=== PATIENT | female | born 1970 | race Caucasian/White ===

== ENCOUNTER 2021-01-13 11:05 | Emergency (ER) | payer SELFPAY ==
[2021-01-13 11:11] VITALS: BP 148/86; PULSE 116; RESP 20; TEMP 36.8; O2SAT 96; BMI 32.2
--- NOTE | 2021-01-13 13:02 | CT_ITS ---
WS: [id number] CT ABDOMEN PELVIS TECHNIQUE: Contrast-enhanced CT of the abdomen and pelvis with coronal and sagittal reformatted image s. CLINICAL INFORMATION: abd pain COMPARISON: CT 11 DLP: 1744.[address] scans at [facility] use at least one of these dose optimization techniques: automat ed exposure control; mA and/or kV adjustment per patient size (includes targeted exams where dose is matched to clinical indication); or iterative reconstruction. FINDINGS: Diffuse fatty infiltration the liver. Normal portal vein and splenic vein. Interval cholecystectomy. Small hemangioma in the left hepatic lobe. Normal spleen. Normal GE junction. Lung bases are well aer ated. Bronchiectasis in the left lower lobe is unchanged since 2017. Fatty atrophy of the pancreas. Normal spleen. Adrenal glands are normal. Normal renal parenchymal enh ancement. No hydronephrosis. Bilateral renal cysts. Normal caliber abdominal aorta. Tortuous appendix right lower quadrant appears normal. No evidence of acute appendicitis. Normal sigm oid colon. No evidence of small or large bowel obstruction. Enhancement involving the terminal ileum can be seen with terminal ileitis is similar in appearance to 2017. No free fluid in the pelvis. No a bdominal or pelvic lymphadenopathy. No inguinal lymphadenopathy. CT/CT abdomen pelvis w con* [id number] IMPRESSION: 1. Tortuous appendix in the right lower quadrant appears normal. 2. Mild diffuse fatty infiltration liver. 3. Prior cholecystectomy. 4. Small amount of enhancement involving the terminal ileum can be seen with t erminal ileitis. This is similar in appearance to 2017. 5. No evidence of small or large bowel obstruction.
--- NOTE | 2021-01-13 13:03 | CT_ITS ---
WS: [id number] CT HEAD TECHNIQUE: Noncontrast CT of the head obtained from the skullbase to the vertex. CLINICAL INFORMATION: headache dizziness, vision changes COMPARISON: CT 8 14,010 DLP: 843.[address] scans at [facility] use at least one of these dose optimization techniques: automat ed exposure control; mA and/or kV adjustment per patient size (includes targeted exams where dose is matched to clinical indication); or iterative reconstruction. FINDINGS: No evidence of intracranial hemorrhage or mass effect. Ventricular system and basal cisterns are mckeon nt. Mild small vessel changes with mild parenchymal volume loss. No extra-axial fluid collections. No evidence of mass or mass effect. Normal guillen-white differentiation. Fluid in the paranasal sinuses consistent with sinusitis. Mild mucosal thickening mastoid tips. CT/CT head wo con* [id number] IMPRESSION: 1. No evidence of intracranial hemorrhage or mass effect. 2. Mild small vessel changes. Mild parenchymal volume loss. 3. Paranasal sinusitis with air-fluid levels in the maxillary sinuses. 4. Mild mucosal thickening mastoid tips. 5. No acute intracranial findings.
--- NOTE | 2021-01-13 13:04 | ED_ITS ---
HPI - General Adult General: Chief complaint: General Medical Stated complaint: ABD PAIN, VISION COMING/GOING Time Seen by Provider: 01/13/21 12:53 History of Present Illness: HPI narrative: 44-year-old female presents emergency room with several vague complaints, some of which seem unconnected. Her main complaint seems to be nausea vomiting and diarrhea that she began with at around 2 AM this morning she woke up diaphoretic with for vertigo. She did not really take anything for it so far she has had similar problem in the past the vertigo has decreased some she denies any medic easy melena hematemesis coffee-ground she has had some dysuria she also is complaining of some right lower quadrant abdominal pain radiating into her right upper thigh. She is not previously had this. She relates as a new pain. Vision changes have resolved. Onset (ago): hour(s) Location: abdomen Radiation: non-radiation Severity: moderate Quality: aching Pain Consistency: intermittent Relieving factors: none Associated symptoms: Reports decreased appetite and vomiting; Deny chest pain, confusion, cough, diaphoresis, dyspnea, fevers/chills, headache(s), malaise, nausea, rash, palpitations, seizures, short of breath, syncope or weakness Treatments prior to arrival: none Review of Systems Const: Denies: malaise or diaphoresis ENMT: Denies: throat pain, ear or mastoid pain, nasal discharge or nasal congestion Card: Denies: chest pain, palpitations or syncope Resp: Denies: dyspnea GI: Reports: vomiting; Denies: nausea : Denies: flank pain, difficulty voiding, dysuria, urinary frequency or urinary urgency Skin/Breast: Denies: rash Neuro: Denies: headache(s) or confusion Physical Exam Const: COMMON NORMALS: no acute distress GENERAL APPEARANCE: cooperative and comfortable ORIENTATION/CONSCIOUSNESS: Yes awake, Yes oriented to person, Yes oriented to place and Yes oriented to time HENMT: COMMON NORMALS: normocephalic, atraumatic, hearing grossly normal bilaterally and external ears normal HEAD & SCALP: normocephalic and atraumatic EXTERNAL EAR: Yes external ears normal Neck/C-Spine: COMMON NORMALS: no JVD Resp: COMMON NORMALS: normal respiratory effort, No retractions, No use of accessory muscles and clear to auscultation bilaterally AUSCULTATION: clear to auscultation bilaterally Cardio: COMMON NORMALS: no JVD, regular rate, regular rhythm and No murmurs present (Cardio) RATE: regular rate RHYTHM: regular rhythm GI: COMMON NORMALS: No hepatosplenomegaly present AUSCULTATION: Yes normoactive bowel sounds PALPATION: Yes Tenderness to palpation present (GI), No Guarding due to palpation present (GI) and Yes No hepatosplenomegaly present Extremity: COMMON NORMALS: normal to inspection, capillary refill normal, no clubbing, cyanosis or edema, no calf tenderness and no pedal edema Neuro: SENSORIUM/ORIENTATION: Yes oriented to person, Yes oriented to place and Yes oriented to time Skin: COMMON NORMALS: no rashes or lesions noted GENERAL SKIN EXAM: no rashes or lesions noted Course Vital Signs: Vital signs: Vital Signs Temperature 98.2 F 01/13/21 11:11 Pulse Rate 79 01/13/21 15:36 Respiratory Rate 18 01/13/21 15:36 Blood Pressure 95/58 01/13/21 15:36 Pulse Oximetry 79 L 01/13/21 15:36 MDM - General Adult MDM Narrative: Medical decision making narrative: Symptoms improved work-up reviewed with the patient no significant finding were hemoglobin discharged home fluids of seem to help we will give her antiemetics on the CT there is a questionable colitis I am going to start her on some Flagyl and Cipro. Give her promethazine to help with nausea as well as dizziness and if she has persistent she needs follow-up with primary care for further evaluation if worsening or changes return Lab Data: Labs: Lab Results 01/13/21 01/13/21 01/13/21 Range/Units 13:24 13:24 14:24 WBC 16.9 H (4.0-10.0) 10^3/ uL RBC 5.35 H (4.1-5.3) 10^6/u L Hgb 15.5 H (11.5-15.3) g/dL Hct 48.1 H (37.0-47.0) % MCV 89.9 (81-99) fL MCH 29.0 (28.0-34.0) pg MCHC 32.2 (30.0-36.0) g/dL RDW 13.3 (12.1-15.1) % Plt Count 284 (130-400) 10^3/c mm MPV 10.3 (7.4-10.4) fL Neut % (Auto) 86.5 % Lymph % (Auto) 8.0 % [place] % (Auto) 4.4 % Eos % (Auto) 0.4 % Baso % (Auto) 0.3 % Neut # (Auto) 14.63 H (1.8-7.7) 10^3/u L Lymph # (Auto) 1.4 (0.8-4.8) 10^3/u L [place] # (Auto) 0.7 (0.2-0.9) 10^3/u L Eos # (Auto) 0.1 (0.0-0.8) 10^3/u L Baso # (Auto) 0.1 (0.0-0.1) 10^3/u L Nucleated RBC % (a uto) 0 % Nucleated RBCs # 0.0 /100WBC Sodium Cancelled Potassium Cancelled Chloride Cancelled Carbon Dioxide Cancelled Anion Gap Cancelled BUN Cancelled Creatinine Cancelled GFR Calculation Cancelled Glucose Cancelled Calculated Osmolal ity Cancelled Calcium Cancelled Total Bilirubin Cancelled AST Cancelled ALT Cancelled Alkaline Phosphata se Cancelled Total Protein Cancelled Albumin Cancelled Globulin Cancelled Urine Color Yellow (Yellow) Urine Appearance Clear (CLEAR) Urine pH 5 (5-7) Ur Specific Gravit y 1.010 (1.005-1.030) Urine Protein 1+ H (Negative) Urine Glucose (UA) Norm (Normal) Urine Ketones Negative (Negative) Urine Blood 2+ H (Negative) Urine Nitrate Negative (Negative) Urine Bilirubin Neg (Negative) Urine Urobilinogen Norm (Negative) mg/dL Ur Leukocyte Mamta ase Negative (Negative) Urine RBC 0-4 H (0-2) /hpf Urine WBC None (0-5) /hpf Ur Squamous Epith Cells 0-4 H (0-5) /hpf Amorphous Sediment Not Reportable Urine Bacteria Trace (NONE) /hpf 01/13/21 Range/Units 14:35 WBC (4.0-10.0) 10^3/ uL RBC (4.1-5.3) 10^6/u L Hgb (11.5-15.3) g/dL Hct (37.0-47.0) % MCV (81-99) fL MCH (28.0-34.0) pg MCHC (30.0-36.0) g/dL RDW (12.1-15.1) % Plt Count (130-400) 10^3/c mm MPV (7.4-10.4) fL Neut % (Auto) % Lymph % (Auto) % [place] % (Auto) % Eos % (Auto) % Baso % (Auto) % Neut # (Auto) (1.8-7.7) 10^3/u L Lymph # (Auto) (0.8-4.8) 10^3/u L [place] # (Auto) (0.2-0.9) 10^3/u L Eos # (Auto) (0.0-0.8) 10^3/u L Baso # (Auto) (0.0-0.1) 10^3/u L Nucleated RBC % (a uto) % Nucleated RBCs # /100WBC Sodium 136 Potassium 4.2 Chloride 101 Carbon Dioxide 21 L Anion Gap 18.2 BUN 14 Creatinine 0.5 GFR Calculation 131.7 H Glucose 99 Calculated Osmolal ity 283 L Calcium 9.2 Total Bilirubin 0.5 AST 12 ALT 18 Alkaline Phosphata se 120 H Total Protein 7.8 Albumin 4.8 Globulin 3.0 Urine Color (Yellow) Urine Appearance (CLEAR) Urine pH (5-7) Ur Specific Gravit y (1.005-1.030) Urine Protein (Negative) Urine Glucose (UA) (Normal) Urine Ketones (Negative) Urine Blood (Negative) Urine Nitrate (Negative) Urine Bilirubin (Negative) Urine Urobilinogen (Negative) mg/dL Ur Leukocyte Mamta ase (Negative) Urine RBC (0-2) /hpf Urine WBC (0-5) /hpf Ur Squamous Epith Cells (0-5) /hpf Amorphous Sediment Urine Bacteria (NONE) /hpf Discharge Plan Discharge Patient Disposition: Home Clinical Impression: Colitis, Dizziness Condition: Stable Prescriptions: New promethazine 25 mg tablet 25 mg PO Q6H PRN (Reason: nausea and vomiting) Qty: 20 RF: 0 Cipro 500 mg tablet 500 mg PO BID Qty: 20 RF: 0 Flagyl 500 mg tablet 500 mg PO BID 7 Days Qty: 14 RF: 0 Discharge Orders: Discharge ED (Routine); Ordered 01/13/21 Ordered By: Alexi Aranda Referrals: Lennox Moore MD [Primary Care Provider] - Discharge Diet: Clear Liquid Discharge Activity: Increase activity as tolerated Patient Instructions: Opioid Safety Coding Level of Care Code 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
[2021-01-13 13:29] LABS: Basophils # 0.1 10^3/uL (0.0-0.1); Basophils % 0.3 %; Eosinophils # 0.1 10^3/uL (0.0-0.8); Eosinophils % 0.4 %; Hematocrit 48.1 % (37.0-47.0); Hemoglobin 15.5 g/dL (11.5-15.3); Lymphocytes # 1.4 10^3/uL (0.8-4.8); Mean Corpuscular HGB Conc 32.2 g/dL (30.0-36.0); Mean Corpuscular Volume 89.9 fL (81-99); Mean Platelet Volume 10.3 fL (7.4-10.4); Monocytes # 0.7 10^3/uL (0.2-0.9); Monocytes % 4.4 %; Neutrophils # 14.63 10^3/uL (1.8-7.7); Neutrophils % 86.5 %; Nucleated Red Blood Cells % 0 %; Platelet Count 284 10^3/cmm (130-400); Red Blood Count 5.35 10^6/uL (4.1-5.3); Red Cell Distribution Width 13.3 % (12.1-15.1); White Blood Count 16.9 10^3/uL (4.0-10.0)
[2021-01-13] MEDS: sodium chloride 0.9% 1,000 ML 999 ML IV (13:36)
[2021-01-13] MEDS: ondansetron 2 mg/ML SDV 2 mL 4 MG IVP (13:36)
[2021-01-13] MEDS: iohexol 300 mg/mL 100 mL Btl IV (13:55)
[2021-01-13 14:44] LABS: Add Urine Microscopic? YES; Bilirubin Urine Neg (Negative); Blood Urine 2+ (Negative); Glucose Urine UA Norm (Normal); Ketones Urine Negative (Negative); Leukocyte Esterase Urine Negative (Negative); Nitrate Urine Negative (Negative); Protein Urine 1+ (Negative); Urine Appearance Clear (CLEAR); Urine Color Yellow (Yellow); Urobilinogen Urine Norm (Negative); pH Urine 5 (5-7)
[2021-01-13 14:46] LABS: Add Urine Culture? No; Bacteria Urine TRACE /hpf; RBC Urine 0-4 /hpf (0-2); Squamous Epithelial Cell Urine 0-4 /hpf (0-5)
[2021-01-13 15:03] LABS: Alanine Aminotransferase 18 U/L (0-33); Albumin Level 4.8 g/dL (3.5-5.2); Alkaline Phosphatase 120 IU/L (35-105); Anion Gap 18.2 (5-19); Aspartate Amino Transferase 12 U/L (0-32); Blood Urea Nitrogen 14 mg/dL (6-20); Calcium 9.2 mg/dL (8.5-10.5); Carbon Dioxide 21 mmol/L (22-29); Chloride 101 mmol/L (98-107); Glomerular Filtration Rate 131.7 mL/min (90-130); Glucose 99 mg/dL (65-115); Osmolality Calculated 283 mOsm/kg (285-295); Potassium 4.2 mmol/L (3.5-5.1); Sodium 136 mmol/L (136-145); Total Bilirubin 0.5 mg/dL (0.15-1.2); Total Protein 7.8 g/dL (6.6-8.7)
[2021-01-13 15:36] VITALS: BP 95/58; PULSE 79; RESP 18; O2SAT 79
== END 2021-01-13 16:44 | disposition home or self-care (01) ==
PROVIDERS: Emergency Provider Family Medicine; PCP Family Medicine
DX: K52.9 Noninfective gastroenteritis and colitis, unspecified (principal); R42 Dizziness and giddiness
CPT/HCPCS: 36415; 70450; 74177; 80053; 81001; 85025; 96361; 96374; 99283; J2405; J7030; Q9967

== ENCOUNTER 2021-05-17 11:23 | Emergency (ER) | payer SELFPAY ==
[2021-05-17 12:04] VITALS: BP 151/93; PULSE 93; RESP 18; TEMP 36.6; O2SAT 97; BMI 31.7
--- NOTE | 2021-05-17 12:13 | PC.NURSE ---
notified provider and charge nurse. Pt symptoms, flaccid right side of face since yesterday with pain to back of head and neck pain and difficulty swallowing.
--- NOTE | 2021-05-17 12:19 | W.ED.NEUROSD ---
HPI - Neuro Symptoms/Deficit General: Chief Complaint: Neuro Symptoms/Deficit Stated Complaint: Weakness right side of face, poss stroke Time Seen by Provider: 05/17/21 12:19 History of Present Illness: HPI Narrative: Ms. Lam is a 51-year-old lady with no significant past medical history presents emergency department due to facial numbness and tingling. Symptom onset was 2 days ago when she first noticed tingling in her lip. She subsequently developed weakness and facial droop on the right. This involves both the forehead and the mouth. She has difficulty swallowing subjectively and does have liquids run out of her mouth. She additionally endorses right posterior headache above the ear however this has been chronic for her and longstanding. 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 No rash. No head trauma. No other significant changes in health reported or infectious symptoms. 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 Symptom intensity is moderate. Pain is aching and shooting. Upon further discussion patient did endorse one episode of right hand weakness just prior to coming in. Review of Systems General: Reports: 10 or more systems reviewed and unremarkable except in HPI and below Physical Exam Narrative: EXAM NARRATIVE: GENERAL/CONSTITUTIONAL - well-appearing. No acute distress. Eyes - PERRL, no conjunctival injection ENMT - Atraumatic external nose and ears. Moist mucous membranes. TMs normal. No mastoid tenderness. NECK - supple. trachea midline CARDIOVASCULAR - regular rate and rhythm. Peripheral pulses 2+ and equal RESPIRATORY -clear to auscultation bilaterally. No retractions or accessory muscle use. ABDOMEN/GI - Nontender/Nondistended. No tenderness to percussion or evidence of peritonitis MSK - Extremities without obvious deformity or tenderness to palpation SKIN - Warm, Dry. No rashes. NEURO - alert and appropriately oriented. Right-sided facial droop involving both forehead and lower face. Cranial nerves otherwise intact. PSYCH - Appropriate mood and affect Course ED course: - Patient was seen and evaluated by me at bedside - Patient placed on cardiac monitors, IV access obtained - Initial evaluation notable for right-sided upper and lower facial droop, otherwise as noted above. No acute distress - Clinical presentation initially extremely consistent with Cullen's palsy however the patient subsequently endorses a history of an episode of right hand difficulty using a pen and tingling. Additionally she reports headache which is somewhat atypical for her in the posterior aspect of her right head. Therefore, after discussion of risk and benefit, we will pursue imaging at this time. - Imaging notable for no acute abnormality to explain neurologic symptoms, she does have some likely sinusitis. She describes an extended course of facial pressure associated with headache which raises concern for bacterial sinusitis - Upon serial reexamination after treatment the patient was similar. No new observed or reported neurologic deficits - Based on patient history, evaluation, labs, and imaging as interpreted the most likely cause of the patient's condition is Cullen's palsy and bacterial sinusitis - The results of ED evaluation were discussed with the patient including prescriptions and/or symptomatic cares (if applicable) including appropriate and responsible use, followup plan, and return precautions. The patient verbalized understanding and felt safe for discharge. - Patient discharged in satisfactory condition. Vital Signs: Vital signs: Vital Signs Temperature 97.9 F 05/17/21 12:04 Pulse Rate 78 05/17/21 15:45 Respiratory Rate 20 H 05/17/21 15:45 Blood Pressure 147/96 05/17/21 15:45 Pulse Oximetry 97 05/17/21 15:45 MDM - Neuro Symptoms/Deficit Medical Records: Attestation: I reviewed the patient's medical records. Lab Data: Attestation: I reviewed the patient's lab results. Discharge Plan Discharge Patient Disposition: Home Clinical Impression: Cullen's palsy, Sinusitis Condition: Stable Prescriptions: New Augmentin 875-125 mg tablet 1 tab PO BID Qty: 14 RF: 0 prednisone 20 mg tablet 60 mg PO DAILY Qty: 7 RF: 0 Discharge Orders: Discharge ED (Routine); Ordered 05/17/21 Ordered By: Efe Dominguez Referrals: Lennox Moore MD [Primary Care Provider] - Discharge Diet: Usual diet Discharge Activity: Resume usual activity Patient Instructions: Sinusitis (ED), Cullen Palsy (ED) Activity Restrictions/Additional Instructions: Thank you for visiting the emergency department. You were seen and evaluated for concern over facial droop. The cause of your symptoms is likely related to a condition called Cullen's palsy. You will be given a course of steroids. Incidentally you also have sinusitis which based on symptoms is likely bacterial. Please take the complete course even if you feel improved. Please return to the emergency department for new neurologic symptoms such as numbness, tingling, weakness, confusion, or anything else that you are concerned about and feel needs emergency department evaluation. 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
--- NOTE | 2021-05-17 12:55 | CTR_ITS ---
PROCEDURE INFORMATION: Exam: CT Angiography Head With Contrast, Arteriography Exam date and time: 05/17/2021 12:55 PM Age: 51 years old Clinical indication: Numbness; Patient HX: C/O R facial droop and weakness w difficulty swallowing x 2 days; Additional info: Stroke like symptoms TECHNIQUE: Imaging protocol: Computed tomography angiography of the head with contrast. Exam focused on the arteries. 3D rendering (Not supervised by radiologist): MIP and/or 3D reconstructed images were created by the technologist. Radiation optimization: All CT scans at this facility use at least one of these dose optimization techniques: automated exposure control; mA and/or kV adjustment per patient size (includes targeted exams where dose is matched to clinical indication); or iterative reconstruction. Contrast material: OMNI 350; Contrast volume: 95 ml; Contrast route: INTRAVENOUS (IV); COMPARISON: CT head wo con* [id number] 05/17/2021 1:50 PM RADIATION DOSE METRICS: Total DLP (mGy-cm): 2021.6 FINDINGS: ANTERIOR CIRCULATION: Right internal carotid artery: There is calcified plaque in the carotid siphons with luminal irregularity. No significant focal stenosis. No aneurysm. Right middle cerebral artery: Unremarkable. No occlusion or significant stenosis. No aneurysm. Right anterior cerebral artery: Unremarkable. No occlusion or significant stenosis. No aneurysm. Left internal carotid artery: There is calcified plaque in the carotid siphons with luminal irregularity. No significant focal stenosis. No aneurysm. Left middle cerebral artery: Unremarkable. No occlusion or significant stenosis. No aneurysm. Left anterior cerebral artery: Unremarkable. No occlusion or significant stenosis. No aneurysm. POSTERIOR CIRCULATION: Right vertebral artery: Unremarkable. No occlusion or significant stenosis. No aneurysm. Left vertebral artery: Unremarkable. No occlusion or significant stenosis. No aneurysm. Basilar artery: Unremarkable. No occlusion or significant stenosis. No aneurysm. Right posterior cerebral artery: Unremarkable. No occlusion or significant stenosis. No aneurysm. Left posterior cerebral artery: Unremarkable. No occlusion or significant stenosis. No aneurysm. Brain: No definite mass, mass effect, or midline shift. Cerebral ventricles: No ventriculomegaly. Bones/joints: Unremarkable. No acute fracture. Soft tissues: Unremarkable. There is mucosal thickening of the ethmoid air cells and maxillary sinuses. Air-fluid levels are present in the maxillary sinuses. Frothy secretions are present in the nasopharynx and oropharynx. A frothy air-fluid levels present in the right frontal sinus. IMPRESSION: No large vessel stenosis, occlusion, or large aneurysm. There is paranasal sinusitis as described above. PROCEDURE INFORMATION: Exam: CT Angiography Neck With Contrast Exam date and time: 05/17/2021 12:55 PM Age: 51 years old Clinical indication: Numbness; Patient HX: C/O R facial droop and weakness w difficulty swallowing x 2 days; Additional info: Stroke like symptoms TECHNIQUE: Imaging protocol: Computed tomography angiography of the neck with contrast. 3D rendering (Not supervised by radiologist): MIP and/or 3D reconstructed images were created by the technologist. Radiation optimization: All CT scans at this facility use at least one of these dose optimization techniques: automated exposure control; mA and/or kV adjustment per patient size (includes targeted exams where dose is matched to clinical indication); or iterative reconstruction. Contrast material: OMNI 350; Contrast volume: 95 ml; Contrast route: INTRAVENOUS (IV); COMPARISON: CT head wo con* [id number] 05/17/2021 1:50 PM RADIATION DOSE METRICS: Total DLP (mGy-cm): 2021.6 FINDINGS: Right common carotid artery: Mild atherosclerotic plaque. No stenosis. No dissection or occlusion. Right internal carotid artery: Mild atherosclerotic plaque. No stenosis of the extracranial segment. No dissection or occlusion. Right external carotid artery: No occlusion or stenosis of the origin. Left common carotid artery: Mild atherosclerotic plaque. No stenosis. No dissection or occlusion. Left internal carotid artery: Mild atherosclerotic plaque. No stenosis of the extracranial segment. No dissection or occlusion. Left external carotid artery: No occlusion or stenosis of the origin. Right vertebral artery: No stenosis. No dissection or occlusion. Left vertebral artery: No stenosis. No dissection or occlusion. Soft tissues: Normal. No significant soft tissue swelling. Bones/joints: No acute fracture. CT/CT angio headneck* [id number] IMPRESSION: No stenosis or occlusion. REFERENCES: NASCET CRITERIA. The degree of internal carotid artery stenosis is based on NASCET criteria. Normal is no stenosis. Mild is less than 50% stenosis. Moderate is 50-69% stenosis. Severe is 70% to 99% stenosis. Total occlusion is no detectable patent lumen. Radiation Dose CTDIVOL = (mGy): DLP = 2.6~2021.6 (mGy-cm)
--- NOTE | 2021-05-17 12:55 | CTR_ITS ---
PROCEDURE INFORMATION: Exam: CT Head Without Contrast Exam date and time: 05/17/2021 12:55 PM Age: 51 years old Clinical indication: Facial weakness. Complains of right facial droop and weakness with difficulty swallowing x 2 days. Right facial numbness/weakness. Arm weakness. TECHNIQUE: Imaging protocol: Computed tomography of the head without contrast. Radiation optimization: All CT scans at this facility use at least one of these dose optimization techniques: automated exposure control; mA and/or kV adjustment per patient size (includes targeted exams where dose is matched to clinical indication); or iterative reconstruction. COMPARISON: CT head wo con* [id number] 01/13/2021 1:43 PM RADIATION DOSE METRICS: Total DLP (mGy-cm): 825.31 FINDINGS: Brain: No acute intracranial hemorrhage. Unchanged lacunar infarct in the right basal ganglia. No mass, mass effect or midline shift.. There is no evidence of acute large vessel infarct.. There is very mild presumed small vessel ischemic disease of indeterminate age. The posterior fossa is grossly unremarkable; however, it is partially obscurred by beam hardening artifact. Cerebral ventricles: The ventricles are unchanged in configuration. Paranasal sinuses: There is mucosal thickening in the maxillary and ethmoid sinuses. There is partial opacification of several ethmoid air cells. There is opacification of the right frontal ethmoidal recess. There is layering fluid in the maxillary sinuses. Mastoid air cells: There is opacification of a few mastoid air cells bilaterally. Auditory system: Probable cerumen in the left external auditory canal. Orbital cavity: The visualized orbits are unremarkable. Bones/joints: No acute fracture is seen. CT/CT head wo con* [id number] IMPRESSION: 1. Very mild presumed small vessel ischemic disease of indeterminate age. 2. No evidence of acute large vessel infarct by noncontrast CT. 3. No acute intracranial hemorrhage. 4. Acute sinusitis as above. Radiation Dose CTDIVOL = (mGy): DLP = 825.31 (mGy-cm)
[2021-05-17] MEDS: iohexol 350 mg/mL 100 mL Btl IV (14:03)
[2021-05-17 14:08] VITALS: BP 176/110; PULSE 83; RESP 13; O2SAT 96
[2021-05-17 15:08] VITALS: BP 147/96; PULSE 78; RESP 20; O2SAT 97
[2021-05-17 15:45] VITALS: BP 147/96; PULSE 78; RESP 20; O2SAT 97
== END 2021-05-17 15:46 | disposition home or self-care (01) ==
PROVIDERS: Emergency Provider Emergency Medicine; PCP Family Medicine
DX: G51.0 Bell's palsy (principal); J32.9 Chronic sinusitis, unspecified
CPT/HCPCS: 70450; 70496; 70498; 99283; Q9967

== ENCOUNTER 2022-05-25 19:20 | Emergency (ER) | payer MEDICAID, SELFPAY ==
[2022-05-25 19:30] VITALS: BP 148/78; PULSE 94; RESP 18; TEMP 36.7; O2SAT 97; BMI 30.9
--- NOTE | 2022-05-25 20:22 | W.ED.ABDPA2 ---
HPI - Abdominal Pain General: Chief Complaint: Abdominal Pain Stated Complaint: ABD Pain Time Seen by Provider: 05/25/22 20:22 History of Present Illness: [id number] female comes in today for complaints of right upper quadrant abdominal pain radiating to the groin. Patient reports the pain is been on and off for 1 month. Was unable to control the pain with home medications. Patient been using acetaminophen and ibuprofen for pain. Patient takes no routine medicine. Patient has had gallbladder removal. Patient denies any other chronic medical conditions. Associated Symptoms: Reports nausea and vomiting; Denies fever(s) Review of Systems Const: Denies: fever(s) GI: Reports: abdominal pain, nausea and vomiting Musc: Denies: neck pain or back pain Skin/Breast: Denies: rash or pruritus Physical Exam Const: COMMON NORMALS: alert HENMT: COMMON NORMALS: normocephalic HEAD & SCALP: normocephalic Neck/C-Spine: COMMON NORMALS: full ROM Resp: COMMON NORMALS: normal respiratory effort and clear to auscultation bilaterally AUSCULTATION: clear to auscultation bilaterally Cardio: COMMON NORMALS: regular rate and regular rhythm RATE: regular rate RHYTHM: regular rhythm GI: COMMON NORMALS: Soft to palpation AUSCULTATION: Yes normoactive bowel sounds PALPATION: Yes Soft to palpation and Yes Tenderness to palpation present (GI) Details: RUQ : BLADDER/KIDNEY EXAM: Yes CVA tenderness on the right Back/Pelvis: GENERAL BACK: Yes CVA tenderness Extremity: COMMON NORMALS: no pedal edema Neuro: SENSORIUM/ORIENTATION: Yes alert Skin: COMMON NORMALS: turgor normal GENERAL SKIN EXAM: turgor normal Course Vital Signs: Vital signs: Vital Signs Temperature 98.1 F 05/25/22 19:30 Pulse Rate 79 05/25/22 22:46 Respiratory Rate 18 05/25/22 22:46 Blood Pressure 117/80 05/25/22 22:46 Pulse Oximetry 96 05/25/22 22:46 Oxygen Delivery Me thod 05/25/22 21:51 MDM - Abdominal Pain Medical Decision Making 52-year-old female comes in today for complaints of right upper quadrant abdominal pain radiating to her groin. Patient does have some right CVA tenderness. Abdomen soft nontender. Rebound tenderness is noted. Bowel sounds are present throughout. Lungs clear to auscultation. Differential diagnosis includes without limited to appendicitis, renal calculi, colitis. CBC noted a white count of 13,000. CMP was unremarkable. Urinalysis was noted calcium oxylate crystals. CT of the abdomen pelvis noted colitis suggestive of diverticulitis. No sign of acute surgical abdomen was noted. We will treat patient for diverticulitis. Patient was placed on antibiotics encouraged drink plenty of fluids and have a fibrous diet. Patient was written for short course of hydrocodone for her pain. Patient reported understanding of care plan need for follow-up or return to the ER. Lab Data : 05/25/22 21:16 05/25/22 21:16 Labs/Radiology: Radiology Impressions Abdomen/Pelvis CT 05/25/22 20:33 IMPRESSION: 1. Small amount of edema adjacent to the mid sigmoid colon somewhat in the area of several diverticula perhaps reflecting a diverticulitis or perhaps a colitis. 2. Emphysematous changes. 3. Left lower lobe bronchiectasis with some bronchial wall thickening, consider further evaluation with nonemergent dedicated chest CT. 4. Cholecystectomy. 5. Left kidney cyst again seen, negative for follow-up advised. 6. Constipation. Laboratory Results WBC 13.7 10^3/uL (4.0-10.0) H 05/25/22 21:16 RBC 5.00 10^6/uL (4.1-5.3) 05/25/22 21:16 Hgb 14.9 g/dL (11.5-15.3) 05/25/22 21:16 Hct 46.5 % (37.0-47.0) 05/25/22 21:16 MCV 93.0 fl (81-99) 05/25/22 21:16 MCH 29.8 pg (28.0-34.0) 05/25/22 21:16 MCHC 32.0 g/dL (30.0-36.0) 05/25/22 21:16 RDW 13.1 % (12.1-15.1) 05/25/22 21:16 Plt Count 290 10^3/cmm (130-400) 05/25/22 21:16 MPV 10.1 fL (7.4-10.4) 05/25/22 21:16 Neut % (Auto) 66.9 % 05/25/22 21:16 Lymph % (Auto) 23.5 % 05/25/22 21:16 [place] % (Auto) 5.5 % 05/25/22 21:16 Eos % (Auto) 3.0 % 05/25/22 21:16 Baso % (Auto) 0.5 % 05/25/22 21:16 Neut # (Auto) 9.13 10^3/uL (1.8-7.7) H 05/25/22 21:16 Lymph # (Auto) 3.2 10^3/uL (0.8-4.8) 05/25/22 21:16 [place] # (Auto) 0.8 10^3/uL (0.2-0.9) 05/25/22 21:16 Eos # (Auto) 0.4 10^3/uL (0.0-0.8) 05/25/22 21:16 Baso # (Auto) 0.1 10^3/uL (0.0-0.1) 05/25/22 21:16 Nucleated RBC % (auto) 0 % 05/25/22 21:16 Nucleated RBCs # 0.0 /100WBC 05/25/22 21:16 Sodium 141 mmol/L (136-145) 05/25/22 21:16 Potassium 4.1 mmol/L (3.5-5.1) 05/25/22 21:16 Chloride 103 mmol/L (98-107) 05/25/22 21:16 Carbon Dioxide 24 mmol/L (22-29) 05/25/22 21:16 Anion Gap 18.1 (5-19) 05/25/22 21:16 BUN 12 mg/dL (6-20) 05/25/22 21:16 Creatinine 0.6 mg/dL (0.5-0.9) 05/25/22 21:16 GFR Calculation 105.8 mL/min (90-130) 05/25/22 21:16 Glucose 103 mg/dL (65-115) 05/25/22 21:16 Calculated Osmolality 292 mOsm/kg (285-295) 05/25/22 21:16 Calcium 10.2 mg/dL (8.5-10.5) 05/25/22 21:16 Total Bilirubin 0.5 mg/dL (0.15-1.2) 05/25/22 21:16 AST 12 U/L (0-32) 05/25/22 21:16 ALT 15 U/L (0-33) 05/25/22 21:16 Alkaline Phosphatase 103 U/L (35-105) 05/25/22 21:16 Total Protein 7.9 g/dL (6.6-8.7) 05/25/22 21:16 Albumin 4.4 g/dL (3.5-5.2) 05/25/22 21:16 Globulin 3.5 g/dL (1.3-4.6) 05/25/22 21:16 Lipase 29 U/L (13-60) 05/25/22 21:16 HCG, Qual Negative (Negative) 05/25/22 21:16 Urine Color Eblle (Yellow) 05/25/22 21:04 Urine Appearance Hazy (CLEAR) A 05/25/22 21:04 Urine pH 5 (5-7) 05/25/22 21:04 Ur Specific [place] 1.020 (1.005-1.030) 05/25/22 21:04 Urine Protein Trace (Negative) 05/25/22 21:04 Urine Glucose (UA) Norm (Normal) 05/25/22 21:04 Urine Ketones 2+ (Negative) H 05/25/22 21:04 Urine Blood 2+ (Negative) H 05/25/22 21:04 Urine Nitrate Negative (Negative) 05/25/22 21:04 Urine Bilirubin 1+ (Negative) H 05/25/22 21:04 Urine Urobilinogen 4 mg/dL (Negative) H 05/25/22 21:04 Ur Leukocyte Esterase 1+ (Negative) H 05/25/22 21:04 Urine RBC 0-4 /hpf (0-2) H 05/25/22 21:04 Urine WBC 0-4 /hpf (0-5) H 05/25/22 21:04 Ur Squamous Epith Cells 0-4 /hpf (0-5) H 05/25/22 21:04 Calcium Oxalate Crystal 40-55 /hpf H 05/25/22 21:04 Amorphous Sediment Not Reportable 05/25/22 21:04 Urine Bacteria Trace /hpf (NONE) 05/25/22 21:04 Discharge Plan Discharge Patient Disposition: Home Clinical Impression: Diverticulitis Condition: Stable Prescriptions: New ciprofloxacin HCl 500 mg tablet 500 mg PO BID Qty: 10 0RF metronidazole 500 mg tablet 500 mg PO BID Qty: 10 0RF hydrocodone-acetaminophen 5-325 mg tablet 1 tab PO Q6H PRN (Reason: pain (scale score 7-10)) Qty: 10 0RF No Action Augmentin 875-125 mg tablet 1 tab PO BID Qty: 14 0RF prednisone 20 mg tablet 60 mg PO DAILY Qty: 7 0RF Discharge Orders: Discharge ED (Routine); Ordered 05/25/22 Ordered By: James Maurer Referrals: Fela Cooper PA [Primary Care Provider] - Discharge Diet: Usual diet Discharge Activity: Increase activity as tolerated Patient Instructions: Diverticulitis (ED), Opioid Safety Activity Restrictions/Additional Instructions: Drink plenty of fluids. Eat a fibrous diet. Use medication as directed. Follow-up with primary care in 1 week. Return to ER for worsening symptoms or new concerns. Coding Level of Care Code ED Clerk Manager for Alison [facility]wbright Exam Comprehensive
--- NOTE | 2022-05-25 20:33 | CTR_ITS ---
PROCEDURE INFORMATION: Exam: CT Abdomen And Pelvis Without Contrast Exam date and time: 05/25/2022 10:15 PM Age: 52 years old Clinical indication: Abdominal pain; Acute; Prior surgery; Surgery date: 6+ months; Surgery type: Gb, tubal; Additional info: Right abd pain radiating to groin TECHNIQUE: Imaging protocol: Computed tomography of the abdomen and pelvis without contrast. Radiation optimization: All CT scans at this facility use at least one of these dose optimization techniques: automated exposure control; mA and/or kV adjustment per patient size (includes targeted exams where dose is matched to clinical indication); or iterative reconstruction. COMPARISON: CT abdomen pelvis w con* [id number] 01/13/2021 1:47 PM RADIATION DOSE METRICS: Total DLP (mGy-cm): 798.5 FINDINGS: Lungs: Emphysematous changes. Left lower lobe bronchiectasis with some bronchial wall thickening, consider further evaluation with nonemergent dedicated chest CT. Liver: Normal. No mass. Gallbladder and bile ducts: Cholecystectomy. Pancreas: Normal. No ductal dilation. Spleen: Normal. No splenomegaly. Adrenal glands: Normal. No mass. Kidneys and ureters: Left kidney cyst again seen, negative for follow-up advised. Stomach and bowel: Small amount of edema adjacent to the mid sigmoid colon somewhat in the area of several diverticula perhaps reflecting a diverticulitis or perhaps a colitis. Constipation. Appendix: No evidence of appendicitis. Intraperitoneal space: Unremarkable. No free air. No significant fluid collection. Vasculature: Unremarkable. No abdominal aortic aneurysm. Lymph nodes: Unremarkable. No enlarged lymph nodes. Urinary bladder: Unremarkable as visualized. Reproductive: Unremarkable as visualized. Bones/joints: Unremarkable. No acute fracture. Soft tissues: Unremarkable. CT/CT kidney stone [id number] IMPRESSION: 1. Small amount of edema adjacent to the mid sigmoid colon somewhat in the area of several diverticula perhaps reflecting a diverticulitis or perhaps a colitis. 2. Emphysematous changes. 3. Left lower lobe bronchiectasis with some bronchial wall thickening, consider further evaluation with nonemergent dedicated chest CT. 4. Cholecystectomy. 5. Left kidney cyst again seen, negative for follow-up advised. 6. Constipation.
[2022-05-25 21:07] VITALS: BP 114/70; PULSE 89; RESP 16; O2SAT 95
[2022-05-25] MEDS: ondansetron 2 mg/ML SDV 2 mL 4 MG IVP (21:15)
[2022-05-25] MEDS: ketorolac 30 mg/mL INJ 15 MG IVP (21:15)
[2022-05-25] MEDS: sodium chloride 0.9% 1,000 ML 999 ML IV (21:15)
[2022-05-25 21:16] VITALS: RESP 16; O2SAT 96
[2022-05-25] MEDS: fentaNYL 50 mcg/mL INJ 2mL IVP (21:16)
[2022-05-25 21:43] LABS: Urine Appearance Hazy (CLEAR); Urine Color Amber (Yellow)
[2022-05-25 21:44] LABS: Add Urine Microscopic? YES; Bilirubin Urine 1+ (Negative); Blood Urine 2+ (Negative); Glucose Urine UA Norm (Normal); Ketones Urine 2+ (Negative); Leukocyte Esterase Urine 1+ (Negative); Nitrate Urine Negative (Negative); Protein Urine Trace (Negative); Urobilinogen Urine 4 mg/dL (Negative); pH Urine 5 (5-7)
[2022-05-25 21:46] LABS: Add Urine Culture? No; Bacteria Urine TRACE /hpf; Calcium Oxalate Crystals Urine 40-55 /hpf; RBC Urine 0-4 /hpf (0-2); Squamous Epithelial Cell Urine 0-4 /hpf (0-5); WBC Urine 0-4 /hpf (0-5)
[2022-05-25 21:47] LABS: Basophils # 0.1 10^3/uL (0.0-0.1); Basophils % 0.5 %; Eosinophils # 0.4 10^3/uL (0.0-0.8); Hematocrit 46.5 % (37.0-47.0); Hemoglobin 14.9 g/dL (11.5-15.3); Lymphocytes # 3.2 10^3/uL (0.8-4.8); Lymphocytes % 23.5 %; Mean Corpuscular Hemoglobin 29.8 pg (28.0-34.0); Mean Platelet Volume 10.1 fL (7.4-10.4); Monocytes # 0.8 10^3/uL (0.2-0.9); Monocytes % 5.5 %; Neutrophils # 9.13 10^3/uL (1.8-7.7); Neutrophils % 66.9 %; Nucleated Red Blood Cells % 0 %; Platelet Count 290 10^3/cmm (130-400); Red Cell Distribution Width 13.1 % (12.1-15.1); White Blood Count 13.7 10^3/uL (4.0-10.0)
[2022-05-25 21:51] VITALS: BP 142/62; PULSE 80; RESP 18; O2SAT 95
[2022-05-25 22:06] LABS: HCG, Serum Qual Negative (Negative)
[2022-05-25 22:10] LABS: Alanine Aminotransferase 15 U/L (0-33); Albumin Level 4.4 g/dL (3.5-5.2); Alkaline Phosphatase 103 U/L (35-105); Anion Gap 18.1 (5-19); Aspartate Amino Transferase 12 U/L (0-32); Blood Urea Nitrogen 12 mg/dL (6-20); Calcium 10.2 mg/dL (8.5-10.5); Carbon Dioxide 24 mmol/L (22-29); Chloride 103 mmol/L (98-107); Globulin 3.5 g/dL (1.3-4.6); Glomerular Filtration Rate 105.8 mL/min (90-130); Glucose 103 mg/dL (65-115); Lipase 29 U/L (13-60); Osmolality Calculated 292 mOsm/kg (285-295); Potassium 4.1 mmol/L (3.5-5.1); Sodium 141 mmol/L (136-145); Total Bilirubin 0.5 mg/dL (0.15-1.2); Total Protein 7.9 g/dL (6.6-8.7)
[2022-05-25 22:46] VITALS: BP 117/80; PULSE 79; RESP 18; O2SAT 96
[2022-05-25] MEDS: ciprofloxacin 500 mg Tablet PO (23:27)
[2022-05-25] MEDS: metroNIDAZOLE 500 MG Tablet PO (23:27)
== END 2022-05-25 23:42 | disposition home or self-care (01) ==
PROVIDERS: Emergency Provider Nurse Practitioner Family; PCP Physician Assistant
DX: K57.92 Diverticulitis of intestine, part unspecified, without perforation or abscess without bleeding (principal)
CPT/HCPCS: 74176; 80053; 81001; 83690; 84703; 85025; 96361; 96374; 96375; 99285; J1885; J2405; J3010; J7030

== ENCOUNTER 2022-08-26 12:19 | Emergency (ER) | payer MEDICAID, BC, SELFPAY ==
[2022-08-26] VITALS (40 sets, daily range): BP systolic 93–154; BP diastolic 50–80; PULSE 67–104; RESP 13–26; TEMP 37.5; O2SAT 90–99
--- NOTE | 2022-08-26 12:45 | XRR_ITS ---
PROCEDURE INFORMATION: Exam: XR Chest Exam date and time: 08/26/2022 12:58 PM Age: 52 years old Clinical indication: Shortness of breath; Prior surgery; Surgery type: Gb, tubal; Additional info: Dyspnea/cough TECHNIQUE: Imaging protocol: Radiologic exam of the chest. Views: 1 view. COMPARISON: CR XR chest 1V [id number] 06/29/2017 1:15 PM FINDINGS: Lungs: Unremarkable. No consolidation. Pleural spaces: Unremarkable. No pleural effusion. No pneumothorax. Heart/Mediastinum: Unremarkable. No cardiomegaly. Bones/joints: Unremarkable. XR/XR chest 1V portable [id number] IMPRESSION: No acute findings.
--- NOTE | 2022-08-26 12:53 | PC.NURSE ---
patient placed on knife setter assembler, spo2, and BP
--- NOTE | 2022-08-26 13:03 | ED_ITS ---
Documented by User: Alexi Aranda DO 09/08/22 06:19 HPI - Abdominal Pain General: Chief Complaint: Abdominal Pain Stated Complaint: SOB Time Seen by Provider: 08/26/22 12:43 Source: patient Mode of arrival: ambulatory History of Present Illness: 52-year-old female presents emergency room with complaints of difficulty urinating and severe left lower quadrant pain that began 3 to 4 days earlier this week and has progressively worsened throughout the last several days. She has had a subjective fever. She has had decreasing bowel movements. Increasing bloating nausea. His previous history shows episodes of diverticulitis states this feels the same she had 1 treated last May it seemed like she got better than began progressively worsening reaching its apex and this last week. MD elicited complaint: abdominal pain Onset (ago): day(s) (3-4) Pain Consistency: intermittent Location: Suprapubic Quality: cramping Associated Symptoms: Reports anorexia, bloating, change in bowel habits, change in stool character, GI cramping, diarrhea, fever(s), nausea and poor appetite; Denies belching, chills, coffee ground emesis, constipation, dyspepsia, dysuria, excessive flatus, heartburn, hematochezia, hematuria, hematemesis, fecal incontinence, loose stools, melena, syncope and vomiting Review of Systems Const: Reports: fever(s); Denies: chills, fatigue or malaise ENMT: Denies: throat pain, ear or mastoid pain, nasal discharge or nasal congestion Card: Denies: chest pain or syncope Resp: Denies: dyspnea, productive cough or non-productive cough GI: Reports: abdominal pain, nausea, diarrhea, bloating, GI cramping, change in bowel habits and change in stool character; Denies: vomiting, hematemesis, coffee ground emesis, heartburn, constipation, belching, excessive flatus, fecal incontinence, hematochezia or melena : Denies: dysuria or hematuria Musc: Denies: neck pain or back pain Skin/Breast: Denies: rash or pruritus PFS ED PFSH: Medical History (Updated 09/08/22 @ 06:19 by Alexi Aranda DO) Diverticulitis Social History (Updated 09/08/22 @ 06:14 by Alexi Aranda DO) Smoking and tobacco status: never smoked Alcohol intake: never Physical Exam Const: GENERAL APPEARANCE: cooperative ORIENTATION/CONSCIOUSNESS: Yes awake, Yes oriented to person, Yes oriented to place and Yes oriented to time HENMT: COMMON NORMALS: normocephalic, atraumatic and hearing grossly normal bilaterally HEAD & SCALP: normocephalic and atraumatic Resp: COMMON NORMALS: normal respiratory effort, No retractions, No use of accessory muscles and clear to auscultation bilaterally AUSCULTATION: clear to auscultation bilaterally Cardio: COMMON NORMALS: regular rate, regular rhythm and No murmurs present (Cardio) RATE: regular rate RHYTHM: regular rhythm GI: COMMON NORMALS: No hepatosplenomegaly present INSPECTION: Yes abdominal distension AUSCULTATION: Yes Absent bowel sounds PALPATION: Yes Tenderness to palpation present (GI) Details: LLQ, Yes Guarding due to palpation present (GI) and Yes No hepatosplenomegaly present PERCUSSION: tympanic to percussion Extremity: COMMON NORMALS: normal to inspection, capillary refill normal, no clubbing, cyanosis or edema, no calf tenderness and no pedal edema Neuro: SENSORIUM/ORIENTATION: Yes oriented to person, Yes oriented to place and Yes oriented to time Skin: COMMON NORMALS: no rashes or lesions noted GENERAL SKIN EXAM: no rashes or lesions noted Course Vital Signs: Vital signs: Vital Signs Temperature 98.6 F 08/27/22 08:14 Pulse Rate 80 08/27/22 09:58 Respiratory Rate 18 08/27/22 09:58 Blood Pressure 97/55 08/27/22 09:58 Pulse Oximetry 98 08/27/22 09:58 Oxygen Delivery Me thod 08/27/22 08:00 MDM - Abdominal Pain Medical Decision Making CT results reviewed. Patient has gynecologic mass posterior to the uterus radiology is uncertain as it is uterine in origin or ovarian mass that is contiguous with with the perforation sigmoid colon from diverticulitis. Discussed with general surgery they do not feel comfortable evaluating or managing at our facility and recommend transfer. Care signed out to Dr. Dominguez at change of shift. See final notes for diagnosis and disposition. Patient care handoff received from Dr. Aranda pending completion of evaluation and accepting outside facility. I personally saw and evaluated the patient, reperformed taylor portions of E/M, and kept her up-to-date with plan of care. M edications ordered for symptom treatment. Antibiotics continued as well as maintenance fluids initiated. For borderline blood pressure fluid bolus ordered. Patient evidence of diverticulitis with perforation and likely abscess formation, case is complicated by new mass likely a gynecologic malignancy. CT does raise evidence of adhesions and per Dr. Aranda our general surgery service recommended transfer for gynecologic oncology services if the patient required operative intervention. Challenging situation as the patient requires subspecialty services and that availability is limited requiring call to multiple facilities for accepting. I did find accepting physician within the [facility] system in [place]. Patient excepted by Dr. Whitfield, I also discussed case with [employer] Manager onc who is willing to consult. The results of ED evaluation were discussed with the patient including plan for transfer due to requirement for level of care not available if discharged to prevent significant worsening/deterioration. Patient agreeable with plan. Patient care discussed with Dr. Vasquez pending transport to higher level care. Efe Dominguez MD Emergency Medicine Medical Records I reviewed the patient's medical records. Lab Data I reviewed the patient's lab results. 08/26/22 13:47 08/26/22 13:47 Labs/Radiology: Radiology Impressions Chest X-Ray 08/26/22 12:45 IMPRESSION: No acute findings. Abdomen/Pelvis CT 08/26/22 13:06 IMPRESSION: 1. New heterogeneously enhancing masslike HOSPITAL PLAN ADMINISTRATOR lesion along the RIGHT posterior uterus suspicious for HOSPITAL PLAN ADMINISTRATOR neoplasm such as leiomyosarcoma or ovarian carcinoma. This is new since 2021. Adjacent tubal ligation clips. 2. Multiple new low-attenuation lesions in the liver suspicious for metastatic disease considering HOSPITAL PLAN ADMINISTRATOR findings. Microabscesses less likely. 3. Evidence of acute diverticulitis with small microperforation and small fluid collection measuring 1.6 x 1.7 CM. 4. A few low-attenuation enlarged lymph nodes in the LEFT greater than RIGHT iliac chains and pelvis suspicious for metastatic disease versus less likely reactive lymph nodes. 5. Evidence of adhesions with tethering of the sigmoid colon and ileum in the pelvis. 6. Slight patchy infiltrates or atelectasis LEFT lower lobe. Bronchovascular thickening LEFT lower lobe. Notified Alexi Aranda DO at 08/26/2022 2:47 PM. Laboratory Results WBC 14.7 10^3/uL (4.0-10.0) H 08/26/22 13:47 RBC 4.57 10^6/uL (4.1-5.3) 08/26/22 13:47 Hgb 13.2 g/dL (11.5-15.3) 08/26/22 13:47 Hct 40.7 % (37.0-47.0) 08/26/22 13:47 MCV 89.1 fl (81-99) 08/26/22 13:47 MCH 28.9 pg (28.0-34.0) 08/26/22 13:47 MCHC 32.4 g/dL (30.0-36.0) 08/26/22 13:47 RDW 12.4 % (12.1-15.1) 08/26/22 13:47 Plt Count 337 10^3/cmm (130-400) 08/26/22 13:47 MPV 10.2 fL (7.4-10.4) 08/26/22 13:47 Neut % (Auto) 74.5 % 08/26/22 13:47 Lymph % (Auto) 17.5 % 08/26/22 13:47 Nash % (Auto) 6.2 % 08/26/22 13:47 Eos % (Auto) 1.2 % 08/26/22 13:47 Baso % (Auto) 0.3 % 08/26/22 13:47 Neut # (Auto) 10.97 10^3/uL (1.8-7.7) H 08/26/22 13:47 Lymph # (Auto) 2.6 10^3/uL (0.8-4.8) 08/26/22 13:47 Nash # (Auto) 0.9 10^3/uL (0.2-0.9) 08/26/22 13:47 Eos # (Auto) 0.2 10^3/uL (0.0-0.8) 08/26/22 13:47 Baso # (Auto) 0.1 10^3/uL (0.0-0.1) 08/26/22 13:47 Nucleated RBC % (auto) 0 % 08/26/22 13:47 Nucleated RBCs # 0.0 /100WBC 08/26/22 13:47 Sodium 137 mmol/L (136-145) 08/26/22 13:47 Potassium 3.9 mmol/L (3.5-5.1) 08/26/22 13:47 Chloride 100 mmol/L (98-107) 08/26/22 13:47 Carbon Dioxide 20 mmol/L (22-29) L 08/26/22 13:47 Anion Gap 20.9 (5-19) H 08/26/22 13:47 BUN 7 mg/dL (6-20) 08/26/22 13:47 Creatinine 0.5 mg/dL (0.5-0.9) 08/26/22 13:47 GFR Calculation 130.6 mL/min (90-130) H 08/26/22 13:47 Glucose 85 mg/dL (65-115) 08/26/22 13:47 Calculated Osmolality 281 mOsm/kg (285-295) L 08/26/22 13:47 Lactic Acid 1.0 mmol/L (0.5-2.2) 08/26/22 13:47 Calcium 9.2 mg/dL (8.5-10.5) 08/26/22 13:47 Total Bilirubin 0.4 mg/dL (0.15-1.2) 08/26/22 13:47 AST 10 U/L (0-32) 08/26/22 13:47 ALT 8 U/L (0-33) 08/26/22 13:47 Alkaline Phosphatase 90 U/L (35-105) 08/26/22 13:47 Total Protein 7.4 g/dL (6.6-8.7) 08/26/22 13:47 Albumin 4.1 g/dL (3.5-5.2) 08/26/22 13:47 Globulin 3.3 g/dL (1.3-4.6) 08/26/22 13:47 Lipase 11 U/L (13-60) L 08/26/22 13:47 Urine Color Yellow (Yellow) 08/26/22 15:16 Urine Appearance Clear (CLEAR) 08/26/22 15:16 Urine pH 7 (5-7) 08/26/22 15:16 Ur Specific Sterling 1.010 (1.005-1.030) 08/26/22 15:16 Urine Protein Trace (Negative) 08/26/22 15:16 Urine Glucose (UA) Trace (Normal) H 08/26/22 15:16 Urine Ketones 2+ (Negative) H 08/26/22 15:16 Urine Blood 2+ (Negative) H 08/26/22 15:16 Urine Nitrate Negative (Negative) 08/26/22 15:16 Urine Bilirubin Neg (Negative) 08/26/22 15:16 Urine Urobilinogen Neg mg/dL (Negative) 08/26/22 15:16 Ur Leukocyte Esterase Negative (Negative) 08/26/22 15:16 Urine RBC None /hpf (0-2) 08/26/22 15:16 Urine WBC None /hpf (0-5) 08/26/22 15:16 Ur Squamous Epith Cells 0-4 /hpf (0-5) H 08/26/22 15:16 Amorphous Sediment Not Reportable 08/26/22 15:16 Urine Bacteria None /hpf (NONE) 08/26/22 15:16 SARS-CoV-2 Ag (Rapid) negative (Negative) 08/26/22 20:08 Discharge Plan Discharge Patient Disposition: Xfer Short-Term Hosp Clinical Impression: Diverticulitis of intestine with perforation and abscess, Pelvic mass Condition: Stable Referrals: Fela Cooper PA [Primary Care Provider] - Sign Out Sign Out Data: Patient Sign Out occurred on 08/26/22 at 19:08. Patient's care was discussed, and care was transferred from to Efe Dominguez MD. Coding Level of Care Code ED Program Services Planner for Chg Fwd Documented by User: Efe Dominguez MD 08/31/22 08:08 HPI - Abdominal Pain General: Chief Complaint: Abdominal Pain Stated Complaint: SOB Time Seen by Provider: 08/26/22 12:43 PFSH ED PFSH: Medical History (Updated 09/08/22 @ 06:19 by Alexi Aranda DO) Diverticulitis Social History (Updated 09/08/22 @ 06:14 by Alexi Aranda DO) Smoking and tobacco status: never smoked Alcohol intake: never Course Vital Signs: Vital signs: Vital Signs Temperature 98.6 F 08/27/22 08:14 Pulse Rate 80 08/27/22 09:58 Respiratory Rate 18 08/27/22 09:58 Blood Pressure 97/55 08/27/22 09:58 Pulse Oximetry 98 08/27/22 09:58 Oxygen Delivery Me thod 08/27/22 08:00 MDM - Abdominal Pain Medical Decision Making Patient care handoff received from Dr. Aranda pending completion of evaluation and accepting outside facility. I personally saw and evaluated the patient, reperformed taylor portions of E/M, and kept her up-to-date with plan of care. Medications ordered for symptom treatment. Antibiotics continued as well as maintenance fluids initiated. For borderline blood pressure fluid bolus ord ered. Patient evidence of diverticulitis with perforation and likely abscess formation, case is complicated by new mass likely a gynecologic malignancy. CT does raise evidence of adhesions and per Dr. Aranda our general surgery service recommended transfer for gynecologic oncology services if the patient required operative intervention. Challenging situation as the patient requires subspecialty services and that availability is limited requiring call to multiple facilities for accepting. I did find accepting physician within the [facility] system in [place]. Patient excepted by Dr. Whitfield, I also discussed case with [employer] Manager onc who is willing to consult. The results of ED evaluation were discussed with the patient including plan for transfer due to requirement for level of care not available if discharged to prevent significant worsening/deterioration. Patient agreeable with plan. Patient care discussed with Dr. Vasquez pending transport to higher level care. Efe Dominguez MD Emergency Medicine Lab Data 08/26/22 13:47 08/26/22 13:47 Labs/Radiology: Radiology Impressions Chest X-Ray 08/26/22 12:45 IMPRESSION: No acute findings. Abdomen/Pelvis CT 08/26/22 13:06 IMPRESSION: 1. New heterogeneously enhancing masslike HOSPITAL PLAN ADMINISTRATOR lesion along the RIGHT posterior uterus suspicious for HOSPITAL PLAN ADMINISTRATOR neoplasm such as leiomyosarcoma or ovarian carcinoma. This is new since 2021. Adjacent tubal ligation clips. 2. Multiple new low-attenuation lesions in the liver suspicious for metastatic disease considering HOSPITAL PLAN ADMINISTRATOR findings. Microabscesses less likely. 3. Evidence of acute diverticulitis with small microperforation and small fluid collection measuring 1.6 x 1.7 CM. 4. A few low-attenuation enlarged lymph nodes in the LEFT greater than RIGHT iliac chains and pelvis suspicious for metastatic disease versus less likely reactive lymph nodes. 5. Evidence of adhesions with tethering of the sigmoid colon and ileum in the pelvis. 6. Slight patchy infiltrates or atelectasis LEFT lower lobe. Bronchovascular thickening LEFT lower lobe. Notified Alexi Aranda DO at 08/26/2022 2:47 PM. Laboratory Results WBC 14.7 10^3/uL (4.0-10.0) H 08/26/22 13:47 RBC 4.57 10^6/uL (4.1-5.3) 08/26/22 13:47 Hgb 13.2 g/dL (11.5-15.3) 08/26/22 13:47 Hct 40.7 % (37.0-47.0) 08/26/22 13:47 MCV 89.1 fl (81-99) 08/26/22 13:47 MCH 28.9 pg (28.0-34.0) 08/26/22 13:47 MCHC 32.4 g/dL (30.0-36.0) 08/26/22 13:47 RDW 12.4 % (12.1-15.1) 08/26/22 13:47 Plt Count 337 10^3/cmm (130-400) 08/26/22 13:47 MPV 10.2 fL (7.4-10.4) 08/26/22 13:47 Neut % (Auto) 74.5 % 08/26/22 13:47 Lymph % (Auto) 17.5 % 08/26/22 13:47 Nash % (Auto) 6.2 % 08/26/22 13:47 Eos % (Auto) 1.2 % 08/26/22 13:47 Baso % (Auto) 0.3 % 08/26/22 13:47 Neut # (Auto) 10.97 10^3/uL (1.8-7.7) H 08/26/22 13:47 Lymph # (Auto) 2.6 10^3/uL (0.8-4.8) 08/26/22 13:47 Nash # (Auto) 0.9 10^3/uL (0.2-0.9) 08/26/22 13:47 Eos # (Auto) 0.2 10^3/uL (0.0-0.8) 08/26/22 13:47 Baso # (Auto) 0.1 10^3/uL (0.0-0.1) 08/26/22 13:47 Nucleated RBC % (auto) 0 % 08/26/22 13:47 Nucleated RBCs # 0.0 /100WBC 08/26/22 13:47 Sodium 137 mmol/L (136-145) 08/26/22 13:47 Potassium 3.9 mmol/L (3.5-5.1) 08/26/22 13:47 Chloride 100 mmol/L (98-107) 08/26/22 13:47 Carbon Dioxide 20 mmol/L (22-29) L 08/26/22 13:47 Anion Gap 20.9 (5-19) H 08/26/22 13:47 BUN 7 mg/dL (6-20) 08/26/22 13:47 Creatinine 0.5 mg/dL (0.5-0.9) 08/26/22 13:47 GFR Calculation 130.6 mL/min (90-130) H 08/26/22 13:47 Glucose 85 mg/dL (65-115) 08/26/22 13:47 Calculated Osmolality 281 mOsm/kg (285-295) L 08/26/22 13:47 Lactic Acid 1.0 mmol/L (0.5-2.2) 08/26/22 13:47 Calcium 9.2 mg/dL (8.5-10.5) 08/26/22 13:47 Total Bilirubin 0.4 mg/dL (0.15-1.2) 08/26/22 13:47 AST 10 U/L (0-32) 08/26/22 13:47 ALT 8 U/L (0-33) 08/26/22 13:47 Alkaline Phosphatase 90 U/L (35-105) 08/26/22 13:47 Total Protein 7.4 g/dL (6.6-8.7) 08/26/22 13:47 Albumin 4.1 g/dL (3.5-5.2) 08/26/22 13:47 Globulin 3.3 g/dL (1.3-4.6) 08/26/22 13:47 Lipase 11 U/L (13-60) L 08/26/22 13:47 Urine Color Yellow (Yellow) 08/26/22 15:16 Urine Appearance Clear (CLEAR) 08/26/22 15:16 Urine pH 7 (5-7) 08/26/22 15:16 Ur Specific Sterling 1.010 (1.005-1.030) 08/26/22 15:16 Urine Protein Trace (Negative) 08/26/22 15:16 Urine Glucose (UA) Trace (Normal) H 08/26/22 15:16 Urine Ketones 2+ (Negative) H 08/26/22 15:16 Urine Blood 2+ (Negative) H 08/26/22 15:16 Urine Nitrate Negative (Negative) 08/26/22 15:16 Urine Bilirubin Neg (Negative) 08/26/22 15:16 Urine Urobilinogen Neg mg/dL (Negative) 08/26/22 15:16 Ur Leukocyte Esterase Negative (Negative) 08/26/22 15:16 Urine RBC None /hpf (0-2) 08/26/22 15:16 Urine WBC None /hpf (0-5) 08/26/22 15:16 Ur Squamous Epith Cells 0-4 /hpf (0-5) H 08/26/22 15:16 Amorphous Sediment Not Reportable 08/26/22 15:16 Urine Bacteria None /hpf (NONE) 08/26/22 15:16 SARS-CoV-2 Ag (Rapid) negative (Negative) 08/26/22 20:08 Discharge Plan Discharge Patient Disposition: Xfer Short-Term Hosp Clinical Impression: Diverticulitis of intestine with perforation and abscess, Pelvic mass Condition: Stable Referrals: Fela Cooper PA [Primary Care Provider] - Sign Out Sign Out Data: Patient Sign Out occurred on 08/26/22 at 19:08. Patient's care was discussed, and care was transferred from to Efe Dominguez MD. Coding Level of Care Code ED Program Services Planner for Alison Groves
--- NOTE | 2022-08-26 13:06 | CT_ITS ---
WS: [id number] CT ABDOMEN PELVIS TECHNIQUE: Contrast-enhanced CT of the abdomen and pelvis with coronal and sagittal reformatted image s. CLINICAL INFORMATION: abd pain COMPARISON: Comparison CT May 25, 2022, January 13, 2021, and June 29, 2017 DLP: 793.[address] scans at [facility] use at least one of these dose optimization techniques: automated e xposure control; mA and/or kV adjustment per patient size (includes targeted exams where dose is matc hed to clinical indication); or iterative reconstruction. FINDINGS: Numerous new low-attenuation lesions in the liver the largest in the annette hepatis measuring 1.8 cm. Lesions appear new from the prior examinations. Slight patchy infiltrates or atelectasis LEFT lower l obe. Bronchovascular thickening LEFT lower lobe. Normal spleen. Normal pancreatic parenchymal enhance ment. Adrenal glands are normal. No hydronephrosis. Normal renal parenchymal enhancement. LEFT renal cyst measuring 2.8 cm. Normal caliber abdominal aorta. Diffuse inflammatory stranding and enhancement involving the sigmoid colon with microperforation compatible with diverticulitis. Small fluid collection along the mid sigm oid colon measuring 1.6 x 1.7 CM. Induration in the pelvis. Low-lying cecum abutting the uterus and s igmoid colon. There is a new CERTIFIED MEDICAL CODING SPECIALIST heterogeneously enhancing mass along the RIGHT posterior aspect of the uterus sultana uring 4.6 x 4.3 CM. This is adjacent to the tubal ligation clips and suspicious for polypoid leiomyos arcoma or ovarian carcinoma. Small amount of free fluid in the cul-de-sac. CERTIFIED MEDICAL CODING SPECIALIST lesion is new since 2021. Appendix is not visualized today. A few low-attenuation enlarged lymph nodes in the LEFT greater than RIGHT iliac chains and pelvis mitch picious for metastatic disease versus less likely reactive lymph nodes. CT/CT abdomen pelvis w con* [id number] IMPRESSION: 1. New heterogeneously enhancing masslike CERTIFIED MEDICAL CODING SPECIALIST lesion along the RIGHT posterior uterus suspicious for CERTIFIED MEDICAL CODING SPECIALIST neoplasm such as leiomyosarcoma or ovarian carcinoma . This is new since 2021. Adjacent tubal ligation clips. 2. Multiple new low-attenuation lesions in the liver suspicious for metastatic disease considering CERTIFIED MEDICAL CODING SPECIALIST findings. Microabscesses less likely. 3. Evidence of acute diverticulitis with small microperforation and small flui d collection measuring 1.6 x 1.7 CM. 4. A few low-attenuation enlarged lymph nodes in the LEFT greater than RIGHT i liac chains and pelvis suspicious for metastatic disease versus less likely torito ctive lymph nodes. 5. Evidence of adhesions with tethering of the sigmoid colon and ileum in the pelvis. 6. Slight patchy infiltrates or atelectasis LEFT lower lobe. Bronchovascular t hickening LEFT lower lobe. Notified Alexi Aranda DO at 08/26/2022 2:47 PM.
--- NOTE | 2022-08-26 13:25 | PC.NURSE ---
patient refused orourke ctheter at this time. patient states that she is in too much pain for a catheter at this time and would like to wait until she gets her CT results back. notified
[2022-08-26] MEDS: ondansetron 2 mg/ML SDV 2 mL 4 MG IVP ×2 (13:36→23:19)
[2022-08-26] MEDS: iohexol 350 mg/mL 500 mL Btl (per mL) IV (13:56)
[2022-08-26 14:09] LABS: Basophils # 0.1 10^3/uL (0.0-0.1); Basophils % 0.3 %; Eosinophils # 0.2 10^3/uL (0.0-0.8); Eosinophils % 1.2 %; Hematocrit 40.7 % (37.0-47.0); Hemoglobin 13.2 g/dL (11.5-15.3); Lymphocytes # 2.6 10^3/uL (0.8-4.8); Lymphocytes % 17.5 %; Mean Corpuscular HGB Conc 32.4 g/dL (30.0-36.0); Mean Corpuscular Hemoglobin 28.9 pg (28.0-34.0); Mean Corpuscular Volume 89.1 fl (81-99); Mean Platelet Volume 10.2 fL (7.4-10.4); Monocytes # 0.9 10^3/uL (0.2-0.9); Monocytes % 6.2 %; Neutrophils # 10.97 10^3/uL (1.8-7.7); Neutrophils % 74.5 %; Nucleated Red Blood Cells % 0 %; Platelet Count 337 10^3/cmm (130-400); Red Blood Count 4.57 10^6/uL (4.1-5.3); Red Cell Distribution Width 12.4 % (12.1-15.1); White Blood Count 14.7 10^3/uL (4.0-10.0)
[2022-08-26 14:16] LABS: Alanine Aminotransferase 8 U/L (0-33); Albumin Level 4.1 g/dL (3.5-5.2); Alkaline Phosphatase 90 U/L (35-105); Anion Gap 20.9 (5-19); Aspartate Amino Transferase 10 U/L (0-32); Blood Urea Nitrogen 7 mg/dL (6-20); Calcium 9.2 mg/dL (8.5-10.5); Carbon Dioxide 20 mmol/L (22-29); Chloride 100 mmol/L (98-107); Globulin 3.3 g/dL (1.3-4.6); Glomerular Filtration Rate 130.6 mL/min (90-130); Glucose 85 mg/dL (65-115); Lipase 11 U/L (13-60); Osmolality Calculated 281 mOsm/kg (285-295); Potassium 3.9 mmol/L (3.5-5.1); Sodium 137 mmol/L (136-145); Total Bilirubin 0.4 mg/dL (0.15-1.2); Total Protein 7.4 g/dL (6.6-8.7)
[2022-08-26] MEDS: morphine 4 mg/mL SDV 1 mL IVP ×4 (14:23→23:19)
[2022-08-26] MEDS: piperacillin-tazobactam 3.375 GM in sodium chloride 0.9% (plus) 50 ML IV ×2 (14:38→22:38)
[2022-08-26 16:03] LABS: Bilirubin Urine Neg (Negative); Blood Urine 2+ (Negative); Glucose Urine UA Trace (Normal); Ketones Urine 2+ (Negative); Leukocyte Esterase Urine Negative (Negative); Nitrate Urine Negative (Negative); Protein Urine Trace (Negative); Urine Appearance Clear (CLEAR); Urine Color Yellow (Yellow); Urobilinogen Urine Neg (Negative); pH Urine 7 (5-7)
[2022-08-26 16:05] LABS: Add Urine Culture? No; Add Urine Microscopic? YES; Squamous Epithelial Cell Urine 0-4 /hpf (0-5)
[2022-08-26] MEDS: diphenhydrAMINE 50 mg/mL SDV 1mL IVP (16:11)
--- NOTE | 2022-08-26 18:54 | PC.NURSE ---
updated patient and on searching for bed for transfer. family has no questions at this time. vital signs stable.
[2022-08-26] MEDS: sodium chloride 0.9% 1,000 ML 112 ML IV (19:54)
[2022-08-26 20:29] LABS: SARS Covid-2 Antigen negative (Negative)
[2022-08-26] MEDS: sodium chloride 0.9% 1,000 ML 999 ML IV (22:38)
[2022-08-27] VITALS (22 sets, daily range): BP systolic 89–110; BP diastolic 44–59; PULSE 63–80; RESP 15–98; TEMP 37; O2SAT 90–98
[2022-08-27] MEDS: morphine 4 mg/mL SDV 1 mL IVP ×3 (03:13→09:47)
[2022-08-27] MEDS: sodium chloride 0.9% 1,000 ML 112 ML IV (04:36)
[2022-08-27] MEDS: piperacillin-tazobactam 3.375 GM in sodium chloride 0.9% (plus) 50 ML IV (06:41)
[2022-08-27] MEDS: ondansetron 2 mg/ML SDV 2 mL 4 MG IVP (06:55)
== END 2022-08-27 09:58 | disposition short-term general hospital (02) ==
PROVIDERS: Family Medicine; Emergency Provider Emergency Medicine; PCP Physician Assistant
DX: R10.32 Left lower quadrant pain (principal); Z20.822 Contact with and (suspected) exposure to COVID-19
CPT/HCPCS: 71045; 74177; 80053; 81001; 83605; 83690; 85025; 87040; 87426; 96365; 96366; 96375; 96376; 99285; J1200; J2270; J2405; J2543; J7030; Q9967

== ENCOUNTER 2022-09-25 11:26 | Emergency (ER) | payer MEDICAID, SELFPAY ==
[2022-09-25] VITALS (9 sets, daily range): BP systolic 130–152; BP diastolic 86–89; PULSE 93–110; RESP 14–22; TEMP 36.6; O2SAT 92–98
--- NOTE | 2022-09-25 11:50 | CTR_ITS ---
PROCEDURE INFORMATION: Exam: CT Abdomen And Pelvis With Contrast Exam date and time: 09/25/2022 12:47 PM Age: 52 years old Clinical indication: Abdominal pain; Generalized; Prior surgery; Surgery date: 6+ months; Surgery type: Asiya; Stent; Colon; Patient HX: Pain - colon/liver cancer; Additional info: Increased pain-hx of colon CA TECHNIQUE: Imaging protocol: Computed tomography of the abdomen and pelvis with contrast. Radiation optimization: All CT scans at this facility use at least one of these dose optimization techniques: automated exposure control; mA and/or kV adjustment per patient size (includes targeted exams where dose is matched to clinical indication); or iterative reconstruction. Contrast material: OMNI 350; Contrast volume: 100 ml; Contrast route: INTRAVENOUS (IV); Other protocol: This patient has received 2 known CTs and 0 known cardiac nuclear medicine studies in the 12 months prior to the current study. COMPARISON: CT abdomen pelvis w con* [id number] 08/26/2022 1:53 PM RADIATION DOSE METRICS: Total DLP (mGy-cm): 697.19 FINDINGS: Lungs: There is marked bronchial wall thickening and extensive bronchial mucous plugging in the left lower lobe. This is stable since 08/26/2022. Diaphragm: There is a small sliding-type hiatal hernia. Liver: There are scattered hypodense liver masses in the right and left lobes measuring up to 2.2 cm in the central right lobe on series 2, image 20. The lesions are stable since 08/26/2022. Gallbladder and bile ducts: The gallbladder is absent. There is no intrahepatic or extrahepatic bile duct dilation. Pancreas: The pancreas is unremarkable. Spleen: The spleen is unremarkable. Adrenal glands: The adrenal glands are unremarkable. Kidneys and ureters: The right kidney and ureter are unremarkable. There are simple cysts in the left kidney. There is no hydronephrosis or ureteral dilation on the left. Stomach and bowel: There is circumferential wall thickening in the distal sigmoid colon consistent with a malignant neoplasm. The thickened region is traversed by a colonic stent. The stent is completely decompressed in its midportion see sagittal series 6, image 36 and coronal series 5, image 32. The more distal portion of the sigmoid and rectum are decompressed. Proximal to the stent there is diffuse fluid and stool distention of the colon to the level of the cecum which is progressive since 08/26/2022. The stomach is decompressed, preventing meaningful evaluation of wall thickness. The small bowel is nondilated. Appendix: The appendix is not visible. Intraperitoneal space: There is no free air or significant intraperitoneal free fluid. Vasculature: There is mild aortic atherosclerotic disease. The portal, splenic and superior mesenteric veins are patent. Lymph nodes: There is a prominent left common iliac lymph node measuring 10 x 10 mm. No lymphadenopathy is seen elsewhere in the retroperitoneum or pelvis. No mesenteric lymphadenopathy. Urinary bladder: The urinary bladder is unremarkable. Reproductive: Increased size of a pelvic mass abutting or arising from the posterior right aspect of the uterus measuring 9.0 x 7.8 cm currently compared with 4.9 x 4.3 cm on 08/26/2022. Bones/joints: Bones are unremarkable. Soft tissues: The abdominal wall is intact. CT/CT abdomen pelvis w con* [id number] IMPRESSION: 1. Distal colonic obstruction within the sigmoid stent. Sigmoid colonic wall thickening is similar to 08/26/2022. 2. Markedly increased size of a pelvic mass abutting or arising from the uterus since 08/26/2022. 3. Stable liver metastases. 4. Left lower lobe bronchial wall thickening and extensive mucous plugging, similar to 08/26/2022 suggesting chronic or recurrent bronchitis or aspiration. 5. Incidental findings above. COMMENTS: Consistent with the [employer]'s Incidental Findings Committee white paper (J Am Maci Radiol 2018): Any incidental renal lesion less than 1 cm or classified as too small to characterize, or any incidental cystic renal lesion characterized as simple-appearing, is likely benign. No follow-up imaging is recommended for these lesions per consensus recommendations based on imaging criteria.
--- NOTE | 2022-09-25 11:52 | ED_ITS ---
HPI - Abdominal Pain General: Chief Complaint: Abdominal Pain Stated Complaint: intestinal pain, SOB, Colon Cancer pt Time Seen by Provider: 09/25/22 11:38 Source: patient and family Mode of arrival: ambulatory Limitations: no limitations History of Present Illness: This patient presented to the emergency department from her home accompanied by her spouse ostensibly because she is out of pain medicine and is noted increased pain since she was discharged from the hospital. She was recently evaluated in this emergency department and transferred to [facility] in [place]. She was discovered to have significant colon cancer at that location and apparently had a colon stent placed. She is scheduled to see oncology at this facility this coming week. She is out of her prescribed opiate pain medicine and has had increasing pain over the last 24 hours. She denies any fevers or chills. She is able to drink fluids and eat some. She has not had any vomiting. Has had degrees volume and velocity of stool but again her intake of solid foods has been lessened. She states she is urinating normally. She denies any fevers or chills, history of abdominal surgeries other than cholecystectomy etc. MD elicited complaint: abdominal pain Context: recent surgery/procedure Associated Symptoms: Reports change in bowel habits and nausea; Denies chills, dysuria, fever(s), hematochezia, melena, syncope and vomiting Review of Systems Const: Reports: change in appetite; Denies: fever(s) or chills ENMT: Denies: odynophagia, nasal discharge or nasal congestion Card: Denies: chest pain, palpitations, syncope or pre-syncope Resp: Reports: non-productive cough; Denies: dyspnea, productive cough or wheezing GI: Reports: abdominal pain, nausea and change in bowel habits; Denies: vomiting, hematochezia or melena : Denies: flank pain, difficulty voiding or dysuria Musc: Denies: back pain, extremity pain or extremity swelling PFSH ED PFSH: Medical History Diverticulitis Social History Smoking and tobacco status: never smoked Alcohol intake: never Physical Exam Narrative: EXAM NARRATIVE: She makes good eye contact but is clearly uncomfortable. She answers questions appropriately in a goal-directed fashion. Const: COMMON NORMALS: average body habitus, patient oriented x3 and alert GENERAL APPEARANCE: cooperative HENMT: COMMON NORMALS: normocephalic, Normal nasal mucous membranes and turbinates present, moist oral mucous membranes and oropharynx normal HEAD & SCALP: normocephalic NOSE: Normal nasal mucous membranes and turbinates present Eye: COMMON NORMALS: Equal, round and reactive pupils present, conjunctivae normal and no scleral icterus CONJUNCTIVA: Yes conjunctivae normal PUPIL: Yes Equal, round and reactive pupils present Neck/C-Spine: COMMON NORMALS: full ROM, no lymphadenopathy and no JVD Chest: COMMONS NORMALS: normal inspection of the chest Resp: COMMON NORMALS: normal respiratory effort, No retractions, clear to auscultation bilaterally and percussion normal AUSCULTATION: clear to auscultation bilaterally PERCUSSION: percussion normal Cardio: COMMON NORMALS: no JVD, regular rate, regular rhythm, No murmurs p resent (Cardio) and Peripheral pulses 2+ throughout RATE: regular rate RHYTHM: regular rhythm PERIPHERAL PULSES: Peripheral pulses 2+ throughout GI: COMMON NORMALS: Soft to palpation PALPATION: Yes Soft to palpation, No Firmness to palpation present (GI), Yes Tenderness to palpation present (GI), No Guarding due to palpation present (GI), No Rigid due to palpation and No Hernia present : COMMON NORMALS: Yes no CVA tenderness BLADDER/KIDNEY EXAM: Yes no CVA tenderness EXTERNAL FEMALE EXAM: No Hernia present Back/Pelvis: COMMON NORMALS: no CVA tenderness, thoracic and lumbar spine normal to inspection and thoraco-lumbar ROM normal Extremity: COMMON NORMALS: normal to inspection, full ROM, capillary refill normal, no calf tenderness and no pedal edema Neuro: COMMON NORMALS: patient oriented x3, moves all extremities and no focal motor deficits SENSORIUM/ORIENTATION: Yes alert CRANIAL NERVES: Yes CN nor mal except as noted Skin: COMMON NORMALS: no rashes or lesions noted and turgor normal GENERAL SKIN EXAM: no rashes or lesions noted and turgor normal Course Reevaluation(s): Reevaluation #1: No change in current clinical condition. Still receiving symptomatic pain relief. We are awaiting final acceptance at [facility] in [place]. Time: 15:11 Consultations: Consultation #1: Discussed CT findings with [facility]. Their concern regarding increasing pelvic mass size as well as obstruction of the colonic stent. Consultation #2: Consulted with [facility] Dr. Moreno who is on-call at that facility. They will make arrangements and plan on excepting her back in transfer. Time: 14:03 Consultation #3: Discussed with resident [facility] who accepted her in transfer with Dr. Onofre Fisher is accepting attending. Time: 15:42 Vital Signs: Vital signs: Vital Signs Temperature 97.9 F 09/25/22 11:37 Pulse Rate 93 09/25/22 15:13 Respiratory Rate 14 09/25/22 15:13 Blood Pressure 134/86 09/25/22 15:13 Pulse Oximetry 95 09/25/22 15:13 Oxygen Delivery Me thod 09/25/22 15:13 MDM - Abdominal Pain Medical Decision Making This unfortunately returned to our emergency department ostensibly because she was having increased pain and thought it might be due to her being out of her pain medicine for 12 hours. She did admit to increased distention decreased bowel movement velocity and volume and some nausea. She denied fevers. Her clinical examination revealed a patient was clearly in some distress with an abdomen which had generalized tenderness and distention. Additional work-up was engaged to ensure that there was no acute intra-abdominal process contributing to her her presentation. Ultimately was found that she had evidence of colonic stent obstruction with proximal colon obstruction. Also had a marked increase in her colonic mass size. He was otherwise not unstable and no other concerning findings. For continuity of care in addition to necessity of colorectal surgery which is not available at this facility [facility] who had previously taking care of her was consulted and they agreed to accept her in transfer. She is being transferred in stable condition all EMTALA paperwork was completed. Medical Records I reviewed the patient's medical records. Prior emergency department evaluation and transfer to facility in [place] for complex mass in the lower abdomen. Lab Data I reviewed the patient's lab results. 09/25/22 12:23 09/25/22 12:23 Labs/Radiology: Radiology Impressions Abdomen/Pelvis CT 09/25/22 11:50 IMPRESSION: 1. Distal colonic obstruction within the sigmoid stent. Sigmoid colonic wall thickening is similar to 08/26/2022. 2. Markedly increased size of a pelvic mass abutting or arising from the uterus since 08/26/2022. 3. Stable liver metastases. 4. Left lower lobe bronchial wall thickening and extensive mucous plugging, similar to 08/26/2022 suggesting chronic or recurrent bronchitis or aspiration. 5. Incidental findings above. COMMENTS: Consistent with the [employer]'s Incidental Findings Committee white paper (J Am Maci Radiol 2018): Any incidental renal lesion less than 1 cm or classified as too small to characterize, or any incidental cystic renal lesion characterized as simple-appearing, is likely benign. No follow-up imaging is recommended for these lesions per consensus recommendations based on imaging criteria. ADDENDUM: 09/25/22 1257 THIS REPORT CONTAINS FINDINGS THAT MAY BE CRITICAL TO PATIENT CARE. The findings were verbally communicated via telephone conference with ROSENDO BAKER at 1:12 PM [employer] on 09/25/2022. The findings were acknowledged and understood. Laboratory Results WBC 11.4 10^3/uL (4.0-10.0) H 09/25/22 12: RBC 4.35 10^6/uL (4.1-5.3) 09/25/22 12: Hgb 12.0 g/dL (11.5-15.3) 09/25/22 12:23 Hct 38.1 % (37.0-47.0) 09/25/22 12: MCV 87.6 fl (81-99) 09/25/22 12: MCH 27.6 pg (28.0-34.0) L 09/25/22 12: MCHC 31.5 g/dL (30.0-36.0) 09/25/22 12: RDW 14.3 % (12.1-15.1) 09/25/22 12:23 Plt Count 441 10^3/cmm (130-400) H 09/25/22 12: MPV 9.1 fL (7.4-10.4) 09/25/22 12: Neut % (Auto) 75.8 % 09/25/22 12: Lymph % (Auto) 10.9 % 09/25/22 12: [place] % (Auto) 9.9 % 09/25/22 12: Eos % (Auto) 2.1 % 09/25/22 12:23 Baso % (Auto) 0.3 % 09/25/22 12:23 Neut # (Auto) 8.66 10^3/uL (1.8-7.7) H 09/25/22 12:23 Lymph # (Auto) 1.3 10^3/uL (0.8-4.8) 09/25/22 12:23 [place] # (Auto) 1.1 10^3/uL (0.2-0.9) H 09/25/22 12:23 Eos # (Auto) 0.2 10^3/uL (0.0-0.8) 09/25/22 12:23 Baso # (Auto) 0.0 10^3/uL (0.0-0.1) 09/25/22 12: Nucleated RBC % (auto) 0 % 09/25/22 12: Nucleated RBCs # 0.0 /100WBC 09/25/22 12:23 Sodium 138 mmol/L (136-145) 09/25/22 12: Potassium 3.9 mmol/L (3.5-5.1) 09/25/22 12: Chloride 101 mmol/L (98-107) 09/25/22 12: Carbon Dioxide 23 mmol/L (22-29) 09/25/22 12: Anion Gap 17.9 (5-19) 09/25/22 12:23 BUN 7 mg/dL (6-20) 09/25/22 12:23 Creatinine 0.4 mg/dL (0.5-0.9) L 09/25/22 12:23 GFR Calculation 169.0 mL/min (90-130) H 09/25/22 12:23 Glucose 100 mg/dL (65-115) 09/25/22 12:23 Calculated Osmolality 284 mOsm/kg (285-295) L 09/25/22 12:23 Calcium 9.0 mg/dL (8.5-10.5) 09/25/22 12:23 Total Bilirubin 0.2 mg/dL (0.15-1.2) 09/25/22 12:23 AST 21 U/L (0-32) 09/25/22 12:23 ALT 14 U/L (0-33) 09/25/22 12:23 Alkaline Phosphatase 79 U/L (35-105) 09/25/22 12:23 Total Protein 7.1 g/dL (6.6-8.7) 09/25/22 12:23 Albumin 3.6 g/dL (3.5-5.2) 09/25/22 12:23 Globulin 3.5 g/dL (1.3-4.6) 09/25/22 12:23 Discharge Plan Discharge Patient Disposition: Xfer Short-Term Hosp Clinical Impression: Colon cancer, Bowel obstruction Condition: Stable Referrals: Clarice Perez MD [Primary Care Provider] - Coding Level of Care Code ED Pmo Project Manager for Alison Groves
[2022-09-25 12:31] LABS: Basophils % 0.3 %; Eosinophils # 0.2 10^3/uL (0.0-0.8); Eosinophils % 2.1 %; Hematocrit 38.1 % (37.0-47.0); Lymphocytes # 1.3 10^3/uL (0.8-4.8); Lymphocytes % 10.9 %; Mean Corpuscular HGB Conc 31.5 g/dL (30.0-36.0); Mean Corpuscular Hemoglobin 27.6 pg (28.0-34.0); Mean Corpuscular Volume 87.6 fl (81-99); Mean Platelet Volume 9.1 fL (7.4-10.4); Monocytes # 1.1 10^3/uL (0.2-0.9); Monocytes % 9.9 %; Neutrophils # 8.66 10^3/uL (1.8-7.7); Neutrophils % 75.8 %; Nucleated Red Blood Cells % 0 %; Platelet Count 441 10^3/cmm (130-400); Red Blood Count 4.35 10^6/uL (4.1-5.3); Red Cell Distribution Width 14.3 % (12.1-15.1); White Blood Count 11.4 10^3/uL (4.0-10.0)
[2022-09-25] MEDS: HYDROmorphone 1 mg/mL INJ 1 mL IVP ×4 (12:31→19:06)
[2022-09-25] MEDS: ondansetron 2 mg/ML SDV 2 mL 4 MG IVP (12:32)
[2022-09-25 12:51] LABS: Alanine Aminotransferase 14 U/L (0-33); Albumin Level 3.6 g/dL (3.5-5.2); Alkaline Phosphatase 79 U/L (35-105); Anion Gap 17.9 (5-19); Aspartate Amino Transferase 21 U/L (0-32); Blood Urea Nitrogen 7 mg/dL (6-20); Carbon Dioxide 23 mmol/L (22-29); Chloride 101 mmol/L (98-107); Globulin 3.5 g/dL (1.3-4.6); Glucose 100 mg/dL (65-115); Osmolality Calculated 284 mOsm/kg (285-295); Potassium 3.9 mmol/L (3.5-5.1); Sodium 138 mmol/L (136-145); Total Bilirubin 0.2 mg/dL (0.15-1.2); Total Protein 7.1 g/dL (6.6-8.7)
[2022-09-25] MEDS: iohexol 350 mg/mL 500 mL Btl (per mL) IV (12:55)
[2022-09-25] MEDS: sodium chloride 0.9% 1,000 ML 999 ML IV (13:13)
[2022-09-25] MEDS: lactated ringers 1,000 ML 125 ML IV (17:19)
== END 2022-09-25 19:17 | disposition short-term general hospital (02) ==
PROVIDERS: Emergency Provider Emergency Medicine; PCP Family Medicine
DX: K56.609 Unspecified intestinal obstruction, unspecified as to partial versus complete obstruction (principal); C18.9 Malignant neoplasm of colon, unspecified
CPT/HCPCS: 74177; 80053; 85025; 96361; 96374; 96375; 96376; 99285; J1170; J2405; J7030; J7120; Q9967

== ENCOUNTER → 2022-10-20 14:44 | Outpatient (BNVA) | payer MEDICAID, SELFPAY | PROVIDERS: PCP Family Medicine; Visit Provider Thoracic Surgery (Cardiothoracic Vascular Surgery) | DX: T81.31XD Disruption of external operation (surgical) wound, not elsewhere classified, subsequent encounter (principal); Y83.8 Other surgical procedures as the cause of abnormal reaction of the patient, or of later complication, without mention of misadventure at the time of the procedure; L89.312 Pressure ulcer of right buttock, stage 2 | CPT/HCPCS: 11042; 97597; 99213; A6212 ×2 ==

== ENCOUNTER 2022-11-02 15:04 | Emergency (ER) | payer MEDICAID, SELFPAY ==
[2022-11-02 15:21] VITALS: BP 105/75; PULSE 107; RESP 16; TEMP 36.5; O2SAT 94
[2022-11-02 16:03] LABS: Basophils # 0.1 10^3/uL (0.0-0.1); Basophils % 0.7 %; Eosinophils # 0.4 10^3/uL (0.0-0.8); Eosinophils % 5.1 %; Hematocrit 39.5 % (37.0-47.0); Hemoglobin 11.7 g/dL (11.5-15.3); Lymphocytes # 2.7 10^3/uL (0.8-4.8); Lymphocytes % 39.6 %; Mean Corpuscular HGB Conc 29.6 g/dL (30.0-36.0); Mean Corpuscular Hemoglobin 25.8 pg (28.0-34.0); Mean Platelet Volume 10.7 fL (7.4-10.4); Monocytes # 0.6 10^3/uL (0.2-0.9); Monocytes % 8.2 %; Neutrophils # 3.13 10^3/uL (1.8-7.7); Neutrophils % 46.1 %; Nucleated Red Blood Cells % 0 %; Platelet Count 333 10^3/cmm (130-400); Red Blood Count 4.54 10^6/uL (4.1-5.3); Red Cell Distribution Width 16.2 % (12.1-15.1); White Blood Count 6.8 10^3/uL (4.0-10.0)
[2022-11-02 16:19] LABS: Alanine Aminotransferase 7 U/L (0-33); Albumin Level 3.4 g/dL (3.5-5.2); Alkaline Phosphatase 84 U/L (35-105); Anion Gap 25.2 (5-19); Aspartate Amino Transferase 21 U/L (0-32); Carbon Dioxide 21 mmol/L (22-29); Chloride 96 mmol/L (98-107); Globulin 4.2 g/dL (1.3-4.6); Glucose 105 mg/dL (65-115); Lipase 14 U/L (13-60); Potassium 4.2 mmol/L (3.5-5.1); Sodium 138 mmol/L (136-145); Total Bilirubin 0.2 mg/dL (0.15-1.2); Total Protein 7.6 g/dL (6.6-8.7)
[2022-11-02 16:40] LABS: Blood Urea Nitrogen 4 mg/dL (6-20); Calcium 9.3 mg/dL (8.5-10.5); Osmolality Calculated 283 mOsm/kg (285-295)
--- NOTE | 2022-11-02 17:18 | PC.PHAR ---
PTS STS PT TAKES IV ANTIBIOTICS HE IS UNSURE OF THE NAME OF THE ANTIBIOTIC- WOUND CARE NOTES FROM 10/27/22 SHOW PT WAS TAKING INVANZ IV ANTIBIOTICS- PTS OFFICE WAS CLOSED - CALLED [facility] [phone] THEY FILLED INVANZ 1000 MG OVER 30 MIN A ONE TIME DOSE
--- NOTE | 2022-11-02 17:27 | CTR_ITS ---
PROCEDURE INFORMATION: Exam: CT Abdomen And Pelvis With Contrast Exam date and time: 11/02/2022 5:40 PM Age: 52 years old Clinical indication: Abdominal pain; Generalized; Prior surgery; Surgery date: 6+ months; Surgery type: Stent placement unknown years ago TECHNIQUE: Imaging protocol: Computed tomography of the abdomen and pelvis with contrast. Radiation optimization: All CT scans at this facility use at least one of these dose optimization techniques: automated exposure control; mA and/or kV adjustment per patient size (includes targeted exams where dose is matched to clinical indication); or iterative reconstruction. Contrast material: OMNI 350; Contrast volume: 100 ml; Contrast route: INTRAVENOUS (IV); REPORTING DATA: Count of CT and Cardiac NM exams in prior 12 months: This patient has received 3 known CTs and 0 known cardiac nuclear medicine studies in the 12 months prior to the current study. COMPARISON: CT abdomen pelvis w con* [id number] 09/25/2022 12:47 PM RADIATION DOSE METRICS: Total DLP (mGy-cm): 430.82 FINDINGS: Lungs: Left lower lobe bronchial mucous plugging with wall thickening is unchanged. Liver: There are numerous hypodense lesions in the liver which appear progressive since the previous study. Index lesion right lobe measures 2 cm on series 3, image 7 previously measuring 1.2 cm. Index lesion inferior right hepatic lobe measures 2.5 cm on image 25 of series 3 previously measuring 1.5 cm. There appear to be numerous new lesions as well. Gallbladder and bile ducts: Cholecystectomy changes are stable. Pancreas: Normal. No ductal dilation. Spleen: Normal. No splenomegaly. Adrenal glands: Normal. No mass. Kidneys and ureters: Stable left renal cysts. Stomach and bowel: Thickened distal sigmoid colon consistent with history of neoplasm with stent again present. The stent again appears decompressed in the midportion. There has been an interval left lower quadrant colostomy. Apparent anastomosis between the distal colon in the colon just proximal to the ostomy. The colon has diffuse wall thickening. No evidence of bowel obstruction. Appendix: No evidence of appendicitis. Intraperitoneal space: Unremarkable. No free air. No significant fluid collection. Vasculature: Unremarkable. No abdominal aortic aneurysm. Lymph nodes: Lymph node in the pelvic mesentery measuring 8 mm series 3, image 60. Nodularity posterior to the uterus measuring 1.7 cm on image 63. Left common iliac node measuring 10 mm is similar. Urinary bladder: Unremarkable as visualized. Reproductive: Unremarkable as visualized. Bones/joints: Unremarkable. No acute fracture. Soft tissues: Minimal fluid density left pelvic sidewall for example image 64 measuring 1.8 cm maximum size may be a small seroma. Other findings: Large mass in the pelvis abutting the posterior uterus is no longer identified which may be related to treatment or surgery. CT/CT abdomen pelvis w con* [id number] IMPRESSION: 1. Numerous new and enlarging liver masses suspicious for progressive metastatic disease. Recommend attention on follow-up. 2. Wall thickening is seen throughout the colon suspicious for infectious/inflammatory colitis. There has been interval placement of a left lower quadrant ostomy with apparent anastomosis to the distal sigmoid/rectum. The sigmoid stent remains decompressed in its midportion. 3. Suspected resection of the bulky pelvic mass since previous. There are new small lymph nodes in the pelvic mesentery which are indeterminate and attention on follow-up is recommended.
--- NOTE | 2022-11-02 17:31 | W.ED.ABDPA2 ---
HPI - Abdominal Pain General: Chief Complaint: Abdominal Pain Stated Complaint: n/v/abd pain Time Seen by Provider: 11/02/22 16:51 Source: patient Limitations: no limitations History of Present Illness: This 52-year-old female with a history of metastatic colon cancer was sent to the ER for evaluation by his primary care provider. tells me that they had gone in for a routine visit this morning and after evaluating patient, primary care provider asked him to come to the ER to rule out any intra-abdominal infection. Patient has no fever but complains of diffuse abdominal pain with associated nausea and vomiting. Associated Symptoms: Reports nausea and vomiting Review of Systems General: Reports: 10 or more systems reviewed and unremarkable except in HPI and below GI: Reports: abdominal pain, nausea and vomiting PFSH ED PFSH: Medical History (Updated 11/02/22 @ 20:56 by Clement Mejia MD) Colon cancer metastasized to liver Diverticulitis Family History (Updated 10/21/22 @ 14:25 by Anabelle Guillen LPN) Other CAD (coronary artery disease) Cancer Hyperlipidemia Hypertension Lung disease Psychiatric illness Stroke Denies family history of Diabetes Clotting disorder Dementia Chronic kidney disease (CKD) Suicide Anesthesia complication Bleeding disorder Social History (Updated 10/21/22 @ 14:23 by Anabelle Guillen LPN) Smoking and tobacco status: former smoker Quit status (tobacco): has quit using tobacco Former quit date comment: smoked x 10 years Alcohol intake: never Physical Exam Const: COMMON NORMALS: patient oriented x3 and no limitations NUTRITIONAL APPEARANCE: thin and underweight OTHER: Appears weak. HENMT: COMMON NORMALS: normocephalic HEAD & SCALP: normocephalic Neck/C-Spine: COMMON NORMALS: full ROM and supple Chest: COMMONS NORMALS: normal inspection of the chest Resp: COMMON NORMALS: normal respiratory effort, No retractions, No use of accessory muscles and clear to auscultation bilaterally AUSCULTATION: clear to auscultation bilaterally Cardio: COMMON NORMALS: regular rate, regular rhythm and No murmurs present (Cardio) RATE: regular rate RHYTHM: regular rhythm GI: OTHER: Diffuse abdominal tenderness. Presence of well-healed midline surgical scar. Colostomy in the left lower quadrant, covered with a colostomy bag that is empty. Normal bowel sounds. : COMMON NORMALS: Yes no CVA tenderness BLADDER/KIDNEY EXAM: Yes no CVA tenderness Back/Pelvis: COMMON NORMALS: no CVA tenderness and no thoracic nor lumbar tenderness Extremity: GENERAL: Yes normal exam except as noted Neuro: COMMON NORMALS: patient oriented x3 and no focal motor deficits Psych: COMMON NORMALS: mental status grossly normal and cooperative Course Vital Signs: Vital signs: Vital Signs Temperature 97.7 F 11/02/22 15:21 Pulse Rate 94 11/02/22 18:58 Respiratory Rate 16 11/02/22 18:58 Blood Pressure 130/82 11/02/22 18:58 Pulse Oximetry 94 11/02/22 18:58 Oxygen Delivery Me thod 11/02/22 18:36 MDM - Abdominal Pain Medical Decision Making Medical decision making: History as above. Patient is afebrile, has normal vital signs and is clinically stable. Though she looks weak, hemoglobin is 11.7 with white count of 6.8 and no left shift. CMP is unremarkable with creatinine of 0.4 and BUN of 4. IV antibiotics administered. CT abdomen/pelvis shows numerous new and enlarging liver masses suspicious for progressive metastatic disease. There is wall thickening seen throughout the colon that is suspicious for infectious/inflammatory colitis. Patient is currently on IV ertapenem. At the time of reevaluation, patient was requesting that she wants to go home. She was advised to continue receiving the IV antibiotics and to follow-up with her primary care physician and oncologist. She is able to tolerate orally. She was encouraged to maintain adequate fluid intake and to return with any new or worsening symptoms. Patient and verbalized understanding. Lab Data 11/02/22 15:50 11/02/22 15:50 Labs/Radiology: Radiology Impressions Abdomen/Pelvis CT 11/02/22 17:27 IMPRESSION: 1. Numerous new and enlarging liver masses suspicious for progressive metastatic disease. Recommend attention on follow-up. 2. Wall thickening is seen throughout the colon suspicious for infectious/inflammatory colitis. There has been interval placement of a left lower quadrant ostomy with apparent anastomosis to the distal sigmoid/rectum. The sigmoid stent remains decompressed in its midportion. 3. Suspected resection of the bulky pelvic mass since previous. There are new small lymph nodes in the pelvic mesentery which are indeterminate and attention on follow-up is recommended. Laboratory Results WBC 6.8 10^3/uL (4.0-10.0) 11/02/22 15:50 RBC 4.54 10^6/uL (4.1-5.3) 11/02/22 15:50 Hgb 11.7 g/dL (11.5-15.3) 11/02/22 15:50 Hct 39.5 % (37.0-47.0) 11/02/22 15:50 MCV 87.0 fl (81-99) 11/02/22 15:50 MCH 25.8 pg (28.0-34.0) L 11/02/22 15:50 MCHC 29.6 g/dL (30.0-36.0) L 11/02/22 15:50 RDW 16.2 % (12.1-15.1) H 11/02/22 15:50 Plt Count 333 10^3/cmm (130-400) 11/02/22 15:50 MPV 10.7 fL (7.4-10.4) H 11/02/22 15:50 Neut % (Auto) 46.1 % 11/02/22 15:50 Lymph % (Auto) 39.6 % 11/02/22 15:50 [place] % (Auto) 8.2 % 11/02/22 15:50 Eos % (Auto) 5.1 % 11/02/22 15:50 Baso % (Auto) 0.7 % 11/02/22 15:50 Neut # (Auto) 3.13 10^3/uL (1.8-7.7) 11/02/22 15:50 Lymph # (Auto) 2.7 10^3/uL (0.8-4.8) 11/02/22 15:50 [place] # (Auto) 0.6 10^3/uL (0.2-0.9) 11/02/22 15:50 Eos # (Auto) 0.4 10^3/uL (0.0-0.8) 11/02/22 15:50 Baso # (Auto) 0.1 10^3/uL (0.0-0.1) 11/02/22 15:50 Nucleated RBC % (auto) 0 % 11/02/22 15:50 Nucleated RBCs # 0.0 /100WBC 11/02/22 15:50 Sodium 138 mmol/L (136-145) 11/02/22 15:50 Potassium 4.2 mmol/L (3.5-5.1) 11/02/22 15:50 Chloride 96 mmol/L (98-107) L 11/02/22 15:50 Carbon Dioxide 21 mmol/L (22-29) L 11/02/22 15:50 Anion Gap 25.2 (5-19) H 11/02/22 15:50 BUN 4 mg/dL (6-20) L 11/02/22 15:50 Creatinine 0.4 mg/dL (0.5-0.9) L 11/02/22 15:50 GFR Calculation 169.0 mL/min (90-130) H 11/02/22 15:50 Glucose 105 mg/dL (65-115) 11/02/22 15:50 Calculated Osmolality 283 mOsm/kg (285-295) L 11/02/22 15:50 Calcium 9.3 mg/dL (8.5-10.5) 11/02/22 15:50 Total Bilirubin 0.2 mg/dL (0.15-1.2) 11/02/22 15:50 AST 21 U/L (0-32) 11/02/22 15:50 ALT 7 U/L (0-33) 11/02/22 15:50 Alkaline Phosphatase 84 U/L (35-105) 11/02/22 15:50 Total Protein 7.6 g/dL (6.6-8.7) 11/02/22 15:50 Albumin 3.4 g/dL (3.5-5.2) L 11/02/22 15:50 Globulin 4.2 g/dL (1.3-4.6) 11/02/22 15:50 Lipase 14 U/L (13-60) 11/02/22 15:50 Urine Color Yellow (Yellow) 11/02/22 19:25 Urine Appearance Hazy (CLEAR) A 11/02/22 19:25 Urine pH 6 (5-7) 11/02/22 19:25 Ur Specific [place] 1.015 (1.005-1.030) 11/02/22 19:25 Urine Protein Trace (Negative) 11/02/22 19:25 Urine Glucose (UA) Norm (Normal) 11/02/22 19:25 Urine Ketones 3+ (Negative) H 11/02/22 19:25 Urine Blood Neg (Negative) 11/02/22 19:25 Urine Nitrate Negative (Negative) 11/02/22 19:25 Urine Bilirubin Neg (Negative) 11/02/22 19:25 Urine Urobilinogen Neg mg/dL (Negative) 11/02/22 19:25 Ur Leukocyte Esterase Trace (Negative) H 11/02/22 19:25 Urine RBC None /hpf (0-2) 11/02/22 19:25 Urine WBC 0-4 /hpf (0-5) H 11/02/22 19:25 Ur Squamous Epith Cells 0-4 /hpf (0-5) H 11/02/22 19:25 Amorphous Sediment Not Reportable 11/02/22 19:25 Urine Bacteria None /hpf (NONE) 11/02/22 19:25 Discharge Plan Discharge Patient Disposition: Home Clinical Impression: Colon cancer metastasized to liver Condition: Stable Prescriptions: No Action morphine 30 mg tablet extended release 30 mg PO Q12H 30 Days Qty: 60 0RF oxycodone-acetaminophen 10-325 mg Tablet 1 tab PO Q6H PRN (Reason: Pain) pantoprazole 40 mg Tablet,Delayed Release (Dr/Ec) 40 mg PO DAILY ondansetron 4 mg Tablet,Disintegrating 4 mg PO Q6H PRN (Reason: Nausea) naloxone 4 mg/actuation [place],Non-Aerosol 4 mg INTRANASAL Q2M PRN (Reason: Opiate Reversal) Rx Instructions: spray 1 dose into ONE nostril; alternate nostrils w each dose until help arrives Unknown Iv Antibiotic See Rx Instructions .ROUTE .COMPLEX Rx Instructions: DIRECTED Discharge Orders: Discharge ED (Routine); Ordered 11/02/22 Ordered By: Clement Mejia Referrals: Clarice Perez MD [Primary Care Provider] - Discharge Diet: Usual diet Discharge Activity: Resume usual activity Patient Instructions: Opioid Safety, Pain Management Activity Restrictions/Additional Instructions: Continue your usual home medications including the current IV antibiotics. Maintain adequate fluid intake. Follow-up with your primary care physician and your oncologist as already scheduled. Return with new or worsening symptoms. Coding Level of Care Code ED Circular Knife Cutter Machine for Alison Groves
[2022-11-02] MEDS: iohexol 350 mg/mL 500 mL Btl (per mL) IV (17:55)
[2022-11-02] MEDS: sodium chloride 0.9% 1,000 ML 999 ML IV (18:02)
[2022-11-02 18:07] VITALS: BP 119/71; PULSE 104; RESP 16; O2SAT 96
[2022-11-02 18:36] VITALS: BP 122/74; PULSE 87; O2SAT 93
[2022-11-02 18:58] VITALS: BP 130/82; PULSE 94; RESP 16; O2SAT 94
[2022-11-02 19:48] LABS: Add Urine Microscopic? YES; Bilirubin Urine Neg (Negative); Blood Urine Neg (Negative); Glucose Urine UA Norm (Normal); Ketones Urine 3+ (Negative); Leukocyte Esterase Urine Trace (Negative); Nitrate Urine Negative (Negative); Protein Urine Trace (Negative); Specific Gravity, Urine 1.015 (1.005-1.030); Urine Appearance Hazy (CLEAR); Urine Color Yellow (Yellow); Urobilinogen Urine Neg (Negative); pH Urine 6 (5-7)
[2022-11-02 19:49] LABS: Add Urine Culture? No; Squamous Epithelial Cell Urine 0-4 /hpf (0-5); WBC Urine 0-4 /hpf (0-5)
[2022-11-02] MEDS: metroNIDAZOLE 500 MG Tablet PO (20:46)
[2022-11-02] MEDS: metoclopramide 5 mg/mL SDV 2 mL 10 MG IVP (20:46)
[2022-11-02] MEDS: ciprofloxacin 500 mg Tablet PO (20:46)
[2022-11-02 21:00] VITALS: BP 122/92; PULSE 96; RESP 16; O2SAT 96
== END 2022-11-02 21:24 | disposition home or self-care (01) ==
PROVIDERS: Physician Assistant; Emergency Provider Family Medicine; PCP Family Medicine
DX: C18.9 Malignant neoplasm of colon, unspecified (principal); C78.7 Secondary malignant neoplasm of liver and intrahepatic bile duct; Z87.891 Personal history of nicotine dependence
CPT/HCPCS: 36592; 74177; 80053; 81001; 82378; 83690; 85025; 96374; 99285; J2765; J7030; Q9967

== ENCOUNTER 2022-11-05 04:38 | Emergency (ER) | payer MEDICAID, SELFPAY ==
[2022-11-05 04:49] VITALS: BP 115/85; PULSE 111; RESP 18; TEMP 36.1; O2SAT 98; BMI 25.7
--- NOTE | 2022-11-05 05:17 | ED_ITS ---
HPI - Abdominal Pain General: Chief Complaint: Abdominal Pain Stated Complaint: ABD Pain\Kidney Pain Time Seen by Provider: 11/05/22 04:51 Source: patient Mode of arrival: ambulatory Limitations: no limitations History of Present Illness: 52-year-old female with a history of colon cancer with mets, liver mets she has had a colectomy has a colostomy she states that she did not take her pain meds yesterday she has been having increasing abdominal pain today diffuse in nature rates an 8 out of 10 no vomiting no fevers she denies any worsening improving factors. Associated Symptoms: Denies chills, dysuria and fever(s) Review of Systems Const: Denies: fever(s), chills, body aches or change in appetite Eyes: Denies: blurry vision or eye discomfort ENMT: Denies: throat pain or dental pain Card: Denies: chest pain Resp: Denies: dyspnea GI: Reports: abdominal pain : Denies: dysuria Musc: Denies: neck pain or back pain Skin/Breast: Denies: rash Neuro: Denies: headache(s) Psych: Denies: depression Brian/Lymph: Denies: easy bruising All/Imm: Denies: urticaria PFSH ED PFSH: Medical History Colon cancer metastasized to liver Diverticulitis Family History Other CAD (coronary artery disease) Cancer Hyperlipidemia Hypertension Lung disease Psychiatric illness Stroke Denies family history of Diabetes Clotting disorder Dementia Chronic kidney disease (CKD) Suicide Anesthesia complication Bleeding disorder Social History (Updated 10/21/22 @ 14:23 by Anabelle Guillen LPN) Smoking and tobacco status: former smoker Quit status (tobacco): has quit using tobacco Former quit date comment: smoked x 10 years Alcohol intake: never Physical Exam Const: COMMON NORMALS: no acute distress, patient oriented x3 and healthy appearing HENMT: COMMON NORMALS: normocephalic and atraumatic HEAD & SCALP: normoc ephalic and atraumatic Eye: COMMON NORMALS: Equal, round and reactive pupils present and EOMs intact bilaterally PUPIL: Yes Equal, round and reactive pupils present Neck/C-Spine: COMMON NORMALS: full ROM and supple Chest: COMMONS NORMALS: normal inspection of the chest and normal palpation of entire chest wall Resp: COMMON NORMALS: normal respiratory effort, No retractions, No use of accessory muscles and clear to auscultation bilaterally AUSCULTATION: clear to auscultation bilaterally Cardio: COMMON NORMALS: regular rate, regular rhythm and No murmurs present (Cardio) RATE: regular rate RHYTHM: regular rhythm GI: COMMON NORMALS: Normal to inspection, nondistended, normoactive bowel sounds present, Soft to palpation, non-tender and no masses PALPATION: Yes Soft to palpation Extremity: COMMON NORMALS: normal to inspection and full ROM Neuro: COMMON NORMALS: patient oriented x3, moves all extremities and no focal motor deficits Psych: COMMON NORMALS: mental status grossly normal, Normal thought process present and cooperative THOUGHT PROCESS: Normal thought process present Skin: COMMON NORMALS: no rashes or lesions noted and no wounds GENERAL SKIN EXAM: no rashes or lesions noted Course Vital Signs: Vital signs: Vital Signs Temperature 97 F L 11/05/22 04:49 Pulse Rate 111 H 11/05/22 04:49 Respiratory Rate 16 11/05/22 05:21 Blood Pressure 115/85 11/05/22 04:49 Pulse Oximetry 98 11/05/22 04:49 MDM - Abdominal Pain Medical Decision Making Patient presents with abdominal pain likely from her cancer she had a recent CT showed no acute findings blood work here is normal she is likely in pain due to missing her pain meds she is stable for discharge she is take her meds as prescribed return if worsening. Lab Data 11/05/22 05:25 11/05/22 05:25 Labs/Radiology: Laboratory Results WBC 11.4 10^3/uL (4.0-10.0) H 11/05/22 05:25 RBC 4.66 10^6/uL (4.1-5.3) 11/05/22 05:25 Hgb 12.1 g/dL (11.5-15.3) 11/05/22 05:25 Hct 39.3 % (37.0-47.0) 11/05/22 05:25 MCV 84.3 fl (81-99) 11/05/22 05:25 MCH 26.0 pg (28.0-34.0) L 11/05/22 05:25 MCHC 30.8 g/dL (30.0-36.0) 11/05/22 05:25 RDW 16.8 % (12.1-15.1) H 11/05/22 05:25 Plt Count 394 10^3/cmm (130-400) 11/05/22 05:25 MPV 11.0 fL (7.4-10.4) H 11/05/22 05:25 Neut % (Auto) 63.9 % 11/05/22 05:25 Lymph % (Auto) 26.5 % 11/05/22 05:25 [place] % (Auto) 7.5 % 11/05/22 05:25 Eos % (Auto) 1.4 % 11/05/22 05:25 Baso % (Auto) 0.4 % 11/05/22 05:25 Neut # (Auto) 7.30 10^3/uL (1.8-7.7) 11/05/22 05:25 Lymph # (Auto) 3.0 10^3/uL (0.8-4.8) 11/05/22 05:25 [place] # (Auto) 0.9 10^3/uL (0.2-0.9) 11/05/22 05:25 Eos # (Auto) 0.2 10^3/uL (0.0-0.8) 11/05/22 05:25 Baso # (Auto) 0.1 10^3/uL (0.0-0.1) 11/05/22 05:25 Nucleated RBC % (auto) 0 % 11/05/22 05:25 Nucleated RBCs # 0.0 /100WBC 11/05/22 05:25 Sodium 145 mmol/L (136-145) 11/05/22 05:25 Potassium 3.8 mmol/L (3.5-5.1) 11/05/22 05:25 Chloride 102 mmol/L (98-107) 11/05/22 05:25 Carbon Dioxide 26 mmol/L (22-29) 11/05/22 05:25 Anion Gap 20.8 (5-19) H 11/05/22 05:25 BUN 5 mg/dL (6-20) L 11/05/22 05:25 Creatinine 0.6 mg/dL (0.5-0.9) 11/05/22 05:25 GFR Calculation 105.8 mL/min (90-130) 11/05/22 05:25 Glucose 115 mg/dL (65-115) 11/05/22 05:25 Calculated Osmolality 298 mOsm/kg (285-295) H 11/05/22 05:25 Calcium 9.9 mg/dL (8.5-10.5) 11/05/22 05:25 Total Bilirubin 0.4 mg/dL (0.15-1.2) 11/05/22 05:25 AST 15 U/L (0-32) 11/05/22 05:25 ALT < 5 U/L (0-33) 11/05/22 05:25 Alkaline Phosphatase 84 U/L (35-105) 11/05/22 05:25 Total Protein 7.7 g/dL (6.6-8.7) 11/05/22 05:25 Albumin 3.6 g/dL (3.5-5.2) 11/05/22 05:25 Globulin 4.1 g/dL (1.3-4.6) 11/05/22 05:25 Lipase 30 U/L (13-60) 11/05/22 05:25 Urine Color Yellow (Yellow) 11/05/22 05:17 Urine Appearance Clear (CLEAR) 11/05/22 05:17 Urine pH 6 (5-7) 11/05/22 05:17 Ur Specific [place] 1.025 (1.005-1.030) 11/05/22 05:17 Urine Protein Trace (Negative) 11/05/22 05:17 Urine Glucose (UA) Norm (Normal) 11/05/22 05:17 Urine Ketones 2+ (Negative) H 11/05/22 05:17 Urine Blood Neg (Negative) 11/05/22 05:17 Urine Nitrate Negative (Negative) 11/05/22 05:17 Urine Bilirubin 1+ (Negative) H 11/05/22 05:17 Urine Urobilinogen Norm mg/dL (Negative) 11/05/22 05:17 Ur Leukocyte Esterase Negative (Negative) 11/05/22 05:17 Urine RBC 0-4 /hpf (0-2) H 11/05/22 05:17 Urine WBC 0-4 /hpf (0-5) H 11/05/22 05:17 Ur Squamous Epith Cells 0-4 /hpf (0-5) H 11/05/22 05:17 Amorphous Sediment Not Reportable 11/05/22 05:17 Urine Bacteria 1+ /hpf (NONE) H 11/05/22 05:17 Urine Mucus 3+ /hpf 11/05/22 05:17 Discharge Plan Discharge Patient Disposition: Home Clinical Impression: Abdominal pain, Colon cancer metastasized to liver Condition: Stable Prescriptions: No Action morphine 30 mg tablet extended release 30 mg PO Q12H 30 Days Qty: 60 0RF oxycodone-acetaminophen 10-325 mg Tablet 1 tab PO Q6H PRN (Reason: Pain) pantoprazole 40 mg Tablet,Delayed Release (Dr/Ec) 40 mg PO DAILY ondansetron 4 mg Tablet,Disintegrating 4 mg PO Q6H PRN (Reason: Nausea) naloxone 4 mg/actuation [place],Non-Aerosol 4 mg INTRANASAL Q2M PRN (Reason: Opiate Reversal) Rx Instructions: spray 1 dose into ONE nostril; alternate nostrils w each dose until help arrives Unknown Iv Antibiotic See Rx Instructions .ROUTE .COMPLEX Rx Instructions: DIRECTED Discharge Orders: Discharge ED (Routine); Ordered 11/05/22 Ordered By: Niya Taylor Referrals: Clarice Perez MD [Primary Care Provider] - Discharge Diet: Advance as tolerated Discharge Activity: Resume usual activity Patient Instructions: Abdominal Pain (ED), Opioid Safety Coding Level of Care Code ED Sanitation Truck Driver for Alison Groves
[2022-11-05 05:21] VITALS: RESP 16
[2022-11-05] MEDS: ondansetron 2 mg/ML SDV 2 mL 4 MG IVP (05:21)
[2022-11-05] MEDS: HYDROmorphone 1 mg/mL INJ 1 mL IVP (05:21)
[2022-11-05 05:32] LABS: Basophils # 0.1 10^3/uL (0.0-0.1); Basophils % 0.4 %; Eosinophils # 0.2 10^3/uL (0.0-0.8); Eosinophils % 1.4 %; Hematocrit 39.3 % (37.0-47.0); Hemoglobin 12.1 g/dL (11.5-15.3); Lymphocytes % 26.5 %; Mean Corpuscular HGB Conc 30.8 g/dL (30.0-36.0); Mean Corpuscular Volume 84.3 fl (81-99); Monocytes # 0.9 10^3/uL (0.2-0.9); Monocytes % 7.5 %; Neutrophils % 63.9 %; Nucleated Red Blood Cells % 0 %; Platelet Count 394 10^3/cmm (130-400); Red Blood Count 4.66 10^6/uL (4.1-5.3); Red Cell Distribution Width 16.8 % (12.1-15.1); White Blood Count 11.4 10^3/uL (4.0-10.0)
[2022-11-05 05:43] LABS: Urine Appearance Clear (CLEAR); Urine Color Yellow (Yellow)
[2022-11-05 05:44] LABS: Bilirubin Urine 1+ (Negative); Blood Urine Neg (Negative); Glucose Urine UA Norm (Normal); Ketones Urine 2+ (Negative); Leukocyte Esterase Urine Negative (Negative); Nitrate Urine Negative (Negative); Protein Urine Trace (Negative); Specific Gravity, Urine 1.025 (1.005-1.030); Urobilinogen Urine Norm (Negative); pH Urine 6 (5-7)
[2022-11-05 05:45] LABS: Add Urine Microscopic? YES; Mucus Urine 3+ /hpf
[2022-11-05 05:46] LABS: RBC Urine 0-4 /hpf (0-2); Squamous Epithelial Cell Urine 0-4 /hpf (0-5); WBC Urine 0-4 /hpf (0-5)
[2022-11-05 05:47] LABS: Bacteria Urine 1+ /hpf
[2022-11-05] MEDS: sodium chloride 0.9% 1,000 ML 999 ML IV (05:54)
[2022-11-05 06:00] VITALS: BP 107/73; PULSE 75; RESP 16; O2SAT 96
[2022-11-05 06:01] LABS: Alanine Aminotransferase < 5 U/L (0-33); Albumin Level 3.6 g/dL (3.5-5.2); Alkaline Phosphatase 84 U/L (35-105); Anion Gap 20.8 (5-19); Aspartate Amino Transferase 15 U/L (0-32); Blood Urea Nitrogen 5 mg/dL (6-20); Calcium 9.9 mg/dL (8.5-10.5); Carbon Dioxide 26 mmol/L (22-29); Chloride 102 mmol/L (98-107); Globulin 4.1 g/dL (1.3-4.6); Glomerular Filtration Rate 105.8 mL/min (90-130); Glucose 115 mg/dL (65-115); Lipase 30 U/L (13-60); Osmolality Calculated 298 mOsm/kg (285-295); Potassium 3.8 mmol/L (3.5-5.1); Sodium 145 mmol/L (136-145); Total Bilirubin 0.4 mg/dL (0.15-1.2); Total Protein 7.7 g/dL (6.6-8.7)
[2022-11-05] MEDS: oxyCODONE-APAP 10-325 mg Tablet 1 TAB PO (06:12)
== END 2022-11-05 06:52 | disposition home or self-care (01) ==
PROVIDERS: Emergency Provider Emergency Medicine; PCP Family Medicine
DX: R10.9 Unspecified abdominal pain (principal); C18.9 Malignant neoplasm of colon, unspecified; C78.7 Secondary malignant neoplasm of liver and intrahepatic bile duct; Z90.49 Acquired absence of other specified parts of digestive tract; Z93.3 Colostomy status
CPT/HCPCS: 80053; 81001; 83690; 85025; 96361; 96374; 96375; 99284; J1170; J2405; J7030

== ENCOUNTER 2022-11-06 16:19 | Emergency (ER) | payer MEDICAID, SELFPAY ==
[2022-11-06] VITALS (7 sets, daily range): BP systolic 111–127; BP diastolic 70–84; PULSE 75–105; RESP 14–18; TEMP 36.4; O2SAT 93–97; BMI 25.7
--- NOTE | 2022-11-06 16:45 | ED_ITS ---
Documented by User: JACKI Nguyen 11/06/22 22:25 HPI - Abdominal Pain General: Chief Complaint: Abdominal Pain Stated Complaint: abd pain Time Seen by Provider: 11/06/22 16:41 History of Present Illness: Patient is a 52-year-old female comes to the ED with abdominal pain. Patient has history of colon cancer and has colostomy. Patient has been dealing with this abdominal pain now for several weeks. She was seen here in the ED for same complaint back on November 02 and November 05. Abdominal pain is generalized throughout her abdomen. She rates the pain currently a 9 out of 10. Patient has oxycodone and morphine at home and she took her morning doses and states that the pain meds did not help her at all. she did not take her afternoon pain med dose. She has had a decreased appetite and has not been eating much at all over the past 5 days. She is able to keep p.o. fluids down. She reports having subjective fever today. Associated Symptoms: Reports nausea; Denies chills, constipation, diarrhea, dysuria, fever(s), hematochezia, hematuria and vomiting Review of Systems Const: Reports: change in appetite (Decreased appetite); Denies: fever(s), chills or fatigue Eyes: Denies: change in vision or eye discomfort ENMT: Denies: throat pain, odynophagia, nasal discharge or nasal congestion Card: Denies: chest pain, palpitations, edema, swelling of feet/ankles, dyspnea on exertion or orthopnea Resp: Denies: dyspnea, productive cough or non-productive cough GI: Reports: abdominal pain and nausea; Denies: vomiting, diarrhea, constipation or hematochezia : Denies: flank pain, dysuria or hematuria Musc: Denies: neck pain, back pain or extremity swelling Skin/Breast: Denies: rash or new lesions Neuro: Denies: headache(s), numbness in extremities or weakness in extremities PFSH ED PFSH: Medical History Colon cancer metastasized to liver Diverticulitis Family History Other CAD (coronary artery disease) Cancer Hyperlipidemia Hypertension Lung disease Psychiatric illness Stroke Denies family history of Diabetes Clotting disorder Dementia Chronic kidney disease (CKD) Suicide Anesthesia complication Bleeding disorder Social History Smoking and tobacco status: former smoker Quit status (tobacco): has quit using tobacco Former quit date comment: smoked x 10 years Alcohol intake: never Physical Exam Const: COMMON NORMALS: patient oriented x3 HENMT: COMMON NORMALS: normocephalic HEAD & SCALP: normocephalic MOUTH: Normal oral and palatal mucosa present THROAT: posterior oropharynx normal and uvula midline Neck/C-Spine: COMMON NORMALS: supple GENERAL: Yes normal visual inspection Resp: COMMON NORMALS: normal respiratory effort, No retractions, No use of accessory muscles and clear to auscultation bilaterally AUSCULTATION: clear to auscultation bilaterally Cardio: COMMON NORMALS: regular rate, regular rhythm, S1 normal heart sound present, S2 normal heart sound present, No gallops present (Cardio), No clicks present (Cardio), No murmurs present (Cardio) and Peripheral pulses 2+ throughout RATE: regular rate RHYTHM: regular rhythm HEART SOUNDS: S1 normal heart sound present and S2 normal heart sound present PERIPHERAL PULSES: Peripheral pulses 2+ throughout GI: COMMON NORMALS: Normal to inspection, nondistended, normoactive bowel sounds present, Soft to palpation and no masses INSPECTION: Yes GI ostomy present (Colostomy present in left lower quadrant) PALPATION: Yes Soft to palpation and Yes Tenderness to palpation present (GI) (Generalized tenderness throughout abdomen) : COMMON NORMALS: Yes no CVA tenderness BLADDER/KIDNEY EXAM: Yes no CVA tenderness Back/Pelvis: COMMON NORMALS: no CVA tenderness Extremity: COMMON NORMALS: normal to inspection Neuro: COMMON NORMALS: patient oriented x3 GAIT: Yes Normal gait present Skin: GENERAL SKIN EXAM: dry skin Course Vital Signs: Vital signs: Vital Signs Temperature 97.5 F L 11/06/22 16:24 Pulse Rate 75 11/06/22 21:51 Respiratory Rate 16 11/06/22 21:51 Blood Pressure 119/73 11/06/22 21:51 Pulse Oximetry 96 11/06/22 21:51 Oxygen Delivery Me thod 11/06/22 16:24 MDM - Abdominal Pain Medical Decision Making Patient presents with abdominal pain likely from her cancer. She was seen here in the ED on November 02 and November 05 for same complaint. On the her CT of the abdomen pelvis showed no acute findings. Patient has morphine and oxycodone at home to help with pain. Vitals are stable. Patient has generalized tenderness throughout her abdomen and colostomy bag is present with a small amount of stool in bag. Rest of exam is benign. All her labs were unremarkable besides her potassium being a little low at 3.0. She was given p.o. potassium here in the ED. CT of abdomen pelvis was done due to her worsening abdominal pain. CT of abdomen showed no acute findings. Patient was given IV pain meds here in the ED and her pain did improve. She was diagnosed with abdominal pain likely from her cancer, colon cancer metastasized to liver and hypokalemia. She was told to contact her doctor on Tuesday to set up an appointment for reevaluation and to discuss pain medication management. She was sent home with a prescription for Reglan to help with nausea. Patient and patient's understood and agreed with plan. Lab Data I reviewed the patient's lab results. 11/06/22 16:00 11/06/22 16:00 Labs/Radiology: Radiology Impressions Abdomen/Pelvis CT 11/06/22 20:07 IMPRESSION: 1. Grossly stable extensive hepatic metastasis. 2. Stable partially collapsed stent in the sigmoid colon. 3. Stable diverting left colostomy. Laboratory Results WBC 10.0 10^3/uL (4.0-10.0) 11/06/22 16:00 RBC 4.26 10^6/uL (4.1-5.3) 11/06/22 16:00 Hgb 11.1 g/dL (11.5-15.3) L 11/06/22 16:00 Hct 36.3 % (37.0-47.0) L 11/06/22 16:00 MCV 85.2 fl (81-99) 11/06/22 16:00 MCH 26.1 pg (28.0-34.0) L 11/06/22 16:00 MCHC 30.6 g/dL (30.0-36.0) 11/06/22 16:00 RDW 16.5 % (12.1-15.1) H 11/06/22 16:00 Plt Count 316 10^3/cmm (130-400) 11/06/22 16:00 MPV 11.1 fL (7.4-10.4) H 11/06/22 16:00 Neut % (Auto) 67.3 % 11/06/22 16:00 Lymph % (Auto) 20.1 % 11/06/22 16:00 [place] % (Auto) 7.6 % 11/06/22 16:00 Eos % (Auto) 3.9 % 11/06/22 16:00 Baso % (Auto) 0.8 % 11/06/22 16:00 Neut # (Auto) 6.75 10^3/uL (1.8-7.7) 11/06/22 16:00 Lymph # (Auto) 2.0 10^3/uL (0.8-4.8) 11/06/22 16:00 [place] # (Auto) 0.8 10^3/uL (0.2-0.9) 11/06/22 16:00 Eos # (Auto) 0.4 10^3/uL (0.0-0.8) 11/06/22 16:00 Baso # (Auto) 0.1 10^3/uL (0.0-0.1) 11/06/22 16:00 Nucleated RBC % (auto) 0 % 11/06/22 16:00 Nucleated RBCs # 0.0 /100WBC 11/06/22 16:00 Sodium 136 mmol/L (136-145) 11/06/22 16:00 Potassium 3.0 mmol/L (3.5-5.1) L 11/06/22 16:00 Chloride 97 mmol/L (98-107) L 11/06/22 16:00 Carbon Dioxide 25 mmol/L (22-29) 11/06/22 16:00 Anion Gap 17.0 (5-19) 11/06/22 16:00 BUN 6 mg/dL (6-20) 11/06/22 16:00 Creatinine 0.5 mg/dL (0.5-0.9) 11/06/22 16:00 GFR Calculation 130.6 mL/min (90-130) H 11/06/22 16:00 Glucose 108 mg/dL (65-115) 11/06/22 16:00 Calculated Osmolality 280 mOsm/kg (285-295) L 11/06/22 16:00 Calcium 9.1 mg/dL (8.5-10.5) 11/06/22 16:00 Total Bilirubin 0.3 mg/dL (0.15-1.2) 11/06/22 16:00 AST 32 U/L (0-32) 11/06/22 16:00 ALT 10 U/L (0-33) 11/06/22 16:00 Alkaline Phosphatase 80 U/L (35-105) 11/06/22 16:00 Total Protein 6.7 g/dL (6.6-8.7) 11/06/22 16:00 Albumin 3.2 g/dL (3.5-5.2) L 11/06/22 16:00 Globulin 3.5 g/dL (1.3-4.6) 11/06/22 16:00 Lipase 18 U/L (13-60) 11/06/22 16:00 Discharge Plan Discharge Patient Disposition: Home Clinical Impression: Colon cancer metastasized to liver, Hypokalemia Abdominal pain Qualifiers: Abdominal location: generalized Qualified Code(s): R10.84 - Generalized abdominal pain Condition: Stable Prescriptions: New Reglan 10 mg tablet 10 mg PO Q6H PRN (Reason: nausea and vomiting) Qty: 30 0RF No Action morphine 30 mg tablet extended release 30 mg PO Q12H 30 Days Qty: 60 0RF oxycodone-acetaminophen 10-325 mg Tablet 1 tab PO Q6H PRN (Reason: Pain) pantoprazole 40 mg Tablet,Delayed Release (Dr/Ec) 40 mg PO DAILY ondansetron 4 mg Tablet,Disintegrating 4 mg PO Q6H PRN (Reason: Nausea) naloxone 4 mg/actuation [place],Non-Aerosol 4 mg INTRANASAL Q2M PRN (Reason: Opiate Reversal) Rx Instructions: spray 1 dose into ONE nostril; alternate nostrils w each dose until help arrives Unknown Iv Antibiotic See Rx Instructions .ROUTE .COMPLEX Rx Instructions: DIRECTED Discharge Orders: Discharge ED (Routine); Ordered 11/06/22 Ordered By: Carlos Eduardo Garza Referrals: Clarice Perez MD [Primary Care Provider] - Discharge Diet: Regular Discharge Activity: Increase activity as tolerated Activity Restrictions/Additional Instructions: Follow-up with medical provider as directed. Take medications as prescribed. Return to the ER or your medical provider if condition worsens. Please read and understand discharge instructions. Thank you for choosing [facility] for your healthcare needs today. Please realize this is an emergency room and that we are providing you with a medical screening exam and this may not be complete and all inclusive of all the testing and or work up that you may need to determine your ailment or severity of your illness. It is very important that you follow up as instructed or that you return to the Emergency Department should you have concerns or if your condition changes or worsens in any way. Coding Level of Care Code ED Lamination Assembler for Jarong Fwd Documented by User: Markel Lindsay DO 11/07/22 05:37 HPI - Abdominal Pain General: Chief Complaint: Abdominal Pain Stated Complaint: abd pain Time Seen by Provider: 11/06/22 16:41 PFSH ED PFSH: Medical History Colon cancer metastasized to liver Diverticulitis Family History Other CAD (coronary artery disease) Cancer Hyperlipidemia Hypertension Lung disease Psychiatric illness Stroke Denies family history of Diabetes Clotting disorder Dementia Chronic kidney disease (CKD) Suicide Anesthesia complication Bleeding disorder Social History Smoking and tobacco status: former smoker Quit status (tobacco): has quit using tobacco Former quit date comment: smoked x 10 years Alcohol intake: never Course Vital Signs: Vital signs: Vital Signs Temperature 97.5 F L 11/06/22 16:24 Pulse Rate 75 11/06/22 21:51 Respiratory Rate 16 11/06/22 21:51 Blood Pressure 119/73 11/06/22 21:51 Pulse Oximetry 96 11/06/22 21:51 Oxygen Delivery Me thod 11/06/22 16:24 MDM - Abdominal Pain Medical Decision Making Patient presents with abdominal pain likely from her cancer. She was seen here in the ED on November 02 and November 05 for same complaint. On the her CT of the abdomen pelvis showed no acute findings. Patient has morphine and oxycodone at home to help with pain. Vitals are stable. Patient has generalized tenderness throughout her abdomen and colostomy bag is present with a small sara unt of stool in bag. Rest of exam is benign. All her labs were unremarkable besides her potassium being a little low at 3.0. She was given p.o. potassium here in the ED. CT of abdomen pelvis was done due to her worsening abdominal pain. CT of abdomen showed no acute findings. Patient was given IV pain meds here in the ED and her pain did improve. She was diagnosed with abdominal pain likely from her cancer, colon cancer metastasized to liver and hypokalemia. She was told to contact her doctor on Tuesday to set up an appointment for reevaluation and to discuss pain medication management. She was sent home with a prescription for Reglan to help with nausea. Patient and patient's understood and agreed with plan. This patient was originally seen by Mr. Kayla PA-C.? I agree with his history, evaluation, and treatment. Lab Data 11/06/22 16:00 11/06/22 16:00 Labs/Radiology: Radiology Impressions Abdomen/Pelvis CT 11/06/22 20:07 IMPRESSION: 1. Grossly stable extensive hepatic metastasis. 2. Stable partially collapsed stent in the sigmoid colon. 3. Stable diverting left colostomy. Laboratory Results WBC 10.0 10^3/uL (4.0-10.0) 11/06/22 16:00 RBC 4.26 10^6/uL (4.1-5.3) 11/06/22 16:00 Hgb 11.1 g/dL (11.5-15.3) L 11/06/22 16:00 Hct 36.3 % (37.0-47.0) L 11/06/22 16:00 MCV 85.2 fl (81-99) 11/06/22 16:00 MCH 26.1 pg (28.0-34.0) L 11/06/22 16:00 MCHC 30.6 g/dL (30.0-36.0) 11/06/22 16:00 RDW 16.5 % (12.1-15.1) H 11/06/22 16:00 Plt Count 316 10^3/cmm (130-400) 11/06/22 16:00 MPV 11.1 fL (7.4-10.4) H 11/06/22 16:00 Neut % (Auto) 67.3 % 11/06/22 16:00 Lymph % (Auto) 20.1 % 11/06/22 16:00 [place] % (Auto) 7.6 % 11/06/22 16:00 Eos % (Auto) 3.9 % 11/06/22 16:00 Baso % (Auto) 0.8 % 11/06/22 16:00 Neut # (Auto) 6.75 10^3/uL (1.8-7.7) 11/06/22 16:00 Lymph # (Auto) 2.0 10^3/uL (0.8-4.8) 11/06/22 16:00 [place] # (Auto) 0.8 10^3/uL (0.2-0.9) 11/06/22 16:00 Eos # (Auto) 0.4 10^3/uL (0.0-0.8) 11/06/22 16:00 Baso # (Auto) 0.1 10^3/uL (0.0-0.1) 11/06/22 16:00 Nucleated RBC % (auto) 0 % 11/06/22 16:00 Nucleated RBCs # 0.0 /100WBC 11/06/22 16:00 Sodium 136 mmol/L (136-145) 11/06/22 16:00 Potassium 3.0 mmol/L (3.5-5.1) L 11/06/22 16:00 Chloride 97 mmol/L (98-107) L 11/06/22 16:00 Carbon Dioxide 25 mmol/L (22-29) 11/06/22 16:00 Anion Gap 17.0 (5-19) 11/06/22 16:00 BUN 6 mg/dL (6-20) 11/06/22 16:00 Creatinine 0.5 mg/dL (0.5-0.9) 11/06/22 16:00 GFR Calculation 130.6 mL/min (90-130) H 11/06/22 16:00 Glucose 108 mg/dL (65-115) 11/06/22 16:00 Calculated Osmolality 280 mOsm/kg (285-295) L 11/06/22 16:00 Calcium 9.1 mg/dL (8.5-10.5) 11/06/22 16:00 Total Bilirubin 0.3 mg/dL (0.15-1.2) 11/06/22 16:00 AST 32 U/L (0-32) 11/06/22 16:00 ALT 10 U/L (0-33) 11/06/22 16:00 Alkaline Phosphatase 80 U/L (35-105) 11/06/22 16:00 Total Protein 6.7 g/dL (6.6-8.7) 11/06/22 16:00 Albumin 3.2 g/dL (3.5-5.2) L 11/06/22 16:00 Globulin 3.5 g/dL (1.3-4.6) 11/06/22 16:00 Lipase 18 U/L (13-60) 11/06/22 16:00 Discharge Plan Discharge Patient Disposition: Home Clinical Impression: Colon cancer metastasized to liver, Hypokalemia Abdominal pain Qualifiers: Abdominal location: generalized Qualified Code(s): R10.84 - Generalized abdominal pain Condition: Stable Prescriptions: New Reglan 10 mg tablet 10 mg PO Q6H PRN (Reason: nausea and vomiting) Qty: 30 0RF No Action morphine 30 mg tablet extended release 30 mg PO Q12H 30 Days Qty: 60 0RF oxycodone-acetaminophen 10-325 mg Tablet 1 tab PO Q6H PRN (Reason: Pain) pantoprazole 40 mg Tablet,Delayed Release (Dr/Ec) 40 mg PO DAILY ondansetron 4 mg Tablet,Disintegrating 4 mg PO Q6H PRN (Reason: Nausea) naloxone 4 mg/actuation [place],Non-Aerosol 4 mg INTRANASAL Q2M PRN (Reason: Opiate Reversal) Rx Instructions: spray 1 dose into ONE nostril; alternate nostrils w each dose until help arrives Unknown Iv Antibiotic See Rx Instructions .ROUTE .COMPLEX Rx Instructions: DIRECTED Discharge Orders: Discharge ED (Routine); Ordered 11/06/22 Ordered By: Carlos Eduardo Garza Referrals: Clarice Perez MD [Primary Care Provider] - Discharge Diet: Regular Discharge Activity: Increase activity as tolerated Activity Restrictions/Additional Instructions: Follow-up with medical provider as directed. Take medications as prescribed. Return to the ER or your medical provider if condition worsens. Please read and understand discharge instructions. Thank you for choosing [facility] for your healthcare needs today. Please realize this is an emergency room and that we are providing you with a medical screening exam and this may not be complete and all inclusive of all the testing and or work up that you may need to determine your ailment or severity of your illness. It is very important that you follow up as instructed or that you return to the Emergency Department should you have concerns or if your condition changes or worsens in any way. Coding Level of Care Code ED Lamination Assembler for Alison Groves
[2022-11-06 17:07] LABS: Basophils # 0.1 10^3/uL (0.0-0.1); Basophils % 0.8 %; Eosinophils # 0.4 10^3/uL (0.0-0.8); Eosinophils % 3.9 %; Hematocrit 36.3 % (37.0-47.0); Hemoglobin 11.1 g/dL (11.5-15.3); Lymphocytes % 20.1 %; Mean Corpuscular HGB Conc 30.6 g/dL (30.0-36.0); Mean Corpuscular Hemoglobin 26.1 pg (28.0-34.0); Mean Corpuscular Volume 85.2 fl (81-99); Mean Platelet Volume 11.1 fL (7.4-10.4); Monocytes # 0.8 10^3/uL (0.2-0.9); Monocytes % 7.6 %; Neutrophils # 6.75 10^3/uL (1.8-7.7); Neutrophils % 67.3 %; Nucleated Red Blood Cells % 0 %; Platelet Count 316 10^3/cmm (130-400); Red Blood Count 4.26 10^6/uL (4.1-5.3); Red Cell Distribution Width 16.5 % (12.1-15.1)
[2022-11-06] MEDS: ondansetron 2 mg/ML SDV 2 mL 4 MG IVP (17:08)
[2022-11-06] MEDS: HYDROmorphone 1 mg/mL INJ 1 mL IVP ×2 (17:09→21:27)
[2022-11-06] MEDS: sodium chloride 0.9% 500 ML 999 ML IV (17:11)
[2022-11-06 17:41] LABS: Alanine Aminotransferase 10 U/L (0-33); Albumin Level 3.2 g/dL (3.5-5.2); Alkaline Phosphatase 80 U/L (35-105); Aspartate Amino Transferase 32 U/L (0-32); Blood Urea Nitrogen 6 mg/dL (6-20); Calcium 9.1 mg/dL (8.5-10.5); Carbon Dioxide 25 mmol/L (22-29); Chloride 97 mmol/L (98-107); Creatinine Clr Calc Pharmacy 127.5757; Globulin 3.5 g/dL (1.3-4.6); Glomerular Filtration Rate 130.6 mL/min (90-130); Glucose 108 mg/dL (65-115); Lipase 18 U/L (13-60); Osmolality Calculated 280 mOsm/kg (285-295); Sodium 136 mmol/L (136-145); Total Bilirubin 0.3 mg/dL (0.15-1.2); Total Protein 6.7 g/dL (6.6-8.7)
[2022-11-06] MEDS: potassium chloride ER 20 mEq Tablet PO (18:33)
[2022-11-06] MEDS: HYDROmorphone 1 mg/mL INJ 1 mL 0.5 MG IVP (19:26)
--- NOTE | 2022-11-06 20:07 | CTR_ITS ---
PROCEDURE INFORMATION: Exam: CT Abdomen And Pelvis With Contrast Exam date and time: 11/06/2022 8:16 PM Age: 52 years old Clinical indication: Abdominal pain; Prior surgery; Surgery type: Ostomy; Asiya; Appy; Colon; Additional info: Abdominal pain throughout abdomen TECHNIQUE: Imaging protocol: Computed tomography of the abdomen and pelvis with contrast. Radiation optimization: All CT scans at this facility use at least one of these dose optimization techniques: automated exposure control; mA and/or kV adjustment per patient size (includes targeted exams where dose is matched to clinical indication); or iterative reconstruction. Contrast material: OMNI 350; Contrast volume: 100 ml; Contrast route: INTRAVENOUS (IV); REPORTING DATA: Count of CT and Cardiac NM exams in prior 12 months: This patient has received 4 known CTs and 0 known cardiac nuclear medicine studies in the 12 months prior to the current study. COMPARISON: CT abdomen pelvis w con* [id number] 11/02/2022 5:40 PM RADIATION DOSE METRICS: Total DLP (mGy-cm): 456.33 FINDINGS: Liver: Multiple heterogeneous hypodense liver masses most consistent with metastatic disease. Grossly stable extensive hepatic metastasis. Gallbladder and bile ducts: Stable cholecystectomy. Pancreas: Normal. No ductal dilation. Spleen: Normal. No splenomegaly. Adrenal glands: Normal. No mass. Kidneys and ureters: Stable multiple simple left renal cysts with the largest measuring > 1.0 cm. Stomach and bowel: Stable partially collapsed stent in the sigmoid colon. Stable diverting left colostomy. Appendix: No evidence of appendicitis. Intraperitoneal space: Unremarkable. No free air. No significant fluid collection. Vasculature: Calcification of the abdominal aorta and/or iliac arteries consistent with atherosclerotic vessel disease. One or more calcified pelvic phleboliths. Lymph nodes: Unremarkable. No enlarged lymph nodes. Urinary bladder: Unremarkable as visualized. Reproductive: Unremarkable as visualized. Bones/joints: Unremarkable. No acute fracture. Soft tissues: Unremarkable. CT/CT abdomen pelvis w con* [id number] IMPRESSION: 1. Grossly stable extensive hepatic metastasis. 2. Stable partially collapsed stent in the sigmoid colon. 3. Stable diverting left colostomy.
[2022-11-06] MEDS: iohexol 350 mg/mL 500 mL Btl (per mL) IV (20:32)
== END 2022-11-06 21:53 | disposition home or self-care (01) ==
PROVIDERS: Emergency Provider Physician Assistant; PCP Family Medicine
DX: C18.9 Malignant neoplasm of colon, unspecified (principal); C78.7 Secondary malignant neoplasm of liver and intrahepatic bile duct; E87.6 Hypokalemia; Z87.891 Personal history of nicotine dependence; Z93.3 Colostomy status
CPT/HCPCS: 74177; 80053; 83690; 85025; 96374; 96375; 96376; 99285; J1170; J2405; J7040; Q9967

== ENCOUNTER 2022-11-09 09:07 | Oncology outpatient (recurring) (ONCR) | payer MEDICAID, SELFPAY ==
[2022-10-21 12:45] LABS: Basophils # 0.1 10^3/uL (0.0-0.1); Basophils % 0.4 %; Eosinophils # 1.1 10^3/uL (0.0-0.8); Eosinophils % 8.9 %; Hematocrit 33.6 % (37.0-47.0); Lymphocytes # 2.7 10^3/uL (0.8-4.8); Lymphocytes % 23.1 %; Mean Corpuscular HGB Conc 29.8 g/dL (30.0-36.0); Mean Corpuscular Hemoglobin 26.1 pg (28.0-34.0); Mean Corpuscular Volume 87.7 fl (81-99); Mean Platelet Volume 9.4 fL (7.4-10.4); Monocytes # 1.2 10^3/uL (0.2-0.9); Monocytes % 10.2 %; Neutrophils # 6.65 10^3/uL (1.8-7.7); Neutrophils % 56.4 %; Nucleated Red Blood Cells % 0 %; Platelet Count 567 10^3/cmm (130-400); Red Blood Count 3.83 10^6/uL (4.1-5.3); Red Cell Distribution Width 15.8 % (12.1-15.1); White Blood Count 11.8 10^3/uL (4.0-10.0)
[2022-10-21 13:03] LABS: Alanine Aminotransferase 9 U/L (0-33); Albumin Level 2.9 g/dL (3.5-5.2); Alkaline Phosphatase 90 U/L (35-105); Anion Gap 16.8 (5-19); Aspartate Amino Transferase 19 U/L (0-32); Blood Urea Nitrogen 4 mg/dL (6-20); Calcium 8.9 mg/dL (8.5-10.5); Carbon Dioxide 30 mmol/L (22-29); Chloride 95 mmol/L (98-107); Globulin 3.9 g/dL (1.3-4.6); Glucose 93 mg/dL (65-115); Osmolality Calculated 283 mOsm/kg (285-295); Potassium 3.8 mmol/L (3.5-5.1); Sodium 138 mmol/L (136-145); Total Bilirubin 0.2 mg/dL (0.15-1.2); Total Protein 6.8 g/dL (6.6-8.7)
[2022-10-22 09:37] LABS: C Reactive Protein 29.4 mg/L (0.0-4.9)
--- NOTE | 2022-10-29 11:16 | PC.NURSE ---
Patient came in today to have sterile PICC line dressing change. PICC line intact and no redness or drainage. Biopatch and stat hollie applied before applying bioclusive dressing over it. Line flushed with blood return and new end clave with swab cap applied. Patient tolerated procedure and had no other issues or concerns.
[2022-11-02 15:00] VITALS: BP 112/77; PULSE 110; RESP 18; TEMP 37; O2SAT 98
[2022-11-02 15:03] LABS: Basophils # 0.1 10^3/uL (0.0-0.1); Eosinophils # 0.4 10^3/uL (0.0-0.8); Eosinophils % 5.6 %; Hematocrit 37.6 % (37.0-47.0); Hemoglobin 11.3 g/dL (11.5-15.3); Mean Corpuscular HGB Conc 30.1 g/dL (30.0-36.0); Mean Corpuscular Hemoglobin 25.6 pg (28.0-34.0); Mean Corpuscular Volume 85.3 fl (81-99); Mean Platelet Volume 10.7 fL (7.4-10.4); Monocytes # 0.7 10^3/uL (0.2-0.9); Monocytes % 9.2 %; Neutrophils % 41.9 %; Nucleated Red Blood Cells % 0 %; Platelet Count 342 10^3/cmm (130-400); Red Blood Count 4.41 10^6/uL (4.1-5.3); Red Cell Distribution Width 16.3 % (12.1-15.1); White Blood Count 7.2 10^3/uL (4.0-10.0)
[2022-11-02 15:26] LABS: Alanine Aminotransferase < 5 U/L (0-33); Albumin Level 3.4 g/dL (3.5-5.2); Alkaline Phosphatase 82 U/L (35-105); Anion Gap 23.9 (5-19); Aspartate Amino Transferase 13 U/L (0-32); Blood Urea Nitrogen 4 mg/dL (6-20); Calcium 8.9 mg/dL (8.5-10.5); Carbon Dioxide 23 mmol/L (22-29); Chloride 94 mmol/L (98-107); Globulin 3.8 g/dL (1.3-4.6); Glucose 78 mg/dL (65-115); Osmolality Calculated 280 mOsm/kg (285-295); Potassium 3.9 mmol/L (3.5-5.1); Sodium 137 mmol/L (136-145); Total Bilirubin 0.2 mg/dL (0.15-1.2); Total Protein 7.2 g/dL (6.6-8.7)
[2022-11-02 15:55] LABS: Carcinoembryonic Antigen 3.4 ng/mL (0.0-4.7)
[2022-11-09 10:10] VITALS: BP 94/67; PULSE 88; RESP 18; TEMP 36.3; O2SAT 94
--- NOTE | 2022-11-09 10:12 | PC.NURSE ---
Sterile PICC line dressing changed. Biopatch applied to PICC insertion point. Stat lock secured before applying the bioclusive. Patient tolerated procedure. Patient had no questions or concerns at this time.
== END 2022-11-12 23:59 | disposition home or self-care (01) ==
PROVIDERS: PCP Family Medicine; Visit Provider Internal Medicine Hematology & Oncology
DX: C18.7 Malignant neoplasm of sigmoid colon (principal); Z45.2 Encounter for adjustment and management of vascular access device; Z95.828 Presence of other vascular implants and grafts
CPT/HCPCS: 36591; 36592; 80053; 82378; 85025; 86140; 86850; 86900; 99204

== ENCOUNTER 2022-11-13 14:10 | Emergency (ER) | payer MEDICAID, SELFPAY ==
[2022-11-13 14:13] VITALS: BP 107/77; PULSE 87; RESP 94; TEMP 37.1; O2SAT 94; BMI 25.7
--- NOTE | 2022-11-13 14:30 | ED_ITS ---
HPI - Abdominal Pain General: Chief Complaint: Abdominal Pain Stated Complaint: ABD PAIN Time Seen by Provider: 11/13/22 14:13 Source: patient Mode of arrival: EMS History of Present Illness: 52-year-old female with a known history of colon cancer with liver metastasis. She was seen by myself back in August and transferred to [facility] at that time it is a diverting colostomy because of perforation. She has been in for times now in the last 10 days with abdominal pain she has had 2 abdominal [address]s both of which did not show anything acute. Patient continues to have output in her colostomy. MD elicited complaint: abdominal pain Pertinent past history: diverticulitis and other (Colon cancer with metastasis to the liver) Onset (ago): week(s) Pain Consistency: constant Location: Diffuse Severity: moderate Quality: cramping Radiation: none Exacerbating factors: nothing Relieving factors: nothing Associated Symptoms: Reports bloating, GI cramping, nausea and poor appetite; Denies anorexia, belching, change in bowel habits, change in stool character, chills, coffee ground emesis, constipation, diarrhea, dyspepsia, dysuria, excessive flatus, fever(s), heartburn, hematochezia, hematuria, hematemesis, fecal incontinence, loose stools, melena, syncope and vomiting Review of Systems Const: Denies: fever(s), chills, fatigue or malaise ENMT: Denies: throat pain, ear or mastoid pain, nasal discharge or nasal congestion Card: Denies: chest pain, palpitations, irregular heart rhythm, edema or syncope Resp: Denies: dyspnea, productive cough or non-productive cough GI: Reports: abdominal pain, nausea, bloating and GI cramping; Denies: vomiting, hematemesis, coffee ground emesis, heartburn, diarrhea, constipation, belching, excessive flatus, fecal incontinence, change in bowel habits, change in stool character, hematochezia or melena : Denies: dysuria or hematuria Skin/Breast: Denies: rash or pruritus PFSH ED PFSH: Medical History Colon cancer metastasized to liver Diverticulitis Family History Other CAD (coronary artery disease) Cancer Hyperlipidemia Hypertension Lung disease Psychiatric illness Stroke Denies family history of Diabetes Clotting disorder Dementia Chronic kidney disease (CKD) Suicide Anesthesia complication Bleeding disorder Social History Smoking and tobacco status: former smoker Quit status (tobacco): has quit using tobacco Former quit date comment: smoked x 10 years Alcohol intake: never Physical Exam Const: GENERAL APPEARANCE: cooperative and comfortable ORIENTATION/CONSCIOUSNESS: Yes awake, Yes oriented to person, Yes oriented to place and Yes oriented to time HENMT: COMMON NORMALS: normocephalic, atraumatic and hearing grossly normal bilaterally HEAD & SCALP: normocephalic and atraumatic Resp: COMMON NORMALS: normal respiratory effort, No retractions, No use of accessory muscles and clear to auscultation bilaterally AUSCULTATION: clear to auscultation bilaterally Cardio: COMMON NORMALS: regular rate, regular rhythm and No murmurs present (Cardio) RATE: regular rate RHYTHM: regular rhythm GI: COMMON NORMALS: Soft to palpation and No hepatosplenomegaly present AUSCULTATION: Yes normoactive bowel sounds PALPATION: Yes Soft to palpation, No Tenderness to palpation present (GI), No Guarding due to palpation present (GI) and Yes No hepatosplenomegaly present Extremity: COMMON NORMALS: normal to inspection, capillary refill normal, no clubbing, cyanosis or edema, no calf tenderness and no pedal edema Neuro: SENSORIUM/ORIENTATION: Yes oriented to person, Yes oriented to place and Yes oriented to time Skin: COMMON NORMALS: no rashes or lesions noted GENERAL SKIN EXAM: no rashes or lesions noted Course Vital Signs: Vital signs: Vital Signs Temperature 98.7 F 11/13/22 14:13 Pulse Rate 86 11/13/22 17:18 Respiratory Rate 94 H 11/13/22 14:13 Blood Pressure 110/71 11/13/22 17:18 Pulse Oximetry 95 11/13/22 17:18 Oxygen Delivery Me thod 11/13/22 14:13 MDM - Abdominal Pain Medical Decision Making Stage IV: CA. Patient has had multiple visits recently with poor pain control recommend that she increase her extended release morphine to 60 mg. On the chart it says that the were taking it 30 twice a day I wrote a prescription for 60 twice a day patient's tells me she has been taking it 33 times a day plus Dilaudid for breakthrough. Recommend at this point they go to 60 mg 2-3 times a day of the extended release and new prescription was written and follow- up with Dr. Jacobs next week. They can use of breakthrough pain medications as needed. They do have naloxone if she has difficulty. Also gave her p romethazine for nausea and vomiting the Reglan she was prescribed previously has not been helpful. Medical Records I reviewed the patient's medical records. Lab Data I reviewed the patient's lab results. 11/13/22 14:50 11/13/22 14:50 Labs/Radiology: Radiology Impressions Chest/Abdomen X-ray 11/13/22 14:41 IMPRESSION: 1. No acute findings. 2. Right side PICC line in the SVC 3. Metallic stent in the pelvis 4. Cholecystectomy 5. Negative for acute GI abnormality Laboratory Results WBC 7.5 10^3/uL (4.0-10.0) 11/13/22 14:50 RBC 4.54 10^6/uL (4.1-5.3) 11/13/22 14:50 Hgb 12.0 g/dL (11.5-15.3) 11/13/22 14:50 Hct 39.0 % (37.0-47.0) 11/13/22 14:50 MCV 85.9 fl (81-99) 11/13/22 14:50 MCH 26.4 pg (28.0-34.0) L 11/13/22 14:50 MCHC 30.8 g/dL (30.0-36.0) 11/13/22 14:50 RDW 17.1 % (12.1-15.1) H 11/13/22 14:50 Plt Count 287 10^3/cmm (130-400) 11/13/22 14:50 MPV 10.8 fL (7.4-10.4) H 11/13/22 14:50 Neut % (Auto) 58.5 % 11/13/22 14:50 Lymph % (Auto) 28.6 % 11/13/22 14:50 [place] % (Auto) 8.0 % 11/13/22 14:50 Eos % (Auto) 3.8 % 11/13/22 14:50 Baso % (Auto) 0.7 % 11/13/22 14:50 Neut # (Auto) 4.41 10^3/uL (1.8-7.7) 11/13/22 14:50 Lymph # (Auto) 2.2 10^3/uL (0.8-4.8) 11/13/22 14:50 [place] # (Auto) 0.6 10^3/uL (0.2-0.9) 11/13/22 14:50 Eos # (Auto) 0.3 10^3/uL (0.0-0.8) 11/13/22 14:50 Baso # (Auto) 0.1 10^3/uL (0.0-0.1) 11/13/22 14:50 Nucleated RBC % (auto) 0 % 11/13/22 14:50 Nucleated RBCs # 0.0 /100WBC 11/13/22 14:50 Sodium 134 mmol/L (136-145) L 11/13/22 14:50 Potassium 3.5 mmol/L (3.5-5.1) 11/13/22 14:50 Chloride 93 mmol/L (98-107) L 11/13/22 14:50 Carbon Dioxide 21 mmol/L (22-29) L 11/13/22 14:50 Anion Gap 23.5 (5-19) H 11/13/22 14:50 BUN 4 mg/dL (6-20) L 11/13/22 14:50 Creatinine 0.4 mg/dL (0.5-0.9) L 11/13/22 14:50 GFR Calculation 169.0 mL/min (90-130) H 11/13/22 14:50 Glucose 85 mg/dL (65-115) 11/13/22 14:50 Calculated Osmolality 274 mOsm/kg (285-295) L 11/13/22 14:50 Calcium 9.1 mg/dL (8.5-10.5) 11/13/22 14:50 Total Bilirubin 0.4 mg/dL (0.15-1.2) 11/13/22 14:50 AST 15 U/L (0-32) 11/13/22 14:50 ALT 7 U/L (0-33) 11/13/22 14:50 Alkaline Phosphatase 84 U/L (35-105) 11/13/22 14:50 Total Protein 6.7 g/dL (6.6-8.7) 11/13/22 14:50 Albumin 3.3 g/dL (3.5-5.2) L 11/13/22 14:50 Globulin 3.4 g/dL (1.3-4.6) 11/13/22 14:50 Lipase 16 U/L (13-60) 11/13/22 14:50 Urine Color Yellow (Yellow) 11/13/22 14:48 Urine Appearance Hazy (CLEAR) A 11/13/22 14:48 Urine pH 6 (5-7) 11/13/22 14:48 Ur Specific [place] 1.020 (1.005-1.030) 11/13/22 14:48 Urine Protein Neg (Negative) 11/13/22 14:48 Urine Glucose (UA) Norm (Normal) 11/13/22 14:48 Urine Ketones 3+ (Negative) H 11/13/22 14:48 Urine Blood 2+ (Negative) H 11/13/22 14:48 Urine Nitrate Negative (Negative) 11/13/22 14:48 Urine Bilirubin 1+ (Negative) H 11/13/22 14:48 Urine Urobilinogen Norm mg/dL (Negative) 11/13/22 14:48 Ur Leukocyte Esterase Trace (Negative) H 11/13/22 14:48 Urine RBC 0-4 /hpf (0-2) H 11/13/22 14:48 Urine WBC 10-15 /hpf (0-5) H 11/13/22 14:48 Ur Squamous Epith Cells Rare /hpf (0-5) 11/13/22 14:48 Amorphous Sediment Not Reportable 11/13/22 14:48 Urine Bacteria Trace /hpf (NONE) 11/13/22 14:48 Urine Mucus 1+ /hpf 11/13/22 14:48 Discharge Plan Discharge Patient Disposition: Home Clinical Impression: Colon cancer metastasized to liver Condition: Stable Prescriptions: New morphine 60 mg tablet extended release 60 mg PO Q12H Qty: 60 0RF promethazine 25 mg tablet 25 mg PO Q6H PRN (Reason: nausea and vomiting) Qty: 20 0RF Macrobid 100 mg capsule 100 mg PO BID 7 Days Qty: 14 0RF Rx Instructions: must administer with a meal/food Discontinued morphine 30 mg tablet extended release 30 mg PO Q12H 30 Days Qty: 60 0RF No Action oxycodone-acetaminophen 10-325 mg Tablet 1 tab PO Q6H PRN (Reason: Pain) pantoprazole 40 mg Tablet,Delayed Release (Dr/Ec) 40 mg PO DAILY ondansetron 4 mg Tablet,Disintegrating 4 mg PO Q6H PRN (Reason: Nausea) naloxone 4 mg/actuation [place],Non-Aerosol 4 mg INTRANASAL Q2M PRN (Reason: Opiate Reversal) Rx Instructions: spray 1 dose into ONE nostril; alternate nostrils w each dose until help arrives Unknown Iv Antibiotic See Rx Instructions .ROUTE .COMPLEX Rx Instructions: DIRECTED Reglan 10 mg tablet 10 mg PO Q6H PRN (Reason: nausea and vomiting) Qty: 30 0RF Discharge Orders: Discharge ED (Routine); Ordered 11/13/22 Ordered By: Alexi Aranda Referrals: Clarice Perez MD [Primary Care Provider] - Discharge Diet: Clear Liquid Discharge Activity: Increase activity as tolerated Patient Instructions: Opioid Safety, Pain Management Activity Restrictions/Additional Instructions: You are seen today for abdominal pain related to your colon cancer. There is no sign of obstruction. You did have a minor bladder infection start the oral antibiotics tomorrow. We gave you a different antiemetic to use. Reviewing your chart you have been in several times with uncontrolled pain recommend that you increase your morphine tablets to 1 tablet twice daily follow-up with Dr. Jacobs early next week. 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
[2022-11-13] MEDS: sodium chloride 0.9% 1,000 ML 999 ML IV ×2 (14:33→16:45)
--- NOTE | 2022-11-13 14:41 | XRR_ITS ---
PROCEDURE INFORMATION: Exam: XR Abdomen Exam date and time: 11/13/2022 2:54 PM Age: 52 years old Clinical indication: Abdominal pain; Generalized; Additional info: Abd pain TECHNIQUE: Imaging protocol: Radiologic exam of the abdomen. Views: 3 or more views. COMPARISON: CT abdomen pelvis w con* [id number] 11/06/2022 8:16 PM FINDINGS: Tubes, catheters and devices: Right central line is stents into the SVC Gastrointestinal tract: Normal. No bowel dilation. There is a bowel stent in the central pelvis. Cholecystectomy is present. Intraperitoneal space: Normal. No free air. Bones/joints: Unremarkable for age. XR/XR acute abdomen series [id number] IMPRESSION: 1. No acute findings. 2. Right side PICC line in the SVC 3. Metallic stent in the pelvis 4. Cholecystectomy 5. Negative for acute GI abnormality
[2022-11-13 14:59] LABS: Basophils # 0.1 10^3/uL (0.0-0.1); Basophils % 0.7 %; Eosinophils # 0.3 10^3/uL (0.0-0.8); Eosinophils % 3.8 %; Lymphocytes # 2.2 10^3/uL (0.8-4.8); Lymphocytes % 28.6 %; Mean Corpuscular HGB Conc 30.8 g/dL (30.0-36.0); Mean Corpuscular Hemoglobin 26.4 pg (28.0-34.0); Mean Corpuscular Volume 85.9 fl (81-99); Mean Platelet Volume 10.8 fL (7.4-10.4); Monocytes # 0.6 10^3/uL (0.2-0.9); Neutrophils # 4.41 10^3/uL (1.8-7.7); Neutrophils % 58.5 %; Nucleated Red Blood Cells % 0 %; Platelet Count 287 10^3/cmm (130-400); Red Blood Count 4.54 10^6/uL (4.1-5.3); Red Cell Distribution Width 17.1 % (12.1-15.1); White Blood Count 7.5 10^3/uL (4.0-10.0)
[2022-11-13 15:39] VITALS: BP 108/72; PULSE 85; O2SAT 97
[2022-11-13 15:39] LABS: Alanine Aminotransferase 7 U/L (0-33); Albumin Level 3.3 g/dL (3.5-5.2); Alkaline Phosphatase 84 U/L (35-105); Anion Gap 23.5 (5-19); Aspartate Amino Transferase 15 U/L (0-32); Blood Urea Nitrogen 4 mg/dL (6-20); Calcium 9.1 mg/dL (8.5-10.5); Carbon Dioxide 21 mmol/L (22-29); Chloride 93 mmol/L (98-107); Globulin 3.4 g/dL (1.3-4.6); Glucose 85 mg/dL (65-115); Lipase 16 U/L (13-60); Osmolality Calculated 274 mOsm/kg (285-295); Potassium 3.5 mmol/L (3.5-5.1); Sodium 134 mmol/L (136-145); Total Bilirubin 0.4 mg/dL (0.15-1.2); Total Protein 6.7 g/dL (6.6-8.7)
[2022-11-13 16:37] LABS: Urine Appearance Hazy (CLEAR); Urine Color Yellow (Yellow); pH Urine 6 (5-7)
[2022-11-13 16:38] LABS: Add Urine Microscopic? YES; Bacteria Urine TRACE /hpf; Bilirubin Urine 1+ (Negative); Blood Urine 2+ (Negative); Glucose Urine UA Norm (Normal); Ketones Urine 3+ (Negative); Leukocyte Esterase Urine Trace (Negative); Nitrate Urine Negative (Negative); Protein Urine Neg (Negative); RBC Urine 0-4 /hpf (0-2); Squamous Epithelial Cell Urine RARE /hpf (0-5); Urobilinogen Urine Norm (Negative)
[2022-11-13 16:39] LABS: Add Urine Culture? No; Mucus Urine 1+ /hpf
[2022-11-13] MEDS: ondansetron 2 mg/ML SDV 2 mL 4 MG IVP (16:44)
[2022-11-13] MEDS: morphine 4 mg/mL SDV 1 mL IVP (16:44)
[2022-11-13] MEDS: cefTRIAXone 1,000 MG in sodium chloride 0.9% (plus) 50 ML 100 MG IV (16:51)
[2022-11-13 17:18] VITALS: BP 110/71; PULSE 86; O2SAT 95
[2022-11-13 18:35] VITALS: BP 117/73; PULSE 74; RESP 16
== END 2022-11-13 18:36 | disposition home or self-care (01) ==
PROVIDERS: Emergency Provider Family Medicine; PCP Family Medicine
DX: C18.9 Malignant neoplasm of colon, unspecified (principal); C78.7 Secondary malignant neoplasm of liver and intrahepatic bile duct; Z87.891 Personal history of nicotine dependence
CPT/HCPCS: 74022; 80053; 81001; 83690; 85025; 96374; 96375; 99284; J0696; J2270; J2405; J7030

== ENCOUNTER 2022-11-15 16:48 | Emergency (ER) | payer MEDICAID, SELFPAY ==
[2022-11-15] VITALS (44 sets, daily range): BP systolic 101–132; BP diastolic 58–91; PULSE 95–98; RESP 18–20; TEMP 36.5; O2SAT 92–98; BMI 25.7
[2022-11-15 18:54] LABS: Basophils # 0.1 10^3/uL (0.0-0.1); Basophils % 0.5 %; Eosinophils # 0.3 10^3/uL (0.0-0.8); Eosinophils % 2.4 %; Hematocrit 38.8 % (37.0-47.0); Hemoglobin 12.2 g/dL (11.5-15.3); Lymphocytes # 2.7 10^3/uL (0.8-4.8); Lymphocytes % 25.1 %; Mean Corpuscular HGB Conc 31.4 g/dL (30.0-36.0); Mean Corpuscular Hemoglobin 26.7 pg (28.0-34.0); Mean Corpuscular Volume 84.9 fl (81-99); Mean Platelet Volume 10.7 fL (7.4-10.4); Monocytes # 0.8 10^3/uL (0.2-0.9); Monocytes % 7.9 %; Neutrophils # 6.77 10^3/uL (1.8-7.7); Neutrophils % 63.7 %; Nucleated Red Blood Cells % 0 %; Platelet Count 297 10^3/cmm (130-400); Red Blood Count 4.57 10^6/uL (4.1-5.3); Red Cell Distribution Width 17.2 % (12.1-15.1); White Blood Count 10.6 10^3/uL (4.0-10.0)
[2022-11-15 19:17] LABS: Alanine Aminotransferase 6 U/L (0-33); Albumin Level 3.6 g/dL (3.5-5.2); Alkaline Phosphatase 83 U/L (35-105); Anion Gap 21.1 (5-19); Aspartate Amino Transferase 12 U/L (0-32); Blood Urea Nitrogen 2 mg/dL (6-20); Calcium 8.8 mg/dL (8.5-10.5); Carbon Dioxide 22 mmol/L (22-29); Chloride 90 mmol/L (98-107); Globulin 3.1 g/dL (1.3-4.6); Glomerular Filtration Rate 235.5 mL/min (90-130); Glucose 84 mg/dL (65-115); Lipase 16 U/L (13-60); Osmolality Calculated 265 mOsm/kg (285-295); Potassium 3.1 mmol/L (3.5-5.1); Sodium 130 mmol/L (136-145); Total Bilirubin 0.2 mg/dL (0.15-1.2); Total Protein 6.7 g/dL (6.6-8.7)
--- NOTE | 2022-11-15 19:36 | ED_ITS ---
HPI - Abdominal Pain General: Chief Complaint: Abdominal Pain Stated Complaint: whole body pain, n/v Time Seen by Provider: 11/15/22 19:29 History of Present Illness: Patient presents to the ER with complaints of generalized abdominal pain that began today. Patient also been having some dysuria and nausea and vomiting. Patient was in ER approximately 2 days ago for similar symptoms, she had her pain medicines changed and was diagnosed with a UTI and put on antibiotics. Patient's says he has not made it to the pharmacy to get her antibiotics yet. Patient states she has been throwing up her pain medicine. Patient has known metastatic disease of the abdomen MD elicited complaint: abdominal pain Pertinent past history: other (Metastatic disease) Onset (ago): day(s) Pain Consistency: constant Location: Diffuse Severity: moderate Exacerbating factors: nothing Relieving factors: nothing Associated Symptoms: Reports dysuria, nausea and vomiting; Denies chills and fever(s) Treatments prior to arrival: prescription analgesics Review of Systems General: Reports: 10 or more systems reviewed and unremarkable except in HPI and below Const: Denies: fever(s) or chills Eyes: Denies: change in vision ENMT: Denies: throat pain or odynophagia Card: Denies: chest pain, palpitations or irregular heart rhythm Resp: Denies: dyspnea, productive cough or non-productive cough GI: Reports: nausea and vomiting : Reports: dysuria; Denies: flank pain Musc: Denies: neck pain or back pain Skin/Breast: Denies: rash or pruritus Neuro: Denies: headache(s), numbness in extremities or weakness in extremities Psych: Denies: anxiety or depression Endo: Denies: polyuria PFSH ED PFSH: Medical History Colon cancer metastasized to liver Diverticulitis Family History Other CAD (coronary artery disease) Cancer Hyperlipidemia Hypertension Lung disease Psychiatric illness Stroke Denies family history of Diabetes Clotting disorder Dementia Chronic kidney disease (CKD) Suicide Anesthesia complication Bleeding disorder Social History Smoking and tobacco status: former smoker Quit status (tobacco): has quit using tobacco Former quit date comment: smoked x 10 years Alcohol intake: never Physical Exam Const: COMMON NORMALS: average body habitus, patient oriented x3, no vargas itations, healthy appearing, alert and well nourished HENMT: COMMON NORMALS: normocephalic, atraumatic, hearing grossly normal bilaterally, external ears normal, Normal external nose present and moist oral mucous membranes HEAD & SCALP: normocephalic and atraumatic NOSE: Normal external nose present EXTERNAL EAR: Yes external ears normal Neck/C-Spine: COMMON NORMALS: full ROM, no lymphadenopathy, supple, no meningeal signs, no JVD and Thyroid normal THYROID: Thyroid normal Chest: COMMONS NORMALS: normal inspection of the chest and normal palpation of entire chest wall Resp: COMMON NORMALS: normal respiratory effort and No retractions Cardio: COMMON NORMALS: no JVD, regular rate, regular rhythm and S1 normal heart sound present RATE: regular rate RHYTHM: regular rhythm HEART SOUNDS: S1 normal heart sound present GI: COMMON NORMALS: Soft to palpation PALPATION: Yes Soft to palpation and Yes Tenderness to palpation present (GI) (Diffuse) : COMMON NORMALS: Yes no CVA tenderness BLADDER/KIDNEY EXAM: Yes no CVA tenderness Back/Pelvis: COMMON NORMALS: no CVA tenderness Neuro: COMMON NORMALS: patient oriented x3, CN's II-XII intact bilaterally, moves all extremities, no focal motor deficits and no sensory deficits noted SENSORIUM/ORIENTATION: Yes alert MENINGEAL SIGNS: Yes no meningeal signs Course Vital Signs: Vital signs: Vital Signs Temperature 97.7 F 11/15/22 17:02 Pulse Rate 95 11/15/22 22:55 Respiratory Rate 20 H 11/15/22 22:55 Blood Pressure 130/91 11/15/22 22:55 Pulse Oximetry 95 11/15/22 22:55 Oxygen Delivery Me thod 11/15/22 17:02 MDM - Abdominal Pain Medical Decision Making Patient presents to the ER with complaints of generalized abdominal pain, patient has known colon cancer with metastatic disease. Patient has been to the ER multiple times recently and had multiple pain medicine changes. Patient is also having some dysuria and was diagnosed with a UTI at her last ER visit but has been did not get her medicine filled. Lab work was obtained which showed patient had a low potassium of 3.1. Patient was given 1 mg of Dilaudid IV as well as Phenergan and these calm her nausea and pain down. These results were reviewed with the patient and since her pain and nausea had improved patient is electing to go home. Patient will be discharged to follow-up with her primary care physician within the next week. Patient is is instructed to get her antibiotic for UTI filled tomorrow. Patient should continue the current pain medicine regimen she has at home until it is changed by her primary care physician. Differential Diagnosis Likely abdominal pain; Unlikely acute appendicitis, calculus of kidney, constipation, diverticulitis, endometriosis, gastroenteritis, pancreatitis or small bowel obstruction Lab Data 11/15/22 18:45 11/15/22 18:45 Labs/Radiology: Laboratory Results WBC 10.6 10^3/uL (4.0-10.0) H 11/15/22 18:45 RBC 4.57 10^6/uL (4.1-5.3) 11/15/22 18:45 Hgb 12.2 g/dL (11.5-15.3) 11/15/22 18:45 Hct 38.8 % (37.0-47.0) 11/15/22 18:45 MCV 84.9 fl (81-99) 11/15/22 18:45 MCH 26.7 pg (28.0-34.0) L 11/15/22 18:45 MCHC 31.4 g/dL (30.0-36.0) 11/15/22 18:45 RDW 17.2 % (12.1-15.1) H 11/15/22 18:45 Plt Count 297 10^3/cmm (130-400) 11/15/22 18:45 MPV 10.7 fL (7.4-10.4) H 11/15/22 18:45 Neut % (Auto) 63.7 % 11/15/22 18:45 Lymph % (Auto) 25.1 % 11/15/22 18:45 [place] % (Auto) 7.9 % 11/15/22 18:45 Eos % (Auto) 2.4 % 11/15/22 18:45 Baso % (Auto) 0.5 % 11/15/22 18:45 Neut # (Auto) 6.77 10^3/uL (1.8-7.7) 11/15/22 18:45 Lymph # (Auto) 2.7 10^3/uL (0.8-4.8) 11/15/22 18:45 [place] # (Auto) 0.8 10^3/uL (0.2-0.9) 11/15/22 18:45 Eos # (Auto) 0.3 10^3/uL (0.0-0.8) 11/15/22 18:45 Baso # (Auto) 0.1 10^3/uL (0.0-0.1) 11/15/22 18:45 Nucleated RBC % (auto) 0 % 11/15/22 18:45 Nucleated RBCs # 0.0 /100WBC 11/15/22 18:45 Sodium 130 mmol/L (136-145) L 11/15/22 18:45 Potassium 3.1 mmol/L (3.5-5.1) L 11/15/22 18:45 Chloride 90 mmol/L (98-107) L 11/15/22 18:45 Carbon Dioxide 22 mmol/L (22-29) 11/15/22 18:45 Anion Gap 21.1 (5-19) H 11/15/22 18:45 BUN 2 mg/dL (6-20) L 11/15/22 18:45 Creatinine 0.3 mg/dL (0.5-0.9) L 11/15/22 18:45 GFR Calculation 235.5 mL/min (90-130) H 11/15/22 18:45 Glucose 84 mg/dL (65-115) 11/15/22 18:45 Calculated Osmolality 265 mOsm/kg (285-295) L 11/15/22 18:45 Calcium 8.8 mg/dL (8.5-10.5) 11/15/22 18:45 Total Bilirubin 0.2 mg/dL (0.15-1.2) 11/15/22 18:45 AST 12 U/L (0-32) 11/15/22 18:45 ALT 6 U/L (0-33) 11/15/22 18:45 Alkaline Phosphatase 83 U/L (35-105) 11/15/22 18:45 Total Protein 6.7 g/dL (6.6-8.7) 11/15/22 18:45 Albumin 3.6 g/dL (3.5-5.2) 11/15/22 18:45 Globulin 3.1 g/dL (1.3-4.6) 11/15/22 18:45 Lipase 16 U/L (13-60) 11/15/22 18:45 Urine Color Yellow (Yellow) 11/15/22 21:10 Urine Appearance Clear (CLEAR) 11/15/22 21:10 Urine pH 6 (5-7) 11/15/22 21:10 Ur Specific [place] 1.025 (1.005-1.030) 11/15/22 21:10 Urine Protein Neg (Negative) 11/15/22 21:10 Urine Glucose (UA) Norm (Normal) 11/15/22 21:10 Urine Ketones 3+ (Negative) H 11/15/22 21:10 Urine Blood Trace (Negative) H 11/15/22 21:10 Urine Nitrate Negative (Negative) 11/15/22 21:10 Urine Bilirubin 1+ (Negative) H 11/15/22 21:10 Urine Urobilinogen Neg mg/dL (Negative) 11/15/22 21:10 Ur Leukocyte Esterase Negative (Negative) 11/15/22 21:10 Urine RBC 0-4 /hpf (0-2) H 11/15/22 21:10 Urine WBC None /hpf (0-5) 11/15/22 21:10 Ur Squamous Epith Cells 0-4 /hpf (0-5) H 11/15/22 21:10 Amorphous Sediment Not Reportable 11/15/22 21:10 Urine Bacteria None /hpf (NONE) 11/15/22 21:10 Urine Mucus 3+ /hpf 11/15/22 21:10 Discharge Plan Discharge Patient Disposition: Home Clinical Impression: Colon cancer metastasized to liver, Acute hypokalemia Abdominal pain Qualifiers: Abdominal location: generalized Qualified Code(s): R10.84 - Generalized abdominal pain Condition: Stable Prescriptions: New potassium chloride 20 mEq tablet extended release 20 meq PO DAILY Qty: 10 0RF No Action morphine 60 mg tablet extended release 60 mg PO Q12H Qty: 60 0RF promethazine 25 mg tablet 25 mg PO Q6H PRN (Reason: nausea and vomiting) Qty: 20 0RF Macrobid 100 mg capsule 100 mg PO BID 7 Days Qty: 14 0RF Rx Instructions: must administer with a meal/food oxycodone-acetaminophen 10-325 mg Tablet 1 tab PO Q6H PRN (Reason: Pain) pantoprazole 40 mg Tablet,Delayed Release (Dr/Ec) 40 mg PO DAILY ondansetron 4 mg Tablet,Disintegrating 4 mg PO Q6H PRN (Reason: Nausea) naloxone 4 mg/actuation [place],Non-Aerosol 4 mg INTRANASAL Q2M PRN (Reason: Opiate Reversal) Rx Instructions: spray 1 dose into ONE nostril; alternate nostrils w each dose until help arrives Unknown Iv Antibiotic See Rx Instructions .ROUTE .COMPLEX Rx Instructions: DIRECTED Reglan 10 mg tablet 10 mg PO Q6H PRN (Reason: nausea and vomiting) Qty: 30 0RF Discharge Orders: Discharge ED (Routine); Ordered 11/16/22 Ordered By: Pelon León Referrals: Clarice Perez MD [Primary Care Provider] - 1 week Discharge Diet: Advance as tolerated Discharge Activity: Increase activity as tolerated Patient Instructions: Hypokalemia, Abdominal Pain (ED), Opioid Safety, Pain Management Coding Level of Care Code ED Reimbursement Liaison for [facility]ves
[2022-11-15] MEDS: sodium chloride 0.9% 1,000 ML 999 ML IV (20:35)
[2022-11-15] MEDS: HYDROmorphone 1 mg/mL INJ 1 mL IVP (20:35)
[2022-11-15] MEDS: ondansetron 2 mg/ML SDV 2 mL 8 MG IVP (20:35)
[2022-11-15 21:23] LABS: Add Urine Microscopic? YES; Bilirubin Urine 1+ (Negative); Blood Urine Trace (Negative); Glucose Urine UA Norm (Normal); Ketones Urine 3+ (Negative); Leukocyte Esterase Urine Negative (Negative); Nitrate Urine Negative (Negative); Protein Urine Neg (Negative); RBC Urine 0-4 /hpf (0-2); Specific Gravity, Urine 1.025 (1.005-1.030); Squamous Epithelial Cell Urine 0-4 /hpf (0-5); Urine Appearance Clear (CLEAR); Urine Color Yellow (Yellow); Urobilinogen Urine Neg (Negative); pH Urine 6 (5-7)
[2022-11-15 21:24] LABS: Add Urine Culture? No; Mucus Urine 3+ /hpf
== END 2022-11-15 23:01 | disposition home or self-care (01) ==
PROVIDERS: Emergency Medicine; Emergency Provider Emergency Medicine; PCP Family Medicine
DX: R10.84 Generalized abdominal pain (principal); E87.6 Hypokalemia; C18.9 Malignant neoplasm of colon, unspecified; C78.7 Secondary malignant neoplasm of liver and intrahepatic bile duct; Z87.891 Personal history of nicotine dependence
CPT/HCPCS: 80053; 81001; 83690; 85025; 96361; 96374; 96375; 99284; J1170; J2405; J7030

== ENCOUNTER 2022-11-23 17:31 | Emergency (ER) | payer MEDICAID, SELFPAY ==
[2022-11-23] VITALS (7 sets, daily range): BP systolic 95–120; BP diastolic 59–85; PULSE 75–114; RESP 16; TEMP 36.3; O2SAT 95–98
[2022-11-23 19:22] LABS: Basophils # 0.1 10^3/uL (0.0-0.1); Basophils % 0.6 %; Eosinophils # 0.2 10^3/uL (0.0-0.8); Eosinophils % 2.6 %; Hematocrit 41.2 % (37.0-47.0); Lymphocytes # 3.5 10^3/uL (0.8-4.8); Lymphocytes % 39.1 %; Mean Corpuscular HGB Conc 31.6 g/dL (30.0-36.0); Mean Corpuscular Volume 82.4 fl (81-99); Mean Platelet Volume 10.5 fL (7.4-10.4); Monocytes # 0.7 10^3/uL (0.2-0.9); Monocytes % 7.4 %; Neutrophils # 4.51 10^3/uL (1.8-7.7); Neutrophils % 50.1 %; Nucleated Red Blood Cells % 0 %; Platelet Count 320 10^3/cmm (130-400); Red Cell Distribution Width 17.2 % (12.1-15.1)
[2022-11-23] MEDS: HYDROmorphone 1 mg/mL INJ 1 mL IVP ×2 (19:23→21:27)
[2022-11-23] MEDS: ondansetron 2 mg/ML SDV 2 mL 8 MG IVP (19:26)
[2022-11-23] MEDS: sodium chloride 0.9% 1,000 ML 999 ML IV (19:26)
--- NOTE | 2022-11-23 19:33 | ED_ITS ---
HPI - Abdominal Pain General: Chief Complaint: Abdominal Pain Stated Complaint: Abd pains, N/V Time Seen by Provider: 11/23/22 19:06 History of Present Illness: Patient presents to the ER with complaints of nausea vomiting abdominal pain for the last 3 days. Patient states she is astrid ble to keep any food down or drink. Patient has managed to keep enough pain medicine down up until today. Patient's last dose of pain medicine was approximate midnight last night. Patient does have a PICC line in her right arm and she sees oncology for treatment of known metastatic cancer in her abdomen. MD elicited complaint: abdominal pain Onset (ago): day(s) (3 days ago) Pain Consistency: constant Location: Diffuse Severity: moderate Exacerbating factors: nothing Context: other (Metastatic cancer) Associated Symptoms: Reports nausea and vomiting; Denies chills and fever(s) Treatments prior to arrival: prescription analgesics Review of Systems General: Reports: 10 or more systems reviewed and unremarkable except in HPI and below Const: Denies: fever(s) or chills Eyes: Denies: change in vision ENMT: Denies: throat pain or odynophagia Card: Denies: chest pain, palpitations or irregular heart rhythm Resp: Denies: dyspnea or productive cough GI: Reports: abdominal pain, nausea and vomiting : Denies: flank pain or difficulty voiding PFSH ED PFSH: Medical History Colon cancer metastasized to liver Diverticulitis Family History Other CAD (coronary artery disease) Cancer Hyperlipidemia Hypertension Lung disease Psychiatric illness Stroke Denies family history of Diabetes Clotting disorder Dementia Chronic kidney disease (CKD) Suicide Anesthesia complication Bleeding disorder Social History Smoking and tobacco status: former smoker Quit status (tobacco): has quit using tobacco Former quit date comment: smoked x 10 years Alcohol intake: never Physical Exam Const: COMMON NORMALS: patient oriented x3, no limitations and alert HENMT: COMMON NORMALS: normocephalic, atraumatic, hearing grossly normal bilaterally, external ears normal, Normal external nose present and moist oral mucous membranes HEAD & SCALP: normocephalic and atraumatic NOSE: Normal external nose present EXTERNAL EAR: Yes external ears normal Neck/C-Spine: COMMON NORMALS: full ROM, no lymphadenopathy, supple, no meningeal signs, no JVD and Thyroid normal THYROID: Thyroid normal Chest: COMMONS NORMALS: normal inspection of the chest and normal palpation of entire chest wall Resp: COMMON NORMALS: normal respiratory effort, No retractions, No use of accessory muscles and clear to auscultation bilaterally AUSCULTATION: clear to auscultation bilaterally Cardio: COMMON NORMALS: no JVD GI: COMMON NORMALS: Soft to palpation AUSCULTATION: Yes normoactive bowel sounds PALPATION: Yes Soft to palpation and Yes Tenderness to palpation present (GI) Details: LLQ, RLQ, LUQ and RUQ Extremity: COMMON NORMALS: normal to inspection Neuro: COMMON NORMALS: patient oriented x3, CN's II-XII intact bilaterally, moves all extremities, no focal motor deficits and no sensory deficits noted SENSORIUM/ORIENTATION: Yes alert MENINGEAL SIGNS: Yes no meningeal signs Psych: COMMON NORMALS: mental status grossly normal, Normal thought process present, cooperative, normal affect and speech normal SPEECH: Yes normal speech THOUGHT PROCESS: Normal thought process present Course Vital Signs: Vital signs: Vital Signs Temperature 97.4 F L 11/23/22 17:38 Pulse Rate 75 11/23/22 21:00 Respiratory Rate 16 11/23/22 21:27 Blood Pressure 102/65 11/23/22 21:28 Pulse Oximetry 96 11/23/22 21:00 Oxygen Delivery Me thod 11/23/22 17:38 MDM - Abdominal Pain Medical Decision Making Patient presents to the ER with complaints of nausea vomiting for the last 3 days unable to keep the medicine down. Patient does have a extensive history of known metastatic disease in her abdomen. Patient is on multiple daily chronic pain medicines as well as multiple nausea medicines. Patient was seen several days ago for the similar incidents and has been stated then he did not get her antibiotics filled for urinary tract infection. The outpatient has been on the antibiotic for the last 48 hours but is unknown how much of that she has kept down. Patient was given a total of 2 mg Dilaudid IV and 12 mg of Zofran IV and feels much better. Patient was also given 2 g Rocephin IV for urinary tract infection. Patient will be discharged home to follow-up with her primary care doctor as already scheduled on . Differential Diagnosis Likely abdominal pain; Unlikely acute appendicitis, constipation, dive rticulitis, pancreatitis or small bowel obstruction Lab Data 11/23/22 18:54 11/23/22 18:54 Labs/Radiology: Laboratory Results WBC 9.0 10^3/uL (4.0-10.0) 11/23/22 18:54 RBC 5.00 10^6/uL (4.1-5.3) 11/23/22 18:54 Hgb 13.0 g/dL (11.5-15.3) 11/23/22 18:54 Hct 41.2 % (37.0-47.0) 11/23/22 18:54 MCV 82.4 fl (81-99) 11/23/22 18:54 MCH 26.0 pg (28.0-34.0) L 11/23/22 18:54 MCHC 31.6 g/dL (30.0-36.0) 11/23/22 18:54 RDW 17.2 % (12.1-15.1) H 11/23/22 18:54 Plt Count 320 10^3/cmm (130-400) 11/23/22 18:54 MPV 10.5 fL (7.4-10.4) H 11/23/22 18:54 Neut % (Auto) 50.1 % 11/23/22 18:54 Lymph % (Auto) 39.1 % 11/23/22 18:54 [place] % (Auto) 7.4 % 11/23/22 18:54 Eos % (Auto) 2.6 % 11/23/22 18:54 Baso % (Auto) 0.6 % 11/23/22 18:54 Neut # (Auto) 4.51 10^3/uL (1.8-7.7) 11/23/22 18:54 Lymph # (Auto) 3.5 10^3/uL (0.8-4.8) 11/23/22 18:54 [place] # (Auto) 0.7 10^3/uL (0.2-0.9) 11/23/22 18:54 Eos # (Auto) 0.2 10^3/uL (0.0-0.8) 11/23/22 18:54 Baso # (Auto) 0.1 10^3/uL (0.0-0.1) 11/23/22 18:54 Nucleated RBC % (auto) 0 % 11/23/22 18:54 Nucleated RBCs # 0.0 /100WBC 11/23/22 18:54 Sodium 136 mmol/L (136-145) 11/23/22 18:54 Potassium 4.2 mmol/L (3.5-5.1) 11/23/22 18:54 Chloride 92 mmol/L (98-107) L 11/23/22 18:54 Carbon Dioxide 24 mmol/L (22-29) 11/23/22 18:54 Anion Gap 24.2 (5-19) H 11/23/22 18:54 BUN 6 mg/dL (6-20) 11/23/22 18:54 Creatinine 0.3 mg/dL (0.5-0.9) L 11/23/22 18:54 GFR Calculation 235.5 mL/min (90-130) H 11/23/22 18:54 Glucose 115 mg/dL (65-115) 11/23/22 18:54 Calculated Osmolality 281 mOsm/kg (285-295) L 11/23/22 18:54 Calcium 9.6 mg/dL (8.5-10.5) 11/23/22 18:54 Total Bilirubin 0.4 mg/dL (0.15-1.2) 11/23/22 18:54 AST 26 U/L (0-32) 11/23/22 18:54 ALT 11 U/L (0-33) 11/23/22 18:54 Alkaline Phosphatase 95 U/L (35-105) 11/23/22 18:54 Total Protein 7.3 g/dL (6.6-8.7) 11/23/22 18:54 Albumin 4.0 g/dL (3.5-5.2) 11/23/22 18:54 Globulin 3.3 g/dL (1.3-4.6) 11/23/22 18:54 Lipase 15 U/L (13-60) 11/23/22 18:54 Urine Color Dark yellow (Yellow) 11/23/22 20:30 Urine Appearance Sl hazy (CLEAR) A 11/23/22 20:30 Urine pH 6 (5-7) 11/23/22 20:30 Ur Specific [place] 1.025 (1.005-1.030) 11/23/22 20:30 Urine Protein 1+ (Negative) H 11/23/22 20:30 Urine Glucose (UA) Norm (Normal) 11/23/22 20:30 Urine Ketones 3+ (Negative) H 11/23/22 20:30 Urine Blood 2+ (Negative) H 11/23/22 20:30 Urine Nitrate Negative (Negative) 11/23/22 20:30 Urine Bilirubin 1+ (Negative) H 11/23/22 20:30 Urine Urobilinogen 1 mg/dL (Negative) H 11/23/22 20:30 Ur Leukocyte Esterase Trace (Negative) H 11/23/22 20:30 Urine RBC 5-10 /hpf (0-2) H 11/23/22 20:30 Urine WBC 0-4 /hpf (0-5) H 11/23/22 20:30 Ur Squamous Epith Cells 0-4 /hpf (0-5) H 11/23/22 20:30 Calcium Oxalate Crystal 10-15 /hpf H 11/23/22 20:30 Amorphous Sediment Not Reportable 11/23/22 20:30 Urine Bacteria 1+ /hpf (NONE) H 11/23/22 20:30 Urine Mucus 3+ /hpf 11/23/22 20:30 Discharge Plan Discharge Patient Disposition: Home Clinical Impression: Nausea & vomiting, Urinary tract infection Condition: Stable Prescriptions: No Action morphine 60 mg tablet extended release 60 mg PO Q12H Qty: 60 0RF promethazine 25 mg tablet 25 mg PO Q6H PRN (Reason: nausea and vomiting) Qty: 20 0RF potassium chloride 20 mEq tablet extended release 20 meq PO DAILY Qty: 10 0RF oxycodone-acetaminophen 10-325 mg Tablet 1 tab PO Q6H PRN (Reason: Pain) pantoprazole 40 mg Tablet,Delayed Release (Dr/Ec) 40 mg PO DAILY ondansetron 4 mg Tablet,Disintegrating 4 mg PO Q6H PRN (Reason: Nausea) naloxone 4 mg/actuation [place],Non-Aerosol 4 mg INTRANASAL Q2M PRN (Reason: Opiate Reversal) Rx Instructions: spray 1 dose into ONE nostril; alternate nostrils w each dose until help arrives Unknown Iv Antibiotic See Rx Instructions .ROUTE .COMPLEX Rx Instructions: DIRECTED Reglan 10 mg tablet 10 mg PO Q6H PRN (Reason: nausea and vomiting) Qty: 30 0RF Discharge Orders: Discharge ED (Routine); Ordered 11/23/22 Ordered By: Pelon León Referrals: Clarice Perez MD [Primary Care Provider] - 1 week Discharge Diet: Advance as tolerated Discharge Activity: Resume usual activity Patient Instructions: Nausea and Vomiting - Oncology, Urinary Tract Infection - Women Activity Restrictions/Additional Instructions: Please take all your nausea medicine as directed. This may require you taking all 3 kinds of medicine consistently to stay on top of the nausea. Take your antibiotics as directed. If you are unable to keep your antibiotics down even with the nausea medicine you may need to have antibiotic shots for your urinary tract infection. Coding Level of Care Code ED Construction Crew Member for Alison Groves
[2022-11-23 19:38] LABS: Alanine Aminotransferase 11 U/L (0-33); Alkaline Phosphatase 95 U/L (35-105); Anion Gap 24.2 (5-19); Aspartate Amino Transferase 26 U/L (0-32); Blood Urea Nitrogen 6 mg/dL (6-20); Calcium 9.6 mg/dL (8.5-10.5); Carbon Dioxide 24 mmol/L (22-29); Chloride 92 mmol/L (98-107); Globulin 3.3 g/dL (1.3-4.6); Glomerular Filtration Rate 235.5 mL/min (90-130); Glucose 115 mg/dL (65-115); Lipase 15 U/L (13-60); Osmolality Calculated 281 mOsm/kg (285-295); Potassium 4.2 mmol/L (3.5-5.1); Sodium 136 mmol/L (136-145); Total Bilirubin 0.4 mg/dL (0.15-1.2); Total Protein 7.3 g/dL (6.6-8.7)
[2022-11-23] MEDS: ondansetron 2 mg/ML SDV 2 mL 4 MG IVP (21:25)
[2022-11-23 21:59] LABS: Urine Appearance SL Hazy (CLEAR); Urine Color Dark Yellow (Yellow)
[2022-11-23 22:00] LABS: Add Urine Microscopic? YES; Bacteria Urine 1+ /hpf; Bilirubin Urine 1+ (Negative); Blood Urine 2+ (Negative); Glucose Urine UA Norm (Normal); Ketones Urine 3+ (Negative); Leukocyte Esterase Urine Trace (Negative); Mucus Urine 3+ /hpf; Nitrate Urine Negative (Negative); Protein Urine 1+ (Negative); Specific Gravity, Urine 1.025 (1.005-1.030); Squamous Epithelial Cell Urine 0-4 /hpf (0-5); Urobilinogen Urine 1 mg/dL (Negative); WBC Urine 0-4 /hpf (0-5); pH Urine 6 (5-7)
[2022-11-23 22:01] LABS: Add Urine Culture? No
[2022-11-23] MEDS: cefTRIAXone 2,000 MG in sodium chloride 0.9% (plus) 50 ML 100 MG IV (22:37)
== END 2022-11-23 23:06 | disposition home or self-care (01) ==
PROVIDERS: Emergency Provider Emergency Medicine; PCP Family Medicine
DX: R11.2 Nausea with vomiting, unspecified (principal); N39.0 Urinary tract infection, site not specified; Z85.038 Personal history of other malignant neoplasm of large intestine; Z85.05 Personal history of malignant neoplasm of liver; Z87.891 Personal history of nicotine dependence
CPT/HCPCS: 80053; 81001; 83690; 85025; 96365; 96375; 96376; 99284; J0696; J1170; J2405; J7030

== ENCOUNTER 2022-11-26 09:31 | Emergency (ER) | payer MEDICAID, SELFPAY ==
[2022-11-26] VITALS (10 sets, daily range): BP systolic 107–143; BP diastolic 64–92; PULSE 66–81; RESP 16–18; TEMP 36.2; O2SAT 99–100; BMI 22.3
--- NOTE | 2022-11-26 09:43 | ECG_ITS ---
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 Measurements Intervals [place] Rate: 78 P: 28 [place]: 130 QRS: 61 QRSD: 75 T: 30 QT: 370 QTc: 423 Interpretive Statements SINUS RHYTHM NONSPECIFIC T-WAVE ABNORMALITY Compared to ECG 06/29/2017 11:47:01 No significant changes Electronically Signed On 11-26-2022 13:50:29 CDT by Pawel Marcelino M.D. [id number]
--- NOTE | 2022-11-26 10:21 | CT_ITS ---
WS: [id number] CT ABDOMEN PELVIS TECHNIQUE: Contrast-enhanced CT of the abdomen and pelvis with coronal and sagittal reformatted image s. CLINICAL INFORMATION: abd pain COMPARISON: CT October 17, 2022 DLP: 400.[address] scans at [facility] use at least one of these dose optimization techniques: automated e xposure control; mA and/or kV adjustment per patient size (includes targeted exams where dose is matc hed to clinical indication); or iterative reconstruction. FINDINGS: Prior postoperative changes partial colectomy with diverting colostomy LEFT lower quadrant. Sigmoid c olon stent is unchanged in appearance. Hepatic metastasis similar in appearance. Prior cholecystectom y. Bronchiectasis LEFT lower lobe unchanged in appearance. Subsegmental atelectasis in the lingula. Small esophageal hiatal hernia. Normal pancreatic parenchymal enhancement. Normal spleen. Adrenal gla nds are normal. No hydronephrosis. LEFT renal cyst measuring 2.6 cm. Normal caliber abdominal aorta. Celiac and SMA are patent. CT/CT abdomen pelvis w con* [id number] IMPRESSION: 1. Prior postoperative changes partial colectomy with diverting colostomy LEFT lower quadrant. 2. Sigmoid colon stent is unchanged in appearance. 3. Hepatic metastasis appear unchanged 4. Prior cholecystectomy. 5. Bronchiectasis LEFT lower lobe unchanged in appearance.
--- NOTE | 2022-11-26 10:49 | PC.PHAR ---
PTS VERIFIED PTS MEDICATIONS-PTS STATES THE PT HASNT BEEN ABLE TO FINISH KCL 20MEQ DAILY 10D/S OR MACROBID 100MG BID 7D/S BOTH FILLED 11/16/22 STATES THE PT HASNT BEEN ABLE TO KEEP THE MEDICATION DOWN-PTS STATES THE MEDICATIONS ENTERED ARE THE ONLY MEDS SHE TAKES PTS STATES THE PT HASNT STATED TAKING ANY CHEMO TREATMENTS YET-
--- NOTE | 2022-11-26 10:54 | W.ED.CHESTPA ---
HPI - Chest Pain General: Chief Complaint: Chest Pain Stated Complaint: chest pain Time Seen by Provider: 11/26/22 09:38 Source: patient Mode of arrival: wheelchair History of Present Illness: 52-year-old female with a known history of advanced adeno CA the colon with mets to the liver. She was in route to the cancer center to be seen in consultation to discuss treatment options. She has had a lot of nausea and vomiting. She is also had a lot of abdominal pain radiating up into her chest. We actually had seen her for the similar complaint previously and increased her pain medications. She has no known history of coronary artery disease. MD complaint: chest pain Onset (ago): week(s) Timing of current episode: episodic Onset: during rest Pain location: substernal Pain radiation: other (Abdomen) Severity: severe Pain scale (0-10): 9 Quality: sharp Relieving factors: nothing Context: recent illness (: CA) Associated symptoms: Reports abdominal pain, nausea and vomiting; Deny diaphoresis, dyspnea, fever(s), leg edema, palpitations, sense of impending doom or syncope Treatment prior to arrival: other (Narcotic pain medications) Review of Systems Const: Denies: fever(s), chills, fatigue, malaise or diaphoresis ENMT: Denies: throat pain, ear or mastoid pain, nasal discharge or nasal congestion Card: Reports: chest pain; Denies: palpitations or syncope Resp: Denies: dyspnea GI: Reports: abdominal pain, nausea and vomiting : Denies: flank pain, difficulty voiding, dysuria, urinary frequency or urinary urgency Skin/Breast: Denies: rash or pruritus PFSH ED PFSH: Medical History Colon cancer metastasized to liver Diverticulitis Surgical History History of colon surgery 09/2022 ostomy placed. Family History Other CAD (coronary artery disease) Cancer Hyperlipidemia Hypertension Lung disease Psychiatric illness Stroke Denies family history of Diabetes Clotting disorder Dementia Chronic kidney disease (CKD) Suicide Anesthesia complication Bleeding disorder Social History Smoking and tobacco status: former smoker Quit status (tobacco): has quit using tobacco Former quit date comment: smoked x 10 years Alcohol intake: never Physical Exam Const: GENERAL APPEARANCE: cooperative and comfortable ORIENTATION/CONSCIOUSNESS: Yes awake, Yes oriented to person, Yes oriented to place and Yes oriented to time HENMT: COMMON NORMALS: normocephalic, atraumatic and hearing grossly normal bilaterally HEAD & SCALP: normocephalic and atraumatic Chest: COMMONS NORMALS: normal palpation of entire chest wall Resp: COMMON NORMALS: normal respiratory effort, No retractions, No use of accessory muscles and clear to auscultation bilaterally AUSCULTATION: clear to auscultation bilaterally Cardio: COMMON NORMALS: regular rate, regular rhythm and No murmurs present (Cardio) RATE: regular rate RHYTHM: regular rhythm GI: COMMON NORMALS: No hepatosplenomegaly present AUSCULTATION: Yes normoactive bowel sounds PALPATION: Yes Tenderness to palpation present (GI) (Mild epigastric tenderness), No Guarding due to palpation present (GI) and Yes No hepatosplenomegaly present Extremity: COMMON NORMALS: normal to inspection, capillary refill normal, no clubbing, cyanosis or edema, no calf tenderness and no pedal edema Neuro: SENSORIUM/ORIENTATION: Yes oriented to person, Yes oriented to place and Yes oriented to time Skin: COMMON NORMALS: no rashes or lesions noted GENERAL SKIN EXAM: no rashes or lesions noted Course Vital Signs: Vital signs: Vital Signs Temperature 97.1 F L 11/26/22 09:37 Pulse Rate 67 11/26/22 18:55 Respiratory Rate 18 11/26/22 18:37 Blood Pressure 113/71 11/26/22 18:55 Pulse Oximetry 99 11/26/22 18:55 Oxygen Delivery Me thod Room Air 11/26/22 11:42 MDM - Chest Pain Medical Decision Making Cardiac enzymes EKG and chest x-ray unremarkable. CT of the abdomen does not show any significant changes. Discussed with the patient different options. At this point her primary concern is pain control I think she would be helpful to switch her to a fentanyl patch discussed with pharmacy they are recommending a 50 mcg patch every 72 hours of stopping the morphine and continuing to use the oxycodone for breakthrough pain. Prescription was given for the fentanyl patch and will refer her back to oncology clinic they can further adjust her narcotic pain medications. Medical Records I reviewed the patient's medical records. Lab Data I reviewed the patient's lab results. 11/26/22 10:51 11/26/22 10:51 Radiology Impressions Abdomen/Pelvis CT 11/26/22 10:21 IMPRESSION: 1. Prior postoperative changes partial colectomy with diverting colostomy LEFT lower quadrant. 2. Sigmoid colon stent is unchanged in appearance. 3. Hepatic metastasis appear unchanged 4. Prior cholecystectomy. 5. Bronchiectasis LEFT lower lobe unchanged in appearance. Laboratory Results WBC 5.1 10^3/uL (4.0-10.0) 11/26/22 10:51 RBC 4.35 10^6/uL (4.1-5.3) 11/26/22 10:51 Hgb 11.3 g/dL (11.5-15.3) L 11/26/22 10:51 Hct 35.9 % (37.0-47.0) L 11/26/22 10:51 MCV 82.5 fl (81-99) 11/26/22 10:51 MCH 26.0 pg (28.0-34.0) L 11/26/22 10:51 MCHC 31.5 g/dL (30.0-36.0) 11/26/22 10:51 RDW 17.1 % (12.1-15.1) H 11/26/22 10:51 Plt Count 240 10^3/cmm (130-400) 11/26/22 10:51 MPV 10.3 fL (7.4-10.4) 11/26/22 10:51 Neut % (Auto) 57.6 % 11/26/22 10:51 Lymph % (Auto) 30.5 % 11/26/22 10:51 [place] % (Auto) 8.2 % 11/26/22 10:51 Eos % (Auto) 2.7 % 11/26/22 10:51 Baso % (Auto) 0.8 % 11/26/22 10:51 Neut # (Auto) 2.96 10^3/uL (1.8-7.7) 11/26/22 10:51 Lymph # (Auto) 1.6 10^3/uL (0.8-4.8) 11/26/22 10:51 [place] # (Auto) 0.4 10^3/uL (0.2-0.9) 11/26/22 10:51 Eos # (Auto) 0.1 10^3/uL (0.0-0.8) 11/26/22 10:51 Baso # (Auto) 0.0 10^3/uL (0.0-0.1) 11/26/22 10:51 Nucleated RBC % (auto) 0 % 11/26/22 10:51 Nucleated RBCs # 0.0 /100WBC 11/26/22 10:51 Sodium 134 mmol/L (136-145) L 11/26/22 10:51 Potassium 3.4 mmol/L (3.5-5.1) L 11/26/22 10:51 Chloride 95 mmol/L (98-107) L 11/26/22 10:51 Carbon Dioxide 26 mmol/L (22-29) 11/26/22 10:51 Anion Gap 16.4 (5-19) 11/26/22 10:51 BUN 4 mg/dL (6-20) L 11/26/22 10:51 Creatinine 0.3 mg/dL (0.5-0.9) L 11/26/22 10:51 GFR Calculation 235.5 mL/min (90-130) H 11/26/22 10:51 Glucose 81 mg/dL (65-115) 11/26/22 10:51 Calculated Osmolality 274 mOsm/kg (285-295) L 11/26/22 10:51 Calcium 8.7 mg/dL (8.5-10.5) 11/26/22 10:51 Total Bilirubin 0.3 mg/dL (0.15-1.2) 11/26/22 10:51 AST 25 U/L (0-32) 11/26/22 10:51 ALT 12 U/L (0-33) 11/26/22 10:51 Alkaline Phosphatase 80 U/L (35-105) 11/26/22 10:51 Troponin T Baseline 6 ng/L (0-10) 11/26/22 10:51 Troponin T 120 Minute 6.00 ng/L (0-10) 11/26/22 13:20 Delta Troponin T 0 ABS# (0-10) 11/26/22 13:20 Troponin T Hi Sens 6Hr 6.00 ng/L (0-10) 11/26/22 16:57 Troponin T Hi Sens 6Hr Delta 0 ng/L (0-12) 11/26/22 16:57 Total Protein 6.0 g/dL (6.6-8.7) L 11/26/22 10:51 Albumin 3.3 g/dL (3.5-5.2) L 11/26/22 10:51 Globulin 2.7 g/dL (1.3-4.6) 11/26/22 10:51 Lipase 13 U/L (13-60) 11/26/22 10:51 Urine Color Yellow (Yellow) 11/26/22 13:20 Urine Appearance Clear (CLEAR) 11/26/22 13:20 Urine pH 9 (5-7) H 11/26/22 13:20 Ur Specific [place] 1.010 (1.005-1.030) 11/26/22 13:20 Urine Protein Neg (Negative) 11/26/22 13:20 Urine Glucose (UA) Norm (Normal) 11/26/22 13:20 Urine Ketones 1+ (Negative) H 11/26/22 13:20 Urine Blood Neg (Negative) 11/26/22 13:20 Urine Nitrate Negative (Negative) 11/26/22 13:20 Urine Bilirubin Neg (Negative) 11/26/22 13:20 Prot Sulfosalicylic Acd Negative (Negative) 11/26/22 13:20 Urine Urobilinogen Neg mg/dL (Negative) 11/26/22 13:20 Ur Leukocyte Esterase Negative (Negative) 11/26/22 13:20 Discharge Plan Discharge Patient Disposition: Home Clinical Impression: Colon cancer metastasized to liver Condition: Stable Prescriptions: New fentanyl 50 mcg/hr patch 72 hour 1 patch transdermal Q72H Qty: 5 0RF Discontinued morphine 60 mg tablet extended release 60 mg PO Q12H Qty: 60 0RF Rx Instructions: @10:00,22:00 No Action promethazine 25 mg tablet 25 mg PO Q6H PRN (Reason: nausea and vomiting) Qty: 20 0RF ondansetron 4 mg Tablet,Disintegrating 4 mg PO Q6H PRN (Reason: Nausea) naloxone 4 mg/actuation [place],Non-Aerosol 4 mg INTRANASAL Q2M PRN (Reason: Opiate Reversal) Rx Instructions: spray 1 dose into ONE nostril; alternate nostrils w each dose until help arrives metoclopramide HCl [Reglan] 10 mg tablet 10 mg PO Q6H PRN (Reason: nausea and vomiting) Qty: 30 0RF oxycodone 5 mg Tablet 5 mg PO Q6H PRN (Reason: Pain) morphine 60 mg tablet extended release 60 mg PO Q12H Discharge Orders: Discharge ED (Routine); Ordered 11/26/22 Ordered By: Alexi Aranda Referrals: Clarice Perez MD [Primary Care Provider] - Patient Instructions: Opioid Safety, Pain Management Activity Restrictions/Additional Instructions: You are seen today for chest discomfort. Your cardiac enzymes and EKG are unremarkable suspect some of this may be GI in origin related to your known metastatic cancer as well as side effects from the narcotics you have been taking for pain. Suggest that you switch from the long-acting oral morphine to a fentanyl patch continue to use the oxycodone for breakthrough pain follow-up with your primary care doctor or your oncologist next week. Coding Level of Care Code ED Computer Architect for Alison Groves
[2022-11-26 11:03] LABS: Basophils % 0.8 %; Eosinophils # 0.1 10^3/uL (0.0-0.8); Eosinophils % 2.7 %; Hematocrit 35.9 % (37.0-47.0); Hemoglobin 11.3 g/dL (11.5-15.3); Lymphocytes # 1.6 10^3/uL (0.8-4.8); Lymphocytes % 30.5 %; Mean Corpuscular HGB Conc 31.5 g/dL (30.0-36.0); Mean Corpuscular Volume 82.5 fl (81-99); Mean Platelet Volume 10.3 fL (7.4-10.4); Monocytes # 0.4 10^3/uL (0.2-0.9); Monocytes % 8.2 %; Neutrophils # 2.96 10^3/uL (1.8-7.7); Neutrophils % 57.6 %; Nucleated Red Blood Cells % 0 %; Platelet Count 240 10^3/cmm (130-400); Red Blood Count 4.35 10^6/uL (4.1-5.3); Red Cell Distribution Width 17.1 % (12.1-15.1); White Blood Count 5.1 10^3/uL (4.0-10.0)
[2022-11-26] MEDS: iohexol 350 mg/mL 500 mL Btl (per mL) IV (11:13)
[2022-11-26 11:25] LABS: Alanine Aminotransferase 12 U/L (0-33); Albumin Level 3.3 g/dL (3.5-5.2); Alkaline Phosphatase 80 U/L (35-105); Anion Gap 16.4 (5-19); Aspartate Amino Transferase 25 U/L (0-32); Blood Urea Nitrogen 4 mg/dL (6-20); Calcium 8.7 mg/dL (8.5-10.5); Carbon Dioxide 26 mmol/L (22-29); Chloride 95 mmol/L (98-107); Globulin 2.7 g/dL (1.3-4.6); Glomerular Filtration Rate 235.5 mL/min (90-130); Glucose 81 mg/dL (65-115); Lipase 13 U/L (13-60); Osmolality Calculated 274 mOsm/kg (285-295); Potassium 3.4 mmol/L (3.5-5.1); Sodium 134 mmol/L (136-145); Total Bilirubin 0.3 mg/dL (0.15-1.2)
[2022-11-26 11:26] LABS: Troponin(5th) Baseline 6 ng/L (0-10)
[2022-11-26] MEDS: morphine 4 mg/mL SDV 1 mL IVP (11:29)
[2022-11-26] MEDS: ondansetron 2 mg/ML SDV 2 mL 4 MG IVP ×2 (11:30→18:37)
[2022-11-26] MEDS: sodium chloride 0.9% 1,000 ML 999 ML IV (11:30)
--- NOTE | 2022-11-26 12:34 | ECG_ITS ---
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 Measurements Intervals [place] Rate: 71 P: 47 [place]: 151 QRS: 50 QRSD: 76 T: 29 QT: 407 QTc: 444 Interpretive Statements SINUS RHYTHM NONSPECIFIC T-WAVE ABNORMALITY Compared to ECG 11/26/2022 09:43:49 No significant changes Electronically Signed On 11-26-2022 13:52:42 CDT by Pawel Marcelino M.D. [id number]
[2022-11-26 13:25] LABS: Add Urine Microscopic? NO; Charge for UA Resulting for Rev
[2022-11-26 13:35] LABS: Bilirubin Urine Neg (Negative); Blood Urine Neg (Negative); Glucose Urine UA Norm (Normal); Ketones Urine 1+ (Negative); Leukocyte Esterase Urine Negative (Negative); Nitrate Urine Negative (Negative); Protein Urine Neg (Negative); Sulfosalicylic Acid Urine Negative (Negative); Urine Appearance Clear (CLEAR); Urine Color Yellow (Yellow); Urobilinogen Urine Neg (Negative); pH Urine 9 (5-7)
[2022-11-26 14:03] LABS: Troponin 5 2HR Delta 0 ABS# (0-10)
[2022-11-26] MEDS: HYDROmorphone 1 mg/mL INJ 1 mL IVP ×2 (14:54→18:37)
[2022-11-26] MEDS: promethazine 25 mg/mL SDV 1 mL IM (15:14)
[2022-11-26] MEDS: HYDROmorphone 1 mg/mL INJ 1 mL 0.5 MG IVP (16:12)
--- NOTE | 2022-11-26 16:31 | ECG_ITS ---
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 Measurements Intervals [place] Rate: 65 P: 37 [place]: 139 QRS: 59 QRSD: 76 T: 32 QT: 423 QTc: 442 Interpretive Statements SINUS RHYTHM Compared to ECG 11/26/2022 12:34:35 T-wave abnormality no longer present Electronically Signed On 11-27-2022 10:34:45 CDT by Pawel Marcelino M.D. [id number]
[2022-11-26 17:48] LABS: Troponin 5 6HR Delta 0 ng/L (0-12)
== END 2022-11-26 18:56 | disposition home or self-care (01) ==
PROVIDERS: Emergency Provider Family Medicine; PCP Family Medicine
DX: C18.9 Malignant neoplasm of colon, unspecified (principal); C78.7 Secondary malignant neoplasm of liver and intrahepatic bile duct; Z87.891 Personal history of nicotine dependence
CPT/HCPCS: 36415; 74177; 80053; 81003; 83690; 84484; 85025; 93005; 96372; 96374; 96375; 96376; 99285; J1170; J2270; J2405; J2550; J7030; Q9967

== ENCOUNTER 2022-11-28 09:14 | Observation (INO) | payer MEDICAID, SELFPAY ==
[2022-11-28] VITALS (10 sets, daily range): BP systolic 117–124; BP diastolic 71–78; PULSE 71–90; RESP 14–18; TEMP 36.4–36.7; O2SAT 96–99; BMI 22.6; BMI 23.1
--- NOTE | 2022-11-28 09:50 | ED_ITS ---
HPI - Nausea/Vomiting/Diarrhea General: Chief complaint: ER Hold Stated complaint: N/V Time Seen by Provider: 11/28/22 09:15 History of Present Illness: Ms. Lam is a 52-year-old lady with significant past medical history of metastatic colon cancer presenting to the emergency department for nausea and vomiting. She reports worsening symptoms over the past few weeks however they have been going on intermittently for some time. Endorses generalized malaise and abdominal discomfort. Intensity symptoms is moderate. Course has worsened. Home medications have not provided relief. No other specific changes in health, exacerbating, or alleviating factors identified. Onset (ago): week(s) Description of vomiting: watery Associated nausea: Yes Associated abdominal pain: Yes Severity: moderate Exacerbating factors: eating Relieving factors: none Associated symtoms: Reports nausea Review of Systems General: Reports: 10 or more systems reviewed and unremarkable except in HPI and below GI: Reports: nausea PFSH ED PFSH: Medical History Colon cancer metastasized to liver Diverticulitis Surgical History History of colon surgery 09/2022 ostomy placed. Family History Other CAD (coronary artery disease) Cancer Hyperlipidemia Hypertension Lung disease Psychiatric illness Stroke Denies family history of Diabetes Clotting disorder Dementia Chronic kidney disease (CKD) Suicide Anesthesia complication Bleeding disorder Social History Smoking and tobacco status: former smoker Quit status (tobacco): has quit using tobacco Former quit date comment: smoked x 10 years Alcohol intake: never Physical Exam Const: COMMON NORMALS: alert GENERAL APPEARANCE: cooperative and ill appearing HENMT: COMMON NORMALS: normocephalic and atraumatic HEAD & SCALP: normo cephalic and atraumatic THROAT: posterior oropharynx normal OTHER: Dry mucous membranes Eye: COMMON NORMALS: conjunctivae normal CONJUNCTIVA: Yes conjunctivae normal SCLERA: sclerae normal Neck/C-Spine: COMMON NORMALS: supple GENERAL: Yes trachea midline Resp: COMMON NORMALS: clear to auscultation bilaterally EFFORT & INSPECTION: Yes able to speak in complete sentences AUSCULTATION: clear to auscultation bilaterally Cardio: COMMON NORMALS: regular rate and regular rhythm RATE: regular rate RHYTHM: regular rhythm GI: COMMON NORMALS: Soft to palpation PALPATION: Yes Soft to palpation, Yes Tenderness to palpation present (GI) (Baseline), No Guarding due to palpation present (GI) and No Rigid due to palpation Extremity: GENERAL: Yes normal exam except as noted and No edema Neuro: COMMON NORMALS: moves all extremities SENSORIUM/ORIENTATION: Yes alert and No Orientation impaired Psych: COMMON NORMALS: mental status grossly normal and Normal thought process present THOUGHT PROCESS: Normal thought process present Course Vital Signs: Vital signs: Vital Signs Temperature 97.8 F 11/29/22 08:00 Pulse Rate 82 11/29/22 08:00 Respiratory Rate 16 11/29/22 12:35 Blood Pressure 132/85 11/29/22 08:00 Pulse Oximetry 98 11/29/22 12:35 Oxygen Delivery Me thod Room Air 11/29/22 08:00 MDM - Nausea/Vomiting/Diarrhea Medical Decision Making 52-year-old lady with significant past medical history of metastatic cancer presenting for pain, nausea, vomiting despite home medications. Patient is somewhat ill-appearing on exam. Labs overall worse with greater evidence of dehydration and electrolyte derangements compared to recent prior. Recent prior imaging reviewed. Given worsening despite treatment and no significant improvement with ED treatment patient requires inpatient management for cancer related symptoms. The results of ED evaluation were discussed with the patient including plan for admission due to requirement for level of care not available if discharged to prevent significant worsening/deterioration. Patient agreeable with plan. Discussed with hospitalist service who was agreeable to admit patient. Medical Records I reviewed the patient's medical records. Lab Data I reviewed the patient's lab results. 11/29/22 05:37 11/29/22 05:37 Radiology Impressions Chest X-Ray 11/28/22 14:12 IMPRESSION: Stable appearance with prior exam without acute findings. PICC line on the right. KUB X-Ray 11/28/22 14:12 IMPRESSION: Nonspecific nonobstructive bowel gas pattern, with postsurgical changes right upper quadrant and pelvis with stent in the pelvis. Moderate stool content. Laboratory Results WBC 4.6 10^3/uL (4.0-10.0) 11/28/22 10:15 RBC 4.41 10^6/uL (4.1-5.3) 11/28/22 10:15 Hgb 11.5 g/dL (11.5-15.3) 11/28/22 10:15 Hct 36.1 % (37.0-47.0) L 11/28/22 10:15 MCV 81.9 fl (81-99) 11/28/22 10:15 MCH 26.1 pg (28.0-34.0) L 11/28/22 10:15 MCHC 31.9 g/dL (30.0-36.0) 11/28/22 10:15 RDW 17.1 % (12.1-15.1) H 11/28/22 10:15 Plt Count 254 10^3/cmm (130-400) 11/28/22 10:15 MPV 10.1 fL (7.4-10.4) 11/28/22 10:15 Neut % (Auto) 55.1 % 11/28/22 10:15 Lymph % (Auto) 31.9 % 11/28/22 10:15 [place] % (Auto) 10.1 % 11/28/22 10:15 Eos % (Auto) 2.0 % 11/28/22 10:15 Baso % (Auto) 0.7 % 11/28/22 10:15 Neut # (Auto) 2.52 10^3/uL (1.8-7.7) 11/28/22 10:15 Lymph # (Auto) 1.5 10^3/uL (0.8-4.8) 11/28/22 10:15 [place] # (Auto) 0.5 10^3/uL (0.2-0.9) 11/28/22 10:15 Eos # (Auto) 0.1 10^3/uL (0.0-0.8) 11/28/22 10:15 Baso # (Auto) 0.0 10^3/uL (0.0-0.1) 11/28/22 10:15 Nucleated RBC % (auto) 0 % 11/28/22 10:15 Nucleated RBCs # 0.0 /100WBC 11/28/22 10:15 Sodium 126 mmol/L (136-145) L 11/28/22 10:15 Potassium 3.1 mmol/L (3.5-5.1) L 11/28/22 10:15 Chloride 91 mmol/L (98-107) L 11/28/22 10:15 Carbon Dioxide 25 mmol/L (22-29) 11/28/22 10:15 Anion Gap 13.1 (5-19) 11/28/22 10:15 BUN 2 mg/dL (6-20) L 11/28/22 10:15 Creatinine 0.4 mg/dL (0.5-0.9) L 11/28/22 10:15 GFR Calculation 169.0 mL/min (90-130) H 11/28/22 10:15 Glucose 88 mg/dL (65-115) 11/28/22 10:15 Calculated Osmolality 258 mOsm/kg (285-295) L 11/28/22 10:15 Lactate 1.4 mmol/L (0.5-2.2) 11/28/22 10:15 Calcium 8.7 mg/dL (8.5-10.5) 11/28/22 10:15 Magnesium 1.5 mg/dL (1.7-2.3) L 11/28/22 10:15 Total Bilirubin 0.3 mg/dL (0.15-1.2) 11/28/22 10:15 AST 18 U/L (0-32) 11/28/22 10:15 ALT 11 U/L (0-33) 11/28/22 10:15 Alkaline Phosphatase 83 U/L (35-105) 11/28/22 10:15 Total Protein 6.2 g/dL (6.6-8.7) L 11/28/22 10:15 Albumin 3.4 g/dL (3.5-5.2) L 11/28/22 10:15 Globulin 2.8 g/dL (1.3-4.6) 11/28/22 10:15 Lipase 15 U/L (13-60) 11/28/22 10:15 Procalcitonin 0.07 ng/mL (0-0.5) 11/28/22 10:15 TSH 0.83 uIU/mL (0.27-4.20) 11/28/22 10:15 Urine Color Yellow (Yellow) 11/28/22 11:24 Urine Appearance Clear (CLEAR) 11/28/22 11:24 Urine pH 7 (5-7) 11/28/22 11:24 Ur Specific [place] 1.010 (1.005-1.030) 11/28/22 11:24 Urine Protein Neg (Negative) 11/28/22 11:24 Urine Glucose (UA) Norm (Normal) 11/28/22 11:24 Urine Ketones 1+ (Negative) H 11/28/22 11:24 Urine Blood Neg (Negative) 11/28/22 11:24 Urine Nitrate Negative (Negative) 11/28/22 11:24 Urine Bilirubin Neg (Negative) 11/28/22 11:24 Urine Urobilinogen Norm mg/dL (Negative) 11/28/22 11:24 Ur Leukocyte Esterase Negative (Negative) 11/28/22 11:24 Discharge Plan Discharge Patient Disposition: Admitted As Inpatient Admit Provider: Prince Garibay Clinical Impression: Colon cancer metastasized to liver, Nausea & vomiting, Hyponatremia, Hypokalemia, Cancer related pain Condition: Stable Discharge Diet: Advance as tolerated, As Directed and Clear Liquid Discharge Activity: Resume usual activity and Increase activity as tolerated Coding Level of Care Code ED Web Publisher for Alison [place]
[2022-11-28 10:32] LABS: Basophils % 0.7 %; Eosinophils # 0.1 10^3/uL (0.0-0.8); Hematocrit 36.1 % (37.0-47.0); Hemoglobin 11.5 g/dL (11.5-15.3); Lymphocytes # 1.5 10^3/uL (0.8-4.8); Lymphocytes % 31.9 %; Mean Corpuscular HGB Conc 31.9 g/dL (30.0-36.0); Mean Corpuscular Hemoglobin 26.1 pg (28.0-34.0); Mean Corpuscular Volume 81.9 fl (81-99); Mean Platelet Volume 10.1 fL (7.4-10.4); Monocytes # 0.5 10^3/uL (0.2-0.9); Monocytes % 10.1 %; Neutrophils # 2.52 10^3/uL (1.8-7.7); Neutrophils % 55.1 %; Nucleated Red Blood Cells % 0 %; Platelet Count 254 10^3/cmm (130-400); Red Blood Count 4.41 10^6/uL (4.1-5.3); Red Cell Distribution Width 17.1 % (12.1-15.1); White Blood Count 4.6 10^3/uL (4.0-10.0)
[2022-11-28] MEDS: sodium chloride 0.9% 1,000 ML 999 ML IV (10:33)
[2022-11-28] MEDS: ondansetron 2 mg/ML SDV 2 mL 4 MG IVP ×2 (10:37→16:05)
[2022-11-28] MEDS: HYDROmorphone 1 mg/mL INJ 1 mL 0.5 MG IVP ×2 (10:38→11:35)
[2022-11-28 10:54] LABS: Alanine Aminotransferase 11 U/L (0-33); Albumin Level 3.4 g/dL (3.5-5.2); Alkaline Phosphatase 83 U/L (35-105); Anion Gap 13.1 (5-19); Aspartate Amino Transferase 18 U/L (0-32); Blood Urea Nitrogen 2 mg/dL (6-20); Calcium 8.7 mg/dL (8.5-10.5); Carbon Dioxide 25 mmol/L (22-29); Chloride 91 mmol/L (98-107); Creatinine Clr Calc Pharmacy 150.7943; Globulin 2.8 g/dL (1.3-4.6); Glucose 88 mg/dL (65-115); Lactate (Lactic Acid level) 1.4 mmol/L (0.5-2.2); Lipase 15 U/L (13-60); Magnesium 1.5 mg/dL (1.7-2.3); Osmolality Calculated 258 mOsm/kg (285-295); Potassium 3.1 mmol/L (3.5-5.1); Sodium 126 mmol/L (136-145); Total Bilirubin 0.3 mg/dL (0.15-1.2); Total Protein 6.2 g/dL (6.6-8.7)
[2022-11-28 11:27] LABS: Add Urine Microscopic? NO; Charge for UA Resulting for Rev
[2022-11-28] MEDS: magnesium sulfate premix 2 GM/50 ML PIGGYBACK IV (11:33)
[2022-11-28] MEDS: metoclopramide 5 mg/mL SDV 2 mL 10 MG IVP (11:34)
[2022-11-28 11:59] LABS: Urine Appearance Clear (CLEAR); Urine Color Yellow (Yellow); pH Urine 7 (5-7)
[2022-11-28 12:00] LABS: Bilirubin Urine Neg (Negative); Blood Urine Neg (Negative); Glucose Urine UA Norm (Normal); Ketones Urine 1+ (Negative); Leukocyte Esterase Urine Negative (Negative); Nitrate Urine Negative (Negative); Protein Urine Neg (Negative); Urobilinogen Urine Norm (Negative)
--- NOTE | 2022-11-28 14:12 | XRR_ITS ---
PROCEDURE INFORMATION: Exam: XR Abdomen Exam date and time: 11/28/2022 2:35 PM Age: 52 years old Clinical indication: Abdominal pain; Generalized TECHNIQUE: Imaging protocol: Radiologic exam of the abdomen. Views: Frontal supine view of the abdomen. 1 View. COMPARISON: CT abdomen pelvis w con* [id number] 11/26/2022 11:08 AM FINDINGS: Gastrointestinal tract: Nonspecific bowel gas pattern without bowel distention. Mild scattered gas with moderate stool in the colon. Intraperitoneal space: Postsurgical clips in the right upper quadrant and pelvis. Metallic stent is seen within the pelvis just to the left of midline. No indication of free air. Bones/joints: Visualized osseous structures show no acute abnormality. Other findings: Psoas margins appear distinct. No acute change with prior exam. XR/XR KUB portable [id number] IMPRESSION: Nonspecific nonobstructive bowel gas pattern, with postsurgical changes right upper quadrant and pelvis with stent in the pelvis. Moderate stool content.
--- NOTE | 2022-11-28 14:12 | XRR_ITS ---
PROCEDURE INFORMATION: Exam: XR Chest Exam date and time: 11/28/2022 2:30 PM Age: 52 years old Clinical indication: Shortness of breath; Additional info: SOB TECHNIQUE: Imaging protocol: Radiologic exam of the chest. Views: 1 view. COMPARISON: CR XR chest 1V portable [id number] 08/26/2022 12:58 PM FINDINGS: Tubes, catheters and devices: A PICC line on the right appears in good position with tip of the catheter at the expected level of the superior vena cava, as noted with 11/13/2022 exam. Lungs: Mild chronic bronchiectasis lower left lung. No focal infiltrate or consolidation. Pleural spaces: Unremarkable. No pleural effusion. No pneumothorax. Heart/Mediastinum: Unremarkable. No cardiomegaly. Bones/joints: Visualized osseous structures show no acute abnormality. XR/XR chest 1V portable [id number] IMPRESSION: Stable appearance with prior exam without acute findings. PICC line on the right.
--- NOTE | 2022-11-28 14:12 | P.HP_ITS ---
Providers/Chief Complaint Primary Care Provider: Clarice Perez MD Chief Complaint: N/V History of Present Illness Judi Lam is a 52 year old female with a past medical history of colon cancer, status post partial colectomy with diverting colostomy, sigmoid colon stent hepatic metastasis, who presents to [facility] due to persistent nausea, vomiting, she tells me she is having good output from her colostomy, no bloody or black stools, she tells me she feels nauseous, she is not able to keep down solids or liquids, no fevers, no chills, history of food poisoning, does have a cough, is diffusely tender but does not have any particular area of tenderness. Review of Systems Const: Reports: fatigue and malaise; Denies: fever(s) or chills Eyes: Denies: change in vision Card: Denies: chest pain Resp: Denies: dyspnea GI: Reports: abdominal pain, nausea and vomiting : Denies: difficulty voiding Medications/Allergies Home Medications Medication Instructions Recorded Confirmed Last Taken Type naloxone 4 mg/actuation nasal spray 4 mg intranasal Q2M PRN Opiate 09/25/22 11/26/22 Unknown History Reversal ondansetron 4 mg disintegrating 4 mg PO Q6H PRN Nausea 09/25/22 11/26/22 Unknown History tablet metoclopramide HCl 10 mg tablet 10 mg PO Q6H PRN nausea and 11/06/22 11/26/22 Unknown Rx (Reglan) vomiting #30 tabs promethazine 25 mg tablet 25 mg PO Q6H PRN nausea and 11/13/22 11/26/22 Unknown Rx vomiting #20 tabs potassium chloride 20 mEq 20 meq PO DAILY #10 tabs 11/15/22 11/26/22 11/23/22 Rx tablet,extended release FILLED 11/16/22 10D/S fentanyl 50 mcg/hr transdermal 1 patch transdermal Q72H #5 ea 11/26/22 Unknown Rx patch nitrofurantoin 100 mg PO BID 11/26/22 11/26/22 11/23/22 History monohydrate/macrocrystals 100 mg DIDNT FINISH capsule oxycodone 5 mg tablet 5 mg PO Q6H PRN Pain 11/26/22 11/26/22 11/26/22 08:00 History Allergies Allergy/AdvReac Type Severity Reaction Status Date / Time tramadol [From Ultram] Allergy ALGY-Anaphy Verified 11/26/22 10:37 laxis PFSH Acute PFSH: Medical History (Updated 11/28/22 @ 14:19 by Prince Garibay MD) Colon cancer metastasized to liver Diverticulitis Surgical History (Updated 11/28/22 @ 14:15 by Prince Garibay MD) History of colon surgery 09/2022 ostomy placed. Family History Other CAD (coronary artery disease) Cancer Hyperlipidemia Hypertension Lung disease Psychiatric illness Stroke Denies family history of Diabetes Clotting disorder Dementia Chronic kidney disease (CKD) Suicide Anesthesia complication Bleeding disorder Social History Smoking and tobacco status: former smoker Quit status (tobacco): has quit using tobacco Former quit date comment: smoked x 10 years Alcohol intake: never Vitals/I&O/Wt Last Vital Signs Pulse 71 11/28/22 13:08 Resp 14 11/28/22 13:08 BP 121/75 11/28/22 13:08 Pulse Ox 97 11/28/22 13:08 O2 Del Method Room Air 11/28/22 13:08 11/27/22 11/28/22 11/28/22 22:59 06:59 14:59 Intake Total 1050 / 1050 Balance 1050 / 1050 Weight last 48 hrs Weight 59.874 kg Physical Exam Const: COMMON NORMALS: no acute distress and patient oriented x3 HENMT: COMMON NORMALS: normocephalic HEAD & SCALP: normocephalic Eye: COMMON NORMALS: Equal, round and reactive pupils present Neck/C-Spine: COMMON NORMALS: no lymphadenopathy Resp: COMMON NORMALS: normal respiratory effort, No retractions, No use of accessory muscles and clear to auscultation bilaterally AUSCULTATION: clear to auscultation bilaterally Cardio: COMMON NORMALS: regular rate, regular rhythm, S1 normal heart sound present and S2 normal heart sound present RATE: regular rate RHYTHM: regular rhythm HEART SOUNDS: S1 normal heart sound present and S2 normal heart sound present GI: INSPECTION: Yes normal to inspection AUSCULTATION: Yes normoactive bowel sounds PALPATION: Yes Soft to palpation, Yes Tenderness to palpation present (GI) (diffuse tender), No Guarding due to palpation present (GI) and No Rigid due to palpation OTHER: coloscotomy Extremity: COMMON NORMALS: no pedal edema Neuro: COMMON NORMALS: patient oriented x3 Psych: COMMON NORMALS: mental status grossly normal Data 11/28/22 10:15 11/28/22 10:15 Micro: Microbiology 11/28/22 10:15 Blood Culture - Preliminary Blood SPECIMEN COLLECTED 11/28/22 10:22 Blood Culture - Preliminary Blood SPECIMEN COLLECTED A&P Assessment and plan (1) Nausea & vomiting: (2) Urinary tract infection: Qualifiers: Hematuria presence: with hematuria Urinary tract infection type: acute cystitis Qualified Code(s): N30.01 - Acute cystitis with hematuria (3) Hyponatremia: (4) Hypokalemia: (5) Dehydration: Plan dehydration -IVF hyponatremia -dehydration -IVF hypokalemia -will replace hypomagnesemia -replace in er chronic apin -fentanyl patch -Colon cancer -Status post partial colectomy with diverting colostomy, sigmoid colon stent -Hepatic metallic doses Attestations Medical Necessity Statement*: patient requires hospitilization for dehydration, nita, hypontremia, hyp omagnesmia, outpatient with observation Diagnoses Nausea & vomiting R11.2 Urinary tract infection N30.01 Hematuria presence: with hematuria Urinary tract infection type: acute cystitis Hyponatremia E87.1 Hypokalemia E87.6 Dehydration E86.0
[2022-11-28 14:47] LABS: Procalcitonin 0.07 ng/mL (0-0.5)
[2022-11-28] MEDS: morphine 4 mg/mL SDV 1 mL 2 MG IVP ×2 (16:04→20:18)
[2022-11-28] MEDS: enoxaparin 40 mg/0.4 mL Syringe SUBCUT (16:05)
[2022-11-28] MEDS: pantoprazole 40 mg SDV IVP (16:05)
[2022-11-28] MEDS: dextrose 5%-sod chloride 0.9% 1,000 ML 100 ML IV (16:05)
[2022-11-28 16:07] LABS: Thyroid Stimulating Hormone 0.83 uIU/mL (0.27-4.20)
[2022-11-28] MEDS: potassium chloride oral liq 20 mEq/15 mL UDC 40 MEQ PO (17:34)
[2022-11-28] MEDS: metoclopramide 5 mg/mL SDV 2 mL IVP (20:21)
[2022-11-29 01:30] VITALS: RESP 16
[2022-11-29] MEDS: morphine 4 mg/mL SDV 1 mL 2 MG IVP ×3 (01:30→10:25)
[2022-11-29] MEDS: dextrose 5%-sod chloride 0.9% 1,000 ML 100 ML IV (01:33)
[2022-11-29] MEDS: ondansetron 2 mg/ML SDV 2 mL 4 MG IVP ×2 (01:48→10:24)
[2022-11-29 04:00] VITALS: BP 129/83; PULSE 81; RESP 17; TEMP 36.6; O2SAT 98
[2022-11-29 05:56] VITALS: RESP 16
[2022-11-29] MEDS: metoclopramide 5 mg/mL SDV 2 mL IVP (05:56)
[2022-11-29 06:00] LABS: Basophils % 0.4 %; Eosinophils # 0.2 10^3/uL (0.0-0.8); Eosinophils % 3.5 %; Hematocrit 35.1 % (37.0-47.0); Hemoglobin 11.3 g/dL (11.5-15.3); Lymphocytes # 2.1 10^3/uL (0.8-4.8); Lymphocytes % 43.6 %; Mean Corpuscular HGB Conc 32.2 g/dL (30.0-36.0); Mean Corpuscular Hemoglobin 26.3 pg (28.0-34.0); Mean Corpuscular Volume 81.8 fl (81-99); Mean Platelet Volume 10.2 fL (7.4-10.4); Monocytes # 0.4 10^3/uL (0.2-0.9); Monocytes % 8.3 %; Neutrophils # 2.12 10^3/uL (1.8-7.7); Nucleated Red Blood Cells % 0 %; Platelet Count 262 10^3/cmm (130-400); Red Blood Count 4.29 10^6/uL (4.1-5.3); Red Cell Distribution Width 17.2 % (12.1-15.1); White Blood Count 4.8 10^3/uL (4.0-10.0)
[2022-11-29 06:17] LABS: Anion Gap 12.5 (5-19); Calcium 8.1 mg/dL (8.5-10.5); Carbon Dioxide 25 mmol/L (22-29); Chloride 100 mmol/L (98-107); Glomerular Filtration Rate 235.5 mL/min (90-130); Glucose 93 mg/dL (65-115); Magnesium 1.8 mg/dL (1.7-2.3); Potassium 3.5 mmol/L (3.5-5.1); Sodium 134 mmol/L (136-145)
[2022-11-29 06:20] LABS: Blood Urea Nitrogen 1 mg/dL (6-20); Osmolality Calculated 274 mOsm/kg (285-295)
[2022-11-29 08:00] VITALS: BP 132/85; PULSE 82; RESP 16; TEMP 36.6; O2SAT 98
--- NOTE | 2022-11-29 10:24 | PC.CHAP ---
Pastoral Care Encounter/Spiritual Assessment Type of Contact [] Declined lever operator visit [] Patient/Family/Request visit [] Outpatient visit [] Follow-up visit [] Physician referral [] Code/Alert [x] Routine visit [] Staff referral [] Actively dying [] Patient sleeping [] Family support [] [] Out of room [] Palliative care [] [] Receiving care in room [] Pre-surgical visit [] Trauma [] Long length of stay [] ICU visit [] Other: Relational/Emotional Strength [] Patient feels connected with others/family/visitors/staff [] Distress [] Loneliness/isolation [] Abandonment Spirituality of Patient [] Person of Margaret [] Attends Holiness of their Margaret [] Believes in Prayer [] Reads Bible or Buddhism materials [] There are Spiritual issues to be addressed 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 Interventions [x] Prayer [] Active listening [] Non-anxious presence [] Spiritual/emotional support [] Crisis/trauma care [] Spiritual counseling [] Bereavement support [] Provided bereavement packet [] Provided Bible/devotional materials [] Provided toy/stuffed animal, coloring book to patient or family member [] Provided Communion [] Anointing/[place] [] Salvation [] Completed spiritual assessment [] Other: Impact on Illness or Injury [] Angry [] Fearful [] Anxious [] Often cries [] Exhaustion [] Unable to work [] Unable to attend zoroastrian [] Unable to walk/stand [] Unable to read [] Unable to drive [] Unable to eat/drink [] Unable to sleep [] Unable to be with family [] Patient intubated [] Other: Summary Time spent with patient
[2022-11-29 10:25] VITALS: RESP 16; O2SAT 98
--- NOTE | 2022-11-29 11:12 | PM.DCS ---
Discharge Providers Date of Admission: 11/28/22 13:28 Date of Discharge: November 29, 2022 Attending Provider at Admission: Prince Garibay MD Attending Provider at Discharge: Bienvenido Herring MD Primary Care Provider: Clarice Perez MD Diagnoses at Discharge Discharge Diagnosis (1) Nausea & vomiting: Status: Acute (2) Urinary tract infection: Status: Acute Qualifiers: Hematuria presence: with hematuria Urinary tract infection type: acute cystitis Qualified Code(s): N30.01 - Acute cystitis with hematuria (3) Hyponatremia: Status: Acute (4) Hypokalemia: Status: Acute (5) Dehydration: Status: Acute Reason for Visit Reason for Visit: N/V Brief History: History as per HPI: Judi Lam is a 52 year old female with a past medical history of colon cancer, status post partial colectomy with diverting colostomy, sigmoid colon stent hepatic metastasis, who presents to [facility] due to persistent nausea, vomiting, she tells me she is having good output from her colostomy, no bloody or black stools, she tells me she feels nauseous, she is not able to keep down solids or liquids, no fevers, no chills, history of food poisoning, does have a cough, is diffusely tender but does not have any particular area of tenderness. Hospital Course Hospital Course Patient was admitted to the hospital further evaluation and management of electrolyte abnormalities in setting of poor oral intake. She was started on IV hydration and electrolytes were replaced. Diet was gradually advanced and she is able to currently tolerate full liquid diet well. Her symptoms also resolved as for dehydration and electrolyte abnormalities resolved. She has been discharged in hemodynamically stable condition with advised to maintain her hydration with up to 2 to 3 L of liquid daily. She is advised to maintain full liquid diet for now and advance gradually within next 2 to 3 days with follow-up with a primary care provider within next 1 week for a repeat BMP. Physical Exam Const: COMMON NORMALS: no acute distress and patient oriented x3 HENMT: COMMON NORMALS: normocephalic HEAD & SCALP: normocephalic Eye: COMMON NORMALS: Equal, round and reactive pupils present PUPIL: Yes Equal, round and reactive pupils present Neck/C-Spine: COMMON NORMALS: no lymphadenopathy Resp: COMMON NORMALS: normal respiratory effort, No retractions, No use of accessory muscles and clear to auscultation bilaterally AUSCULTATION: clear to auscultation bilaterally Cardio: COMMON NORMALS: regular rate, regular rhythm, S1 normal heart sound present and S2 normal heart sound present RATE: regular rate RHYTHM: regular rhythm HEART SOUNDS: S1 normal heart sound present and S2 normal heart sound present GI: COMMON NORMALS: Soft to palpation INSPECTION: Yes normal to inspection AUSCULTATION: Yes normoactive bowel sounds PALPATION: Yes Soft to palpation, Yes Tenderness to palpation present (GI) (diffuse tender), No Guarding due to palpation present (GI) and No Rigid due to palpation OTHER: coloscotomy Extremity: COMMON NORMALS: no pedal edema Neuro: COMMON NORMALS: patient oriented x3 Psych: COMMON NORMALS: mental status grossly normal Discharge Data Studies Completed and Pending Completed Studies During Hospitalization Category Date Time Status XR KUB portable [id number] Stat Exams 11/28/22 14:12 Completed XR chest 1V portable [id number] Stat Exams 11/28/22 14:12 Completed Pending at discharge Category Date Time Status Basic Metabolic Panel AM LABS Lab 11/30/22 04:00 Ordered Basic Metabolic Panel AM LABS Lab 12/01/22 04:00 Ordered Blood Culture Stat Lab 11/28/22 10:15 Results Clostridioides Difficile PCR Routine Lab 11/28/22 14:51 Ordered Complete Blood Count w/Auto AM LABS Lab 11/30/22 04:00 Ordered Complete Blood Count w/Auto AM LABS Lab 12/01/22 04:00 Ordered Enteric Bacterial Panel by PCR Routine Lab 11/28/22 14:51 Ordered Enteric Parasite Panel by PCR Routine Lab 11/28/22 14:51 Ordered Immunochemical Fecal OCB Routine Lab 11/28/22 14:51 Ordered Lactoferrin Routine Lab 11/28/22 14:51 Ordered Magnesium AM LABS Lab 11/30/22 04:00 Ordered Magnesium AM LABS Lab 12/01/22 04:00 Ordered Radiology Impressions Chest X-Ray 11/28/22 14:12 IMPRESSION: Stable appearance with prior exam without acute findings. PICC line on the right. KUB X-Ray 11/28/22 14:12 IMPRESSION: Nonspecific nonobstructive bowel gas pattern, with postsurgical changes right upper quadrant and pelvis with stent in the pelvis. Moderate stool content. Laboratory Results WBC 4.8 10^3/uL (4.0-10.0) 11/29/22 05:37 RBC 4.29 10^6/uL (4.1-5.3) 11/29/22 05:37 Hgb 11.3 g/dL (11.5-15.3) L 11/29/22 05:37 Hct 35.1 % (37.0-47.0) L 11/29/22 05:37 MCV 81.8 fl (81-99) 11/29/22 05:37 MCH 26.3 pg (28.0-34.0) L 11/29/22 05:37 MCHC 32.2 g/dL (30.0-36.0) 11/29/22 05:37 RDW 17.2 % (12.1-15.1) H 11/29/22 05:37 Plt Count 262 10^3/cmm (130-400) 11/29/22 05:37 MPV 10.2 fL (7.4-10.4) 11/29/22 05:37 Neut % (Auto) 44.0 % 11/29/22 05:37 Lymph % (Auto) 43.6 % 11/29/22 05:37 [place] % (Auto) 8.3 % 11/29/22 05:37 Eos % (Auto) 3.5 % 11/29/22 05:37 Baso % (Auto) 0.4 % 11/29/22 05:37 Neut # (Auto) 2.12 10^3/uL (1.8-7.7) 11/29/22 05:37 Lymph # (Auto) 2.1 10^3/uL (0.8-4.8) 11/29/22 05:37 [place] # (Auto) 0.4 10^3/uL (0.2-0.9) 11/29/22 05:37 Eos # (Auto) 0.2 10^3/uL (0.0-0.8) 11/29/22 05:37 Baso # (Auto) 0.0 10^3/uL (0.0-0.1) 11/29/22 05:37 Nucleated RBC % (auto) 0 % 11/29/22 05:37 Nucleated RBCs # 0.0 /100WBC 11/29/22 05:37 Sodium 134 mmol/L (136-145) L 11/29/22 05:37 Potassium 3.5 mmol/L (3.5-5.1) 11/29/22 05:37 Chloride 100 mmol/L (98-107) 11/29/22 05:37 Carbon Dioxide 25 mmol/L (22-29) 11/29/22 05:37 Anion Gap 12.5 (5-19) 11/29/22 05:37 BUN 1 mg/dL (6-20) L 11/29/22 05:37 Creatinine 0.3 mg/dL (0.5-0.9) L 11/29/22 05:37 GFR Calculation 235.5 mL/min (90-130) H 11/29/22 05:37 Glucose 93 mg/dL (65-115) 11/29/22 05:37 Calculated Osmolality 274 mOsm/kg (285-295) L 11/29/22 05:37 Lactate 1.4 mmol/L (0.5-2.2) 11/28/22 10:15 Calcium 8.1 mg/dL (8.5-10.5) L 11/29/22 05:37 Magnesium 1.8 mg/dL (1.7-2.3) 11/29/22 05:37 Total Bilirubin 0.3 mg/dL (0.15-1.2) 11/28/22 10:15 AST 18 U/L (0-32) 11/28/22 10:15 ALT 11 U/L (0-33) 11/28/22 10:15 Alkaline Phosphatase 83 U/L (35-105) 11/28/22 10:15 Total Protein 6.2 g/dL (6.6-8.7) L 11/28/22 10:15 Albumin 3.4 g/dL (3.5-5.2) L 11/28/22 10:15 Globulin 2.8 g/dL (1.3-4.6) 11/28/22 10:15 Lipase 15 U/L (13-60) 11/28/22 10:15 Procalcitonin 0.07 ng/mL (0-0.5) 11/28/22 10:15 TSH 0.83 uIU/mL (0.27-4.20) 11/28/22 10:15 Urine Color Yellow (Yellow) 11/28/22 11:24 Urine Appearance Clear (CLEAR) 11/28/22 11:24 Urine pH 7 (5-7) 11/28/22 11:24 Ur Specific [place] 1.010 (1.005-1.030) 11/28/22 11:24 Urine Protein Neg (Negative) 11/28/22 11:24 Urine Glucose (UA) Norm (Normal) 11/28/22 11:24 Urine Ketones 1+ (Negative) H 11/28/22 11:24 Urine Blood Neg (Negative) 11/28/22 11:24 Urine Nitrate Negative (Negative) 11/28/22 11:24 Urine Bilirubin Neg (Negative) 11/28/22 11:24 Urine Urobilinogen Norm mg/dL (Negative) 11/28/22 11:24 Ur Leukocyte Esterase Negative (Negative) 11/28/22 11:24 Vitals Last Vital Signs Temp 97.8 F 11/29/22 08:00 Pulse 82 11/29/22 08:00 Resp 16 11/29/22 10:25 BP 132/85 11/29/22 08:00 Pulse Ox 98 11/29/22 10:25 O2 Del Method Room Air 11/29/22 08:00 Discharge Plan Discharge Patient Disposition: Home Condition: Stable Prescriptions: Continued promethazine 25 mg tablet 25 mg PO Q6H PRN (Reason: nausea and vomiting) Qty: 20 0RF ondansetron 4 mg Tablet,Disintegrating 4 mg PO Q6H PRN (Reason: Nausea) naloxone 4 mg/actuation [place],Non-Aerosol 4 mg INTRANASAL Q2M PRN (Reason: Opiate Reversal) Rx Instructions: spray 1 dose into ONE nostril; alternate nostrils w each dose until help arrives metoclopramide HCl [Reglan] 10 mg tablet 10 mg PO Q6H PRN (Reason: nausea and vomiting) Qty: 30 0RF oxycodone 5 mg Tablet 5 mg PO Q6H PRN (Reason: Pain) fentanyl 50 mcg/hr patch 72 hour 1 patch transdermal Q72H Qty: 5 0RF morphine 60 mg tablet extended release 60 mg PO Q12H Discontinued nitrofurantoin monohyd/m-cryst 100 mg capsule 100 mg PO BID Rx Instructions: FOR 7 D/S (RX FILLED 11/16/22) Discharge Orders: Discharge Order (Routine); Ordered 11/29/22 Ordered By: Bienvenido Herring Referrals: Clarice Perez MD [Primary Care Provider] - 11/30/22 1:50 pm Discharge Diet: Advance as tolerated, As Directed and Clear Liquid Discharge Activity: Resume usual activity and Increase activity as tolerated Patient Instructions: Dehydration - Adult, Nausea and Vomiting - Oncology, Urinary Tract Infection in Women (GEN), Opioid Safety Activity Restrictions/Additional Instructions: Advance diet gradually within next 3 to 4 days. Follow-up with a primary care provider within next 2 to 3 days for repeat BMP. Discharge Attestations Time Spent in Discharge Care*: greater than 30 min Specific Discharge Activities: educating patient, educating and/or supporting family/caregiver, discussing with pcp/other providers, discussing with bilingual patient support caseworker/social workers/dc planners, documenting/other paperwork and evaluating patient/reviewing data Quality Metrics Clinical Quality Measures [ No reported AMI, CVA or VTE this stay] Coding Level of Care Code 89912 Total time (in minutes) for Discharge: 40 Diagnoses Nausea & vomiting R11.2 Urinary tract infection N30.01 Hematuria presence: with hematuria Urinary tract infection type: acute cystitis Hyponatremia E87.1 Hypokalemia E87.6 Dehydration E86.0
[2022-11-29 12:35] VITALS: RESP 16; O2SAT 98
== END 2022-11-29 12:36 | disposition home or self-care (01) ==
LOC: ER 12:49 → MEDSURG 15:32
PROVIDERS: Admitting Provider Family Medicine; Emergency Provider Emergency Medicine; PCP Family Medicine; Visit Provider Student in an Organized Health Care Education/Training Program
DX: C18.9 Malignant neoplasm of colon, unspecified (principal); C78.7 Secondary malignant neoplasm of liver and intrahepatic bile duct; G89.3 Neoplasm related pain (acute) (chronic); N30.01 Acute cystitis with hematuria; E87.1 Hypo-osmolality and hyponatremia; E87.6 Hypokalemia; E86.0 Dehydration; R11.2 Nausea with vomiting, unspecified; Z87.891 Personal history of nicotine dependence; Z93.3 Colostomy status
CPT/HCPCS: 36415; 36569; 71045; 74018; 80048; 80053; 81003; 83605; 83690; 83735; 84145; 84443; 85025; 87040; 96372; 96374; 96375; 96376; 99285; C9113; G0378; J1170; J1650; J2270; J2405; J2765; J3475; J7030; J7042

== ENCOUNTER 2022-12-09 11:30 | Oncology outpatient (recurring) (ONCR) | payer MEDICAID, SELFPAY ==
[2022-11-19 09:41] VITALS: BP 112/77; PULSE 77; TEMP 36.8; O2SAT 96
--- NOTE | 2022-11-19 09:42 | PC.NURSE ---
PICC line dressing changed completed for pt via sterile technique. No redness or irritation noted. Pt tolerated well. LANCE
--- NOTE | 2022-11-26 09:40 | PC.NURSE ---
Patient complaining of nausea and chest pain when she arrived to the infusion suite for her lab work. Patient taken to the ER for evaluation.
--- NOTE | 2022-12-03 11:51 | PC.NURSE ---
PICC line dressing change completed on pt via sterile technique. Pt tolerated well. Slight redness noted around insertion site. Last dressing change was completed on 11/19/22, dressing was dated for 11/19/22 by LANCE. Pts spouse states pt was taken to ER and admitted to hospital. Pts spouse states he questioned dressing being changed. Dressing change was not completed. - LANCE
[2022-12-09 12:17] LABS: Basophils # 0.1 10^3/uL (0.0-0.1); Basophils % 0.7 %; Eosinophils # 0.3 10^3/uL (0.0-0.8); Eosinophils % 3.3 %; Hematocrit 39.6 % (37.0-47.0); Hemoglobin 11.9 g/dL (11.5-15.3); Lymphocytes # 2.5 10^3/uL (0.8-4.8); Lymphocytes % 33.4 %; Mean Corpuscular HGB Conc 30.1 g/dL (30.0-36.0); Mean Corpuscular Volume 86.7 fl (81-99); Mean Platelet Volume 9.6 fL (7.4-10.4); Monocytes # 0.5 10^3/uL (0.2-0.9); Monocytes % 6.7 %; Neutrophils # 4.23 10^3/uL (1.8-7.7); Neutrophils % 55.5 %; Nucleated Red Blood Cells % 0 %; Platelet Count 247 10^3/cmm (130-400); Red Blood Count 4.57 10^6/uL (4.1-5.3); Red Cell Distribution Width 17.9 % (12.1-15.1); White Blood Count 7.6 10^3/uL (4.0-10.0)
[2022-12-09 12:47] LABS: Alanine Aminotransferase 11 U/L (0-33); Albumin Level 3.4 g/dL (3.5-5.2); Alkaline Phosphatase 115 U/L (35-105); Aspartate Amino Transferase 16 U/L (0-32); Blood Urea Nitrogen 9 mg/dL (6-20); Calcium 8.7 mg/dL (8.5-10.5); Carbon Dioxide 28 mmol/L (22-29); Chloride 99 mmol/L (98-107); Globulin 3.2 g/dL (1.3-4.6); Glucose 107 mg/dL (65-115); Osmolality Calculated 279 mOsm/kg (285-295); Sodium 135 mmol/L (136-145); Total Bilirubin 0.2 mg/dL (0.15-1.2); Total Protein 6.6 g/dL (6.6-8.7)
[2022-12-09 13:04] LABS: Anion Gap 12.5 (5-19); Potassium 4.5 mmol/L (3.5-5.1)
[2022-12-09 16:18] LABS: Carcinoembryonic Antigen 3.5 ng/mL (0.0-4.7)
== END 2022-12-12 23:59 | disposition home or self-care (01) ==
PROVIDERS: Nurse Practitioner Family; PCP Family Medicine; Visit Provider Internal Medicine Hematology & Oncology
DX: C78.7 Secondary malignant neoplasm of liver and intrahepatic bile duct (principal); C18.9 Malignant neoplasm of colon, unspecified
CPT/HCPCS: 80053; 82378; 85025; J1642

== ENCOUNTER 2023-01-03 16:27 | Emergency (ER) | payer MEDICAID, SELFPAY ==
[2023-01-03 16:36] VITALS: BP 121/71; PULSE 119; RESP 22; TEMP 36.9; O2SAT 98; BMI 22.4
--- NOTE | 2023-01-03 16:40 | XRR_ITS ---
PROCEDURE INFORMATION: Exam: XR Chest Exam date and time: 01/03/2023 4:46 PM Age: 52 years old Clinical indication: Dyspnea TECHNIQUE: Imaging protocol: Radiologic exam of the chest. Views: 1 view. COMPARISON: CR (CHEST, ) 11/28/2022 2:30 PM FINDINGS: Tubes, catheters and devices: A PICC line on the right remains in good position, as noted with prior exam. Lungs: Mild chronic bronchiectasis lower left lung. Small amount of left basilar atelectasis/scarring. No focal infiltrate or consolidation. Pleural spaces: Unremarkable. No pleural effusion. No pneumothorax. Heart/Mediastinum: Unremarkable. No cardiomegaly. Bones/joints: Slight rotation. Mild spondylotic change thoracic spine. Other findings: No significant change with prior exam, otherwise. XR/XR chest 1V portable [id number] IMPRESSION: 1. Mild chronic left basilar lung changes. 2. PICC line on the right. 3. No acute findings, otherwise.
--- NOTE | 2023-01-03 17:34 | ED_ITS ---
HPI - SOB/Dyspnea General: Chief Complaint: Shortness of Breath/Dyspnea Stated Complaint: Anxiety,colon cx, sob Time Seen by Provider: 01/03/23 16:37 History of Present Illness: HPI Narrative: Presents ER with feelings that she just cannot catch her breath. Patient says this started this afternoon after she started taking a second type of chemotherapy and she believes she is having a reaction. Patient tried taking 2- 3 albuterol treatments at home and smoking marijuana but neither 1 helped. MD elicited complaint: shortness of breath and anxiety Pertinent past history: other (Started new chemo) Onset (ago): minute(s) (This before arrival) Timing: constant Severity: mild Exacerbating factors: nothing Relieving factors: nothing Known history of: other (Metastatic cancer) Associated symptoms: Deny abdominal pain, chest pain, extremity pain, fever(s), nausea, palpitations or vomiting Review of Systems General: Reports: 10 or more systems reviewed and unremarkable except in HPI and below Const: Denies: fever(s) or chills Eyes: Denies: change in vision or photophobia ENMT: Denies: throat pain or odynophagia Card: Denies: chest pain, palpitations, irregular heart rhythm or edema Resp: Reports: dyspnea; Denies: productive cough or non-productive cough GI: Denies: abdominal pain, nausea, vomiting or diarrhea : Denies: flank pain, difficulty voiding or dysuria Musc: Denies: neck pain, back pain or extremity pain Skin/Breast: Denies: rash, pruritus or erythema PFSH ED PFSH: Medical History Colon cancer metastasized to liver Diverticulitis Surgical History History of colon surgery 09/2022 ostomy placed. Family History Other CAD (coronary artery disease) Cancer Hyperlipidemia Hypertension Lung disease Psychiatric illness Stroke Denies family history of Diabetes Clotting disorder Dementia Chronic kidney disease (CKD) Suicide Anesthesia complication Bleeding disorder Social History Smoking and tobacco status: former smoker Quit status (tobacco): has quit using tobacco Former quit date comment: smoked x 10 years Alcohol intake: never Physical Exam Const: COMMON NORMALS: no acute distress, average body habitus, patient oriented x3, no limitations, healthy appearing, alert and well nourished HENMT: COMMON NORMALS: normocephalic, atraumatic, hearing grossly normal bilaterally, external ears normal, Normal external nose present and moist oral mucous membranes HEAD & SCALP: normocephalic and atraumatic NOSE: Normal external nose present EXTERNAL EAR: Yes external ears normal Eye: COMMON NORMALS: Equal, round and reactive pupils present, EOMs intact bilaterally, conjunctivae normal and no scleral icterus CONJUNCTIVA: Yes conjunctivae normal PUPIL: Yes Equal, round and reactive pupils present Neck/C-Spine: COMMON NORMALS: no JVD Chest: COMMONS NORMALS: normal inspection of the chest and normal palpation of entire chest wall Resp: COMMON NORMALS: normal respiratory effort, No retractions, No use of accessory muscles and clear to auscultation bilaterally AUSCULTATION: clear to auscultation bilaterally Cardio: COMMON NORMALS: no JVD, regular rate, regular rhythm, S1 normal heart sound present, S2 normal heart sound present, No gallops present (Cardio), No c licks present (Cardio) and No murmurs present (Cardio) RATE: regular rate RHYTHM: regular rhythm HEART SOUNDS: S1 normal heart sound present and S2 normal heart sound present GI: COMMON NORMALS: Normal to inspection, nondistended, normoactive bowel sounds present, Soft to palpation and No hepatosplenomegaly present PALPATION: Yes Soft to palpation and Yes No hepatosplenomegaly present Neuro: COMMON NORMALS: patient oriented x3 SENSORIUM/ORIENTATION: Yes alert Course Vital Signs: Vital signs: Vital Signs Temperature 98.4 F 01/03/23 16:36 Pulse Rate 119 H 01/03/23 16:36 Respiratory Rate 22 H 01/03/23 16:36 Blood Pressure 121/71 01/03/23 16:36 Pulse Oximetry 98 01/03/23 16:36 Oxygen Delivery Me thod Room Air 01/03/23 16:36 MDM - SOB/Dyspnea Medical Decision Making Patient presents to the ER with complaints of worsening shortness of breath. Patient is started her second type of chemotherapy today and became short of breath essentially immediately afterwards. Patient did multiple breathing medicines and smoked pot at home but neither of those helped so she came in. Lab work was obtained as well as chest x-ray all of which is essentially benign except for patient's anemia with a hemoglobin 10.8 hematocrit 35.4. Patient was given 10 mg of Decadron and 50 mg of Benadryl. Patient was rechecked on and she says she feels better. Patient be discharged home. Differential Diagnosis Unlikely acute exacerbation of chronic obstructive airways disease, congestive heart failure, community acquired pneumonia, asthma with exacerbation or pulmo nary embolism Medical Records I reviewed the patient's medical records. Lab Data I reviewed the patient's lab results. 01/03/23 18:20 01/03/23 18:20 Labs/Radiology: Radiology Impressions Chest X-Ray 01/03/23 16:40 IMPRESSION: 1. Mild chronic left basilar lung changes. 2. PICC line on the right. 3. No acute findings, otherwise. Laboratory Results WBC 8.5 10^3/uL (4.0-10.0) 01/03/23 18:20 RBC 4.08 10^6/uL (4.1-5.3) L 01/03/23 18:20 Hgb 10.8 g/dL (11.5-15.3) L 01/03/23 18:20 Hct 35.4 % (37.0-47.0) L 01/03/23 18:20 MCV 86.8 fl (81-99) 01/03/23 18:20 MCH 26.5 pg (28.0-34.0) L 01/03/23 18:20 MCHC 30.5 g/dL (30.0-36.0) 01/03/23 18:20 RDW 17.7 % (12.1-15.1) H 01/03/23 18:20 Plt Count 359 10^3/cmm (130-400) 01/03/23 18:20 MPV 9.3 fL (7.4-10.4) 01/03/23 18:20 Neut % (Auto) 93.6 % 01/03/23 18:20 Lymph % (Auto) 4.6 % 01/03/23 18:20 [place] % (Auto) 1.1 % 01/03/23 18:20 Eos % (Auto) 0.0 % 01/03/23 18:20 Baso % (Auto) 0.1 % 01/03/23 18:20 Neut # (Auto) 7.99 10^3/uL (1.8-7.7) H 01/03/23 18:20 Lymph # (Auto) 0.4 10^3/uL (0.8-4.8) L 01/03/23 18:20 [place] # (Auto) 0.1 10^3/uL (0.2-0.9) L 01/03/23 18:20 Eos # (Auto) 0.0 10^3/uL (0.0-0.8) 01/03/23 18:20 Baso # (Auto) 0.0 10^3/uL (0.0-0.1) 01/03/23 18:20 Nucleated RBC % (auto) 0 % 01/03/23 18:20 Nucleated RBCs # 0.0 /100WBC 01/03/23 18:20 Sodium 138 mmol/L (136-145) 01/03/23 18:20 Potassium 4.1 mmol/L (3.5-5.1) 01/03/23 18:20 Chloride 99 mmol/L (98-107) 01/03/23 18:20 Carbon Dioxide 20 mmol/L (22-29) L 01/03/23 18:20 Anion Gap 23.1 (5-19) H 01/03/23 18:20 BUN 7 mg/dL (6-20) 01/03/23 18:20 Creatinine 0.4 mg/dL (0.5-0.9) L 01/03/23 18:20 GFR Calculation 169.0 mL/min (90-130) H 01/03/23 18:20 Glucose 199 mg/dL (65-115) H 01/03/23 18:20 Calculated Osmolality 290 mOsm/kg (285-295) 01/03/23 18:20 Calcium 9.4 mg/dL (8.5-10.5) 01/03/23 18:20 Total Bilirubin 0.2 mg/dL (0.15-1.2) 01/03/23 18:20 AST 16 U/L (0-32) 01/03/23 18:20 ALT 12 U/L (0-33) 01/03/23 18:20 Alkaline Phosphatase 123 U/L (35-105) H 01/03/23 18:20 Total Protein 6.6 g/dL (6.6-8.7) 01/03/23 18:20 Albumin 3.8 g/dL (3.5-5.2) 01/03/23 18:20 Globulin 2.8 g/dL (1.3-4.6) 01/03/23 18:20 Discharge Plan Discharge Patient Disposition: Home Clinical Impression: Shortness of breath Medication adverse effect Qualifiers: Encounter type: initial encounter Qualified Code(s): T50.905A - Adverse effect of unspecified drugs, medicaments and biological substances, initial encounter Condition: Stable Prescriptions: No Action lidocaine 5 % adhesive patch,medicated 1 patch topical .COMPLEX PRN Rx Instructions: 1 patch topically unknown PRN montelukast [Singulair] 10 mg tablet 10 mg PO DAILY Qty: 30 2RF morphine 60 mg tablet extended release 60 mg PO Q12H 30 Days Qty: 60 0RF morphine 15 mg tablet 15 mg PO .COMPLEX PRN (Reason: pain) 7 Days Qty: 30 0RF Rx Instructions: 15 mg orally Q4-6H PRN; fentanyl 50 mcg/hr patch 72 hour 1 patch transdermal Q72H 15 Days Qty: 5 0RF promethazine 25 mg tablet 25 mg PO Q6H PRN (Reason: nausea and vomiting) Qty: 20 0RF ondansetron 4 mg Tablet,Disintegrating 4 mg PO Q6H PRN (Reason: Nausea) naloxone 4 mg/actuation [place],Non-Aerosol 4 mg INTRANASAL Q2M PRN (Reason: Opiate Reversal) Rx Instructions: spray 1 dose into ONE nostril; alternate nostrils w each dose until help arrives metoclopramide HCl [Reglan] 10 mg tablet 10 mg PO Q6H PRN (Reason: nausea and vomiting) Qty: 30 0RF prochlorperazine maleate [Compazine] 10 mg tablet 10 mg PO Q4H PRN (Reason: Mild Nausea) Qty: 30 3RF lorazepam 1 mg tablet 0.5 - 1 mg PO Q6H PRN (Reason: Severe Nausea) Qty: 30 3RF Discharge Orders: Discharge ED (Routine); Ordered 01/03/23 Ordered By: Pelon León Referrals: Clarice Perez MD [Primary Care Provider] - 1 week Patient Instructions: Shortness of Breath (ED) Activity Restrictions/Additional Instructions: Please call your oncologist first thing in the morning as your chemotherapy dose may need to be adjusted or changed based upon your reaction. Coding Level of Care Code ED Lead Performance Support Analyst for Alison Groves
[2023-01-03] MEDS: diphenhydrAMINE 50 mg/mL SDV 1mL IVP (18:25)
[2023-01-03] MEDS: dexamethasone 10 mg/mL INJ IVP (18:26)
[2023-01-03 19:01] LABS: Basophils % 0.1 %; Hematocrit 35.4 % (37.0-47.0); Hemoglobin 10.8 g/dL (11.5-15.3); Lymphocytes # 0.4 10^3/uL (0.8-4.8); Lymphocytes % 4.6 %; Mean Corpuscular HGB Conc 30.5 g/dL (30.0-36.0); Mean Corpuscular Hemoglobin 26.5 pg (28.0-34.0); Mean Corpuscular Volume 86.8 fl (81-99); Mean Platelet Volume 9.3 fL (7.4-10.4); Monocytes # 0.1 10^3/uL (0.2-0.9); Monocytes % 1.1 %; Neutrophils # 7.99 10^3/uL (1.8-7.7); Neutrophils % 93.6 %; Nucleated Red Blood Cells % 0 %; Platelet Count 359 10^3/cmm (130-400); Red Blood Count 4.08 10^6/uL (4.1-5.3); Red Cell Distribution Width 17.7 % (12.1-15.1); White Blood Count 8.5 10^3/uL (4.0-10.0)
[2023-01-03 19:18] LABS: Alanine Aminotransferase 12 U/L (0-33); Albumin Level 3.8 g/dL (3.5-5.2); Alkaline Phosphatase 123 U/L (35-105); Blood Urea Nitrogen 7 mg/dL (6-20); Calcium 9.4 mg/dL (8.5-10.5); Carbon Dioxide 20 mmol/L (22-29); Chloride 99 mmol/L (98-107); Creatinine Clr Calc Pharmacy 150.3129; Globulin 2.8 g/dL (1.3-4.6); Glucose 199 mg/dL (65-115); Osmolality Calculated 290 mOsm/kg (285-295); Sodium 138 mmol/L (136-145); Total Bilirubin 0.2 mg/dL (0.15-1.2); Total Protein 6.6 g/dL (6.6-8.7)
[2023-01-03 19:21] LABS: Anion Gap 23.1 (5-19); Aspartate Amino Transferase 16 U/L (0-32); Potassium 4.1 mmol/L (3.5-5.1)
[2023-01-03 19:45] VITALS: BP 121/71; PULSE 112; RESP 22; TEMP 36.9; O2SAT 98
== END 2023-01-03 19:46 | disposition home or self-care (01) ==
PROVIDERS: Emergency Provider Emergency Medicine; PCP Family Medicine
DX: R06.02 Shortness of breath (principal); T45.1X5A Adverse effect of antineoplastic and immunosuppressive drugs, initial encounter; Z87.891 Personal history of nicotine dependence; Z85.038 Personal history of other malignant neoplasm of large intestine; Z85.05 Personal history of malignant neoplasm of liver
CPT/HCPCS: 36415; 71045; 80053; 85025; 96374; 96375; 99284; J1100; J1200

== ENCOUNTER 2023-01-04 08:31 | Inpatient (IN) | payer MEDICAID, SELFPAY ==
[2023-01-04] VITALS (44 sets, daily range): BP systolic 110–142; BP diastolic 71–83; PULSE 105–127; RESP 16–20; TEMP 36.6–37.3; O2SAT 92–100; BMI 22.4
--- NOTE | 2023-01-04 08:38 | ECG_ITS ---
[facility] Test Date: 2023-01-04 Pat Name: Judi Lam Department: Room: Gender: Female Soot [place]lower: : 1970 Requested By: Alexi Arreola Order Number: [id number] Marissa MD: Stefani Gonzalez M.D. Measurements Intervals [place] Rate: 114 P: 50 ID: [id number] QRS: 59 QRSD: 70 T: 57 QT: 325 QTc: 448 Interpretive Statements SINUS TACHYCARDIA NONSPECIFIC T-WAVE ABNORMALITY ABNORMAL RHYTHM ECG INTERPRETATION BASED ON A DEFAULT AGE OF 40 YEARS Compared to ECG 11/26/2022 16:31:16 T-wave abnormality now present Sinus rhythm no longer present Electronically Signed On 01-05-2023 1:14:38 CDT by Stefani Gonzalez M.D. [id number]
--- NOTE | 2023-01-04 08:40 | ED_ITS ---
HPI - Chest Pain General: Chief Complaint: Chest Pain Stated Complaint: Chest Pain, SOB Time Seen by Provider: 01/04/23 08:37 Source: patient Mode of arrival: wheelchair History of Present Illness: 52-year-old female was seen yesterday for shortness of breath and chest comfort was thought to be due to albuterol. She was back at the oncology clinic today and Dr. Mayberry evaluated her in the waiting room she was having chest pain and significant shortness of breath although her sats were normal. He is quite concerned and directed her back to the emergency room. She has not used any further albuterol. She has a known history of disseminated: CA. complaint: chest pain Onset (ago): day(s) (1) Timing of current episode: constant Prior episodes: Yes Onset: during rest Pain location: substernal Pain radiation: none Quality: sharp Relieving factors: nothing Exacerbating factors: nothing Associated symptoms: Reports dyspnea; Deny abdominal pain, diaphoresis, fever(s), leg edema, nausea, palpitations, sense of impending doom, syncope or vomiting Review of Systems Const: Reports: fatigue and malaise; Denies: fever(s), chills or diaphoresis ENMT: Denies: throat pain, ear or mastoid pain, nasal discharge or nasal congestion Card: Reports: chest pain; Denies: palpitations or syncope Resp: Reports: dyspnea GI: Denies: abdominal pain, nausea or vomiting : Denies: flank pain, difficulty voiding, dysuria, urinary frequency or urinary urgency Skin/Breast: Denies: rash or pruritus PFS ED PFSH: Medical History Colon cancer metastasized to liver Diverticulitis Surgical History History of colon surgery 09/2022 ostomy placed. Family History Other CAD (coronary artery disease) Cancer Hyperlipidemia Hypertension Lung disease Psychiatric illness Stroke Denies family history of Diabetes Clotting disorder Dementia Chronic kidney disease (CKD) Suicide Anesthesia complication Bleeding disorder Social History Smoking and tobacco status: former smoker Quit status (tobacco): has quit using tobacco Former quit date comment: smoked x 10 years Alcohol intake: never Physical Exam Const: GENERAL APPEARANCE: cooperative and comfortable ORIENTATION/CONSCIOUSNESS: Yes awake, Yes oriented to person, Yes oriented to place and Yes oriented to time HENMT: COMMON NORMALS: normocephalic, atraumatic and hearing grossly normal bilaterally HEAD & SCALP: normocephalic and atraumatic Resp: COMMON NORMALS: normal respiratory effort, No retractions, No use of accessory muscles and clear to auscultation bilaterally AUSCULTATION: clear to auscultation bilaterally Cardio: COMMON NORMALS: regular rate, regular rhythm and No murmurs present (Cardio) RATE: regular rate RHYTHM: regular rhythm GI: COMMON NORMALS: Soft to palpation and No hepatosplenomegaly present AUSCULTATION: Yes normoactive bowel sounds PALPATION: Yes Soft to palpation, No Tenderness to palpation present (GI), No Guarding due to palpation present (GI) and Yes No hepatosplenomegaly present Extremity: COMMON NORMALS: normal to inspection, capillary refill normal, no clubbing, cyanosis or edema, no calf tenderness and no pedal edema Neuro: SENSORIUM/ORIENTATION: Yes oriented to person, Yes oriented to place and Yes oriented to time Skin: COMMON NORMALS: no rashes or lesions noted GENERAL SKIN EXAM: no rashes or lesions noted Course Vital Signs: Vital signs: Vital Signs Temperature 98.4 F 01/04/23 08:35 Pulse Rate 117 H 01/04/23 10:30 Respiratory Rate 16 01/04/23 09:55 Blood Pressure 121/81 01/04/23 11:30 Pulse Oximetry 99 01/04/23 12:00 Oxygen Delivery Me thod Room Air 01/04/23 09:43 MDM - Chest Pain Medical Decision Making Labs and imaging reviewed. CTA shows PE with evidence of right heart strain no saddle emboli. Will start on heparin. Also shows infiltrate with mucous plugging started on Zosyn. Additionally there are hilar lymph nodes that may need to be evaluated further that are suspicious for possible metastasis according to the radiologist. Cultures done discussed with hospitalist orders written also have ordered a echocardiogram. Dr. Mayberry called prior to the patient's arrival contacted him and informed him of findings and disposition for the patient. Medical Records I reviewed the patient's medical records. Lab Data I reviewed the patient's lab results. 01/04/23 11:36 01/04/23 09:10 Radiology Impressions Chest CTA 01/04/23 08:41 IMPRESSION: 1. Multiple filling defects in the LEFT lower lobe segmental and subsegmental pulmonary arteries compatible with pulmonary embolus. 2. Suggestion of mild RIGHT heart strain. 3. Bronchovascular thickening about the LEFT hilum/infrahilar lung with lymphadenopathy measuring 13 x 13 mm. 4. Mucus plugging LEFT lower lobe with cystic bronchiectasis and associated infiltrates. Recommend follow-up with bronchoscopy. 5. Small amount of infiltrate in the lingula. 6. No other acute findings. Notified Alexi Aranda DO at 01/04/2023 10:41 AM. Laboratory Results WBC 11.6 10^3/uL (4.0-10.0) H 01/04/23 09:10 RBC 4.33 10^6/uL (4.1-5.3) 01/04/23 09:10 Hgb 11.5 g/dL (11.5-15.3) 01/04/23 09:10 Hct 36.6 % (37.0-47.0) L 01/04/23 09:10 MCV 84.5 fl (81-99) 01/04/23 09:10 MCH 26.6 pg (28.0-34.0) L 01/04/23 09:10 MCHC 31.4 g/dL (30.0-36.0) 01/04/23 09:10 RDW 17.5 % (12.1-15.1) H 01/04/23 09:10 Plt Count 306 10^3/cmm (130-400) 01/04/23 11:36 MPV 8.7 fL (7.4-10.4) 01/04/23 09:10 Neut % (Auto) 96.7 % 01/04/23 09:10 Lymph % (Auto) 2.1 % 01/04/23 09:10 [place] % (Auto) 0.3 % 01/04/23 09:10 Eos % (Auto) 0.0 % 01/04/23 09:10 Baso % (Auto) 0.2 % 01/04/23 09:10 Neut # (Auto) 11.18 10^3/uL (1.8-7.7) H 01/04/23 09:10 Lymph # (Auto) 0.2 10^3/uL (0.8-4.8) L 01/04/23 09:10 [place] # (Auto) 0.0 10^3/uL (0.2-0.9) L 01/04/23 09:10 Eos # (Auto) 0.0 10^3/uL (0.0-0.8) 01/04/23 09:10 Baso # (Auto) 0.0 10^3/uL (0.0-0.1) 01/04/23 09:10 Nucleated RBC % (auto) 0 % 01/04/23 09:10 Nucleated RBCs # 0.0 /100WBC 01/04/23 09:10 APTT 26.8 SECONDS (23.9-36.7) 01/04/23 11:36 Sodium 136 mmol/L (136-145) 01/04/23 09:10 Potassium 4.0 mmol/L (3.5-5.1) 01/04/23 09:10 Chloride 101 mmol/L (98-107) 01/04/23 09:10 Carbon Dioxide 21 mmol/L (22-29) L 01/04/23 09:10 Anion Gap 18.0 (5-19) 01/04/23 09:10 BUN 7 mg/dL (6-20) 01/04/23 09:10 Creatinine 0.4 mg/dL (0.5-0.9) L 01/04/23 09:10 GFR Calculation 169.0 mL/min (90-130) H 01/04/23 09:10 Glucose 128 mg/dL (65-115) H 01/04/23 09:10 Calculated Osmolality 282 mOsm/kg (285-295) L 01/04/23 09:10 Calcium 9.4 mg/dL (8.5-10.5) 01/04/23 09:10 Total Bilirubin 0.7 mg/dL (0.15-1.2) 01/04/23 09:10 AST 11 U/L (0-32) 01/04/23 09:10 ALT 10 U/L (0-33) 01/04/23 09:10 Alkaline Phosphatase 138 U/L (35-105) H 01/04/23 09:10 Total Protein 7.0 g/dL (6.6-8.7) 01/04/23 09:10 Albumin 3.7 g/dL (3.5-5.2) 01/04/23 09:10 Globulin 3.3 g/dL (1.3-4.6) 01/04/23 09:10 Discharge Plan Discharge Patient Disposition: Admitted As Inpatient Clinical Impression: Pulmonary embolism, Colon cancer metastasized to liver, Pneumonia Condition: Stable Prescriptions: No Action montelukast [Singulair] 10 mg tablet 10 mg PO DAILY Qty: 30 2RF morphine 60 mg tablet extended release 60 mg PO Q12H 30 Days Qty: 60 0RF morphine 15 mg tablet 15 mg PO .COMPLEX PRN (Reason: pain) 7 Days Qty: 30 0RF Rx Instructions: 15 mg orally Q4-6H PRN; fentanyl 50 mcg/hr patch 72 hour 1 patch transdermal Q72H 15 Days Qty: 5 0RF promethazine 25 mg tablet 25 mg PO Q6H PRN (Reason: nausea and vomiting) Qty: 20 0RF oxycodone 5 mg tablet 5 mg PO Q6H ondansetron 4 mg Tablet,Disintegrating 4 mg PO Q6H PRN (Reason: Nausea) naloxone 4 mg/actuation Siren,Non-Aerosol 4 mg INTRANASAL Q2M PRN (Reason: Opiate Reversal) Rx Instructions: spray 1 dose into ONE nostril; alternate nostrils w each dose until help arrives metoclopramide HCl [Reglan] 10 mg tablet 10 mg PO Q6H PRN (Reason: nausea and vomiting) Qty: 30 0RF prochlorperazine maleate [Compazine] 10 mg tablet 10 mg PO Q4H PRN (Reason: Mild Nausea) Qty: 30 3RF lorazepam 1 mg tablet 0.5 - 1 mg PO Q6H PRN (Reason: Severe Nausea) Qty: 30 3RF Referrals: Clarice Perez MD [Primary Care Provider] - Coding Level of Care Code ED 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
--- NOTE | 2023-01-04 08:41 | CT_ITS ---
WS: [id number] CTA OF THE CHEST WITH PULMONARY EMBOLISM PROTOCOL TECHNIQUE: High-resolution contrast enhanced CTA of the chest with coronal and sagittal reformatted i mages with pulmonary embolism protocol. MIP images are also reviewed. CLINICAL INFORMATION: tachycardia/dyspnea COMPARISON: None. DLP: 184.[address] scans at [facility] use at least one of these dose optimization techniques: automated e xposure control; mA and/or kV adjustment per patient size (includes targeted exams where dose is matc hed to clinical indication); or iterative reconstruction. FINDINGS: Proximal main pulmonary arteries are normal. Filling defects in the LEFT lower lobe segmental and sub segmental pulmonary consistent with acute pulmonary embolus. Suggestion of mild RIGHT heart strain. Bronchovascular thickening along the LEFT infrahilum with LEFT infrahilar nodule/adenopathy measuring 13 x 13 mm. This can be further evaluated with bronchoscopy. Bronchovascular thickening LEFT infrahi lum. Mucus plugging with cystic bronchiectasis LEFT lower lobe with associated infiltrates. Recommend correlation for pneumonia. Small amount of infiltrate in the lingula. RIGHT lung is well aerated. Normal caliber thoracic aorta. No mediastinal lymphadenopathy.Adrenal glands are normal. Small splenu le. Cholecystectomy clips. Hepatomegaly. Normal caliber upper abdominal aorta. Small esophageal hiata l hernia. Mild thoracic kyphosis. CT/CT angio chest PE protcl [id number] IMPRESSION: 1. Multiple filling defects in the LEFT lower lobe segmental and subsegmental pulmonary arteries compatible with pulmonary embolus. 2. Suggestion of mild RIGHT heart strain. 3. Bronchovascular thickening about the LEFT hilum/infrahilar lung with lympha denopathy measuring 13 x 13 mm. 4. Mucus plugging LEFT lower lobe with cystic bronchiectasis and associated in filtrates. Recommend follow-up with bronchoscopy. 5. Small amount of infiltrate in the lingula. 6. No other acute findings. Notified Alexi Aranda DO at 01/04/2023 10:41 AM.
[2023-01-04 09:35] LABS: Alanine Aminotransferase 10 U/L (0-33); Albumin Level 3.7 g/dL (3.5-5.2); Alkaline Phosphatase 138 U/L (35-105); Aspartate Amino Transferase 11 U/L (0-32); Blood Urea Nitrogen 7 mg/dL (6-20); Calcium 9.4 mg/dL (8.5-10.5); Carbon Dioxide 21 mmol/L (22-29); Chloride 101 mmol/L (98-107); Globulin 3.3 g/dL (1.3-4.6); Glucose 128 mg/dL (65-115); Osmolality Calculated 282 mOsm/kg (285-295); Sodium 136 mmol/L (136-145); Total Bilirubin 0.7 mg/dL (0.15-1.2)
[2023-01-04 09:36] LABS: Creatinine Clr Calc Pharmacy 150.3129
[2023-01-04 09:48] LABS: Basophils % 0.2 %; Hematocrit 36.6 % (37.0-47.0); Hemoglobin 11.5 g/dL (11.5-15.3); Lymphocytes # 0.2 10^3/uL (0.8-4.8); Lymphocytes % 2.1 %; Mean Corpuscular HGB Conc 31.4 g/dL (30.0-36.0); Mean Corpuscular Hemoglobin 26.6 pg (28.0-34.0); Mean Corpuscular Volume 84.5 fl (81-99); Mean Platelet Volume 8.7 fL (7.4-10.4); Monocytes % 0.3 %; Neutrophils # 11.18 10^3/uL (1.8-7.7); Neutrophils % 96.7 %; Nucleated Red Blood Cells % 0 %; Platelet Count 334 10^3/cmm (130-400); Red Blood Count 4.33 10^6/uL (4.1-5.3); Red Cell Distribution Width 17.5 % (12.1-15.1); White Blood Count 11.6 10^3/uL (4.0-10.0)
[2023-01-04 09:52] LABS: Slide Review Slide Review Perform
[2023-01-04] MEDS: morphine 4 mg/mL SDV 1 mL IVP ×2 (09:55→12:57)
[2023-01-04] MEDS: ondansetron 2 mg/ML SDV 2 mL 4 MG IVP (09:55)
[2023-01-04] MEDS: iohexol 350 mg/mL 500 mL Btl (per mL) IV (10:14)
[2023-01-04] MEDS: heparin 5,000 unit/mL INJ 1 mL IV (11:47)
[2023-01-04] MEDS: heparin drip 25,000 UNIT/500 ML PREMIX 16.64 UNIT IV (11:50)
[2023-01-04 11:55] LABS: Platelet Count 306 10^3/cmm (130-400)
[2023-01-04 12:04] LABS: Partial Thromboplastin Time 26.8 SECONDS (23.9-36.7)
[2023-01-04] MEDS: piperacillin-tazobactam 3.375 GM in sodium chloride 0.9% (plus) 50 ML IV ×2 (12:58→20:33)
[2023-01-04] MEDS: sodium chloride 0.9% 1,000 ML 999 ML IV (12:58)
--- NOTE | 2023-01-04 13:46 | USCV_ITS ---
Judi Lam Age: 52 Gender: F : 1970 Exam Date: 01/04/2023 14:28 Ordering Phys: Michael Thorpe MD Technologist: PARKER Exam Location: [facility] [place] Indication: Leg pain. Has PE currently HISTORY: Lower extremity pain. Pulmonary embolism. PROCEDURES: Venous duplex imaging was performed in bilateral lower extremities. The following venous structures were evaluated: common femoral vein, profunda vein, proximal portion of the greater saphenous vein, superficial femoral vein, and the popliteal vein. In addition, the posterior tibial and peroneal trunk were evaluated. Serial compression, augmentation maneuvers, and spectral Doppler flow evaluation were performed. FINDINGS: No evidence of DVT seen in any vessel visualized at this time. CONCLUSIONS No evidence of right lower extremity DVT. No evidence of left lower extremity DVT. Mahesh Ortiz MD (Electronically Signed) Final Date: 04 Jan 2023 15:29 S
--- NOTE | 2023-01-04 13:51 | PM.HP ---
Providers/Chief Complaint Admitting Physician: Michael Thorpe MD Primary Care Provider: Clarice Perez MD Chief Complaint: Chest Pain, SOB History of Present Illness Judi Lam is a 52 year old female with past medical history of Ca colon with liver mets currently on chemotherapy last session done yesterday, came in today with chief complaint of worsening shortness of breath, as well as chest pain, she denied any fever chills, she has history of chronic cough, denied any sputum production, denied any worsening of cough from the baseline, CTA chest showed:Multiple filling defects in the LEFT lower lobe segmental and subsegmental pulmonary arteries compatible with pulmonary embolus.?mild RIGHT heart strain. Small amount of infiltrate in the lingula. Lower extremity Doppler vein was negative for DVT. Pertinent labs: WBC 11.6, H&H:, PLT : 306 , serum sodium 136, serum potassium 4, BUN 7, serum creatinine 0.4, Patient was started on heparin drip. She was also started on Vanco and Zosyn for possible pneumonia. Review of Systems General: Reports: 10 or more systems reviewed and unremarkable except in HPI and below Const: Denies: fever(s), chills, body aches, change in appetite or diaphoresis Card: Denies: palpitations, edema, swelling of feet/ankles, dyspnea on exertion, orthopnea or leg pain with exertion Resp: Reports: dyspnea; Denies: productive cough, wheezing or pain on inspiration GI: Denies: abdominal pain, nausea, vomiting, diarrhea or constipation : Denies: flank pain Musc: Denies: back pain, extremity pain or extremity swelling Neuro: Denies: headache(s) Medications/Allergies Home Medications Medication Instructions Recorded Confirmed Last Taken Type naloxone 4 mg/actuation nasal spray 4 mg intranasal Q2M PRN Opiate 09/25/22 01/04/23 Unknown History Reversal ondansetron 4 mg disintegrating 4 mg PO Q6H PRN Nausea 09/25/22 01/04/23 Unknown History tablet metoclopramide HCl 10 mg tablet 10 mg PO Q6H PRN nausea and 11/06/22 01/04/23 Unknown Rx (Reglan) vomiting #30 tabs promethazine 25 mg tablet 25 mg PO Q6H PRN nausea and 11/13/22 01/04/23 Unknown Rx vomiting #20 tabs morphine 60 mg tablet,extended 60 mg PO Q12H 30 days #60 tabs 12/14/22 01/04/23 01/04/23 Rx release lorazepam 1 mg tablet 0.5 - 1 mg PO Q6H PRN Severe 12/21/22 01/04/23 Unknown Rx Nausea #30 tabs prochlorperazine maleate 10 mg 10 mg PO Q4H PRN Mild Nausea #30 12/21/22 01/04/23 Unknown Rx tablet (Compazine) tabs montelukast 10 mg tablet 10 mg PO DAILY #30 tabs 12/27/22 01/04/23 01/04/23 Rx (Singulair) morphine 15 mg immediate release 15 mg PO .COMPLEX PRN pain 1 week 12/27/22 01/04/23 01/04/23 Rx tablet #30 tabs fentanyl 50 mcg/hr transdermal 1 patch transdermal Q72H 15 days 12/28/22 01/04/23 01/02/23 Rx patch #5 ea oxycodone 5 mg tablet 5 mg PO Q6H 01/04/23 01/04/23 Unknown History Allergies Allergy/AdvReac Type Severity Reaction Status Date / Time tramadol [From Ultram] Allergy ALGY-Anaphy Verified 01/04/23 09:15 laxis PFSH Acute PFSH: Medical History Colon cancer metastasized to liver Diverticulitis Surgical History History of colon surgery 09/2022 ostomy placed. Family History Other CAD (coronary artery disease) Cancer Hyperlipidemia Hypertension Lung disease Psychiatric illness Stroke Denies family history of Diabetes Clotting disorder Dementia Chronic kidney disease (CKD) Suicide Anesthesia complication Bleeding disorder Social History Smoking and tobacco status: former smoker Quit status (tobacco): has quit using tobacco Former quit date comment: smoked x 10 years Alcohol intake: never Vitals/I&O/Wt Last Vital Signs Temp 98.4 F 01/04/23 08:35 Pulse 117 H 01/04/23 10:30 Resp 16 01/04/23 09:55 BP 121/81 01/04/23 11:30 Pulse Ox 100 01/04/23 12:50 O2 Del Method Room Air 01/04/23 09:43 Weight last 48 hrs Weight 59.421 kg Physical Exam Const: COMMON NORMALS: patient oriented x3 HENMT: COMMON NORMALS: normocephalic and atraumatic HEAD & SCALP: normocephalic and atraumatic Resp: COMMON NORMALS: clear to auscultation bilaterally AUSCULTATION: clear to auscultation bilaterally Cardio: COMMON NORMALS: regular rate, regular rhythm, S1 normal heart sound present, S2 normal heart sound present, No gallops present (Cardio), No murmurs present (Cardio), No rub (Cardio) and Peripheral pulses 2+ throughout RATE: regular rate RHYTHM: regular rhythm HEART SOUNDS: S1 normal heart sound present and S2 normal heart sound present PERIPHERAL PULSES: Peripheral pulses 2+ throughout GI: COMMON NORMALS: Normal to inspection, nondistended, normoactive bowel sounds present, Soft to palpation, non-tender, No hepatosplenomegaly present and no masses AUSCULTATION: Yes normoactive bowel sounds PALPATION: Yes Soft to palpation and Yes No hepatosplenomegaly present RECTAL EXAM: deferred Extremity: COMMON NORMALS: no clubbing, cyanosis or edema and no pedal edema Neuro: COMMON NORMALS: patient oriented x3 Data 01/04/23 11:36 01/04/23 09:10 Micro: Microbiology 01/04/23 11:36 Blood Culture - Preliminary Blood SPECIMEN COLLECTED 01/04/23 11:36 Blood Culture - Preliminary Blood SPECIMEN COLLECTED A&P Assessment and plan (1) Pulmonary embolism: (2) Shortness of breath: (3) Pneumonia: (4) Colon cancer metastasized to liver: Plan 52 year old female with past medical history of Ca colon with liver mets currently on chemotherapy last session done yesterday, came in today with chief complaint of worsening shortness of breath, as well as chest pain, she denied any fever chills, she has history of chronic cough, denied any sputum production, denied any worsening of cough from the baseline. Currently she is being managed for. Assessment: Shortness of breath secondary to: Acute pulmonary embolism as well as possible underlying pneumonia. CTA chest showed:Multiple filling defects in the LEFT lower lobe segmental and subsegmental pulmonary arteries compatible with pulmonary embolus.?mild RIGHT heart strain. Small amount of infiltrate in the lingula. Lower extremity Doppler vein was negative for DVT. Follow blood culture Sputum Gram stain culture MRSA PCR Urine Legionella antigen Bacterial antigen panel Procalcitonin Currently she is on heparin drip, will plan to switch her to p.o. Eliquis on discharge. Patient will possibly be on long-term anticoagulation. Patient has been educated on benefits and side effects of anticoagulation, most important being bleeding. Currently she is on broad-spectrum antibiotic Vanco and Zosyn.Will plan to de-escalate antibiotics depending on the clinical course and lab findings CODE STATUS full code DVT prophylaxis: On therapeutic anticoagulation with heparin. Attestations Medical Necessity Statement*: Patient needs to be in hospital management of pulmonary embolism.Anticipated length of stay greater then 2 midnights Coding Level of Care Code Acute Code for [facility] Fwd Diagnoses Pulmonary embolism I26.99 Shortness of breath R06.02 Pneumonia J18.9 Colon cancer metastasized to liver C18.9; C78.7
[2023-01-04] MEDS: sodium chloride 0.9% 1,000 ML 75 ML IV (14:33)
[2023-01-04] MEDS: morphine 4 mg/mL SDV 1 mL 2 MG IVP ×2 (14:36→20:33)
--- NOTE | 2023-01-04 14:36 | PC.PHAR ---
PHARMACY TO DOSE - VANCOMYCIN With the patient's currents labs and vital results, the calculated dose for this patient is 1000mg every 8 hours for a predicted peak of 38.7 mcg/ml and a trough of 17.67 mcg/ml. Will draw a trough level prior to the 4th dose and make adjustments to the dose as indicated. Pharmacy will also continue to monitor the patient's renal function daily and make adjustments to the vancomycin and other renally dosed medications as indicated. Please let us know if there is anything else we can do for you. Thanks, Claudio Pelletier, Pharm.D
[2023-01-04] MEDS: vancomycin 1,000 MG in sodium chloride 0.9% 250 ML 250 MG IV ×2 (15:32→23:16)
[2023-01-04] MEDS: morphine ER (12 HR) 30 mg tablet 60 MG PO (17:22)
[2023-01-04 18:38] LABS: Partial Thromboplastin Time 62.5 SECONDS (23.9-36.7)
[2023-01-04 23:57] LABS: Partial Thromboplastin Time 96.9 SECONDS (23.9-36.7)
[2023-01-05] VITALS (14 sets, daily range): BP systolic 127–159; BP diastolic 75–90; PULSE 74–101; RESP 4–18; TEMP 36.4–36.9; O2SAT 97–99
[2023-01-05] MEDS: morphine 4 mg/mL SDV 1 mL 2 MG IVP ×4 (02:10→20:30)
[2023-01-05] MEDS: sodium chloride 0.9% 1,000 ML 75 ML IV (03:33)
[2023-01-05] MEDS: morphine ER (12 HR) 30 mg tablet 60 MG PO ×2 (04:49→17:21)
[2023-01-05] MEDS: piperacillin-tazobactam 3.375 GM in sodium chloride 0.9% (plus) 50 ML IV ×3 (04:50→20:23)
[2023-01-05 06:41] LABS: Basophils % 0.1 %; Eosinophils # 0.1 10^3/uL (0.0-0.8); Eosinophils % 0.8 %; Hematocrit 29.7 % (37.0-47.0); Hemoglobin 9.2 g/dL (11.5-15.3); Lymphocytes # 0.8 10^3/uL (0.8-4.8); Lymphocytes % 8.6 %; Mean Corpuscular Hemoglobin 26.5 pg (28.0-34.0); Mean Corpuscular Volume 85.6 fl (81-99); Monocytes # 0.5 10^3/uL (0.2-0.9); Monocytes % 6.2 %; Neutrophils # 7.31 10^3/uL (1.8-7.7); Neutrophils % 83.6 %; Nucleated Red Blood Cells % 0 %; Platelet Count 234 10^3/cmm (130-400); Red Blood Count 3.47 10^6/uL (4.1-5.3); Red Cell Distribution Width 17.7 % (12.1-15.1); White Blood Count 8.7 10^3/uL (4.0-10.0)
[2023-01-05 06:54] LABS: Partial Thromboplastin Time 56.7 SECONDS (23.9-36.7)
[2023-01-05 06:57] LABS: Alanine Aminotransferase 17 U/L (0-33); Albumin Level 2.8 g/dL (3.5-5.2); Alkaline Phosphatase 105 U/L (35-105); Aspartate Amino Transferase 28 U/L (0-32); Blood Urea Nitrogen 6 mg/dL (6-20); Carbon Dioxide 20 mmol/L (22-29); Chloride 102 mmol/L (98-107); Globulin 2.7 g/dL (1.3-4.6); Glomerular Filtration Rate 235.5 mL/min (90-130); Glucose 88 mg/dL (65-115); Osmolality Calculated 269 mOsm/kg (285-295); Sodium 131 mmol/L (136-145); Total Bilirubin 0.4 mg/dL (0.15-1.2); Total Protein 5.5 g/dL (6.6-8.7)
[2023-01-05 07:31] LABS: Procalcitonin 60.67 ng/mL (0-0.5)
[2023-01-05] MEDS: vancomycin 1,000 MG in sodium chloride 0.9% 250 ML 250 MG IV ×3 (08:21→22:28)
[2023-01-05] MEDS: montelukast sodium 10 mg Tablet PO (08:22)
--- NOTE | 2023-01-05 10:41 | PC.CHAP ---
Pastoral Care Encounter/Spiritual Assessment Type of Contact [] Declined regional ehs manager visit [] Patient/Family/Request visit [] Outpatient visit [] Follow-up visit [] Physician referral [] Code/Alert [x] Routine visit [] Staff referral [] Actively dying [] Patient sleeping x] Family support [] [] Out of room [] Palliative care [] [] Receiving care in room [] Pre-surgical visit [] Trauma [] Long length of stay [] ICU visit [] Other: Relational/Emotional Strength [x] Patient feels connected with others/family/visitors/staff [] Distress [] Loneliness/isolation [] Abandonment Spirituality of Patient [x] Person of Margaret [] Attends Orthodoxy of their Margaret [x] Believes in Prayer [x] Reads Bible or Congregational materials [] There are Spiritual issues to be addressed Environmental Adviser Interventions [x] Prayer []x Active listening []x Non-anxious presence [x] Spiritual/emotional support [] Crisis/trauma care [x] Spiritual counseling [] Bereavement support [] Provided bereavement packet [] Provided Bible/devotional materials [x] Provided toy/stuffed animal, coloring book to patient or family member [] Provided Communion [] Anointing/[place] [] Salvation [x] Completed spiritual assessment [] Other: Impact on Illness or Injury [] Angry [] Fearful [] Anxious [] Often cries [] Exhaustion [] Unable to work [] Unable to attend rastafari [] Unable to walk/stand [] Unable to read [] Unable to drive [] Unable to eat/drink [] Unable to sleep [] Unable to be with family [] Patient intubated [] Other: Summary wonderful lady with alots os\f pain Time spent with patient 15 min
--- NOTE | 2023-01-05 12:28 | P.PN_ITS ---
Subjective Subjective: Patient was seen and examined this morning, she was complaining of chest pain likely MSK .Currently she is saturating well on room air.Has been afebrile. Medications: Medication Review Details: Generic Name Dose Route Start Last Admin Trade Name Freq PRN Reason Stop Dose Admin Heparin Sodium (Po rcine) 0 unit 01/04/23 11:03 01/04/23 11:47 Heparin 5,000 Un it/Ml Inj 1 Ml IV 3,000 unit PRN PRN Administration Heparin weight-ba se protocol Protocol Sodium Chloride 1,000 mls @ 75 ml s/hr 01/04/23 13:45 01/05/23 03:33 Sodium Chloride 0.9% IV 75 mls/hr .[id number] FABIOLA Administration Piperacillin Sod/T azobactam 50 mls @ 12.5 mls /hr 01/04/23 21:00 01/05/23 10:20 Sod 3.375 gm/ So dium Chloride IV Infused Q8H FABIOLA Infusion Protocol Vancomycin HCl 1,0 00 mg/ 250 mls @ 250 mls /hr 01/04/23 15:00 01/05/23 10:20 Sodium Chloride IV Infused Q8H FABIOLA Infusion Montelukast Sodium 10 mg 01/05/23 09:00 01/05/23 08:22 Montelukast Sodi um 10 Mg Tablet PO 10 mg DAILY FABIOLA Administration Morphine Sulfate 60 mg 01/04/23 14:00 01/05/23 04:49 Morphine Er (12 Hr) 30 Mg Tablet PO 60 mg Q12H FABIOLA Administration Morphine Sulfate 2 mg 01/04/23 14:26 01/05/23 08:22 Morphine 4 Mg/Ml Sdv 1 Ml IVP 2 mg Q4H PRN Administration SEVERE PAIN Vitals/I&O/Wt Last Vital Signs Temp 97.5 F L 01/05/23 11:27 Pulse 79 01/05/23 11:27 Resp 18 01/05/23 11:27 BP 130/75 01/05/23 11:27 Pulse Ox 97 01/05/23 11:27 O2 Del Method Room Air 01/05/23 11:27 O2 Flow Rate 2 01/04/23 20:00 01/04/23 01/05/23 01/05/23 22:59 06:59 14:59 Intake Total 370 / 1420 1612.429 / 3032.429 565.745 / 565.745 Output Total 650 / 650 Balance -280 / 770 1612.429 / 2382.429 565.745 / 565.745 Weight last 48 hrs Weight 65.998 kg Weight 59.421 kg Physical Exam Const: COMMON NORMALS: patient oriented x3 HENMT: COMMON NORMALS: normocephalic and atraumatic HEAD & SCALP: normocephalic and atraumatic Resp: COMMON NORMALS: clear to auscultation bilaterally AUSCULTATION: clear to auscultation bilaterally Cardio: COMMON NORMALS: regular rate, regular rhythm, S1 normal heart sound present, S2 normal heart sound present, No gallops present (Cardio), No murmurs present (Cardio), No rub (Cardio) and Peripheral pulses 2+ throughout RATE: regular rate RHYTHM: regular rhythm HEART SOUNDS: S1 normal heart sound present and S2 normal heart sound present PERIPHERAL PULSES: Peripheral pulses 2+ throughout GI: COMMON NORMALS: Normal to inspection, nondistended, normoactive bowel sounds present, Soft to palpation, non-tender, No hepatosplenomegaly present and no masses AUSCULTATION: Yes normoactive bowel sounds PALPATION: Yes Soft to palpation and Yes No hepatosplenomegaly present RECTAL EXAM: deferred Extremity: COMMON NORMALS: no clubbing, cyanosis or edema and no pedal edema Neuro: COMMON NORMALS: patient oriented x3 Data 01/05/23 06:35 01/05/23 06:35 Micro: Microbiology 01/04/23 11:36 Blood Culture - Preliminary Blood NEGATIVE TO DATE 01/04/23 11:36 Blood Culture - Preliminary Blood NEGATIVE TO DATE 01/04/23 11:25 Gram Stain - Final Sputum - Expectorated Sputum Sputum Culture - Preliminary Gram Negative Rods A&P Assessment and plan (1) Pulmonary embolism: (2) Shortness of breath: (3) Pneumonia: (4) Colon cancer metastasized to liver: Plan 52 year old female with past medical history of Ca colon with liver mets currently on chemotherapy last session done yesterday, came in today with chief complaint of worsening shortness of breath, as well as chest pain, she denied any fever chills, she has history of chronic cough, denied any sputum production, denied any worsening of cough from the baseline. Currently she is being managed for. Assessment: Shortness of breath secondary to: Acute pulmonary embolism as well as possible underlying pneumonia. CTA chest showed:Multiple filling defects in the LEFT lower lobe segmental and subsegmental pulmonary arteries compatible with pulmonary embolus.?mild RIGHT heart strain. Small amount of infiltrate in the lingula. Lower extremity Doppler vein was negative for DVT. Follow blood culture Sputum Gram stain and culture: GNR : Pending identification. MRSA PCR: Urine Legionella antigen: Negative Bacterial antigen panel: Negative Procalcitonin: 60---> Should be interpreted carefully in the presence of malignancy. Repeat Procalcitonin: She was on heparin drip,switched to eliquis,.Patient will possibly be on long- term anticoagulation. Patient has been educated on benefits and side effects of anticoagulation, most important being bleeding. Currently she is on broad-spectrum antibiotic Vanco and Zosyn.Will plan to de- escalate antibiotics depending on the clinical course and lab findings CODE STATUS full code DVT prophylaxis: On therapeutic anticoagulation with heparin. Attestations Medical Necessity Statement*: needs to be in hospital for I.V Abxs Coding Level of Care Code Acute Code for g Fwd Diagnoses Pulmonary embolism I26.99 Shortness of breath R06.02 Pneumonia J18.9 Colon cancer metastasized to liver C18.9; C78.7
[2023-01-05] MEDS: apixaban 5 mg Tablet 10 MG PO ×2 (13:44→20:22)
[2023-01-05] MEDS: fentaNYL 50 mcg Patch 1 PATCH TRANSDERMA (13:45)
[2023-01-05] MEDS: ondansetron 2 mg/ML SDV 2 mL 4 MG IVP (13:46)
[2023-01-05 14:04] LABS: Partial Thromboplastin Time 30.2 SECONDS (23.9-36.7)
[2023-01-05 14:12] LABS: Vancomycin Trough 17.3 ug/mL (10-15)
[2023-01-06] VITALS (18 sets, daily range): BP systolic 133–163; BP diastolic 85–92; PULSE 74–100; RESP 16–23; TEMP 36.4–36.8; O2SAT 96–100
[2023-01-06] MEDS: morphine 4 mg/mL SDV 1 mL 2 MG IVP ×5 (00:42→23:21)
[2023-01-06] MEDS: ondansetron 2 mg/ML SDV 2 mL 4 MG IVP (00:45)
--- NOTE | 2023-01-06 02:31 | ECG_ITS ---
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 Measurements Intervals [place] Rate: 73 P: 52 RI: 147 QRS: 46 QRSD: 73 T: 34 QT: 411 QTc: 453 Interpretive Statements SINUS RHYTHM Compared to ECG 01/04/2023 08:34:44 Sinus tachycardia no longer present T-wave abnormality no longer present Electronically Signed On 01-06-2023 21:27:47 CDT by Julissa Quiros M.D. [id number]
--- NOTE | 2023-01-06 02:42 | PC.NURSE ---
Patient c/o of chest pain, stating that it hurts to breath. EKG taken. VSS. Dr. Herrera notified. Morphine x1 ordered.
[2023-01-06 03:25] LABS: Acinetobacter baumannii Not Detected (NOT DETECT); Bacteroides fragilis Not Detected (NOT DETECT); CTX-M Not Detected (NOT DETECT); Citrobacter Not Detected (NOT DETECT); Cronobacter sakazakii Not Detected (NOT DETECT); Enterobacter cloacae complex Not Detected (NOT DETECT); Enterobacter non cloacae Not Detected (NOT DETECT); Fusobacterium necrophorum Not Detected (NOT DETECT); Fusobacterium nucleatum Not Detected (NOT DETECT); Haemophilus influenzae Not Detected (NOT DETECT); IMP Resistance Gene Not Detected (NOT DETECT); KPC Resistance Gene Not Detected (NOT DETECT); Klebsiella pneumoniae group Not Detected (NOT DETECT); Morganella morganii Not Detected (NOT DETECT); NDM Resistance Gene Not Detected (NOT DETECT); Neisseria meningitidis Not Detected (NOT DETECT); OXA Resistance Gene Not Detected (NOT DETECT); Pan Candida Not Detected (NOT DETECT); Pan Gram-Positive Not Detected (NOT DETECT); Proteus mirabilis Detected (NOT DETECT); Pseudomonas aeruginosa Not Detected (NOT DETECT); Salmonella Not Detected (NOT DETECT); Serratia Not Detected (NOT DETECT); Serratia marcescens Not Detected (NOT DETECT); Stenotrophomonas maltophilia Not Detected (NOT DETECT); VIM Resistance Gene Not Detected (NOT DETECT)
[2023-01-06 03:54] LABS: Basophils % 0.4 %; Eosinophils # 0.2 10^3/uL (0.0-0.8); Eosinophils % 4.1 %; Hematocrit 31.5 % (37.0-47.0); Hemoglobin 9.8 g/dL (11.5-15.3); Lymphocytes # 0.9 10^3/uL (0.8-4.8); Lymphocytes % 17.3 %; Mean Corpuscular HGB Conc 31.1 g/dL (30.0-36.0); Mean Corpuscular Hemoglobin 26.3 pg (28.0-34.0); Mean Corpuscular Volume 84.5 fl (81-99); Mean Platelet Volume 9.4 fL (7.4-10.4); Monocytes # 0.5 10^3/uL (0.2-0.9); Monocytes % 10.3 %; Neutrophils # 3.47 10^3/uL (1.8-7.7); Neutrophils % 67.3 %; Nucleated Red Blood Cells % 0 %; Platelet Count 219 10^3/cmm (130-400); Red Blood Count 3.73 10^6/uL (4.1-5.3); Red Cell Distribution Width 17.2 % (12.1-15.1); White Blood Count 5.2 10^3/uL (4.0-10.0)
[2023-01-06 04:12] LABS: Alanine Aminotransferase 30 U/L (0-33); Alkaline Phosphatase 120 U/L (35-105); Anion Gap 13.7 (5-19); Aspartate Amino Transferase 48 U/L (0-32); Blood Urea Nitrogen 4 mg/dL (6-20); Calcium 8.4 mg/dL (8.5-10.5); Carbon Dioxide 22 mmol/L (22-29); Chloride 101 mmol/L (98-107); Globulin 2.8 g/dL (1.3-4.6); Glucose 85 mg/dL (65-115); Osmolality Calculated 272 mOsm/kg (285-295); Potassium 3.7 mmol/L (3.5-5.1); Sodium 133 mmol/L (136-145); Total Bilirubin 0.4 mg/dL (0.15-1.2); Total Protein 5.8 g/dL (6.6-8.7)
[2023-01-06 04:19] LABS: Procalcitonin 33.63 ng/mL (0-0.5)
[2023-01-06] MEDS: morphine ER (12 HR) 30 mg tablet 60 MG PO ×2 (05:25→15:42)
[2023-01-06] MEDS: piperacillin-tazobactam 3.375 GM in sodium chloride 0.9% (plus) 50 ML IV ×3 (05:26→20:17)
[2023-01-06] MEDS: vancomycin 1,000 MG in sodium chloride 0.9% 250 ML 250 MG IV ×2 (06:25→15:42)
[2023-01-06] MEDS: apixaban 5 mg Tablet 10 MG PO ×2 (09:27→20:17)
[2023-01-06] MEDS: acetaminophen 325 mg Tablet 650 MG PO (09:27)
[2023-01-06] MEDS: ALPRAZolam 0.5 mg Tablet 0.25 MG PO ×2 (09:28→18:05)
[2023-01-06] MEDS: montelukast sodium 10 mg Tablet PO (09:28)
--- NOTE | 2023-01-06 11:07 | PC.NURSE ---
Notified Dr. Thorpe of patient have some anxiety. Dr. Thorpe ordered Xanax 0.25 TID PRN.
--- NOTE | 2023-01-06 13:41 | PC.SOCIAL ---
Obtained choice for HOME, walker order sent to HOME
--- NOTE | 2023-01-06 17:43 | PM.PN ---
Subjective Subjective: Patient was seen and examined this morning, she was complaining some improvement in chest tightness, she also is complaining of anxiety, Xanax has been given. Medications: Medication Review Details: Generic Name Dose Route Start Last Admin Trade Name Freq PRN Reason Stop Dose Admin Acetaminophen 650 mg 01/04/23 13:43 01/06/23 09:27 Acetaminophen 32 5 Mg Tablet PO 650 mg Q6H PRN Administration Mild/Mod Pain Or Temp >/= 101 Alprazolam 0.25 mg 01/06/23 09:16 01/06/23 09:28 Alprazolam 0.5 M g Tablet PO 0.25 mg TID PRN Administration ANXIETY Apixaban 10 mg 01/05/23 12:30 01/06/23 09:27 Apixaban 5 Mg Ta blet PO 10 mg BID@0900,2100 FABIOLA Administration Fentanyl 1 patch 01/05/23 14:00 01/05/23 13:45 Fentanyl 50 Mcg Patch TRANSDERMA 1 patch Q72H FABIOLA Administration Piperacillin Sod/T azobactam 50 mls @ 12.5 mls /hr 01/04/23 21:00 01/06/23 13:23 Sod 3.375 gm/ So dium Chloride IV 12.5 mls/hr Q8H FABIOLA Administration Protocol Vancomycin HCl 1,0 00 mg/ 250 mls @ 250 mls /hr 01/04/23 15:00 01/06/23 15:42 Sodium Chloride IV 250 mls/hr Q8H FABIOLA Administration Montelukast Sodium 10 mg 01/05/23 09:00 01/06/23 09:28 Montelukast Sodi um 10 Mg Tablet PO 10 mg DAILY FABIOLA Administration Morphine Sulfate 60 mg 01/04/23 14:00 01/06/23 15:42 Morphine Er (12 Hr) 30 Mg Tablet PO 60 mg Q12H FABIOLA Administration Morphine Sulfate 2 mg 01/04/23 14:26 01/06/23 13:23 Morphine 4 Mg/Ml Sdv 1 Ml IVP 2 mg Q4H PRN Administration SEVERE PAIN Ondansetron HCl 4 mg 01/04/23 13:56 01/06/23 00:45 Ondansetron 2 Mg /Ml Sdv 2 Ml IVP 4 mg Q6H PRN Administration NAUSEA AND VOMITI NG Vitals/I&O/Wt Last Vital Signs Temp 97.7 F 01/06/23 16:00 Pulse 77 01/06/23 16:00 Resp 16 01/06/23 16:00 BP 154/92 01/06/23 16:00 Pulse Ox 98 01/06/23 16:00 O2 Del Method Room Air 01/06/23 16:00 O2 Flow Rate 2 01/06/23 08:09 01/06/23 01/06/23 01/06/23 06:59 14:59 22:59 Intake Total 300 / 2594.495 420 / 420 Output Total 400 / 400 Balance 300 / 2594.495 20 / 20 Weight last 48 hrs Weight 63.56 kg Weight 65.998 kg Physical Exam Const: COMMON NORMALS: patient oriented x3 HENMT: COMMON NORMALS: normocephalic and atraumatic HEAD & SCALP: normocephalic and atraumatic Resp: COMMON NORMALS: clear to auscultation bilaterally AUSCULTATION: clear to auscultation bilaterally Cardio: COMMON NORMALS: regular rate, regular rhythm, S1 normal heart sound present, S2 normal heart sound present, No gallops present (Cardio), No murmurs present (Cardio), No rub (Cardio) and Peripheral pulses 2+ throughout RATE: regular rate RHYTHM: regular rhythm HEART SOUNDS: S1 normal heart sound present and S2 normal heart sound present PERIPHERAL PULSES: Peripheral pulses 2+ throughout GI: COMMON NORMALS: Normal to inspection, nondistended, normoactive bowel sounds present, Soft to palpation, non-tender, No hepatosplenomegaly present and no masses AUSCULTATION: Yes normoactive bowel sounds PALPATION: Yes Soft to palpation and Yes No hepatosplenomegaly present RECTAL EXAM: deferred Extremity: COMMON NORMALS: no clubbing, cyanosis or edema and no pedal edema Neuro: COMMON NORMALS: patient oriented x3 Data 01/06/23 03:21 01/06/23 03:21 Micro: Microbiology 01/04/23 11:36 Blood Culture - Preliminary Blood 01/04/23 13:35 Legionella Urinary Antigen - Final Urine,Voided Bacterial Antigens - Final A&P Assessment and plan (1) Pulmonary embolism: (2) Shortness of breath: (3) Pneumonia: (4) Colon cancer metastasized to liver: Plan 52 year old female with past medical history of Ca colon with liver mets currently on chemotherapy last session done yesterday, came in today with chief complaint of worsening shortness of breath, as well as chest pain, she denied any fever chills, she has history of chronic cough, denied any sputum production, denied any worsening of cough from the baseline. Currently she is being managed for. Assessment: Shortness of breath secondary to: Acute pulmonary embolism as well as possible underlying pneumonia. CTA chest showed:Multiple filling defects in the LEFT lower lobe segmental and subsegmental pulmonary arteries compatible with pulmonary embolus.?mild RIGHT heart strain. Small amount of infiltrate in the lingula. Lower extremity Doppler vein was negative for DVT. Blood culture: NTD Sputum Gram stain and culture: GNR : Pending identification, few gram-positive cocci in pairs. MRSA PCR: Urine Legionella antigen: Negative Bacterial antigen panel: Negative Procalcitonin: 60---> Should be interpreted carefully in the presence of malignancy. Repeat Procalcitonin: Is improving She was on heparin drip,switched to eliquis,.Patient will possibly be on long-term anticoagulation. Patient has been educated on benefits and side effects of anticoagulation, most important being bleeding. Currently she is on broad-spectrum antibiotic Vanco and Zosyn.Will plan to de-escalate antibiotics depending on the clinical course and lab findings CODE STATUS full code DVT prophylaxis: On therapeutic anticoagulation with heparin. Disposition: Patient was counseled regarding her overall improvement, and our plan to discharge her in the next 24hrs, unless something changes clinically. Attestations Medical Necessity Statement*: Currently in the hospital for IV antibiotics. Coding Level of Care Code Acute Code for [facility] Diagnoses Pulmonary embolism I26.99 Shortness of breath R06.02 Pneumonia J18.9 Colon cancer metastasized to liver C18.9; C78.7
[2023-01-06 22:49] LABS: Vancomycin Trough 21.7 ug/mL (10-15)
--- NOTE | 2023-01-06 22:56 | PC.NURSE ---
Notified pharmacy personal Vinayak with trough level.
[2023-01-07] VITALS (9 sets, daily range): BP systolic 135–152; BP diastolic 83–86; PULSE 76–90; RESP 14–17; TEMP 36.4–36.6; O2SAT 97
[2023-01-07] MEDS: vancomycin 1,000 MG in sodium chloride 0.9% 250 ML 250 MG IV (03:06)
[2023-01-07] MEDS: piperacillin-tazobactam 3.375 GM in sodium chloride 0.9% (plus) 50 ML IV (04:06)
[2023-01-07] MEDS: morphine ER (12 HR) 30 mg tablet 60 MG PO (04:06)
[2023-01-07] MEDS: ondansetron 2 mg/ML SDV 2 mL 4 MG IVP ×2 (04:16→08:05)
[2023-01-07] MEDS: ALPRAZolam 0.5 mg Tablet 0.25 MG PO (06:15)
--- NOTE | 2023-01-07 06:34 | ECG_ITS ---
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 Measurements Intervals [place] Rate: 91 P: 52 TN: 143 QRS: 47 QRSD: 82 T: 40 QT: 392 QTc: 482 Interpretive Statements SINUS RHYTHM Compared to ECG 01/06/2023 02:31:35 No significant changes Electronically Signed On 01-07-2023 9:15:26 CDT by Julissa Quiros M.D. [id number]
[2023-01-07 07:03] LABS: Alanine Aminotransferase 29 U/L (0-33); Albumin Level 2.9 g/dL (3.5-5.2); Alkaline Phosphatase 100 U/L (35-105); Anion Gap 13.4 (5-19); Aspartate Amino Transferase 34 U/L (0-32); Blood Urea Nitrogen 2 mg/dL (6-20); Calcium 8.3 mg/dL (8.5-10.5); Carbon Dioxide 23 mmol/L (22-29); Chloride 103 mmol/L (98-107); Globulin 2.7 g/dL (1.3-4.6); Glucose 77 mg/dL (65-115); Osmolality Calculated 277 mOsm/kg (285-295); Potassium 3.4 mmol/L (3.5-5.1); Sodium 136 mmol/L (136-145); Total Bilirubin 0.4 mg/dL (0.15-1.2); Total Protein 5.6 g/dL (6.6-8.7)
[2023-01-07 07:05] LABS: Troponin T (5th) Once 6 ng/L (0-10)
[2023-01-07 07:21] LABS: Basophils % 0.6 %; Eosinophils # 0.2 10^3/uL (0.0-0.8); Eosinophils % 4.6 %; Hematocrit 32.5 % (37.0-47.0); Lymphocytes # 1.1 10^3/uL (0.8-4.8); Lymphocytes % 21.2 %; Mean Corpuscular HGB Conc 30.8 g/dL (30.0-36.0); Mean Corpuscular Hemoglobin 26.5 pg (28.0-34.0); Mean Platelet Volume 9.9 fL (7.4-10.4); Monocytes # 0.5 10^3/uL (0.2-0.9); Monocytes % 10.3 %; Neutrophils # 3.29 10^3/uL (1.8-7.7); Neutrophils % 62.9 %; Nucleated Red Blood Cells % 0 %; Platelet Count 239 10^3/cmm (130-400); Red Blood Count 3.78 10^6/uL (4.1-5.3); Red Cell Distribution Width 17.3 % (12.1-15.1); White Blood Count 5.2 10^3/uL (4.0-10.0)
[2023-01-07 07:26] LABS: Procalcitonin 17.89 ng/mL (0-0.5)
[2023-01-07] MEDS: montelukast sodium 10 mg Tablet PO (08:05)
[2023-01-07] MEDS: apixaban 5 mg Tablet 10 MG PO (08:05)
[2023-01-07] MEDS: morphine 4 mg/mL SDV 1 mL 2 MG IVP ×2 (08:05→11:40)
--- NOTE | 2023-01-07 10:17 | PM.DCS ---
Discharge Providers Date of Admission: 01/04/23 12:50 Date of Discharge: January 07, 2023 Attending Provider at Admission: Michael Thorpe MD Attending Provider at Discharge: Michael Thorpe MD Primary Care Provider: Clarice Perez MD Diagnoses at Discharge Discharge Diagnosis (1) Pulmonary embolism: Status: Acute (2) Shortness of breath: Status: Acute (3) Pneumonia: Status: Acute (4) Colon cancer metastasized to liver: Status: Acute Reason for Visit Reason for Visit: Chest Pain, SOB Hospital Course Hospital Course 52 year old female with past medical history of Ca colon with liver mets currently on chemotherapy last session done yesterday, came in today with chief complaint of worsening shortness of breath, as well as chest pain, she denied any fever chills, she has history of chronic cough, denied any sputum production, denied any worsening of cough from the baseline. Was admitted for the management of shortness of breath secondary to acute pulmonary embolism and possibly underlying pneumonia:CTA chest showed:Multiple filling defects in the LEFT lower lobe segmental and subsegmental pulmonary arteries compatible with pulmonary embolus.?mild RIGHT heart strain. Small amount of infiltrate in the lingula. Lower extremity Doppler vein was negative for DVT.Blood culture: NTD: Sputum Gram stain and culture: Serratia .M: Sensitive to levofloxacin. Urine Legionella antigen: Negative,Bacterial antigen panel: Negative,Procalcitonin: 60---> Should be interpreted carefully in the presence of malignancy. Repeat Procalcitonin: Is improving.She was on heparin drip, was later switched to eliquis. During the hospital stay she was on broad-spectrum antibiotics, for possible pneumonia ,she was saturating well on room air, had no significant worsening of cough she has chronic cough no sputum production, afebrile, she was discharged on, p.o. Augmentin as well as levofloxacin for another 7 days, to complete the antibiotic course for possible pneumonia, overall patient responded well to above medical management, she was discharged home in stable condition, she will continue to follow-up with oncology and PCP as outpatient. Physical Exam Const: COMMON NORMALS: patient oriented x3 HENMT: COMMON NORMALS: normocephalic and atraumatic HEAD & SCALP: normocephalic and atraumatic Resp: COMMON NORMALS: clear to auscultation bilaterally AUSCULTATION: clear to auscultation bilaterally Cardio: COMMON NORMALS: regular rate, regular rhythm, S1 normal heart sound present, S2 normal heart sound present, No gallops present (Cardio), No murmurs present (Cardio), No rub (Cardio) and Peripheral pulses 2+ throughout RATE: regular rate RHYTHM: regular rhythm HEART SOUNDS: S1 normal heart sound present and S2 normal heart sound present PERIPHERAL PULSES: Peripheral pulses 2+ throughout GI: COMMON NORMALS: Normal to inspection, nondistended, normoactive bowel sounds present, Soft to palpation, non-tender, No hepatosplenomegaly present and no masses AUSCULTATION: Yes normoactive bowel sounds PALPATION: Yes Soft to palpation and Yes No hepatosplenomegaly present RECTAL EXAM: deferred Extremity: COMMON NORMALS: no clubbing, cyanosis or edema and no pedal edema Neuro: COMMON NORMALS: patient oriented x3 Discharge Data Studies Completed and Pending Completed Studies During Hospitalization Category Date Time Status CT angio chest PE protcl 70616 Stat Cat Scan 01/04/23 08:41 Completed US venous duplex lower extremity bilat [CV venous Ultrasound 01/04/23 13:46 [place] [id number]] Routine Pending at discharge Category Date Time Status Blood Culture Stat Lab 01/04/23 11:36 Results CBC Auto Diff [Complete Blood Count w/Auto] AM LABS Lab 01/08/23 04:00 Ordered CMP [Comprehensive Metabolic Panel] AM LABS Lab 01/08/23 04:00 Ordered Sputum Culture and Gram Stain Stat Lab 01/04/23 11:25 Results Radiology Impressions Chest CTA 01/04/23 08:41 IMPRESSION: 1. Multiple filling defects in the LEFT lower lobe segmental and subsegmental pulmonary arteries compatible with pulmonary embolus. 2. Suggestion of mild RIGHT heart strain. 3. Bronchovascular thickening about the LEFT hilum/infrahilar lung with lymphadenopathy measuring 13 x 13 mm. 4. Mucus plugging LEFT lower lobe with cystic bronchiectasis and associated infiltrates. Recommend follow-up with bronchoscopy. 5. Small amount of infiltrate in the lingula. 6. No other acute findings. Notified Alexi Aranda DO at 01/04/2023 10:41 AM. Laboratory Results WBC 5.2 10^3/uL (4.0-10.0) 01/07/23 06:00 RBC 3.78 10^6/uL (4.1-5.3) L 01/07/23 06:00 Hgb 10.0 g/dL (11.5-15.3) L 01/07/23 06:00 Hct 32.5 % (37.0-47.0) L 01/07/23 06:00 MCV 86.0 fl (81-99) 01/07/23 06:00 MCH 26.5 pg (28.0-34.0) L 01/07/23 06:00 MCHC 30.8 g/dL (30.0-36.0) 01/07/23 06:00 RDW 17.3 % (12.1-15.1) H 01/07/23 06:00 Plt Count 239 10^3/cmm (130-400) 01/07/23 06:00 MPV 9.9 fL (7.4-10.4) 01/07/23 06:00 Neut % (Auto) 62.9 % 01/07/23 06:00 Lymph % (Auto) 21.2 % 01/07/23 06:00 Mcdonald % (Auto) 10.3 % 01/07/23 06:00 Eos % (Auto) 4.6 % 01/07/23 06:00 Baso % (Auto) 0.6 % 01/07/23 06:00 Neut # (Auto) 3.29 10^3/uL (1.8-7.7) 01/07/23 06:00 Lymph # (Auto) 1.1 10^3/uL (0.8-4.8) 01/07/23 06:00 Mcdonald # (Auto) 0.5 10^3/uL (0.2-0.9) 01/07/23 06:00 Eos # (Auto) 0.2 10^3/uL (0.0-0.8) 01/07/23 06:00 Baso # (Auto) 0.0 10^3/uL (0.0-0.1) 01/07/23 06:00 Nucleated RBC % (auto) 0 % 01/07/23 06:00 Nucleated RBCs # 0.0 /100WBC 01/07/23 06:00 APTT 30.2 SECONDS (23.9-36.7) 01/05/23 13:33 Sodium 136 mmol/L (136-145) 01/07/23 06:36 Potassium 3.4 mmol/L (3.5-5.1) L 01/07/23 06:36 Chloride 103 mmol/L (98-107) 01/07/23 06:36 Carbon Dioxide 23 mmol/L (22-29) 01/07/23 06:36 Anion Gap 13.4 (5-19) 01/07/23 06:36 BUN 2 mg/dL (6-20) L 01/07/23 06:36 Creatinine 0.4 mg/dL (0.5-0.9) L 01/07/23 06:36 GFR Calculation 169.0 mL/min (90-130) H 01/07/23 06:36 Glucose 77 mg/dL (65-115) 01/07/23 06:36 Calculated Osmolality 277 mOsm/kg (285-295) L 01/07/23 06:36 Calcium 8.3 mg/dL (8.5-10.5) L 01/07/23 06:36 Total Bilirubin 0.4 mg/dL (0.15-1.2) 01/07/23 06:36 AST 34 U/L (0-32) H 01/07/23 06:36 ALT 29 U/L (0-33) 01/07/23 06:36 Alkaline Phosphatase 100 U/L (35-105) 01/07/23 06:36 Troponin T Gen 5 ng/L 6 ng/L (0-10) 01/07/23 06:36 Total Protein 5.6 g/dL (6.6-8.7) L 01/07/23 06:36 Albumin 2.9 g/dL (3.5-5.2) L 01/07/23 06:36 Globulin 2.7 g/dL (1.3-4.6) 01/07/23 06:36 Procalcitonin 17.89 ng/mL (0-0.5) H 01/07/23 06:36 Vancomycin Trough 21.7 ug/mL (10-15) H 01/06/23 22:04 MRSA (PCR) Cancelled 01/06/23 05:30 Vitals Last Vital Signs Temp 97.5 F L 01/07/23 07:57 Pulse 76 01/07/23 09:17 Resp 14 01/07/23 08:05 BP 142/85 01/07/23 07:57 Pulse Ox 97 01/07/23 09:17 O2 Del Method Room Air 01/07/23 09:17 O2 Flow Rate 2 01/06/23 08:09 Discharge Plan Discharge Patient Disposition: Home Condition: Stable Prescriptions: New Eliquis 5 mg Tablet 10 mg PO BID@0900,2100 30 Days Qty: 90 3RF Rx Instructions: Please take 10 mg po BID for next 5 days and then 5 mg po BID thereafter. Augmentin 500-125 mg tablet 1 tab PO BID 7 Days Qty: 14 0RF levofloxacin 750 mg tablet 750 mg PO DAILY 7 Days Qty: 7 0RF Continued montelukast [Singulair] 10 mg tablet 10 mg PO DAILY Qty: 30 2RF morphine 60 mg tablet extended release 60 mg PO Q12H 30 Days Qty: 60 0RF morphine 15 mg tablet 15 mg PO .COMPLEX PRN (Reason: pain) 7 Days Qty: 30 0RF Rx Instructions: 15 mg orally Q4-6H PRN; fentanyl 50 mcg/hr patch 72 hour 1 patch transdermal Q72H 15 Days Qty: 5 0RF promethazine 25 mg tablet 25 mg PO Q6H PRN (Reason: nausea and vomiting) Qty: 20 0RF oxycodone 5 mg tablet 5 mg PO Q6H ondansetron 4 mg Tablet,Disintegrating 4 mg PO Q6H PRN (Reason: Nausea) naloxone 4 mg/actuation [place],Non-Aerosol 4 mg INTRANASAL Q2M PRN (Reason: Opiate Reversal) Rx Instructions: spray 1 dose into ONE nostril; alternate nostrils w each dose until help arrives metoclopramide HCl [Reglan] 10 mg tablet 10 mg PO Q6H PRN (Reason: nausea and vomiting) Qty: 30 0RF prochlorperazine maleate [Compazine] 10 mg tablet 10 mg PO Q4H PRN (Reason: Mild Nausea) Qty: 30 3RF lorazepam 1 mg tablet 0.5 - 1 mg PO Q6H PRN (Reason: Severe Nausea) Qty: 30 3RF Discharge Orders: Discharge Order (Routine); Ordered 01/07/23 Ordered By: Michael Thorpe Other Ambulatory Orders: DME: [facility] (Order) Location: None Selected Ordered By: Michael Thorpe Referrals: Clarice Perez MD [Primary Care Provider] - 01/13/23 1:30 pm Patient Instructions: Amoxicillin/Clavulanate Potassium (By mouth) (Augmentin, Augmentin..., Apixaban (By mouth) (Eliquis), Pulmonary Embolism (DC), Viral Pneumonia (DC), Opioid Safety Discharge Attestations Time Spent in Discharge Care*: less than 30 min Quality Metrics Clinical Quality Measures [ No reported AMI, CVA or VTE this stay] Coding Level of Care Code Acute Code for Chg Fwd Diagnoses Pulmonary embolism I26.99 Shortness of breath R06.02 Pneumonia J18.9 Colon cancer metastasized to liver C18.9; C78.7
== END 2023-01-07 11:59 | disposition home or self-care (01) | DRG 175 ==
LOC: ER 12:22 → MEDSURG 12:50
PROVIDERS: Internal Medicine; Admitting Provider Internal Medicine; Emergency Provider Family Medicine; PCP Family Medicine; Visit Provider Internal Medicine
DX: I26.99 Other pulmonary embolism without acute cor pulmonale (principal); J18.9 Pneumonia, unspecified organism; C18.9 Malignant neoplasm of colon, unspecified; C78.7 Secondary malignant neoplasm of liver and intrahepatic bile duct; Z87.891 Personal history of nicotine dependence; R05.3 Chronic cough
CPT/HCPCS: 36415; 36592; 71045; 71275; 80053; 80202; 84145; 84484; 85025; 85049; 85730; 86403; 87040; 87070; 87077; 87150; 87186; 87205; 87449; 87641; 93005; 93970; 96365; 96367; 96374; 96375; 97116; 97161; 99284; 99285; J1100; J1200; J1644; J2270; J2405; J2543; J3370; J7030; J7050; Q3014; Q9967

== ENCOUNTER 2023-01-11 10:36 | Oncology outpatient (recurring) (ONCR) | payer MEDICAID, SELFPAY ==
[2022-12-21 10:00] VITALS: BP 103/69; PULSE 93; RESP 18; TEMP 36.7; O2SAT 96
[2022-12-21 10:21] LABS: Basophils % 0.3 %; Eosinophils # 0.2 10^3/uL (0.0-0.8); Eosinophils % 2.1 %; Hematocrit 33.5 % (37.0-47.0); Hemoglobin 10.2 g/dL (11.5-15.3); Lymphocytes # 2.2 10^3/uL (0.8-4.8); Lymphocytes % 21.9 %; Mean Corpuscular HGB Conc 30.4 g/dL (30.0-36.0); Mean Corpuscular Hemoglobin 26.4 pg (28.0-34.0); Mean Corpuscular Volume 86.6 fl (81-99); Monocytes # 0.6 10^3/uL (0.2-0.9); Monocytes % 6.3 %; Neutrophils # 6.87 10^3/uL (1.8-7.7); Nucleated Red Blood Cells % 0 %; Platelet Count 388 10^3/cmm (130-400); Red Blood Count 3.87 10^6/uL (4.1-5.3); Red Cell Distribution Width 17.5 % (12.1-15.1)
[2022-12-21 10:46] LABS: Alanine Aminotransferase 11 U/L (0-33); Albumin Level 3.1 g/dL (3.5-5.2); Alkaline Phosphatase 181 U/L (35-105); Anion Gap 11.5 (5-19); Aspartate Amino Transferase 14 U/L (0-32); Blood Urea Nitrogen 11 mg/dL (6-20); Calcium 8.5 mg/dL (8.5-10.5); Carbon Dioxide 28 mmol/L (22-29); Chloride 103 mmol/L (98-107); Globulin 2.8 g/dL (1.3-4.6); Glomerular Filtration Rate 235.5 mL/min (90-130); Glucose 101 mg/dL (65-115); Osmolality Calculated 286 mOsm/kg (285-295); Potassium 4.5 mmol/L (3.5-5.1); Sodium 138 mmol/L (136-145); Total Bilirubin 0.2 mg/dL (0.15-1.2); Total Protein 5.9 g/dL (6.6-8.7)
[2022-12-21] MEDS: dextrose 5% 250 ML 75 ML IV (12:05)
[2022-12-21] MEDS: palonosetron 0.25 mg/5 mL SDV IVP (12:06)
[2022-12-21] MEDS: leucovorin 650 MG in dextrose 5% 250 ML 125 MG IV (12:42)
[2022-12-21] MEDS: fluorouraciL 3,900 MG, elastomeric pump 1 PUMP in sodium chloride 0.9% (100 ml) 14 ML IV (15:21)
[2022-12-21 15:31] VITALS: BP 125/90; PULSE 89; RESP 18; TEMP 36.3; O2SAT 96
[2022-12-23 13:20] VITALS: BP 120/82; PULSE 101; RESP 18; TEMP 35.8; O2SAT 99
[2022-12-27 09:07] LABS: Basophils # 0.1 10^3/uL (0.0-0.1); Basophils % 0.4 %; Eosinophils # 0.2 10^3/uL (0.0-0.8); Eosinophils % 1.5 %; Hematocrit 38.1 % (37.0-47.0); Hemoglobin 12.1 g/dL (11.5-15.3); Lymphocytes # 2.1 10^3/uL (0.8-4.8); Lymphocytes % 18.1 %; Mean Corpuscular HGB Conc 31.8 g/dL (30.0-36.0); Mean Corpuscular Hemoglobin 26.2 pg (28.0-34.0); Mean Corpuscular Volume 82.5 fl (81-99); Mean Platelet Volume 8.7 fL (7.4-10.4); Monocytes # 0.5 10^3/uL (0.2-0.9); Monocytes % 4.2 %; Neutrophils # 8.95 10^3/uL (1.8-7.7); Neutrophils % 75.5 %; Nucleated Red Blood Cells % 0 %; Platelet Count 407 10^3/cmm (130-400); Red Blood Count 4.62 10^6/uL (4.1-5.3); Red Cell Distribution Width 16.7 % (12.1-15.1); White Blood Count 11.9 10^3/uL (4.0-10.0)
[2022-12-27 09:27] LABS: Alanine Aminotransferase 33 U/L (0-33); Albumin Level 3.7 g/dL (3.5-5.2); Alkaline Phosphatase 138 U/L (35-105); Anion Gap 17.6 (5-19); Aspartate Amino Transferase 38 U/L (0-32); Blood Urea Nitrogen 7 mg/dL (6-20); Calcium 8.6 mg/dL (8.5-10.5); Carbon Dioxide 25 mmol/L (22-29); Chloride 94 mmol/L (98-107); Globulin 3.3 g/dL (1.3-4.6); Glucose 127 mg/dL (65-115); Osmolality Calculated 276 mOsm/kg (285-295); Potassium 3.6 mmol/L (3.5-5.1); Sodium 133 mmol/L (136-145); Total Bilirubin 0.4 mg/dL (0.15-1.2)
[2022-12-27 09:36] LABS: Creatinine Clr Calc Pharmacy 151.7579
--- NOTE | 2022-12-27 12:17 | PC.NURSE ---
PICC line dressing change completed via sterile technique. Pt tolerated well. No redness or irritation noted. KAMALJIT
[2023-01-03 07:52] VITALS: BP 96/65; PULSE 94; RESP 16; TEMP 36.7; O2SAT 99
[2023-01-03 08:21] LABS: Basophils % 0.3 %; Eosinophils # 0.5 10^3/uL (0.0-0.8); Eosinophils % 4.2 %; Hemoglobin 10.6 g/dL (11.5-15.3); Lymphocytes # 2.5 10^3/uL (0.8-4.8); Lymphocytes % 21.3 %; Mean Corpuscular HGB Conc 31.2 g/dL (30.0-36.0); Mean Corpuscular Hemoglobin 27.1 pg (28.0-34.0); Mean Platelet Volume 8.9 fL (7.4-10.4); Monocytes # 1.1 10^3/uL (0.2-0.9); Monocytes % 8.8 %; Neutrophils # 7.72 10^3/uL (1.8-7.7); Neutrophils % 64.9 %; Nucleated Red Blood Cells % 0 %; Platelet Count 330 10^3/cmm (130-400); Red Blood Count 3.91 10^6/uL (4.1-5.3); Red Cell Distribution Width 17.7 % (12.1-15.1); White Blood Count 11.9 10^3/uL (4.0-10.0)
[2023-01-03 08:44] LABS: Alanine Aminotransferase 12 U/L (0-33); Albumin Level 3.5 g/dL (3.5-5.2); Alkaline Phosphatase 114 U/L (35-105); Anion Gap 14.5 (5-19); Aspartate Amino Transferase 14 U/L (0-32); Blood Urea Nitrogen 6 mg/dL (6-20); Calcium 8.6 mg/dL (8.5-10.5); Carbon Dioxide 27 mmol/L (22-29); Chloride 102 mmol/L (98-107); Globulin 2.8 g/dL (1.3-4.6); Glomerular Filtration Rate 235.5 mL/min (90-130); Glucose 109 mg/dL (65-115); Osmolality Calculated 286 mOsm/kg (285-295); Potassium 4.5 mmol/L (3.5-5.1); Sodium 139 mmol/L (136-145); Total Bilirubin 0.2 mg/dL (0.15-1.2); Total Protein 6.3 g/dL (6.6-8.7)
[2023-01-03] MEDS: palonosetron 0.25 mg/5 mL SDV IVP (10:19)
[2023-01-03] MEDS: dextrose 5% 250 ML 75 ML IV (10:19)
[2023-01-03] MEDS: leucovorin 650 MG in dextrose 5% 250 ML 62.5 MG IV (11:04)
[2023-01-03] MEDS: fluorouraciL 3,900 MG, elastomeric pump 1 PUMP in sodium chloride 0.9% (100 ml) 14 ML IV (14:37)
[2023-01-03 14:41] VITALS: BP 115/75; PULSE 77; RESP 16; TEMP 36; O2SAT 97
[2023-01-11 11:41] VITALS: BP 106/73; PULSE 91; RESP 16; TEMP 36.3; O2SAT 98
[2023-01-11 12:06] LABS: Basophils # 0.1 10^3/uL (0.0-0.1); Basophils % 0.4 %; Eosinophils # 0.1 10^3/uL (0.0-0.8); Hemoglobin 10.8 g/dL (11.5-15.3); Lymphocytes # 2.3 10^3/uL (0.8-4.8); Lymphocytes % 17.4 %; Mean Corpuscular HGB Conc 31.8 g/dL (30.0-36.0); Mean Corpuscular Volume 81.9 fl (81-99); Mean Platelet Volume 8.9 fL (7.4-10.4); Monocytes # 1.2 10^3/uL (0.2-0.9); Neutrophils # 8.77 10^3/uL (1.8-7.7); Neutrophils % 67.4 %; Nucleated Red Blood Cells % 0 %; Platelet Count 320 10^3/cmm (130-400); Red Blood Count 4.15 10^6/uL (4.1-5.3)
[2023-01-11 12:21] LABS: Alanine Aminotransferase 10 U/L (0-33); Albumin Level 3.8 g/dL (3.5-5.2); Alkaline Phosphatase 115 U/L (35-105); Anion Gap 18.2 (5-19); Aspartate Amino Transferase 13 U/L (0-32); Blood Urea Nitrogen 4 mg/dL (6-20); Calcium 8.9 mg/dL (8.5-10.5); Carbon Dioxide 25 mmol/L (22-29); Chloride 96 mmol/L (98-107); Glomerular Filtration Rate 105.8 mL/min (90-130); Glucose 83 mg/dL (65-115); Osmolality Calculated 278 mOsm/kg (285-295); Potassium 3.2 mmol/L (3.5-5.1); Sodium 136 mmol/L (136-145); Total Bilirubin 0.3 mg/dL (0.15-1.2); Total Protein 6.8 g/dL (6.6-8.7)
--- NOTE | 2023-01-24 09:59 | PC.NURSE ---
Late entry - 01/05/23 - 1400 - 5 fu pump completed, disconnected, line flushed per protocol.
== END 2023-01-12 23:59 | disposition home or self-care (01) ==
PROVIDERS: Nurse Practitioner; Nurse Practitioner Family; PCP Family Medicine; Visit Provider Internal Medicine Hematology & Oncology
DX: C78.7 Secondary malignant neoplasm of liver and intrahepatic bile duct (principal); C18.7 Malignant neoplasm of sigmoid colon; C18.9 Malignant neoplasm of colon, unspecified
CPT/HCPCS: 36592; 80053; 85025; 96367; 96368; 96375; 96413; 96415; 96416; J0640; J1100; J1642; J2469; J7060; J9190; J9263

== ENCOUNTER 2023-01-17 18:32 | Inpatient (IN) | payer MEDICAID, SELFPAY ==
[2023-01-17] VITALS (8 sets, daily range): BP systolic 112–128; BP diastolic 70–80; PULSE 80–99; RESP 12–37; TEMP 36.3; O2SAT 97–100; BMI 22.3
--- NOTE | 2023-01-17 18:36 | ECG_ITS ---
[facility] Test Date: 2023-01-17 Pat Name: Judi Lam Department: Room: Gender: Female Proced Tech: : 1970 Requested By: iNya Taylor Order Number: [id number] Marissa MD: Julissa Quiros M.D. Measurements Intervals [place] Rate: 103 P: 45 [place]: 112 QRS: 71 QRSD: 73 T: 49 QT: 375 QTc: 491 Interpretive Statements SINUS TACHYCARDIA WITH SHORT CA INTERVAL NONSPECIFIC T-WAVE ABNORMALITY ABNORMAL RHYTHM ECG Compared to ECG 01/07/2023 06:34:41 Short CA interval now present T-wave abnormality now present Sinus rhythm no longer present Electronically Signed On 01-18-2023 5:49:19 CDT by Julissa Quiros M.D. [id number]
--- NOTE | 2023-01-17 18:36 | XRR_ITS ---
PROCEDURE INFORMATION: Exam: XR Chest Exam date and time: 01/17/2023 7:11 PM Age: 53 years old Clinical indication: Shortness of breath; Additional info: SOB TECHNIQUE: Imaging protocol: Radiologic exam of the chest. Views: 1 view. COMPARISON: CR (CHEST, ) 01/03/2023 4:46 PM FINDINGS: Tubes, catheters and devices: Right-sided PICC line with tip approaching the atrial caval junction. Lungs: Unremarkable. No consolidation. Pleural spaces: Unremarkable. No pleural effusion. No pneumothorax. Heart/Mediastinum: Unremarkable. No cardiomegaly. Bones/joints: Unremarkable. XR/XR chest 1V portable [id number] IMPRESSION: 1. Negative for infiltrate. 2. Right-sided PICC line with tip approaching the atrial caval junction.
--- NOTE | 2023-01-17 19:58 | CTR_ITS ---
PROCEDURE INFORMATION: Exam: CTA Chest With Contrast Exam date and time: 01/17/2023 9:07 PM Age: 53 years old Clinical indication: Abdominal tenderness; Shortness of breath; Additional info: HX pe, chest pain, abdominal pain TECHNIQUE: Imaging protocol: Computed tomographic angiography of the chest with contrast. Exam focused on the arteries. 3D rendering (Not supervised by radiologist): MIP and/or 3D reconstructed images were created by the technologist. Radiation optimization: All CT scans at this facility use at least one of these dose optimization techniques: automated exposure control; mA and/or kV adjustment per patient size (includes targeted exams where dose is matched to clinical indication); or iterative reconstruction. Contrast material: OMNIPAQUE; Contrast volume: 100 ml; Contrast route: INTRAVENOUS (IV); REPORTING DATA: Count of CT and Cardiac NM exams in prior 12 months: This patient has received 7 known CTs and 0 known cardiac nuclear medicine studies in the 12 months prior to the current study. COMPARISON: CT angio chest PE protcl [id number] 01/04/2023 10:10 AM RADIATION DOSE METRICS: Total DLP (mGy-cm): 506.71 FINDINGS: Pulmonary arteries: Stable occlusive pulmonary emboli/chronically occluded pulmonary arteries in the left lower lobe. Continued non perfusion to the right middle lobe suggesting possibly chronically occluded right middle lobe pulmonary arteries. Aorta: Unremarkable. No aortic aneurysm. No aortic dissection. Lungs: Dilated bronchi with prominent peribronchial thickening in the left lower lobe consistent with bronchiectasis and bronchitis. Continued complete collapse of the right middle lobe with peribronchial thickening of the right middle lobe bronchus and segmental bronchi. Pleural spaces: Bilateral apical pleural and/or parenchymal scarring. Heart: Unremarkable. No cardiomegaly. No pericardial effusion. Lymph nodes: Mild mediastinal and left hilar adenopathy consistent with reactive adenopathy. Bones/joints: Unremarkable. No acute fracture. Soft tissues: Unremarkable. PROCEDURE INFORMATION: Exam: CT Abdomen And Pelvis With Contrast Exam date and time: 01/17/2023 9:07 PM Age: 53 years old Clinical indication: Abdominal tenderness; Shortness of breath; Additional info: HX pe, chest pain, abdominal pain TECHNIQUE: Imaging protocol: Computed tomography of the abdomen and pelvis with contrast. Radiation optimization: All CT scans at this facility use at least one of these dose optimization techniques: automated exposure control; mA and/or kV adjustment per patient size (includes targeted exams where dose is matched to clinical indication); or iterative reconstruction. Contrast material: OMNIPAQUE; Contrast volume: 100 ml; Contrast route: INTRAVENOUS (IV); REPORTING DATA: Count of CT and Cardiac NM exams in prior 12 months: This patient has received 7 known CTs and 0 known cardiac nuclear medicine studies in the 12 months prior to the current study. COMPARISON: CT abdomen pelvis w con* [id number] 11/26/2022 11:08 AM RADIATION DOSE METRICS: Total DLP (mGy-cm): 0.01 FINDINGS: Liver: Normal. No mass. Gallbladder and bile ducts: Stable cholecystectomy. Pancreas: Normal. No ductal dilation. Spleen: Normal. No splenomegaly. Adrenal glands: Normal. No mass. Kidneys and ureters: Multiple left renal simple cysts with the largest measuring > 1.0 cm. Stomach and bowel: Left lower quadrant colostomy. Rectosigmoid stump with partially expanded metallic stent in the sigmoid colon portion of the rectosigmoid stump. Appendix: No evidence of appendicitis. Intraperitoneal space: Unremarkable. No free air. No significant fluid collection. Vasculature: Unremarkable. No abdominal aortic aneurysm. Lymph nodes: Unremarkable. No enlarged lymph nodes. Urinary bladder: Unremarkable as visualized. Reproductive: Unremarkable as visualized. Bones/joints: Mild dextroscoliosis. Soft tissues: Unremarkable. CT/CT angio chest w abd pel w con IMPRESSION: 1. Stable occlusive pulmonary emboli/chronically occluded pulmonary arteries in the left lower lobe. 2. Dilated bronchi with prominent peribronchial thickening in the left lower lobe consistent with bronchiectasis and bronchitis. 3. Mild mediastinal and left hilar adenopathy consistent with reactive adenopathy. 4. Continued complete collapse of the right middle lobe with peribronchial thickening of the right middle lobe bronchus and segmental bronchi. 5. Continued non perfusion to the right middle lobe suggesting possibly chronically occluded right middle lobe pulmonary arteries. 6. No obvious acute pulmonary embolus. 7. Right heart strain with RV/LV ratio 1.2. Previously the RV/LV ratio was 1.3. IMPRESSION: 1. Left lower quadrant colostomy. 2. Rectosigmoid stump with partially expanded metallic stent in the sigmoid colon portion of the rectosigmoid stump. COMMENTS: Consistent with the [employer]'s Incidental Findings Committee white paper (J Am Maci Radiol 2018): Any incidental renal lesion less than 1 cm or classified as too small to characterize, or any incidental cystic renal lesion characterized as simple-appearing, is likely benign. No follow-up imaging is recommended for these lesions per consensus recommendations based on imaging criteria.
--- NOTE | 2023-01-17 20:14 | W.ED.CHESTPA ---
HPI - Chest Pain General: Chief Complaint: Chest Pain Stated Complaint: sob, chest pain Time Seen by Provider: 01/17/23 19:37 Source: patient Limitations: no limitations History of Present Illness: This 53-year-old female with a history of colon cancer presents to the ER with shortness of breath, chest pain and abdominal pain that started earlier today. She was seen here few days ago with shortness of breath and work-up at that time revealed pulmonary embolism. She was placed on Eliquis. Patient notes that she was doing well until today when she started experiencing shortness of breath again. This is associated with chest pain that starts from the midsternal area to the periumbilical region. She has no fever, nausea or vomiting. She also complains of back pain. Vital signs are stable with oxygen saturation of 99% on room air. Patient is not struggling to breathe at this time. Associated symptoms: Reports abdominal pain Review of Systems Const: Denies: chills, body aches or change in appetite Eyes: Denies: change in vision or eye discharge ENMT: Denies: throat pain, dental pain or nasal discharge Card: Reports: chest pain and dyspnea on exertion GI: Reports: abdominal pain : Denies: dysuria Musc: Denies: neck pain or back pain Neuro: Denies: headache(s) or weakness in extremities Psych: Denies: depression Brian/Lymph: Denies: easy bruising All/Imm: Denies: urticaria, tongue swelling or facial swelling PFSH ED PFSH: Medical History Colon cancer Colon cancer metastasized to liver Diverticulitis Pneumonia Pulmonary embolism Shortness of breath Surgical History History of colon surgery 09/2022 ostomy placed. Family History Other CAD (coronary artery disease) Cancer Hyperlipidemia Hypertension Lung disease Psychiatric illness Stroke Denies family history of Diabetes Clotting disorder Dementia Chronic kidney disease (CKD) Suicide Anesthesia complication Bleeding disorder Social History Smoking and tobacco status: former smoker Quit status (tobacco): has quit using tobacco Former quit date comment: smoked x 10 years Alcohol intake: never Physical Exam Const: COMMON NORMALS: patient oriented x3, no limitations and alert OTHER: Mild distress due to abdominal pain. HENMT: COMMON NORMALS: normocephalic HEAD & SCALP: normocephalic Eye: COMMON NORMALS: EOMs intact bilaterally Neck/C-Spine: COMMON NORMALS: full ROM and supple Chest: COMMONS NORMALS: normal inspection of the chest Resp: COMMON NORMALS: normal respiratory effort, No retractions, No use of accessory muscles and clear to auscultation bilaterally AUSCULTATION: clear to auscultation bilaterally Cardio: COMMON NORMALS: regular rate, regular rhythm and No murmurs present (Cardio) RATE: regular rate RHYTHM: regular rhythm GI: COMMON NORMALS: Normal to inspection, nondistended, normoactive bowel sounds present OTHER: Presence of colostomy left lower quadrant. It is covered with a colostomy bag. Mild diffuse abdominal pain. No distention or rigidity. : COMMON NORMALS: Yes no CVA tenderness BLADDER/KIDNEY EXAM: Yes no CVA tenderness Back/Pelvis: COMMON NORMALS: no CVA tenderness and no thoracic nor lumbar tenderness Extremity: GENERAL: Yes normal exam except as noted Neuro: COMMON NORMALS: patient oriented x3 and no focal motor deficits SENSORIUM/ORIENTATION: Yes alert Psych: COMMON NORMALS: mental status grossly normal and cooperative Course Vital Signs: Vital signs: Vital Signs Temperature 97.4 F L 01/17/23 18:41 Pulse Rate 99 01/17/23 18:41 Respiratory Rate 18 01/17/23 18:41 Blood Pressure 112/70 01/17/23 18:41 Pulse Oximetry 99 01/17/23 18:41 Oxygen Delivery Me thod Room Air 01/17/23 18:41 MDM - Chest Pain Medical Decision Making Medical decision making: History as above. Patient has hypokalemia with potassium of 2.8. IV potassium started. Oral potassium administered. She will be placed in observation for further potassium administration and recheck. Case discussed with Dr. Herrera who accepted patient for observation placement. Lab Data 01/17/23 20:30 01/17/23 20:30 Radiology Impressions Chest X-Ray 01/17/23 18:36 IMPRESSION: 1. Negative for infiltrate. 2. Right-sided PICC line with tip approaching the atrial caval junction. Chest/Abdomen/Pelvis CT 01/17/23 19:58 IMPRESSION: 1. Stable occlusive pulmonary emboli/chronically occluded pulmonary arteries in the left lower lobe. 2. Dilated bronchi with prominent peribronchial thickening in the left lower lobe consistent with bronchiectasis and bronchitis. 3. Mild mediastinal and left hilar adenopathy consistent with reactive adenopathy. 4. Continued complete collapse of the right middle lobe with peribronchial thickening of the right middle lobe bronchus and segmental bronchi. 5. Continued non perfusion to the right middle lobe suggesting possibly chronically occluded right middle lobe pulmonary arteries. 6. No obvious acute pulmonary embolus. 7. Right heart strain with RV/LV ratio 1.2. Previously the RV/LV ratio was 1.3. IMPRESSION: 1. Left lower quadrant colostomy. 2. Rectosigmoid stump with partially expanded metallic stent in the sigmoid colon portion of the rectosigmoid stump. COMMENTS: Consistent with the [employer]'s Incidental Findings Committee white paper (J Am Maci Radiol 2018): Any incidental renal lesion less than 1 cm or classified as too small to characterize, or any incidental cystic renal lesion characterized as simple-appearing, is likely benign. No follow-up imaging is recommended for these lesions per consensus recommendations based on imaging criteria. Laboratory Results WBC 9.3 10^3/uL (4.0-10.0) 01/17/23 20:30 RBC 4.13 10^6/uL (4.1-5.3) 01/17/23 20:30 Hgb 11.0 g/dL (11.5-15.3) L 01/17/23 20:30 Hct 34.1 % (37.0-47.0) L 01/17/23 20:30 MCV 82.6 fl (81-99) 01/17/23 20:30 MCH 26.6 pg (28.0-34.0) L 01/17/23 20:30 MCHC 32.3 g/dL (30.0-36.0) 01/17/23 20:30 RDW 16.9 % (12.1-15.1) H 01/17/23 20:30 Plt Count 295 10^3/cmm (130-400) 01/17/23 20:30 MPV 9.3 fL (7.4-10.4) 01/17/23 20:30 Neut % (Auto) 55.5 % 01/17/23 20: Lymph % (Auto) 30.9 % 01/17/23 20:30 [place] % (Auto) 10.3 % 01/17/23 20:30 Eos % (Auto) 2.4 % 01/17/23 20:30 Baso % (Auto) 0.6 % 01/17/23 20:30 Neut # (Auto) 5.13 10^3/uL (1.8-7.7) 01/17/23 20:30 Lymph # (Auto) 2.9 10^3/uL (0.8-4.8) 01/17/23 20: [place] # (Auto) 1.0 10^3/uL (0.2-0.9) H 01/17/23 20:30 Eos # (Auto) 0.2 10^3/uL (0.0-0.8) 01/17/23 20: Baso # (Auto) 0.1 10^3/uL (0.0-0.1) 01/17/23 20:30 Nucleated RBC % (auto) 0 % 01/17/23 20: Nucleated RBCs # 0.0 /100WBC 01/17/23 20:30 PT 21.10 SECONDS (12.1-14.9) H 01/17/23 20:30 INR 1.75 (0.8-1.2) H 01/17/23 20:30 Sodium 136 mmol/L (136-145) 01/17/23 20:30 Potassium 2.8 mmol/L (3.5-5.1) L* 01/17/23 20:30 Chloride 96 mmol/L (98-107) L 01/17/23 20:30 Carbon Dioxide 23 mmol/L (22-29) 01/17/23 20:30 Anion Gap 19.8 (5-19) H 01/17/23 20:30 BUN 4 mg/dL (6-20) L 01/17/23 20:30 Creatinine 0.5 mg/dL (0.5-0.9) 01/17/23 20:30 GFR Calculation 130.1 mL/min (90-130) H 01/17/23 20:30 Glucose 79 mg/dL (65-115) 01/17/23 20:30 Calculated Osmolality 278 mOsm/kg (285-295) L 01/17/23 20:30 Calcium 9.3 mg/dL (8.5-10.5) 01/17/23 20:30 Total Bilirubin 0.5 mg/dL (0.15-1.2) 01/17/23 20:30 AST 13 U/L (0-32) 01/17/23 20:30 ALT < 5 U/L (0-33) 01/17/23 20:30 Alkaline Phosphatase 95 U/L (35-105) 01/17/23 20:30 Troponin T Baseline 6 ng/L (0-10) 01/17/23 20:30 NT-Pro-B Natriuret Pep 138 pg/mL (0-125) H 01/17/23 20:30 Total Protein 6.2 g/dL (6.6-8.7) L 01/17/23 20:30 Albumin 3.4 g/dL (3.5-5.2) L 01/17/23 20:30 Globulin 2.8 g/dL (1.3-4.6) 01/17/23 20:30 EKG Data EKG 1: Interpretation: Sinus tachycardia, rate of 103, normal axis, normal QRS, nonspecific T wave changes, no STEMI. Discharge Plan Discharge Patient Disposition: Placed in Observation Clinical Impression: Hypokalemia, Cancer related pain, Pulmonary embolism Coding Level of Care Code ED Professional Nurse for Alison Groves
[2023-01-17 20:39] LABS: Basophils # 0.1 10^3/uL (0.0-0.1); Basophils % 0.6 %; Eosinophils # 0.2 10^3/uL (0.0-0.8); Eosinophils % 2.4 %; Hematocrit 34.1 % (37.0-47.0); Lymphocytes # 2.9 10^3/uL (0.8-4.8); Lymphocytes % 30.9 %; Mean Corpuscular HGB Conc 32.3 g/dL (30.0-36.0); Mean Corpuscular Hemoglobin 26.6 pg (28.0-34.0); Mean Corpuscular Volume 82.6 fl (81-99); Mean Platelet Volume 9.3 fL (7.4-10.4); Monocytes % 10.3 %; Neutrophils # 5.13 10^3/uL (1.8-7.7); Neutrophils % 55.5 %; Nucleated Red Blood Cells % 0 %; Platelet Count 295 10^3/cmm (130-400); Red Blood Count 4.13 10^6/uL (4.1-5.3); Red Cell Distribution Width 16.9 % (12.1-15.1); White Blood Count 9.3 10^3/uL (4.0-10.0)
[2023-01-17 20:49] LABS: INR 1.75 (0.8-1.2)
[2023-01-17 20:56] LABS: Troponin(5th) Baseline 6 ng/L (0-10)
[2023-01-17 21:06] LABS: Alanine Aminotransferase < 5 U/L (0-33); Albumin Level 3.4 g/dL (3.5-5.2); Alkaline Phosphatase 95 U/L (35-105); Anion Gap 19.8 (5-19); Aspartate Amino Transferase 13 U/L (0-32); Blood Urea Nitrogen 4 mg/dL (6-20); Calcium 9.3 mg/dL (8.5-10.5); Carbon Dioxide 23 mmol/L (22-29); Chloride 96 mmol/L (98-107); Globulin 2.8 g/dL (1.3-4.6); Glomerular Filtration Rate 130.1 mL/min (90-130); Glucose 79 mg/dL (65-115); NT Pro B Type Natriuretic Pept 138 pg/mL (0-125); Osmolality Calculated 278 mOsm/kg (285-295); Sodium 136 mmol/L (136-145); Total Bilirubin 0.5 mg/dL (0.15-1.2); Total Protein 6.2 g/dL (6.6-8.7)
[2023-01-17 21:14] LABS: Potassium 2.8 mmol/L (3.5-5.1)
[2023-01-17] MEDS: iohexol 350 mg/mL 500 mL Btl (per mL) IV (21:16)
--- NOTE | 2023-01-17 21:27 | ECG_ITS ---
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 Measurements Intervals [place] Rate: 79 P: 47 ID: 153 QRS: 62 QRSD: 79 T: 54 QT: 420 QTc: 484 Interpretive Statements SINUS RHYTHM Compared to ECG 01/17/2023 18:38:56 Sinus tachycardia no longer present Short ID interval no longer present T-wave abnormality no longer present Electronically Signed On 01-18-2023 5:49:54 CDT by Julissa Quiros M.D. [id number]
[2023-01-17] MEDS: potassium chloride ER 20 mEq Tablet 40 MEQ PO (22:10)
[2023-01-17] MEDS: potassium chloride premix 100 ML 50 MEQ IV (22:12)
[2023-01-17] MEDS: lidocaine 1% INJ 10 mL (per mL) 5 ML IV (22:45)
[2023-01-17] MEDS: morphine 4 mg/mL SDV 1 mL IVP (23:11)
[2023-01-17] MEDS: ondansetron 2 mg/ML SDV 2 mL 4 MG IVP (23:16)
[2023-01-17 23:31] LABS: Troponin 5 2HR 8.18 ng/L (0-10)
[2023-01-17 23:33] LABS: Troponin 5 2HR Delta 2.18 ABS# (0-10)
[2023-01-18] VITALS (20 sets, daily range): BP systolic 102–129; BP diastolic 65–84; PULSE 70–99; RESP 13–20; TEMP 36.6–36.9; O2SAT 95–100
--- NOTE | 2023-01-18 00:36 | ECG_ITS ---
[facility] Test Date: 2023-01-18 Pat Name: Judi Lam Department: Room: 273 Gender: Female Lyric Writer: : 1970 Requested By: Niya Taylor Order Number: [id number] Marissa MD: Julissa Quiros M.D. Measurements Intervals [place] Rate: 79 P: 52 OR: 128 QRS: 65 QRSD: 74 T: 61 QT: 394 QTc: 452 Interpretive Statements SINUS RHYTHM Compared to ECG 01/17/2023 21:27:32 No significant changes Electronically Signed On 01-18-2023 5:49:36 CDT by Julissa Quiros M.D. [id number]
[2023-01-18] MEDS: pantoprazole 40 mg SDV IVP (01:56)
[2023-01-18] MEDS: sodium chloride 0.9% 1,000 ML 125 ML IV ×3 (01:57→17:51)
[2023-01-18] MEDS: morphine 4 mg/mL SDV 1 mL 2 MG IVP ×2 (02:11→06:14)
--- NOTE | 2023-01-18 03:18 | P.HP_ITS ---
Providers/Chief Complaint Admitting Physician: Cindy Herrera MD Primary Care Provider: Clarice Perez MD Chief Complaint: sob, chest pain History of Present Illness Judi Lam is a 53 year old female With past medical history of colon cancer with mets to liver, diverticulitis, pneumonia, recent PE now on Eliquis presenting to the hospital today for complaint of shortness of breath that started earlier today.She also complains of chest pain that is more like a tightness. She denies hx of heart disease. She says she cant seem to get enough air in. She was recently diagnosed with a PE and is currently on Eliquis at this time. She is now on room air and not requiring any oxygen. Patient denied fever, nausea, vomiting. She does have a colostomy in place. She is saturating 99% on room air. No acute respiratory distress. Denies abdominal pain, headache, chills, change in appetite at this time. Denies any hemoptysis at this time. Denies dyspnea on exertion. sHe is a former smoker. Chest x-ray done did not show any evidence of pneumonia. She does have a PICC line in place through which she is receiving chemotherapy. CT chest abdomen pelvis was done which showed stable occlusive pulmonary emboli. Dilated bronchi with prominent peribronchial thickening in left lower lobe consistent with bronchiectasis and bronchitis. Mild mediastinal and left hilar adenopathy consistent with reactive adenopathy. Continued complete collapse of right middle lobe with peribronchial thickening of right middle lobe bronchus and segmental bronchi. Continued nonperfusion to right middle lobe suggesting possibly chronically occluded right middle lobe pulmonary arteries. Left lower quadrant colostomy, labs showed WBC 9.3, hemoglobin 11.0, platelet 295, sodium 136, potassium 2.8, creatinine 0.5. BNP 138. Patient was started on IV potassium in the ER and hospitalist was requested to admit for potassium repletion via IV route. Troponins negative. Chest pain has resolved at this time. EKG did not show any acute ischemic changes. Patient's last chemotherapy session was on 09/2022. Medications/Allergies Home Medications Medication Instructions Recorded Confirmed Last Taken Type naloxone 4 mg/actuation nasal spray 4 mg intranasal Q2M PRN Opiate 09/25/22 01/11/23 Unknown History Reversal ondansetron 4 mg disintegrating 4 mg PO Q6H PRN Nausea 09/25/22 01/11/23 Unknown History tablet metoclopramide HCl 10 mg tablet 10 mg PO Q6H PRN nausea and 11/06/22 01/11/23 Unknown Rx (Reglan) vomiting #30 tabs promethazine 25 mg tablet 25 mg PO Q6H PRN nausea and 11/13/22 01/11/23 Unknown Rx vomiting #20 tabs morphine 60 mg tablet,extended 60 mg PO Q12H 30 days #60 tabs 12/14/22 01/11/23 01/04/23 Rx release lorazepam 1 mg tablet 0.5 - 1 mg PO Q6H PRN Severe 12/21/22 01/11/23 Unknown Rx Nausea #30 tabs prochlorperazine maleate 10 mg 10 mg PO Q4H PRN Mild Nausea #30 12/21/22 01/11/23 Unknown Rx tablet (Compazine) tabs montelukast 10 mg tablet 10 mg PO DAILY #30 tabs 12/27/22 01/11/23 01/04/23 Rx (Singulair) oxycodone 5 mg tablet 5 mg PO Q6H 01/04/23 01/11/23 Unknown History apixaban 5 mg tablet (Eliquis) 10 mg PO BID@0900,2100 30 days #90 01/07/23 01/11/23 Unknown Rx tabs fentanyl 50 mcg/hr transdermal 1 patch transdermal Q72H 15 days 01/11/23 Unknown Rx patch #5 ea morphine 15 mg immediate release 15 mg PO .COMPLEX PRN pain 1 week 01/11/23 Unknown Rx tablet #30 tabs Allergies Allergy/AdvReac Type Severity Reaction Status Date / Time tramadol [From Ultra] Allergy ALGY-Anaphy Verified 01/17/23 18:41 laxis PFSH Acute PFSH: Medical History Colon cancer Colon cancer metastasized to liver Diverticulitis Pneumonia Pulmonary embolism Shortness of breath Surgical History History of colon surgery 09/2022 ostomy placed. Family History Other CAD (coronary artery disease) Cancer Hyperlipidemia Hypertension Lung disease Psychiatric illness Stroke Denies family history of Diabetes Clotting disorder Dementia Chronic kidney disease (CKD) Suicide Anesthesia complication Bleeding disorder Social History Smoking and tobacco status: former smoker Quit status (tobacco): has quit using tobacco Former quit date comment: smoked x 10 years Alcohol intake: never Vitals/I&O/Wt Last Vital Signs Temp 97.9 F 01/18/23 00:59 Pulse 82 01/18/23 01:41 Resp 16 01/18/23 02:11 BP 121/74 01/18/23 01:41 Pulse Ox 97 01/18/23 01:41 O2 Del Method Room Air 01/18/23 01:51 Weight last 48 hrs Weight 58.967 kg Physical Exam Narrative: General: Alert oriented x3, patient seen laying in bed on room air. No acute respiratory distress. HEENT: Normocephalic, atraumatic, EOMI, breathing comfortably. Cardio: Regular rate rhythm, normal S1-S2 Respiratory: Mild rhonchi bilaterally present GI: Abdomen soft, nontender,bowel sounds + Extremities: No edema bilateral lower extremities Data 01/17/23 20:30 01/18/23 02:51 A&P Assessment and plan (1) Pulmonary embolism: (2) Colon cancer metastasized to liver: (3) Dehydration: (4) Nausea & vomiting: (5) Hypokalemia: (6) Cancer related pain: Plan #Chest pain, shortness of breath most likely secondary to recent diagnosis of pulmonary embolism #Possible bronchiectasis/bronchitis right middle lobe with partial collapse #Hypokalemia potassium 2.8 #Status post colostomy placement #Active chemotherapy, immunocompromise status #Chronic anticoagulation #Colon cancer with metastasis to liver #History of diverticulitis -Troponins negative, EKG without any acute ischemic changes. Chest pain most likely pleuritic in nature. - Chest pain is like a tightness that comes and goes that she states she has had ever since she got diagnosed with cancer.. Does not sound typical cardiac pain. First two troponins are negative. 6 hour trop is pending. ? To be continued on Eliquis at this time. Patient is on room air. ? 40 IV potassium administered in the ER. We will recheck BMP in a.m. and replete potassium as warranted. Most likely low due to GI loss from colostomy output ? Patient does appear mildly dehydrated. Will place on IV fluids normal saline 75 cc/h at this time ? Consider pulmonology consult for bronchoscopy given CT findings however patient is asymptomatic at this time: Dilated bronchi with prominent peribronchial thickening in the left lower lobe consistent with bronchiectasis and bronchitis. 3. ? Mild mediastinal and left hilar adenopathy consistent with reactive adenopathy. 4. ? Continued complete collapse of the right middle lobe with peribronchial thickening of the right middle lobe bronchus and segmental bronchi. -No signs and symptoms of infection at this time. We will hold off on antibiotics ? Check procalcitonin ? Observation admission for electrolyte repletion. Full code SCDs Guadalupequis should suffice for DVT prophylaxis Attestations Medical Necessity Statement*: Observation admission for electrolyte repletion Coding Level of Care Code G0425 (30 min) TH Encounter Time (min): 45 Patient seen via Telehealth in the acute care setting (hospital or ED location) by agreement and consent of patient or patient videotape sales representative. Telehealth technology used during the visit includes video and audio. This patient encount er is appropriate and reasonable under the circumstances given the patient?s particular presentation at this time. The patient has been advised of the potential risks and limitations of this mode of treatment (including but not limited to the absence of in-person examination at this time) and has agreed to be treated by an off-site physician for this visit. If deemed clinically necessary from this telehealth visit, or if condition or consent for telehealth visit changes, an in-person visit will be arranged. For this encounter, total time for the origination of telehealth care on this date is as shown. Diagnoses Pulmonary embolism I26.99 Colon cancer metastasized to liver C18.9; C78.7 Dehydration E86.0 Nausea & vomiting R11.2 Hypokalemia E87.6 Cancer related pain G89.3
[2023-01-18 04:01] LABS: Troponin 5 6HR 24.63 ng/L (0-10)
[2023-01-18 04:03] LABS: Anion Gap 17.5 (5-19); Blood Urea Nitrogen 3 mg/dL (6-20); Calcium 9.1 mg/dL (8.5-10.5); Carbon Dioxide 24 mmol/L (22-29); Chloride 98 mmol/L (98-107); Glomerular Filtration Rate 130.1 mL/min (90-130); Glucose 77 mg/dL (65-115); Osmolality Calculated 277 mOsm/kg (285-295); Potassium 3.5 mmol/L (3.5-5.1); Sodium 136 mmol/L (136-145)
[2023-01-18 04:09] LABS: Troponin 5 6HR Delta 18.63 ng/L (0-12)
--- NOTE | 2023-01-18 06:19 | PC.NURSE ---
patient has picc line to rue, non patent/unable to flush, scheduled to have picc pulled and port placed on tuesday per patient.
[2023-01-18] MEDS: ipratropium-albuterol 3 mL Neb INHALATION (07:43)
[2023-01-18] MEDS: apixaban 5 mg Tablet 10 MG PO ×2 (08:36→20:59)
[2023-01-18] MEDS: morphine ER (12 HR) 30 mg tablet 60 MG PO ×2 (09:38→20:59)
[2023-01-18] MEDS: cefTRIAXone 1,000 MG in sodium chloride 0.9% (plus) 50 ML 100 MG IV (09:40)
--- NOTE | 2023-01-18 10:45 | USCV_ITS ---
Judi Lam Age: 53 Gender: F : 1970 Exam Date: 01/18/2023 11:41 Ordering Phys: Prince Garibay MD Technologist: Vinayak Watson [place] [facility] [place]: [place] PROCEDURES: Venous duplex imaging was performed in only the right lower extremity. The following venous structures were evaluated: common femoral vein, profunda vein, proximal portion of the greater saphenous vein, superficial femoral vein, and the popliteal vein. In addition, the posterior tibial and peroneal trunk were evaluated. FINDINGS: Normal 2-D Doppler and augmentation and compressibility throughout the lower extremity venous structures. Additional imaging through the proximal calf veins also reveals no thrombus. Limited evaluation of the greater saphenous vein is patent with no thrombus. CONCLUSIONS No evidence of right lower extremity DVT. Mahesh Ortiz MD (Electronically Signed) Final Date: 18 January 2023 13:53 S
[2023-01-18] MEDS: azithromycin 500 MG in sodium chloride 0.9% 250 ML 250 MG IV (10:47)
[2023-01-18] MEDS: ALPRAZolam 0.5 mg Tablet PO ×2 (12:02→23:56)
[2023-01-18] MEDS: morphine IR 15 mg Tablet PO ×2 (17:51→23:56)
--- NOTE | 2023-01-18 18:12 | PM.PN ---
Subjective Subjective: Patient was seen this morning, she continues to complain of weakness, fatigue, tiredness, she tells me that she has her fentanyl patch on right now, it should be exchanged in 2 days, denies any fevers, no chills, no chest pain, Vitals/I&O/Wt Last Vital Signs Temp 98.3 F 01/18/23 16:00 Pulse 76 01/18/23 16:00 Resp 16 01/18/23 17:51 BP 103/65 01/18/23 16:00 Pulse Ox 98 01/18/23 16:00 O2 Del Method Room Air 01/18/23 07:44 01/18/23 01/18/23 01/18/23 06:59 14:59 22:59 Intake Total 240 / 240 1591.25 / 1591.25 1000 / 2591.25 Balance 240 / 240 1591.25 / 1591.25 1000 / 2591.25 Weight last 48 hrs Weight 58.967 kg Physical Exam Const: COMMON NORMALS: no acute distress and patient oriented x3 Resp: COMMON NORMALS: normal respiratory effort, No retractions and No use of accessory muscles AUSCULTATION: crackles and wheezes Cardio: COMMON NORMALS: regular rate, regular rhythm, S1 normal heart sound present and S2 normal heart sound present RATE: regular rate RHYTHM: regular rhythm HEART SOUNDS: S1 normal heart sound present and S2 normal heart sound present GI: COMMON NORMALS: Normal to inspection, nondistended, normoactive bowel sounds present and non-tender OTHER: Colostomy site looks clean and dry Extremity: COMMON NORMALS: no pedal edema Neuro: COMMON NORMALS: patient oriented x3 Psych: COMMON NORMALS: mental status grossly normal Data 01/17/23 20:30 01/18/23 02:51 A&P Assessment and plan (1) Pulmonary embolism: (2) Colon cancer metastasized to liver: (3) Dehydration: (4) Nausea & vomiting: (5) Hypokalemia: (6) Cancer related pain: (7) NSTEMI (non-ST elevated myocardial infarction): (8) Postobstructive pneumonia: Plan #Chest pain, shortness of breath most likely secondary to recent diagnosis of pulmonary embolism #Possible bronchiectasis/postobstructive pneumonia right middle lobe with partial collapse #Hypokalemia potassium, resolving #NSTEMI, 6-hour troponin 24 with a delta of 18.63 #Status post colostomy placement #Active chemotherapy, immunocompromise status #Chronic anticoagulation #Colon cancer with metastasis to liver #History of diverticulitis -Has chest pain complaints, will do telemetry monitoring. - Chest pain is like a tightness that comes and goes that she states she has had ever since she got diagnosed with cancer.. Will order cardiac echocardiogram, repeat troponin in the morning, will consider stress testing based on clinical progress ? To be continued on Eliquis at this time. Patient is on room air. ? 40 IV potassium administered in the ER. Potassium improving most likely low due to GI loss from colostomy output ? Patient does appear mildly dehydrated. Decrease fluids to 50 cc ? No pulmonary available, will need to have an outpatient bronchoscopy given CT findings however patient is asymptomatic at this time Dilated bronchi with prominent peribronchial thickening in the left lower lobe consistent with bronchiectasis and bronchitis. 3. ? Mild mediastinal and left hilar adenopathy consistent with reactive adenopathy. 4. ? Continued complete collapse of the right middle lobe with peribronchial thickening of the right middle lobe bronchus and segmental bronchi. -Given concerns for postobstructive pneumonia, cough, chest discomfort we will start her on broad-spectrum antibiotic therapy follow sputum cultures, and as she is immunocompromised on chemotherapy, ? Repeat blood cultures -Chronic pain, renew morphine 60 every 12 hours scheduled, morphine 15 mg every 6 hours as needed ? Will require inpatient admission Full code SCDs Eliquis should suffice for DVT prophylaxis Plan for today, order cardiac echo telemetry monitoring, monitor for chest pain, add aspirin, statin, repeat blood cultures, order Rocephin azithromycin, monitor respiratory status closely, follow echocardiogram consider stress testing, start home morphine Attestations Medical Necessity Statement*: Patient requires hospitalization for chest pain, recent history of pulmonary embolism, NSTEMI, postobstructive pneumonia Diagnoses Pulmonary embolism I26.99 Colon cancer metastasized to liver C18.9; C78.7 Dehydration E86.0 Nausea & vomiting R11.2 Hypokalemia E87.6 Cancer related pain G89.3 NSTEMI (non-ST elevated myocardial infarction) I21.4 Postobstructive pneumonia J18.9
--- NOTE | 2023-01-18 18:13 | USCV_ITS ---
Judi Lam Age: 53 Gender: F : 1970 Exam Date: 01/18/2023 20:24 Ordering Phys: Prince Garibay MD Technologist: BLESSING [place] [facility] [place]: NSTEMI. SOB, History of colon CA, Patient was diagnosed a few days ago with pulmonary emboli. No history of cardiac intervention. BP: 103 / 65 HR: 80 Rhythm: Sinus Technical Quality: Adequate MEASUREMENTS (Male / Female) Normal Values 2D ECHO LV Diastolic Diameter PLAX 3.5 cm 4.2 - 5.9 / 3.9 - 5.3 cm LV Systolic Diameter PLAX 2.3 cm IVS Diastolic Thickness 1.0 cm 0.6 - 1.0 / 0.6 - 0.9 cm IVS Systolic Thickness 1.4 cm LVPW Diastolic Thickness 1.2 cm 0.6 - 1.0 / 0.6 - 0.9 cm LVPW Systolic Thickness 1.6 cm LVOT Diameter 1.8 cm LV Ejection Fraction 2D Teich 65.1 % LV Ejection Fraction MOD 2C 66.3 % LV Ejection Fraction 2C AL 67.4 % LA Diameter 2.7 cm LA Width 2.2 cm LA Height 5.4 cm RA Width 3.1 cm RA Height 3.8 cm Aorta at Sinotubular Diameter 2.7 cm IVC Diameter 1.2 cm M-MODE Aortic Annulus Diameter 2.8 cm LA Ao Ratio MM 0.9 MV E Point Septal Separation 0.3 cm DOPPLER AV Peak Velocity 106.0 cm/s LVOT Peak Velocity 100.0 cm/s AV Area Cont Eq vti 2.6 cm squared AV Area Cont Eq pk 2.4 cm squared MV Area PHT 2.8 cm squared Mitral E to A Ratio 0.8 MV E' Velocity 36.5 cm/s Mitral E to MV E' Ratio 9.1 Mitral E to LV E' Lateral Ratio 7.9 Mitral E to LV E' Septal Ratio 10.7 TR Peak Velocity 277.8 cm/s TR Peak Gradient 30.9 mmHg TV Peak E Velocity 35.0 cm/s Right Atrial Pressure 5.0 mmHg Pulmonary Artery Systolic Pressu 35.9 mmHg PV Peak Velocity 92.0 cm/s RV Acceleration Time 0.1 s RV Ejection Time 0.3 s RV AcT/ET 0.3 FINDINGS Left Ventricle Left ventricle is normal in size. LV systolic function is normal with EF of 60 to 65%. No regional wall motion abnormalities are seen. Grade 1 diastolic dysfunction Right Ventricle Normal in size and function Right Atrium Normal in size Left Atrium Normal in size Mitral Valve Structurally normal mitral valve.Mild mitral regurgitation. Aortic Valve Structurally normal aortic valve. No significant stenosis or regurgitation. Tricuspid Valve Mild tricuspid regurgitation. RVSP is 35 to 40 mmHg. This is consistent with mild pulmonary hypertension. Pulmonic Valve Not well visualized Pericardium Normal Aorta Normal in size IVC Appears to be normal CONCLUSIONS LV systolic function is normal with EF of 60 to 65% Grade 1 diastolic dysfunction Mild mitral regurgitation Mild tricuspid regurgitation Mild pulmonary hypertension No comparison studies are available Pawel Marcelino MD (Electronically Signed) Final Date: 19 January 2023 11:01 S
[2023-01-18] MEDS: atorvastatin 40 mg Tablet PO (20:59)
[2023-01-19] VITALS (14 sets, daily range): BP systolic 93–157; BP diastolic 60–99; PULSE 62–104; RESP 14–18; TEMP 36.5–36.8; O2SAT 91–99
[2023-01-19] MEDS: pantoprazole 40 mg SDV IVP (00:47)
[2023-01-19 05:05] LABS: Basophils # 0.1 10^3/uL (0.0-0.1); Eosinophils # 0.3 10^3/uL (0.0-0.8); Eosinophils % 4.4 %; Hematocrit 30.3 % (37.0-47.0); Hemoglobin 9.1 g/dL (11.5-15.3); Lymphocytes # 3.1 10^3/uL (0.8-4.8); Lymphocytes % 44.2 %; Mean Corpuscular Hemoglobin 26.8 pg (28.0-34.0); Mean Corpuscular Volume 89.1 fl (81-99); Mean Platelet Volume 9.8 fL (7.4-10.4); Monocytes # 0.7 10^3/uL (0.2-0.9); Monocytes % 10.2 %; Neutrophils # 2.79 10^3/uL (1.8-7.7); Neutrophils % 39.9 %; Nucleated Red Blood Cells % 0 %; Platelet Count 247 10^3/cmm (130-400); Red Cell Distribution Width 17.5 % (12.1-15.1)
[2023-01-19 05:18] LABS: Troponin T (5th) Once 6 ng/L (0-10)
[2023-01-19 05:23] LABS: Anion Gap 13.2 (5-19); Blood Urea Nitrogen 2 mg/dL (6-20); Calcium 8.1 mg/dL (8.5-10.5); Carbon Dioxide 22 mmol/L (22-29); Chloride 111 mmol/L (98-107); Glomerular Filtration Rate 130.1 mL/min (90-130); Glucose 99 mg/dL (65-115); Magnesium 1.7 mg/dL (1.7-2.3); Osmolality Calculated 292 mOsm/kg (285-295); Potassium 3.2 mmol/L (3.5-5.1); Sodium 143 mmol/L (136-145)
[2023-01-19] MEDS: aspirin 81 mg EC Tablet PO (08:59)
[2023-01-19] MEDS: potassium chloride ER 20 mEq Tablet 40 MEQ PO (08:59)
[2023-01-19] MEDS: morphine IR 15 mg Tablet PO ×2 (08:59→19:49)
[2023-01-19] MEDS: apixaban 5 mg Tablet 10 MG PO ×2 (10:07→20:32)
[2023-01-19] MEDS: morphine ER (12 HR) 30 mg tablet 60 MG PO ×2 (10:08→21:58)
[2023-01-19] MEDS: cefTRIAXone 1,000 MG in sodium chloride 0.9% (plus) 50 ML 100 MG IV (10:08)
[2023-01-19] MEDS: sodium chloride 0.9% 1,000 ML 50 ML IV (10:19)
[2023-01-19] MEDS: alteplase 1 mg/mL SDV 2 mL 2 MG INTRACATH (10:48)
[2023-01-19] MEDS: water for injection-sterile 10 ML (10:55)
[2023-01-19] MEDS: azithromycin 500 MG in sodium chloride 0.9% 250 ML 250 MG IV (10:58)
[2023-01-19] MEDS: ALPRAZolam 0.5 mg Tablet PO (14:01)
--- NOTE | 2023-01-19 14:38 | PM.PN ---
Subjective Subjective: Patient was seen this morning, she is ambulating around the room she actually took a shower she feels better this morning, no chest pain, no palpitations Vitals/I&O/Wt Last Vital Signs Temp 97.8 F 01/19/23 11:20 Pulse 104 H 01/19/23 11:21 Resp 16 01/19/23 11:21 BP 98/60 01/19/23 12:55 Pulse Ox 99 01/19/23 11:21 O2 Del Method Room Air 01/19/23 11:21 01/18/23 01/19/23 01/19/23 22:59 06:59 14:59 Intake Total 1708.75 / 3300.00 200 / 3500.00 1255.833 / 1255.833 Balance 1708.75 / 3300.00 200 / 3500.00 1255.833 / 1255.833 Weight last 48 hrs Weight 58.967 kg Physical Exam Const: COMMON NORMALS: no acute distress and patient oriented x3 HENMT: COMMON NORMALS: normocephalic HEAD & SCALP: normocephalic Resp: COMMON NORMALS: normal respiratory effort, No retractions, No use of accessory muscles and clear to auscultation bilaterally AUSCULTATION: clear to auscultation bilaterally Cardio: COMMON NORMALS: regular rate, regular rhythm, S1 normal heart sound present and S2 normal heart sound present RATE: regular rate RHYTHM: regular rhythm HEART SOUNDS: S1 normal heart sound present and S2 normal heart sound present GI: COMMON NORMALS: Normal to inspection, nondistended, normoactive bowel sounds present and Soft to palpation PALPATION: Yes Soft to palpation Extremity: COMMON NORMALS: no pedal edema Neuro: COMMON NORMALS: patient oriented x3 Psych: COMMON NORMALS: mental status grossly normal Data 01/19/23 04:32 01/19/23 04:32 Micro: Microbiology 01/18/23 20:00 Blood Culture - Preliminary Blood SPECIMEN COLLECTED 01/18/23 18:59 Blood Culture - Preliminary Blood SPECIMEN COLLECTED A&P Assessment and plan (1) Pulmonary embolism: (2) Colon cancer metastasized to liver: (3) Dehydration: (4) Nausea & vomiting: (5) Hypokalemia: (6) Cancer related pain: (7) NSTEMI (non-ST elevated myocardial infarction): (8) Postobstructive pneumonia: Plan #Chest pain, shortness of breath most likely secondary to recent diagnosis of pulmonary embolism #Possible bronchiectasis/postobstructive pneumonia right middle lobe with partial collapse #Hypokalemia potassium, resolving #NSTEMI, 6-hour troponin 24 with a delta of 18.63 #Status post colostomy placement #Active chemotherapy, immunocompromise status #Chronic anticoagulation #Colon cancer with metastasis to liver #History of diverticulitis -Has chest pain complaints, will do telemetry monitoring. - Chest pain is like a tightness that comes and goes that she states she has had ever since she got diagnosed with cancer. -Cardiac echo LV systolic function is normal with EF of 60 to 65% ?Grade 1 diastolic dysfunction ?Mild mitral regurgitation ?Mild tricuspid regurgitation ?Mild pulmonary hypertension ?No comparison studies are available ? To be continued on Eliquis at this time. Patient is on room air. ? Monitor serum potassium ? Patient does appear mildly dehydrated. Decrease fluids to 50 cc ? No pulmonary available, will need to have an outpatient bronchoscopy given CT findings however patient is asymptomatic at this time Dilated bronchi with prominent peribronchial thickening in the left lower lobe consistent with bronchiectasis and bronchitis. 3. ? Mild mediastinal and left hilar adenopathy consistent with reactive adenopathy. 4. ? Continued complete collapse of the right middle lobe with peribronchial thickening of the right middle lobe bronchus and segmental bronchi. -Given concerns for postobstructive pneumonia, cough, chest discomfort we will start her on broad-spectrum antibiotic therapy follow sputum cultures, and as she is immunocompromised on chemotherapy, ? Repeat blood cultures -Chronic pain, renew morphine 60 every 12 hours scheduled, morphine 15 mg every 6 hours as needed ? Will require inpatient admission Full code SCDs Eliquis should suffice for DVT prophylaxis Plan for today, continue antibiotic therapy, monitor respiratory status, plan on discharging in the next 24 hours Attestations Medical Necessity Statement*: Requires hospital patient for postobstructive pneumonia, shortness of breath, chest pain Diagnoses Pulmonary embolism I26.99 Colon cancer metastasized to liver C18.9; C78.7 Dehydration E86.0 Nausea & vomiting R11.2 Hypokalemia E87.6 Cancer related pain G89.3 NSTEMI (non-ST elevated myocardial infarction) I21.4 Postobstructive pneumonia J18.9
[2023-01-19] MEDS: atorvastatin 40 mg Tablet PO (20:33)
--- NOTE | 2023-01-19 20:40 | PC.NURSE ---
APPETITE Pt was hungry when she woke up this evening. Says she slept thru dinner. Ate 2 small cans of vegetable soup & ice cream. Says really tasted good to her for a change. Has not had a very good appetite
[2023-01-20] VITALS (15 sets, daily range): BP systolic 99–119; BP diastolic 68–82; PULSE 71–92; RESP 16–20; TEMP 36.6–36.9; O2SAT 92–98
[2023-01-20] MEDS: ALPRAZolam 0.5 mg Tablet PO ×2 (00:15→13:51)
[2023-01-20] MEDS: pantoprazole 40 mg SDV IVP (00:26)
[2023-01-20] MEDS: morphine IR 15 mg Tablet PO ×3 (02:21→17:59)
[2023-01-20 05:15] LABS: Basophils # 0.1 10^3/uL (0.0-0.1); Basophils % 0.6 %; Eosinophils # 0.4 10^3/uL (0.0-0.8); Eosinophils % 4.7 %; Hematocrit 29.6 % (37.0-47.0); Hemoglobin 9.1 g/dL (11.5-15.3); Lymphocytes # 3.1 10^3/uL (0.8-4.8); Lymphocytes % 36.2 %; Mean Corpuscular HGB Conc 30.7 g/dL (30.0-36.0); Mean Corpuscular Hemoglobin 27.2 pg (28.0-34.0); Mean Corpuscular Volume 88.4 fl (81-99); Mean Platelet Volume 10.2 fL (7.4-10.4); Monocytes # 0.8 10^3/uL (0.2-0.9); Monocytes % 9.2 %; Neutrophils # 4.15 10^3/uL (1.8-7.7); Neutrophils % 48.8 %; Nucleated Red Blood Cells % 0 %; Platelet Count 233 10^3/cmm (130-400); Red Blood Count 3.35 10^6/uL (4.1-5.3); Red Cell Distribution Width 17.5 % (12.1-15.1); White Blood Count 8.5 10^3/uL (4.0-10.0)
[2023-01-20 05:36] LABS: Alanine Aminotransferase < 5 U/L (0-33); Albumin Level 2.7 g/dL (3.5-5.2); Alkaline Phosphatase 98 U/L (35-105); Anion Gap 10.8 (5-19); Aspartate Amino Transferase 19 U/L (0-32); Blood Urea Nitrogen 2 mg/dL (6-20); Calcium 8.3 mg/dL (8.5-10.5); Carbon Dioxide 27 mmol/L (22-29); Chloride 111 mmol/L (98-107); Globulin 2.3 g/dL (1.3-4.6); Glomerular Filtration Rate 168.3 mL/min (90-130); Glucose 81 mg/dL (65-115); Magnesium 1.6 mg/dL (1.7-2.3); Osmolality Calculated 295 mOsm/kg (285-295); Phosphorus 3.7 mg/dL (2.5-4.5); Potassium 3.8 mmol/L (3.5-5.1); Sodium 145 mmol/L (136-145); Total Bilirubin 0.3 mg/dL (0.15-1.2)
[2023-01-20] MEDS: aspirin 81 mg EC Tablet PO (08:28)
[2023-01-20] MEDS: apixaban 5 mg Tablet 10 MG PO ×2 (08:28→20:35)
[2023-01-20] MEDS: cefTRIAXone 1,000 MG in sodium chloride 0.9% (plus) 50 ML 100 MG IV (09:51)
[2023-01-20] MEDS: morphine ER (12 HR) 30 mg tablet 60 MG PO ×2 (09:51→21:09)
--- NOTE | 2023-01-20 12:35 | P.PN_ITS ---
Subjective Subjective: Patient was seen this morning, continues to feel weak fatigued and tired and short of breath Vitals/I&O/Wt Last Vital Signs Temp 97.9 F 01/20/23 11:45 Pulse 92 01/20/23 11:45 Resp 16 01/20/23 11:45 BP 99/68 01/20/23 11:45 Pulse Ox 94 01/20/23 11:45 O2 Del Method Room Air 01/20/23 07:58 01/19/23 01/20/23 01/20/23 22:59 06:59 14:59 Intake Total 360 / 2619.733 240 / 2859.733 410 / 410 Balance 360 / 2619.733 240 / 2859.733 410 / 410 Physical Exam Const: COMMON NORMALS: no acute distress and patient oriented x3 Resp: COMMON NORMALS: normal respiratory effort, No retractions, No use of accessory muscles and clear to auscultation bilaterally AUSCULTATION: clear to auscultation bilaterally Cardio: COMMON NORMALS: regular rate, regular rhythm, S1 normal heart sound present and S2 normal heart sound present RATE: regular rate RHYTHM: regular rhythm HEART SOUNDS: S1 normal heart sound present and S2 normal heart sound present GI: COMMON NORMALS: Normal to inspection, nondistended, normoactive bowel sounds present, non-tender and no masses Extremity: COMMON NORMALS: no pedal edema Neuro: COMMON NORMALS: patient oriented x3 Psych: COMMON NORMALS: mental status grossly normal Data 01/20/23 04:35 01/20/23 04:35 Micro: Microbiology 01/18/23 20:00 Blood Culture - Preliminary Blood NEGATIVE TO DATE 01/18/23 18:59 Blood Culture - Preliminary Blood NEGATIVE TO DATE A&P Assessment and plan (1) Pulmonary embolism: (2) Colon cancer metastasized to liver: (3) Dehydration: (4) Nausea & vomiting: (5) Hypokalemia: (6) Cancer related pain: (7) NSTEMI (non-ST elevated myocardial infarction): (8) Postobstructive pneumonia: (9) 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 Repeat blood cultures clear #History of Serratia marcescens sputum cultures -Has chest pain complaints, resolved, will do telemetry monitoring. - Chest pain is like a tightness that comes and goes that she states she has had ever since she got diagnosed with cancer. -Cardiac echo LV systolic function is normal with EF of 60 to 65% ?Grade 1 diastolic dysfunction ?Mild mitral regurgitation ?Mild tricuspid regurgitation ?Mild pulmonary hypertension ?No comparison studies are available ? To be continued on Eliquis at this time. Patient is on room air. ? Monitor serum potassium ? Patient does appear mildly dehydrated. Decrease fluids to 50 cc ? No pulmonary available, will need to have an outpatient bronchoscopy given CT findings however patient is asymptomatic at this time Dilated bronchi with prominent peribronchial thickening in the left lower lobe consistent with bronchiectasis and bronchitis. 3. ? Mild mediastinal and left hilar adenopathy consistent with reactive adenopathy. 4. ? Continued complete collapse of the right middle lobe with peribronchial thickening of the right middle lobe bronchus and segmental bronchi. -Given concerns for postobstructive pneumonia, cough, chest discomfort we will start her on broad-spectrum antibiotic therapy follow sputum cultures, and as she is immunocompromised on chemotherapy, ? Repeat blood cultures so far negative -Chronic pain, renew morphine 60 every 12 hours scheduled, morphine 15 mg every 6 hours as needed ? Of note during her prior admission on 01/04/2023 one of her blood cultures showed positive for Proteus species, I do not believe she was discharged with IV antibiotic treatments, so far her blood cultures have been negative, as she is immunocompromise she is on chemotherapy we will broaden antibiotic coverage to cefepime follow blood cultures until they are -72 hours before discharge I have repeated the UA, and review of the CT scan does not show any significant obstructive uropathy or nephrolithiasis -Her sputum cultures also showed Serratia marcescens continue cefepime Full code SCDs Eliquis should suffice for DVT prophylaxis Plan for today, broaden antibiotic coverage to cefepime, follow blood cultures, I would discharge patient after blood cultures are negative at least so 72 to 96 hours before discharge, given her immunocompromise state Attestations 2 Medical Necessity Statement*: Patient requires hospitalization for Serratia marcescens sputum cultures, history of Proteus Mirabella's bacteremia, without IV antibiotic treatments, postobstructive pneumonia Diagnoses Pulmonary embolism I26.99 Colon cancer metastasized to liver C18.9; C78.7 Dehydration E86.0 Nausea & vomiting R11.2 Hypokalemia E87.6 Cancer related pain G89.3 NSTEMI (non-ST elevated myocardial infarction) I21.4 Postobstructive pneumonia J18.9 Bacteremia due to Proteus species R78.81; B96.4
[2023-01-20] MEDS: azithromycin 500 MG in sodium chloride 0.9% 250 ML 250 MG IV (12:38)
[2023-01-20] MEDS: cefepime 1,000 MG in sodium chloride 0.9% (plus) 50 ML 100 MG IV (17:52)
[2023-01-20] MEDS: atorvastatin 40 mg Tablet PO (20:35)
[2023-01-21] VITALS (15 sets, daily range): BP systolic 98–130; BP diastolic 65–87; PULSE 82–108; RESP 15–18; TEMP 36.4–36.9; O2SAT 95–99
[2023-01-21] MEDS: pantoprazole 40 mg SDV IVP (01:32)
[2023-01-21] MEDS: morphine IR 15 mg Tablet PO ×3 (03:10→19:04)
[2023-01-21] MEDS: ALPRAZolam 0.5 mg Tablet PO ×2 (03:11→14:10)
[2023-01-21 04:08] LABS: Basophils # 0.1 10^3/uL (0.0-0.1); Basophils % 0.7 %; Eosinophils # 0.4 10^3/uL (0.0-0.8); Eosinophils % 4.3 %; Lymphocytes # 3.3 10^3/uL (0.8-4.8); Lymphocytes % 36.8 %; Mean Corpuscular Hemoglobin 26.9 pg (28.0-34.0); Mean Corpuscular Volume 86.8 fl (81-99); Mean Platelet Volume 10.6 fL (7.4-10.4); Monocytes # 0.9 10^3/uL (0.2-0.9); Monocytes % 9.4 %; Neutrophils # 4.36 10^3/uL (1.8-7.7); Neutrophils % 48.5 %; Nucleated Red Blood Cells % 0 %; Platelet Count 234 10^3/cmm (130-400); Red Blood Count 3.34 10^6/uL (4.1-5.3); Red Cell Distribution Width 17.4 % (12.1-15.1)
[2023-01-21 04:33] LABS: Alanine Aminotransferase < 5 U/L (0-33); Albumin Level 2.7 g/dL (3.5-5.2); Alkaline Phosphatase 85 U/L (35-105); Anion Gap 11.3 (5-19); Aspartate Amino Transferase 9 U/L (0-32); Blood Urea Nitrogen 4 mg/dL (6-20); Calcium 8.3 mg/dL (8.5-10.5); Carbon Dioxide 27 mmol/L (22-29); Chloride 107 mmol/L (98-107); Creatinine Clr Calc Pharmacy 98.7772; Globulin 2.4 g/dL (1.3-4.6); Glomerular Filtration Rate 105.4 mL/min (90-130); Glucose 82 mg/dL (65-115); Magnesium 1.4 mg/dL (1.7-2.3); Osmolality Calculated 290 mOsm/kg (285-295); Phosphorus 4.2 mg/dL (2.5-4.5); Potassium 3.3 mmol/L (3.5-5.1); Sodium 142 mmol/L (136-145); Total Bilirubin 0.3 mg/dL (0.15-1.2); Total Protein 5.1 g/dL (6.6-8.7)
[2023-01-21] MEDS: cefepime 1,000 MG in sodium chloride 0.9% (plus) 50 ML 100 MG IV ×2 (07:06→17:37)
--- NOTE | 2023-01-21 08:49 | P.PN_ITS ---
Subjective Subjective: Seen this AM States she continues to feel weak, fatigue and tired. SOB has improved from yday. States she does not feel comfortable going home today. desires one more night and to await cultures tolerating PO well, Vitals/I&O/Wt Last Vital Signs Temp 98.1 F 01/21/23 08:00 Pulse 89 01/21/23 08:00 Resp 16 01/21/23 08:00 BP 112/72 01/21/23 08:00 Pulse Ox 98 01/21/23 08:00 O2 Del Method Nasal Cannula 01/21/23 08:00 01/20/23 01/21/23 01/21/23 22:59 06:59 14:59 Intake Total 770 / 1670 480 / 2150 50 / 50 Balance 770 / 1670 480 / 2150 50 / 50 Physical Exam Const: COMMON NORMALS: no acute distress and patient oriented x3 Resp: COMMON NORMALS: normal respiratory effort, No retractions, No use of accessory muscles and clear to auscultation bilaterally AUSCULTATION: clear to auscultation bilaterally Cardio: COMMON NORMALS: regular rate, regular rhythm, S1 normal heart sound present and S2 normal heart sound present RATE: regular rate RHYTHM: regular rhythm HEART SOUNDS: S1 normal heart sound present and S2 normal heart sound present GI: COMMON NORMALS: Normal to inspection, nondistended, normoactive bowel sounds present, non-tender and no masses Extremity: COMMON NORMALS: no pedal edema Neuro: COMMON NORMALS: patient oriented x3 Psych: COMMON NORMALS: mental status grossly normal Data 01/21/23 03:06 01/21/23 03:06 A&P Assessment and plan (1) Pulmonary embolism: (2) Colon cancer metastasized to liver: (3) Dehydration: (4) Nausea & vomiting: (5) Hypokalemia: (6) Cancer related pain: (7) NSTEMI (non-ST elevated myocardial infarction): (8) Postobstructive pneumonia: (9) Bacteremia due to Proteus species: (10) Hypomagnesemia: Plan #Chest pain, shortness of breath most likely secondary to recent diagnosis of pulmonary embolism #Possible bronchiectasis/postobstructive pneumonia right middle lobe with partial collapse #Hypokalemia potassium #Hypomagnesemia #NSTEMI, resolved #Status post colostomy placement #Active chemotherapy, immunocompromise status #Chronic anticoagulation -eliquis #Colon cancer with metastasis to liver #History of diverticulitis #History of Proteus bacteremia, discharged without IV antibiotic treatment? Repeat blood cultures clear #History of Serratia marcescens sputum cultures. -Cardiac echo: LV Ef 60-65%, G1DD, mild MR/TR, mild Pulmonary HTN -Continue eliquis, pt on RA. no SOB -K and Mg low this AM, repleated -NS 50cc/hr, encouraged PO intake -on Discharge: will need Dr. BAKER referral for OP bronchoscopy given CT findings. pt Asx at this time -CT: dilated bronchi with peribronchal thickening on L consisted with bronchiectasis. mild mediastinal and L hilar adenomapthy. Collapse of R middle lobe with peribronchial thickening in R lobe. -on Discharge will need referral to [facility] for OP stress test given ECHO findings, CP Sx, and NSTEMI r/o on admit -Given concerns for postobstructive pneumonia, cough, chest discomfort we will start her on broad-spectrum antibiotic therapy follow sputum cultures, and as she is immunocompromised on chemotherapy, ? Repeat blood cultures so far negative. will await 96hrs -Chronic pain, renew morphine 60 every 12 hours scheduled, morphine 15 mg every 6 hours as needed ? Of note during her prior admission on 01/04/2023 one of her blood cultures showed positive for Proteus species, I do not believe she was discharged with IV antibiotic treatments, so far her blood cultures have been negative, as she is immunocompromise she is on chemotherapy we will broaden antibiotic coverage to cefepime follow blood cultures until they are -72 hours before discharge I have repeated the UA, and review of the CT scan does -Her sputum cultures also showed Serratia marcescens continue cefepime Full code SCDs Eliquis should suffice for DVT prophylaxis IV Cefepime, pending Cx Plan for today, broaden antibiotic coverage to cefepime, follow blood cultures, I would discharge patient after blood cultures are negative at least so 72 to 96 hours before discharge, given her immunocompromise state Attestations Medical Necessity Statement*: Patient requires hospitalization for Serratia marcescens sputum cultures, histo ry of Proteus Mirabella's bacteremia, without IV antibiotic treatments, postobstructive pneumonia. awaiting 96hr negative Seven as pt on chemo Coding Level of Care Code 04584 Diagnoses Pulmonary embolism I26.99 Colon cancer metastasized to liver C18.9; C78.7 Dehydration E86.0 Nausea & vomiting R11.2 Hypokalemia E87.6 Cancer related pain G89.3 NSTEMI (non-ST elevated myocardial infarction) I21.4 Postobstructive pneumonia J18.9 Bacteremia due to Proteus species R78.81; B96.4 Hypomagnesemia E83.42
[2023-01-21] MEDS: potassium chloride ER 20 mEq Tablet 40 MEQ PO ×2 (09:14→11:22)
[2023-01-21] MEDS: morphine ER (12 HR) 30 mg tablet 60 MG PO ×2 (09:14→21:50)
[2023-01-21] MEDS: aspirin 81 mg EC Tablet PO (09:14)
[2023-01-21] MEDS: apixaban 5 mg Tablet 10 MG PO ×2 (09:14→20:17)
--- NOTE | 2023-01-21 10:33 | PC.CHAP ---
Pastoral Care Encounter/Spiritual Assessment Type of Contact [] Declined assistant manager visit [] Patient/Family/Request visit [] Outpatient visit [] Follow-up visit [] Physician referral [] Code/Alert [x] Routine visit [] Staff referral [] Actively dying [] Patient sleeping [x] Family support [] [] Out of room [] Palliative care [] [] Receiving care in room [] Pre-surgical visit [] Trauma [] Long length of stay [] ICU visit [] Other: Relational/Emotional Strength [x] Patient feels connected with others/family/visitors/staff [] Distress [] Loneliness/isolation [] Abandonment Spirituality of Patient []x Person of Margaret [] Attends Buddhism of their Margaret [] Believes in Prayer [] Reads Bible or Latter Day materials [] There are Spiritual issues to be addressed 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 [x] Prayer [x] Active listening [x] Non-anxious presence [] Spiritual/emotional support [] Crisis/trauma care [] Spiritual counseling [] Bereavement support [] Provided bereavement packet [] Provided Bible/devotional materials [] Provided toy/stuffed animal, coloring book to patient or family member [] Provided Communion [] Anointing/[place] [] Salvation [x] Completed spiritual assessment [] Other: Impact on Illness or Injury [] Angry [] Fearful [] Anxious [] Often cries [] Exhaustion [] Unable to work [] Unable to attend nondenominational [] Unable to walk/stand [] Unable to read [] Unable to drive [] Unable to eat/drink [] Unable to sleep [] Unable to be with family [] Patient intubated [] Other: Summary Time spent with patient 15 min
[2023-01-21 11:00] LABS: Glucose Point of Care 101 mg/dL (70-110)
[2023-01-21] MEDS: azithromycin 500 MG in sodium chloride 0.9% 250 ML 250 MG IV (11:21)
[2023-01-21] MEDS: fentaNYL 50 mcg Patch 1 PATCH TRANSDERMA (14:10)
[2023-01-21 17:46] LABS: Add Urine Microscopic? NO; Charge for UA Resulting for Rev
[2023-01-21 17:52] LABS: Bilirubin Urine Neg (Negative); Blood Urine Neg (Negative); Glucose Urine UA Norm (Normal); Ketones Urine Negative (Negative); Leukocyte Esterase Urine Negative (Negative); Nitrate Urine Negative (Negative); Protein Urine Neg (Negative); Specific Gravity, Urine 1.005 (1.005-1.030); Urine Appearance Clear (CLEAR); Urine Color Yellow (Yellow); Urobilinogen Urine Neg (Negative); pH Urine 7 (5-7)
[2023-01-21] MEDS: atorvastatin 40 mg Tablet PO (20:17)
[2023-01-22] VITALS (11 sets, daily range): BP systolic 91–115; BP diastolic 62–76; PULSE 81–99; RESP 15–18; TEMP 36.5–36.7; O2SAT 92–98
[2023-01-22] MEDS: morphine IR 15 mg Tablet PO ×3 (00:44→14:26)
[2023-01-22] MEDS: pantoprazole 40 mg SDV IVP (00:44)
[2023-01-22] MEDS: ALPRAZolam 0.5 mg Tablet PO (04:03)
[2023-01-22 05:33] LABS: Basophils # 0.1 10^3/uL (0.0-0.1); Basophils % 0.9 %; Eosinophils # 0.4 10^3/uL (0.0-0.8); Hemoglobin 8.7 g/dL (11.5-15.3); Lymphocytes # 2.9 10^3/uL (0.8-4.8); Lymphocytes % 35.3 %; Mean Corpuscular HGB Conc 31.1 g/dL (30.0-36.0); Mean Corpuscular Hemoglobin 27.7 pg (28.0-34.0); Mean Corpuscular Volume 89.2 fl (81-99); Mean Platelet Volume 10.8 fL (7.4-10.4); Monocytes # 0.8 10^3/uL (0.2-0.9); Monocytes % 10.2 %; Neutrophils # 3.93 10^3/uL (1.8-7.7); Neutrophils % 48.1 %; Nucleated Red Blood Cells % 0 %; Platelet Count 203 10^3/cmm (130-400); Red Blood Count 3.14 10^6/uL (4.1-5.3); Red Cell Distribution Width 17.6 % (12.1-15.1); White Blood Count 8.2 10^3/uL (4.0-10.0)
[2023-01-22] MEDS: cefepime 1,000 MG in sodium chloride 0.9% (plus) 50 ML 100 MG IV (05:45)
[2023-01-22 05:54] LABS: Alanine Aminotransferase < 5 U/L (0-33); Albumin Level 2.6 g/dL (3.5-5.2); Alkaline Phosphatase 76 U/L (35-105); Anion Gap 10.9 (5-19); Aspartate Amino Transferase 9 U/L (0-32); Blood Urea Nitrogen 5 mg/dL (6-20); Calcium 8.6 mg/dL (8.5-10.5); Carbon Dioxide 27 mmol/L (22-29); Chloride 105 mmol/L (98-107); Globulin 2.2 g/dL (1.3-4.6); Glomerular Filtration Rate 168.3 mL/min (90-130); Glucose 95 mg/dL (65-115); Magnesium 1.6 mg/dL (1.7-2.3); Osmolality Calculated 285 mOsm/kg (285-295); Phosphorus 3.5 mg/dL (2.5-4.5); Potassium 3.9 mmol/L (3.5-5.1); Sodium 139 mmol/L (136-145); Total Bilirubin 0.3 mg/dL (0.15-1.2); Total Protein 4.8 g/dL (6.6-8.7)
--- NOTE | 2023-01-22 07:10 | PC.NURSE ---
Report received from Bertha KHALIL.
[2023-01-22] MEDS: aspirin 81 mg EC Tablet PO (08:07)
[2023-01-22] MEDS: apixaban 5 mg Tablet 10 MG PO (08:07)
[2023-01-22] MEDS: morphine ER (12 HR) 30 mg tablet 60 MG PO (10:20)
[2023-01-22] MEDS: azithromycin 500 MG in sodium chloride 0.9% 250 ML 250 MG IV (10:21)
--- NOTE | 2023-01-22 12:33 | P.DS_ITS ---
Discharge Providers Date of Admission: 01/18/23 18:00 Date of Discharge: January 22, 2023 Attending Provider at Admission: Cindy Herrera MD Attending Provider at Discharge: Hemant Madrigal MD Primary Care Provider: Clarice Perez MD Diagnoses at Discharge Discharge Diagnosis (1) Pulmonary embolism: Status: Acute (2) Colon cancer metastasized to liver: Status: Acute (3) Dehydration: Status: Acute (4) Nausea & vomiting: Status: Acute (5) Hypokalemia: Status: Acute (6) Cancer related pain: Status: Acute (7) NSTEMI (non-ST elevated myocardial infarction): Status: Acute (8) Postobstructive pneumonia: Status: Acute (9) Bacteremia due to Proteus species: Status: Acute (10) Hypomagnesemia: Status: Acute Reason for Visit Reason for Visit: sob, chest pain Hospital Course Hospital Course 53yo F with PMHx of Colon CA with mets to the liver (colostomy), diverticulitis, PNA and recent PE was admitted for SOB and CP, recently started on eliquis for PE. Pt has Hx of colon CA being treated via Chemotherapy by [facility] oncology. Pt admitted and diagnosed with NSTEMI. ? CT chest abdomen pelvis was done which showed stable occlusive pulmonary emboli.? Dilated bronchi with prominent peribronchial thickening in left lower lobe consistent with bronchiectasis and bronchitis.? Mild mediastinal and left hilar adenopathy consistent with reactive adenopathy.? Continued complete collapse of right middle lobe with peribronchial thickening of right middle lobe bronchus and segmental bronchi. ECHO showed EF 60-65% with G1DD. During hospitalization pt has multiple electrolyte derangements with low Mg and K. Given concern for postobstructive PNA/CP/and cough we placed her on broad spec Abx. Of note during her prior admission on 01/04/2023 one of her blood cultures showed positive for Proteus species. Due to her immunocompromised state we watched for 96hrs and cultures continued to be negative. Sputum cultures showed Serratia Marcescens. Pt placed on cefepime and tolerated it well. Chronic pain well controlled. At time of discharge pt stated she was feeling improved. we will continue Abx for another 3 days, discharge her on medication to help with anxiety and send referrals. will send referral to cardiology for outpatient stress test. will send to Dr. Cota for bronchoscopy 2/2 collapsed R middle lobe which is likely obstructive. Physical Exam Const: COMMON NORMALS: no acute distress and patient oriented x3 Resp: COMMON NORMALS: normal respiratory effort, No retractions, No use of a ccessory muscles and clear to auscultation bilaterally AUSCULTATION: clear to auscultation bilaterally Cardio: COMMON NORMALS: regular rate, regular rhythm, S1 normal heart sound present and S2 normal heart sound present RATE: regular rate RHYTHM: regular rhythm HEART SOUNDS: S1 normal heart sound present and S2 normal heart sound present GI: COMMON NORMALS: Normal to inspection, nondistended, normoactive bowel sounds present, non-tender and no masses Extremity: COMMON NORMALS: no pedal edema Neuro: COMMON NORMALS: patient oriented x3 Psych: COMMON NORMALS: mental status grossly normal Discharge Data Studies Completed and Pending Completed Studies During Hospitalization Category Date Time Status CT angio chest w abd pel w con Stat Cat Scan 01/17/23 19:58 Completed XR chest 1V portable [id number] Stat Exams 01/17/23 18:36 [place] [id number] Routine Ultrasound 01/18/23 10:45 Completed CV. echo complete* [id number] Routine Ultrasound 01/18/23 18:13 Completed Pending at discharge Category Date Time Status Blood Culture Stat Lab 01/18/23 20:00 Results Sputum Culture and Gram Stain Stat Lab 01/18/23 01:03 Uncollected Radiology Impressions Chest X-Ray 01/17/23 18:36 IMPRESSION: 1. Negative for infiltrate. 2. Right-sided PICC line with tip approaching the atrial caval junction. Chest/Abdomen/Pelvis CT 01/17/23 19:58 IMPRESSION: 1. Stable occlusive pulmonary emboli/chronically occluded pulmonary arteries in the left lower lobe. 2. Dilated bronchi with prominent peribronchial thickening in the left lower lobe consistent with bronchiectasis and bronchitis. 3. Mild mediastinal and left hilar adenopathy consistent with reactive adenopathy. 4. Continued complete collapse of the right middle lobe with peribronchial thickening of the right middle lobe bronchus and segmental bronchi. 5. Continued non perfusion to the right middle lobe suggesting possibly chronically occluded right middle lobe pulmonary arteries. 6. No obvious acute pulmonary embolus. 7. Right heart strain with RV/LV ratio 1.2. Previously the RV/LV ratio was 1.3. IMPRESSION: 1. Left lower quadrant colostomy. 2. Rectosigmoid stump with partially expanded metallic stent in the sigmoid colon portion of the rectosigmoid stump. COMMENTS: Consistent with the [employer]'s Incidental Findings Committee white paper (J Am Maci Radiol 2018): Any incidental renal lesion less than 1 cm or classified as too small to characterize, or any incidental cystic renal lesion characterized as simple-appearing, is likely benign. No follow-up imaging is recommended for these lesions per consensus recommendations based on imaging criteria. Laboratory Results WBC 8.2 10^3/uL (4.0-10.0) 01/22/23 04:33 RBC 3.14 10^6/uL (4.1-5.3) L 01/22/23 04:33 Hgb 8.7 g/dL (11.5-15.3) L 01/22/23 04:33 Hct 28.0 % (37.0-47.0) L 01/22/23 04:33 MCV 89.2 fl (81-99) 01/22/23 04:33 MCH 27.7 pg (28.0-34.0) L 01/22/23 04:33 MCHC 31.1 g/dL (30.0-36.0) 01/22/23 04:33 RDW 17.6 % (12.1-15.1) H 01/22/23 04:33 Plt Count 203 10^3/cmm (130-400) 01/22/23 04:33 MPV 10.8 fL (7.4-10.4) H 01/22/23 04:33 Neut % (Auto) 48.1 % 01/22/23 04:33 Lymph % (Auto) 35.3 % 01/22/23 04:33 [place] % (Auto) 10.2 % 01/22/23 04:33 Eos % (Auto) 5.0 % 01/22/23 04:33 Baso % (Auto) 0.9 % 01/22/23 04:33 Neut # (Auto) 3.93 10^3/uL (1.8-7.7) 01/22/23 04:33 Lymph # (Auto) 2.9 10^3/uL (0.8-4.8) 01/22/23 04:33 [place] # (Auto) 0.8 10^3/uL (0.2-0.9) 01/22/23 04:33 Eos # (Auto) 0.4 10^3/uL (0.0-0.8) 01/22/23 04:33 Baso # (Auto) 0.1 10^3/uL (0.0-0.1) 01/22/23 04:33 Nucleated RBC % (auto) 0 % 01/22/23 04:33 Nucleated RBCs # 0.0 /100WBC 01/22/23 04:33 PT 21.10 SECONDS (12.1-14.9) H 01/17/23 20:30 INR 1.75 (0.8-1.2) H 01/17/23 20:30 Sodium 139 mmol/L (136-145) 01/22/23 04:33 Potassium 3.9 mmol/L (3.5-5.1) 01/22/23 04:33 Chloride 105 mmol/L (98-107) 01/22/23 04:33 Carbon Dioxide 27 mmol/L (22-29) 01/22/23 04:33 Anion Gap 10.9 (5-19) 01/22/23 04:33 BUN 5 mg/dL (6-20) L 01/22/23 04:33 Creatinine 0.4 mg/dL (0.5-0.9) L 01/22/23 04:33 GFR Calculation 168.3 mL/min (90-130) H 01/22/23 04:33 Glucose 95 mg/dL (65-115) 01/22/23 04:33 POC Glucose 101 mg/dL (70-110) 01/21/23 10:47 Calculated Osmolality 285 mOsm/kg (285-295) 01/22/23 04:33 Calcium 8.6 mg/dL (8.5-10.5) 01/22/23 04:33 Phosphorus 3.5 mg/dL (2.5-4.5) 01/22/23 04:33 Magnesium 1.6 mg/dL (1.7-2.3) L 01/22/23 04:33 Total Bilirubin 0.3 mg/dL (0.15-1.2) 01/22/23 04:33 AST 9 U/L (0-32) 01/22/23 04:33 ALT < 5 U/L (0-33) 01/22/23 04:33 Alkaline Phosphatase 76 U/L (35-105) 01/22/23 04:33 Troponin T Gen 5 ng/L 6 ng/L (0-10) 01/19/23 04:32 Troponin T Baseline 6 ng/L (0-10) 01/17/23 20:30 Troponin T 120 Minute 8.18 ng/L (0-10) 01/17/23 23:10 Delta Troponin T 2.18 ABS# (0-10) 01/17/23 23:10 Troponin T Hi Sens 6Hr 24.63 ng/L (0-10) H 01/18/23 02:51 Troponin T Hi Sens 6Hr Delta 18.63 ng/L (0-12) H* 01/18/23 02:51 NT-Pro-B Natriuret Pep 138 pg/mL (0-125) H 01/17/23 20:30 Total Protein 4.8 g/dL (6.6-8.7) L 01/22/23 04:33 Albumin 2.6 g/dL (3.5-5.2) L 01/22/23 04:33 Globulin 2.2 g/dL (1.3-4.6) 01/22/23 04:33 Procalcitonin 0.10 ng/mL (0-0.5) 01/17/23 23:10 Urine Color Yellow (Yellow) 01/21/23 14:25 Urine Appearance Clear (CLEAR) 01/21/23 14:25 Urine pH 7 (5-7) 01/21/23 14:25 Ur Specific [place] 1.005 (1.005-1.030) 01/21/23 14:25 Urine Protein Neg (Negative) 01/21/23 14:25 Urine Glucose (UA) Norm (Normal) 01/21/23 14:25 Urine Ketones Negative (Negative) 01/21/23 14:25 Urine Blood Neg (Negative) 01/21/23 14:25 Urine Nitrate Negative (Negative) 01/21/23 14:25 Urine Bilirubin Neg (Negative) 01/21/23 14:25 Urine Urobilinogen Neg mg/dL (Negative) 01/21/23 14:25 Ur Leukocyte Esterase Negative (Negative) 01/21/23 14:25 Vitals Last Vital Signs Temp 97.9 F 01/22/23 12:00 Pulse 99 01/22/23 12:00 Resp 16 01/22/23 12:00 BP 109/69 01/22/23 12:00 Pulse Ox 97 01/22/23 12:00 O2 Del Method Room Air 01/22/23 08:00 Discharge Plan Discharge Condition: Stable Prescriptions: New atorvastatin 40 mg Tablet 40 mg PO BEDTIME Qty: 30 0RF azithromycin 500 mg tablet 500 mg PO DAILY 5 Days Qty: 5 0RF levofloxacin 750 mg tablet 750 mg PO DAILY 5 Days Qty: 5 0RF Continued montelukast [Singulair] 10 mg tablet 10 mg PO DAILY Qty: 30 2RF morphine 60 mg tablet extended release 60 mg PO Q12H 30 Days Qty: 60 0RF morphine 15 mg tablet 15 mg PO .COMPLEX PRN (Reason: pain) 7 Days Qty: 30 0RF Rx Instructions: 15 mg orally Q4-6H PRN; fentanyl 50 mcg/hr patch 72 hour 1 patch transdermal Q72H 15 Days Qty: 5 0RF promethazine 25 mg tablet 25 mg PO Q6H PRN (Reason: nausea and vomiting) Qty: 20 0RF oxycodone 5 mg tablet 5 mg PO Q6H Eliquis 5 mg tablet 5 mg PO BID@0900,2100 lorazepam 1 mg tablet 0.5 - 1 mg PO Q6H PRN (Reason: Severe Nausea) Qty: 30 3RF naloxone 4 mg/actuation [place],Non-Aerosol 4 mg INTRANASAL Q2M PRN (Reason: Opiate Reversal) Rx Instructions: spray 1 dose into ONE nostril; alternate nostrils w each dose until help arrives prochlorperazine maleate [Compazine] 10 mg tablet 10 mg PO Q4H PRN (Reason: Mild Nausea) Qty: 30 3RF Referrals: Clarice Perez MD [Primary Care Provider] - Datar,Roni Branham MD [Physician] - 7-10 days (Bronchoscopy. postobstructive PNA) Stefani Gonzalez MD [Physician] - 1 month (stress test per inpatient cardiology to be done in out patient setting) Discharge Diet: Cardiac Discharge Activity: Increase activity as tolerated Patient Instructions: Opioid Safety Discharge Attestations Time Spent in Discharge Care*: less than 30 min Quality Metrics Clinical Quality Measures [ No reported AMI, CVA or VTE this stay] Coding Level of Care Code 22300 Diagnoses Pulmonary embolism I26.99 Colon cancer metastasized to liver C18.9; C78.7 Dehydration E86.0 Nausea & vomiting R11.2 Hypokalemia E87.6 Cancer related pain G89.3 NSTEMI (non-ST elevated myocardial infarction) I21.4 Postobstructive pneumonia J18.9 Bacteremia due to Proteus species R78.81; B96.4 Hypomagnesemia E83.42
== END 2023-01-22 14:40 | disposition home or self-care (01) | DRG 175 ==
LOC: ER 22:41 → MEDSURG 01-18 01:46
PROVIDERS: Emergency Medicine; Family Medicine; Admitting Provider Internal Medicine; Emergency Provider Family Medicine; PCP Family Medicine; Visit Provider Family Medicine
DX: I26.99 Other pulmonary embolism without acute cor pulmonale (principal); I21.4 Non-ST elevation (NSTEMI) myocardial infarction; J18.9 Pneumonia, unspecified organism; C18.9 Malignant neoplasm of colon, unspecified; C78.7 Secondary malignant neoplasm of liver and intrahepatic bile duct; D84.821 Immunodeficiency due to drugs; Z93.3 Colostomy status; Z87.01 Personal history of pneumonia (recurrent); Z86.711 Personal history of pulmonary embolism; Z79.899 Other long term (current) drug therapy; J47.9 Bronchiectasis, uncomplicated; J40 Bronchitis, not specified as acute or chronic; Z79.891 Long term (current) use of opiate analgesic; Z79.01 Long term (current) use of anticoagulants; Z87.891 Personal history of nicotine dependence; Z95.828 Presence of other vascular implants and grafts; E86.0 Dehydration; E87.6 Hypokalemia; G89.3 Neoplasm related pain (acute) (chronic); Z79.60 Long term (current) use of unspecified immunomodulators and immunosuppressants
CPT/HCPCS: 36415; 36416; 36592; 71045; 71275; 74177; 80048; 80053; 81003; 82962; 83735; 83880; 84100; 84145; 84484; 85025; 85610; 87040; 93005; 93306; 93971; 94640; 96365; 96375; 99285; C9113; G0378; J0456; J0692; J0696; J2270; J2405; J2997; J3475; J3480; J7030; J7050; Q9967

== ENCOUNTER 2023-01-27 10:08 | Day surgery (SDC) | payer MEDICAID, SELFPAY ==
[2023-01-24 10:59] VITALS: BMI 22.4
[2023-01-27] VITALS (11 sets, daily range): BP systolic 109–143; BP diastolic 73–109; PULSE 97–114; RESP 16–18; TEMP 36.3–36.9; O2SAT 95–99
[2023-01-27] MEDS: sodium chloride 0.9% 1,000 ML 30 ML IV (10:43)
--- NOTE | 2023-01-27 10:47 | SC_ITS ---
WS: [id number] C-arm FL for CVA [id number] REASON FOR EXAM: Mediport FINDINGS: Left chest chemotherapy port placement with transvenous left subclavian vein infusion catheter with t he tip in the superior vena cava just above the right atrium. No pneumothorax is identified. SC/C-arm FL for CVA [id number] IMPRESSION: Chemotherapy port and infusion catheter placement as above.
--- NOTE | 2023-01-27 10:47 | XR_ITS ---
WS: [id number] XR chest 1V portable [id number] REASON FOR EXAM: postop mediport FINDINGS: Chemotherapy infusion port in place over the left anterolateral chest with transvenous left subclavia n vein infusion catheter with the tip in the superior vena cava just above the right atrium. No pneumothorax is identified. No other acute abnormality in the chest. Pre-existing right arm PICC line with the tip in the superior vena cava just above the right atrium. XR/XR chest 1V portable [id number] IMPRESSION: Chemotherapy infusion port and catheter and right arm PICC line position as abo ve. No acute abnormality in the chest.
--- NOTE | 2023-01-27 10:50 | W.PM.OPSUD ---
Surgery/Procedure H&P Update DATE OF PROCEDURE: January 27, 2023 DATE H&P PERFORMED: 01/11/23 H&P UPDATE INFORMATION: I have reviewed H&P completed within last 30 days, I have examined patient prior to procedure and No changes to prior documentation PLANNED PROCEDURE: Operation Date: 01/27/23 12:00 Proposed Procedures p [id number] port placment , C18.9 C78.7(Not Applicable) - Mo Coffman, DO
--- NOTE | 2023-01-27 12:23 | P.ANESASSM_ITS ---
Pre-Anesthetic Assessment Height/Weight: Height 1.63 m Weight 59.421 kg Temp Pulse Resp BP Pulse Ox O2 Del Method 98.4 F 104 H 16 113/76 95 Room Air 01/27/23 10:28 01/27/23 10:28 01/27/23 10:28 01/27/23 10:28 01/27/23 10:28 01/27/23 10:28 Operation Date: 01/27/23 12:00 Proposed Procedures p [id number] port placment , C18.9 C78.7(Not Applicable) - Mo Coffman DO Familial anesthetic complications: none Was Beta Carlo taken within 24 hours: N/A Was Clonidine taken within 24 hours: N/A Last intake: Intake Last Liquid Date 01/26/23 Last Liquid Time 18:00 Last Solid Date 01/26/23 Last Solid Time 18:00 Social No alcohol and No tobacco (h/o smoking) Exam alert, oriented x 3 and regular rate & rhythm Airway Submandibular: within normal limits Cervical ROM: within normal limits Mallampati: Class II Dentition: chipped Pulmonary Chronic Obstructive Pulmonary Disease PE GI Metastatic colon CA Musc/skel Chronic pain/opioid Anesthetic Plan ASA status: 3 Anesthesia: MAC Medications/Allergies Home Medications Medication Instructions Recorded Confirmed Last Taken Type naloxone 4 mg/actuation nasal spray 4 mg intranasal Q2M PRN Opiate 09/25/22 01/24/23 Unknown History Reversal promethazine 25 mg tablet 25 mg PO Q6H PRN nausea and 11/13/22 01/24/23 Unknown Rx vomiting #20 tabs montelukast 10 mg tablet 10 mg PO DAILY #30 tabs 12/27/22 01/24/23 01/27/23 07:0 0 Rx (Singulair) fentanyl 50 mcg/hr transdermal 1 patch transdermal Q72H 15 days 01/11/23 01/24/23 01/27/23 Rx patch #5 ea apixaban 5 mg tablet (Eliquis) 5 mg PO BID@0900,2100 01/18/23 01/24/23 01/24/23 History atorvastatin 40 mg tablet 40 mg PO BEDTIME #30 tabs 01/22/23 01/24/23 01/24/23 Rx lorazepam 1 mg tablet 0.5 - 1 mg PO Q6H PRN Severe 01/22/23 01/24/23 01/24/23 Rx Nausea #30 tabs morphine 15 mg immediate release 15 mg PO .COMPLEX PRN pain 1 week 01/25/23 01/27/23 01/27/23 06:00 Rx tablet #30 tabs morphine 60 mg tablet,extended 60 mg PO Q12H 30 days #60 tabs 01/25/23 01/27/23 01/27/23 07:00 Rx release Allergies Allergy/AdvReac Type Severity Reaction Status Date / Time tramadol [From Ultra] Allergy ALGY-Anaphy Verified 01/17/23 18:41 laxis Current Medications Generic Name Dose Route Start Last Admin Trade Name Freq PRN Reason Stop Dose Admin Sodium Chloride 1,000 mls @ 30 mls/hr 01/27/23 10:15 01/27/23 10:43 Sodium Chloride 0.9% IV 01/28/23 10:14 30 mls/hr .Q24H FABIOLA Administration PFSH Anesthesia Medical History Colon cancer Colon cancer metastasized to liver Diverticulitis Pneumonia Pulmonary embolism Shortness of breath Surgical History History of colon surgery 09/2022 ostomy placed. Family History Other CAD (coronary artery disease) Cancer Hyperlipidemia Hypertension Lung disease Psychiatric illness Stroke Denies family history of Diabetes Clotting disorder Dementia Chronic kidney disease (CKD) Suicide Anesthesia complication Bleeding disorder Social History Smoking and tobacco status: former smoker Quit status (tobacco): has quit using tobacco Former quit date comment: smoked x 10 years Alcohol intake: never Data Anesthesia Cardiac Studies: Echocardiogram 01/18/23
[2023-01-27] MEDS: ceFAZolin 2,000 MG in sodium chloride 0.9% (plus) 50 ML 100 MG IV (12:24)
[2023-01-27] MEDS: lidocaine-epi 2% 20 mL INJ 10 ML INJECTION (12:49)
[2023-01-27] MEDS: heparin, porcine 1,000 unit/mL INJ 10 mL 10000 UNIT INTRACATH (12:50)
[2023-01-27] MEDS: fentaNYL 50 mcg/mL INJ 2mL IVP (13:15)
[2023-01-27] MEDS: HYDROmorphone 1 mg/mL INJ 1 mL 0.5 MG IVP (13:25)
--- NOTE | 2023-01-27 15:27 | P.OP_ITS ---
Operative Report Date of procedure: January 27, 2023 Pre-op diagnosis: Colon cancer Post-op diagnosis: same Procedure done: Mediport placement Implants: PowerPort Specimens removed/disposition: None Surgeon: Dr. Mo Coffman, DO Anesthesia: MAC Estimated blood loss (mL): 5 Complications: None apparent Brief History: This very pleasant 53-year-old female with colon cancer. Mediport placement was requested by oncology for chemotherapy infusion. The risk and benefits were explained and documented. Procedure: They put another order I will do right now things the patient was taken to the operating room and placed supine on the operating room table. All bony pro minences were padded. She was given IV sedation and monitored throughout the case by the anesthesia personnel. SCDs were placed and turned on. The arms were tucked to the side. Patient received Ancef 2 g preoperatively IV. The bilateral chest wall was prepped and draped in usual sterile fashion using chlorhexidine base prep. Sterile drapes were applied. We did procedure pause prior to beginning. An 18 gauge needle was placed in the left subclavian vein. Dark, nonpulsatile blood was aspirated. A guidewire was placed through the needle centrally toward the atrial/vena caval junction. Fluoroscopy visualized good placement. The needle was removed and the guidewire was clipped to the drape with a hemostat. Further local anesthetic was infiltrated in the soft tissues of the left chest wall and a #15 blade was used to make a horizontal skin incision. A subcutaneous Mediport pocket was created using Bovie cautery, dissecting down through the skin and subcutaneous tissues. Meticulous hemostasis was achieved. The Mediport was sutured in position using 3-0 vicryl suture x2 stitches. A #15 blade was used to make a small skin vito around the guidewire insertion area. The Mediport tubing was tunneled through the subcutaneous tissues up to the needle insertion location. A dilator with a peel-away sheath was placed over the guidewire and placed centrally. After measuring the Mediport tubing was cut to length so that the tip would end at the atrial/vena caval junction. The inner cannula and the guidewire were removed, leaving the dilator sheath in place. The Mediport was flushed. The tip of the catheter was inserted through the peel-away sheath and the peel-away sheath removed in the standard fashion. The Mediport was accessed with a straight Downing needle and dark, nonpulsatile blood was aspirated and flushed using heparinized saline to hep-lock the Mediport. Final fluoroscopy visualization showed no kink in the catheter and the tip of the Mediport tubing near the atrial/vena caval junction. Both skin incisions were thoroughly irrigated and suctioned dry. Meticulous hemostasis noted. The dermis was approximated with 3-0 Vicryl in an interrupted fashion. Skin was closed with Dermabond. Patient was awakened from anesthesia and transferred via her cart to the recovery room in stable condition. All needle, sponge, and instrument counts were correct per the operating personnel x2 counts.
--- NOTE | 2023-01-27 15:40 | ANE.PACU2 ---
Inpatient post-anesthesia follow up: Airway intact: Yes Vital signs: Temperature 97.3 F Pulse Rate 97 Respiratory Rate 16 Blood Pressure 124/84 Pulse Oximetry 97 Oxygen Delivery Me thod Room Air Oxygen Flow Rate Fraction of Inspir ed Oxygen Hydration adequate: Yes Nausea and vomiting: No Pain level: 5 Mental status: Baseline
== END 2023-01-27 14:26 | disposition home or self-care (01) ==
PROVIDERS: PCP Family Medicine; Visit Provider Surgery
PROC: (CPT 36561; principal; 2023-01-27 12:00)
DX: C18.9 Malignant neoplasm of colon, unspecified (principal); C78.7 Secondary malignant neoplasm of liver and intrahepatic bile duct; J44.9 Chronic obstructive pulmonary disease, unspecified; Z79.01 Long term (current) use of anticoagulants; Z79.891 Long term (current) use of opiate analgesic; Z86.718 Personal history of other venous thrombosis and embolism; Z87.891 Personal history of nicotine dependence; Z93.3 Colostomy status
CPT/HCPCS: 36561; 71045; 76000; 77001; C1788; J0690; J1170; J1644; J2704; J3010; J7030

== ENCOUNTER 2023-02-08 12:00 | Oncology outpatient (recurring) (ONCR) | payer MEDICAID, SELFPAY ==
[2023-01-31 08:28] VITALS: BP 114/81; PULSE 116; RESP 18; TEMP 37.1; O2SAT 95
[2023-01-31 08:45] LABS: Basophils # 0.1 10^3/uL (0.0-0.1); Basophils % 0.5 %; Eosinophils # 0.6 10^3/uL (0.0-0.8); Eosinophils % 6.2 %; Hematocrit 34.9 % (37.0-47.0); Hemoglobin 10.8 g/dL (11.5-15.3); Lymphocytes # 2.9 10^3/uL (0.8-4.8); Lymphocytes % 29.9 %; Mean Corpuscular HGB Conc 30.9 g/dL (30.0-36.0); Mean Corpuscular Hemoglobin 27.3 pg (28.0-34.0); Mean Corpuscular Volume 88.1 fl (81-99); Mean Platelet Volume 9.2 fL (7.4-10.4); Monocytes # 0.7 10^3/uL (0.2-0.9); Monocytes % 7.3 %; Neutrophils # 5.43 10^3/uL (1.8-7.7); Neutrophils % 55.7 %; Nucleated Red Blood Cells % 0 %; Platelet Count 342 10^3/cmm (130-400); Red Blood Count 3.96 10^6/uL (4.1-5.3); Red Cell Distribution Width 16.2 % (12.1-15.1); White Blood Count 9.8 10^3/uL (4.0-10.0)
[2023-01-31 09:00] LABS: Alanine Aminotransferase 7 U/L (0-33); Albumin Level 3.6 g/dL (3.5-5.2); Alkaline Phosphatase 100 U/L (35-105); Anion Gap 14.7 (5-19); Aspartate Amino Transferase 17 U/L (0-32); Blood Urea Nitrogen 4 mg/dL (6-20); Calcium 9.6 mg/dL (8.5-10.5); Carbon Dioxide 27 mmol/L (22-29); Chloride 100 mmol/L (98-107); Globulin 3.2 g/dL (1.3-4.6); Glomerular Filtration Rate 168.3 mL/min (90-130); Glucose 102 mg/dL (65-115); Osmolality Calculated 283 mOsm/kg (285-295); Potassium 3.7 mmol/L (3.5-5.1); Sodium 138 mmol/L (136-145); Total Bilirubin 0.4 mg/dL (0.15-1.2); Total Protein 6.8 g/dL (6.6-8.7)
[2023-02-02 10:00] VITALS: BMI 20.6
[2023-02-02] MEDS: dextrose 5% 250 ML 75 ML IV (10:19)
[2023-02-02] MEDS: palonosetron 0.25 mg/5 mL SDV IVP (10:22)
[2023-02-02] MEDS: oxaliplatin 100 MG, oxaliplatin 34 MG in dextrose 5% 250 ML 69.2 MG IV (11:30)
[2023-02-02] MEDS: fluorouraciL 3,750 MG, elastomeric pump 1 PUMP in sodium chloride 0.9% (100 ml) 17 ML IV (15:01)
[2023-02-02 15:03] VITALS: BP 124/81; PULSE 109; RESP 20; TEMP 36.1; O2SAT 97
--- NOTE | 2023-02-02 16:07 | XR_ITS ---
WS: [id number] EXAMINATION: XR chest 2V* [id number] REASON FOR EXAM: Decreased lung sounds COMPARISON: 01/27/2023 ORDER DATE: 02/02/2023 4:09 PM PROCEDURE INFORMATION: Lungs: Mild chronic bronchiectasis lower left lung. Small amount of left basilar atelectasis/scarring. No focal infiltrate or consolidation. Pleural spaces: Unremarkable. No pleural effusion. No pneumothorax. Heart/Mediastinum: Unremarkable. No cardiomegaly. Bones/joints: Slight rotation. The rotoscoliosis and kyphosis with osteoporosis. Mild spondylotic quita nge thoracic spine. Other findings: Left-sided Port-A-Cath unchanged. Right-sided PICC line has been removed.. XR/XR chest 2V* [id number] IMPRESSION: 1. Mild chronic left basilar lung changes. 2. Port-A-Cath unchanged. 3. No acute findings, otherwise.
[2023-02-04 11:45] VITALS: BP 122/87; PULSE 111; RESP 16; TEMP 36.9; O2SAT 98
[2023-02-08 11:58] VITALS: BP 118/82; PULSE 112; RESP 18; TEMP 36.7; O2SAT 98
[2023-02-08 12:10] LABS: Basophils % 0.3 %; Eosinophils # 1.1 10^3/uL (0.0-0.8); Eosinophils % 12.6 %; Hematocrit 33.8 % (37.0-47.0); Hemoglobin 11.1 g/dL (11.5-15.3); Lymphocytes # 2.5 10^3/uL (0.8-4.8); Mean Corpuscular HGB Conc 32.8 g/dL (30.0-36.0); Mean Corpuscular Hemoglobin 28.5 pg (28.0-34.0); Mean Corpuscular Volume 86.9 fl (81-99); Mean Platelet Volume 9.3 fL (7.4-10.4); Monocytes # 0.4 10^3/uL (0.2-0.9); Monocytes % 4.3 %; Neutrophils # 4.69 10^3/uL (1.8-7.7); Neutrophils % 53.6 %; Nucleated Red Blood Cells % 0 %; Platelet Count 293 10^3/cmm (130-400); Red Blood Count 3.89 10^6/uL (4.1-5.3); Red Cell Distribution Width 14.9 % (12.1-15.1); White Blood Count 8.8 10^3/uL (4.0-10.0)
[2023-02-08 12:26] LABS: Alanine Aminotransferase 6 U/L (0-33); Albumin Level 3.7 g/dL (3.5-5.2); Alkaline Phosphatase 126 U/L (35-105); Anion Gap 15.5 (5-19); Aspartate Amino Transferase 13 U/L (0-32); Blood Urea Nitrogen 5 mg/dL (6-20); Calcium 9.5 mg/dL (8.5-10.5); Carbon Dioxide 28 mmol/L (22-29); Chloride 96 mmol/L (98-107); Globulin 2.9 g/dL (1.3-4.6); Glomerular Filtration Rate 234.5 mL/min (90-130); Glucose 117 mg/dL (65-115); Osmolality Calculated 280 mOsm/kg (285-295); Potassium 3.5 mmol/L (3.5-5.1); Sodium 136 mmol/L (136-145); Total Bilirubin 0.4 mg/dL (0.15-1.2); Total Protein 6.6 g/dL (6.6-8.7)
== END 2023-02-11 23:59 | disposition home or self-care (01) ==
PROVIDERS: PCP Family Medicine; Visit Provider Internal Medicine Hematology & Oncology
DX: C18.9 Malignant neoplasm of colon, unspecified (principal); C78.7 Secondary malignant neoplasm of liver and intrahepatic bile duct
CPT/HCPCS: 36591; 71046; 80053; 85025; 96367; 96368; 96375; 96413; 96415; 96416; 96523; J0640; J1100; J1642; J2469; J7060; J9190; J9263

== ENCOUNTER 2023-02-12 20:28 | Emergency (ER) | payer MEDICAID, SELFPAY ==
[2023-02-12 20:32] VITALS: BP 115/83; PULSE 103; RESP 18; TEMP 36.5; O2SAT 97; BMI 20.2
--- NOTE | 2023-02-12 20:37 | ECG_ITS ---
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 Measurements Intervals [place] Rate: 98 P: 59 NV: 139 QRS: 61 QRSD: 73 T: 18 QT: 350 QTc: 447 Interpretive Statements SINUS RHYTHM NONSPECIFIC T-WAVE ABNORMALITY Compared to ECG 01/18/2023 01:27:24 T-wave abnormality now present Electronically Signed On 02-13-2023 14:46:53 CDT by Stefani Gonzalez M.D. [email or web address]
--- NOTE | 2023-02-12 20:57 | XRR_ITS ---
PROCEDURE INFORMATION: Exam: XR Chest Exam date and time: 02/12/2023 9:21 PM Age: 53 years old Clinical indication: Pain; Chest pressure; Additional info: Chest pain TECHNIQUE: Imaging protocol: Radiologic exam of the chest. Views: 1 view. COMPARISON: CR XR chest 2V* [id number] 02/02/2023 4:09 PM FINDINGS: Tubes, catheters and devices: Left subclavian Port-A-Cath with the tip in the cavoatrial junction. Lungs: No focal consolidation. No pulmonary edema. Stable bronchial mucous plugging in the left lower lobe. Pleural spaces: No pleural effusion. No pneumothorax. Heart/Mediastinum: Stable mild enlargement of the cardiac silhouette. Mediastinal contours are unremarkable. Bones/joints: Unremarkable for age. XR/XR chest 1V portable [id number] IMPRESSION: 1. Stable bronchial mucous plugging in the left lower lobe. 2. Incidental/nonacute findings are listed in the report.
[2023-02-12 21:39] LABS: Basophils % 0.4 %; Eosinophils # 0.5 10^3/uL (0.0-0.8); Eosinophils % 5.9 %; Hematocrit 34.1 % (37.0-47.0); Hemoglobin 10.7 g/dL (11.5-15.3); Lymphocytes # 2.9 10^3/uL (0.8-4.8); Lymphocytes % 36.4 %; Mean Corpuscular HGB Conc 31.4 g/dL (30.0-36.0); Mean Corpuscular Hemoglobin 27.4 pg (28.0-34.0); Mean Corpuscular Volume 87.2 fl (81-99); Mean Platelet Volume 9.6 fL (7.4-10.4); Monocytes # 0.6 10^3/uL (0.2-0.9); Monocytes % 8.1 %; Neutrophils # 3.88 10^3/uL (1.8-7.7); Neutrophils % 48.9 %; Nucleated Red Blood Cells % 0 %; Platelet Count 251 10^3/cmm (130-400); Red Blood Count 3.91 10^6/uL (4.1-5.3); Red Cell Distribution Width 15.2 % (12.1-15.1); White Blood Count 7.9 10^3/uL (4.0-10.0)
[2023-02-12 21:50] LABS: INR 1.43 (0.8-1.2)
[2023-02-12 22:00] LABS: Troponin(5th) Baseline 6 ng/L (0-10)
[2023-02-12 22:46] LABS: Alanine Aminotransferase < 5 U/L (0-33); Albumin Level 3.9 g/dL (3.5-5.2); Alkaline Phosphatase 109 U/L (35-105); Anion Gap 13.9 (5-19); Aspartate Amino Transferase 14 U/L (0-32); Blood Urea Nitrogen 4 mg/dL (6-20); Calcium 9.1 mg/dL (8.5-10.5); Carbon Dioxide 27 mmol/L (22-29); Chloride 94 mmol/L (98-107); Globulin 2.7 g/dL (1.3-4.6); Glomerular Filtration Rate 168.3 mL/min (90-130); Glucose 90 mg/dL (65-115); NT Pro B Type Natriuretic Pept 59 pg/mL (0-125); Osmolality Calculated 270 mOsm/kg (285-295); Sodium 132 mmol/L (136-145); Total Bilirubin 0.3 mg/dL (0.15-1.2); Total Protein 6.6 g/dL (6.6-8.7)
[2023-02-12 22:47] LABS: Potassium 2.9 mmol/L (3.5-5.1)
[2023-02-12 23:12] VITALS: BP 114/77; PULSE 89; RESP 18; O2SAT 97
[2023-02-13] MEDS: dexamethasone 4 mg Tablet 10 MG PO (00:23)
[2023-02-13] MEDS: ondansetron 4 MG Tablet PO (00:23)
[2023-02-13] MEDS: ketorolac 10 mg Tablet PO (00:23)
--- NOTE | 2023-02-13 00:25 | W.ED.CHESTPA ---
HPI - Chest Pain General: Chief Complaint: Chest Pain Stated Complaint: Chest Pains Time Seen by Provider: 02/12/23 21:09 History of Present Illness: 53-year-old female states that she has been having left sided and central chest pain on and off for a week. She says it feels like a burning sensation, and hurts when she breathes or coughs. No fever. She has some white sputum production with her cough. No vomiting. She has been nauseated at times. She received a first chemo induction last week. MD complaint: chest pain Pertinent past history: other Onset (ago): day(s) Prior episodes: Yes Onset: during rest and during exertion Pain location: substernal and left chest Pain radiation: none Severity: moderate Quality: sharp and burning Relieving factors: nothing Exacerbating factors: inspiration and other (Cough) Associated symptoms: Reports dyspnea and nausea; Deny abdominal pain, fever(s), leg edema, syncope or vomiting Review of Systems Const: Denies: fever(s) ENMT: Denies: throat pain Card: Reports: chest pain; Denies: syncope Resp: Reports: dyspnea GI: Reports: nausea; Denies: abdominal pain or vomiting [facility] ED PFSH: Medical History Colon cancer Colon cancer metastasized to liver Diverticulitis Pneumonia Pulmonary embolism Shortness of breath Surgical History History of colon surgery 09/2022 ostomy placed. Family History Other CAD (coronary artery disease) Cancer Hyperlipidemia Hypertension Lung disease Psychiatric illness Stroke Denies family history of Diabetes Clotting disorder Dementia Chronic kidney disease (CKD) Suicide Anesthesia complication Bleeding disorder Social History Smoking and tobacco status: former smoker Quit status (tobacco): has quit using tobacco Former quit date comment: smoked x 10 years Alcohol intake: never Physical Exam Const: COMMON NORMALS: no acute distress GENERAL APPEARANCE: cooperative and frail appearing; not ill appearing HENMT: COMMON NORMALS: normocephalic, atraumatic and Normal external nose present HEAD & SCALP: normocephalic and atraumatic FACE & SINUS: normal facial exam and face symmetric NOSE: Normal external nose present Eye: COMMON NORMALS: Equal, round and reactive pupils present and EOMs intact bilaterally PUPIL: Yes Equal, round and reactive pupils present Neck/C-Spine: GENERAL: Yes trachea midline Chest: CHEST: Yes Symmetrical chest wall rise Resp: COMMON NORMALS: normal respiratory effort, No retractions, No use of accessory muscles and clear to auscultation bilaterally AUSCULTATION: clear to auscultation bilaterally Cardio: COMMON NORMALS: regular rate and regular rhythm RATE: regular rate RHYTHM: regular rhythm GI: COMMON NORMALS: Normal to inspection, nondistended, normoactive bowel sounds present Extremity: COMMON NORMALS: no pedal edema Neuro: EARL COMA SCALE: document GCS findings Buhler coma scale eye opening: Spontaneous Earl coma scale verbal response: Orientated B[place]ler coma scale motor response: Obey commands Earl coma scale total score: 15 SENSORY EXAM: Yes extremities (intact) Psych: COMMON NORMALS: speech normal SPEECH: Yes normal speech Skin: COMMON NORMALS: no rashes or lesions noted GENERAL SKIN EXAM: no rashes or lesions noted Course Vital Signs: Vital signs: Vital Signs Temperature 97.7 F 02/12/23 20:32 Pulse Rate 103 H 02/12/23 20:32 Respiratory Rate 18 02/12/23 20:32 Blood Pressure 115/83 02/12/23 20:32 Pulse Oximetry 97 02/12/23 20:32 Oxygen Delivery Me thod Room Air 02/12/23 20:32 MDM - Chest Pain Medical Decision Making Patient is a pleuritic type pain, worsened with inspiration and cough. She is nontachycardic. Room air saturations are 95 to 100%. She is on Eliquis. Hemoglobin is 11. White blood cell count is 7.9. Sodium 132, potassium is low at 2.9. Chest x-ray shows some bronchial mucus plugging in the left lower lobe. This is stable from prior. EKG shows a sinus rhythm with a normal axis, normal intervals, rate of 100, and no ST elevation or depression. Troponin remain normal at 2 hours. There was some trouble getting the patient's IV, and she did not want us to use her port. Potassium was replaced orally with oral liquid. She received oral dexamethasone, oral pain medication including Dilaudid and Toradol, and a breathing treatment was prescribed which she refused. She will be allowed discharge. Return for worsening symptoms. Lab Data 02/12/23 21:30 02/12/23 21:30 Radiology Impressions Chest X-Ray 02/12/23 20:57 IMPRESSION: 1. Stable bronchial mucous plugging in the left lower lobe. 2. Incidental/nonacute findings are listed in the report. Laboratory Results WBC 7.9 10^3/uL (4.0-10.0) 02/12/23 21: RBC 3.91 10^6/uL (4.1-5.3) L 02/12/23 21: Hgb 10.7 g/dL (11.5-15.3) L 02/12/23 21: Hct 34.1 % (37.0-47.0) L 02/12/23: MCV 87.2 fl (81-99) 02/12/23 21: MCH 27.4 pg (28.0-34.0) L 02/12/23: MCHC 31.4 g/dL (30.0-36.0) 02/12/23 21: RDW 15.2 % (12.1-15.1) H 02/12/23 21: Plt Count 251 10^3/cmm (130-400) 02/12/23 21: MPV 9.6 fL (7.4-10.4) 02/12/23 21: Neut % (Auto) 48.9 % 02/12/23 21: Lymph % (Auto) 36.4 % 02/12/23 21: [place] % (Auto) 8.1 % 02/12/23: Eos % (Auto) 5.9 % 02/12/23 21: Baso % (Auto) 0.4 % 02/12/23 21: Neut # (Auto) 3.88 10^3/uL (1.8-7.7) 02/12/23: Lymph # (Auto) 2.9 10^3/uL (0.8-4.8) 02/12/23 21: [place] # (Auto) 0.6 10^3/uL (0.2-0.9) 02/12/23 21: Eos # (Auto) 0.5 10^3/uL (0.0-0.8) 02/12/23 21:30 Baso # (Auto) 0.0 10^3/uL (0.0-0.1) 02/12/23 21:30 Nucleated RBC % (auto) 0 % 02/12/23 21: Nucleated RBCs # 0.0 /100WBC 02/12/23 21:30 PT 17.90 SECONDS (12.1-14.9) H 02/12/23 21:30 INR 1.43 (0.8-1.2) H 02/12/23 21:30 Sodium 132 mmol/L (136-145) L 02/12/23 21:30 Potassium 2.9 mmol/L (3.5-5.1) L 02/12/23 21: Chloride 94 mmol/L (98-107) L 02/12/23 21: Carbon Dioxide 27 mmol/L (22-29) 02/12/23 21: Anion Gap 13.9 (5-19) 02/12/23 21:30 BUN 4 mg/dL (6-20) L 02/12/23 21:30 Creatinine 0.4 mg/dL (0.5-0.9) L 02/12/23 21:30 GFR Calculation 168.3 mL/min (90-130) H 02/12/23 21: Glucose 90 mg/dL (65-115) 02/12/23 21: Calculated Osmolality 270 mOsm/kg (285-295) L 02/12/23 21: Calcium 9.1 mg/dL (8.5-10.5) 02/12/23 21:30 Total Bilirubin 0.3 mg/dL (0.15-1.2) 02/12/23 21:30 AST 14 U/L (0-32) 02/12/23 21:30 ALT < 5 U/L (0-33) 02/12/23 21:30 Alkaline Phosphatase 109 U/L (35-105) H 02/12/23 21:30 Troponin T Baseline 6 ng/L (0-10) 02/12/23 21:30 Troponin T 120 Minute 6.00 ng/L (0-10) 02/12/23 23:38 NT-Pro-B Natriuret Pep 59 pg/mL (0-125) 02/12/23 21:30 Total Protein 6.6 g/dL (6.6-8.7) 02/12/23 21:30 Albumin 3.9 g/dL (3.5-5.2) 02/12/23 21:30 Globulin 2.7 g/dL (1.3-4.6) 02/12/23 21:30 Discharge Plan Discharge Patient Disposition: Home Clinical Impression: Atypical chest pain, Acute hypokalemia Condition: Stable Prescriptions: No Action montelukast [Singulair] 10 mg tablet 10 mg PO DAILY Qty: 30 2RF potassium chloride 20 mEq tablet extended release 20 meq PO DAILY lidocaine-prilocaine 2.5-2.5 % cream 1 applic topical ONCE Qty: 30 0RF Rx Instructions: Apply to port 30-45 minutes prior to port access morphine 60 mg tablet extended release 60 mg PO Q12H 30 Days Qty: 60 0RF morphine 15 mg tablet 15 mg PO .COMPLEX PRN (Reason: pain) 7 Days Qty: 30 0RF Rx Instructions: 15 mg orally Q4-6H PRN; lorazepam 1 mg tablet 0.5 - 1 mg PO Q6H PRN (Reason: Severe Nausea) Qty: 30 3RF fentanyl 50 mcg/hr patch 72 hour 1 patch transdermal Q72H 15 Days Qty: 5 0RF promethazine 25 mg tablet 25 mg PO Q6H PRN (Reason: nausea and vomiting) Qty: 20 0RF Eliquis 5 mg tablet 5 mg PO BID@0900,2100 Hold Instructions: Resume on 01/29/23. atorvastatin 40 mg Tablet 40 mg PO BEDTIME Qty: 30 0RF naloxone 4 mg/actuation [place],Non-Aerosol 4 mg INTRANASAL Q2M PRN (Reason: Opiate Reversal) Rx Instructions: spray 1 dose into ONE nostril; alternate nostrils w each dose until help arrives Discharge Orders: Discharge ED (Routine); Ordered 02/13/23 Ordered By: Markel Lindsay Referrals: Clarice Perez MD [Primary Care Provider] - 4-7 days Patient Instructions: Chest Wall Pain (ED), Opioid Safety, Pain Management Activity Restrictions/Additional Instructions: Return for worsening pain, worsening shortness of breath, fever greater than 100, any other concerning symptoms. Follow-up with your doctor this week as scheduled. Coding Level of Care Code ED Gis Professor for Chg Fwd
[2023-02-13] MEDS: potassium chloride oral liq 20 mEq/15 mL UDC 40 MEQ PO (00:39)
[2023-02-13 00:40] LABS: Troponin 5 2HR Delta 0 ABS# (0-10)
--- NOTE | 2023-02-13 01:00 | PC.NURSE ---
Report from KEENAN Ashley. Pt states meds given have caused abdominal pain. notified. Orders received.
[2023-02-13] MEDS: lidocaine 2% viscous 15 ML, aluminum-mag hydrox-simethicon 30 ML, sucralfate oral liq 1 GM PO (01:23)
[2023-02-13 02:00] VITALS: BP 96/68; PULSE 92; RESP 22; O2SAT 99
[2023-02-13] MEDS: LORazepam 2 mg/mL INJ 1 mL 1.5 MG IVP (02:31)
[2023-02-13 02:32] VITALS: RESP 18
[2023-02-13] MEDS: morphine 4 mg/mL SDV 1 mL IVP (02:32)
[2023-02-13 03:00] VITALS: BP 99/68; PULSE 90; O2SAT 99
[2023-02-13 03:43] VITALS: BP 110/81; PULSE 95; RESP 18; O2SAT 99
== END 2023-02-13 03:44 | disposition home or self-care (01) ==
PROVIDERS: Emergency Medicine; Emergency Provider Emergency Medicine; PCP Family Medicine
DX: R07.89 Other chest pain (principal); E87.6 Hypokalemia; Z79.01 Long term (current) use of anticoagulants; Z87.891 Personal history of nicotine dependence; Z85.038 Personal history of other malignant neoplasm of large intestine; Z85.05 Personal history of malignant neoplasm of liver; Z86.711 Personal history of pulmonary embolism
CPT/HCPCS: 36415; 71045; 80053; 83880; 84484; 85025; 85610; 93005; 96374; 96375; 99285; J1642; J2060; J2270; J8540; Q0162

== ENCOUNTER 2023-02-14 10:56 | Emergency (ER) | payer MEDICAID, SELFPAY ==
--- NOTE | 2023-02-14 11:27 | XRR_ITS ---
PROCEDURE INFORMATION: Exam: XR Chest Exam date and time: 02/14/2023 11:45 AM Age: 53 years old Clinical indication: Pain; Cough and dyspnea; Angina pectoris; Additional info: Dyspnea/cough TECHNIQUE: Imaging protocol: Radiologic exam of the chest. Views: 1 view. COMPARISON: CR (CHEST, ) 02/12/2023 9:21 PM FINDINGS: Tubes, catheters and devices: Left central line is in the right atrium Lungs: Unremarkable. No consolidation. Pleural spaces: Unremarkable. No pleural effusion. No pneumothorax. Heart/Mediastinum: Unremarkable. No cardiomegaly. Bones/joints: Unremarkable. XR/XR chest 1V portable [id number] IMPRESSION: 1. No acute findings. 2. Left central line is in the right atrium
[2023-02-14 11:31] VITALS: BP 102/70; PULSE 82; RESP 18; TEMP 36.6; O2SAT 99
[2023-02-14 11:49] LABS: Basophils % 0.1 %; Eosinophils % 0.5 %; Hemoglobin 9.9 g/dL (11.5-15.3); Lymphocytes # 3.2 10^3/uL (0.8-4.8); Mean Corpuscular HGB Conc 31.9 g/dL (30.0-36.0); Mean Corpuscular Hemoglobin 28.1 pg (28.0-34.0); Mean Corpuscular Volume 88.1 fl (81-99); Mean Platelet Volume 9.2 fL (7.4-10.4); Monocytes % 11.4 %; Neutrophils # 4.55 10^3/uL (1.8-7.7); Neutrophils % 51.8 %; Nucleated Red Blood Cells % 0 %; Platelet Count 243 10^3/cmm (130-400); Red Blood Count 3.52 10^6/uL (4.1-5.3); Red Cell Distribution Width 15.7 % (12.1-15.1); White Blood Count 8.8 10^3/uL (4.0-10.0)
--- NOTE | 2023-02-14 12:11 | PC.PHAR ---
pt and pts verified pts medications-pt and pts states the pt is not taking lexapro 10mg daily rx filled 01/13/23 30d/s pt states this medication made her sick-pt and pts states the pt has been out of her morphine ir 15mg q4-6h prn for 2 days rx filled 02/04/23 7d/s[facility] last got her leucovorin,oxaliplatin and the 5-fu pump on 02/02/23 states the pt is to get every 2 weeks-notes are made in the pharmacy comments
[2023-02-14 12:13] LABS: Alanine Aminotransferase < 5 U/L (0-33); Albumin Level 3.5 g/dL (3.5-5.2); Alkaline Phosphatase 98 U/L (35-105); Anion Gap 15.1 (5-19); Aspartate Amino Transferase 9 U/L (0-32); Blood Urea Nitrogen 9 mg/dL (6-20); Calcium 9.1 mg/dL (8.5-10.5); Carbon Dioxide 26 mmol/L (22-29); Chloride 99 mmol/L (98-107); Globulin 2.8 g/dL (1.3-4.6); Glomerular Filtration Rate 168.3 mL/min (90-130); Glucose 98 mg/dL (65-115); Osmolality Calculated 281 mOsm/kg (285-295); Potassium 4.1 mmol/L (3.5-5.1); Sodium 136 mmol/L (136-145); Total Bilirubin 0.2 mg/dL (0.15-1.2); Total Protein 6.3 g/dL (6.6-8.7)
--- NOTE | 2023-02-14 12:15 | ED_ITS ---
HPI - SOB/Dyspnea General: Chief Complaint: Shortness of Breath/Dyspnea Stated Complaint: chest pain/ostemy bag bleeding Time Seen by Provider: 02/14/23 11:23 Source: patient Mode of arrival: ambulatory History of Present Illness: HPI Narrative: 53-year-old female presents emergency room she has noticed mucousy bloody output from her ostomy. Patient has a history of colon cancer and overnight has had some mucousy bloody output from her ostomy. Patient has a history of colon cancer which was resected and she was left with a colostomy. She recently was diagnosed with a PE. She has a fairly significant tumor burden at this point. She is still undergoing treatment. She is complaining of some shortness of breath but it is not particularly worse and she is mostly concerned at this time about the blood from her colostomy. MD elicited complaint: shortness of breath and chest pain Pertinent past history: PE Onset (ago): day(s) Severity: mild Exacerbating factors: nothing Relieving factors: nothing Known history of: PE Associated symptoms: Reports abdominal pain (Chronic related to cancer, unchanged) and nausea; Deny chest congestion, chest pain, cough, diaphoresis, dizziness, extremity pain, fever(s), hemoptysis, lightheadedness, myalgias, orthopnea, palpitations, paresthesias, polydipsia, polyuria, rash, sense of impending doom, syncope or vomiting Treatment prior to arrival: none Review of Systems Const: Denies: fever(s), chills or diaphoresis Card: Denies: chest pain, palpitations, lightheadedness, syncope or orthopnea Resp: Denies: hemoptysis or chest congestion GI: Reports: abdominal pain (Chronic related to cancer, unchanged), nausea and hematochezia (from colostomy ); Denies: vomiting : Denies: flank pain, difficulty voiding, dysuria, urinary frequency or urinary urgency Musc: Denies: extremity pain Skin/Breast: Denies: rash or pruritus Neuro: Denies: dizziness Endo: Denies: polyuria or polydipsia PFSH ED PFSH: Medical History Colon cancer Colon cancer metastasized to liver Diverticulitis Pneumonia Pulmonary embolism Shortness of breath Surgical History History of colon surgery 09/2022 ostomy placed. Family History Other CAD (coronary artery disease) Cancer Hyperlipidemia Hypertension Lung disease Psychiatric illness Stroke Denies family history of Diabetes Clotting disorder Dementia Chronic kidney disease (CKD) Suicide Anesthesia complication Bleeding disorder Social History Smoking and tobacco status: former smoker Quit status (tobacco): has quit using tobacco Former quit date comment: smoked x 10 years Alcohol intake: never Physical Exam Const: GENERAL APPEARANCE: cooperative ORIENTATION/CONSCIOUSNESS: Yes awake, Yes oriented to person, Yes oriented to place and Yes oriented to time HENMT: COMMON NORMALS: normocephalic, atraumatic and hearing grossly normal bilaterally HEAD & SCALP: normocephalic and atraumatic Resp: COMMON NORMALS: normal respiratory effort, No retractions, No use of accessory muscles and clear to auscultation bilaterally AUSCULTATION: clear to auscultation bilaterally Cardio: COMMON NORMALS: regular rate, regular rhythm and No murmurs present (Cardio) RATE: regular rate RHYTHM: regular rhythm GI: COMMON NORMALS: Soft to palpation AUSCULTATION: Yes normoactive bowel sounds PALPATION: Yes Soft to palpation, No Tenderness to palpation present (GI) and No Guarding due to palpation present (GI) OTHER: Small amount of mucousy blood in the colostomy bag Extremity: COMMON NORMALS: normal to inspection, capillary refill normal, no clubbing, cyanosis or edema, no calf tenderness and no pedal edema Neuro: SENSORIUM/ORIENTATION: Yes oriented to person, Yes oriented to place an d Yes oriented to time Skin: COMMON NORMALS: no rashes or lesions noted GENERAL SKIN EXAM: no rashes or lesions noted Course Vital Signs: Vital signs: Vital Signs Temperature 97.8 F 02/14/23 11:31 Pulse Rate 82 02/14/23 11:31 Respiratory Rate 18 02/14/23 11:31 Blood Pressure 102/62 02/14/23 13:41 Pulse Oximetry 98 02/14/23 12:30 Oxygen Delivery Me thod Room Air 02/14/23 12:30 MDM - SOB/Dyspnea Medical Decision Making Hemoglobin is stable. She is not actively bleeding. Exam is unremarkable she is basically at her baseline. Because of her recent PE at this point it would not be advisable to stop her anticoagulant. We will continue her Eliquis recheck hemoglobin tomorrow which I will review in the emergency room since that would be a weekend day. If she has worsening or change return to the emergency room. Her chest pain and shortness of breath have been unchanged since the onset of her PE. I do not believe based on her symptoms or presentation that she has acute coronary syndrome. She has a significant tumor burden with metast asize adenopathy of the colon. Labs and imaging reviewed, discussed with patient. Medical Records I reviewed the patient's medical records. Lab Data I reviewed the patient's lab results. 02/14/23 11:40 02/14/23 11:40 Labs/Radiology: Radiology Impressions Chest X-Ray 02/14/23 11:27 IMPRESSION: 1. No acute findings. 2. Left central line is in the right atrium Abdomen/Pelvis CT 02/14/23 12:17 IMPRESSION: 1. Prior postoperative changes partial colectomy with diverting colostomy LEFT lower quadrant is unchanged in appearance. 2. Rectosigmoid stump with sigmoid colon stent appears stable. No evidence of bowel obstruction 3. Moderate cecal constipation RIGHT lower quadrant. 4. Multiple hepatic metastasis are similar in appearance 5. Prior cholecystectomy. 6. Bronchiectasis LEFT lower lobe unchanged in appearance. Laboratory Results WBC 8.8 10^3/uL (4.0-10.0) 02/14/23 11:40 RBC 3.52 10^6/uL (4.1-5.3) L 02/14/23 11:40 Hgb 9.9 g/dL (11.5-15.3) L 02/14/23 11:40 Hct 31.0 % (37.0-47.0) L 02/14/23 11:40 MCV 88.1 fl (81-99) 02/14/23 11:40 MCH 28.1 pg (28.0-34.0) 02/14/23 11:40 MCHC 31.9 g/dL (30.0-36.0) 02/14/23 11:40 RDW 15.7 % (12.1-15.1) H 02/14/23 11:40 Plt Count 243 10^3/cmm (130-400) 02/14/23 11:40 MPV 9.2 fL (7.4-10.4) 02/14/23 11:40 Neut % (Auto) 51.8 % 02/14/23 11:40 Lymph % (Auto) 36.0 % 02/14/23 11:40 [place] % (Auto) 11.4 % 02/14/23 11:40 Eos % (Auto) 0.5 % 02/14/23 11:40 Baso % (Auto) 0.1 % 02/14/23 11:40 Neut # (Auto) 4.55 10^3/uL (1.8-7.7) 02/14/23 11:40 Lymph # (Auto) 3.2 10^3/uL (0.8-4.8) 02/14/23 11:40 [place] # (Auto) 1.0 10^3/uL (0.2-0.9) H 02/14/23 11:40 Eos # (Auto) 0.0 10^3/uL (0.0-0.8) 02/14/23 11:40 Baso # (Auto) 0.0 10^3/uL (0.0-0.1) 02/14/23 11:40 Nucleated RBC % (auto) 0 % 02/14/23 11:40 Nucleated RBCs # 0.0 /100WBC 02/14/23 11:40 Sodium 136 mmol/L (136-145) 02/14/23 11:40 Potassium 4.1 mmol/L (3.5-5.1) 02/14/23 11:40 Chloride 99 mmol/L (98-107) 02/14/23 11:40 Carbon Dioxide 26 mmol/L (22-29) 02/14/23 11:40 Anion Gap 15.1 (5-19) 02/14/23 11:40 BUN 9 mg/dL (6-20) 02/14/23 11:40 Creatinine 0.4 mg/dL (0.5-0.9) L 02/14/23 11:40 GFR Calculation 168.3 mL/min (90-130) H 02/14/23 11:40 Glucose 98 mg/dL (65-115) 02/14/23 11:40 Calculated Osmolality 281 mOsm/kg (285-295) L 02/14/23 11:40 Calcium 9.1 mg/dL (8.5-10.5) 02/14/23 11:40 Total Bilirubin 0.2 mg/dL (0.15-1.2) 02/14/23 11:40 AST 9 U/L (0-32) 02/14/23 11:40 ALT < 5 U/L (0-33) 02/14/23 11:40 Alkaline Phosphatase 98 U/L (35-105) 02/14/23 11:40 Total Protein 6.3 g/dL (6.6-8.7) L 02/14/23 11:40 Albumin 3.5 g/dL (3.5-5.2) 02/14/23 11:40 Globulin 2.8 g/dL (1.3-4.6) 02/14/23 11:40 Discharge Plan Discharge Patient Disposition: Home Clinical Impression: Hematochezia, Colon cancer metastasized to liver, Chronic anticoagulation Condition: Stable Prescriptions: No Action azithromycin [Zithromax Z-Arash] 250 mg tablet See Rx Instructions PO .COMPLEX Qty: 6 0RF Rx Instructions: For 250 mg dose pack: take 500 mg today (day 1), then 250 mg for 4 days (days 2-5) PO morphine 60 mg tablet extended release 60 mg PO Q12H 30 Days Qty: 60 0RF lorazepam 1 mg tablet 0.5 - 1 mg PO Q6H PRN (Reason: Severe Nausea) Qty: 30 3RF promethazine 25 mg tablet 25 mg PO Q6H PRN (Reason: nausea and vomiting) Qty: 20 0RF Eliquis 5 mg tablet 5 mg PO BID@0900,2100 Hold Instructions: Resume on 01/29/23. atorvastatin 40 mg Tablet 40 mg PO BEDTIME Qty: 30 0RF ketorolac 10 mg tablet 10 mg PO Q8H PRN (Reason: pain) 3 Days Qty: 10 0RF naloxone 4 mg/actuation [place],Non-Aerosol 4 mg INTRANASAL Q2M PRN (Reason: Opiate Reversal) Rx Instructions: spray 1 dose into ONE nostril; alternate nostrils w each dose until help arrives lidocaine-prilocaine 2.5-2.5 % cream See Rx Instructions .ROUTE .COMPLEX Rx Instructions: Apply to port 30-45 minutes prior to port access Singulair 10 mg tablet 10 mg PO QAM morphine 15 mg tablet 15 mg PO .EVERY 4-6 HOURS PRN (Reason: pain) 5-Fu Pump See Rx Instructions .ROUTE .COMPLEX Rx Instructions: as directed Tylenol Ex Str Rapid Release 500 mg Tablet 1,000 mg PO Q6H PRN (Reason: Pain) Discharge Orders: Discharge ED (Routine); Ordered 02/14/23 Ordered By: Alexi Aranda Referrals: Clarice Perez MD [Primary Care Provider] - Discharge Diet: Clear Liquid Discharge Activity: Increase activity as tolerated Patient Instructions: Opioid Safety, Pain Management Activity Restrictions/Additional Instructions: Clear liquid diet for 24 to 48 hours return to the emergency room tomorrow to have a repeat hemoglobin drawn. If you have significant increase in bleeding at the ostomy site return to the emergency room. Coding Level of Care Code ED Estimator And Drafter Supervisor for Alison Groves
[2023-02-14] MEDS: morphine 4 mg/mL SDV 1 mL IVP (12:17)
[2023-02-14] MEDS: sodium chloride 0.9% 1,000 ML 999 ML IV (12:17)
[2023-02-14] MEDS: ondansetron 2 mg/ML SDV 2 mL 4 MG IVP (12:17)
--- NOTE | 2023-02-14 12:17 | CT_ITS ---
WS: [id number] CT ABDOMEN PELVIS TECHNIQUE: Contrast-enhanced CT of the abdomen and pelvis with coronal and sagittal reformatted image s. CLINICAL INFORMATION: abd pain COMPARISON: 11/26/2022 and 01/17/2023 DLP: 350.[address] scans at [facility] use at least one of these dose optimization techniques: automated e xposure control; mA and/or kV adjustment per patient size (includes targeted exams where dose is matc hed to clinical indication); or iterative reconstruction. FINDINGS: Prior postoperative changes partial colectomy with diverting colostomy LEFT lower quadrant. LEFT lowe r quadrant colostomy is unchanged in appearance. No evidence of obstruction. Rectosigmoid stump with sigmoid colon stent is unchanged in appearance. Multiple hepatic metastasis similar in appearance to the prior studies. Prior cholecystectomy. Bronch iectasis LEFT lower lobe unchanged in appearance. Subsegmental atelectasis in the lingula. Normal pancreatic parenchymal enhancement. Normal spleen. Adrenal glands are normal. No hydronephrosi s. LEFT renal cyst measuring 2.6 cm. Normal caliber abdominal aorta. Celiac and SMA are patent. Normal lumbar spine. No significant free fluid in the abdomen or pelvis. Enhancing fibroid uterus. CT/CT abdomen pelvis w con* [id number] IMPRESSION: 1. Prior postoperative changes partial colectomy with diverting colostomy LEFT lower quadrant is unchanged in appearance. 2. Rectosigmoid stump with sigmoid colon stent appears stable. No evidence of bowel obstruction 3. Moderate cecal constipation RIGHT lower quadrant. 4. Multiple hepatic metastasis are similar in appearance 5. Prior cholecystectomy. 6. Bronchiectasis LEFT lower lobe unchanged in appearance.
[2023-02-14 12:20] VITALS: BP 104/65
[2023-02-14 12:30] VITALS: O2SAT 98
[2023-02-14] MEDS: iohexol 350 mg/mL 500 mL Btl (per mL) IV (13:01)
[2023-02-14 13:41] VITALS: BP 102/62
== END 2023-02-14 14:12 | disposition home or self-care (01) ==
PROVIDERS: Emergency Provider Family Medicine; PCP Family Medicine
DX: R06.02 Shortness of breath (principal); Z79.01 Long term (current) use of anticoagulants; Z79.899 Other long term (current) drug therapy
CPT/HCPCS: 71045; 74177; 80053; 85025; 96374; 96375; 99285; J2270; J2405; J7030; Q9967

== ENCOUNTER 2023-02-15 13:01 | Outpatient (CLI) | payer MEDICAID, SELFPAY ==
[2023-02-15 13:24] LABS: Hemoglobin 11.1 g/dL (11.5-15.3)
== END 2023-02-15 13:02 | disposition home or self-care (01) ==
PROVIDERS: PCP Family Medicine; Visit Provider Family Medicine
DX: Z01.89 Encounter for other specified special examinations (principal)
CPT/HCPCS: 36415; 85018

== ENCOUNTER 2023-02-20 20:43 | Emergency (ER) | payer MEDICAID, SELFPAY ==
--- NOTE | 2023-02-20 20:46 | ECG_ITS ---
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 Measurements Intervals [place] Rate: 104 P: 62 [place]: 131 QRS: 66 QRSD: 72 T: 59 QT: 350 QTc: 462 Interpretive Statements SINUS TACHYCARDIA NONSPECIFIC T-WAVE ABNORMALITY ABNORMAL RHYTHM ECG Compared to ECG 02/12/2023 20:37:54 Sinus rhythm no longer present T-wave abnormality still present Electronically Signed On 02-21-2023 8:11:49 CDT by Ajith Barger M.D. [id number]
--- NOTE | 2023-02-20 20:46 | XRR_ITS ---
PROCEDURE INFORMATION: Exam: XR Chest Exam date and time: 02/20/2023 9:07 PM Age: 53 years old Clinical indication: Pain; Chest pressure; Additional info: Chest pain TECHNIQUE: Imaging protocol: Radiologic exam of the chest. Views: 1 view. COMPARISON: CR XR chest 1V portable [id number] 02/14/2023 11:45 AM FINDINGS: Tubes, catheters and devices: Left chest port catheter with the tip at the cavoatrial junction, in stable position. Lungs: There is mild pulmonary hyperinflation. No consolidation. Pleural spaces: No pleural effusion or pneumothorax. Heart/Mediastinum: The heart and mediastinum are normal in size. Bones/joints: Unremarkable. XR/XR chest 1V portable [id number] IMPRESSION: 1. Mild pulmonary hyperinflation. 2. No acute findings.
[2023-02-20 20:50] VITALS: BP 100/69; PULSE 100; RESP 22; TEMP 36.3; O2SAT 99; BMI 20.5
[2023-02-20 21:08] VITALS: BP 112/78; PULSE 91; RESP 18; O2SAT 98
[2023-02-20 21:38] VITALS: BP 120/72; PULSE 86; RESP 16; O2SAT 95
--- NOTE | 2023-02-20 21:43 | ED_ITS ---
HPI - Abdominal Pain General: Chief Complaint: Abdominal Pain Stated Complaint: cp Time Seen by Provider: 02/20/23 21:34 History of Present Illness: This patient is a 53 year old presenting with chest pain and abdominal pain. She says that both of these pains have been going on for several days. She has a history of colon cancer with mets and has had a colostomy with tumor resection. She also has recently been diagnosed with PEs. She denies any other history - no cardiac issues, diabetes, hypertension. She does have mets in the liver. She has not had vomiting. She has had BRBPR off and on and had an episode this morning. She denies fever. She does feel short of breath. She also complains of cough with dark green sputum. She is on chemotherapy. She is on Eliquis for the diagnosis of PE. She saw her oncologist on 02/17. [facility] ED PFS: Medical History Colon cancer Colon cancer metastasized to liver Diverticulitis Pneumonia Pulmonary embolism Shortness of breath Surgical History History of colon surgery 09/2022 ostomy placed. Family History Other CAD (coronary artery disease) Cancer Hyperlipidemia Hypertension Lung disease Psychiatric illness Stroke Denies family history of Diabetes Clotting disorder Dementia Chronic kidney disease (CKD) Suicide Anesthesia complication Bleeding disorder Social History Smoking and tobacco status: former smoker Quit status (tobacco): has quit using tobacco Former quit date comment: smoked x 10 years Alcohol intake: never Physical Exam Const: COMMON NORMALS: no acute distress, patient oriented x3, no limitations and alert GENERAL APPEARANCE: cooperative and comfortable HENMT: HEAD & SCALP: normal to inspection FACE & SINUS: normal facial exam Eye: GENERAL EYE: appearance normal, both eyes and all related structures Neck/C-Spine: COMMON NORMALS: supple, no meningeal signs and no JVD Chest: COMMONS NORMALS: normal inspection of the chest Resp: COMMON NORMALS: normal respiratory effort, No use of accessory muscles and clear to auscultation bilaterally AUSCULTATION: clear to auscultation bilaterally Cardio: COMMON NORMALS: no JVD, regular rate, regular rhythm and No murmurs present (Cardio) RATE: regular rate RHYTHM: regular rhythm GI: COMMON NORMALS: Normal to inspection, nondistended, normoactive bowel sounds present and Soft to palpation INSPECTION: Yes normal to inspection AUSCULTATION: Yes normoactive bowel sounds PALPATION: Yes Soft to palpation and Yes Tenderness to palpation present (GI) (right upper and lower quadrant) OTHER: ostomy, soft stool present Back/Pelvis: COMMON NORMALS: thoracic and lumbar spine normal to inspection Extremity: COMMON NORMALS: normal to inspection Neuro: COMMON NORMALS: patient oriented x3, moves all extremities, no focal motor deficits and no sensory deficits noted SENSORIUM/ORIENTATION: Yes alert MENINGEAL SIGNS: Yes no meningeal signs Psych: COMMON NORMALS: mental status grossly normal, cooperative and normal affect Skin: COMMON NORMALS: no rashes or lesions noted and turgor normal GENERAL SKIN EXAM: no rashes or lesions noted and turgor normal Course Vital Signs: Vital signs: Vital Signs Temperature 97.4 F L 02/20/23 20:50 Pulse Rate 100 02/20/23 20:50 Respiratory Rate 22 H 02/20/23 20:50 Blood Pressure 100/69 02/20/23 20:50 Pulse Oximetry 99 02/20/23 20:50 Oxygen Delivery Me thod Room Air 02/20/23 20:50 MDM - Abdominal Pain Medical Decision Making Patient with chest pain that feels like her PE presentation - she says it has been going on since she had the PE and is not changed. She also is having abdominal pain that feels similar to her prior abdominal pain. She has pain me dicine at home but says it is not enough to control her pain. She has been having BRBPR intermittent - last episode this morning and she notes that it was brighter than it had been. Blood counts are normal - cardiac work up is neg. Fentanyl dulled the pain, but she is still uncomfortable. I did give her a dose of Toradol here - and although she is on Eliquis and has had some rectal bleeding- I think the benefit of some anti-inflammatory pain control outweighs the risk of bleeding - with the goal of palliation and quality of life. She is already on 60 mg morphine BID with 15 mg morphine for breakthrough and that is not controlling her pain. I gave her a three day supply for home and she can discuss longer term pain control with her oncologist. Lab Data 02/20/23 21:54 02/20/23 21:54 Labs/Radiology: Radiology Impressions Chest X-Ray 02/20/23 20:46 IMPRESSION: 1. Mild pulmonary hyperinflation. 2. No acute findings. Laboratory Results WBC 7.7 10^3/uL (4.0-10.0) 02/20/23 21:54 RBC 3.66 10^6/uL (4.1-5.3) L 02/20/23 21:54 Hgb 10.3 g/dL (11.5-15.3) L 02/20/23 21:54 Hct 33.1 % (37.0-47.0) L 02/20/23 21:54 MCV 90.4 fl (81-99) 02/20/23 21:54 MCH 28.1 pg (28.0-34.0) 02/20/23 21:54 MCHC 31.1 g/dL (30.0-36.0) 02/20/23 21:54 RDW 16.2 % (12.1-15.1) H 02/20/23 21:54 Plt Count 315 10^3/cmm (130-400) 02/20/23 21:54 MPV 9.3 fL (7.4-10.4) 02/20/23 21:54 Neut % (Auto) 37.6 % 02/20/23 21:54 Lymph % (Auto) 42.4 % 02/20/23 21:54 [place] % (Auto) 11.4 % 02/20/23 21:54 Eos % (Auto) 7.8 % 02/20/23 21:54 Baso % (Auto) 0.5 % 02/20/23 21:54 Neut # (Auto) 2.91 10^3/uL (1.8-7.7) 02/20/23 21:54 Lymph # (Auto) 3.3 10^3/uL (0.8-4.8) 02/20/23 21:54 [place] # (Auto) 0.9 10^3/uL (0.2-0.9) 02/20/23 21:54 Eos # (Auto) 0.6 10^3/uL (0.0-0.8) 02/20/23 21:54 Baso # (Auto) 0.0 10^3/uL (0.0-0.1) 02/20/23 21:54 Nucleated RBC % (auto) 0 % 02/20/23 21:54 Nucleated RBCs # 0.0 /100WBC 02/20/23 21:54 PT 18.00 SECONDS (12.1-14.9) H 02/20/23 21:54 INR 1.43 (0.8-1.2) H 02/20/23 21:54 Sodium 134 mmol/L (136-145) L 02/20/23 21:54 Potassium 3.6 mmol/L (3.5-5.1) 02/20/23 21:54 Chloride 98 mmol/L (98-107) 02/20/23 21:54 Carbon Dioxide 24 mmol/L (22-29) 02/20/23 21:54 Anion Gap 15.6 (5-19) 02/20/23 21:54 BUN 7 mg/dL (6-20) 02/20/23 21:54 Creatinine 0.5 mg/dL (0.5-0.9) 02/20/23 21:54 GFR Calculation 130.1 mL/min (90-130) H 02/20/23 21:54 Glucose 117 mg/dL (65-115) H 02/20/23 21:54 Calculated Osmolality 277 mOsm/kg (285-295) L 02/20/23 21:54 Calcium 8.7 mg/dL (8.5-10.5) 02/20/23 21:54 Total Bilirubin 0.3 mg/dL (0.15-1.2) 02/20/23 21:54 AST 11 U/L (0-32) 02/20/23 21:54 ALT 6 U/L (0-33) 02/20/23 21:54 Alkaline Phosphatase 102 U/L (35-105) 02/20/23 21:54 Troponin T Baseline 6 ng/L (0-10) 02/20/23 21:54 Total Protein 5.9 g/dL (6.6-8.7) L 02/20/23 21:54 Albumin 3.3 g/dL (3.5-5.2) L 02/20/23 21:54 Globulin 2.6 g/dL (1.3-4.6) 02/20/23 21:54 Lipase 11 U/L (13-60) L 02/20/23 21:54 Discharge Plan Discharge Patient Disposition: Home Clinical Impression: Cancer related pain, Pulmonary embolism, Hematochezia Condition: Stable Prescriptions: New ketorolac 10 mg tablet 10 mg PO Q8H PRN (Reason: pain) 3 Days Qty: 10 0RF No Action azithromycin [Zithromax Z-Arash] 250 mg tablet See Rx Instructions PO .COMPLEX Qty: 6 0RF Rx Instructions: For 250 mg dose pack: take 500 mg today (day 1), then 250 mg for 4 days (days 2-5) PO morphine 60 mg tablet extended release 60 mg PO Q12H 30 Days Qty: 60 0RF lorazepam 1 mg tablet 0.5 - 1 mg PO Q6H PRN (Reason: Severe Nausea) Qty: 30 3RF promethazine 25 mg tablet 25 mg PO Q6H PRN (Reason: nausea and vomiting) Qty: 20 0RF Eliquis 5 mg tablet 5 mg PO BID@0900,2100 Hold Instructions: Resume on 01/29/23. atorvastatin 40 mg Tablet 40 mg PO BEDTIME Qty: 30 0RF naloxone 4 mg/actuation Waucoma,Non-Aerosol 4 mg INTRANASAL Q2M PRN (Reason: Opiate Reversal) Rx Instructions: spray 1 dose into ONE nostril; alternate nostrils w each dose until help arrives lidocaine-prilocaine 2.5-2.5 % cream See Rx Instructions .ROUTE .COMPLEX Rx Instructions: Apply to port 30-45 minutes prior to port access Singulair 10 mg tablet 10 mg PO QAM morphine 15 mg tablet 15 mg PO .EVERY 4-6 HOURS PRN (Reason: pain) 5-Fu Pump See Rx Instructions .ROUTE .COMPLEX Rx Instructions: as directed Tylenol Ex Str Rapid Release 500 mg Tablet 1,000 mg PO Q6H PRN (Reason: Pain) Discharge Orders: Discharge ED (Routine); Ordered 02/20/23 Ordered By: Huong Mckay Referrals: Clarice Perez MD [Primary Care Provider] - Patient Instructions: Opioid Safety, Pain Management Coding Level of Care Code ED Wax Ball Molder for [facility]
[2023-02-20 22:00] LABS: Basophils % 0.5 %; Eosinophils # 0.6 10^3/uL (0.0-0.8); Eosinophils % 7.8 %; Hematocrit 33.1 % (37.0-47.0); Hemoglobin 10.3 g/dL (11.5-15.3); Lymphocytes # 3.3 10^3/uL (0.8-4.8); Lymphocytes % 42.4 %; Mean Corpuscular HGB Conc 31.1 g/dL (30.0-36.0); Mean Corpuscular Hemoglobin 28.1 pg (28.0-34.0); Mean Corpuscular Volume 90.4 fl (81-99); Mean Platelet Volume 9.3 fL (7.4-10.4); Monocytes # 0.9 10^3/uL (0.2-0.9); Monocytes % 11.4 %; Neutrophils # 2.91 10^3/uL (1.8-7.7); Neutrophils % 37.6 %; Nucleated Red Blood Cells % 0 %; Platelet Count 315 10^3/cmm (130-400); Red Blood Count 3.66 10^6/uL (4.1-5.3); Red Cell Distribution Width 16.2 % (12.1-15.1); White Blood Count 7.7 10^3/uL (4.0-10.0)
[2023-02-20] MEDS: fentaNYL 50 mcg/mL INJ 2mL IVP (22:07)
[2023-02-20] MEDS: ondansetron 2 mg/ML SDV 2 mL 4 MG IVP (22:07)
[2023-02-20 22:14] LABS: INR 1.43 (0.8-1.2)
[2023-02-20 22:20] LABS: Alanine Aminotransferase 6 U/L (0-33); Albumin Level 3.3 g/dL (3.5-5.2); Alkaline Phosphatase 102 U/L (35-105); Anion Gap 15.6 (5-19); Aspartate Amino Transferase 11 U/L (0-32); Blood Urea Nitrogen 7 mg/dL (6-20); Calcium 8.7 mg/dL (8.5-10.5); Carbon Dioxide 24 mmol/L (22-29); Chloride 98 mmol/L (98-107); Globulin 2.6 g/dL (1.3-4.6); Glomerular Filtration Rate 130.1 mL/min (90-130); Glucose 117 mg/dL (65-115); Lipase 11 U/L (13-60); Osmolality Calculated 277 mOsm/kg (285-295); Potassium 3.6 mmol/L (3.5-5.1); Sodium 134 mmol/L (136-145); Total Bilirubin 0.3 mg/dL (0.15-1.2); Total Protein 5.9 g/dL (6.6-8.7)
[2023-02-20 22:22] LABS: Troponin(5th) Baseline 6 ng/L (0-10)
--- NOTE | 2023-02-20 23:07 | ECG_ITS ---
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 Measurements Intervals [place] Rate: 88 P: 50 [place]: 143 QRS: 63 QRSD: 72 T: 60 QT: 390 QTc: 473 Interpretive Statements SINUS RHYTHM MINIMAL ST DEPRESSION [0.025+ mV ST DEPRESSION] Compared to ECG 02/12/2023 20:37:54 ST (T wave) deviation now present T-wave abnormality no longer present Electronically Signed On 02-21-2023 8:16:17 CDT by Ajith Barger M.D. [id number]
[2023-02-20 23:17] VITALS: BP 122/81; PULSE 100; RESP 18; O2SAT 99
[2023-02-20] MEDS: ketorolac 30 mg/mL INJ 15 MG IVP (23:35)
[2023-02-21 00:24] LABS: Troponin 5 2HR Delta 0 ABS# (0-10)
[2023-02-21 00:30] VITALS: PULSE 86; O2SAT 98
== END 2023-02-21 00:30 | disposition home or self-care (01) ==
PROVIDERS: Emergency Medicine; Emergency Provider Emergency Medicine; PCP Family Medicine
DX: G89.3 Neoplasm related pain (acute) (chronic) (principal); C18.9 Malignant neoplasm of colon, unspecified; I26.99 Other pulmonary embolism without acute cor pulmonale; K92.1 Melena; Z87.891 Personal history of nicotine dependence
CPT/HCPCS: 71045; 80053; 83690; 84484; 85025; 85610; 93005; 96374; 96375; 99285; J1885; J2405; J3010

== ENCOUNTER 2023-02-21 15:15 | Inpatient (IN) | payer MEDICAID, SELFPAY ==
[2023-02-21 15:19] VITALS: BP 105/72; PULSE 104; RESP 16; TEMP 36.7; O2SAT 99; BMI 19.9
--- NOTE | 2023-02-21 15:26 | ECG_ITS ---
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 Measurements Intervals [place] Rate: 98 P: 59 [place]: 145 QRS: 49 QRSD: 72 T: 35 QT: 363 QTc: 464 Interpretive Statements SINUS RHYTHM Compared to ECG 02/20/2023 23:07:50 ST (T wave) deviation no longer present Electronically Signed On 02-21-2023 16:18:41 CDT by Ajith Barger M.D. [id number]
--- NOTE | 2023-02-21 15:47 | XRR_ITS ---
PROCEDURE INFORMATION: Exam: XR Chest Exam date and time: 02/21/2023 4:03 PM Age: 53 years old Clinical indication: Pain; Angina pectoris; Additional info: Chest pain TECHNIQUE: Imaging protocol: Radiologic exam of the chest. Views: 1 view. COMPARISON: CR (CHEST, ) 02/20/2023 9:07 PM FINDINGS: Tubes, catheters and devices: Left-sided chest port whose tip projects over the cavoatrial junction unchanged. Lungs: Small patchy indistinct infiltrate left lower lobe more evident on the current study suspicious for pneumonia. Remaining lung teixeira are aerated and clear. Pleural spaces: Unremarkable. No pleural effusion. No pneumothorax. Heart/Mediastinum: Unremarkable. No cardiomegaly. Bones/joints: Unremarkable for age. XR/XR chest 1V portable [id number] IMPRESSION: Patchy left basilar infiltrate suspicious for pneumonia.
[2023-02-21 16:50] LABS: Troponin(5th) Baseline 6 ng/L (0-10)
[2023-02-21 17:19] LABS: Alanine Aminotransferase 8 U/L (0-33); Albumin Level 3.6 g/dL (3.5-5.2); Alkaline Phosphatase 126 U/L (35-105); Blood Urea Nitrogen 8 mg/dL (6-20); Calcium 9.8 mg/dL (8.5-10.5); Carbon Dioxide 18 mmol/L (22-29); Chloride 99 mmol/L (98-107); Globulin 3.4 g/dL (1.3-4.6); Glomerular Filtration Rate 88.2 mL/min (90-130); Glucose 134 mg/dL (65-115); Osmolality Calculated 280 mOsm/kg (285-295); Sodium 135 mmol/L (136-145); Total Bilirubin 0.3 mg/dL (0.15-1.2)
[2023-02-21 17:21] LABS: Aspartate Amino Transferase 18 U/L (0-32)
[2023-02-21 17:30] VITALS: BP 105/80; PULSE 109; RESP 20; O2SAT 100
--- NOTE | 2023-02-21 17:35 | CTR_ITS ---
PROCEDURE INFORMATION: Exam: CTA Chest With Contrast Exam date and time: 02/21/2023 6:26 PM Age: 53 years old Clinical indication: Pain; On breathing; Additional info: Chest pain, HX pe, current colon cancer TECHNIQUE: Imaging protocol: Computed tomographic angiography of the chest with contrast. Exam focused on the arteries. 3D rendering (Not supervised by radiologist): MIP and/or 3D reconstructed images were created by the technologist. Radiation optimization: All CT scans at this facility use at least one of these dose optimization techniques: automated exposure control; mA and/or kV adjustment per patient size (includes targeted exams where dose is matched to clinical indication); or iterative reconstruction. Contrast material: OMNI 350; Contrast volume: 100 ml; Contrast route: INTRAVENOUS (IV); REPORTING DATA: Count of CT and Cardiac NM exams in prior 12 months: This patient has received 9 known CTs and 0 known cardiac nuclear medicine studies in the 12 months prior to the current study. COMPARISON: CT angio chest w abd pel w con 01/17/2023 9:07 PM RADIATION DOSE METRICS: Total DLP (mGy-cm): 198.71 FINDINGS: Pulmonary arteries: New partial filling defect within the main left pulmonary artery branch. Stable occluded small pulmonary artery branches in the left lower lobe. Aorta: Unremarkable. No aortic aneurysm. No aortic dissection. Lungs: Stable collapse with bronchiectasis in the right middle lobe. Stable pneumatocele in the right lower lobe. Scarring in the lung apices. Filling defects within multiple bronchi in the inferior lingular segment of the left upper lobe have increased. Increased linear opacities in the lingula. Obstruction and expansion of multiple left lower lobe bronchi has worsened. Interlobular septal thickening in the left lower lobe has increased slightly. Small centrilobular opacities in the inferior right lower lobe. Pleural spaces: Unremarkable. No pneumothorax. No pleural effusion. Heart: The RV/LV ratio is 1.1. No cardiomegaly. No pericardial effusion. Lymph nodes: Unremarkable. No enlarged lymph nodes. Liver: Inhomogenous liver with multiple small hepatic nodules. Gallbladder and bile ducts: Cholecystectomy. Bones/joints: Kyphosis and degenerative changes of the spine. No acute fracture. Soft tissues: Unremarkable. CT/CT angio chest PE protcl [id number] IMPRESSION: 1. Propagation (worsening) of the thrombus in the proximal left lower lobe pulmonary artery. Persistent chronic emboli or thrombus in left lower lobe artery branches with 2. Worsened occlusion and expansion bronchi in the left lower lobe. And endobronchial malignant process cannot be excluded. Follow-up with bronchoscopy should be considered. 3. Increased interlobular septal thickening in the left lower lobe. Lymphangitic spread of malignant tumor is not excluded. 4. Mild centrilobular opacities in the right lower lobe could represent infectious bronchiolitis or mild aspiration. 5. Multiple hepatic nodules are suspicious for worsening metastatic disease.
[2023-02-21 17:45] VITALS: RESP 18; O2SAT 97
--- NOTE | 2023-02-21 17:50 | W.ED.CHESTPA ---
HPI - Chest Pain General: Chief Complaint: Chest Pain Stated Complaint: chest pain, arms/hands stiff Time Seen by Provider: 02/21/23 17:27 History of Present Illness: Patient arrives to the ER complaining of chest pain shortness of breath after chemotherapy today. Patient states that Dr. Jacobs told her to come down here and he worked up for PE. Patient does have a history of colon cancer and is currently deceiving chemotherapy for this. Patient does have a history of a PE and is on Eliquis currently. Patient has not missed any doses. Review of Systems General: Reports: 10 or more systems reviewed and unremarkable except in HPI and below PFSH ED PFSH: Medical History Colon cancer Colon cancer metastasized to liver Diverticulitis Pneumonia Pulmonary embolism Shortness of breath Surgical History History of colon surgery 09/2022 ostomy placed. Family History Other CAD (coronary artery disease) Cancer Hyperlipidemia Hypertension Lung disease Psychiatric illness Stroke Denies family history of Diabetes Clotting disorder Dementia Chronic kidney disease (CKD) Suicide Anesthesia complication Bleeding disorder Social History Smoking and tobacco status: former smoker Quit status (tobacco): has quit using tobacco Former quit date comment: smoked x 10 years Alcohol intake: never Physical Exam Const: COMMON NORMALS: no acute distress, average body habitus, patient oriented x3, no limitations, healthy appearing, alert and well nourished HENMT: COMMON NORMALS: normocephalic, atraumatic, hearing grossly normal bilaterally, external ears normal, Normal external nose present and moist oral mucous membranes HEAD & SCALP: normocephalic and atraumatic NOSE: Normal external nose present EXTERNAL EAR: Yes external ears normal Eye: COMMON NORMALS: Equal, round and reactive pupils present, EOMs intact bilaterally, conjunctivae normal and no scleral icterus CONJUNCTIVA: Yes conjunctivae normal PUPIL: Yes Equal, round and reactive pupils present Neck/C-Spine: COMMON NORMALS: full ROM, no lymphadenopathy, supple, no meningeal signs, no JVD and Thyroid normal THYROID: Thyroid normal Chest: COMMONS NORMALS: normal inspection of the chest and normal palpation of entire chest wall Resp: COMMON NORMALS: normal respiratory effort, No retractions, No use of accessory muscles and clear to auscultation bilaterally AUSCULTATION: clear to auscultation bilaterally Cardio: COMMON NORMALS: no JVD, regular rate, regular rhythm, S1 normal heart sound present, S2 normal heart sound present, No gallops present (Cardio), No clicks present (Cardio), No murmurs present (Cardio) and No rub (Cardio) RATE: regular rate RHYTHM: regular rhythm HEART SOUNDS: S1 normal heart sound present and S2 normal heart sound present GI: COMMON NORMALS: Normal to inspection, nondistended, normoactive bowel sounds present, Soft to palpation, non-tender, No hepatosplenomegaly present and no masses PALPATION: Yes Soft to palpation and Yes No hepatosplenomegaly present Neuro: COMMON NORMALS: patient oriented x3 SENSORIUM/ORIENTATION: Yes alert MENINGEAL SIGNS: Yes no meningeal signs Course Vital Signs: Vital signs: Vital Signs Temperature 98.1 F 02/21/23 15:19 Pulse Rate 109 H 02/21/23 17:30 Respiratory Rate 18 02/21/23 19:25 Blood Pressure 105/80 02/21/23 17:30 Pulse Oximetry 99 02/21/23 19:25 Oxygen Delivery Me thod Room Air 02/21/23 17:45 MDM - Chest Pain Medical Decision Making Patient presents to the ER today complaining of chest pain shortness of breath after chemotherapy. Patient says her oncologist Dr. Jacobs wanted her to be checked over for PE. Patient is currently taking Eliquis at 5 mg twice a day. Lab work was obtained as well as a CTA. CTA showed worsening of a thrombus in the proximal left lower lobe pulmonary artery worsened occlusion and expansion of the bronchi in the left lower lobe. Dr. Yen was consulted and she wanted Dr. Lisa consulted from a pulmonary standpoint to see if we can manage this patient here or she needs to be transferred out. Dr. Lisa was called and informed about the patient he wishes us to get a bilateral venous ultrasound, echo, D-dimer, proBNP, lactic acid. He wants to us to call him back after we get these results so he can decide if patient can stay here on Lovenox treatment or needs to be shipped out for further intervention. Dr. Lisa called back and said he got a hold with Dr. Jacobs and we will go ahead and admit the patient here and put on Lovenox 1 mg/kg subcu twice daily. He said he will go ahead and call Dr. Yen and update her. Differential Diagnosis Unlikely acute massive pulmonary embolism, acute respiratory failure, acute myocardial infarction, cardiac arrest or sudden cardiac Medical Records I reviewed the patient's medical records. Lab Data I reviewed the patient's lab results. 02/21/23 18:19 02/21/23 16:17 Radiology Impressions Chest X-Ray 02/21/23 15:47 IMPRESSION: Patchy left basilar infiltrate suspicious for pneumonia. Chest CTA 02/21/23 17:35 IMPRESSION: 1. Propagation (worsening) of the thrombus in the proximal left lower lobe pulmonary artery. Persistent chronic emboli or thrombus in left lower lobe artery branches with 2. Worsened occlusion and expansion bronchi in the left lower lobe. And endobronchial malignant process cannot be excluded. Follow-up with bronchoscopy should be considered. 3. Increased interlobular septal thickening in the left lower lobe. Lymphangitic spread of malignant tumor is not excluded. 4. Mild centrilobular opacities in the right lower lobe could represent infectious bronchiolitis or mild aspiration. 5. Multiple hepatic nodules are suspicious for worsening metastatic disease. ADDENDUM: 02/21/231913 THIS REPORT CONTAINS FINDINGS THAT MAY BE CRITICAL TO PATIENT CARE. The findings were verbally communicated via telephone conference with Pelon León at 7:13 PM CDT on 02/21/2023. The findings were acknowledged and understood. Laboratory Results WBC 2.9 10^3/uL (4.0-10.0) L 02/21/23 18: RBC 4.55 10^6/uL (4.1-5.3) 02/21/23 18: Hgb 12.7 g/dL (11.5-15.3) 02/21/23 18: Hct 41.0 % (37.0-47.0) 02/21/23 18: MCV 90.1 fl (81-99) 02/21/23 18: MCH 27.9 pg (28.0-34.0) L 02/21/23 18: MCHC 31.0 g/dL (30.0-36.0) 02/21/23 18:19 RDW 15.8 % (12.1-15.1) H 02/21/23 18:19 Plt Count 386 10^3/cmm (130-400) 02/21/23 18:19 MPV 9.5 fL (7.4-10.4) 02/21/23 18:19 Neut % (Auto) 75.0 % 02/21/23 18:19 Lymph % (Auto) 22.8 % 02/21/23 18:19 [place] % (Auto) 1.4 % 02/21/23 18:19 Eos % (Auto) 0.0 % 02/21/23 18:19 Baso % (Auto) 0.4 % 02/21/23 18:19 Neut # (Auto) 2.14 10^3/uL (1.8-7.7) 02/21/23 18:19 Lymph # (Auto) 0.7 10^3/uL (0.8-4.8) L 02/21/23 18:19 [place] # (Auto) 0.0 10^3/uL (0.2-0.9) L 02/21/23 18:19 Eos # (Auto) 0.0 10^3/uL (0.0-0.8) 02/21/23 18:19 Baso # (Auto) 0.0 10^3/uL (0.0-0.1) 02/21/23 18:19 Nucleated RBC % (auto) 0 % 02/21/23 18:19 Nucleated RBCs # 0.0 /100WBC 02/21/23 18:19 Sodium 135 mmol/L (136-145) L 02/21/23 16:17 Potassium 4.0 mmol/L (3.5-5.1) 02/21/23 16:17 Chloride 99 mmol/L (98-107) 02/21/23 16:17 Carbon Dioxide 18 mmol/L (22-29) L 02/21/23 16:17 Anion Gap 22.0 (5-19) H 02/21/23 16:17 BUN 8 mg/dL (6-20) 02/21/23 16:17 Creatinine 0.7 mg/dL (0.5-0.9) 02/21/23 16:17 GFR Calculation 88.2 mL/min (90-130) L 02/21/23 16:17 Glucose 134 mg/dL (65-115) H 02/21/23 16:17 Calculated Osmolality 280 mOsm/kg (285-295) L 02/21/23 16:17 Calcium 9.8 mg/dL (8.5-10.5) 02/21/23 16:17 Total Bilirubin 0.3 mg/dL (0.15-1.2) 02/21/23 16:17 AST 18 U/L (0-32) 02/21/23 16:17 ALT 8 U/L (0-33) 02/21/23 16:17 Alkaline Phosphatase 126 U/L (35-105) H 02/21/23 16:17 Troponin T Baseline 6 ng/L (0-10) 02/21/23 16:17 Troponin T 120 Minute 10.26 ng/L (0-10) H 02/21/23 18:19 Delta Troponin T 4.26 ABS# (0-10) 02/21/23 18:19 Total Protein 7.0 g/dL (6.6-8.7) 02/21/23 16:17 Albumin 3.6 g/dL (3.5-5.2) 02/21/23 16:17 Globulin 3.4 g/dL (1.3-4.6) 02/21/23 16:17 EKG Data EKG 1: I personally reviewed and interpreted this EKG as follows: EKG interpretation date: 02/21/23 EKG interpretation time: 17:55 Prior EKG tracings: not available for review Interpretation: EKG showed sinus tachycardia with ventricular rate of 100 bpm, MO interval 164, QRS duration 77, QTc of 412, no ST-T wave changes Discharge Plan Discharge Patient Disposition: Admitted As Inpatient Clinical Impression: Pulmonary embolism, Chronic anticoagulation, Colon cancer metastasized to liver Condition: Stable Coding Level of Care Code ED Economics Instructor for [facility]
--- NOTE | 2023-02-21 17:55 | ECG_ITS ---
[facility] Test Date: 2023-02-21 Pat Name: Judi Lam Department: Room: Gender: Female Finishing Supervisor: : 1970 Requested By: Chantal Parker Order Number: [id number] Marissa MD: Julissa Quiros M.D. Measurements Intervals [place] Rate: 100 P: 49 NM: 164 QRS: 40 QRSD: 77 T: 41 QT: 355 QTc: 458 Interpretive Statements SINUS TACHYCARDIA ABNORMAL RHYTHM ECG Compared to ECG 02/21/2023 15:26:36 Sinus rhythm no longer present Electronically Signed On 02-22-2023 9:55:31 CDT by Julissa Quiros M.D. [id number]
[2023-02-21] MEDS: iohexol 350 mg/mL 500 mL Btl (per mL) IV (18:38)
[2023-02-21 18:49] LABS: Basophils % 0.4 %; Hemoglobin 12.7 g/dL (11.5-15.3); Lymphocytes # 0.7 10^3/uL (0.8-4.8); Lymphocytes % 22.8 %; Mean Corpuscular Hemoglobin 27.9 pg (28.0-34.0); Mean Corpuscular Volume 90.1 fl (81-99); Mean Platelet Volume 9.5 fL (7.4-10.4); Monocytes % 1.4 %; Neutrophils # 2.14 10^3/uL (1.8-7.7); Nucleated Red Blood Cells % 0 %; Platelet Count 386 10^3/cmm (130-400); Red Blood Count 4.55 10^6/uL (4.1-5.3); Red Cell Distribution Width 15.8 % (12.1-15.1); White Blood Count 2.9 10^3/uL (4.0-10.0)
[2023-02-21 19:00] LABS: Troponin 5 2HR 10.26 ng/L (0-10); Troponin 5 2HR Delta 4.26 ABS# (0-10)
[2023-02-21] MEDS: ondansetron 2 mg/ML SDV 2 mL 4 MG IVP (19:23)
[2023-02-21 19:25] VITALS: RESP 18; O2SAT 99
[2023-02-21] MEDS: morphine 4 mg/mL SDV 1 mL IVP (19:25)
--- NOTE | 2023-02-21 20:06 | USR_ITS ---
PROCEDURE INFORMATION: Exam: US Duplex Lower Extremity Veins, Bilateral Exam date and time: 02/21/2023 8:53 PM Age: 53 years old Clinical indication: Other: History of pulmonary emboli January 2023. History of dvt. Presenting with shortness of breath. No le edema or erythema or pain. ; Additional info: Pe, HX dvt, TECHNIQUE: Imaging protocol: Real-time duplex ultrasound of the bilateral extremities with 2-D guillen scale, color Doppler flow and spectral waveform analysis including responses to compression and other maneuvers (when performed) with image documentation. Complete exam focused on the lower extremity veins. COMPARISON: CT abdomen pelvis w con* [id number] 02/14/2023 12:57 PM FINDINGS: Right deep veins: Unremarkable. The common femoral, femoral, proximal profunda femoral and popliteal veins are patent without thrombus. Normal Doppler waveforms. Normal compressibility and/or augmentation response. Right superficial veins: Saphenofemoral junction is patent without thrombus. Left deep veins: Unremarkable. The common femoral, femoral, proximal profunda femoral and popliteal veins are patent without thrombus. Normal Doppler waveforms. Normal compressibility and/or augmentation response. Left superficial veins: Saphenofemoral junction is patent without thrombus. Soft tissues: Unremarkable. US/[place] [id number] IMPRESSION: No evidence of deep vein thrombosis.
[2023-02-21 20:31] LABS: D Dimer 0.34 ug/mIFEU (0-0.59)
[2023-02-21 20:38] LABS: Lactic Sepsis W/Reflex 3.2 mmol/L (0.5-2.2)
[2023-02-21 20:43] LABS: NT Pro B Type Natriuretic Pept 116 pg/mL (0-125)
--- NOTE | 2023-02-21 21:31 | ECG_ITS ---
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 Measurements Intervals [place] Rate: 92 P: 55 NC: 151 QRS: 46 QRSD: 68 T: 34 QT: 369 QTc: 458 Interpretive Statements SINUS RHYTHM Compared to ECG 02/21/2023 17:55:13 Sinus tachycardia no longer present Electronically Signed On 02-22-2023 9:55:02 CDT by Julissa Quiros M.D. [id number]
[2023-02-21] MEDS: enoxaparin 60 mg/0.6 mL Syringe 50 MG SUBCUT (21:53)
[2023-02-21 22:07] LABS: Reflex Lactate Order REFLEX LACTIC ORDERD
[2023-02-21 22:11] VITALS: BP 119/82; PULSE 99; RESP 17; TEMP 36.4; O2SAT 100
[2023-02-21 22:34] VITALS: RESP 16
[2023-02-21] MEDS: morphine ER (12 HR) 30 mg tablet 60 MG PO (22:34)
[2023-02-21] MEDS: pantoprazole 40 mg SDV IVP (22:35)
--- NOTE | 2023-02-21 22:57 | PM.HP ---
Providers/Chief Complaint Admitting Physician: Mylene Yen MD Primary Care Provider: Clarice Perez MD Chief Complaint: chest pain, arms/hands stiff History of Present Illness Judi Lam is a 53 year old female with poorly differentiated adenoca of sigmoid colon s/p initial sigmoid stenting followed by partial colectomy with a diverting colostomy left lower quadrant on sep 2022. She receievd prolonged course of abx between aug-october 2022 for multiple intraabdominal abscess from cecal perfortaion. She is currently on palliative chemotherapy with FOLFOX started on December 21, 2022. Disease course complicated by development of PE on January 04, 2023 for which she is currently on Eliquis. She experienced an episode of bright red rectal bleeding 2 days ago for which she was scheduled to see Dr. floyd in the morning on 02/22/23. The bleeding has since resolved. Hemoglobin is currently stable. She followed up with Dr. Jacobs from oncology this morning where she complained of worsening chest and abdominal pain and also feeling short of breath after receiving chemotherapy today. CTA chest performed earlier today showed worsening of a thrombus in the proximal left lower lobe pulmonary artery and persistent chronic emboli in LLL. There was also noted worsening occlusion in the LLL bronchi , possible endobronchial tumor invasion and worsening hepatic metastasis. Review of Systems General: Reports: 10 or more systems reviewed and unremarkable except in HPI and below Const: Denies: fever(s), chills or body aches Eyes: Denies: change in vision, blurry vision or photophobia ENMT: Reports: hoarseness; Denies: throat pain, enlarged tonsils, odynophagia or nasal congestion Card: Denies: chest pain, palpitations, irregular heart rhythm, edema, swelling of feet/ankles, lightheadedness, pre-syncope, dyspnea on exertion or orthopnea Resp: Denies: dyspnea, productive cough, non-productive cough, wheezing, stridor, pain on inspiration, change in phlegm color, hemoptysis or chest congestion GI: Denies: abdominal pain, nausea, vomiting, hematemesis, coffee ground emesis, dysphagia, heartburn, diarrhea, constipation, GI cramping, change in stool character, hematochezia or melena : Denies: flank pain, difficulty voiding, dysuria, urinary frequency, urinary urgency, urinary hesitancy or hematuria Musc: Denies: neck pain, back pain, extremity pain, joint swelling, joint warmth or deformity Neuro: Denies: headache(s), numbness in extremities, weakness in extremities, sensory changes, difficulty walking, frequent falls, dizziness, vertigo, behavioral changes, Slurred speech present or seizure-like activity Psych: Denies: anxiety, depression, suicidal ideation or homicidal ideation Endo: Denies: polyuria, polydipsia, tired all the time, cold intolerance or hot flashes Brian/Lymph: Denies: easy bruising or easy bleeding Medications/Allergies Home Medications Medication Instructions Recorded Confirmed Last Taken Type naloxone 4 mg/actuation nasal spray 4 mg intranasal Q2M PRN Opiate 09/25/22 02/21/23 Unknown History Reversal promethazine 25 mg tablet 25 mg PO Q6H PRN nausea and 11/13/22 02/21/23 Unknown Rx vomiting #20 tabs apixaban 5 mg tablet (Eliquis) 5 mg PO BID@0900,2100 01/18/23 02/21/23 02/14/23 History atorvastatin 40 mg tablet 40 mg PO BEDTIME #30 tabs 01/22/23 02/21/23 02/13/23 Rx lorazepam 1 mg tablet 0.5 - 1 mg PO Q6H PRN Severe 02/04/23 02/21/23 Unknown Rx Nausea #30 tabs morphine 60 mg tablet,extended 60 mg PO Q12H 30 days #60 tabs 02/04/23 02/21/23 02/14/23 05:40 Rx release 5-Fu Pump See Rx Instructions .Route .COMPLEX 02/14/23 02/21/23 Unknown History acetaminophen 500 mg tablet 1,000 mg PO Q6H PRN Pain 02/14/23 02/21/23 Unknown History lidocaine-prilocaine 2.5 %-2.5 % See Rx Instructions .Route .COMPLEX 02/14/23 02/21/23 Unknown History topical cream montelukast 10 mg tablet 10 mg PO QAM 02/14/23 02/21/23 02/14/23 History (Singulair) ketorolac 10 mg tablet 10 mg PO Q8H PRN pain 3 days #10 02/20/23 02/21/23 Unknown Rx tabs morphine 15 mg immediate release 15 mg PO .EVERY 4-6 HOURS PRN pain 02/21/23 02/21/23 Unknown Rx tablet 30 days #60 tabs Allergies Allergy/AdvReac Type Severity Reaction Status Date / Time tramadol [From [facility]] Allergy ALGY-Anaphy Verified 02/21/23 08:52 laxis PFSH Acute PFSH: Medical History Colon cancer Colon cancer metastasized to liver Diverticulitis Pneumonia Pulmonary embolism Shortness of breath Surgical History History of colon surgery 09/2022 ostomy placed. Family History Other CAD (coronary artery disease) Cancer Hyperlipidemia Hypertension Lung disease Psychiatric illness Stroke Denies family history of Diabetes Clotting disorder Dementia Chronic kidney disease (CKD) Suicide Anesthesia complication Bleeding disorder Social History Smoking and tobacco status: former smoker Quit status (tobacco): has quit using tobacco Former quit date comment: smoked x 10 years Alcohol intake: never Vitals/I&O/Wt Last Vital Signs Temp 97.5 F L 02/21/23 22:11 Pulse 99 02/21/23 22:11 Resp 16 02/21/23 22:34 BP 119/82 02/21/23 22:11 Pulse Ox 100 02/21/23 22:11 O2 Del Method Room Air 02/21/23 17:45 Weight last 48 hrs Weight 52.617 kg Physical Exam Narrative: General: No acute distress, AO x3 HEENT: PERRLA, pupils bilaterally equal and reactive, pallors not present Chest: Normal vesicular breath sounds, no added sounds, equal good air entry bilaterally CVS: S1-S2 regular, no murmurs, no tachycardia, no gallops, no rubs Abdomen: Soft, nontender, no organomegaly, bowel sounds present Neuro: No focal deficits, no facial deformity, AO x3, power 5/5 in all limbs Data 02/22/23 05:57 02/21/23 16:17 Other data: Radiology Impressions Chest X-Ray 02/21/23 15:47 IMPRESSION: Patchy left basilar infiltrate suspicious for pneumonia. Chest CTA 02/21/23 17:35 IMPRESSION: 1. Propagation (worsening) of the thrombus in the proximal left lower lobe pulmonary artery. Persistent chronic emboli or thrombus in left lower lobe artery branches with 2. Worsened occlusion and expansion bronchi in the left lower lobe. And endobronchial malignant process cannot be excluded. Follow-up with bronchoscopy should be considered. 3. Increased interlobular septal thickening in the left lower lobe. Lymphangitic spread of malignant tumor is not excluded. 4. Mild centrilobular opacities in the right lower lobe could represent infectious bronchiolitis or mild aspiration. 5. Multiple hepatic nodules are suspicious for worsening metastatic disease. ADDENDUM: 02/21/231913 THIS REPORT CONTAINS FINDINGS THAT MAY BE CRITICAL TO PATIENT CARE. The findings were verbally communicated via telephone conference with Pelon León at 7:13 PM CDT on 02/21/2023. The findings were acknowledged and understood. Venous Duplex 02/21/23 20:06 IMPRESSION: No evidence of deep vein thrombosis. Laboratory Results WBC 2.9 10^3/uL (4.0-10.0) L 02/21/23 18:19 RBC 4.55 10^6/uL (4.1-5.3) 02/21/23 18:19 Hgb 12.7 g/dL (11.5-15.3) 02/21/23 18:19 Hct 41.0 % (37.0-47.0) 02/21/23 18:19 MCV 90.1 fl (81-99) 02/21/23 18:19 MCH 27.9 pg (28.0-34.0) L 02/21/23 18:19 MCHC 31.0 g/dL (30.0-36.0) 02/21/23 18:19 RDW 15.8 % (12.1-15.1) H 02/21/23 18:19 Plt Count 386 10^3/cmm (130-400) 02/21/23 18:19 MPV 9.5 fL (7.4-10.4) 02/21/23 18:19 Neut % (Auto) 75.0 % 02/21/23 18:19 Lymph % (Auto) 22.8 % 02/21/23 18:19 [place] % (Auto) 1.4 % 02/21/23 18:19 Eos % (Auto) 0.0 % 02/21/23 18:19 Baso % (Auto) 0.4 % 02/21/23 18:19 Neut # (Auto) 2.14 10^3/uL (1.8-7.7) 02/21/23 18:19 Lymph # (Auto) 0.7 10^3/uL (0.8-4.8) L 02/21/23 18:19 [place] # (Auto) 0.0 10^3/uL (0.2-0.9) L 02/21/23 18:19 Eos # (Auto) 0.0 10^3/uL (0.0-0.8) 02/21/23 18:19 Baso # (Auto) 0.0 10^3/uL (0.0-0.1) 02/21/23 18:19 Nucleated RBC % (auto) 0 % 02/21/23 18:19 Nucleated RBCs # 0.0 /100WBC 02/21/23 18:19 D-Dimer 0.34 ug/mIFEU (0-0.59) 02/21/23 18:19 Sodium 135 mmol/L (136-145) L 02/21/23 16:17 Potassium 4.0 mmol/L (3.5-5.1) 02/21/23 16:17 Chloride 99 mmol/L (98-107) 02/21/23 16:17 Carbon Dioxide 18 mmol/L (22-29) L 02/21/23 16:17 Anion Gap 22.0 (5-19) H 02/21/23 16:17 BUN 8 mg/dL (6-20) 02/21/23 16:17 Creatinine 0.7 mg/dL (0.5-0.9) 02/21/23 16:17 GFR Calculation 88.2 mL/min (90-130) L 02/21/23 16:17 Glucose 134 mg/dL (65-115) H 02/21/23 16:17 Calculated Osmolality 280 mOsm/kg (285-295) L 02/21/23 16:17 Lactic Acid 3.2 mmol/L (0.5-2.2) H 02/21/23 18:19 Calcium 9.8 mg/dL (8.5-10.5) 02/21/23 16:17 Total Bilirubin 0.3 mg/dL (0.15-1.2) 02/21/23 16:17 AST 18 U/L (0-32) 02/21/23 16:17 ALT 8 U/L (0-33) 02/21/23 16:17 Alkaline Phosphatase 126 U/L (35-105) H 02/21/23 16:17 Troponin T Baseline 6 ng/L (0-10) 02/21/23 16:17 Troponin T 120 Minute 10.26 ng/L (0-10) H 02/21/23 18:19 Delta Troponin T 4.26 ABS# (0-10) 02/21/23 18:19 Troponin T Hi Sens 6Hr Cancelled 02/21/23 22:45 Troponin T Hi Sens 6Hr Delta Cancelled 02/21/23 22:45 NT-Pro-B Natriuret Pep 116 pg/mL (0-125) 02/21/23 18:19 Total Protein 7.0 g/dL (6.6-8.7) 02/21/23 16:17 Albumin 3.6 g/dL (3.5-5.2) 02/21/23 16:17 Globulin 3.4 g/dL (1.3-4.6) 02/21/23 16:17 A&P Assessment and plan (1) Pulmonary embolism: Worsening pulmonary embolism while on Eliquis as outpatient. Patient will likely need to switch anticoagulation to heparin based regimen. We will place her on a heparin drip currently while awaiting surgical assessment for rectal bleeding 2 days ago and likely plan discharge on Lovenox 1 mg/kg every 12 hours. Check echocardiogram Currently saturating 99% on room air Pulmonology service has been consulted (2) Colon cancer metastasized to liver: Known colon cancer with mets to the liver Additionally now also concern for endobronchial tumor invasion on CT chest No current signs or symptoms of pneumonia, holding off on antibiotics Pulmonary consult to assess for possible bronchoscopy (3) Bleeding per rectum: Suspect may be related to bleeding from the rectosigmoid stump with the stent. She was scheduled to see general surgery on the morning of 711. Currently bleeding appears to have resolved. Hemoglobin is stable We will consult General surgery for assessment while admitted for worsening PE. (4) Cancer related pain: Currently controlled on her home regimen of morphine, will continue the same Attestations Medical Necessity Statement*: Anticipate greater than 2 midnight admission for above defined care Coding Level of Care Code Acute Code for Chg Fwd Diagnoses Pulmonary embolism I26.99 Colon cancer metastasized to liver C18.9; C78.7 Bleeding per rectum K62.5 Cancer related pain G89.3
[2023-02-21] MEDS: heparin drip 25,000 UNIT/500 ML PREMIX 15 UNIT IV (23:18)
[2023-02-21] MEDS: heparin 5,000 unit/mL INJ 1 mL IV (23:20)
[2023-02-21 23:53] LABS: Lactic Acid level (Lactate) 2.5 mmol/L (0.5-2.2)
[2023-02-22] VITALS (14 sets, daily range): BP systolic 95–129; BP diastolic 62–82; PULSE 56–92; RESP 14–22; TEMP 36.4–37; O2SAT 95–99
[2023-02-22 00:10] LABS: Troponin 5 6HR Delta 0 ng/L (0-12)
[2023-02-22] MEDS: morphine 4 mg/mL SDV 1 mL 2 MG IVP ×3 (01:08→19:20)
[2023-02-22] MEDS: morphine IR 15 mg Tablet PO (05:39)
--- NOTE | 2023-02-22 06:33 | PM.CONSULT ---
Providers/Reason For Consult Consulting Physician/Specialty*: Dr. Mo Coffman, DO/General surgery Reason for Consult*: Hematochezia Attending Physician: Mylene Yen MD Primary Care Provider: Clarice Perez MD History of Present Illness History of Present Illness Judi Lam is a 53 year old female with known metastatic colon cancer is currently in the hospital with pulmonary emboli. She is on oral anticoagulation at home and has not stopped it. She had a stent placed in her rectosigmoid and subsequently had a colostomy performed with the rectosigmoid still in place with a stent. On Tuesday she had 1 episode of hematochezia and has not had any further bleeding since. She denies any new abdominal pain or other symptoms other than difficulty breathing. General surgery was consulted due to the hematochezia and need for anticoagulation. Review of Systems General: Reports: 10 or more systems reviewed and unremarkable except in HPI and below Medications/Allergies Home Medications Medication Instructions Recorded Confirmed Last Taken Type naloxone 4 mg/actuation nasal spray 4 mg intranasal Q2M PRN Opiate 09/25/22 02/22/23 Unknown History Reversal promethazine 25 mg tablet 25 mg PO Q6H PRN nausea and 11/13/22 02/22/23 Unknown Rx vomiting #20 tabs apixaban 5 mg tablet (Eliquis) 5 mg PO BID@0900,2100 01/18/23 02/22/23 02/14/23 History atorvastatin 40 mg tablet 40 mg PO BEDTIME #30 tabs 01/22/23 02/22/23 02/13/23 Rx lorazepam 1 mg tablet 0.5 - 1 mg PO Q6H PRN Severe 02/04/23 02/22/23 Unknown Rx Nausea #30 tabs morphine 60 mg tablet,extended 60 mg PO Q12H 30 days #60 tabs 02/04/23 02/22/23 02/14/23 05:40 Rx release 5-Fu Pump See Rx Instructions .Route .COMPLEX 02/14/23 02/22/23 02/21/23 History states put on 02/21/ acetaminophen 500 mg tablet 1,000 mg PO Q6H PRN Pain 02/14/23 02/22/23 Unknown History lidocaine-prilocaine 2.5 %-2.5 % See Rx Instructions .Route .COMPLEX 02/14/23 02/22/23 Unknown History topical cream montelukast 10 mg tablet 10 mg PO QAM 02/14/23 02/22/23 02/14/23 History (Singulair) morphine 15 mg immediate release 15 mg PO .EVERY 4-6 HOURS PRN pain 02/21/23 02/22/23 Unknown Rx tablet 30 days #60 tabs azithromycin 250 mg tablet See Rx Instructions .Route .COMPLEX 02/22/23 02/22/23 02/21/23 History finsihed 02/21/23 potassium chloride 20 mEq 20 meq PO QAM 02/22/23 02/22/23 Unknown History tablet,extended release Allergies Allergy/AdvReac Type Severity Reaction Status Date / Time tramadol [From [facility]] Allergy ALGY-Anaphy Verified 02/22/23 07:35 laxis Current Medications Generic Name Dose Route Start Last Admin Trade Name Freq PRN Reason Stop Dose Admin Alprazolam 0.5 mg 02/22/23 14:29 02/23/23 00:29 Alprazolam 0.5 Mg Tablet PO 0.5 mg BID PRN Administration ANXIETY Heparin Sodium (Porcine) 0 unit 02/21/23 22:11 02/21/23 23:20 Heparin 5,000 Unit/Ml Inj 1 Ml IV 2,700 unit PRN PRN Administration Heparin weight-base protocol Protocol Piperacillin Sod/Tazobactam 50 mls @ 12.5 mls/hr 02/22/23 11:30 02/23/23 02:55 Sod 3.375 gm/ Sodium Chloride IV Not Given Q8H FABIOLA Protocol As Directed Morphine Sulfate 2 mg 02/21/23 22:11 02/22/23 19:20 Morphine 4 Mg/Ml Sdv 1 Ml IVP 2 mg Q4H PRN Administration SEVERE PAIN Morphine Sulfate 15 mg 02/21/23 22:13 02/23/23 04:39 Morphine Ir 15 Mg Tablet PO 15 mg .EVERY 4-6 HOURS PRN Administration pain Morphine Sulfate 60 mg 02/21/23 22:30 02/22/23 22:06 Morphine Er (12 Hr) 30 Mg Tablet PO 60 mg Q12H FABIOLA Administration Pantoprazole Sodium 40 mg 02/21/23 22:15 02/22/23 22:07 Pantoprazole 40 Mg Sdv IVP 40 mg Q24H FABIOLA Administration PFSH Acute PFSH: Medical History Colon cancer Colon cancer metastasized to liver Diverticulitis Pneumonia Pulmonary embolism Shortness of breath Surgical History History of colon surgery 09/2022 ostomy placed. Family History Other CAD (coronary artery disease) Cancer Hyperlipidemia Hypertension Lung disease Psychiatric illness Stroke Denies family history of Diabetes Clotting disorder Dementia Chronic kidney disease (CKD) Suicide Anesthesia complication Bleeding disorder Social History Smoking and tobacco status: former smoker Quit status (tobacco): has quit using tobacco Former quit date comment: smoked x 10 years Alcohol intake: never Vitals/I&O/Wt Last Vital Signs Temp 98 F 02/23/23 04:00 Pulse 66 02/23/23 05:06 Resp 16 02/23/23 04:39 BP 102/70 02/23/23 04:00 Pulse Ox 99 02/23/23 04:00 O2 Del Method Room Air 02/22/23 20:34 02/22/23 02/22/23 02/23/23 14:59 22:59 06:59 Intake Total 650 / 650 Balance 650 / 650 Weight last 48 hrs Weight 116 lb Physical Exam Narrative: General : Patient is well developed , no acute distress, oriented x3 Head : Normal cephalic, a-traumatic. Ears : Pinnae and external canal are normal. Hearing is normal. Eyes : PERRLA, Sclera and injection are normal. No conjunctival discharge. Nose : Mucous membranes are without erythema. Throat : buccal mucosa is normal, gums are without significant recession or hypertrophy. Lungs : Equal chest rise bilaterally, no use of accessory muscles, trachea is midline. Cor : Rate and rhythm are normal. Abdomen : Soft, ND, NT, no g/r/m, colostomy pink patent and producing Extremities : No edema, no cyanosis or clubbing, dorsalis pedis pulses are present bilaterally, non-tender to palpation of calves. Upper extremities are normal bilaterally. Back : non-tender to palpation, no CVA tenderness. Neuro : CN II - XII intact, Upper and lower extremities have equal and full strength Data 02/23/23 04:14 02/23/23 04:14 A&P Assessment and plan (1) Pulmonary embolism: (2) Colon cancer metastasized to liver: (3) Bleeding per rectum: (4) Chronic anticoagulation: Plan Her bleeding was only 1 episode and has stopped despite continuing to be fully anticoagulated. No surgical intervention necessary at this time. Sigmoidoscopy would reveal known tumor and surgical intervention would require her to not be anticoagulated for some time. I do not see the need for this right now due to the fact that she has no further bleeding. We will follow. Okay for regular diet. Medical management per hospitalist Coding Level of Care Code 78021 Diagnoses Pulmonary embolism I26.99 Colon cancer metastasized to liver C18.9; C78.7 Bleeding per rectum K62.5 Chronic anticoagulation Z79.01
[2023-02-22 07:01] LABS: Basophils % 0.1 %; Hematocrit 36.4 % (37.0-47.0); Lymphocytes # 2.1 10^3/uL (0.8-4.8); Lymphocytes % 27.6 %; Mean Corpuscular HGB Conc 30.2 g/dL (30.0-36.0); Mean Corpuscular Hemoglobin 27.8 pg (28.0-34.0); Mean Corpuscular Volume 91.9 fl (81-99); Monocytes # 0.9 10^3/uL (0.2-0.9); Monocytes % 11.7 %; Neutrophils % 60.1 %; Nucleated Red Blood Cells % 0 %; Platelet Count 301 10^3/cmm (130-400); Red Blood Count 3.96 10^6/uL (4.1-5.3); Red Cell Distribution Width 15.7 % (12.1-15.1); White Blood Count 7.5 10^3/uL (4.0-10.0)
[2023-02-22 07:15] LABS: Alanine Aminotransferase 7 U/L (0-33); Albumin Level 3.4 g/dL (3.5-5.2); Alkaline Phosphatase 113 U/L (35-105); Aspartate Amino Transferase 13 U/L (0-32); Blood Urea Nitrogen 9 mg/dL (6-20); Calcium 9.1 mg/dL (8.5-10.5); Carbon Dioxide 23 mmol/L (22-29); Chloride 105 mmol/L (98-107); Globulin 3.1 g/dL (1.3-4.6); Glomerular Filtration Rate 105.4 mL/min (90-130); Glucose 116 mg/dL (65-115); Osmolality Calculated 286 mOsm/kg (285-295); Sodium 138 mmol/L (136-145); Total Bilirubin 0.4 mg/dL (0.15-1.2); Total Protein 6.5 g/dL (6.6-8.7)
[2023-02-22 07:17] LABS: Anion Gap 14.9 (5-19); Potassium 4.9 mmol/L (3.5-5.1)
[2023-02-22 07:24] LABS: Partial Thromboplastin Time 188.8 SECONDS (23.9-36.7)
--- NOTE | 2023-02-22 07:41 | PC.PHAR ---
pt states she and her take care of her medication-pt states she knows what medications she takes-pt states she finished her zpac yesterday 02/21/23 rx filled 02/17/23 5d/s-pt has rx written on 02/20/23 for ketorolac 10mg q8h prn pt states she never filled that rx-pt states she got the 5-fu pump put on yesterday 02/21/23 pt states she has to wear it for 48 hours-previously entered med list had pt also got leucovorin and oxaliplatin but was deleted from med rec on 02/17/23-pt states she is still not taking lexapro 10mg daily ext shows last filled 01/13/23 30d/s-
--- NOTE | 2023-02-22 07:42 | PM.CONSULT ---
Providers/Reason For Consult Consulting Physician/Specialty*: Roni Cota MD/pulmonary critical care Reason for Consult*: Worsening PE and patient already on Eliquis Requesting Physician: Alfred Fields Attending Physician: Mylene Yen MD Primary Care Provider: Clarice Perez MD History of Present Illness History of Present Illness Judi Lam is a 53 year old female with history of diverticulosis, diagnosed with metastatic colon cancer with liver mets in August 2022, currently on chemotherapy. In September 2022-patient underwent laparoscopic which was converted to open colostomy creation with excision of pelvic mass, intra-abdominal during lysis and operative findings showed massive dilated colon with cecal perforation, dense adhesions of sigmoid colon to itself as well as the cecum.? Large right adnexal metastatic lesion. Subsequent CT chest 10/06/2022-showed probable developing abscesses and she was scheduled to continue prolonged course of IV antibiotics. She was started on palliative chemotherapy with FOLFOX on 12/21/2022. On 01/04/2023-patient had progressive shortness of breath and underwent CTA chest which showed multiple filling defects in the left lower lobe segmental/subsegmental pulmonary arteries consistent with pulmonary embolism with mild right heart strain. She was started on anticoagulation with Eliquis. 01/20/2023-patient was admitted to hospital again for chest pain to rule out NSTEMI-CT chest abdomen pelvis showed stable occlusive pulmonary emboli, dilated bronchi and prominent peribronchial thickening in left lower lobe consistent with bronchiectasis and bronchitis. There is continued complete collapse of right middle lobe with peribronchial thickening of right middle lobe bronchus and segmental bronchi. Echo during that admission showed EF 60 to 65% with grade 1 diastolic dysfunction. She was treated with broad-spectrum antibiotics for possible postobstructive pneumonia. Sputum cultures grew Serratia marcescens and she was treated with cefepime and tolerated well. Yesterday 02/17/2023-she had a follow-up visit with her oncologist and she was complaining of cough with worsening shortness of breath, off-and-on bleeding per rectum. She was sent to emergency room. She had a CTA which showed worsening thrombus in proximal left lower lobe pulmonary artery, worsened occlusion and expansion of bronchi and left lower lobe. Patient has been compliant with her Eliquis since 01/04/2023. Pulmonary consult requested for worsening pulmonary embolism despite being on anticoagulation and to check whether patient can be admitted or transferred out for any further intervention Patient is hemodynamically stable, saturating 95% on room air, I have recommended to admit her and will manage with subcutaneous Lovenox or IV heparin. Accordingly she was admitted to medical floors with IV heparin. Today morning I have seen patient at bedside She is lying down on her bed not in acute respiratory distress Saturating 99% on room air Tells me that she her chest hurts Other labs and imaging reviewed Review of Systems General: Reports: 10 or more systems reviewed and unremarkable except in HPI and below Medications/Allergies Home Medications Medication Instructions Recorded Confirmed Last Taken Type naloxone 4 mg/actuation nasal spray 4 mg intranasal Q2M PRN Opiate 09/25/22 02/22/23 Unknown History Reversal promethazine 25 mg tablet 25 mg PO Q6H PRN nausea and 11/13/22 02/22/23 Unknown Rx vomiting #20 tabs apixaban 5 mg tablet (Eliquis) 5 mg PO BID@0900,2100 01/18/23 02/22/23 02/14/23 History atorvastatin 40 mg tablet 40 mg PO BEDTIME #30 tabs 01/22/23 02/22/23 02/13/23 Rx lorazepam 1 mg tablet 0.5 - 1 mg PO Q6H PRN Severe 02/04/23 02/22/23 Unknown Rx Nausea #30 tabs morphine 60 mg tablet,extended 60 mg PO Q12H 30 days #60 tabs 02/04/23 02/22/23 02/14/23 05:40 Rx release 5-Fu Pump See Rx Instructions .Route .COMPLEX 02/14/23 02/22/23 02/21/23 History states put on 02/21/ acetaminophen 500 mg tablet 1,000 mg PO Q6H PRN Pain 02/14/23 02/22/23 Unknown History lidocaine-prilocaine 2.5 %-2.5 % See Rx Instructions .Route .COMPLEX 02/14/23 02/22/23 Unknown History topical cream montelukast 10 mg tablet 10 mg PO QAM 02/14/23 02/22/23 02/14/23 History (Singulair) morphine 15 mg immediate release 15 mg PO .EVERY 4-6 HOURS PRN pain 02/21/23 02/22/23 Unknown Rx tablet 30 days #60 tabs azithromycin 250 mg tablet See Rx Instructions .Route .COMPLEX 02/22/23 02/22/23 02/21/23 History finsihed 02/21/23 potassium chloride 20 mEq 20 meq PO QAM 02/22/23 02/22/23 Unknown History tablet,extended release Allergies Allergy/AdvReac Type Severity Reaction Status Date / Time tramadol [From Ultram] Allergy ALGY-Anaphy Verified 02/22/23 07:35 laxis Current Medications Generic Name Dose Route Start Last Admin Trade Name Freq PRN Reason Stop Dose Admin Heparin Sodium (Porcine) 0 unit 02/21/23 22:11 02/21/23 23:20 Heparin 5,000 Unit/Ml Inj 1 Ml IV 2,700 unit PRN PRN Administration Heparin weight-base protocol Protocol Heparin Sodium/Sodium Chloride 25,000 unit in 500 mls @ 0 mls/hr 02/21/23 22:15 02/21/23 23:18 Heparin Drip IV 14.25 unit/kg/hr .Q0M FABIOLA 15 mls/hr Administration Protocol Per Protocol Morphine Sulfate 2 mg 02/21/23 22:11 02/22/23 01:08 Morphine 4 Mg/Ml Sdv 1 Ml IVP 2 mg Q4H PRN Administration SEVERE PAIN Morphine Sulfate 15 mg 02/21/23 22:13 02/22/23 05:39 Morphine Ir 15 Mg Tablet PO 15 mg .EVERY 4-6 HOURS PRN Administration pain Morphine Sulfate 60 mg 02/21/23 22:30 02/21/23 22:34 Morphine Er (12 Hr) 30 Mg Tablet PO 60 mg Q12H FABIOLA Administration Pantoprazole Sodium 40 mg 02/21/23 22:15 02/21/23 22:35 Pantoprazole 40 Mg Sdv IVP 40 mg Q24H FABIOLA Administration PFSH Acute PFSH: Medical History Colon cancer Colon cancer metastasized to liver Diverticulitis Pneumonia Pulmonary embolism Shortness of breath Surgical History History of colon surgery 09/2022 ostomy placed. Family History Other CAD (coronary artery disease) Cancer Hyperlipidemia Hypertension Lung disease Psychiatric illness Stroke Denies family history of Diabetes Clotting disorder Dementia Chronic kidney disease (CKD) Suicide Anesthesia complication Bleeding disorder Social History Smoking and tobacco status: former smoker Quit status (tobacco): has quit using tobacco Former quit date comment: smoked x 10 years Alcohol intake: never Vitals/I&O/Wt Last Vital Signs Temp 97.5 F L 02/22/23 00:00 Pulse 92 02/22/23 00:00 Resp 16 02/22/23 05:39 BP 129/81 02/22/23 00:00 Pulse Ox 99 02/22/23 00:00 O2 Del Method Room Air 02/21/23 21:49 Weight last 48 hrs Weight 116 lb Physical Exam Narrative: General: alert, NAD HEENT: conj clear, EOMI, PERRL, mmm, Neck: supple, no meningismus Heme: no cervical LAP Respiratory: Inspection: No visible deformity of the chest wall Palpation: Trachea is mildly deviated to the right, bilateral symmetric expansion Percussion: Bilateral tympanic percussion note both anterior and posteriorly Auscultation: Bilateral clear to auscultation both anterior and posteriorly, no crackles wheezing or rhonchi Cardiovascular: rrr, nl s1s2, no mrg Abdomen: soft, nt, nd, no r/g, bs+ Extremities: pulses +, no edema, no c/c : no CVA tenderness Skin: intact, no rash MSK: no back or neck pain Neurologic: grossly intact Data 02/22/23 05:57 02/22/23 05:57 Other Labs: Radiology Impressions Chest X-Ray 02/21/23 15:47 IMPRESSION: Patchy left basilar infiltrate suspicious for pneumonia. Chest CTA 02/21/23 17:35 IMPRESSION: 1. Propagation (worsening) of the thrombus in the proximal left lower lobe pulmonary artery. Persistent chronic emboli or thrombus in left lower lobe artery branches with 2. Worsened occlusion and expansion bronchi in the left lower lobe. And endobronchial malignant process cannot be excluded. Follow-up with bronchoscopy should be considered. 3. Increased interlobular septal thickening in the left lower lobe. Lymphangitic spread of malignant tumor is not excluded. 4. Mild centrilobular opacities in the right lower lobe could represent infectious bronchiolitis or mild aspiration. 5. Multiple hepatic nodules are suspicious for worsening metastatic disease. ADDENDUM: 02/21/231913 THIS REPORT CONTAINS FINDINGS THAT MAY BE CRITICAL TO PATIENT CARE. The findings were verbally communicated via telephone conference with Pelon León at 7:13 PM CDT on 02/21/2023. The findings were acknowledged and understood. Venous Duplex 02/21/23 20:06 IMPRESSION: No evidence of deep vein thrombosis. Laboratory Results WBC 7.5 10^3/uL (4.0-10.0) 02/22/23 05:57 RBC 3.96 10^6/uL (4.1-5.3) L 02/22/23 05:57 Hgb 11.0 g/dL (11.5-15.3) L 02/22/23 05:57 Hct 36.4 % (37.0-47.0) L 02/22/23 05:57 MCV 91.9 fl (81-99) 02/22/23 05:57 MCH 27.8 pg (28.0-34.0) L 02/22/23 05:57 MCHC 30.2 g/dL (30.0-36.0) 02/22/23 05:57 RDW 15.7 % (12.1-15.1) H 02/22/23 05:57 Plt Count 301 10^3/cmm (130-400) 02/22/23 05:57 MPV 10.0 fL (7.4-10.4) 02/22/23 05:57 Neut % (Auto) 60.1 % 02/22/23 05:57 Lymph % (Auto) 27.6 % 02/22/23 05:57 [place] % (Auto) 11.7 % 02/22/23 05:57 Eos % (Auto) 0.0 % 02/22/23 05:57 Baso % (Auto) 0.1 % 02/22/23 05:57 Neut # (Auto) 4.50 10^3/uL (1.8-7.7) 02/22/23 05:57 Lymph # (Auto) 2.1 10^3/uL (0.8-4.8) 02/22/23 05:57 [place] # (Auto) 0.9 10^3/uL (0.2-0.9) 02/22/23 05:57 Eos # (Auto) 0.0 10^3/uL (0.0-0.8) 02/22/23 05:57 Baso # (Auto) 0.0 10^3/uL (0.0-0.1) 02/22/23 05:57 Nucleated RBC % (auto) 0 % 02/22/23 05:57 Nucleated RBCs # 0.0 /100WBC 02/22/23 05:57 PT 14.50 SECONDS (12.1-14.9) 02/22/23 13:00 INR 1.10 (0.8-1.2) 02/22/23 13:00 APTT 34.6 SECONDS (23.9-36.7) D 02/22/23 13:00 Fibrinogen 369 mg/dL (174-498) 02/22/23 13:00 Fibrin Degrad Products Not Reportable 02/22/23 13:00 D-Dimer 0.37 ug/mIFEU (0-0.59) 02/22/23 13:00 Sodium 138 mmol/L (136-145) 02/22/23 05:57 Potassium 4.9 mmol/L (3.5-5.1) 02/22/23 05:57 Chloride 105 mmol/L (98-107) 02/22/23 05:57 Carbon Dioxide 23 mmol/L (22-29) 02/22/23 05:57 Anion Gap 14.9 (5-19) 02/22/23 05:57 BUN 9 mg/dL (6-20) 02/22/23 05:57 Creatinine 0.6 mg/dL (0.5-0.9) 02/22/23 05:57 GFR Calculation 105.4 mL/min (90-130) 02/22/23 05:57 Glucose 116 mg/dL (65-115) H 02/22/23 05:57 Calculated Osmolality 286 mOsm/kg (285-295) 02/22/23 05:57 Lactic Acid 3.2 mmol/L (0.5-2.2) H 02/21/23 18:19 Lactic Acid (Sepsis) 2.5 mmol/L (0.5-2.2) H 02/21/23 23:20 Calcium 9.1 mg/dL (8.5-10.5) 02/22/23 05:57 Total Bilirubin 0.4 mg/dL (0.15-1.2) 02/22/23 05:57 AST 13 U/L (0-32) 02/22/23 05:57 ALT 7 U/L (0-33) 02/22/23 05:57 Alkaline Phosphatase 113 U/L (35-105) H 02/22/23 05:57 Troponin T Baseline 6 ng/L (0-10) 02/21/23 16:17 Troponin T 120 Minute 10.26 ng/L (0-10) H 02/21/23 18:19 Delta Troponin T 4.26 ABS# (0-10) 02/21/23 18:19 Troponin T Hi Sens 6Hr 6.00 ng/L (0-10) 02/21/23 23:20 Troponin T Hi Sens 6Hr Delta 0 ng/L (0-12) 02/21/23 23:20 NT-Pro-B Natriuret Pep 116 pg/mL (0-125) 02/21/23 18:19 Total Protein 6.5 g/dL (6.6-8.7) L 02/22/23 05:57 Albumin 3.4 g/dL (3.5-5.2) L 02/22/23 05:57 Globulin 3.1 g/dL (1.3-4.6) 02/22/23 05:57 A&P Assessment and plan (1) Embolism due to malignant neoplasm: Initially diagnosed with PE on CT chest January 04, 2023-since that she has been on Eliquis-patient reports compliance Quite possible that this is Eliquis resistant pulmonary embolism but given her normal D-dimer, negative bilateral venous Doppler, normal coagulation profile, and patient currently being on chemotherapy, CT chest showing interstitial infiltration suggestive of possible lymphatic invasion-suspect tumor emboli However we will put her on IV heparin for couple of days and will eventually switch to Lovenox; eventually she should be discharged on prolonged Lovenox as outpatient (2) Pulmonary embolism: Initially detected January 04, 2023-since that she has been on Eliquis Reports that she has been compliant Quite possible that this is her Eliquis persistent pulmonary embolism or it could be tumor emboli However we will put her on IV heparin for couple of days and will eventually switch to Lovenox; eventually she should be discharged on prolonged Lovenox as outpatient (3) Colon cancer metastasized to liver: Currently receiving chemotherapy (4) Cancer related pain: Patient is on scheduled morphine (5) Postobstructive pneumonia: Currently on Zosyn (6) Endobronchial mass: We will plan for bronchoscopic evaluation tomorrow Recommended to stay n.p.o. 6 hours prior to procedure Hold the heparin 4 hours prior to procedure Consult Attestations Medical Necessity Statement: Currently on IV heparin- scheduled for bronchoscopy Time Spent in Patient Care: Greater than 35 minutes (>than 50% of time spent in counselling and/or direct pt care on unit). Coding Level of Care Code 75503 Diagnoses Embolism due to malignant neoplasm I74.9; C80.1 Pulmonary embolism I26.99 Colon cancer metastasized to liver C18.9; C78.7 Cancer related pain G89.3 Postobstructive pneumonia J18.9 Endobronchial mass R91.8 Time Spent (min) 62
--- NOTE | 2023-02-22 08:11 | PC.NURSE ---
Heparin was shut off by this nurse when critical was called. Tried to call Dr. Yen and texted Critical PTT of [phone]. No message back. She is the physician on my patients chart. Dr. Coffman notified, orders to keep heparin shut off.
--- NOTE | 2023-02-22 09:17 | PC.CHAP ---
Pastoral Care Encounter/Spiritual Assessment Type of Contact [] Declined janitorial maintenance worker visit [] Patient/Family/Request visit [] Outpatient visit [] Follow-up visit [] Physician referral [] Code/Alert [] Routine visit [] Staff referral [] Actively dying [] Patient sleeping [] Family support [] [] Out of room [] Palliative care [] [] Receiving care in room [] Pre-surgical visit [] Trauma [] Long length of stay [] ICU visit [x] Other: precautions Relational/Emotional Strength [] Patient feels connected with others/family/visitors/staff [] Distress [] Loneliness/isolation [] Abandonment Spirituality of Patient [] Person of Margaret [] Attends Scientologist of their Margaret [] Believes in Prayer [] Reads Bible or Latter Day materials [] There are Spiritual issues to be addressed Senior Controls Technician Interventions [] Prayer [] Active listening [] Non-anxious presence [] Spiritual/emotional support [] Crisis/trauma care [] Spiritual counseling [] Bereavement support [] Provided bereavement packet [] Provided Bible/devotional materials [] Provided toy/stuffed animal, coloring book to patient or family member [] Provided Communion [] Anointing/[place] [] Salvation [] Completed spiritual assessment [] Other: Impact on Illness or Injury [] Angry [] Fearful [] Anxious [] Often cries [] Exhaustion [] Unable to work [] Unable to attend episcopalian [] Unable to walk/stand [] Unable to read [] Unable to drive [] Unable to eat/drink [] Unable to sleep [] Unable to be with family [] Patient intubated [] Other: Summary Time spent with patient
--- NOTE | 2023-02-22 10:36 | P.PN_ITS ---
Subjective Subjective: Had detailed discussion with the patient regarding endobronchial lesion, hepatic nodules, concern for metastatic lesions, patient started crying and stated that she would like to go to senior living if that is needed at this point however she does not want her family member to take care of her in order to avoid interruption in the daily life routine She lives with her , most of the time she is alone at nighttime works full-time She has finished 4 cycles of chemo We will touch base with Dr. Cota and Dr. Jacobs Vitals/I&O/Wt Last Vital Signs Temp 97.6 F 02/22/23 08:00 Pulse 70 02/22/23 08:00 Resp 14 02/22/23 08:00 BP 116/82 02/22/23 08:00 Pulse Ox 99 02/22/23 08:00 O2 Del Method Room Air 02/22/23 08:00 Weight last 48 hrs Weight 52.617 kg Physical Exam Narrative: Patient laying supine On room air No audible stridor or wheezing Abdomen soft Colostomy bag in place No signs of edema Looks dehydrated Malnourished No signs of cachexia No active emesis Motion labile S1, S2 Data 02/22/23 05:57 02/22/23 05:57 A&P Assessment and plan (1) Bleeding per rectum: (2) Chronic anticoagulation: (3) Postobstructive pneumonia: (4) Pulmonary embolism: (5) Colon cancer metastasized to liver: (6) Cancer related pain: (7) Hyponatremia: Plan Worsening clot burden Right heart strain Requested echo No active chest pain, she is hemodynamically stable Currently on heparin drip Agree with Lovenox at the time of discharge We will inform Dr. Cota and Dr. Jacobs Colon cancer with hepatic nodule, concern for endobronchial tumor invasion Postobstructive pneumonia Requested Dr. Coat to evaluate the patient as well Patient not requiring oxygen at this point She may benefit from bronchoscopy Bleed per rectum No active bleeding Continue heparin for now Hemoglobin stable we will transfuse if hemoglobin below 8 Hyponatremia improved with IV fluid hydration Low appetite, emotionally labile, signs of depression present, will add citalopram 20 mg General surgery recommendations appreciated Cancer related pain under control at this point Emotional labile Full code No plan for colonoscopy I will let her have diet today: Patient stating that she is on soft diet at home Attestations Medical Necessity Statement*: Continue medical management Diagnoses Bleeding per rectum K62.5 Chronic anticoagulation Z79.01 Postobstructive pneumonia J18.9 Pulmonary embolism I26.99 Colon cancer metastasized to liver C18.9; C78.7 Cancer related pain G89.3 Hyponatremia E87.1
--- NOTE | 2023-02-22 10:45 | USCV_ITS ---
Judi Lam Age: 53 Gender: F : 1970 Exam Date: 02/22/2023 14:14 Ordering Phys: Jocelyn Isidro MD Technologist: Vinayak Watson Exam Location: [facility] [place] Indication: pe BP: 134 / 62 HR: 80 Rhythm: Sinus Technical Quality: Adequate MEASUREMENTS (Male / Female) Normal Values 2D ECHO LV Diastolic Diameter PLAX 3.9 cm 4.2 - 5.9 / 3.9 - 5.3 cm LV Systolic Diameter PLAX 2.1 cm IVS Diastolic Thickness 1.1 cm 0.6 - 1.0 / 0.6 - 0.9 cm IVS Systolic Thickness 1.1 cm LVPW Diastolic Thickness 1.4 cm 0.6 - 1.0 / 0.6 - 0.9 cm LVPW Systolic Thickness 1.3 cm LVOT Diameter 2.0 cm LV Ejection Fraction 2D Teich 79.4 % LV Ejection Fraction MOD 2C 65.0 % LV Ejection Fraction 2C AL 63.4 % LA Diameter 3.0 cm IVC Diameter 1.7 cm M-MODE Aortic Annulus Diameter 3.2 cm LA Ao Ratio MM 0.9 MV E Point Septal Separation 0.8 cm DOPPLER TR Peak Velocity 280.0 cm/s TR Peak Gradient 31.4 mmHg TV Peak E Velocity 73.0 cm/s Right Atrial Pressure 3.0 mmHg Pulmonary Artery Systolic Pressu 34.4 mmHg RV Acceleration Time 0.2 s FINDINGS Left Ventricle Normal left ventricular size and systolic function, EF 61 %. No regional wall motion abnormalities. Mild left ventricular hypertrophy. Right Ventricle Normal right ventricular size and systolic function. Right Atrium The right atrium is normal in size. Left Atrium The left atrium is normal in size. Mitral Valve No gross abnormalities noted Aortic Valve No gross abnormalities noted Tricuspid Valve Not visualized well. No gross abnormalities noted.mild tricuspid valve regurgitation. Pulmonic Valve Pulmonic valve not well visualized. Pericardium Normal pericardium without effusion. Aorta Normal ascending aorta dimension. IVC Inferior vena cava not visualized. CONCLUSIONS Normal left ventricular size and systolic function, EF 61 %. No regional wall motion abnormalities. Mild left ventricular hypertrophy. Normal right ventricular size and systolic function. Mild tricuspid valve regurgitation. No gross valvular abnormalities Possibly normal chamber sizes Technically difficult study because of the poor ultrasonic window. Compared to the study from 01/18/2023, there may not be a significant change, in the 2D findings Dr Stefani Gonzalez MD FACC (Electronically Signed) Final Date: 24 February 2023 16:41 S
[2023-02-22] MEDS: morphine ER (12 HR) 30 mg tablet 60 MG PO ×2 (10:52→22:06)
[2023-02-22] MEDS: piperacillin-tazobactam 3.375 GM in sodium chloride 0.9% (plus) 50 ML IV ×2 (12:41→19:18)
[2023-02-22 13:42] LABS: Fibrinogen 369 mg/dL (174-498); Partial Thromboplastin Time 34.6 SECONDS (23.9-36.7)
[2023-02-22 13:45] LABS: D Dimer 0.37 ug/mIFEU (0-0.59)
[2023-02-22] MEDS: ALPRAZolam 0.5 mg Tablet PO (16:29)
[2023-02-22] MEDS: pantoprazole 40 mg SDV IVP (22:07)
[2023-02-22 22:26] LABS: Partial Thromboplastin Time 60.7 SECONDS (23.9-36.7)
--- NOTE | 2023-02-22 23:58 | PC.NURSE ---
guided peripheral iv to left ac discontinued d/t occlusion, cath intact. chemo infusing via subclavian port, heparin infusing to right ac. Patient states i do not want the iv replaced tonight, i will just refuse the abx until my chemo is disconnected in the morning Charge nurse notified.
[2023-02-23] VITALS (24 sets, daily range): BP systolic 95–147; BP diastolic 57–83; PULSE 64–94; RESP 16–20; TEMP 36.1–36.6; O2SAT 92–100
[2023-02-23] MEDS: ALPRAZolam 0.5 mg Tablet PO ×2 (00:29→19:21)
[2023-02-23 04:22] LABS: Basophils % 0.7 %; Eosinophils # 0.1 10^3/uL (0.0-0.8); Eosinophils % 2.3 %; Hematocrit 30.7 % (37.0-47.0); Hemoglobin 9.5 g/dL (11.5-15.3); Lymphocytes # 2.6 10^3/uL (0.8-4.8); Lymphocytes % 45.9 %; Mean Corpuscular HGB Conc 30.9 g/dL (30.0-36.0); Mean Corpuscular Hemoglobin 28.4 pg (28.0-34.0); Mean Corpuscular Volume 91.9 fl (81-99); Mean Platelet Volume 9.4 fL (7.4-10.4); Monocytes # 0.5 10^3/uL (0.2-0.9); Monocytes % 9.2 %; Neutrophils % 41.7 %; Nucleated Red Blood Cells % 0 %; Platelet Count 240 10^3/cmm (130-400); Red Blood Count 3.34 10^6/uL (4.1-5.3); Red Cell Distribution Width 15.9 % (12.1-15.1); White Blood Count 5.8 10^3/uL (4.0-10.0)
[2023-02-23] MEDS: morphine IR 15 mg Tablet PO ×2 (04:39→19:15)
[2023-02-23 04:42] LABS: Alanine Aminotransferase 8 U/L (0-33); Albumin Level 2.8 g/dL (3.5-5.2); Alkaline Phosphatase 88 U/L (35-105); Anion Gap 13.1 (5-19); Aspartate Amino Transferase 15 U/L (0-32); Blood Urea Nitrogen 9 mg/dL (6-20); Calcium 8.6 mg/dL (8.5-10.5); Carbon Dioxide 23 mmol/L (22-29); Chloride 104 mmol/L (98-107); Globulin 2.5 g/dL (1.3-4.6); Glomerular Filtration Rate 130.1 mL/min (90-130); Glucose 91 mg/dL (65-115); Osmolality Calculated 280 mOsm/kg (285-295); Partial Thromboplastin Time 68.5 SECONDS (23.9-36.7); Potassium 4.1 mmol/L (3.5-5.1); Sodium 136 mmol/L (136-145); Total Bilirubin 0.2 mg/dL (0.15-1.2); Total Protein 5.3 g/dL (6.6-8.7)
[2023-02-23] MEDS: escitalopram 10 mg Tablet 20 MG PO (08:50)
[2023-02-23] MEDS: morphine ER (12 HR) 30 mg tablet 60 MG PO ×2 (10:40→22:11)
[2023-02-23] MEDS: piperacillin-tazobactam 3.375 GM in sodium chloride 0.9% (plus) 50 ML IV ×2 (10:41→20:14)
--- NOTE | 2023-02-23 10:56 | PM.PN ---
Subjective Subjective: Heparin was stopped at 6 AM Patient is n.p.o. She is endorsing feeling better Rested well last night She has not emptied her colostomy bag since afternoon yesterday Currently on room air No fever No signs of DVT on venous Doppler DIC panel negative Vitals/I&O/Wt Last Vital Signs Temp 97.2 F L 02/23/23 08:00 Pulse 74 02/23/23 08:00 Resp 16 02/23/23 10:40 BP 106/68 02/23/23 08:00 Pulse Ox 98 02/23/23 10:40 O2 Del Method Room Air 02/23/23 08:00 02/22/23 02/23/23 02/23/23 22:59 06:59 14:59 Intake Total 650 / 650 50 / 700 Balance 650 / 650 50 / 700 Weight last 48 hrs Weight 52.617 kg Physical Exam Narrative: Currently on room air Awake and alert Euvolemic Colostomy bag in place with some stool contents Abdomen soft Awake and alert GCS 15 Nonfocal neuro exam Pleasant and cooperative Mood seems to be stable today S1, S2 Data 02/23/23 04:14 02/23/23 04:14 A&P Assessment and plan (1) Embolism due to malignant neoplasm: (2) Endobronchial mass: (3) Bleeding per rectum: (4) Chronic anticoagulation: (5) Postobstructive pneumonia: (6) Colon cancer metastasized to liver: (7) Hyponatremia: (8) Cancer related pain: Plan Hematochezia: No recurrence Hemoglobin stable DIC panel negative Protein C&S requested Worsening clot burden versus tumor related migration Hepatic metastasis D-dimer unremarkable DIC negative Dr. Cota to do bronchoscopy today for further evaluation Currently on room air Heparin drip on hold since 6 AM Plan to discharge her on Lovenox at discharge Hyponatremia improved with IV fluid hydration Emotionally labile: Doing slightly better today with use of antidepressants and anxiolytics No plan for colonoscopy at this point Pain is well managed N.p.o., she can have mechanical soft diet afterwards, she is on mechanical soft diet at home Full code Plan to discharge her tomorrow if remains stable, follow outpatient with pulmonology and oncology Attestations Medical Necessity Statement*: Continue medical management Diagnoses Embolism due to malignant neoplasm I74.9; C80.1 Endobronchial mass R91.8 Bleeding per rectum K62.5 Chronic anticoagulation Z79.01 Postobstructive pneumonia J18.9 Colon cancer metastasized to liver C18.9; C78.7 Hyponatremia E87.1 Cancer related pain G89.3
--- NOTE | 2023-02-23 12:09 | ANES.PREANE2 ---
Pre-Anesthetic Assessment Height/Weight: Height 1.63 m Weight 52.617 kg Temp Pulse Resp BP Pulse Ox O2 Del Method 97.6 F 68 18 112/64 99 Room Air 02/23/23 11:40 02/23/23 11:40 02/23/23 11:40 02/23/23 11:40 02/23/23 11:40 02/23/23 11:40 Operation Date: 02/23/23 11:25 Proposed Procedures p Bronchoscopy(Not Applicable) - Roni Cota MD s Ebus(Not Applicable) - Roni Cota MD Familial anesthetic complications: None Was Beta Carlo taken within 24 hours: N/A Was Clonidine taken within 24 hours: N/A Last intake: > 8hrs Social No alcohol and No tobacco Exam alert, oriented x 3, clear to auscultation bilaterally and regular rate & rhythm Airway Mallampati: Class I Dentition: chipped Pulmonary Shortness of Breath endobronchial mass Metabolic Hyperlipidemia Anesthetic Plan ASA status: 4 Anesthesia: General Risk of > 500 ml blood loss (7ml/kg in children): No Medications/Allergies Home Medications Medication Instructions Recorded Confirmed Last Taken Type naloxone 4 mg/actuation nasal spray 4 mg intranasal Q2M PRN Opiate 09/25/22 02/22/23 Unknown History Reversal promethazine 25 mg tablet 25 mg PO Q6H PRN nausea and 11/13/22 02/22/23 Unknown Rx vomiting #20 tabs apixaban 5 mg tablet (Eliquis) 5 mg PO BID@0900,2100 01/18/23 02/22/23 02/14/23 History atorvastatin 40 mg tablet 40 mg PO BEDTIME #30 tabs 01/22/23 02/22/23 02/13/23 Rx lorazepam 1 mg tablet 0.5 - 1 mg PO Q6H PRN Severe 02/04/23 02/22/23 Unknown Rx Nausea #30 tabs morphine 60 mg tablet,extended 60 mg PO Q12H 30 days #60 tabs 02/04/23 02/22/23 02/14/23 05:40 Rx release 5-Fu Pump See Rx Instructions .Route .COMPLEX 02/14/23 02/22/23 02/21/23 History states put on 02/21/ acetaminophen 500 mg tablet 1,000 mg PO Q6H PRN Pain 02/14/23 02/22/23 Unknown History lidocaine-prilocaine 2.5 %-2.5 % See Rx Instructions .Route .COMPLEX 02/14/23 02/22/23 Unknown History topical cream montelukast 10 mg tablet 10 mg PO QAM 02/14/23 02/22/23 02/14/23 History (Singulair) morphine 15 mg immediate release 15 mg PO .EVERY 4-6 HOURS PRN pain 02/21/23 02/22/23 Unknown Rx tablet 30 days #60 tabs azithromycin 250 mg tablet See Rx Instructions .Route .COMPLEX 02/22/23 02/22/23 02/21/23 History finsihed 02/21/23 potassium chloride 20 mEq 20 meq PO QAM 02/22/23 02/22/23 Unknown History tablet,extended release Allergies Allergy/AdvReac Type Severity Reaction Status Date / Time tramadol [From Ultram] Allergy ALGY-Anaphy Verified 02/22/23 07:35 laxis Current Medications Generic Name Dose Route Start Last Admin Trade Name Alirioq PRN Reason Stop Dose Admin Alprazolam 0.5 mg 02/22/23 14:29 02/23/23 00:29 Alprazolam 0.5 Mg Tablet PO 0.5 mg BID PRN Administration ANXIETY Escitalopram Oxalate 20 mg 02/23/23 09:00 02/23/23 08:50 Escitalopram 10 Mg Tablet PO 20 mg DAILY FABIOLA Administration Heparin Sodium (Porcine) 0 unit 02/21/23 22:11 02/21/23 23:20 Heparin 5,000 Unit/Ml Inj 1 Ml IV 2,700 unit PRN PRN Administration Heparin weight-base protocol Protocol Piperacillin Sod/Tazobactam 50 mls @ 12.5 mls/hr 02/22/23 11:30 02/23/23 10:41 Sod 3.375 gm/ Sodium Chloride IV 12.5 mls/hr Q8H FABIOLA Administration Protocol As Directed Morphine Sulfate 2 mg 02/21/23 22:11 02/22/23 19:20 Morphine 4 Mg/Ml Sdv 1 Ml IVP 2 mg Q4H PRN Administration SEVERE PAIN Morphine Sulfate 15 mg 02/21/23 22:13 02/23/23 04:39 Morphine Ir 15 Mg Tablet PO 15 mg .EVERY 4-6 HOURS PRN Administration pain Morphine Sulfate 60 mg 02/21/23 22:30 02/23/23 10:40 Morphine Er (12 Hr) 30 Mg Tablet PO 60 mg Q12H FABIOLA Administration Pantoprazole Sodium 40 mg 02/21/23 22:15 02/22/23 22:07 Pantoprazole 40 Mg Sdv IVP 40 mg Q24H FABIOLA Administration PFSH Anesthesia Medical History (Updated 02/23/23 @ 10:58 by Jocelyn Isidro MD) Colon cancer Colon cancer metastasized to liver Diverticulitis Pneumonia Port-A-Cath in place Left chest wall Pulmonary embolism Shortness of breath Surgical History History of colon surgery 09/2022 ostomy placed. Family History Other CAD (coronary artery disease) Cancer Hyperlipidemia Hypertension Lung disease Psychiatric illness Stroke Denies family history of Diabetes Clotting disorder Dementia Chronic kidney disease (CKD) Suicide Anesthesia complication Bleeding disorder Social History Smoking and tobacco status: former smoker Quit status (tobacco): has quit using tobacco Former quit date comment: smoked x 10 years Alcohol intake: never Data Anesthesia 02/23/23 04:14 02/23/23 04:14 Short CBC 02/21/23 02/22/23 02/23/23 Range/Units 18:19 05:57 04:14 WBC 2.9 L 7.5 5.8 (4.0-10.0) 10^3/uL Hgb 12.7 11.0 L 9.5 L (11.5-15.3) g/dL Hct 41.0 36.4 L 30.7 L (37.0-47.0) % MCV 90.1 91.9 91.9 (81-99) fl Plt Count 386 301 240 (130-400) 10^3/cmm Neut % (Auto) 75.0 60.1 41.7 % Neut # (Auto) 2.14 4.50 2.40 (1.8-7.7) 10^3/uL BMP 02/21/23 02/22/23 02/23/23 16:17 05:57 04:14 Sodium 135 L 138 136 Potassium 4.0 4.9 4.1 Chloride 99 105 104 Carbon Dioxide 18 L 23 BUN 8 9 9 Creatinine 0.7 0.6 0.5 Glucose 134 H 116 H 91 Calcium 9.8 9.1 8.6 Cardiac Enzymes 02/21/23 02/21/23 02/21/23 Range/Units 16:17 18:19 18:19 Troponin T Baseline 6 (0-10) ng/L Troponin T 120 Minute 10.26 H (0-10) ng/L Delta Troponin T 4.26 (0-10) ABS# Troponin T Hi Sens 6Hr Troponin T Hi Sens 6Hr Delta NT-Pro-B Natriuret Pep 116 (0-125) pg/mL 02/21/23 02/21/23 Range/Units 22:45 23:20 Troponin T Baseline (0-10) ng/L Troponin T 120 Minute (0-10) ng/L Delta Troponin T (0-10) ABS# Troponin T Hi Sens 6Hr Cancelled 6.00 Troponin T Hi Sens 6Hr Delta Cancelled 0 NT-Pro-B Natriuret Pep (0-125) pg/mL Liver Function 02/21/23 02/22/23 02/23/23 Range/Units 16:17 05:57 04:14 Total Bilirubin 0.3 0.4 0.2 (0.15-1.2) mg/dL AST 18 13 15 (0-32) U/L ALT 8 7 8 (0-33) U/L Alkaline Phosphatase 126 H 113 H 88 (35-105) U/L Albumin 3.6 3.4 L 2.8 L (3.5-5.2) g/dL Coags 02/21/23 02/22/23 02/22/23 18:19 05:57 13:00 PT 14.50 INR 1.10 APTT 188.8 H* 34.6 D Fibrinogen 369 Fibrin Degrad Products Not Reportable D-Dimer 0.34 0.37 02/22/23 02/23/23 22:03 04:14 PT INR APTT 60.7 H D 68.5 H Fibrinogen Fibrin Degrad Products D-Dimer Cardiac Studies: Echocardiogram 01/18/23
--- NOTE | 2023-02-23 12:58 | ECG_ITS ---
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 Measurements Intervals [place] Rate: 66 P: 52 IA: 149 QRS: 38 QRSD: 77 T: 30 QT: 430 QTc: 452 Interpretive Statements SINUS RHYTHM Compared to ECG 02/21/2023 21:31:39 No significant changes Electronically Signed On 02-23-2023 16:59:58 CDT by Stefani Gonzalez M.D. [id number]
--- NOTE | 2023-02-23 13:00 | PC.NURSE ---
Pt reporting 8/10 chest pain with coughing fit in preop. Anesthesia at bedside. Ordered STAT EKG.
--- NOTE | 2023-02-23 13:01 | W.PM.OPSUD ---
Surgery/Procedure H&P Update DATE OF PROCEDURE: February 23, 2023 DATE H&P PERFORMED: 01/11/23 H&P UPDATE INFORMATION: I have reviewed H&P completed within last 30 days, I have examined patient prior to procedure, No changes to prior documentation and Changes to prior documentation as noted here CHANGES TO PREVIOUS DOCUMENTATION: none PREOP DIAGNOSIS: Endobronchial lesion -Suspected malignancy PRIMARY INDICATION FOR PROCEDURE: Patient with metastatic colon cancer on chemotherapy-presented with worsening shortness of breath-CTA showed worsening PE as well as worsened occlusion and expansion bronchi and left lower lobe - suspicious for endobronchial malignant process PLANNED PROCEDURE: Operation Date: 02/23/23 11:25 Proposed Procedures p Bronchoscopy(Not Applicable) - Roni Cota MD s Ebus(Not Applicable) - Roni Cota MD
--- NOTE | 2023-02-23 13:05 | P.PN_ITS ---
Subjective Subjective: Patient seen at bedside-she reported her breathing is somewhat better Heparin was held today morning in anticipation for bronchoscopy Otherwise no new complaints Medications: Reviewed: Yes Vitals/I&O/Wt Last Vital Signs Temp 97.3 F L 02/23/23 12:43 Pulse 80 02/23/23 12:43 Resp 16 02/23/23 12:43 BP 128/80 02/23/23 12:43 Pulse Ox 100 02/23/23 12:43 O2 Del Method Room Air 02/23/23 12:43 02/22/23 02/23/23 02/23/23 22:59 06:59 14:59 Intake Total 650 / 650 50 / 700 50 / 50 Balance 650 / 650 50 / 700 50 / 50 Weight last 48 hrs Weight 116 lb Physical Exam Narrative: General: alert, NAD HEENT: conj clear, EOMI, PERRL, mmm, Neck: supple, no meningismus Heme: no cervical LAP Respiratory: Inspection: No visible deformity of the chest wall Palpation: Trachea is mildly deviated to the right, bilateral symmetric expansi on Percussion: Bilateral tympanic percussion note both anterior and posteriorly Auscultation: Bilateral clear to auscultation both anterior and posteriorly, no crackles wheezing or rhonchi Cardiovascular: rrr, nl s1s2, no mrg Abdomen: soft, nt, nd, no r/g, bs+ Extremities: pulses +, no edema, no c/c : no CVA tenderness Skin: intact, no rash MSK: no back or neck pain Neurologic: grossly intact Data 02/23/23 04:14 02/23/23 04:14 Other Labs: Radiology Impressions Chest X-Ray 02/21/23 15:47 IMPRESSION: Patchy left basilar infiltrate suspicious for pneumonia. Chest CTA 02/21/23 17:35 IMPRESSION: 1. Propagation (worsening) of the thrombus in the proximal left lower lobe pulmonary artery. Persistent chronic emboli or thrombus in left lower lobe artery branches with 2. Worsened occlusion and expansion bronchi in the left lower lobe. And endobronchial malignant process cannot be excluded. Follow-up with bronchoscopy should be considered. 3. Increased interlobular septal thickening in the left lower lobe. Lymphangitic spread of malignant tumor is not excluded. 4. Mild centrilobular opacities in the right lower lobe could represent infectious bronchiolitis or mild aspiration. 5. Multiple hepatic nodules are suspicious for worsening metastatic disease. ADDENDUM: 02/21/231913 THIS REPORT CONTAINS FINDINGS THAT MAY BE CRITICAL TO PATIENT CARE. The findings were verbally communicated via telephone conference with Pelon León at 7:13 PM CDT on 02/21/2023. The findings were acknowledged and understood. Venous Duplex 02/21/23 20:06 IMPRESSION: No evidence of deep vein thrombosis. Laboratory Results WBC 5.8 10^3/uL (4.0-10.0) 02/23/23 04:14 RBC 3.34 10^6/uL (4.1-5.3) L 02/23/23 04:14 Hgb 9.5 g/dL (11.5-15.3) L 02/23/23 04:14 Hct 30.7 % (37.0-47.0) L 02/23/23 04:14 MCV 91.9 fl (81-99) 02/23/23 04:14 MCH 28.4 pg (28.0-34.0) 02/23/23 04:14 MCHC 30.9 g/dL (30.0-36.0) 02/23/23 04:14 RDW 15.9 % (12.1-15.1) H 02/23/23 04:14 Plt Count 240 10^3/cmm (130-400) 02/23/23 04:14 MPV 9.4 fL (7.4-10.4) 02/23/23 04:14 Neut % (Auto) 41.7 % 02/23/23 04:14 Lymph % (Auto) 45.9 % 02/23/23 04:14 [place] % (Auto) 9.2 % 02/23/23 04:14 Eos % (Auto) 2.3 % 02/23/23 04:14 Baso % (Auto) 0.7 % 02/23/23 04:14 Neut # (Auto) 2.40 10^3/uL (1.8-7.7) 02/23/23 04:14 Lymph # (Auto) 2.6 10^3/uL (0.8-4.8) 02/23/23 04:14 [place] # (Auto) 0.5 10^3/uL (0.2-0.9) 02/23/23 04:14 Eos # (Auto) 0.1 10^3/uL (0.0-0.8) 02/23/23 04:14 Baso # (Auto) 0.0 10^3/uL (0.0-0.1) 02/23/23 04:14 Nucleated RBC % (auto) 0 % 02/23/23 04:14 Nucleated RBCs # 0.0 /100WBC 02/23/23 04:14 PT 14.50 SECONDS (12.1-14.9) 02/22/23 13:00 INR 1.10 (0.8-1.2) 02/22/23 13:00 APTT 68.5 SECONDS (23.9-36.7) H 02/23/23 04:14 Fibrinogen 369 mg/dL (174-498) 02/22/23 13:00 Fibrin Degrad Products Not Reportable 02/22/23 13:00 D-Dimer 0.37 ug/mIFEU (0-0.59) 02/22/23 13:00 Sodium 136 mmol/L (136-145) 02/23/23 04:14 Potassium 4.1 mmol/L (3.5-5.1) 02/23/23 04:14 Chloride 104 mmol/L (98-107) 02/23/23 04:14 Carbon Dioxide 23 mmol/L (22-29) 02/23/23 04:14 Anion Gap 13.1 (5-19) 02/23/23 04:14 BUN 9 mg/dL (6-20) 02/23/23 04:14 Creatinine 0.5 mg/dL (0.5-0.9) 02/23/23 04:14 GFR Calculation 130.1 mL/min (90-130) H 02/23/23 04:14 Glucose 91 mg/dL (65-115) 02/23/23 04:14 Calculated Osmolality 280 mOsm/kg (285-295) L 02/23/23 04:14 Lactic Acid 3.2 mmol/L (0.5-2.2) H 02/21/23 18:19 Lactic Acid (Sepsis) 2.5 mmol/L (0.5-2.2) H 02/21/23 23:20 Calcium 8.6 mg/dL (8.5-10.5) 02/23/23 04:14 Total Bilirubin 0.2 mg/dL (0.15-1.2) 02/23/23 04:14 AST 15 U/L (0-32) 02/23/23 04:14 ALT 8 U/L (0-33) 02/23/23 04:14 Alkaline Phosphatase 88 U/L (35-105) 02/23/23 04:14 Troponin T Baseline 6 ng/L (0-10) 02/21/23 16:17 Troponin T 120 Minute 10.26 ng/L (0-10) H 02/21/23 18:19 Delta Troponin T 4.26 ABS# (0-10) 02/21/23 18:19 Troponin T Hi Sens 6Hr 6.00 ng/L (0-10) 02/21/23 23:20 Troponin T Hi Sens 6Hr Delta 0 ng/L (0-12) 02/21/23 23:20 NT-Pro-B Natriuret Pep 116 pg/mL (0-125) 02/21/23 18:19 Total Protein 5.3 g/dL (6.6-8.7) L 02/23/23 04:14 Albumin 2.8 g/dL (3.5-5.2) L 02/23/23 04:14 Globulin 2.5 g/dL (1.3-4.6) 02/23/23 04:14 A&P Assessment and plan (1) Pulmonary embolism: Initially detected January 04, 2023-since that she has been on Eliquis Reports that she has been compliant Quite possible that this is her Eliquis persistent pulmonary embolism or it could be tumor emboli However we will put her on IV heparin for couple of days and will eventually switch to Lovenox; eventually she should be discharged on prolonged Lovenox as outpatient (2) 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 However we will put her on IV heparin for couple of days and will eventually switch to Lovenox; eventually she should be discharged on prolonged Lovenox as outpatient (3) Colon cancer metastasized to liver: Currently receiving chemotherapy (4) Cancer related pain: Patient is on scheduled morphine (5) Postobstructive pneumonia: Currently on Zosyn (6) Endobronchial mass: She will undergo bronchoscopic evaluation for left lower lobe obstruction Recommended to stay n.p.o. 6 hours prior to procedure Hold the heparin 4 hours prior to procedure Attestations Medical Necessity Statement*: Scheduled for bronchoscopy today Time Spent in Patient Care: Greater than 35 minutes (>than 50% of time spent in counselling and/or direct pt care on unit) . Coding Level of Care Code 97078 Diagnoses Pulmonary embolism I26.99 Embolism due to malignant neoplasm I74.9; C80.1 Colon cancer metastasized to liver C18.9; C78.7 Cancer related pain G89.3 Postobstructive pneumonia J18.9 Endobronchial mass R91.8 Time Spent (min) 46
[2023-02-23] MEDS: sodium chloride 0.9% 1,000 ML 30 ML IV (13:08)
[2023-02-23] MEDS: lidocaine 1% INJ 10 mL (per mL) XX (13:19)
--- NOTE | 2023-02-23 14:49 | P.OP_ITS ---
Operative Report Date of procedure: February 23, 2023 Pre-op diagnosis: Preop Diagnosis bronchial obstruction - suspect malignancy vs thick secretions Post-op diagnosis: thick mucus secretions Surgeon: Roni Cota MD [facility] Brief History: 53-year-old female Ms. Judi Lam recently diagnosed with metastatic colon cancer with hepatic mets, on chemotherapy-diagnosed with PE December 2022 on Eliquis- admitted to hospital this time for worsening PE burden despite being on anticoagulation. Admission CTA also showed obstruction of lower lobe bronchi suspicious for endobronchial tumor. Patient is scheduled for bronchoscopic evaluation of her airways today. She is receiving IV heparin which was held now for more than 4 hours Procedure: Procedure : 37699 Dx Bronchoscope w/Washings or airway inspection 26647 Dx Bronchoscope w/BAL 54808 Dx Bronchoscopy w/Bronchial or Endobronchial biopsy(s), single or multiple sites 16515 Bronchoscopy w/ therapeutic aspiration of the tracheobronchial tree (clearance of airway secretions, removal of mucus plugs) Pre-Operative Diagnosis: Endobronchial obstruction in left lower lobe airways- suspicious for malignancy given underlying history of metastatic colon cancer Post-Operative Diagnosis: Thick mucous plugging Indication: CT chest evidence of endobronchial obstruction of left lower lobe airways Consent: Consents were obtained from patient and placed in the chart Pre-procedure Evaluation: Patient was evaluated clinically and ancillary testing reviewed. The risk of having active MTB infection is very low in my clinical judgement. ASA: 4 Malampati score: unable to evaluate due to presence of endotracheal tube Time out: Performed by the procedure team and nursing staff. Vent support maintained on Fio2 100. Anesthesia: As per anesthesia team Local anesthesia: The alice in the right and left mainstem bronchi were anesthetized with 1% lidocaine, 6 mL. Summary of Significant Findings: -Bronchoscope passed through ET tube used for initial inspection (16805) and airway clearance. The scope was advanced through the ET tube. The lower trachea mucosa appeared normal, no endotracheal lesion was seen. The alice was sharp. The alice, the right and left mainstem bronchi are anesthetized with 1% lidocaine. In a systematic manner bilateral bronchial tree was then examined. There were significant thick mucus secretions in bilateral mainstem bronchi. All the secretions were suctioned right away (29725). The bronchoscope was advanced into the left mainstem bronchus. The mucosa appeared normal with no endobronchial lesions. The left upper lobe, lingula and left lower lobe bronchi were examined up to the third subsegmental level and no abnormalities were identified. Mucosa appeared normal for most part except there is a raised lesion in left lower lobe subsegment. There were significant thick mucus secretions plugging most of the lower lobe airways-which were suctioned right away. (86899) The bronchoscope was then introduced into the right mainstem bronchus. The right upper lobe, right middle lobe and right lower lobe bronchi were examined up to the third subsegmental level and no abnormalities were identified. The mucosa appeared normal with no endobronchial lesions, active bleeding. There were thick mucus secretions again noted in several subsegments of right side lung which were suctioned right away. After initial inspection and clearing the airways - forceps was used to biopsy endobronchial lesion from left lower lobe (77957); atleast 4-5 pieces were placed in formalin and sent for Histopathology review. BAL obtained from left lower lobe. The bronchoscope was wedged against the opening of medial segment of left lower lobe, 30 cc normal saline instilled, aspirated with return of 15 cc mucus containing fluid slightly mixed with blood. (30865). The bronchoscope was then removed and the procedure terminated. Estimated Blood Loss: 2 - 5 ml Specimens: 1. Endobronchial biopsies of Left lower lobe lesion (29582) 2. Bronchoalveolar lavage (26626) from left lower lobe sent for cultures, cell count, cytology Complications:None; patient tolerated the procedure well. Disposition: Patient extubated uneventfully and will be transferred back to [facility] Surgeon: Roni Cota MD, [facility] Pulmonary critical Care Medicine [facility]
[2023-02-23 16:24] LABS: Apprearance, Bronch Wash Cloudy (CLEAR); Color, Bronc Wash Slight Pink; Cyto Order Verification No Order
[2023-02-23 17:34] LABS: Other Cells, Bronch Wash 0 %; PATH Referral Yes
[2023-02-23 17:36] LABS: Total Cells Counted Bronch 200
[2023-02-23] MEDS: morphine 4 mg/mL SDV 1 mL 2 MG IVP (20:30)
[2023-02-23] MEDS: enoxaparin 60 mg/0.6 mL Syringe 50 MG SUBCUT (20:59)
[2023-02-23] MEDS: pantoprazole 40 mg SDV IVP (22:19)
[2023-02-24] VITALS (11 sets, daily range): BP systolic 114–126; BP diastolic 73–77; PULSE 64–71; RESP 16–18; TEMP 36.1–37; O2SAT 97–99
[2023-02-24] MEDS: piperacillin-tazobactam 3.375 GM in sodium chloride 0.9% (plus) 50 ML IV ×2 (04:05→12:06)
[2023-02-24] MEDS: morphine 4 mg/mL SDV 1 mL 2 MG IVP ×3 (04:22→16:11)
[2023-02-24] MEDS: promethazine 25 mg Tablet PO (04:26)
[2023-02-24 06:25] LABS: Basophils % 0.2 %; Hemoglobin 9.5 g/dL (11.5-15.3); Lymphocytes # 1.3 10^3/uL (0.8-4.8); Lymphocytes % 27.3 %; Mean Corpuscular HGB Conc 30.6 g/dL (30.0-36.0); Mean Corpuscular Hemoglobin 28.1 pg (28.0-34.0); Mean Corpuscular Volume 91.7 fl (81-99); Mean Platelet Volume 9.3 fL (7.4-10.4); Monocytes # 0.2 10^3/uL (0.2-0.9); Monocytes % 3.4 %; Neutrophils % 68.9 %; Nucleated Red Blood Cells % 0 %; Platelet Count 239 10^3/cmm (130-400); Red Blood Count 3.38 10^6/uL (4.1-5.3); Red Cell Distribution Width 15.5 % (12.1-15.1); White Blood Count 4.7 10^3/uL (4.0-10.0)
[2023-02-24 06:49] LABS: Magnesium 1.8 mg/dL (1.7-2.3)
[2023-02-24 06:50] LABS: Alanine Aminotransferase 12 U/L (0-33); Alkaline Phosphatase 90 U/L (35-105); Anion Gap 11.4 (5-19); Aspartate Amino Transferase 20 U/L (0-32); Blood Urea Nitrogen 8 mg/dL (6-20); Calcium 8.6 mg/dL (8.5-10.5); Carbon Dioxide 23 mmol/L (22-29); Chloride 105 mmol/L (98-107); Globulin 2.5 g/dL (1.3-4.6); Glomerular Filtration Rate 130.1 mL/min (90-130); Glucose 108 mg/dL (65-115); Osmolality Calculated 279 mOsm/kg (285-295); Potassium 4.4 mmol/L (3.5-5.1); Sodium 135 mmol/L (136-145); Total Bilirubin 0.3 mg/dL (0.15-1.2); Total Protein 5.5 g/dL (6.6-8.7)
--- NOTE | 2023-02-24 08:10 | ECG_ITS ---
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 Measurements Intervals [place] Rate: 65 P: 51 IA: 150 QRS: 41 QRSD: 82 T: 32 QT: 421 QTc: 438 Interpretive Statements SINUS RHYTHM Compared to ECG 02/23/2023 12:58:06 No significant changes Electronically Signed On 02-24-2023 14:51:14 CDT by Ajith Barger M.D. [id number]
--- NOTE | 2023-02-24 08:12 | XR_ITS ---
WS: [id number] XR chest 1V portable [id number] REASON FOR EXAM: chest pain FINDINGS: Equivocal reticular opacities in the right lower lung. Definite reticular lung opacities in the left lower lung. These opacities are more prominent than on the previous examinations 02/12/2023 through 02/21/2023. No other interval change or new finding. XR/XR chest 1V portable [id number] IMPRESSION: No definite abnormality in the right lower lung. Definite opacities in the left lower lung consistent with pneumonitis. This abnormality appears to have progr essed since 02/12/2023.
[2023-02-24] MEDS: ALPRAZolam 0.5 mg Tablet PO ×2 (08:17→17:33)
[2023-02-24] MEDS: enoxaparin 60 mg/0.6 mL Syringe 50 MG SUBCUT (08:17)
[2023-02-24] MEDS: morphine IR 15 mg Tablet PO (08:17)
[2023-02-24] MEDS: escitalopram 10 mg Tablet 20 MG PO (08:19)
[2023-02-24 08:38] LABS: Troponin T (5th) Once 6 ng/L (0-10)
--- NOTE | 2023-02-24 09:28 | P.DS_ITS ---
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 She receievd prolonged course of abx between aug-october 2022 for multiple intraabdominal abscess from cecal perfortaion.? She is currently on palliative chemotherapy with FOLFOX? started on December 21, 2022. Disease course complicated by development of PE on January 04, 2023 for which she was on Eliquis She was admitted for management of blood in stool, hematochezia,, she was diagnosed with increased clot burden with bilateral PE, right heart strain, however her D-dimer was not remarkable, she was started on IV heparin, Dr. Coffman did not recommend any scopes because of pulmonary pathologies, she remained hemodynamically stable with stable hemoglobin, no recurrence of hematochezia during hospitalization. Dr. Cota was consulted for bronchoscopy, lot of mucus clogging was identified left lower lobe which was suctioned and sent for the cultures small lesions were biopsied and sent to the pathologist, next day patient was complaining of chest pain, EKG showing sinus rhythm no is chemic changes, troponin 6, her pain improved with use of anxiolytics and morphine, patient has failed Eliquis, at the time of discharge she will get Lovenox therapeutic regimen She will follow-up with Dr. Jacobs for the report Dr. Cota has notified Dr. Jacobs Patient is very emotionally labile we discussed possibility of metastatic lesions with hepatic nodules and endobronchial lesion She would like to discuss her options with Dr. Jacobs She did not qualify for home health Remained afebrile, no leukocytosis She was kept on antibiotics throughout hospitalization, nares MRSA negative, I will give her Levaquin 5-day regimen at the time of discharge Previous sputum culture positive for Serratia Venous Doppler did not show DVT Her Chest x-ray before discharge showed no new changes Physical Exam Narrative: Awake and alert GCS 15 S1, S2 Currently on room air Nonfocal neuro exam Discharge Data Studies Completed and Pending Completed Studies During Hospitalization Category Date Time Status CTA chest [CT angio chest PE protcl [id number]] Stat Cat Scan 02/21/23 17:35 Completed XR chest 1V portable [id number] Urgent Exams 02/21/23 15:47 Completed Pathology: Surgical [PTH] Routine Pth 02/23/23 13:43 Completed US venous duplex lower extremity bilat [CV venous Ultrasound 02/21/23 20:06 [place] [id number]] Stat Pending at discharge Category Date Time Status CA echo doppler complete Stat Exams 02/21/23 20:06 Stop Req XR chest 1V portable [id number] Routine Exams 02/24/23 08:12 Taken Bronch Washing Culture & GS Routine Lab 02/23/23 13:42 Received PROTEIN C, ACTIVITY Routine Lab 02/22/23 13:00 Received PROTEIN S, ACTIVITY Routine Lab 02/22/23 13:00 Received Cytology [PTH] Routine Pth 02/23/23 13:40 Ordered CV. echo lmt w color [id number] Routine Ultrasound 02/22/23 10:45 Taken Radiology Impressions Chest CTA 02/21/23 17:35 IMPRESSION: 1. Propagation (worsening) of the thrombus in the proximal left lower lobe pulmonary artery. Persistent chronic emboli or thrombus in left lower lobe artery branches with 2. Worsened occlusion and expansion bronchi in the left lower lobe. And endobronchial malignant process cannot be excluded. Follow-up with bronchoscopy should be considered. 3. Increased interlobular septal thickening in the left lower lobe. Lymphangitic spread of malignant tumor is not excluded. 4. Mild centrilobular opacities in the right lower lobe could represent infectious bronchiolitis or mild aspiration. 5. Multiple hepatic nodules are suspicious for worsening metastatic disease. ADDENDUM: 02/21/231913 THIS REPORT CONTAINS FINDINGS THAT MAY BE CRITICAL TO PATIENT CARE. The findings were verbally communicated via telephone conference with Pelon León at 7:13 PM CDT on 02/21/2023. The findings were acknowledged and understood. Venous Duplex 02/21/23 20:06 IMPRESSION: No evidence of deep vein thrombosis. Laboratory Results WBC 4.7 10^3/uL (4.0-10.0) 02/24/23 06:15 RBC 3.38 10^6/uL (4.1-5.3) L 02/24/23 06:15 Hgb 9.5 g/dL (11.5-15.3) L 02/24/23 06:15 Hct 31.0 % (37.0-47.0) L 02/24/23 06:15 MCV 91.7 fl (81-99) 02/24/23 06:15 MCH 28.1 pg (28.0-34.0) 02/24/23 06:15 MCHC 30.6 g/dL (30.0-36.0) 02/24/23 06:15 RDW 15.5 % (12.1-15.1) H 02/24/23 06:15 Plt Count 239 10^3/cmm (130-400) 02/24/23 06:15 MPV 9.3 fL (7.4-10.4) 02/24/23 06:15 Neut % (Auto) 68.9 % 02/24/23 06:15 Lymph % (Auto) 27.3 % 02/24/23 06:15 [place] % (Auto) 3.4 % 02/24/23 06:15 Eos % (Auto) 0.0 % 02/24/23 06:15 Baso % (Auto) 0.2 % 02/24/23 06:15 Neut # (Auto) 3.20 10^3/uL (1.8-7.7) 02/24/23 06:15 Lymph # (Auto) 1.3 10^3/uL (0.8-4.8) 02/24/23 06:15 [place] # (Auto) 0.2 10^3/uL (0.2-0.9) 02/24/23 06:15 Eos # (Auto) 0.0 10^3/uL (0.0-0.8) 02/24/23 06:15 Baso # (Auto) 0.0 10^3/uL (0.0-0.1) 02/24/23 06:15 Nucleated RBC % (auto) 0 % 02/24/23 06:15 Nucleated RBCs # 0.0 /100WBC 02/24/23 06:15 PT 14.50 SECONDS (12.1-14.9) 02/22/23 13:00 INR 1.10 (0.8-1.2) 02/22/23 13:00 APTT 68.5 SECONDS (23.9-36.7) H 02/23/23 04:14 Fibrinogen 369 mg/dL (174-498) 02/22/23 13:00 Fibrin Degrad Products Not Reportable 02/22/23 13:00 D-Dimer 0.37 ug/mIFEU (0-0.59) 02/22/23 13:00 Sodium 135 mmol/L (136-145) L 02/24/23 06:15 Potassium 4.4 mmol/L (3.5-5.1) 02/24/23 06:15 Chloride 105 mmol/L (98-107) 02/24/23 06:15 Carbon Dioxide 23 mmol/L (22-29) 02/24/23 06:15 Anion Gap 11.4 (5-19) 02/24/23 06:15 BUN 8 mg/dL (6-20) 02/24/23 06:15 Creatinine 0.5 mg/dL (0.5-0.9) 02/24/23 06:15 GFR Calculation 130.1 mL/min (90-130) H 02/24/23 06:15 Glucose 108 mg/dL (65-115) 02/24/23 06:15 Calculated Osmolality 279 mOsm/kg (285-295) L 02/24/23 06:15 Lactic Acid 3.2 mmol/L (0.5-2.2) H 02/21/23 18:19 Lactic Acid (Sepsis) 2.5 mmol/L (0.5-2.2) H 02/21/23 23:20 Calcium 8.6 mg/dL (8.5-10.5) 02/24/23 06:15 Magnesium 1.8 mg/dL (1.7-2.3) 02/24/23 06:15 Total Bilirubin 0.3 mg/dL (0.15-1.2) 02/24/23 06:15 AST 20 U/L (0-32) 02/24/23 06:15 ALT 12 U/L (0-33) 02/24/23 06:15 Alkaline Phosphatase 90 U/L (35-105) 02/24/23 06:15 Troponin T Gen 5 ng/L 6 ng/L (0-10) 02/24/23 06:15 Troponin T Baseline 6 ng/L (0-10) 02/21/23 16:17 Troponin T 120 Minute 10.26 ng/L (0-10) H 02/21/23 18:19 Delta Troponin T 4.26 ABS# (0-10) 02/21/23 18:19 Troponin T Hi Sens 6Hr 6.00 ng/L (0-10) 02/21/23 23:20 Troponin T Hi Sens 6Hr Delta 0 ng/L (0-12) 02/21/23 23:20 NT-Pro-B Natriuret Pep 116 pg/mL (0-125) 02/21/23 18:19 Total Protein 5.5 g/dL (6.6-8.7) L 02/24/23 06:15 Albumin 3.0 g/dL (3.5-5.2) L 02/24/23 06:15 Globulin 2.5 g/dL (1.3-4.6) 02/24/23 06:15 Bronch Specimen Source Left lower lobe 02/23/23 13:42 Bronchial Fluid Color Slight pink 02/23/23 13:42 Bronchial Fluid Appearance Cloudy (CLEAR) 02/23/23 13:42 Bronchial Fluid WBC 810 /uL 02/23/23 13:42 Bronchial Fluid RBC 6650 10^3/uL 02/23/23 13:42 Bronch Cells Counted 200 02/23/23 13:42 Bronchial Neutrophils 95.00 % (0.9-2.3) H 02/23/23 13:42 Bronchial Lymphocytes 1.00 % (10.71-12.91) L 02/23/23 13:42 Bronchial Eosinophils 0.00 % (0.13-0.25) L 02/23/23 13:42 Bronchial Macrophages 4.00 % (83.6-86.8) L 02/23/23 13:42 Bronchial Other Cells 0 % 02/23/23 13:42 Bronchial Diff Comment Yes 02/23/23 13:42 Vitals Last Vital Signs Temp 98.2 F 02/24/23 08:00 Pulse 64 02/24/23 08:00 Resp 18 02/24/23 08:18 BP 126/77 02/24/23 08:00 Pulse Ox 99 02/24/23 08:00 O2 Del Method Room Air 02/24/23 08:00 Discharge Plan Discharge Patient Disposition: Home Condition: Stable Prescriptions: New oxycodone-acetaminophen 5-325 mg tablet 1 tab PO Q8H PRN (Reason: pain) Qty: 10 0RF albuterol sulfate 90 mcg/actuation HFA aerosol inhaler 2 inh inhalation Q8H PRN (Reason: shortness of breath or wheezing) Qty: 8.5 0RF ondansetron HCl 4 mg tablet 4 mg PO Q8H 7 Days Qty: 21 0RF enoxaparin [Lovenox] 40 mg/0.4 mL syringe 55 mg SUBCUT Q12H Qty: 4 10RF levofloxacin 750 mg tablet 750 mg PO DAILY 7 Days Qty: 7 0RF Continued morphine 15 mg tablet 15 mg PO .EVERY 4-6 HOURS PRN (Reason: pain) 30 Days Qty: 60 0RF morphine 60 mg tablet extended release 60 mg PO Q12H 30 Days Qty: 60 0RF lorazepam 1 mg tablet 0.5 - 1 mg PO Q6H PRN (Reason: Severe Nausea) Qty: 30 3RF promethazine 25 mg tablet 25 mg PO Q6H PRN (Reason: nausea and vomiting) Qty: 20 0RF Eliquis 5 mg tablet 5 mg PO BID@0900,2100 Hold Instructions: Resume on 01/29/23. atorvastatin 40 mg Tablet 40 mg PO BEDTIME Qty: 30 0RF azithromycin 250 mg tablet See Rx Instructions .ROUTE .COMPLEX Rx Instructions: TAKE 2 TABLETS BY MOUTH TODAY, THEN TAKE 1 TABLET DAILY ON DAYS 2-5 potassium chloride 20 mEq tablet extended release 20 meq PO QAM naloxone 4 mg/actuation [place],Non-Aerosol 4 mg INTRANASAL Q2M PRN (Reason: Opiate Reversal) Rx Instructions: spray 1 dose into ONE nostril; alternate nostrils w each dose until help arrives lidocaine-prilocaine 2.5-2.5 % cream See Rx Instructions .ROUTE .COMPLEX Rx Instructions: Apply to port 30-45 minutes prior to port access montelukast [Singulair] 10 mg tablet 10 mg PO QAM 5-Fu Pump See Rx Instructions .ROUTE .COMPLEX Rx Instructions: as directed for 48 hours acetaminophen [Tylenol Ex Str Rapid Release] 500 mg Tablet 1,000 mg PO Q6H PRN (Reason: Pain) Discharge Orders: Discharge Order (Routine); Ordered 02/24/23 Ordered By: Jocelyn Isidro Referrals: Clarice Perez MD [Primary Care Provider] - Henrique Jacobs MD [Staff Physician] - 4-7 days Patient Instructions: Opioid Safety, Pain Management Discharge Attestations Time Spent in Discharge Care*: greater than 30 min Quality Metrics Clinical Quality Measures [ No reported AMI, CVA or VTE this stay] Coding Level of Care Code Acute Code for Chg Fwd Diagnoses Pulmonary embolism I26.99 Embolism due to malignant neoplasm I74.9; C80.1 Colon cancer metastasized to liver C18.9; C78.7 Cancer related pain G89.3 Postobstructive pneumonia J18.9 Endobronchial mass R91.8
[2023-02-24] MEDS: morphine ER (12 HR) 30 mg tablet 60 MG PO (11:38)
--- NOTE | 2023-02-24 18:23 | PC.NURSE ---
Discharge Note Patient discharged to home via private vehicle accompanied by . Discharge instructions reviewed with patient and/or appeals representative. Mobile pharmacy medications and/or prescriptions provided. Belongings/home medications returned.
[2023-02-25 04:15] LABS: PROTEIN C, ACTIVITY 129 % normal (70-180)
[2023-02-26 22:15] LABS: PROTEIN S, ACTIVITY 49 % normal (60-140)
== END 2023-02-24 17:45 | disposition home or self-care (01) | DRG 167 ==
LOC: ER 19:48 → MEDSURG 20:59
PROVIDERS: Internal Medicine Pulmonary Disease; Physician Assistant; Admitting Provider Student in an Organized Health Care Education/Training Program; Emergency Provider Emergency Medicine; PCP Family Medicine; Visit Provider Internal Medicine
PROC: 0BJ08ZZ Inspection of Tracheobronchial Tree, Via Natural or Artificial Opening Endoscopic (ICD-10-PCS; CPT 31622; principal; 2023-02-23 11:15)
PROC: BB4BZZZ Ultrasonography of Pleura (ICD-10-PCS; 2023-02-23 11:15)
DX: I27.82 Chronic pulmonary embolism (principal); C18.9 Malignant neoplasm of colon, unspecified; C78.7 Secondary malignant neoplasm of liver and intrahepatic bile duct; T17.890A Other foreign object in other parts of respiratory tract causing asphyxiation, initial encounter; K62.5 Hemorrhage of anus and rectum; E87.1 Hypo-osmolality and hyponatremia; Z90.49 Acquired absence of other specified parts of digestive tract; Z93.3 Colostomy status; Z79.899 Other long term (current) drug therapy; Z79.891 Long term (current) use of opiate analgesic; Z79.01 Long term (current) use of anticoagulants; G89.3 Neoplasm related pain (acute) (chronic); Z87.01 Personal history of pneumonia (recurrent); Z87.891 Personal history of nicotine dependence; E86.0 Dehydration; F32.A Depression, unspecified; X58.XXXA Exposure to other specified factors, initial encounter
CPT/HCPCS: 31624; 31625; 31645; 36415; 36592; 71045; 71275; 80053; 80503; 83605; 83735; 83880; 84484; 85025; 85303; 85306; 85362; 85378; 85384; 85610; 85730; 87070; 87077; 87186; 87205; 87641; 88112; 88309; 89050; 93005; 93308; 93325; 93970; 96372; 96374; 96375; 97110; 99285; C9113; J0330; J1100; J1644; J1650; J2250; J2270; J2405; J2543; J2704; J3010; J3490; J7030; Q0169; Q9967

== ENCOUNTER 2023-02-26 10:08 | Emergency (ER) | payer MEDICAID, SELFPAY ==
[2023-02-26] VITALS (7 sets, daily range): BP systolic 119–133; BP diastolic 63–85; PULSE 85–102; RESP 18–22; TEMP 36.3–36.6; O2SAT 89–99; BMI 19.9
--- NOTE | 2023-02-26 10:10 | XRR_ITS ---
PROCEDURE INFORMATION: Exam: XR Chest Exam date and time: 02/26/2023 10:27 AM Age: 53 years old Clinical indication: Pain; Chest pressure; Prior surgery; Surgery date: <1 month; Surgery type: Port; Additional info: Cp TECHNIQUE: Imaging protocol: Radiologic exam of the chest. Views: 1 view. COMPARISON: 1. CR XR chest 1V portable [id number] 02/24/2023 8:21 AM 2. CR XR chest 1V portable [id number] 02/21/2023 4:03 PM 3. CR (CHEST, ) 02/20/2023 9:07 PM FINDINGS: Tubes, catheters and devices: Left chest port terminates at the superior cavoatrial junction. Lungs: Similar patchy left basilar opacification. Pleural spaces: Unremarkable. No pleural effusion. No pneumothorax. Heart/Mediastinum: Unremarkable. No cardiomegaly. Bones/joints: Unremarkable. XR/XR chest 1V portable [id number] IMPRESSION: Patchy left basilar opacification without significant interval change.
--- NOTE | 2023-02-26 10:23 | W.ED.CHESTPA ---
HPI - Chest Pain General: Chief Complaint: Chest Pain Stated Complaint: chest pain, sob Time Seen by Provider: 02/26/23 10:10 History of Present Illness: Patient is a 53-year-old female comes to the ED with chest pain and shortness of breath. Patient has a history of metastatic colon cancer with hepatic mets and she is currently on chemotherapy.diagnosed with PE back in December 2022 and was put on Eliquis. Patient was seen here in the ED back on February 21 for same complaint and CTA chest showed worsening PE and she was switched to Lovenox She has had a bronchoscope performed on February 23 and they removed some thick mucus secretions plugging lower lobes. Today patient was lying in bed and she started having a coughing fit. Her chest pain and shortness of breath started immediately after that. She says her chest pain is located in the middle of her chest and she rates it a 10 out of 10. Endorses nausea. Denies any episode of emesis, fevers. Associated symptoms: Reports dyspnea; Deny abdominal pain, fever(s), nausea, palpitations or vomiting Review of Systems Const: Denies: fever(s), chills or fatigue Eyes: Denies: change in vision or eye discomfort ENMT: Denies: throat pain, odynophagia, nasal discharge or nasal congestion Card: Reports: chest pain; Denies: palpitations, edema, swelling of feet/ankles, dyspnea on exertion or orthopnea Resp: Reports: dyspnea; Denies: productive cough or non-productive cough GI: Denies: abdominal pain, nausea, vomiting, diarrhea, constipation or hematochezia : Denies: flank pain, dysuria or hematuria Musc: Denies: neck pain, back pain or extremity swelling Skin/Breast: Denies: rash or new lesions Neuro: Denies: headache(s), numbness in extremities or weakness in extremities PFS ED PFSH: Medical History (Updated 02/26/23 @ 13:31 by JACKI Nguyen) Bleeding per rectum Cancer related pain Chronic anticoagulation Colon cancer Colon cancer metastasized to liver Diverticulitis Embolism due to malignant neoplasm Endobronchial mass Hyponatremia Pneumonia Port-A-Cath in place Left chest wall Postobstructive pneumonia Pulmonary embolism Pulmonary embolism Shortness of breath Surgical History History of colon surgery 09/2022 ostomy placed. Family History Other CAD (coronary artery disease) Cancer Hyperlipidemia Hypertension Lung disease Psychiatric illness Stroke Denies family history of Diabetes Clotting disorder Dementia Chronic kidney disease (CKD) Suicide Anesthesia complication Bleeding disorder Social History Smoking and tobacco status: former smoker Quit status (tobacco): has quit using tobacco Former quit date comment: smoked x 10 years Alcohol intake: never Physical Exam Const: COMMON NORMALS: patient oriented x3 and alert GENERAL APPEARANCE: cooperative and ill appearing HENMT: COMMON NORMALS: normocephalic HEAD & SCALP: normocephalic MOUTH: Normal oral and palatal mucosa present THROAT: posterior oropharynx normal and uvula midline Neck/C-Spine: COMMON NORMALS: supple GENERAL: Yes normal visual inspection Resp: COMMON NORMALS: No retractions, No use of accessory muscles and clear to auscultation bilaterally EFFORT & INSPECTION: No able to speak in complete sentences and Yes tachypneic AUSCULTATION: clear to auscultation bilaterally OTHER: Patient is taking short shallow breaths. Cardio: COMMON NORMALS: regular rate, regular rhythm, S1 normal heart sound present, S2 normal heart sound present, No gallops present (Cardio), No clicks present (Cardio), No murmurs present (Cardio) and Peripheral pulses 2+ throughout RATE: regular rate RHYTHM: regular rhythm HEART SOUNDS: S1 normal heart sound present and S2 normal heart sound present PERIPHERAL PULSES: Peripheral pulses 2+ throughout GI: COMMON NORMALS: Normal to inspection, nondistended, normoactive bowel sounds present, Soft to palpation, non-tender and no masses PALPATION: Yes Soft to palpation : COMMON NORMALS: Yes no CVA tenderness BLADDER/KIDNEY EXAM: Yes no CVA tenderness Back/Pelvis: COMMON NORMALS: no CVA tenderness Extremity: COMMON NORMALS: normal to inspection Neuro: COMMON NORMALS: patient oriented x3 SENSORIUM/ORIENTATION: Yes alert GAIT: Yes Normal gait present Skin: GENERAL SKIN EXAM: dry skin Course Vital Signs: Vital signs: Vital Signs Temperature 97.8 F 02/26/23 12:00 Pulse Rate 102 H 02/26/23 10:24 Respiratory Rate 18 02/26/23 12:19 Blood Pressure 133/81 02/26/23 12:00 Pulse Oximetry 93 07/15/23 11:09 Oxygen Delivery Me thod Room Air 02/26/23 11:09 MDM - Chest Pain Medical Decision Making Patient is a 53-year-old female comes to the ED with chest pain and shortness of breath. Patient has a history of metastatic colon cancer with hepatic mets and she is currently on chemotherapy.diagnosed with PE back in December 2022 and was put on Eliquis. Patient was seen here in the ED back on February 21 for same complaint and CTA chest showed worsening PE and she was switched to Lovenox She has had a bronchoscope performed on February 23 and they removed some thick mucus secretions plugging lower lobes. Today patient was lying in bed and she started having a coughing fit. Her chest pain and shortness of breath started immediately after that. She says her chest pain is located in the middle of her chest and she rates it a 10 out of 10. Endorses nausea. Denies any episode of emesis, fevers. Vitals are stable and patient's O2 saturation is 97% on room air and her respirations are 18. Upon initial exam patient had some tachypnea but rest of exam was benign and lungs were clear to auscultation bilaterally. After patient received some pain meds her breathing improved respirations around 18 and she seemed comfortable on exam bed and in no acute distress. Hemoglobin was 9.4 and her hemoglobin from 2 days ago was 9.5. Potassium was 3.3 and rest of her CBC and CMP were unremarkable. Lactic acid was normal. Baseline troponin was 6 and 2-hour troponin was 6. EKG showed normal sinus rhythm with no ST segment elevation or depression seen. Chest x-ray showed patchy left basilar opacification which remains unchanged from past imaging. CTA of chest just shows the left pulmonary embolism with no evidence of acute change. Patient's symptoms were controlled with nausea and pain meds. She was given a dose of p.o. potassium before discharge. She was diagnosed with PE and chest pain and has follow-up appointments with a couple of her doctors this coming week. Strict return to ED precautions given. She was told to continue taking her previously prescribed medications and she has p.o. morphine at home for pain. Patient understood and agreed with plan. I spoke with Dr. León about patient case and he reviewed case and agreed with plan. Lab Data I reviewed the patient's lab results. 02/26/23 10:47 02/26/23 10:47 Radiology Impressions Chest X-Ray 02/26/23 10:10 IMPRESSION: Patchy left basilar opacification without significant interval change. Chest CTA 02/26/23 11:01 IMPRESSION: 1. Known left pulmonary arterial emboli. No evidence of interval propagation. Hypoenhancement of the left lower lobe pulmonary arterial branches (previously nonenhancing) may be on the basis of differences in contrast bolus timing, bronchial collateralization, or evolution with some degree of patency. 2. No significant interval change in expanded occluded left lower lobe bronchi. 3. Decreased mild right lower lobe centrilobular nodules. 4. Additional chronic and incidental findings as above. COMMENTS: Consistent with the [place] [employer]'s Incidental Findings Committee white paper (J Am Maci Radiol 2018): Any incidental renal lesion less than 1 cm or classified as too small to characterize, or any incidental cystic renal lesion characterized as simple-appearing, is likely benign. No follow-up imaging is recommended for these lesions per consensus recommendations based on imaging criteria. Laboratory Results WBC 5.1 10^3/uL (4.0-10.0) 02/26/23 10:47 RBC 3.34 10^6/uL (4.1-5.3) L 02/26/23 10:47 Hgb 9.4 g/dL (11.5-15.3) L 02/26/23 10:47 Hct 29.5 % (37.0-47.0) L 02/26/23 10:47 MCV 88.3 fl (81-99) 02/26/23 10:47 MCH 28.1 pg (28.0-34.0) 02/26/23 10:47 MCHC 31.9 g/dL (30.0-36.0) 02/26/23 10:47 RDW 15.4 % (12.1-15.1) H 02/26/23 10:47 Plt Count 246 10^3/cmm (130-400) 02/26/23 10:47 MPV 9.3 fL (7.4-10.4) 02/26/23 10:47 Neut % (Auto) 61.1 % 02/26/23 10:47 Lymph % (Auto) 31.3 % 02/26/23 10:47 [place] % (Auto) 2.8 % 02/26/23 10:47 Eos % (Auto) 4.2 % 02/26/23 10:47 Baso % (Auto) 0.4 % 02/26/23 10:47 Neut # (Auto) 3.09 10^3/uL (1.8-7.7) 02/26/23 10:47 Lymph # (Auto) 1.6 10^3/uL (0.8-4.8) 02/26/23 10:47 [place] # (Auto) 0.1 10^3/uL (0.2-0.9) L 02/26/23 10:47 Eos # (Auto) 0.2 10^3/uL (0.0-0.8) 02/26/23 10:47 Baso # (Auto) 0.0 10^3/uL (0.0-0.1) 02/26/23 10:47 Nucleated RBC % (auto) 0 % 02/26/23 10:47 Nucleated RBCs # 0.0 /100WBC 02/26/23 10:47 Sodium 135 mmol/L (136-145) L 02/26/23 10:47 Potassium 3.3 mmol/L (3.5-5.1) L 02/26/23 10:47 Chloride 102 mmol/L (98-107) 02/26/23 10:47 Carbon Dioxide 20 mmol/L (22-29) L 02/26/23 10:47 Anion Gap 16.3 (5-19) 02/26/23 10:47 BUN 7 mg/dL (6-20) 02/26/23 10:47 Creatinine 0.5 mg/dL (0.5-0.9) 02/26/23 10:47 GFR Calculation 130.1 mL/min (90-130) H 02/26/23 10:47 Glucose 89 mg/dL (65-115) 02/26/23 10:47 Calculated Osmolality 277 mOsm/kg (285-295) L 02/26/23 10:47 Lactic Acid 1.2 mmol/L (0.5-2.2) 02/26/23 10:47 Calcium 8.8 mg/dL (8.5-10.5) 02/26/23 10:47 Total Bilirubin 0.5 mg/dL (0.15-1.2) 02/26/23 10:47 AST 19 U/L (0-32) 02/26/23 10:47 ALT 14 U/L (0-33) 02/26/23 10:47 Alkaline Phosphatase 83 U/L (35-105) 02/26/23 10:47 Troponin T Baseline 6 ng/L (0-10) 02/26/23 10:47 Troponin T 120 Minute 6.00 ng/L (0-10) 02/26/23 12:25 NT-Pro-B Natriuret Pep 143 pg/mL (0-125) H 02/26/23 10:47 Total Protein 5.8 g/dL (6.6-8.7) L 02/26/23 10:47 Albumin 3.3 g/dL (3.5-5.2) L 02/26/23 10:47 Globulin 2.5 g/dL (1.3-4.6) 02/26/23 10:47 Lipase 10 U/L (13-60) L 02/26/23 10:47 EKG Data EKG 1: EKG interpretation date: 02/26/23 Interpretation: Sinus rhythm, no ST segment elevation or depression seen. 72 bpm. Discharge Plan Discharge Patient Disposition: Home Clinical Impression: Pulmonary embolism Qualifiers: Acute cor pulmonale presence: without acute cor pulmonale Chest pain Qualifiers: Chest pain type: unspecified Qualified Code(s): R07.9 - Chest pain, unspecified Condition: Stable Prescriptions: No Action morphine 15 mg tablet 15 mg PO .EVERY 4-6 HOURS PRN (Reason: pain) 30 Days Qty: 60 0RF morphine 60 mg tablet extended release 60 mg PO Q12H 30 Days Qty: 60 0RF lorazepam 1 mg tablet 0.5 - 1 mg PO Q6H PRN (Reason: Severe Nausea) Qty: 30 3RF promethazine 25 mg tablet 25 mg PO Q6H PRN (Reason: nausea and vomiting) Qty: 20 0RF Eliquis 5 mg tablet 5 mg PO BID@0900,2100 Hold Instructions: Resume on 01/29/23. Rx Instructions: MEDICATION ON HOLD 02/26/23 atorvastatin 40 mg Tablet 40 mg PO BEDTIME Qty: 30 0RF potassium chloride 20 mEq tablet extended release 20 meq PO QAM levofloxacin 750 mg tablet 750 mg PO DAILY 7 Days Qty: 7 0RF Rx Instructions: FOR 7 DAYS (RX FILLED 02/24/23) oxycodone-acetaminophen 5-325 mg tablet 1 tab PO Q8H PRN (Reason: pain) Qty: 10 0RF albuterol sulfate 90 mcg/actuation HFA aerosol inhaler 2 inh inhalation Q8H PRN (Reason: shortness of breath or wheezing) Qty: 8.5 0RF naloxone 4 mg/actuation Mutual,Non-Aerosol 4 mg INTRANASAL Q2M PRN (Reason: Opiate Reversal) Rx Instructions: spray 1 dose into ONE nostril; alternate nostrils w each dose until help arrives lidocaine-prilocaine 2.5-2.5 % cream See Rx Instructions .ROUTE .COMPLEX Rx Instructions: Apply to port 30-45 minutes prior to port access montelukast [Singulair] 10 mg tablet 10 mg PO QAM 5-Fu Pump See Rx Instructions .ROUTE .COMPLEX Rx Instructions: as directed for 48 hours acetaminophen 500 mg Tablet 1,000 mg PO Q6H PRN (Reason: Pain) enoxaparin 60 mg/0.6 mL syringe See Rx Instructions .ROUTE .COMPLEX Rx Instructions: inject 55mg (0.55ml) SUBCUTANEOUSLY EVERY TWELVE HOURS. waste 0.05ml ondansetron HCl 4 mg tablet 4 mg PO Q8H PRN (Reason: Nausea And Vomiting) Discharge Orders: Discharge ED (Routine); Ordered 02/26/23 Ordered By: Carlos Eduardo Garza Referrals: Clarice Perez MD [Primary Care Provider] - Discharge Diet: Regular Discharge Activity: Increase activity as tolerated Patient Instructions: Chest Pain (ED), Pulmonary Embolism (ED) Activity Restrictions/Additional Instructions: Follow-up with medical provider as directed in the next 3 to 5 days for reevaluation. Continue taking home medications as previously prescribed. Return to the ER or your medical provider if condition worsens. Please read and understand discharge instructions. Thank you for choosing [facility] for your healthcare needs today. Please realize this is an emergency room and that we are providing you with a medical screening exam and this may not be complete and all inclusive of all the testing and or work up that you may need to determine your ailment or severity of your illness. It is very important that you follow up as instructed or that you return to the Emergency Department should you have concerns or if your condition changes or worsens in any way. Coding Level of Care Code ED Enterprise Software Engineer for Alison [place]
--- NOTE | 2023-02-26 10:25 | ECG_ITS ---
[facility] Test Date: 2023-02-26 Pat Name: Judi Lam Department: Room: Gender: Female Recorder Gravity Prospecting: : 1970 Requested By: Carlos Eduardo Garza Order Number: [id number] Marissa MD: Stefani Gonzalez M.D. Measurements Intervals [place] Rate: 81 P: 16 [place]: 122 QRS: 62 QRSD: 78 T: 29 QT: 412 QTc: 479 Interpretive Statements SINUS RHYTHM Compared to ECG 02/24/2023 08:49:25 No significant changes Electronically Signed On 02-26-2023 12:56:54 CDT by Stefani Gonzalez M.D. [id number]
--- NOTE | 2023-02-26 10:30 | ECG_ITS ---
[facility] Test Date: 2023-02-26 Pat Name: Judi Lam Department: Room: Gender: Female Executive Relations Specialist: : 1970 Requested By: Carlos Eduardo Garza Order Number: [id number] Marissa MD: Stefani Gonzalez M.D. Measurements Intervals [place] Rate: 75 P: 59 [place]: 145 QRS: 64 QRSD: 78 T: 55 QT: 432 QTc: 483 Interpretive Statements SINUS RHYTHM Compared to ECG 02/26/2023 10:25:31 No significant changes Electronically Signed On 02-26-2023 13:00:13 CDT by Stefani Gonzalez M.D. [id number]
[2023-02-26] MEDS: morphine 4 mg/mL SDV 1 mL IVP (10:46)
[2023-02-26] MEDS: ondansetron 2 mg/ML SDV 2 mL 4 MG IVP (10:47)
[2023-02-26] MEDS: aspirin 81 mg Chew Tablet 324 MG PO (10:47)
[2023-02-26 10:59] LABS: Basophils % 0.4 %; Eosinophils # 0.2 10^3/uL (0.0-0.8); Eosinophils % 4.2 %; Hematocrit 29.5 % (37.0-47.0); Hemoglobin 9.4 g/dL (11.5-15.3); Lymphocytes # 1.6 10^3/uL (0.8-4.8); Lymphocytes % 31.3 %; Mean Corpuscular HGB Conc 31.9 g/dL (30.0-36.0); Mean Corpuscular Hemoglobin 28.1 pg (28.0-34.0); Mean Corpuscular Volume 88.3 fl (81-99); Mean Platelet Volume 9.3 fL (7.4-10.4); Monocytes # 0.1 10^3/uL (0.2-0.9); Monocytes % 2.8 %; Neutrophils # 3.09 10^3/uL (1.8-7.7); Neutrophils % 61.1 %; Nucleated Red Blood Cells % 0 %; Platelet Count 246 10^3/cmm (130-400); Red Blood Count 3.34 10^6/uL (4.1-5.3); Red Cell Distribution Width 15.4 % (12.1-15.1); White Blood Count 5.1 10^3/uL (4.0-10.0)
--- NOTE | 2023-02-26 11:01 | CTR_ITS ---
PROCEDURE INFORMATION: Exam: CTA Chest With Contrast Exam date and time: 02/26/2023 11:16 AM Age: 53 years old Clinical indication: Shortness of breath; Prior surgery; Surgery date: <1 month; Surgery type: Port colon; Additional info: haresh JOHNSON TECHNIQUE: Imaging protocol: Computed tomographic angiography of the chest with contrast. Exam focused on the arteries. 3D rendering (Not supervised by radiologist): MIP and/or 3D reconstructed images were created by the technologist. Radiation optimization: All CT scans at this facility use at least one of these dose optimization techniques: automated exposure control; mA and/or kV adjustment per patient size (includes targeted exams where dose is matched to clinical indication); or iterative reconstruction. Contrast material: OMNI 350; Contrast volume: 54 ml; Contrast route: INTRAVENOUS (IV); REPORTING DATA: Count of CT and Cardiac NM exams in prior 12 months: This patient has received 10 known CTs and 0 known cardiac nuclear medicine studies in the 12 months prior to the current study. COMPARISON: 1. CT angio chest PE protcl [id number] 02/21/2023 6:[address] angio chest w abd pel w con 01/17/2023 9:[address] angio chest PE protcl [id number] 01/04/2023 10:10 AM RADIATION DOSE METRICS: Total DLP (mGy-cm): 192.51 FINDINGS: Tubes, catheters and devices: Left chest port terminates in the right atrium. Pulmonary arteries: Normal caliber. Intervally stable appearance of partial filling defect in the left main pulmonary artery. Previously occluded left lower lobe pulmonary arterial branches show hypoenhancement on today's exam. Regional serpentine opacities may represent bronchial artery collaterals. Aorta: No aortic aneurysm or dissection. Mild atherosclerotic calcification. Variant celiac and SMA anatomy with replaced hepatic artery arising from the SMA and left gastric artery having its own origin from the aorta. Lungs: Stable right middle lobe atelectasis. Stable right lower lobe pneumatocele. Stable biapical pleural-parenchymal scarring. Patchy inferior lingula bronchial filling defects overall similar to prior. Obstruction and expansion of multiple left lower lobe bronchi is also without significant interval change. Right lower lobe centrilobular nodules have decreased. Pleural spaces: Unremarkable. No pneumothorax. No pleural effusion. Heart: RV/LV ratio measures 1.1. No cardiomegaly. No pericardial effusion. Lymph nodes: Unremarkable. No enlarged lymph nodes. Liver: Few small hepatic hypodensities are stable. Gallbladder and bile ducts: Prior cholecystectomy. Kidneys and ureters: Simple exophytic left renal cyst. Bones/joints: No acute fracture. Mild degenerative changes along the spine, which shows slight levoconvex curvature. Soft tissues: Unremarkable. CT/CT angio chest PE protcl [id number] IMPRESSION: 1. Known left pulmonary arterial emboli. No evidence of interval propagation. Hypoenhancement of the left lower lobe pulmonary arterial branches (previously nonenhancing) may be on the basis of differences in contrast bolus timing, bronchial collateralization, or evolution with some degree of patency. 2. No significant interval change in expanded occluded left lower lobe bronchi. 3. Decreased mild right lower lobe centrilobular nodules. 4. Additional chronic and incidental findings as above. COMMENTS: Consistent with the [place] [employer]'s Incidental Findings Committee white paper (J Am Maci Radiol 2018): Any incidental renal lesion less than 1 cm or classified as too small to characterize, or any incidental cystic renal lesion characterized as simple-appearing, is likely benign. No follow-up imaging is recommended for these lesions per consensus recommendations based on imaging criteria.
[2023-02-26 11:16] LABS: Troponin(5th) Baseline 6 ng/L (0-10)
[2023-02-26 11:20] LABS: Lactic Sepsis W/Reflex 1.2 mmol/L (0.5-2.2)
[2023-02-26] MEDS: iohexol 350 mg/mL 500 mL Btl (per mL) IV (11:21)
[2023-02-26 11:23] LABS: Alanine Aminotransferase 14 U/L (0-33); Albumin Level 3.3 g/dL (3.5-5.2); Alkaline Phosphatase 83 U/L (35-105); Anion Gap 16.3 (5-19); Aspartate Amino Transferase 19 U/L (0-32); Blood Urea Nitrogen 7 mg/dL (6-20); Calcium 8.8 mg/dL (8.5-10.5); Carbon Dioxide 20 mmol/L (22-29); Chloride 102 mmol/L (98-107); Globulin 2.5 g/dL (1.3-4.6); Glomerular Filtration Rate 130.1 mL/min (90-130); Glucose 89 mg/dL (65-115); Lipase 10 U/L (13-60); NT Pro B Type Natriuretic Pept 143 pg/mL (0-125); Osmolality Calculated 277 mOsm/kg (285-295); Potassium 3.3 mmol/L (3.5-5.1); Sodium 135 mmol/L (136-145); Total Bilirubin 0.5 mg/dL (0.15-1.2); Total Protein 5.8 g/dL (6.6-8.7)
--- NOTE | 2023-02-26 11:23 | PC.PHAR ---
pts verified pts medications-states the pts eliquis is on hold -pts states the pt is out of the morphine er 60mg tabs last filled 01/25/23 30d/s states the pt has been using er 30mg tabs per pts -pts states the pt 5-fu pump was taken off when she was in [facility] a few days ago per pts -
[2023-02-26] MEDS: HYDROmorphone 1 mg/mL INJ 1 mL IVP (12:19)
[2023-02-26] MEDS: metoclopramide 5 mg/mL SDV 2 mL 10 MG IVP (12:19)
--- NOTE | 2023-02-26 12:25 | ECG_ITS ---
[facility] Test Date: 2023-02-26 Pat Name: Judi Lam Department: Room: Gender: Female Hospice Physician: : 1970 Requested By: Carlos Eduardo Garza Order Number: [id number] Marissa MD: Stefani Gonzalez M.D. Measurements Intervals [place] Rate: 72 P: 62 [place]: 148 QRS: 68 QRSD: 80 T: 66 QT: 453 QTc: 497 Interpretive Statements SINUS RHYTHM PROLONGED QT INTERVAL Compared to ECG 02/26/2023 10:30:37 Prolonged QT interval now present Electronically Signed On 02-26-2023 13:00:19 CDT by Stefani Gonzalez M.D. [id number]
[2023-02-26 13:32] LABS: Troponin 5 2HR Delta 0 ABS# (0-10)
[2023-02-26] MEDS: potassium chloride ER 20 mEq Tablet PO (13:46)
== END 2023-02-26 13:47 | disposition home or self-care (01) ==
PROVIDERS: Emergency Provider Physician Assistant; PCP Family Medicine
DX: I26.99 Other pulmonary embolism without acute cor pulmonale (principal); R07.9 Chest pain, unspecified; Z79.01 Long term (current) use of anticoagulants; Z87.891 Personal history of nicotine dependence; Z85.038 Personal history of other malignant neoplasm of large intestine; Z85.05 Personal history of malignant neoplasm of liver; Z86.711 Personal history of pulmonary embolism
CPT/HCPCS: 71045; 71275; 80053; 83605; 83690; 83880; 84484; 85025; 93005; 96374; 96375; 99285; J1170; J2270; J2405; J2765; Q9967

== ENCOUNTER 2023-03-14 08:00 | Oncology outpatient (recurring) (ONCR) | payer MEDICAID, SELFPAY ==
[2023-02-17 11:20] VITALS: BP 114/77; PULSE 94; RESP 20; TEMP 36.5; O2SAT 100
[2023-02-17 11:43] LABS: Basophils % 0.4 %; Eosinophils # 0.4 10^3/uL (0.0-0.8); Eosinophils % 5.4 %; Hematocrit 32.7 % (37.0-47.0); Hemoglobin 10.9 g/dL (11.5-15.3); Lymphocytes % 37.5 %; Mean Corpuscular HGB Conc 33.3 g/dL (30.0-36.0); Mean Platelet Volume 9.5 fL (7.4-10.4); Monocytes # 0.6 10^3/uL (0.2-0.9); Monocytes % 7.8 %; Neutrophils # 3.87 10^3/uL (1.8-7.7); Neutrophils % 48.8 %; Nucleated Red Blood Cells % 0 %; Platelet Count 296 10^3/cmm (130-400); Red Blood Count 3.76 10^6/uL (4.1-5.3); Red Cell Distribution Width 15.6 % (12.1-15.1); White Blood Count 7.9 10^3/uL (4.0-10.0)
[2023-02-17 11:55] LABS: Alanine Aminotransferase 6 U/L (0-33); Albumin Level 3.6 g/dL (3.5-5.2); Alkaline Phosphatase 112 U/L (35-105); Anion Gap 16.6 (5-19); Aspartate Amino Transferase 17 U/L (0-32); Blood Urea Nitrogen 4 mg/dL (6-20); Calcium 9.2 mg/dL (8.5-10.5); Carbon Dioxide 23 mmol/L (22-29); Chloride 103 mmol/L (98-107); Globulin 2.6 g/dL (1.3-4.6); Glomerular Filtration Rate 168.3 mL/min (90-130); Glucose 100 mg/dL (65-115); Osmolality Calculated 285 mOsm/kg (285-295); Potassium 3.6 mmol/L (3.5-5.1); Sodium 139 mmol/L (136-145); Total Bilirubin 0.4 mg/dL (0.15-1.2); Total Protein 6.2 g/dL (6.6-8.7)
[2023-02-21] MEDS: palonosetron 0.25 mg/5 mL SDV IVP (09:59)
[2023-02-21] MEDS: dextrose 5% 250 ML 75 ML IV (10:00)
[2023-02-21 10:01] VITALS: BP 122/76; PULSE 87; RESP 18; TEMP 36.6; O2SAT 99
[2023-02-21] MEDS: leucovorin 650 MG in dextrose 5% 250 ML 62.5 MG IV (10:23)
[2023-02-21 10:42] VITALS: RESP 18
[2023-02-21] MEDS: morphine IR 15 mg Tablet PO (10:42)
[2023-02-21] MEDS: fluorouraciL 3,900 MG, elastomeric pump 1 PUMP in sodium chloride 0.9% (100 ml) 14 ML IV (13:52)
[2023-02-21 13:57] VITALS: BP 108/74; PULSE 93; RESP 18; TEMP 36.4; O2SAT 99
[2023-02-21 14:18] VITALS: BP 135/83; PULSE 103; RESP 18; O2SAT 99
[2023-02-21] MEDS: LORazepam 2 mg/mL INJ 1 mL 0.5 MG IVP (14:34)
[2023-02-21 15:00] VITALS: PULSE 110; O2SAT 99
[2023-02-21 15:05] VITALS: PULSE 110; O2SAT 99
--- NOTE | 2023-02-21 15:59 | PC.NURSE ---
patient educated with spouse that Dr Jacobs recommends she goes to ER to be sure nothing else is going on. VS are normal but if she is still expressing tightness the ER could better assess her. Spouse and patient verbalizes understanding. Patient arrived at ER 1516 for evaluation. Continuing with chemo pump at this time.
[2023-03-07 08:19] VITALS: BP 87/63; PULSE 125; RESP 18; TEMP 37; O2SAT 99; BMI 19.9
[2023-03-07 08:47] LABS: Basophils % 0.4 %; Eosinophils # 0.5 10^3/uL (0.0-0.8); Eosinophils % 7.4 %; Hemoglobin 10.2 g/dL (11.5-15.3); Lymphocytes # 3.1 10^3/uL (0.8-4.8); Lymphocytes % 46.3 %; Mean Corpuscular HGB Conc 30.9 g/dL (30.0-36.0); Mean Corpuscular Hemoglobin 28.2 pg (28.0-34.0); Mean Corpuscular Volume 91.2 fl (81-99); Mean Platelet Volume 9.5 fL (7.4-10.4); Monocytes # 0.6 10^3/uL (0.2-0.9); Monocytes % 8.8 %; Neutrophils # 2.49 10^3/uL (1.8-7.7); Nucleated Red Blood Cells % 0 %; Platelet Count 158 10^3/cmm (130-400); Red Blood Count 3.62 10^6/uL (4.1-5.3); Red Cell Distribution Width 15.8 % (12.1-15.1); White Blood Count 6.7 10^3/uL (4.0-10.0)
[2023-03-07 09:00] LABS: Alanine Aminotransferase 9 U/L (0-33); Albumin Level 3.6 g/dL (3.5-5.2); Alkaline Phosphatase 104 U/L (35-105); Aspartate Amino Transferase 11 U/L (0-32); Blood Urea Nitrogen 5 mg/dL (6-20); Calcium 9.1 mg/dL (8.5-10.5); Carbon Dioxide 25 mmol/L (22-29); Chloride 101 mmol/L (98-107); Globulin 2.2 g/dL (1.3-4.6); Glomerular Filtration Rate 130.1 mL/min (90-130); Glucose 103 mg/dL (65-115); Osmolality Calculated 276 mOsm/kg (285-295); Sodium 134 mmol/L (136-145); Total Bilirubin 0.2 mg/dL (0.15-1.2); Total Protein 5.8 g/dL (6.6-8.7)
[2023-03-07] MEDS: sodium chloride 0.9% 500 ML 250 ML IV (10:38)
[2023-03-07 10:41] VITALS: BP 92/67; PULSE 108; RESP 17; TEMP 36.7; O2SAT 98
[2023-03-07] MEDS: acetaminophen 325 mg Tablet 650 MG PO (12:02)
[2023-03-14 08:14] VITALS: BP 107/74; PULSE 113; RESP 17; TEMP 36.9; O2SAT 97
[2023-03-14 08:32] LABS: Basophils % 0.7 %; Eosinophils # 0.5 10^3/uL (0.0-0.8); Eosinophils % 9.1 %; Hematocrit 33.9 % (37.0-47.0); Hemoglobin 10.6 g/dL (11.5-15.3); Lymphocytes # 2.7 10^3/uL (0.8-4.8); Lymphocytes % 48.4 %; Mean Corpuscular HGB Conc 31.3 g/dL (30.0-36.0); Mean Corpuscular Hemoglobin 29.1 pg (28.0-34.0); Mean Corpuscular Volume 93.1 fl (81-99); Mean Platelet Volume 9.5 fL (7.4-10.4); Monocytes # 0.9 10^3/uL (0.2-0.9); Monocytes % 16.1 %; Neutrophils # 1.38 10^3/uL (1.8-7.7); Nucleated Red Blood Cells % 0 %; Platelet Count 270 10^3/cmm (130-400); Red Blood Count 3.64 10^6/uL (4.1-5.3); Red Cell Distribution Width 15.2 % (12.1-15.1); White Blood Count 5.5 10^3/uL (4.0-10.0)
[2023-03-14 08:54] LABS: Alanine Aminotransferase 10 U/L (0-33); Albumin Level 3.3 g/dL (3.5-5.2); Alkaline Phosphatase 120 U/L (35-105); Anion Gap 13.4 (5-19); Aspartate Amino Transferase 17 U/L (0-32); Blood Urea Nitrogen 6 mg/dL (6-20); Calcium 9.5 mg/dL (8.5-10.5); Carbon Dioxide 28 mmol/L (22-29); Chloride 103 mmol/L (98-107); Globulin 2.4 g/dL (1.3-4.6); Glomerular Filtration Rate 234.5 mL/min (90-130); Glucose 108 mg/dL (65-115); Osmolality Calculated 288 mOsm/kg (285-295); Potassium 4.4 mmol/L (3.5-5.1); Sodium 140 mmol/L (136-145); Total Bilirubin 0.2 mg/dL (0.15-1.2); Total Protein 5.7 g/dL (6.6-8.7)
[2023-03-14 10:14] VITALS: BP 102/78; PULSE 104; RESP 16; TEMP 37; O2SAT 99
[2023-03-14] MEDS: dextrose 5% 250 ML 75 ML IV (10:39)
[2023-03-14] MEDS: sodium chloride 0.9% 500 ML 999 ML IV (10:41)
[2023-03-14] MEDS: palonosetron 0.25 mg/5 mL SDV IVP (10:43)
[2023-03-14] MEDS: leucovorin 650 MG in dextrose 5% 250 ML 78.75 MG IV (11:26)
[2023-03-14] MEDS: fluorouraciL 3,900 MG, elastomeric pump 1 PUMP in sodium chloride 0.9% (100 ml) 14 ML IV (14:23)
[2023-03-14 14:40] VITALS: BP 106/58; PULSE 96; TEMP 36.1; O2SAT 95
== END 2023-03-14 23:59 | disposition home or self-care (01) ==
PROVIDERS: Nurse Practitioner Family; PCP Family Medicine; Visit Provider Internal Medicine Hematology & Oncology
DX: Z51.11 Encounter for antineoplastic chemotherapy (principal); C18.7 Malignant neoplasm of sigmoid colon; C18.9 Malignant neoplasm of colon, unspecified
CPT/HCPCS: 36591; 80053; 85025; 96360; 96361; 96367; 96368; 96375; 96413; 96415; 96416; 96523; J0640; J1100; J1642; J2060; J2469; J7040; J7060; J9190; J9263

== ENCOUNTER 2023-03-19 19:05 | Emergency (ER) | payer MEDICAID, SELFPAY ==
[2023-03-19] VITALS (8 sets, daily range): BP systolic 102–111; BP diastolic 69–75; PULSE 84–96; RESP 16–18; TEMP 36.3; O2SAT 94–97
--- NOTE | 2023-03-19 19:32 | XRR_ITS ---
PROCEDURE INFORMATION: Exam: XR Chest Exam date and time: 03/19/2023 7:58 PM Age: 53 years old Clinical indication: Pain; Chest pressure; Additional info: Cp TECHNIQUE: Imaging protocol: Radiologic exam of the chest. Views: 1 view. COMPARISON: CR (CHEST, ) 02/26/2023 10:27 AM FINDINGS: Tubes, catheters and devices: Left subclavian approach MediPort is in satisfactory position, with distal tip in the RA. Lungs: Unremarkable. No consolidation. Pleural spaces: Unremarkable. No pleural effusion. No pneumothorax. Heart/Mediastinum: Stable cardiomediastinal silhouette. Diaphragm: There is streaky opacity in the retrocardiac region, with slight indistinctness of the hemidiaphragm. Bones/joints: Degenerative changes of the spine seen. Organs: Cholecystectomy clips project over the right upper quadrant. XR/XR chest 1V portable [id number] IMPRESSION: Streaky left basilar atelectasis, which may represent atelectasis or pneumonia. Clinical correlation is recommended.
--- NOTE | 2023-03-19 19:32 | ECG_ITS ---
[facility] Test Date: 2023-03-19 Pat Name: Judi Lam Department: Room: Gender: Female Insect Control Inspector: : 1970 Requested By: Niya Taylor Order Number: [id number] Marissa MD: Stefani Gonzalez M.D. Measurements Intervals [place] Rate: 87 P: 67 [place]: 154 QRS: 69 QRSD: 72 T: 68 QT: 363 QTc: 437 Interpretive Statements SINUS RHYTHM NONSPECIFIC ST ELEVATION [0.05+ mV ST ELEVATION] Compared to ECG 02/26/2023 12:25:57 ST (T wave) deviation now present Prolonged QT interval no longer present Electronically Signed On 03-20-2023 19:43:01 CDT by Stefani Gonzalez M.D. [id number]
--- NOTE | 2023-03-19 19:49 | W.ED.CHESTPA ---
HPI - Chest Pain General: Chief Complaint: Chest Pain Stated Complaint: chest/abd pain Time Seen by Provider: 03/19/23 19:49 History of Present Illness: 53-year-old lady with history of cancer and history of PE on anticoagulation without any recent missed doses presented the emergency department for chest pain which is substernal, epigastric, right upper quadrant pain. She describes it as a fullness however severe. No other specific changes in health, exacerbating, or alleviating factors identified. 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 Family History Other CAD (coronary artery disease) Cancer Hyperlipidemia Hypertension Lung disease Psychiatric illness Stroke Denies family history of Diabetes Clotting disorder Dementia Chronic kidney disease (CKD) Suicide Anesthesia complication Bleeding disorder Social History Smoking and tobacco status: former smoker Quit status (tobacco): has quit using tobacco Year quit tobacco: August 2022 Former quit date comment: smoked x 10 years Alcohol intake: never Physical Exam Const: COMMON NORMALS: alert GENERAL APPEARANCE: cooperative and well developed HENMT: COMMON NORMALS: normocephalic and atraumatic HEAD & SCALP: normocephalic and atraumatic Eye: COMMON NORMALS: conjunctivae normal CONJUNCTIVA: Yes conjunctivae normal SCLERA: sclerae normal Neck/C-Spine: COMMON NORMALS: supple GENERAL: Yes trachea midline Resp: COMMON NORMALS: normal respiratory effort EFFORT & INSPECTION: Yes able to speak in complete sentences Cardio: COMMON NORMALS: regular rate and regular rhythm RATE: regular rate RHYTHM: regular rhythm GI: COMMON NORMALS: Soft to palpation PALPATION: Yes Soft to palpation, Yes Tenderness to palpation present (GI), No Guarding due to palpation present (GI) and No Rigid due to palpation Extremity: GENERAL: Yes normal exam except as noted and No edema Neuro: COMMON NORMALS: moves all extremities SENSORIUM/ORIENTATION: Yes alert and No Orientation impaired Psych: COMMON NORMALS: mental status grossly normal and Normal thought process present THOUGHT PROCESS: Normal thought process present Course Vital Signs: Vital signs: Vital Signs Temperature 97.4 F L 03/19/23 19:31 Pulse Rate 95 03/19/23 23:57 Respiratory Rate 18 03/19/23 23:57 Blood Pressure 105/71 03/19/23 23:57 Pulse Oximetry 95 03/19/23 23:57 Oxygen Delivery Me thod Room Air 03/19/23 23:56 MDM - Chest Pain Medical Decision Making 53-year-old lady presenting with epigastric and chest pain. Exam as above. Nontoxic. No acute surgical abdomen. EKG shows sinus rhythm with normal axis and intervals. No STEMI. Labs with no leukocytosis, baseline anemia. No significant metabolic derangement. Negative range 2 or delta troponin. No UTI. Chest x-ray with no lobar consolidation or pneumothorax. CT abdomen pelvis with distended stomach. Hepatic mass has improved. Incidental findings discussed with patient. Patient significantly proved with analgesia and antiemetic. She is able to tolerate p.o. intake. Discussed cardiac risk stratification patient comfortable with outpatient follow-up. The results of ED evaluation were discussed with the patient including prescriptions and/or symptomatic cares (if applicable) including appropriate and responsible use, followup plan, and return precautions. The patient verbalized understanding and felt safe for discharge. Medical Records I reviewed the patient's medical records. Lab Data I reviewed the patient's lab results. 03/19/23 20:19 03/19/23 20:19 Radiology Impressions Chest X-Ray 03/19/23 19:32 IMPRESSION: Streaky left basilar atelectasis, which may represent atelectasis or pneumonia. Clinical correlation is recommended. Abdomen/Pelvis CT 03/19/23 21:27 IMPRESSION: 1. Stomach is distended with ingested material. With a history of nausea and vomiting, findings could reflect gastro paresis. No evidence of small bowel obstruction. 2. Interval decrease in size of hepatic mass lesions compatible with favorable therapeutic response. COMMENTS: Consistent with the [employer]'s Incidental Findings Committee white paper (J Am Maci Radiol 2018): Any incidental renal lesion less than 1 cm or classified as too small to characterize, or any incidental cystic renal lesion characterized as simple-appearing, is likely benign. No follow-up imaging is recommended for these lesions per consensus recommendations based on imaging criteria. Laboratory Results WBC 7.7 10^3/uL (4.0-10.0) 03/19/23 20:19 RBC 3.58 10^6/uL (4.1-5.3) L 03/19/23 20:19 Hgb 10.1 g/dL (11.5-15.3) L 03/19/23 20:19 Hct 32.2 % (37.0-47.0) L 03/19/23 20:19 MCV 89.9 fl (81-99) 03/19/23 20:19 MCH 28.2 pg (28.0-34.0) 03/19/23 20:19 MCHC 31.4 g/dL (30.0-36.0) 03/19/23 20:19 RDW 14.5 % (12.1-15.1) 03/19/23 20:19 Plt Count 204 10^3/cmm (130-400) 03/19/23 20:19 MPV 9.4 fL (7.4-10.4) 03/19/23 20:19 Neut % (Auto) 62.8 % 03/19/23 20:19 Lymph % (Auto) 26.1 % 03/19/23 20:19 [place] % (Auto) 5.7 % 03/19/23 20:19 Eos % (Auto) 4.5 % 03/19/23 20:19 Baso % (Auto) 0.5 % 03/19/23 20:19 Neut # (Auto) 4.83 10^3/uL (1.8-7.7) 03/19/23 20:19 Lymph # (Auto) 2.0 10^3/uL (0.8-4.8) 03/19/23 20:19 [place] # (Auto) 0.4 10^3/uL (0.2-0.9) 03/19/23 20:19 Eos # (Auto) 0.4 10^3/uL (0.0-0.8) 03/19/23 20:19 Baso # (Auto) 0.0 10^3/uL (0.0-0.1) 03/19/23 20:19 Nucleated RBC % (auto) 0 % 03/19/23 20:19 Nucleated RBCs # 0.0 /100WBC 03/19/23 20:19 Sodium 136 mmol/L (136-145) 03/19/23 20:19 Potassium 4.4 mmol/L (3.5-5.1) 03/19/23 20:19 Chloride 99 mmol/L (98-107) 03/19/23 20:19 Carbon Dioxide 29 mmol/L (22-29) 03/19/23 20:19 Anion Gap 12.4 (5-19) 03/19/23 20:19 BUN 8 mg/dL (6-20) 03/19/23 20:19 Creatinine 0.6 mg/dL (0.5-0.9) 03/19/23 20:19 GFR Calculation 105.4 mL/min (90-130) 03/19/23 20:19 Glucose 105 mg/dL (65-115) 03/19/23 20:19 Calculated Osmolality 281 mOsm/kg (285-295) L 03/19/23 20:19 Calcium 9.0 mg/dL (8.5-10.5) 03/19/23 20:19 Total Bilirubin 0.2 mg/dL (0.15-1.2) 03/19/23 20:19 AST 42 U/L (0-32) H 03/19/23 20:19 ALT 28 U/L (0-33) 03/19/23 20:19 Alkaline Phosphatase 110 U/L (35-105) H 03/19/23 20:19 Troponin T Baseline 9 ng/L (0-10) 03/19/23 20:19 Troponin T 120 Minute 6.00 ng/L (0-10) 03/19/23 22:10 Delta Troponin T -3 ABS# (0-10) L 03/19/23 22:10 Total Protein 6.2 g/dL (6.6-8.7) L 03/19/23 20:19 Albumin 3.4 g/dL (3.5-5.2) L 03/19/23 20:19 Globulin 2.8 g/dL (1.3-4.6) 03/19/23 20:19 Lipase 15 U/L (13-60) 03/19/23 20:19 Urine Color Yellow (Yellow) 03/19/23 21:30 Urine Appearance Clear (CLEAR) 03/19/23 21:30 Urine pH 9 (5-7) H 03/19/23 21:30 Ur Specific [place] 1.010 (1.005-1.030) 03/19/23 21:30 Urine Protein Neg (Negative) 03/19/23 21:30 Urine Glucose (UA) Norm (Normal) 03/19/23 21:30 Urine Ketones Negative (Negative) 03/19/23 21:30 Urine Blood Neg (Negative) 03/19/23 21:30 Urine Nitrate Negative (Negative) 03/19/23 21:30 Urine Bilirubin Neg (Negative) 03/19/23 21:30 Prot Sulfosalicylic Acd Negative (Negative) 03/19/23 21:30 Urine Urobilinogen Norm mg/dL (Negative) 03/19/23 21:30 Ur Leukocyte Esterase Negative (Negative) 03/19/23 21:30 Discharge Plan Discharge Patient Disposition: Home Clinical Impression: Abdominal pain, Chest pain, Nausea & vomiting, Anemia, History of cancer Condition: Stable Prescriptions: New Reglan 10 mg tablet 10 mg PO Q6H PRN (Reason: nausea and vomiting) Qty: 20 0RF oxycodone 5 mg tablet 5 mg PO Q4H PRN (Reason: pain) Qty: 10 0RF Protonix 40 mg tablet,delayed release (DR/EC) 40 mg PO BID 14 Days Qty: 28 0RF No Action lorazepam 1 mg tablet 0.5 - 1 mg PO Q6H PRN (Reason: Severe Nausea) Qty: 30 3RF enoxaparin 60 mg/0.6 mL syringe 60 mg .ROUTE Q12H 90 Days Qty: 108 2RF Rx Instructions: 60 mg every 12 hours; morphine 60 mg tablet extended release 60 mg PO Q12H 30 Days Qty: 60 0RF morphine 15 mg tablet 15 mg PO .EVERY 4-6 HOURS PRN (Reason: pain) 30 Days Qty: 60 0RF promethazine 25 mg tablet 25 mg PO Q6H PRN (Reason: nausea and vomiting) Qty: 20 0RF atorvastatin 40 mg Tablet 40 mg PO BEDTIME Qty: 30 0RF potassium chloride 20 mEq tablet extended release 20 meq PO QAM oxycodone-acetaminophen 5-325 mg tablet 1 tab PO Q8H PRN (Reason: pain) Qty: 10 0RF albuterol sulfate 90 mcg/actuation HFA aerosol inhaler 2 inh inhalation Q8H PRN (Reason: shortness of breath or wheezing) Qty: 8.5 0RF naloxone 4 mg/actuation [place],Non-Aerosol 4 mg INTRANASAL Q2M PRN (Reason: Opiate Reversal) Rx Instructions: spray 1 dose into ONE nostril; alternate nostrils w each dose until help arrives lidocaine-prilocaine 2.5-2.5 % cream See Rx Instructions .ROUTE .COMPLEX Rx Instructions: Apply to port 30-45 minutes prior to port access montelukast [Singulair] 10 mg tablet 10 mg PO QAM 5-Fu Pump See Rx Instructions .ROUTE .COMPLEX Rx Instructions: as directed for 48 hours acetaminophen 500 mg Tablet 1,000 mg PO Q6H PRN (Reason: Pain) ondansetron HCl 4 mg tablet 4 mg PO Q8H PRN (Reason: Nausea And Vomiting) Discharge Orders: Discharge ED (Routine); Ordered 03/19/23 Ordered By: Efe Dominguez Referrals: Clarice Perez MD [Primary Care Provider] - Discharge Diet: Clear Liquid Discharge Activity: Increase activity as tolerated Patient Instructions: Chest Pain (ED), Acute Nausea and Vomiting (ED), Abdominal Pain (ED), Gastroparesis (ED), Opioid Safety Activity Restrictions/Additional Instructions: Thank you for visiting the emergency department. You were seen and evaluated for abdominal pain with nausea vomiting as well as chest pain. The exact cause of your symptoms is unclear. As discussed your stomach is full however no clear obstruction seen. Labs show mild dehydration. I will prescribe different antinausea medication, you may use this instead of Zofran. Additionally I will prescribe extra doses of pain medication. Use these cautiously as that can worsen GI symptoms and in combination with other sedating medications you risk oversedation including respiratory and PROJECT GEOPHYSICIST depression. Follow-up with your primary care provider. Follow-up with oncology. I recommend clear liquid diet and slow advance as tolerated. Return for recurrent uncontrolled symptoms or anything else that you are concerned about and feel needs emergency department evaluation. Coding Level of Care Code ED Food And Beverage Assistant for Alison Groves
[2023-03-19] MEDS: fentaNYL 50 mcg/mL INJ 2mL IVP ×2 (20:26→21:16)
[2023-03-19 20:37] LABS: Basophils % 0.5 %; Eosinophils # 0.4 10^3/uL (0.0-0.8); Eosinophils % 4.5 %; Hematocrit 32.2 % (37.0-47.0); Hemoglobin 10.1 g/dL (11.5-15.3); Lymphocytes % 26.1 %; Mean Corpuscular HGB Conc 31.4 g/dL (30.0-36.0); Mean Corpuscular Hemoglobin 28.2 pg (28.0-34.0); Mean Corpuscular Volume 89.9 fl (81-99); Mean Platelet Volume 9.4 fL (7.4-10.4); Monocytes # 0.4 10^3/uL (0.2-0.9); Monocytes % 5.7 %; Neutrophils # 4.83 10^3/uL (1.8-7.7); Neutrophils % 62.8 %; Nucleated Red Blood Cells % 0 %; Platelet Count 204 10^3/cmm (130-400); Red Blood Count 3.58 10^6/uL (4.1-5.3); Red Cell Distribution Width 14.5 % (12.1-15.1); White Blood Count 7.7 10^3/uL (4.0-10.0)
[2023-03-19 21:03] LABS: Troponin(5th) Baseline 9 ng/L (0-10)
[2023-03-19 21:04] LABS: Alanine Aminotransferase 28 U/L (0-33); Albumin Level 3.4 g/dL (3.5-5.2); Alkaline Phosphatase 110 U/L (35-105); Anion Gap 12.4 (5-19); Aspartate Amino Transferase 42 U/L (0-32); Blood Urea Nitrogen 8 mg/dL (6-20); Carbon Dioxide 29 mmol/L (22-29); Chloride 99 mmol/L (98-107); Globulin 2.8 g/dL (1.3-4.6); Glomerular Filtration Rate 105.4 mL/min (90-130); Glucose 105 mg/dL (65-115); Lipase 15 U/L (13-60); Osmolality Calculated 281 mOsm/kg (285-295); Potassium 4.4 mmol/L (3.5-5.1); Sodium 136 mmol/L (136-145); Total Bilirubin 0.2 mg/dL (0.15-1.2); Total Protein 6.2 g/dL (6.6-8.7)
[2023-03-19] MEDS: ondansetron 2 mg/ML SDV 2 mL 4 MG IVP (21:16)
--- NOTE | 2023-03-19 21:27 | CTR_ITS ---
PROCEDURE INFORMATION: Exam: CT Abdomen And Pelvis With Contrast Exam date and time: 03/19/2023 10:32 PM Age: 53 years old Clinical indication: Nausea and vomiting; Abdominal pain; Localized; Right upper quadrant (ruq); Prior surgery; Surgery date: 6+ months; Surgery type: Chest port. Gb. Ileostomy. Enteric stent. Patient HX: Ruq pain with n/v. History of colon cancer. ; Additional info: Ruq/rl chest pain TECHNIQUE: Imaging protocol: Computed tomography of the abdomen and pelvis with contrast. Radiation optimization: All CT scans at this facility use at least one of these dose optimization techniques: automated exposure control; mA and/or kV adjustment per patient size (includes targeted exams where dose is matched to clinical indication); or iterative reconstruction. Contrast material: OMNI 350; Contrast volume: 100 ml; Contrast route: INTRAVENOUS (IV); REPORTING DATA: Count of CT and Cardiac NM exams in prior 12 months: This patient has received 11 known CTs and 0 known cardiac nuclear medicine studies in the 12 months prior to the current study. 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 There is mild bronchial wall thickening with branching centrilobular opacities at the right lung base suggesting chronic large and small airways disease. Pleural spaces: No pleural fluid. Heart: Heart size is normal. Liver: There are scattered low-attenuation lesions throughout the liver which appear smaller compared to the prior. Optics Technical Officer lesion in the medial segment left lobe measures 1.7 x 1.1 cm, previously 1.6 x 1.9 cm. Homogeneous low attenuation throughout the liver is compatible with fatty infiltration. Liver measures 18.0 cm in length. Gallbladder and bile ducts: Prior cholecystectomy. No biliary tree dilation or high-density retained stones appreciated. Pancreas: Normal. No ductal dilation. Spleen: Spleen measures 9.0 cm in length. Adrenal glands: Normal configuration. Kidneys and ureters: Simple cyst projects laterally from the right kidney. Additional smaller low-attenuation lesions in the right kidney are too small to fully characterize. No renal obstruction or inflammation. Stomach and bowel: Stomach is distended with ingested material. Normal caliber small bowel. Left lower quadrant end colostomy. There is a large endoluminal stent in the Valerie pouch at the level of the descending and sigmoid colon. Cecum is in the low pelvis. Appendix: Appendix is not seen with confidence but there is no inflammation at the cecal base. Intraperitoneal space: No free air. No significant fluid collection. Vasculature: Mild aortoiliac calcific atherosclerosis. Retroaortic left renal vein. Lymph nodes: No enlarged lymph nodes. Urinary bladder: Unremarkable as visualized. Reproductive: Atrophic uterus as expected. No adnexal masses. Bones/joints: No destructive bony lesions are seen. Widely patent spinal canal. Soft tissues: A loop of nondilated small bowel protrudes into the parastomal hernia. Lower abdominal wall injection sites are noted. CT/CT abdomen pelvis w con* [id number] IMPRESSION: 1. Stomach is distended with ingested material. With a history of nausea and vomiting, findings could reflect gastro paresis. No evidence of small bowel obstruction. 2. Interval decrease in size of hepatic mass lesions compatible with favorable therapeutic response. COMMENTS: Consistent with the [employer]'s Incidental Findings Committee white paper (J Am Maci Radiol 2018): Any incidental renal lesion less than 1 cm or classified as too small to characterize, or any incidental cystic renal lesion characterized as simple-appearing, is likely benign. No follow-up imaging is recommended for these lesions per consensus recommendations based on imaging criteria.
[2023-03-19 22:03] LABS: Add Urine Microscopic? NO; Charge for UA Resulting for Rev
[2023-03-19 22:16] LABS: Urine Appearance Clear (CLEAR); Urine Color Yellow (Yellow)
[2023-03-19 22:17] LABS: Bilirubin Urine Neg (Negative); Blood Urine Neg (Negative); Glucose Urine UA Norm (Normal); Ketones Urine Negative (Negative); Leukocyte Esterase Urine Negative (Negative); Nitrate Urine Negative (Negative); Protein Urine Neg (Negative); Sulfosalicylic Acid Urine Negative (Negative); Urobilinogen Urine Norm (Negative); pH Urine 9 (5-7)
[2023-03-19] MEDS: iohexol 350 mg/mL 500 mL Btl (per mL) IV (22:36)
[2023-03-19] MEDS: metoclopramide 5 mg/mL SDV 2 mL 10 MG IVP (22:56)
[2023-03-19] MEDS: HYDROmorphone 1 mg/mL INJ 1 mL 0.5 MG IVP (23:05)
[2023-03-19 23:11] LABS: Troponin 5 2HR Delta -3 ABS# (0-10)
== END 2023-03-20 00:06 | disposition home or self-care (01) ==
PROVIDERS: Emergency Medicine; Emergency Provider Emergency Medicine; PCP Family Medicine
DX: R10.9 Unspecified abdominal pain (principal); R07.9 Chest pain, unspecified; R11.2 Nausea with vomiting, unspecified; D64.9 Anemia, unspecified; Z87.891 Personal history of nicotine dependence; Z85.038 Personal history of other malignant neoplasm of large intestine; Z85.05 Personal history of malignant neoplasm of liver
CPT/HCPCS: 71045; 74177; 80053; 81003; 83690; 84484; 85025; 93005; 96374; 96375; 96376; 99285; J1170; J2405; J2765; J3010; Q9967

== ENCOUNTER 2023-03-28 15:38 | Inpatient (IN) | payer MEDICAID, SELFPAY ==
[2023-03-28] VITALS (7 sets, daily range): BP systolic 113–133; BP diastolic 74–88; PULSE 103–108; RESP 10–26; TEMP 36.4–37; O2SAT 95–99
--- NOTE | 2023-03-28 16:11 | XRR_ITS ---
PROCEDURE INFORMATION: Exam: XR Chest Exam date and time: 03/28/2023 4:49 PM Age: 53 years old Clinical indication: Shortness of breath; Prior surgery; Surgery date: 6+ months; Surgery type: Port; Patient HX: HX of colon cancer; Additional info: S0b TECHNIQUE: Imaging protocol: Radiologic exam of the chest. Views: 1 view. COMPARISON: CR (CHEST, ) 03/19/2023 7:58 PM FINDINGS: Tubes, catheters and devices: Left subclavian central venous catheter or port remains in good position with prior exam, with tip at the level of the right atrium. Overlying monitor leads. Lungs: Mild chronic bronchiectasis medial lower left lung. No focal infiltrate or consolidation. No suspicious nodule or mass. Pleural spaces: Unremarkable. No pleural effusion. No pneumothorax. Heart/Mediastinum: Unremarkable. No cardiomegaly. Bones/joints: Visualized osseous structures show no acute abnormality. Organs: Suggestion of cholecystectomy clips in the upper right abdomen. XR/XR chest 1V portable [id number] IMPRESSION: No acute cardiopulmonary abnormality.
[2023-03-28 16:47] LABS: Add Urine Microscopic? NO; Charge for UA Resulting for Rev
[2023-03-28 17:00] LABS: Bilirubin Urine Neg (Negative); Blood Urine Neg (Negative); Glucose Urine UA Norm (Normal); Ketones Urine Negative (Negative); Leukocyte Esterase Urine Negative (Negative); Nitrate Urine Negative (Negative); Protein Urine Neg (Negative); Urine Appearance Clear (CLEAR); Urine Color Yellow (Yellow); Urobilinogen Urine Norm (Negative); pH Urine 6.5 (5-7)
[2023-03-28 17:05] LABS: Basophils % 0.4 %; Eosinophils % 0.2 %; Hematocrit 41.2 % (37.0-47.0); Hemoglobin 12.4 g/dL (11.5-15.3); Lymphocytes # 0.7 10^3/uL (0.8-4.8); Lymphocytes % 13.5 %; Mean Corpuscular HGB Conc 30.1 g/dL (30.0-36.0); Mean Corpuscular Hemoglobin 28.3 pg (28.0-34.0); Mean Corpuscular Volume 94.1 fl (81-99); Mean Platelet Volume 9.9 fL (7.4-10.4); Monocytes % 0.8 %; Neutrophils # 4.29 10^3/uL (1.8-7.7); Neutrophils % 84.9 %; Nucleated Red Blood Cells % 0 %; Platelet Count 215 10^3/cmm (130-400); Red Blood Count 4.38 10^6/uL (4.1-5.3); Red Cell Distribution Width 14.9 % (12.1-15.1); White Blood Count 5.1 10^3/uL (4.0-10.0)
[2023-03-28 17:20] LABS: Alanine Aminotransferase 46 U/L (0-33); Albumin Level 3.9 g/dL (3.5-5.2); Alkaline Phosphatase 165 U/L (35-105); Anion Gap 18.8 (5-19); Aspartate Amino Transferase 89 U/L (0-32); Blood Urea Nitrogen 6 mg/dL (6-20); Calcium 10.1 mg/dL (8.5-10.5); Carbon Dioxide 21 mmol/L (22-29); Chloride 102 mmol/L (98-107); Glomerular Filtration Rate 168.3 mL/min (90-130); Glucose 159 mg/dL (65-115); NT Pro B Type Natriuretic Pept 36 pg/mL (0-125); Osmolality Calculated 287 mOsm/kg (285-295); Potassium 3.8 mmol/L (3.5-5.1); Sodium 138 mmol/L (136-145); Total Bilirubin 0.2 mg/dL (0.15-1.2); Total Protein 7.9 g/dL (6.6-8.7)
--- NOTE | 2023-03-28 17:47 | W.ED.SOB ---
HPI - SOB/Dyspnea General: Chief Complaint: Shortness of Breath/Dyspnea Stated Complaint: sent by Dr Mayberry/SOB Time Seen by Provider: 03/28/23 16:06 History of Present Illness: HPI Narrative: 53-year-old male with history of cancer presents emergency room today with shortness of breath. Patient further reviews that she was at the cancer center getting scheduled chemotherapy infusion and after the infusion she had a having shortness of breath. Patient was sent to the emergency room by Dr. Mayberry for further evaluation and treatment given the fact the patient had history of PEs in the past. Upon present emergency room patient denies any cough, coughing up blood or vomiting blood. Swelling no calf tenderness. Contact or recent foreign travel. Associated symptoms: Deny chest congestion or hemoptysis Review of Systems General: Reports: 10 or more systems reviewed and unremarkable except in HPI and below Resp: Reports: dyspnea; Denies: non-productive cough, wheezing, stridor, pain on inspiration, change in phlegm color, hemoptysis, chest congestion or other PFSH ED PFSH: Medical History Bleeding per rectum Cancer related pain Chronic anticoagulation Colon cancer Colon cancer metastasized to liver Diverticulitis 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 Family History Other CAD (coronary artery disease) Cancer Hyperlipidemia Hypertension Lung disease Psychiatric illness Stroke Denies family history of Diabetes Clotting disorder Dementia Chronic kidney disease (CKD) Suicide Anesthesia complication Bleeding disorder Social History Smoking and tobacco status: former smoker Quit status (tobacco): has quit using tobacco Year quit tobacco: August 2022 Former quit date comment: smoked x 10 years Alcohol intake: never Physical Exam Const: COMMON NORMALS: no acute distress, average body habitus, patient oriented x3, no limitations, healthy appearing, alert and well nourished HENMT: COMMON NORMALS: normocephalic, atraumatic, hearing grossly normal bilaterally, external ears normal, EAC's normal, TM's normal bilaterally, Normal external nose present, Normal nasal mucous membranes and turbinates present, moist oral mucous membranes, oropharynx normal, dentition normal and gingiva normal HEAD & SCALP: normocephalic and atraumatic NOSE: Normal external nose present and Normal nasal mucous membranes and turbinates present EXTERNAL EAR: Yes external ears normal EXTERNAL AUDITORY CANAL: EAC's normal TYMPANIC MEMBRANE: TM's normal bilaterally Eye: COMMON NORMALS: Equal, round and reactive pupils present, EOMs intact bilaterally, conjunctivae normal, no scleral icterus, no papilledema, normal visual teixeira by confrontation and fundi normal bilaterally CONJUNCTIVA: Yes conjunctivae normal PUPIL: Yes Equal, round and reactive pupils present DIRECT OPHTHALMOSCOPY: Yes no papilledema and Yes fundi normal bilaterally Neck/C-Spine: COMMON NORMALS: no JVD Resp: COMMON NORMALS: normal respiratory effort, No retractions and No use of accessory muscles EFFORT & INSPECTION: Yes able to speak in complete sentences, No tachypneic, No respiratory distress, No decreased respiratory effort, No pursed lip breathing, No labored, No grunting, No stridor, No Actively coughing and No retractions Cardio: COMMON NORMALS: no JVD, regular rate, regular rhythm, S1 normal heart sound present, S2 normal heart sound present, No gallops present (Cardio), No clicks present (Cardio), No murmurs present (Cardio), No rub (Cardio) and Peripheral pulses 2+ throughout RATE: regular rate and tachycardic RHYTHM: regular rhythm HEART SOUNDS: S1 normal heart sound present and S2 normal heart sound present PERIPHERAL PULSES: Peripheral pulses 2+ throughout GI: COMMON NORMALS: Normal to inspection, nondistended, normoactive bowel sounds present, Soft to palpation, non-tender, No hepatosplenomegaly present, no masses and no bruits PALPATION: Yes Soft to palpation and Yes No hepatosplenomegaly present Extremity: GENERAL: Yes normal exam except as noted Neuro: COMMON NORMALS: patient oriented x3 SENSORIUM/ORIENTATION: Yes alert Skin: COMMON NORMALS: no rashes or lesions noted GENERAL SKIN EXAM: no rashes or lesions noted Course Reevaluation(s): Reevaluation #1: Discussed patient with Dr. Mayberry and he was requesting CT scanning of chest to rule out PE. Vital Signs: Vital signs: Vital Signs Temperature 97.7 F 03/30/23 00:00 Pulse Rate 68 03/30/23 00:00 Respiratory Rate 18 03/30/23 00:00 Blood Pressure 112/74 03/30/23 00:00 Pulse Oximetry 97 03/30/23 00:00 Oxygen Delivery Me thod Room Air 03/30/23 00:00 MDM - SOB/Dyspnea Medical Decision Making Patient made comfortable emergency room. Patient had extensive work-up done including CBC, CMP, BNP, and CT scan of his chest. Discussed labs and CT finding with both patient and family at bedside. Danielle patient with hospitalist. She will be admitted for further evaluation and treatment. Patient was given multiple doses of IV pain medication. Differential Diagnosis Likely acute exacerbation of chronic obstructive airways disease, congestive heart failure, community acquired pneumonia, asthma with exacerbation and pulmonary embolism Lab Data 03/29/23 05:14 03/29/23 05:14 Labs/Radiology: Radiology Impressions Chest X-Ray 03/28/23 16:11 IMPRESSION: No acute cardiopulmonary abnormality. Chest CTA 03/28/23 17:49 IMPRESSION: 1. Interval decrease in partial filling defect distal left main pulmonary artery previous exam suggesting interval improvement in left pulmonary artery embolus, though incompletely resolved. 2. Stable appearance of the chest otherwise with previous exam and particularly regarding lower left lung. No interval new or propagation of pulmonary emboli. No interval new infiltrate or effusion. COMMENTS: In the absence of a history or active diagnosis of lung cancer, it is recommended that this patient with emphysema be evaluated for enrollment in a low dose CT lung cancer screening program. Laboratory Results WBC 5.1 10^3/uL (4.0-10.0) 03/28/23 16:36 RBC 4.38 10^6/uL (4.1-5.3) 03/28/23 16:36 Hgb 12.4 g/dL (11.5-15.3) 03/28/23 16:36 Hct 41.2 % (37.0-47.0) 03/28/23 16:36 MCV 94.1 fl (81-99) D 03/28/23 16:36 MCH 28.3 pg (28.0-34.0) 03/28/23 16:36 MCHC 30.1 g/dL (30.0-36.0) D 03/28/23 16:36 RDW 14.9 % (12.1-15.1) 03/28/23 16:36 Plt Count 215 10^3/cmm (130-400) 03/28/23 16:36 MPV 9.9 fL (7.4-10.4) 03/28/23 16:36 Neut % (Auto) 84.9 % 03/28/23 16:36 Lymph % (Auto) 13.5 % 03/28/23 16:36 Stanton % (Auto) 0.8 % 03/28/23 16:36 Eos % (Auto) 0.2 % 03/28/23 16:36 Baso % (Auto) 0.4 % 03/28/23 16:36 Neut # (Auto) 4.29 10^3/uL (1.8-7.7) 03/28/23 16:36 Lymph # (Auto) 0.7 10^3/uL (0.8-4.8) L 03/28/23 16:36 Stanton # (Auto) 0.0 10^3/uL (0.2-0.9) L 03/28/23 16:36 Eos # (Auto) 0.0 10^3/uL (0.0-0.8) 03/28/23 16:36 Baso # (Auto) 0.0 10^3/uL (0.0-0.1) 03/28/23 16:36 Nucleated RBC % (auto) 0 % 03/28/23 16:36 Nucleated RBCs # 0.0 /100WBC 03/28/23 16:36 Sodium 138 mmol/L (136-145) 03/28/23 16:36 Potassium 3.8 mmol/L (3.5-5.1) 03/28/23 16:36 Chloride 102 mmol/L (98-107) 03/28/23 16:36 Carbon Dioxide 21 mmol/L (22-29) L 03/28/23 16:36 Anion Gap 18.8 (5-19) 03/28/23 16:36 BUN 6 mg/dL (6-20) 03/28/23 16:36 Creatinine 0.4 mg/dL (0.5-0.9) L 03/28/23 16:36 GFR Calculation 168.3 mL/min (90-130) H 03/28/23 16:36 Glucose 159 mg/dL (65-115) H 03/28/23 16:36 Calculated Osmolality 287 mOsm/kg (285-295) 03/28/23 16:36 Calcium 10.1 mg/dL (8.5-10.5) 03/28/23 16:36 Total Bilirubin 0.2 mg/dL (0.15-1.2) 03/28/23 16:36 AST 89 U/L (0-32) H 03/28/23 16:36 ALT 46 U/L (0-33) H 03/28/23 16:36 Alkaline Phosphatase 165 U/L (35-105) H 03/28/23 16:36 Troponin T Baseline 7 ng/L (0-10) 03/28/23 20:49 NT-Pro-B Natriuret Pep 36 pg/mL (0-125) 03/28/23 16:36 Total Protein 7.9 g/dL (6.6-8.7) 03/28/23 16:36 Albumin 3.9 g/dL (3.5-5.2) 03/28/23 16:36 Globulin 4.0 g/dL (1.3-4.6) 03/28/23 16:36 Procalcitonin 0.05 ng/mL (0-0.5) 03/28/23 20:49 Urine Color Yellow (Yellow) 03/28/23 16:13 Urine Appearance Clear (CLEAR) 03/28/23 16:13 Urine pH 6.5 (5-7) 03/28/23 16:13 Ur Specific Grayling 1.010 (1.005-1.030) 03/28/23 16:13 Urine Protein Neg (Negative) 03/28/23 16:13 Urine Glucose (UA) Norm (Normal) 03/28/23 16:13 Urine Ketones Negative (Negative) 03/28/23 16:13 Urine Blood Neg (Negative) 03/28/23 16:13 Urine Nitrate Negative (Negative) 03/28/23 16:13 Urine Bilirubin Neg (Negative) 03/28/23 16:13 Urine Urobilinogen Norm mg/dL (Negative) 03/28/23 16:13 Ur Leukocyte Esterase Negative (Negative) 03/28/23 16:13 Discharge Plan Discharge Patient Disposition: Placed in Observation Admit Provider: Jocelyn Isidro Clinical Impression: Pulmonary embolism, Colon cancer, Acute dyspnea, Atrial tachycardia Coding Level of Care Code ED 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
--- NOTE | 2023-03-28 17:49 | CTR_ITS ---
PROCEDURE INFORMATION: Exam: CTA Chest With Contrast Exam date and time: 03/28/2023 7:11 PM Age: 53 years old Clinical indication: Shortness of breath; Prior surgery; Surgery date: 6+ months; Surgery type: Port; Additional info: SOB TECHNIQUE: Imaging protocol: Computed tomographic angiography of the chest with contrast. Exam focused on the arteries. 3D rendering (Not supervised by radiologist): MIP and/or 3D reconstructed images were created by the technologist. Radiation optimization: All CT scans at this facility use at least one of these dose optimization techniques: automated exposure control; mA and/or kV adjustment per patient size (includes targeted exams where dose is matched to clinical indication); or iterative reconstruction. Contrast material: OMNI 350; Contrast volume: 100 ml; Contrast route: INTRAVENOUS (IV); REPORTING DATA: Count of CT and Cardiac NM exams in prior 12 months: This patient has received 12 known CTs and 0 known cardiac nuclear medicine studies in the 12 months prior to the current study. COMPARISON: CT angio chest PE protcl [id number] 02/26/2023 11:16 AM RADIATION DOSE METRICS: Total DLP (mGy-cm): 175.8 FINDINGS: Tubes, catheters and devices: Left chest port terminates in the right atrium stable with prior exam. Pulmonary arteries: Interval decrease in partial filling defect distal left main pulmonary artery from previous exam suggest interval improvement in left pulmonary artery embolus. Continued hypoenhancement within left lower lobe pulmonary artery branches stable with prior exam. No interval new pulmonary emboli. Aorta: Unremarkable. No aortic aneurysm. No aortic dissection. Lungs: Obstruction and expansion of multiple lower lobe bronchi again noted as seen with exam. This extends from the inferior left hilar level into the lower lung particularly medially. Continued findings of mild apical scarring and mild emphysematous change. Small amount of lower lung atelectasis/scarring. No interval new infiltrate. No interval new pulmonary nodule. No significant pleural effusion. No pneumothorax. Pleural spaces: See Lungs finding. Heart: Right to left ventricular ratio is approximally 1. No significant cardiomegaly. No significant coronary artery calcification. No pericardial effusion. Lymph nodes: Nonspecific lymph nodes within the mediastinum stable with prior exam. Bones/joints: Mild spondylotic change thoracic spine. Soft tissues: Unremarkable. CT/CT angio chest PE protcl [id number] IMPRESSION: 1. Interval decrease in partial filling defect distal left main pulmonary artery previous exam suggesting interval improvement in left pulmonary artery embolus, though incompletely resolved. 2. Stable appearance of the chest otherwise with previous exam and particularly regarding lower left lung. No interval new or propagation of pulmonary emboli. No interval new infiltrate or effusion. COMMENTS: In the absence of a history or active diagnosis of lung cancer, it is recommended that this patient with emphysema be evaluated for enrollment in a low dose CT lung cancer screening program.
[2023-03-28] MEDS: morphine 4 mg/mL SDV 1 mL 2 MG IVP (18:48)
[2023-03-28] MEDS: iohexol 350 mg/mL 500 mL Btl (per mL) IV (19:16)
[2023-03-28] MEDS: HYDROmorphone 1 mg/mL INJ 1 mL 0.5 MG IVP (20:20)
--- NOTE | 2023-03-28 20:51 | ECG_ITS ---
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 Measurements Intervals [place] Rate: 106 P: 41 HI: 168 QRS: 44 QRSD: 72 T: 60 QT: 352 QTc: 467 Interpretive Statements SINUS TACHYCARDIA ABNORMAL RHYTHM ECG Compared to ECG 03/19/2023 19:40:58 Sinus rhythm no longer present ST (T wave) deviation no longer present Electronically Signed On 03-29-2023 3:49:31 CDT by Julissa Quiros M.D. [id number]
--- NOTE | 2023-03-28 20:59 | P.HP_ITS ---
Providers/Chief Complaint Primary Care Provider: Clarice Perez MD Chief Complaint: sent by Dr Mayberry/ALEX History of Present Illness Judi Lam is a 53 year old female with poorly differentiated adenoca of sigmoid colon s/p initial sigmoid stenting followed by partial colectomy with a diverting colostomy left lower quadrant on sep 2022. She receievd prolonged course of abx between aug-october 2022 for multiple intraabdominal abscess from cecal perfortaion.? She is currently on palliative chemotherapy with FOLFOX? started on December 21, 2022. Disease course complicated by development of PE on January 04, 2023 for which she was? on Eliquis, this was transitioned to therapeutic Lovenox in February when increased clot burden was noted on CTA chest, patient had bronchoscopy done for mucus clogging, presented from hematology clinic today for worsening of shortness of breath in the ER CT chest revealed improvement in clot burden however patient is tachypneic and tachycardic. Hospital service has been requested to admit the patient, please note she had hematochezia as well in the past endoscopy colonoscopy was not recommended because of increased clot burden at that point by Marcos, bronchial studies did not show any sign of malignancy At the time of evaluation patient is comfortable breathing 16 breaths/min heart rate 107 She is not complaining of active chest pain endorsing shortness of breath however apparently looks comfortable is at the bedside Afebrile Patient is stating that every time she goes for chemo she gets short of breath and tachypneic afterwards and then it gets better she does not experience diarrhea but gets nauseous Review of Systems 2 Const: Reports: chills; Denies: fever(s) Eyes: Denies: change in vision ENMT: Denies: throat pain Card: Denies: chest pain Resp: Reports: dyspnea GI: Reports: nausea : Denies: flank pain Musc: Reports: back pain Skin/Breast: Denies: rash Medications/Allergies Home Medications Medication Instructions Recorded Confirmed Last Taken Type naloxone 4 mg/actuation nasal spray 4 mg intranasal Q2M PRN Opiate 09/25/22 03/28/23 Unknown History Reversal lorazepam 1 mg tablet 0.5 - 1 mg PO Q6H PRN Severe 02/04/23 03/28/23 Unknown Rx Nausea #30 tabs lidocaine-prilocaine 2.5 %-2.5 % See Rx Instructions .Route .COMPLEX 02/14/23 03/28/23 03/28/23 History topical cream montelukast 10 mg tablet 10 mg PO QAM 02/14/23 03/28/23 03/28/23 History (Singulair) potassium chloride 20 mEq 20 meq PO QAM 02/22/23 03/28/23 02/25/23 History tablet,extended release albuterol sulfate 90 mcg/actuation 2 inh inhalation Q8H PRN shortness 02/24/23 03/28/23 Unknown Rx aerosol inhaler of breath or wheezing #8.5 grams ondansetron HCl 4 mg tablet 4 mg PO Q8H PRN Nausea And Vomiting 02/26/23 03/28/23 03/28/23 History morphine 60 mg tablet,extended 60 mg PO Q12H 30 days #60 tabs 03/02/23 03/28/23 03/28/23 Rx release enoxaparin 60 mg/0.6 mL 60 mg (0.6 mL) .Route Q12H 3 03/11/23 03/28/23 03/28/23 Rx subcutaneous syringe months #108 mL Allergies Allergy/AdvReac Type Severity Reaction Status Date / Time tramadol [From Ultram] Allergy ALGY-Anaphy Verified 03/28/23 15:43 laxis PFSH Acute PFSH: Medical History Bleeding per rectum Cancer related pain Chronic anticoagulation Colon cancer Colon cancer metastasized to liver Diverticulitis 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 Family History Other CAD (coronary artery disease) Cancer Hyperlipidemia Hypertension Lung disease Psychiatric illness Stroke Denies family history of Diabetes Clotting disorder Dementia Chronic kidney disease (CKD) Suicide Anesthesia complication Bleeding disorder Social History Smoking and tobacco status: former smoker Quit status (tobacco): has quit using tobacco Year quit tobacco: August 2022 Former quit date comment: smoked x 10 years Alcohol intake: never Vitals/I&O/Wt Last Vital Signs Temp 97.5 F L 03/28/23 15:43 Pulse 108 H 03/28/23 19:52 Resp 24 H 03/28/23 20:20 BP 133/83 03/28/23 19:52 Pulse Ox 98 03/28/23 20:20 O2 Del Method Room Air 03/28/23 17:41 Weight last 48 hrs Weight 53.07 kg Physical Exam Narrative: Cachectic malnourished female Breathing 16 breaths/min Heart rate 107 sinus tachycardia Clinically looks dehydrated GCS 15 Awake and alert at the bedside Patient not requiring oxygen at all She is on room air Mild rhonchi bilaterally noted No active cough or chest pain S1, S2 sinus tachycardia Data 03/28/23 16:36 03/28/23 16:36 Micro: Microbiology 03/28/23 16:44 Blood Culture - Preliminary Blood SPECIMEN COLLECTED 03/28/23 16:36 Blood Culture - Preliminary Blood SPECIMEN COLLECTED A&P Assessment and plan (1) Acute dyspnea: (2) Atrial tachycardia: (3) Exertional dyspnea: (4) Pulmonary embolism: (5) Colon cancer: Plan Sinus tachycardia along tachypnea Patient is stating that she normally gets short of breath and tachypneic after her chemotherapy session which gets better PE seems to be getting better no increased clot burden noticed on CT chest I will continue her therapeutic Lovenox I will continue her morphine and anxiolytics Patient is emotional labile I did tell the patient that there is no pneumonia there is no need for antibiotics at this point we will add Mucinex and budesonide No active chest pain Trend troponin with serial EKG Full code Cardiac diet Anticipating discharge tomorrow if she is feeling better She did not qualify for oxygen on previous visit as well She supposed to see Dr. Cota in upcoming week Attestations Medical Necessity Statement*: Anticipating discharge tomorrow, her stay is anticipated to be less than 40 hours Diagnoses Acute dyspnea R06.00 Atrial tachycardia I47.1 Exertional dyspnea R06.09 Pulmonary embolism I26.99 Colon cancer C18.9
[2023-03-28] MEDS: methylPREDNISolone sod succ 60 MG in water for injection-sterile 0.96 ML 11.52 MG IVP (21:11)
[2023-03-28 21:16] LABS: Troponin(5th) Baseline 7 ng/L (0-10)
[2023-03-28 21:34] LABS: Procalcitonin 0.05 ng/mL (0-0.5)
[2023-03-28] MEDS: morphine ER (12 HR) 30 mg tablet 60 MG PO (22:52)
[2023-03-28] MEDS: enoxaparin 60 mg/0.6 mL Syringe SUBCUT (22:55)
[2023-03-28 23:16] LABS: Troponin 5 2HR 6.19 ng/L (0-10); Troponin 5 2HR Delta -0.81 ABS# (0-10)
[2023-03-29] VITALS (16 sets, daily range): BP systolic 110–136; BP diastolic 72–91; PULSE 66–109; RESP 14–20; TEMP 36.2–36.9; O2SAT 95–99
[2023-03-29 00:01] LABS: Vitamin B12 615 pg/mL (232-1245)
[2023-03-29 00:52] LABS: Adenovirus Not Detected (NOT DETECT); Chlamydia Pneumoniae Not Detected (NOT DETECT); Coronavirus 229E,HKU1,NL63,OC4 Not Detected (NOT DETECT); Human Metapneumovirus Not Detected (NOT DETECT); Human Rhinovirus/Enterovirus Not Detected (NOT DETECT); Influenza A Not Detected (NOT DETECT); Influenza A H1 Not Detected (NOT DETECT); Influenza A H1-2009 Not Detected (NOT DETECT); Influenza A H3 Not Detected (NOT DETECT); Influenza B Not Detected (NOT DETECT); Mycoplasma Pneumoniae Not Detected (NOT DETECT); Parainfluenza Virus Type 1 Not Detected (NOT DETECT); Parainfluenza Virus Type 2 Not Detected (NOT DETECT); Parainfluenza Virus Type 3 Not Detected (NOT DETECT); Parainfluenza Virus Type 4 Not Detected (NOT DETECT); Respiratory Syncytial Virus A Not Detected (NOT DETECT); Respiratory Syncytial Virus B Not Detected (NOT DETECT); SARS-COV-2 Not Detected (NOT DETECT)
[2023-03-29] MEDS: HYDROmorphone 1 mg/mL INJ 1 mL 0.5 MG IVP (02:06)
[2023-03-29] MEDS: LORazepam 1 mg Tablet 0.5 MG PO ×3 (02:09→21:16)
[2023-03-29] MEDS: oxyCODONE 5 mg IR Tab/Cap 10 MG PO ×2 (04:16→08:47)
[2023-03-29] MEDS: potassium chloride ER 20 mEq Tablet PO (05:16)
[2023-03-29] MEDS: montelukast sodium 10 mg Tablet PO (05:17)
[2023-03-29 05:44] LABS: Hematocrit 33.7 % (37.0-47.0); Hemoglobin 10.6 g/dL (11.5-15.3); Lymphocytes # 0.7 10^3/uL (0.8-4.8); Lymphocytes % 16.3 %; Mean Corpuscular HGB Conc 31.5 g/dL (30.0-36.0); Mean Corpuscular Volume 92.3 fl (81-99); Mean Platelet Volume 9.8 fL (7.4-10.4); Monocytes # 0.1 10^3/uL (0.2-0.9); Monocytes % 2.9 %; Neutrophils # 3.66 10^3/uL (1.8-7.7); Neutrophils % 80.4 %; Nucleated Red Blood Cells % 0 %; Platelet Count 212 10^3/cmm (130-400); Red Blood Count 3.65 10^6/uL (4.1-5.3); White Blood Count 4.6 10^3/uL (4.0-10.0)
[2023-03-29 06:05] LABS: Anion Gap 14.6 (5-19); Blood Urea Nitrogen 8 mg/dL (6-20); Calcium 9.3 mg/dL (8.5-10.5); Carbon Dioxide 23 mmol/L (22-29); Chloride 103 mmol/L (98-107); Glomerular Filtration Rate 130.1 mL/min (90-130); Glucose 133 mg/dL (65-115); Magnesium 1.9 mg/dL (1.7-2.3); Osmolality Calculated 282 mOsm/kg (285-295); Phosphorus 2.6 mg/dL (2.5-4.5); Potassium 4.6 mmol/L (3.5-5.1); Sodium 136 mmol/L (136-145)
[2023-03-29 08:45] LABS: ABG PCO2 36.6 mmHg (35-45); ABG PH Result 7.44 (7.35-7.45); Arterial Blood Gas Hematocrit 34.2 % (37-47); Base Excess ABG 0.6 mmol/L (-2.0-2.0); Blood Gas Allen Test Pos; Blood Gas Operator Identificat WALCI; Blood Gas Sample Site Radial, right; Blood Gas Sample Type Arterial; HCO3 ABG 24.6 mmol/L (22-26); Oxygen Device ROOM AIR; PO2 ABG 84.3 mmHg (80.0-100.0)
--- NOTE | 2023-03-29 09:36 | PC.CHAP ---
Pastoral Care Encounter/Spiritual Assessment Type of Contact [x] Declined rebeamer visit [] Patient/Family/Request visit [] Outpatient visit [] Follow-up visit [] Physician referral [] Code/Alert [] Routine visit [] Staff referral [] Actively dying [] Patient sleeping [] Family support [] [] Out of room [] Palliative care [] [] Receiving care in room [] Pre-surgical visit [] Trauma [] Long length of stay [] ICU visit [] Other: Relational/Emotional Strength [] Patient feels connected with others/family/visitors/staff [x] Distress [] Loneliness/isolation [] Abandonment Spirituality of Patient [] Person of Margaret [] Attends Mandaen of their Margaret [] Believes in Prayer [] Reads Bible or Temple materials [] There are Spiritual issues to be addressed Gymnastics Instructor Interventions [] Prayer [] Active listening [x] Non-anxious presence [] Spiritual/emotional support [] Crisis/trauma care [] Spiritual counseling [] Bereavement support [] Provided bereavement packet [] Provided Bible/devotional materials [] Provided toy/stuffed animal, coloring book to patient or family member [] Provided Communion [] Anointing/[place] [] Salvation [] Completed spiritual assessment [] Other: Impact on Illness or Injury [] Angry [] Fearful [x] Anxious [] Often cries [] Exhaustion [] Unable to work [] Unable to attend oriental orthodox [] Unable to walk/stand [] Unable to read [] Unable to drive [] Unable to eat/drink [] Unable to sleep [] Unable to be with family [] Patient intubated [x] Other: extreme crying Summary Time spent with patient Very brief, will make sure there is follow-up
[2023-03-29] MEDS: cefTRIAXone 1,000 MG in sodium chloride 0.9% (plus) 50 ML 100 MG IV (10:33)
[2023-03-29] MEDS: methylPREDNISolone sod succ 40 MG in water for injection-sterile 1 ML 12 MG IVP ×2 (10:33→21:30)
[2023-03-29] MEDS: morphine ER (12 HR) 30 mg tablet 60 MG PO ×2 (10:34→21:28)
[2023-03-29] MEDS: enoxaparin 60 mg/0.6 mL Syringe SUBCUT ×2 (10:53→21:28)
[2023-03-29] MEDS: azithromycin 500 MG in sodium chloride 0.9% 250 ML 250 MG IV (11:15)
[2023-03-29] MEDS: ondansetron 2 mg/ML SDV 2 mL 4 MG IVP (12:31)
[2023-03-29] MEDS: morphine IR 15 mg Tablet PO ×2 (14:54→19:58)
--- NOTE | 2023-03-29 17:24 | P.PN_ITS ---
Subjective Subjective: Patient was seen this morning, at bedside, she is in severe pain, she tells me that she has been given her home morphine, and we went over her doses, and I called [facility], patient takes morphine 60 mg extended release every 12 hours, then she takes immediate release morphine 15 mg p.o. every 4 hours as needed, through Dr. Mayberry's and Dr. Jacobs's office, she does report shortness of breath and wheezing, no fevers, no chills, does report a cough Vitals/I&O/Wt Last Vital Signs Temp 97.1 F L 03/29/23 16:00 Pulse 66 03/29/23 16:00 Resp 20 H 03/29/23 16:00 BP 118/74 03/29/23 16:00 Pulse Ox 99 03/29/23 16:00 O2 Del Method Room Air 03/29/23 16:00 03/29/23 03/29/23 03/29/23 06:59 14:59 22:59 Intake Total 300 / 300.96 421 / 421 480 / 901 Balance 300 / 300.96 421 / 421 480 / 901 Weight last 48 hrs Weight 53.07 kg Physical Exam Const: COMMON NORMALS: no acute distress and patient oriented x3 Resp: COMMON NORMALS: normal respiratory effort, No retractions and No use of accessory muscles AUSCULTATION: wheezes Cardio: COMMON NORMALS: regular rate, regular rhythm, S1 normal heart sound present and S2 normal heart sound present RATE: regular rate RHYTHM: regular rhythm HEART SOUNDS: S1 normal heart sound present and S2 normal heart sound present GI: COMMON NORMALS: Normal to inspection, nondistended, normoactive bowel sounds present and non-tender Extremity: COMMON NORMALS: no pedal edema Neuro: COMMON NORMALS: patient oriented x3 Psych: COMMON NORMALS: mental status grossly normal Data 03/29/23 05:14 03/29/23 05:14 Micro: Microbiology 03/28/23 16:44 Blood Culture - Preliminary Blood NEGATIVE TO DATE 03/28/23 16:36 Blood Culture - Preliminary Blood NEGATIVE TO DATE A&P Assessment and plan (1) Acute dyspnea: (2) Atrial tachycardia: (3) Exertional dyspnea: (4) Pulmonary embolism: (5) Colon cancer: (6) Asthma exacerbation: (7) Respiratory tract infection: Plan Acute dyspnea likely asthma exacerbation does have a history of smoking, but no active smoking, Solu-Medrol 40 IV every 8 hours She does have a history of pneumonia, postobstructive pneumonia, this CT angiogram does not show any radiographic evidence of pneumonia, reports a produ ctive cough, with shortness of breath, he is immunocompromise, will start on Rocephin azithromycin Patient is stating that she normally gets short of breath and tachypneic after her chemotherapy session which gets better PE seems to be getting better no increased clot burden noticed on CT chest I will continue her therapeutic Lovenox I will continue her morphine and anxiolytics Mucinex and budesonide No active chest pain Trend troponin with serial EKG Full code Cardiac diet Anticipating discharge tomorrow if she is feeling better She did not qualify for oxygen on previous visit as well She supposed to see Dr. Cota in upcoming week Attestations Medical Necessity Statement*: Patient requires hospitalization for asthma exacerbation, respiratory tract infection, shortness of breath, Coding Level of Care Code Acute Code for [facility] Diagnoses Acute dyspnea R06.00 Atrial tachycardia I47.1 Exertional dyspnea R06.09 Pulmonary embolism I26.99 Colon cancer C18.9 Asthma exacerbation J45.901 Respiratory tract infection J98.8
--- NOTE | 2023-03-29 17:32 | PC.PT ---
Patient seen here 01/06/2023, instructed in home exercise program, and continues with this as able Patient seen here again 02/22/2023, and remains independent with transfers and ambulation with rollator style walker, patient helpful spouse assists as needed. Patient seen today, with spouse present, patient sitting up in bed, but nauseous at this time, and her nurse alerted as well by this therapist, patient and spouse state patient continues independently with transfers and ambulation with rollator style walker, and both feel she is safe with this, and have no needs at this time, patient stating independent toileting this a.m., requested that they alert me, or physical therapy staff should further needs arise, and they are agreeable to same, no further visits planned at this time.
[2023-03-29 19:55] LABS: Adenovirus Not Detected (NOT DETECT); Chlamydia Pneumoniae Not Detected (NOT DETECT); Coronavirus 229E,HKU1,NL63,OC4 Not Detected (NOT DETECT); Human Metapneumovirus Not Detected (NOT DETECT); Human Rhinovirus/Enterovirus Not Detected (NOT DETECT); Influenza A Not Detected (NOT DETECT); Influenza A H1 Not Detected (NOT DETECT); Influenza A H1-2009 Not Detected (NOT DETECT); Influenza A H3 Not Detected (NOT DETECT); Influenza B Not Detected (NOT DETECT); Mycoplasma Pneumoniae Not Detected (NOT DETECT); Parainfluenza Virus Type 1 Not Detected (NOT DETECT); Parainfluenza Virus Type 2 Not Detected (NOT DETECT); Parainfluenza Virus Type 3 Not Detected (NOT DETECT); Parainfluenza Virus Type 4 Not Detected (NOT DETECT); Respiratory Syncytial Virus A Not Detected (NOT DETECT); Respiratory Syncytial Virus B Not Detected (NOT DETECT); SARS-COV-2 Not Detected (NOT DETECT)
[2023-03-29] MEDS: magnesium hydroxide 30 mL UDC PO (19:59)
[2023-03-30] VITALS (17 sets, daily range): BP systolic 99–123; BP diastolic 61–83; PULSE 63–107; RESP 16–20; TEMP 36.3–36.7; O2SAT 97–100
[2023-03-30 05:00] LABS: Hemoglobin 9.9 g/dL (11.5-15.3); Lymphocytes # 0.9 10^3/uL (0.8-4.8); Lymphocytes % 14.5 %; Mean Corpuscular HGB Conc 30.9 g/dL (30.0-36.0); Mean Corpuscular Hemoglobin 28.8 pg (28.0-34.0); Mean Platelet Volume 9.8 fL (7.4-10.4); Monocytes # 0.4 10^3/uL (0.2-0.9); Monocytes % 6.6 %; Neutrophils # 4.74 10^3/uL (1.8-7.7); Neutrophils % 78.4 %; Nucleated Red Blood Cells % 0 %; Platelet Count 194 10^3/cmm (130-400); Red Blood Count 3.44 10^6/uL (4.1-5.3); Red Cell Distribution Width 15.2 % (12.1-15.1); White Blood Count 6.1 10^3/uL (4.0-10.0)
[2023-03-30] MEDS: morphine IR 15 mg Tablet PO ×4 (05:11→21:42)
[2023-03-30] MEDS: montelukast sodium 10 mg Tablet PO (05:12)
[2023-03-30] MEDS: potassium chloride ER 20 mEq Tablet PO (05:13)
[2023-03-30] MEDS: LORazepam 1 mg Tablet 0.5 MG PO ×3 (05:16→18:32)
[2023-03-30 05:43] LABS: Anion Gap 13.4 (5-19); Blood Urea Nitrogen 13 mg/dL (6-20); Carbon Dioxide 25 mmol/L (22-29); Chloride 106 mmol/L (98-107); Glomerular Filtration Rate 168.3 mL/min (90-130); Glucose 127 mg/dL (65-115); Osmolality Calculated 290 mOsm/kg (285-295); Potassium 5.4 mmol/L (3.5-5.1); Sodium 139 mmol/L (136-145)
[2023-03-30] MEDS: sennosides-docusate Tablet 1 TAB PO (08:33)
[2023-03-30] MEDS: ipratropium-albuterol 3 mL Neb INHALATION (09:31)
[2023-03-30] MEDS: morphine ER (12 HR) 30 mg tablet 60 MG PO ×2 (09:40→21:43)
[2023-03-30] MEDS: methylPREDNISolone sod succ 40 MG in water for injection-sterile 1 ML 12 MG IVP ×2 (09:41→22:11)
[2023-03-30] MEDS: cefTRIAXone 1,000 MG in sodium chloride 0.9% (plus) 50 ML 100 MG IV (09:43)
[2023-03-30] MEDS: enoxaparin 60 mg/0.6 mL Syringe SUBCUT ×2 (10:03→21:41)
[2023-03-30] MEDS: azithromycin 500 MG in sodium chloride 0.9% 250 ML 250 MG IV (11:34)
[2023-03-30] MEDS: ondansetron 2 mg/ML SDV 2 mL 4 MG IVP (12:16)
--- NOTE | 2023-03-30 14:40 | P.PN_ITS ---
Subjective Subjective: Was seen this morning, she denies any fevers, no chills, does report shortness of breath, does report cough, her pain is well controlled Vitals/I&O/Wt Last Vital Signs Temp 97.6 F 03/30/23 12:00 Pulse 107 H 03/30/23 12:00 Resp 19 H 03/30/23 12:00 BP 120/83 03/30/23 12:00 Pulse Ox 100 03/30/23 12:00 O2 Del Method Room Air 03/30/23 09:31 03/29/23 03/30/23 03/30/23 22:59 06:59 14:59 Intake Total 721 / 1142 541 / 541 Balance 721 / 1142 541 / 541 Weight last 48 hrs Weight 53.07 kg Physical Exam Const: COMMON NORMALS: no acute distress and patient oriented x3 Resp: COMMON NORMALS: normal respiratory effort, No retractions, No use of accessory muscles and clear to auscultation bilaterally AUSCULTATION: clear to auscultation bilaterally Cardio: COMMON NORMALS: regular rate, regular rhythm, S1 normal heart sound present and S2 normal heart sound present RATE: regular rate RHYTHM: regular rhythm HEART SOUNDS: S1 normal heart sound present and S2 normal heart sound present GI: COMMON NORMALS: Normal to inspection, nondistended, normoactive bowel sounds present and non-tender Extremity: COMMON NORMALS: no pedal edema Neuro: COMMON NORMALS: patient oriented x3 Psych: COMMON NORMALS: mental status grossly normal Data 03/30/23 04:47 03/30/23 04:47 Micro: Microbiology 03/28/23 16:44 Blood Culture - Preliminary Blood NEGATIVE TO DATE 03/28/23 16:36 Blood Culture - Preliminary Blood NEGATIVE TO DATE A&P Assessment and plan (1) Acute dyspnea: (2) Atrial tachycardia: (3) Exertional dyspnea: (4) Pulmonary embolism: (5) Colon cancer: (6) Asthma exacerbation: (7) Respiratory tract infection: Plan Acute dyspnea likely asthma exacerbation does have a history of smoking, but no active smoking, Solu-Medrol 40 IV every 8 hours She does have a history of pneumonia, postobstructive pneumonia, this CT angiogram does not show any radiographic evidence of pneumonia, reports a productive cough, with shortness of breath, he is immunocompromise, continue with Rocephin azithromycin Patient is stating that she normally gets short of breath and tachypneic after her chemotherapy session which gets better PE seems to be getting better no increased clot burden noticed on CT chest I will continue her therapeutic Lovenox I will continue her morphine and anxiolytics Mucinex and budesonide No active chest pain Trend troponin with serial EKG Full code Cardiac diet Anticipating discharge tomorrow if she is feeling better She did not qualify for oxygen on previous visit as well She supposed to see Dr. Cota in upcoming week Continue Rocephin, continue azithromycin, continue IV antibiotics, Continue steroids Attestations Medical Necessity Statement*: Patient requires hospitalization for asthma exacerbation, respiratory tract infection Coding Level of Care Code Acute Code for [facility] Diagnoses Acute dyspnea R06.00 Atrial tachycardia I47.1 Exertional dyspnea R06.09 Pulmonary embolism I26.99 Colon cancer C18.9 Asthma exacerbation J45.901 Respiratory tract infection J98.8
[2023-03-30] MEDS: magnesium hydroxide 30 mL UDC PO (20:21)
[2023-03-31] VITALS (11 sets, daily range): BP systolic 113–125; BP diastolic 71–79; PULSE 65–80; RESP 16–18; TEMP 36.5–37; O2SAT 98–99
[2023-03-31] MEDS: morphine IR 15 mg Tablet PO ×2 (02:12→06:13)
[2023-03-31] MEDS: montelukast sodium 10 mg Tablet PO (05:05)
[2023-03-31] MEDS: potassium chloride ER 20 mEq Tablet PO (05:05)
[2023-03-31 05:53] LABS: Hematocrit 31.9 % (37.0-47.0); Hemoglobin 9.8 g/dL (11.5-15.3); Lymphocytes % 20.6 %; Mean Corpuscular HGB Conc 30.7 g/dL (30.0-36.0); Mean Corpuscular Hemoglobin 28.7 pg (28.0-34.0); Mean Corpuscular Volume 93.3 fl (81-99); Mean Platelet Volume 10.6 fL (7.4-10.4); Monocytes # 0.3 10^3/uL (0.2-0.9); Monocytes % 7.4 %; Neutrophils # 3.31 10^3/uL (1.8-7.7); Neutrophils % 71.8 %; Nucleated Red Blood Cells % 0 %; Platelet Count 189 10^3/cmm (130-400); Red Blood Count 3.42 10^6/uL (4.1-5.3); Red Cell Distribution Width 15.3 % (12.1-15.1); White Blood Count 4.6 10^3/uL (4.0-10.0)
[2023-03-31 06:12] LABS: Blood Urea Nitrogen 16 mg/dL (6-20); Calcium 8.7 mg/dL (8.5-10.5); Carbon Dioxide 27 mmol/L (22-29); Chloride 104 mmol/L (98-107); Glomerular Filtration Rate 234.5 mL/min (90-130); Glucose 120 mg/dL (65-115); Osmolality Calculated 284 mOsm/kg (285-295); Sodium 136 mmol/L (136-145)
[2023-03-31] MEDS: LORazepam 1 mg Tablet 0.5 MG PO (06:14)
[2023-03-31 06:20] LABS: Anion Gap 10.3 (5-19); Potassium 5.3 mmol/L (3.5-5.1)
[2023-03-31] MEDS: sennosides-docusate Tablet 1 TAB PO (08:56)
[2023-03-31] MEDS: methylPREDNISolone sod succ 40 MG in water for injection-sterile 1 ML IVP (10:56)
[2023-03-31] MEDS: enoxaparin 60 mg/0.6 mL Syringe SUBCUT (10:58)
[2023-03-31] MEDS: morphine ER (12 HR) 30 mg tablet 60 MG PO (10:58)
[2023-03-31] MEDS: cefTRIAXone 1,000 MG in sodium chloride 0.9% (plus) 50 ML 100 MG IV (10:58)
--- NOTE | 2023-03-31 11:40 | P.DS_ITS ---
Discharge Providers Date of Admission: 03/29/23 21:17 Date of Discharge: March 31, 2023 Attending Provider at Admission: Jocelyn Isidro MD Attending Provider at Discharge: Prince Garibay MD Primary Care Provider: Clarice Perez MD Diagnoses at Discharge Discharge Diagnosis (1) Acute dyspnea: Status: Acute (2) Atrial tachycardia: Status: Acute (3) Exertional dyspnea: Status: Acute (4) Pulmonary embolism: Status: Acute (5) Colon cancer: Status: Acute (6) Asthma exacerbation: Status: Acute (7) Respiratory tract infection: Status: Acute Reason for Visit Reason for Visit: sent by Dr Mayberry/SOB Hospital Course Hospital Course Judi Lam is a 53 year old female with poorly differentiated adenoca of sigmoid colon s/p initial sigmoid stenting followed by partial colectomy with a diverting colostomy left lower quadrant on sep 2022. She receievd prolonged course of abx between aug-october 2022 for multiple intraabdominal abscess from cecal perfortaion.? She is currently on palliative chemotherapy with FOLFOX? started on December 21, 2022. Disease course complicated by development of PE on January 04, 2023 for which she was? on Eliquis, this was transitioned to therapeutic Lovenox in February when increased clot burden was noted on CTA chest, patient had bronchoscopy done for mucus clogging, presented from hematology clinic today for worsening of shortness of breath in the ER CT chest revealed improvement in clot burden however patient is tachypneic and tachycardic.? Hospital service has been requested to admit the patient, please note she had hematochezia as well in the past endoscopy colonoscopy was not recommended because of increased clot burden at that point by Marcos, bronchial studies did not show any sign of malignancy Patient was admitted to [facility] for acute dyspnea secondary to asthma exacerbation, respiratory tract infection, received broad-spectrum antibiotic therapy, steroid therapy, overall clinically improved, discharged on p.o. or burst, doxycycline with close follow-up with primary care provider as outpatient Physical Exam Const: COMMON NORMALS: no acute distress and patient oriented x3 Resp: COMMON NORMALS: normal respiratory effort, No retractions, No use of accessory muscles and clear to auscultation bilaterally AUSCULTATION: clear to auscultation bilaterally Cardio: COMMON NORMALS: regular rate, regular rhythm, S1 normal heart sound present and S2 normal heart sound present RATE: regular rate RHYTHM: regular rhythm HEART SOUNDS: S1 normal heart sound present and S2 normal heart sound present GI: COMMON NORMALS: Normal to inspection, nondistended, normoactive bowel sounds present and non-tender Extremity: COMMON NORMALS: no pedal edema Neuro: COMMON NORMALS: patient oriented x3 Psych: COMMON NORMALS: mental status grossly normal Discharge Data Studies Completed and Pending Completed Studies During Hospitalization Category Date Time Status CT angio chest PE protcl [id number] Stat Cat Scan 03/28/23 17:49 Completed XR chest 1V portable [id number] Stat Exams 03/28/23 16:11 Completed Pending at discharge Category Date Time Status Basic Metabolic Panel AM LABS Lab 04/01/23 04:00 Ordered Blood Culture Stat Lab 03/28/23 16:44 Results Complete Blood Count w/Auto AM LABS Lab 04/01/23 04:00 Ordered Radiology Impressions Chest X-Ray 03/28/23 16:11 IMPRESSION: No acute cardiopulmonary abnormality. Chest CTA 03/28/23 17:49 IMPRESSION: 1. Interval decrease in partial filling defect distal left main pulmonary artery previous exam suggesting interval improvement in left pulmonary artery embolus, though incompletely resolved. 2. Stable appearance of the chest otherwise with previous exam and particularly regarding lower left lung. No interval new or propagation of pulmonary emboli. No interval new infiltrate or effusion. COMMENTS: In the absence of a history or active diagnosis of lung cancer, it is recommended that this patient with emphysema be evaluated for enrollment in a low dose CT lung cancer screening program. Laboratory Results WBC 4.6 10^3/uL (4.0-10.0) 03/31/23 05:03 RBC 3.42 10^6/uL (4.1-5.3) L 03/31/23 05:03 Hgb 9.8 g/dL (11.5-15.3) L 03/31/23 05:03 Hct 31.9 % (37.0-47.0) L 03/31/23 05:03 MCV 93.3 fl (81-99) 03/31/23 05:03 MCH 28.7 pg (28.0-34.0) 03/31/23 05:03 MCHC 30.7 g/dL (30.0-36.0) 03/31/23 05:03 RDW 15.3 % (12.1-15.1) H 03/31/23 05:03 Plt Count 189 10^3/cmm (130-400) 03/31/23 05:03 MPV 10.6 fL (7.4-10.4) H 03/31/23 05:03 Neut % (Auto) 71.8 % 03/31/23 05:03 Lymph % (Auto) 20.6 % 03/31/23 05:03 [place] % (Auto) 7.4 % 03/31/23 05:03 Eos % (Auto) 0.0 % 03/31/23 05:03 Baso % (Auto) 0.0 % 03/31/23 05:03 Neut # (Auto) 3.31 10^3/uL (1.8-7.7) 03/31/23 05:03 Lymph # (Auto) 1.0 10^3/uL (0.8-4.8) 03/31/23 05:03 [place] # (Auto) 0.3 10^3/uL (0.2-0.9) 03/31/23 05:03 Eos # (Auto) 0.0 10^3/uL (0.0-0.8) 03/31/23 05:03 Baso # (Auto) 0.0 10^3/uL (0.0-0.1) 03/31/23 05:03 Nucleated RBC % (auto) 0 % 03/31/23 05:03 Nucleated RBCs # 0.0 /100WBC 03/31/23 05:03 Specimen Type Arterial 03/29/23 08:34 Sample Site Radial, right 03/29/23 08:34 ABG pH 7.44 (7.35-7.45) 03/29/23 08:34 ABG pCO2 36.6 mmHg (35-45) 03/29/23 08:34 ABG pO2 84.3 mmHg (80.0-100.0) 03/29/23 08:34 ABG HCO3 24.6 mmol/L (22-26) 03/29/23 08:34 ABG Base Excess 0.6 mmol/L (-2.0-2.0) 03/29/23 08:34 [place]ino Test Pos 03/29/23 08:34 Hematocrit 34.2 % (37-47) L 03/29/23 08:34 O2 Delivery Device Room air 03/29/23 08:34 FiO2 21.0 % 03/29/23 08:34 Abalone Fisherman ID Talon 03/29/23 08:34 Sodium 136 mmol/L (136-145) 03/31/23 05:03 Potassium 5.3 mmol/L (3.5-5.1) H 03/31/23 05:03 Chloride 104 mmol/L (98-107) 03/31/23 05:03 Carbon Dioxide 27 mmol/L (22-29) 03/31/23 05:03 Anion Gap 10.3 (5-19) 03/31/23 05:03 BUN 16 mg/dL (6-20) 03/31/23 05:03 Creatinine 0.3 mg/dL (0.5-0.9) L 03/31/23 05:03 GFR Calculation 234.5 mL/min (90-130) H 03/31/23 05:03 Glucose 120 mg/dL (65-115) H 03/31/23 05:03 Calculated Osmolality 284 mOsm/kg (285-295) L 03/31/23 05:03 Calcium 8.7 mg/dL (8.5-10.5) 03/31/23 05:03 Phosphorus 2.6 mg/dL (2.5-4.5) 03/29/23 05:14 Magnesium 1.9 mg/dL (1.7-2.3) 03/29/23 05:14 Total Bilirubin 0.2 mg/dL (0.15-1.2) 03/28/23 16:36 AST 89 U/L (0-32) H 03/28/23 16:36 ALT 46 U/L (0-33) H 03/28/23 16:36 Alkaline Phosphatase 165 U/L (35-105) H 03/28/23 16:36 Troponin T Baseline 7 ng/L (0-10) 03/28/23 20:49 Troponin T 120 Minute 6.19 ng/L (0-10) 03/28/23 22:40 Delta Troponin T -0.81 ABS# (0-10) L 03/28/23 22:40 C-Reactive Protein 3.0 mg/L (0.0-4.9) 03/29/23 05:14 NT-Pro-B Natriuret Pep 36 pg/mL (0-125) 03/28/23 16:36 Total Protein 7.9 g/dL (6.6-8.7) 03/28/23 16:36 Albumin 3.9 g/dL (3.5-5.2) 03/28/23 16:36 Globulin 4.0 g/dL (1.3-4.6) 03/28/23 16:36 Vitamin B12 615 pg/mL (232-1245) 03/28/23 22:40 Procalcitonin 0.05 ng/mL (0-0.5) 03/28/23 20:49 Urine Color Yellow (Yellow) 03/28/23 16:13 Urine Appearance Clear (CLEAR) 03/28/23 16:13 Urine pH 6.5 (5-7) 03/28/23 16:13 Ur Specific [place] 1.010 (1.005-1.030) 03/28/23 16:13 Urine Protein Neg (Negative) 03/28/23 16:13 Urine Glucose (UA) Norm (Normal) 03/28/23 16:13 Urine Ketones Negative (Negative) 03/28/23 16:13 Urine Blood Neg (Negative) 03/28/23 16:13 Urine Nitrate Negative (Negative) 03/28/23 16:13 Urine Bilirubin Neg (Negative) 03/28/23 16:13 Urine Urobilinogen Norm mg/dL (Negative) 03/28/23 16:13 Ur Leukocyte Esterase Negative (Negative) 03/28/23 16:13 Nasal Influ A H1 2008 PCR Not detected (NOT DETECT) 03/29/23 17:57 Adenovirus (PCR) Not detected (NOT DETECT) 03/29/23 17:57 C. pneumoniae DNA (PCR) Not detected (NOT DETECT) 03/29/23 17:57 Coronavirus 229E (PCR) Not detected (NOT DETECT) 03/29/23 17:57 Human Metapneumovir PCR Not detected (NOT DETECT) 03/29/23 17:57 Influenza A (H1) PCR Not detected (NOT DETECT) 03/29/23 17:57 Influenza A (H3) PCR Not detected (NOT DETECT) 03/29/23 17:57 Influenza Type A (PCR) Not detected (NOT DETECT) 03/29/23 17:57 Influenza Type B (PCR) Not detected (NOT DETECT) 03/29/23 17:57 M. pneumoniae (PCR) Not detected (NOT DETECT) 03/29/23 17:57 Parainfluenza 1 (PCR) Not detected (NOT DETECT) 03/29/23 17:57 Parainfluenza 2 (PCR) Not detected (NOT DETECT) 03/29/23 17:57 Parainfluenza 3 (PCR) Not detected (NOT DETECT) 03/29/23 17:57 Parainfluenza 4 (PCR) Not detected (NOT DETECT) 03/29/23 17:57 RSV Type A (PCR) Not detected (NOT DETECT) 03/29/23 17:57 RSV Type B (PCR) Not detected (NOT DETECT) 03/29/23 17:57 Entero/Rhino (PCR) Not detected (NOT DETECT) 03/29/23 17:57 SARS-CoV-2 (PCR) Not detected (NOT DETECT) 03/29/23 17:57 Vitals Last Vital Signs Temp 98.1 F 03/31/23 07:41 Pulse 72 03/31/23 11:21 Resp 16 03/31/23 11:21 BP 125/79 03/31/23 07:41 Pulse Ox 98 03/31/23 11:21 O2 Del Method Room Air 03/31/23 11:21 Discharge Plan Discharge Patient Disposition: Home Condition: Stable Prescriptions: New prednisone 20 mg tablet 20 mg PO BID 5 Days Qty: 10 0RF doxycycline hyclate 100 mg tablet 100 mg PO BID 5 Days Qty: 10 0RF Continued lorazepam 1 mg tablet 0.5 - 1 mg PO Q6H PRN (Reason: Severe Nausea) Qty: 30 3RF enoxaparin 60 mg/0.6 mL syringe 60 mg .ROUTE Q12H 90 Days Qty: 108 2RF Rx Instructions: 60 mg every 12 hours; morphine 60 mg tablet extended release 60 mg PO Q12H 30 Days Qty: 60 0RF potassium chloride 20 mEq tablet extended release 20 meq PO QAM albuterol sulfate 90 mcg/actuation HFA aerosol inhaler 2 inh inhalation Q8H PRN (Reason: shortness of breath or wheezing) Qty: 8.5 0RF naloxone 4 mg/actuation [place],Non-Aerosol 4 mg INTRANASAL Q2M PRN (Reason: Opiate Reversal) Rx Instructions: spray 1 dose into ONE nostril; alternate nostrils w each dose until help arrives lidocaine-prilocaine 2.5-2.5 % cream See Rx Instructions .ROUTE .COMPLEX Rx Instructions: Apply to port 30-45 minutes prior to port access montelukast [Singulair] 10 mg tablet 10 mg PO QAM ondansetron HCl 4 mg tablet 4 mg PO Q8H PRN (Reason: Nausea And Vomiting) Discharge Orders: Discharge Order (Routine); Ordered 03/31/23 Ordered By: Prince Garibay Referrals: Clarice Perez MD [Primary Care Provider] - 04/06/23 1:10 pm Discharge Diet: Cardiac Discharge Activity: Resume usual activity Patient Instructions: Opioid Safety Activity Restrictions/Additional Instructions: - If you have any shortness of breath please go to the emergency room Discharge Attestations Time Spent in Discharge Care*: greater than 30 min Quality Metrics Clinical Quality Measures [ No reported AMI, CVA or VTE this stay] Coding Level of Care Code 25858 Total time (in minutes) for Discharge: 45 Diagnoses Acute dyspnea R06.00 Atrial tachycardia I47.1 Exertional dyspnea R06.09 Pulmonary embolism I26.99 Colon cancer C18.9 Asthma exacerbation J45.901 Respiratory tract infection J98.8
[2023-03-31] MEDS: azithromycin 500 MG in sodium chloride 0.9% 250 ML 250 MG IV (11:51)
[2023-03-31] MEDS: ondansetron 2 mg/ML SDV 2 mL 4 MG IVP (12:36)
== END 2023-03-31 17:03 | disposition home or self-care (01) | DRG 202 ==
LOC: ER 20:44 → MEDSURG 21:18
PROVIDERS: Admitting Provider Internal Medicine; Emergency Provider Family Medicine; PCP Family Medicine; Visit Provider Family Medicine
DX: J45.901 Unspecified asthma with (acute) exacerbation (principal); I26.99 Other pulmonary embolism without acute cor pulmonale; C18.7 Malignant neoplasm of sigmoid colon; D84.9 Immunodeficiency, unspecified; C7B.02 Secondary carcinoid tumors of liver; Z90.49 Acquired absence of other specified parts of digestive tract; R06.82 Tachypnea, not elsewhere classified; Z87.891 Personal history of nicotine dependence; Z79.01 Long term (current) use of anticoagulants; R00.0 Tachycardia, unspecified; J98.8 Other specified respiratory disorders; Z87.01 Personal history of pneumonia (recurrent); Z79.891 Long term (current) use of opiate analgesic; Z79.51 Long term (current) use of inhaled steroids; Z93.3 Colostomy status; Z95.9 Presence of cardiac and vascular implant and graft, unspecified; Z79.60 Long term (current) use of unspecified immunomodulators and immunosuppressants
CPT/HCPCS: 36415; 36591; 36592; 36600; 71045; 71275; 80048; 80053; 81003; 82607; 82803; 83735; 83880; 84100; 84145; 84484; 85025; 86140; 87040; 87486; 87581; 87633; 87635; 93005; 94640; 96372; 96374; 96375; 99285; G0378; J0456; J0696; J1170; J1650; J2270; J2405; J2920; J2930; J7050; Q9967

== ENCOUNTER 2023-04-13 14:00 | Oncology outpatient (recurring) (ONCR) | payer MEDICAID, SELFPAY ==
[2023-03-16 11:20] VITALS: BP 95/68; PULSE 103; RESP 16; TEMP 36.6; O2SAT 98
[2023-03-28 08:42] VITALS: BP 92/67; PULSE 102; RESP 18; TEMP 37.2; O2SAT 94
[2023-03-28 09:01] LABS: Basophils % 0.4 %; Eosinophils # 0.4 10^3/uL (0.0-0.8); Hematocrit 34.3 % (37.0-47.0); Lymphocytes # 2.1 10^3/uL (0.8-4.8); Lymphocytes % 30.8 %; Mean Corpuscular HGB Conc 32.1 g/dL (30.0-36.0); Mean Corpuscular Hemoglobin 28.5 pg (28.0-34.0); Mean Corpuscular Volume 88.9 fl (81-99); Mean Platelet Volume 10.1 fL (7.4-10.4); Monocytes # 0.7 10^3/uL (0.2-0.9); Monocytes % 10.7 %; Neutrophils # 3.52 10^3/uL (1.8-7.7); Neutrophils % 51.8 %; Nucleated Red Blood Cells % 0 %; Platelet Count 203 10^3/cmm (130-400); Red Blood Count 3.86 10^6/uL (4.1-5.3); White Blood Count 6.8 10^3/uL (4.0-10.0)
[2023-03-28 09:35] LABS: Carcinoembryonic Antigen 1.8 ng/mL (0.0-4.7)
[2023-03-28 09:47] LABS: Alanine Aminotransferase 27 U/L (0-33); Albumin Level 3.7 g/dL (3.5-5.2); Alkaline Phosphatase 133 U/L (35-105); Anion Gap 14.6 (5-19); Aspartate Amino Transferase 55 U/L (0-32); Blood Urea Nitrogen 8 mg/dL (6-20); Calcium 9.5 mg/dL (8.5-10.5); Carbon Dioxide 27 mmol/L (22-29); Chloride 103 mmol/L (98-107); Globulin 3.1 g/dL (1.3-4.6); Glomerular Filtration Rate 168.3 mL/min (90-130); Glucose 112 mg/dL (65-115); Osmolality Calculated 289 mOsm/kg (285-295); Potassium 4.6 mmol/L (3.5-5.1); Sodium 140 mmol/L (136-145); Total Bilirubin 0.2 mg/dL (0.15-1.2); Total Protein 6.8 g/dL (6.6-8.7)
[2023-03-28] MEDS: sodium chloride 0.9% 500 ML 999 ML IV (10:50)
[2023-03-28] MEDS: palonosetron 0.25 mg/5 mL SDV IVP (11:33)
[2023-03-28] MEDS: dextrose 5% 250 ML 100 ML IV (12:08)
[2023-03-28] MEDS: leucovorin 650 MG in dextrose 5% 250 ML 62.5 MG IV (12:08)
[2023-03-28 15:25] VITALS: BP 139/88; PULSE 105; O2SAT 99
--- NOTE | 2023-03-28 16:01 | PC.NURSE ---
Notified Dr. Mayberry that pt had a coughing spell and pt states she is struggling to breathe. Pulse is 105, O2 99, BP 139/88. Dr. Mayberry states to give pt breathing tx and send to ER for CT scan checking for blood clots. Ai Branham RN and I took pt to ER via wheel chair. Handed pt off to service dismantler, (did not get name). He stated 'we got it'. I asked if he would like vitals or any info, he just stated again that 'we got it'.
[2023-04-11 08:20] VITALS: BMI 21.2
[2023-04-11 08:21] VITALS: BP 95/67; PULSE 87; RESP 18; TEMP 36.4; O2SAT 97
[2023-04-11 08:39] LABS: Basophils % 0.2 %; Eosinophils # 0.4 10^3/uL (0.0-0.8); Eosinophils % 4.3 %; Hematocrit 33.5 % (36-47); Lymphocytes # 2.3 10^3/uL (0.8-4.8); Lymphocytes % 26.4 %; Mean Corpuscular HGB Conc 31.3 g/dL (30-55); Mean Corpuscular Hemoglobin 28.8 pg (27-33); Mean Platelet Volume 9.3 fL (7.4-10.4); Monocytes # 0.9 10^3/uL (0.2-0.9); Neutrophils # 5.16 10^3/uL (1.8-7.7); Neutrophils % 58.6 %; Nucleated Red Blood Cells % 0 %; Platelet Count 160 10^3/cmm (157-399); Red Blood Count 3.64 10^6/uL (3.85-5.65); Red Cell Distribution Width 15.9 % (12.1-15.1)
[2023-04-11 08:53] LABS: Alanine Aminotransferase 35 U/L (0-33); Albumin Level 3.3 g/dL (3.5-5.2); Alkaline Phosphatase 100 U/L (35-105); Anion Gap 14.1 (5-19); Aspartate Amino Transferase 32 U/L (0-32); Blood Urea Nitrogen 7 mg/dL (6-20); Calcium 8.8 mg/dL (8.5-10.5); Carbon Dioxide 27 mmol/L (22-29); Chloride 100 mmol/L (98-107); Globulin 2.7 g/dL (1.3-4.6); Glomerular Filtration Rate 168.3 mL/min (90-130); Glucose 102 mg/dL (65-115); Osmolality Calculated 280 mOsm/kg (285-295); Potassium 5.1 mmol/L (3.5-5.1); Sodium 136 mmol/L (136-145); Total Bilirubin 0.2 mg/dL (0.15-1.2)
[2023-04-11] MEDS: sodium chloride 0.9% 500 ML 999 ML IV (11:49)
[2023-04-11] MEDS: dextrose 5% 250 ML 100 ML IV (12:25)
[2023-04-11] MEDS: palonosetron 0.25 mg/5 mL SDV IVP (12:26)
[2023-04-11] MEDS: oxaliplatin 100 MG, oxaliplatin 36 MG in dextrose 5% 250 ML 69.3 MG IV (12:59)
[2023-04-11] MEDS: leucovorin 640 MG in dextrose 5% 250 ML 62.5 MG IV (12:59)
[2023-04-11] MEDS: fluorouraciL 3,850 MG, elastomeric pump 1 PUMP in sodium chloride 0.9% (100 ml) 15 ML IV (16:33)
[2023-04-11 16:40] VITALS: BP 110/56; PULSE 74; RESP 16; TEMP 36.2; O2SAT 95
[2023-04-13 10:18] VITALS: BP 104/56; PULSE 68; TEMP 36.6; O2SAT 96
--- NOTE | 2023-04-13 10:20 | PC.NURSE ---
Pt in infusion suite 6 hours early for her pump off appointment. Educated pt that she may not be getting the full dose of 5fu. Pt states she still wants to take pump off. KAMALJIT
== END 2023-04-14 23:59 | disposition home or self-care (01) ==
PROVIDERS: Nurse Practitioner Family; PCP Family Medicine; Visit Provider Internal Medicine Medical Oncology
DX: Z45.2 Encounter for adjustment and management of vascular access device (principal)
CPT/HCPCS: 80053; 82378; 85025; 96367; 96368; 96375; 96413; 96415; 96416; 96523; J0640; J1100; J1642; J2469; J7040; J7060; J9190; J9263

== ENCOUNTER 2023-05-05 15:00 | Oncology outpatient (recurring) (ONCR) | payer MEDICAID, SELFPAY ==
[2023-04-19 09:21] LABS: Basophils % 0.3 %; Eosinophils # 0.6 10^3/uL (0.0-0.8); Eosinophils % 7.9 %; Hematocrit 33.8 % (36-47); Lymphocytes % 28.3 %; Mean Corpuscular Hemoglobin 29.3 pg (27-33); Mean Corpuscular Volume 91.6 fl (85-98); Mean Platelet Volume 10.8 fL (7.4-10.4); Monocytes # 0.5 10^3/uL (0.2-0.9); Monocytes % 7.2 %; Neutrophils # 4.01 10^3/uL (1.8-7.7); Neutrophils % 55.6 %; Nucleated Red Blood Cells % 0 %; Platelet Count 75 10^3/cmm (157-399); Red Blood Count 3.69 10^6/uL (3.85-5.65); Red Cell Distribution Width 14.8 % (12.1-15.1); White Blood Count 7.21 10^3/uL (3.29-11.43)
[2023-04-19 09:34] LABS: Alanine Aminotransferase 24 U/L (0-33); Albumin Level 3.6 g/dL (3.5-5.2); Alkaline Phosphatase 137 U/L (35-105); Anion Gap 11.4 (5-19); Aspartate Amino Transferase 27 U/L (0-32); Blood Urea Nitrogen 4 mg/dL (6-20); Calcium 9.3 mg/dL (8.5-10.5); Carbon Dioxide 29 mmol/L (22-29); Chloride 105 mmol/L (98-107); Globulin 3.1 g/dL (1.3-4.6); Glomerular Filtration Rate 168.3 mL/min (90-130); Glucose 103 mg/dL (65-115); Osmolality Calculated 289 mOsm/kg (285-295); Potassium 4.4 mmol/L (3.5-5.1); Sodium 141 mmol/L (136-145); Total Bilirubin 0.2 mg/dL (0.15-1.2); Total Protein 6.7 g/dL (6.6-8.7)
[2023-05-03 09:25] VITALS: BP 96/67; PULSE 91; RESP 16; TEMP 36.7; O2SAT 92
[2023-05-03 09:47] LABS: Basophils # 0.1 10^3/uL (0.0-0.1); Basophils % 0.9 %; Eosinophils # 0.2 10^3/uL (0.0-0.8); Eosinophils % 3.3 %; Hematocrit 37.4 % (36-47); Lymphocytes # 2.4 10^3/uL (0.8-4.8); Lymphocytes % 38.2 %; Mean Corpuscular Hemoglobin 28.6 pg (27-33); Mean Corpuscular Volume 92.1 fl (85-98); Mean Platelet Volume 10.3 fL (7.4-10.4); Monocytes % 15.8 %; Neutrophils % 41.2 %; Nucleated Red Blood Cells % 0 %; Platelet Count 187 10^3/cmm (157-399); Red Blood Count 4.06 10^6/uL (3.85-5.65); Red Cell Distribution Width 15.5 % (12.1-15.1); White Blood Count 6.33 10^3/uL (3.29-11.43)
[2023-05-03 10:15] LABS: Carcinoembryonic Antigen 2.6 ng/mL (0.0-4.7)
[2023-05-03 10:27] LABS: Alanine Aminotransferase 7 U/L (0-33); Albumin Level 3.7 g/dL (3.5-5.2); Alkaline Phosphatase 101 U/L (35-105); Anion Gap 13.6 (5-19); Aspartate Amino Transferase 17 U/L (0-32); Blood Urea Nitrogen 6 mg/dL (6-20); Calcium 9.6 mg/dL (8.5-10.5); Carbon Dioxide 29 mmol/L (22-29); Chloride 103 mmol/L (98-107); Globulin 3.3 g/dL (1.3-4.6); Glomerular Filtration Rate 168.3 mL/min (90-130); Glucose 95 mg/dL (65-115); Osmolality Calculated 289 mOsm/kg (285-295); Potassium 4.6 mmol/L (3.5-5.1); Sodium 141 mmol/L (136-145); Total Bilirubin 0.2 mg/dL (0.15-1.2)
[2023-05-03] MEDS: dextrose 5% 250 ML 75 ML IV (12:35)
[2023-05-03] MEDS: palonosetron 0.25 mg/5 mL SDV IVP (12:38)
[2023-05-03] MEDS: oxaliplatin 100 MG, oxaliplatin 34 MG in dextrose 5% 250 ML 69.2 MG IV (13:45)
[2023-05-03] MEDS: fluorouraciL 3,800 MG, elastomeric pump 1 PUMP in sodium chloride 0.9% (100 ml) 16 ML IV (16:41)
[2023-05-03 16:49] VITALS: BP 110/58; PULSE 76; TEMP 36.3; O2SAT 94
== END 2023-05-14 23:59 | disposition home or self-care (01) ==
PROVIDERS: Nurse Practitioner Family; PCP Family Medicine; Visit Provider Internal Medicine Medical Oncology
DX: Z45.1 Encounter for adjustment and management of infusion pump (principal)
CPT/HCPCS: 36591; 80053; 82378; 85025; 96367; 96368; 96375; 96413; 96415; 96416; 96523; J0640; J1100; J1642; J2469; J7060; J9190; J9263

== ENCOUNTER 2023-05-26 11:19 | Emergency (ER) | payer MEDICAID, SELFPAY ==
[2023-05-26 11:36] VITALS: BP 109/69; PULSE 85; RESP 18; TEMP 36.3; O2SAT 95
[2023-05-26 11:43] VITALS: BP 91/61; PULSE 82; RESP 18; O2SAT 95
--- NOTE | 2023-05-26 11:45 | W.ED.GIBLEED ---
HPI - GI Bleed General: Chief complaint: GI Bleed Stated complaint: bleeding from ostemy bag Time Seen by Provider: 05/26/23 11:27 History of Present Illness: 53-year-old female with complex medical history including colon cancer with mets to liver, PE and mood disorder presents emergency room today after noticing blood in colostomy bag. Patient further reveals that she is currently on Lovenox for the past few months for PE. She denies any vomiting blood, fever, chills, abdominal pain shortness of breath or chest pain. Patient has any dizziness, lightheadedness, headache or blurry vision. Patient and for the reveals that patient was seen and evaluated at [facility] in [facility] around September 28 and underwent bowel resection with colostomy. Associated symptoms: Denies abdominal pain, chills, fever(s), nausea or vomiting Review of Systems General: Reports: 10 or more systems reviewed and unremarkable except in HPI and below Const: Denies: fever(s), chills, body aches or change in appetite Card: Denies: chest pain, palpitations or irregular heart rhythm Resp: Denies: dyspnea, productive cough, non-productive cough or wheezing GI: Reports: hematochezia; Denies: abdominal pain, nausea, vomiting, constipation, bloating, GI cramping, excessive flatus, change in bowel habits, rectal swelling, mucus in stool or white/light colored stool PFSH ED PFSH: Medical History Bleeding per rectum Cancer related pain Chronic anticoagulation Colon cancer Colon cancer metastasized to liver Diverticulitis 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 Family History Other CAD (coronary artery disease) Cancer Hyperlipidemia Hypertension Lung disease Psychiatric illness Stroke Denies family history of Diabetes Clotting disorder Dementia Chronic kidney disease (CKD) Suicide Anesthesia complication Bleeding disorder Social History Smoking and tobacco/nicotine status: former use of tobacco/nicotine Quit status (tobacco/nicotine): has quit using Year quit tobacco: August 2022 Former quit date comment: smoked x 10 years Alcohol intake: never Physical Exam Const: COMMON NORMALS: no acute distress, average body habitus, patient oriented x3, no limitations, healthy appearing, alert and well nourished Neck/C-Spine: COMMON NORMALS: full ROM, no lymphadenopathy, supple, no meningeal signs, no JVD, Thyroid normal and No carotid bruits THYROID: Thyroid normal Lymph: LYMPHATIC: no lymphadenopathy noted Resp: COMMON NORMALS: normal respiratory effort, No retractions, No use of accessory muscles, clear to auscultation bilaterally and percussion normal AUSCULTATION: clear to auscultation bilaterally PERCUSSION: percussion normal Cardio: COMMON NORMALS: no JVD GI: COMMON NORMALS: Soft to palpation INSPECTION: No Abdominal wall edema, No Anasarca, No abdominal distension, No incision, Yes GI ostomy present (Visible blood in the bag) and Yes other (Diffuse ecchymosis) AUSCULTATION: Yes normoactive bowel sounds PALPATION: Yes Soft to palpation, No Tenderness to palpation present (GI), No Guarding due to palpation present (GI), No Rigid due to palpation, No Splenomegaly present, No Hernia present, No Abdominal wall crepitus present and No Carnett's sign positive PERCUSSION: normal to percussion : EXTERNAL FEMALE EXAM: No Hernia present Neuro: COMMON NORMALS: patient oriented x3 SENSORIUM/ORIENTATION: Yes alert MENINGEAL SIGNS: Yes no meningeal signs Skin: OTHER: Pale. Course Consultations: Consultation #1: Initially discussed patient with Dr. Coffman and the hospitalist. Dr. Mays later reviews patient's chart and felt that patient should be transferred to [place] where she had the procedure done initially. Consultation #2: Discussed patient with [facility] transfer center awaiting callback. Consultation #3: Discussed patient with the hospitalist at [facility] Dr. Laurent. Patient was accepted for transfer. Vital Signs: Vital signs: Vital Signs Temperature 97.8 F 05/26/23 15:09 Pulse Rate 80 05/26/23 16:00 Respiratory Rate 12 05/26/23 16:00 Blood Pressure 105/69 05/26/23 16:00 Pulse Oximetry 95 05/26/23 16:00 Oxygen Delivery Me thod Room Air 05/26/23 11:43 MDM - GI Bleed Medical Decision Making Patient was made comfortable emergency room. Patient was given IV fluid. Patient extensive work-up including CBC, CMP and coags. Discussed patient with the hospitalist, general surgery and . Plan is to transfer patient to [place] for further evaluation and treatment. Differential Diagnosis Likely infectious diarrhea, esophageal varices, Rhonda-Levi syndrome, Upper gastrointestinal hemorrhage, Lower gastrointestinal hemorrhage and hematochezia Lab Data 05/26/23 14:43 05/26/23 11:56 Laboratory Results WBC 5.95 10^3/uL (3.29-11.43) 05/26/23 11:56 RBC 3.58 10^6/uL (3.85-5.65) L 05/26/23 11:56 Hgb 9.60 g/dL (11.27-16.99) L 05/26/23 14:43 Hct 29.9 % (36-47) L 05/26/23 14:43 MCV 90.8 fl (85-98) 05/26/23 11:56 MCH 28.8 pg (27-33) 05/26/23 11:56 MCHC 31.7 g/dL (30-55) 05/26/23 11:56 RDW 15.2 % (12.1-15.1) H 05/26/23 11:56 Plt Count 104 10^3/cmm (157-399) L 05/26/23 11:56 MPV 10.5 fL (7.4-10.4) H 05/26/23 11:56 Neut % (Auto) 54.3 % 05/26/23 11:56 Lymph % (Auto) 27.9 % 05/26/23 11:56 [place] % (Auto) 10.4 % 05/26/23 11:56 Eos % (Auto) 6.6 % 05/26/23 11:56 Baso % (Auto) 0.3 % 05/26/23 11:56 Neut # (Auto) 3.23 10^3/uL (1.8-7.7) 05/26/23 11:56 Lymph # (Auto) 1.7 10^3/uL (0.8-4.8) 05/26/23 11:56 [place] # (Auto) 0.6 10^3/uL (0.2-0.9) 05/26/23 11:56 Eos # (Auto) 0.4 10^3/uL (0.0-0.8) 05/26/23 11:56 Baso # (Auto) 0.0 10^3/uL (0.0-0.1) 05/26/23 11:56 Nucleated RBC % (auto) 0 % 05/26/23 11:56 Nucleated RBCs # 0.0 /100WBC 05/26/23 11:56 PT 12.90 SECONDS (12.1-14.9) 05/26/23 11:56 INR 0.94 (0.8-1.2) 05/26/23 11:56 APTT 41.0 SECONDS (23.9-36.7) H 05/26/23 11:56 Sodium 140 mmol/L (136-145) 05/26/23 11:56 Potassium 4.3 mmol/L (3.5-5.1) 05/26/23 11:56 Chloride 102 mmol/L (98-107) 05/26/23 11:56 Carbon Dioxide 29 mmol/L (22-29) 05/26/23 11:56 Anion Gap 13.3 (5-19) 05/26/23 11:56 BUN 8 mg/dL (6-20) 05/26/23 11:56 Creatinine 0.4 mg/dL (0.5-0.9) L 05/26/23 11:56 GFR Calculation 168.3 mL/min (90-130) H 05/26/23 11:56 Glucose 110 mg/dL (65-115) 05/26/23 11:56 Calculated Osmolality 289 mOsm/kg (285-295) 05/26/23 11:56 Calcium 9.4 mg/dL (8.5-10.5) 05/26/23 11:56 Total Bilirubin 0.2 mg/dL (0.15-1.2) 05/26/23 11:56 AST 20 U/L (0-32) 05/26/23 11:56 ALT 11 U/L (0-33) 05/26/23 11:56 Alkaline Phosphatase 106 U/L (35-105) H 05/26/23 11:56 Total Protein 6.6 g/dL (6.6-8.7) 05/26/23 11:56 Albumin 3.5 g/dL (3.5-5.2) 05/26/23 11:56 Globulin 3.1 g/dL (1.3-4.6) 05/26/23 11:56 Blood Type O Positive 05/26/23 11:56 Rho(D) Type Positive 05/26/23 11:56 Antibody Screen Negative 05/26/23 11:56 No radiology studies performed this visit Critical Care Time Critical Care Time: Critical Care Time: Yes Total Critical Care Time: 45 Attestation: Time spent to reevaluate patient on multiple occasions. Time spent discussing patient with the and family. Time spent reviewing past medical records. Time spent discussing patient with various specialists including the hospitalist and general surgery. Discharge Plan Discharge Patient Disposition: Xfer Intermediate Care Fac Clinical Impression: Acute GI bleeding Condition: Stable Prescriptions: No Action bupropion HCl [Wellbutrin XL] 150 mg tablet extended release 24 hr 150 mg PO QAM Qty: 30 1RF enoxaparin 60 mg/0.6 mL syringe 60 mg .ROUTE Q12H 90 Days Qty: 108 2RF Rx Instructions: 60 mg every 12 hours; clonazepam 1 mg tablet 1 mg PO BID morphine 15 mg tablet 15 mg PO .EVERY 4-6 HOURS PRN (Reason: pain) 30 Days Qty: 60 0RF morphine 60 mg tablet extended release 60 mg PO Q12H 30 Days Qty: 60 0RF potassium chloride 20 mEq tablet extended release 10 meq PO QAM albuterol sulfate 90 mcg/actuation HFA aerosol inhaler 2 inh inhalation Q8H PRN (Reason: shortness of breath or wheezing) Qty: 8.5 0RF venlafaxine 37.5 mg capsule,extended release 24hr 37.5 mg PO QAM naloxone 4 mg/actuation [place],Non-Aerosol 4 mg INTRANASAL Q2M PRN (Reason: Opiate Reversal) Rx Instructions: spray 1 dose into ONE nostril; alternate nostrils w each dose until help arrives lidocaine-prilocaine 2.5-2.5 % cream See Rx Instructions .ROUTE .COMPLEX Rx Instructions: Apply to port 30-45 minutes prior to port access montelukast [Singulair] 10 mg tablet 10 mg PO QAM ondansetron HCl 4 mg tablet 4 mg PO Q8H PRN (Reason: Nausea And Vomiting) Referrals: Clarice Perez MD [Primary Care Provider] - Coding Level of Care Code ED Mixer Operator Raw Salt for Jarong Yaneli
[2023-05-26 12:06] LABS: Basophils % 0.3 %; Eosinophils # 0.4 10^3/uL (0.0-0.8); Eosinophils % 6.6 %; Hematocrit 32.5 % (36-47); Lymphocytes # 1.7 10^3/uL (0.8-4.8); Lymphocytes % 27.9 %; Mean Corpuscular HGB Conc 31.7 g/dL (30-55); Mean Corpuscular Hemoglobin 28.8 pg (27-33); Mean Corpuscular Volume 90.8 fl (85-98); Mean Platelet Volume 10.5 fL (7.4-10.4); Monocytes # 0.6 10^3/uL (0.2-0.9); Monocytes % 10.4 %; Neutrophils # 3.23 10^3/uL (1.8-7.7); Neutrophils % 54.3 %; Nucleated Red Blood Cells % 0 %; Platelet Count 104 10^3/cmm (157-399); Red Blood Count 3.58 10^6/uL (3.85-5.65); Red Cell Distribution Width 15.2 % (12.1-15.1); White Blood Count 5.95 10^3/uL (3.29-11.43)
[2023-05-26 12:23] LABS: INR 0.94 (0.8-1.2)
[2023-05-26 12:35] LABS: Alanine Aminotransferase 11 U/L (0-33); Albumin Level 3.5 g/dL (3.5-5.2); Alkaline Phosphatase 106 U/L (35-105); Anion Gap 13.3 (5-19); Aspartate Amino Transferase 20 U/L (0-32); Blood Urea Nitrogen 8 mg/dL (6-20); Calcium 9.4 mg/dL (8.5-10.5); Carbon Dioxide 29 mmol/L (22-29); Chloride 102 mmol/L (98-107); Globulin 3.1 g/dL (1.3-4.6); Glomerular Filtration Rate 168.3 mL/min (90-130); Glucose 110 mg/dL (65-115); Osmolality Calculated 289 mOsm/kg (285-295); Potassium 4.3 mmol/L (3.5-5.1); Sodium 140 mmol/L (136-145); Total Bilirubin 0.2 mg/dL (0.15-1.2); Total Protein 6.6 g/dL (6.6-8.7)
[2023-05-26] MEDS: sodium chloride 0.9% 1,000 ML 999 ML IV (14:17)
[2023-05-26 14:53] LABS: Hematocrit 29.9 % (36-47)
[2023-05-26 15:09] VITALS: BP 119/76; PULSE 88; RESP 16; TEMP 36.6; O2SAT 98
[2023-05-26 16:00] VITALS: BP 105/69; PULSE 80; RESP 12; O2SAT 95
== END 2023-05-26 18:32 | disposition intermediate care facility (04) ==
PROVIDERS: Emergency Provider Family Medicine; PCP Family Medicine
DX: K92.2 Gastrointestinal hemorrhage, unspecified (principal); Z93.3 Colostomy status; Z87.891 Personal history of nicotine dependence; Z85.038 Personal history of other malignant neoplasm of large intestine
CPT/HCPCS: 80053; 85014; 85018; 85025; 85610; 85730; 86850; 86900; 99284; 99291; J7030

== ENCOUNTER 2023-06-14 08:30 | Oncology outpatient (recurring) (ONCR) | payer MEDICAID, SELFPAY ==
[2023-05-17 08:58] VITALS: BP 95/67; PULSE 96; RESP 16; TEMP 37; O2SAT 90
[2023-05-17 09:14] LABS: Basophils % 0.2 %; Eosinophils # 0.3 10^3/uL (0.0-0.8); Eosinophils % 3.4 %; Hematocrit 34.4 % (36-47); Lymphocytes # 1.9 10^3/uL (0.8-4.8); Lymphocytes % 22.9 %; Mean Corpuscular HGB Conc 32.3 g/dL (30-55); Mean Corpuscular Hemoglobin 28.8 pg (27-33); Mean Corpuscular Volume 89.4 fl (85-98); Mean Platelet Volume 10.2 fL (7.4-10.4); Monocytes # 0.9 10^3/uL (0.2-0.9); Monocytes % 11.2 %; Neutrophils # 5.15 10^3/uL (1.8-7.7); Neutrophils % 62.1 %; Nucleated Red Blood Cells % 0 %; Platelet Count 143 10^3/cmm (157-399); Red Blood Count 3.85 10^6/uL (3.85-5.65); Red Cell Distribution Width 15.2 % (12.1-15.1)
[2023-05-17 09:55] LABS: Alanine Aminotransferase 7 U/L (0-33); Albumin Level 3.7 g/dL (3.5-5.2); Alkaline Phosphatase 105 U/L (35-105); Anion Gap 13.2 (5-19); Aspartate Amino Transferase 15 U/L (0-32); Blood Urea Nitrogen 6 mg/dL (6-20); Calcium 9.6 mg/dL (8.5-10.5); Carbon Dioxide 28 mmol/L (22-29); Chloride 100 mmol/L (98-107); Globulin 3.1 g/dL (1.3-4.6); Glomerular Filtration Rate 234.5 mL/min (90-130); Glucose 95 mg/dL (65-115); Osmolality Calculated 281 mOsm/kg (285-295); Potassium 4.2 mmol/L (3.5-5.1); Sodium 137 mmol/L (136-145); Total Bilirubin 0.4 mg/dL (0.15-1.2); Total Protein 6.8 g/dL (6.6-8.7)
[2023-05-17] MEDS: dextrose 5% 250 ML 75 ML IV (12:10)
[2023-05-17] MEDS: palonosetron 0.25 mg/5 mL SDV IVP (12:13)
[2023-05-17] MEDS: leucovorin 620 MG in dextrose 5% 250 ML 62.5 MG IV (12:45)
[2023-05-17] MEDS: DEXTROSE 5% IV (12:46)
[2023-05-17] MEDS: OXALIPLATIN IV (12:46)
[2023-05-17] MEDS: fluorouraciL 3,750 MG, elastomeric pump 1 PUMP in sodium chloride 0.9% (100 ml) 17 ML IV (15:18)
[2023-05-17 15:33] VITALS: BP 100/70; PULSE 77; TEMP 36.2; O2SAT 98
[2023-05-19 15:15] VITALS: BP 99/56; PULSE 78; RESP 18; TEMP 36.6; O2SAT 98
[2023-06-07 07:37] VITALS: BP 117/76; PULSE 110; RESP 16; TEMP 37.1; O2SAT 90
[2023-06-07 08:00] LABS: Basophils # 0.1 10^3/uL (0.0-0.1); Basophils % 0.8 %; Eosinophils # 0.3 10^3/uL (0.0-0.8); Eosinophils % 4.8 %; Hematocrit 35.5 % (36-47); Lymphocytes # 1.8 10^3/uL (0.8-4.8); Lymphocytes % 30.2 %; Mean Corpuscular HGB Conc 31.8 g/dL (30-55); Mean Corpuscular Hemoglobin 28.6 pg (27-33); Mean Corpuscular Volume 89.9 fl (85-98); Mean Platelet Volume 10.2 fL (7.4-10.4); Monocytes # 0.9 10^3/uL (0.2-0.9); Monocytes % 15.1 %; Neutrophils # 2.97 10^3/uL (1.8-7.7); Neutrophils % 48.6 %; Nucleated Red Blood Cells % 0 %; Platelet Count 225 10^3/cmm (157-399); Red Blood Count 3.95 10^6/uL (3.85-5.65); Red Cell Distribution Width 15.9 % (12.1-15.1)
[2023-06-07 08:13] LABS: Alanine Aminotransferase < 5 U/L (0-33); Albumin Level 3.7 g/dL (3.5-5.2); Alkaline Phosphatase 121 U/L (35-105); Anion Gap 11.2 (5-19); Aspartate Amino Transferase 20 U/L (0-32); Blood Urea Nitrogen 5 mg/dL (6-20); Calcium 9.9 mg/dL (8.5-10.5); Carbon Dioxide 31 mmol/L (22-29); Chloride 99 mmol/L (98-107); Globulin 3.3 g/dL (1.3-4.6); Glomerular Filtration Rate 234.5 mL/min (90-130); Glucose 113 mg/dL (65-115); Osmolality Calculated 282 mOsm/kg (285-295); Potassium 4.2 mmol/L (3.5-5.1); Sodium 137 mmol/L (136-145); Total Bilirubin 0.3 mg/dL (0.15-1.2)
[2023-06-07] MEDS: ondansetron 2 mg/ML SDV 2 mL 8 MG IVP (09:25)
[2023-06-07] MEDS: sodium chloride 0.9% 1,000 ML 999 ML IV (09:25)
[2023-06-07] MEDS: morphine IR 15 mg Tablet PO (09:26)
[2023-06-07 10:50] LABS: Add Urine Microscopic? NO; Charge for UA Resulting for Rev
[2023-06-07 10:59] LABS: Bilirubin Urine Neg (Negative); Blood Urine Neg (Negative); Glucose Urine UA Norm (Normal); Ketones Urine Negative (Negative); Leukocyte Esterase Urine Negative (Negative); Nitrate Urine Negative (Negative); Protein Urine Neg (Negative); Specific Gravity, Urine 1.015 (1.005-1.030); Urine Appearance Clear (CLEAR); Urine Color Yellow (Yellow); Urobilinogen Urine Norm (Negative); pH Urine 7 (5-7)
--- NOTE | 2023-06-08 10:59 | XR_ITS ---
WS: [id number] Exam: XR chest 2V* [id number] Date/Time of Exam: 06/08/2023 11:00 AM Reason For Exam: dyspnea Comparison 03/19/2023. The lungs are fully expanded and clear. Chronic plaque atelectasis in the LEFT retrocardiac region. N o pleural effusions. The mediastinum is normal in contour. Heart size is normal. A LEFT subclavian po rt ends at the cavoatrial junction. Bony structures are intact. An IVC filter is noted. Surgical clip s in the upper RIGHT abdomen. Moderate amount of stool visualized in the transverse colon. IMPRESSION: 1. Chronic atelectatic changes in the LEFT retrocardiac region. No acute infiltrate noted. 2. Left-sided port in satisfactory position.
[2023-06-14 09:15] VITALS: BP 97/66; PULSE 100; RESP 17; TEMP 36.4; O2SAT 92
[2023-06-14 09:17] VITALS: BMI 20.1
[2023-06-14 09:22] LABS: Basophils # 0.1 10^3/uL (0.0-0.1); Basophils % 0.9 %; Eosinophils # 0.4 10^3/uL (0.0-0.8); Eosinophils % 4.8 %; Hematocrit 37.5 % (36-47); Lymphocytes # 2.4 10^3/uL (0.8-4.8); Lymphocytes % 30.7 %; Mean Corpuscular HGB Conc 30.9 g/dL (30-55); Mean Corpuscular Hemoglobin 28.4 pg (27-33); Mean Corpuscular Volume 91.7 fl (85-98); Mean Platelet Volume 9.5 fL (7.4-10.4); Monocytes # 0.8 10^3/uL (0.2-0.9); Monocytes % 10.3 %; Neutrophils # 4.22 10^3/uL (1.8-7.7); Neutrophils % 52.9 %; Nucleated Red Blood Cells % 0 %; Platelet Count 228 10^3/cmm (157-399); Red Blood Count 4.09 10^6/uL (3.85-5.65); Red Cell Distribution Width 15.7 % (12.1-15.1); White Blood Count 7.96 10^3/uL (3.29-11.43)
[2023-06-14 09:53] LABS: Alanine Aminotransferase 6 U/L (0-33); Albumin Level 3.7 g/dL (3.5-5.2); Alkaline Phosphatase 114 U/L (35-105); Aspartate Amino Transferase 15 U/L (0-32); Blood Urea Nitrogen 5 mg/dL (6-20); Calcium 9.6 mg/dL (8.5-10.5); Carbon Dioxide 30 mmol/L (22-29); Chloride 100 mmol/L (98-107); Globulin 3.5 g/dL (1.3-4.6); Glomerular Filtration Rate 168.3 mL/min (90-130); Glucose 108 mg/dL (65-115); Osmolality Calculated 284 mOsm/kg (285-295); Sodium 138 mmol/L (136-145); Total Bilirubin 0.4 mg/dL (0.15-1.2); Total Protein 7.2 g/dL (6.6-8.7)
[2023-06-14] MEDS: dextrose 5% 250 ML 75 ML IV (11:46)
[2023-06-14] MEDS: palonosetron 0.25 mg/5 mL SDV IVP (11:48)
[2023-06-14] MEDS: leucovorin 620 MG in dextrose 5% 250 ML 62.5 MG IV (12:22)
[2023-06-14] MEDS: DEXTROSE 5% IV (12:22)
[2023-06-14] MEDS: OXALIPLATIN IV (12:22)
[2023-06-14] MEDS: fluorouraciL 3,750 MG, elastomeric pump 1 PUMP in sodium chloride 0.9% (100 ml) 17 ML IV (14:52)
[2023-06-14 15:52] VITALS: BP 99/63; PULSE 82; O2SAT 93
== END 2023-06-14 23:59 | disposition home or self-care (01) ==
PROVIDERS: Nurse Practitioner Family; PCP Family Medicine; Visit Provider Internal Medicine Medical Oncology
DX: Z45.2 Encounter for adjustment and management of vascular access device (principal); R06.00 Dyspnea, unspecified; C18.9 Malignant neoplasm of colon, unspecified; C78.7 Secondary malignant neoplasm of liver and intrahepatic bile duct; I26.99 Other pulmonary embolism without acute cor pulmonale; Z79.899 Other long term (current) drug therapy; Z51.11 Encounter for antineoplastic chemotherapy
CPT/HCPCS: 71046; 80053; 81003; 82378; 85025; 96367; 96368; 96375; 96413; 96415; 96416; 96523; J0640; J1100; J1642; J2405; J2469; J7030; J7060; J9190; J9263

== ENCOUNTER 2023-06-20 08:51 | Emergency (ER) | payer MEDICAID, SELFPAY ==
[2023-06-20 08:54] VITALS: BP 133/82; PULSE 98; RESP 18; TEMP 36.8; O2SAT 95
--- NOTE | 2023-06-20 09:07 | ECG_ITS ---
[facility] Test Date: 2023-06-20 Pat Name: Judi Lam Department: Room: Gender: Female Stain Applicator: : 1970 Requested By: Alexi Arreola Order Number: [id number] Marissa MD: Pawel Marcelino M.D. Measurements Intervals [place] Rate: 95 P: 54 MA: 152 QRS: 49 QRSD: 69 T: 40 QT: 344 QTc: 433 Interpretive Statements SINUS RHYTHM NONSPECIFIC T-WAVE ABNORMALITY Compared to ECG 03/28/2023 20:51:40 T-wave abnormality now present Sinus tachycardia no longer present Electronically Signed On 06-20-2023 12:05:02 HOME HEALTH AIDE CAREGIVER by Pawel Marcelino M.D. [id number]
--- NOTE | 2023-06-20 09:07 | XRR_ITS ---
PROCEDURE INFORMATION: Exam: XR Chest Exam date and time: 06/20/2023 10:16 AM Age: 53 years old Clinical indication: Dyspnea; Prior surgery; Surgery date: 6+ months; Surgery type: Port; Patient HX: HX of colon cancer TECHNIQUE: Imaging protocol: Radiologic exam of the chest. Views: 1 view. COMPARISON: 1. CT abdomen pelvis w con* [id number] 03/19/2023 10:32 PM 2. CR XR chest 2V* [id number] 06/08/2023 11:05 AM FINDINGS: Tubes, catheters and devices: Stable left chest port terminates at the upper right atrium. Lungs: Stable retrocardiac left lower lobe bronchiectasis with mucous impaction. Subtle linear atelectasis versus scarring at the lung bases. Mild biapical pleural-parenchymal thickening. No consolidation. Pleural spaces: No pleural effusion or pneumothorax. Heart/Mediastinum: Unremarkable. No cardiomegaly. Vasculature: Partially visualized IVC filter. Bones/joints: Unremarkable. Intraperitoneal space: Right upper abdomen surgical clips. XR/XR chest 1V portable [id number] IMPRESSION: No acute findings.
[2023-06-20 10:00] VITALS: BP 118/79; PULSE 86; O2SAT 96
--- NOTE | 2023-06-20 10:05 | W.ED.ABDPA2 ---
HPI - Abdominal Pain General: Chief Complaint: Abdominal Pain Stated Complaint: chest pain, sob Time Seen by Provider: 06/20/23 09:06 Source: patient Mode of arrival: ambulatory History of Present Illness: 53-year-old female with a known history of colon CA with metastasis to the liver. Presents emergency room complaining epigastric right-sided chest pain. She not had any shortness of breath she is not tachypneic tachycardic or hypoxic. She has had nausea and vomiting no diarrhea she is run out of her pain medications yesterday. No fever sweats or chills. MD elicited complaint: abdominal pain Pertinent past history: other (Colon cancer with mets to the liver) Onset (ago): day(s) Location: Epigastric Severity: mild Quality: cramping Exacerbating factors: nothing Relieving factors: nothing Associated Symptoms: Reports bloating, nausea, poor appetite and vomiting; Denies anorexia, belching, change in bowel habits, change in stool character, chills, coffee ground emesis, constipation, GI cramping, diarrhea, dyspepsia, dysuria, excessive flatus, fever(s), heartburn, hematochezia, hematuria, hematemesis, fecal incontinence, loose stools, melena and syncope Review of Systems Const: Denies: fever(s) or chills Card: Denies: chest pain or syncope Resp: Denies: dyspnea GI: Reports: nausea, vomiting and bloating; Denies: abdominal pain, hematemesis, coffee ground emesis, heartburn, diarrhea, constipation, GI cramping, belching, excessive flatus, fecal incontinence, change in bowel habits, change in stool character, hematochezia or melena : Denies: dysuria, urinary frequency, urinary urgency or hematuria Musc: Denies: neck pain or back pain Skin/Breast: Denies: rash PFSH ED PFSH: Medical History Bleeding per rectum Cancer related pain Chronic anticoagulation Colon cancer Colon cancer metastasized to liver Diverticulitis 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 Family History Other CAD (coronary artery disease) Cancer Hyperlipidemia Hypertension Lung disease Psychiatric illness Stroke Denies family history of Diabetes Clotting disorder Dementia Chronic kidney disease (CKD) Suicide Anesthesia complication Bleeding disorder Social History Smoking and tobacco/nicotine status: former use of tobacco/nicotine Quit status (tobacco/nicotine): has quit using Year quit tobacco: August 2022 Former quit date comment: smoked x 10 years Alcohol intake: never Physical Exam Const: GENERAL APPEARANCE: cooperative ORIENTATION/CONSCIOUSNESS: Yes awake, Yes oriented to person, Yes oriented to place and Yes oriented to time HENMT: COMMON NORMALS: normocephalic, atraumatic and hearing grossly normal bilaterally HEAD & SCALP: normocephalic and atraumatic Resp: COMMON NORMALS: normal respiratory effort, No retractions, No use of accessory muscles and clear to auscultation bilaterally AUSCULTATION: clear to auscultation bilaterally Cardio: COMMON NORMALS: regular rate, regular rhythm and No murmurs present (Cardio) RATE: regular rate RHYTHM: regular rhythm GI: COMMON NORMALS: No hepatosplenomegaly present AUSCULTATION: Yes normoactive bowel sounds PALPATION: Yes Tenderness to palpation present (GI) (Epigastric), No Guarding due to palpation present (GI) and Yes No hepatosplenomegaly present OTHER: Colostomy in the left lower quadrant no redness or erythema surrounding no tenderness. Extremity: COMMON NORMALS: normal to inspection, capillary refill normal, no clubbing, cyanosis or edema, no calf tenderness and no pedal edema Neuro: SENSORIUM/ORIENTATION: Yes oriented to person, Yes oriented to place and Yes oriented to time Skin: COMMON NORMALS: no rashes or lesions noted GENERAL SKIN EXAM: no rashes or lesions noted Course Vital Signs: Vital signs: Vital Signs Temperature 98.3 F 06/20/23 08:54 Pulse Rate 80 06/20/23 13:07 Respiratory Rate 18 06/20/23 08:54 Blood Pressure 110/77 06/20/23 13:07 Pulse Oximetry 94 06/20/23 13:07 Oxygen Delivery Me thod Room Air 06/20/23 12:00 MDM - Abdominal Pain Medical Decision Making Patient's pain is improved. Patient has stage IV colon cancer with mets to the liver was causing severe pain. She ran out of her immediate release morphine. Medical Records I reviewed the patient's medical records. Lab Data I reviewed the patient's lab results. 06/20/23 10:27 06/20/23 10:27 Labs/Radiology: Radiology Impressions Chest X-Ray 06/20/23 09:07 IMPRESSION: No acute findings. Laboratory Results WBC 6.85 10^3/uL (3.29-11.43) 06/20/23 10:27 RBC 4.14 10^6/uL (3.85-5.65) 06/20/23 10:27 Hgb 11.60 g/dL (11.27-16.99) 06/20/23 10:27 Hct 36.4 % (36-47) 06/20/23 10:27 MCV 87.9 fl (85-98) 06/20/23 10:27 MCH 28.0 pg (27-33) 06/20/23 10:27 MCHC 31.9 g/dL (30-55) 06/20/23 10:27 RDW 14.9 % (12.1-15.1) 06/20/23 10:27 Plt Count 159 10^3/cmm (157-399) 06/20/23 10:27 MPV 9.2 fL (7.4-10.4) 06/20/23 10:27 Neut % (Auto) 60.6 % 06/20/23 10:27 Lymph % (Auto) 30.5 % 06/20/23 10:27 [place] % (Auto) 5.5 % 06/20/23 10:27 Eos % (Auto) 2.5 % 06/20/23 10:27 Baso % (Auto) 0.6 % 06/20/23 10:27 Neut # (Auto) 4.15 10^3/uL (1.8-7.7) 06/20/23 10:27 Lymph # (Auto) 2.1 10^3/uL (0.8-4.8) 06/20/23 10:27 [place] # (Auto) 0.4 10^3/uL (0.2-0.9) 06/20/23 10:27 Eos # (Auto) 0.2 10^3/uL (0.0-0.8) 06/20/23 10:27 Baso # (Auto) 0.0 10^3/uL (0.0-0.1) 06/20/23 10:27 Nucleated RBC % (auto) 0 % 06/20/23 10:27 Nucleated RBCs # 0.0 /100WBC 06/20/23 10:27 Sodium 137 mmol/L (136-145) 06/20/23 10:27 Potassium 4.5 mmol/L (3.5-5.1) 06/20/23 10:27 Chloride 98 mmol/L (98-107) 06/20/23 10:27 Carbon Dioxide 29 mmol/L (22-29) 06/20/23 10:27 Anion Gap 14.5 (5-19) 06/20/23 10:27 BUN 6 mg/dL (6-20) 06/20/23 10:27 Creatinine 0.3 mg/dL (0.5-0.9) L 06/20/23 10:27 GFR Calculation 234.5 mL/min (90-130) H 06/20/23 10:27 Glucose 97 mg/dL (65-115) 06/20/23 10:27 Calculated Osmolality 282 mOsm/kg (285-295) L 06/20/23 10:27 Calcium 9.7 mg/dL (8.5-10.5) 06/20/23 10:27 Total Bilirubin 0.3 mg/dL (0.15-1.2) 06/20/23 10:27 AST 16 U/L (0-32) 06/20/23 10:27 ALT 7 U/L (0-33) 06/20/23 10:27 Alkaline Phosphatase 117 U/L (35-105) H 06/20/23 10:27 Troponin T Baseline < 6 ng/L (0-10) 06/20/23 10:27 Troponin T 120 Minute 6.0 ng/L (0-10) 06/20/23 12:39 Delta Troponin T 0.14386 ABS# (0-10) 06/20/23 12:39 Total Protein 6.7 g/dL (6.6-8.7) 06/20/23 10:27 Albumin 3.9 g/dL (3.5-5.2) 06/20/23 10:27 Globulin 2.8 g/dL (1.3-4.6) 06/20/23 10:27 All radiology interpretation(s) finalized by discharge Discharge Plan Discharge Patient Disposition: Home Clinical Impression: Colon cancer metastasized to liver Condition: Stable Prescriptions: New morphine 15 mg tablet 15 mg PO Q4H PRN (Reason: pain) 15 Days Qty: 60 0RF No Action morphine 60 mg tablet extended release 60 mg PO Q12H 30 Days Qty: 60 0RF montelukast [Singulair] 10 mg tablet 10 mg PO QAM Qty: 30 2RF clonazepam 1 mg tablet 1 mg PO BID sennosides-docusate sodium [Senna with Docusate Sodium] 8.6-50 mg tablet 2 tab PO BID polyethylene glycol 3350 17 gram/dose powder 17 g PO DAILY morphine 15 mg tablet 15 mg PO .EVERY 4-6 HOURS PRN (Reason: pain) 15 Days Qty: 60 0RF potassium chloride 20 mEq tablet extended release 10 meq PO QAM albuterol sulfate 90 mcg/actuation HFA aerosol inhaler 2 inh inhalation Q8H PRN (Reason: shortness of breath or wheezing) Qty: 8.5 0RF venlafaxine 37.5 mg capsule,extended release 24hr 37.5 mg PO QAM lidocaine-prilocaine 2.5-2.5 % cream See Rx Instructions .ROUTE .COMPLEX Rx Instructions: Apply to port 30-45 minutes prior to port access clonazepam 0.5 mg tablet 1 mg PO BID PRN (Reason: SEVERE ANXIETY) Discharge Orders: Discharge ED (Routine); Ordered 06/20/23 Ordered By: Alexi Aranda Referrals: Clarice Perez MD [Primary Care Provider] - Discharge Diet: Usual diet Discharge Activity: Increase activity as tolerated Patient Instructions: Opioid Safety, Pain Management Activity Restrictions/Additional Instructions: Thank you for choosing [facility] for your healthcare needs today. Please realize this is an emergency room and that we are providing you with a medical screening exam and this may not be complete and all inclusive of all the testing and or work up that you may need to determine your ailment or severity of your illness. It is very important that you follow up as instructed or that you return to the Emergency Department should you have concerns or if your condition changes or worsens in any way. Follow-up with your oncologist as needed we did give you a prescription for the immediate release morphine. Coding Level of Care Code ED Coreroom Foundry Laborer for Alison Groves
[2023-06-20 10:38] LABS: Basophils % 0.6 %; Eosinophils # 0.2 10^3/uL (0.0-0.8); Eosinophils % 2.5 %; Hematocrit 36.4 % (36-47); Lymphocytes # 2.1 10^3/uL (0.8-4.8); Lymphocytes % 30.5 %; Mean Corpuscular HGB Conc 31.9 g/dL (30-55); Mean Corpuscular Volume 87.9 fl (85-98); Mean Platelet Volume 9.2 fL (7.4-10.4); Monocytes # 0.4 10^3/uL (0.2-0.9); Monocytes % 5.5 %; Neutrophils # 4.15 10^3/uL (1.8-7.7); Neutrophils % 60.6 %; Nucleated Red Blood Cells % 0 %; Platelet Count 159 10^3/cmm (157-399); Red Blood Count 4.14 10^6/uL (3.85-5.65); Red Cell Distribution Width 14.9 % (12.1-15.1); White Blood Count 6.85 10^3/uL (3.29-11.43)
[2023-06-20 10:58] LABS: Troponin(5th) Baseline < 6 ng/L (0-10)
[2023-06-20 11:00] VITALS: BP 124/86; PULSE 84; O2SAT 96
[2023-06-20 11:03] LABS: Alanine Aminotransferase 7 U/L (0-33); Albumin Level 3.9 g/dL (3.5-5.2); Alkaline Phosphatase 117 U/L (35-105); Anion Gap 14.5 (5-19); Aspartate Amino Transferase 16 U/L (0-32); Blood Urea Nitrogen 6 mg/dL (6-20); Calcium 9.7 mg/dL (8.5-10.5); Carbon Dioxide 29 mmol/L (22-29); Chloride 98 mmol/L (98-107); Globulin 2.8 g/dL (1.3-4.6); Glomerular Filtration Rate 234.5 mL/min (90-130); Glucose 97 mg/dL (65-115); Osmolality Calculated 282 mOsm/kg (285-295); Potassium 4.5 mmol/L (3.5-5.1); Sodium 137 mmol/L (136-145); Total Bilirubin 0.3 mg/dL (0.15-1.2); Total Protein 6.7 g/dL (6.6-8.7)
--- NOTE | 2023-06-20 11:07 | ECG_ITS ---
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 Measurements Intervals [place] Rate: 85 P: 46 ID: [id number] QRS: 34 QRSD: 80 T: 38 QT: 371 QTc: 443 Interpretive Statements SINUS RHYTHM Compared to ECG 03/28/2023 20:51:40 Sinus tachycardia no longer present Electronically Signed On 06-20-2023 12:03:18 THIRD HELPER by Pawel Marcelino M.D. [id number]
[2023-06-20] MEDS: ondansetron 2 mg/ML SDV 2 mL 4 MG IVP (11:22)
[2023-06-20] MEDS: sodium chloride 0.9% 1,000 ML 999 ML IV (11:22)
[2023-06-20] MEDS: promethazine 25 mg/mL SDV 1 mL IM (11:22)
[2023-06-20] MEDS: HYDROmorphone 1 mg/mL INJ 1 mL IVP (11:48)
[2023-06-20 12:00] VITALS: BP 129/84; PULSE 82; O2SAT 94
[2023-06-20 13:07] VITALS: BP 110/77; PULSE 80; O2SAT 94
[2023-06-20 13:47] LABS: Troponin 5 2HR Delta 0.00001 ABS# (0-10)
== END 2023-06-20 13:00 | disposition home or self-care (01) ==
PROVIDERS: Emergency Provider Family Medicine; PCP Family Medicine
DX: C18.9 Malignant neoplasm of colon, unspecified (principal); C78.7 Secondary malignant neoplasm of liver and intrahepatic bile duct; Z87.891 Personal history of nicotine dependence
CPT/HCPCS: 36415; 71045; 80053; 84484; 85025; 93005; 96361; 96372; 96374; 96375; 99285; J1170; J2405; J2550; J7030

== ENCOUNTER 2023-06-22 18:17 | Emergency (ER) | payer MEDICAID, SELFPAY ==
--- NOTE | 2023-06-22 18:18 | XRR_ITS ---
PROCEDURE INFORMATION: Exam: XR Chest Exam date and time: 06/22/2023 6:35 PM Age: 53 years old Clinical indication: Shortness of breath; Additional info: SOB TECHNIQUE: Imaging protocol: Radiologic exam of the chest. Views: 1 view. COMPARISON: CR XR chest 1V portable [id number] 06/20/2023 10:16 AM FINDINGS: Tubes, catheters and devices: Left subclavian central venous access catheter or port appears unchanged in position prior exam. Lungs: Comparison with 06/20/2023 exam demonstrates chronic retrocardiac left lower lobe bronchiectasis with mucous impaction changes. No consolidation. Pleural spaces: No pleural effusion or pneumothorax. Small amount of chronic apical pleural thickening. Heart/Mediastinum: Cardiac size is within normal limits. Bones/joints: Visualized osseous structures show no acute abnormality. XR/XR chest 1V portable [id number] IMPRESSION: Chronic changes in the retrocardiac left lower lobe and without acute findings.
--- NOTE | 2023-06-22 18:22 | ECG_ITS ---
[facility] Test Date: 2023-06-22 Pat Name: Judi Lam Department: Room: Gender: Female Station Baggage Porter: : 1970 Requested By: Niya Taylor Order Number: [id number] Reading MD: Stefani Gonzalez M.D. Measurements Intervals [place] Rate: 87 P: 56 HI: 145 QRS: 44 QRSD: 72 T: 34 QT: 381 QTc: 461 Interpretive Statements SINUS RHYTHM Nonspecific T wave change Compared to ECG 06/20/2023 11:16:08 No significant changes Electronically Signed On 06-23-2023 0:45:03 OPERATIONS SCHEDULER by Stefani Gonzalez M.D. [id number] f
[2023-06-22 18:24] VITALS: BP 111/73; PULSE 89; RESP 17; TEMP 36.5; O2SAT 97; BMI 20.5
[2023-06-22 19:03] LABS: Basophils # 0.1 10^3/uL (0.0-0.1); Basophils % 0.6 %; Eosinophils # 0.5 10^3/uL (0.0-0.8); Hematocrit 34.2 % (36-47); Lymphocytes % 25.6 %; Mean Corpuscular HGB Conc 31.3 g/dL (30-55); Mean Corpuscular Hemoglobin 27.9 pg (27-33); Mean Corpuscular Volume 89.1 fl (85-98); Mean Platelet Volume 10.1 fL (7.4-10.4); Monocytes # 0.5 10^3/uL (0.2-0.9); Neutrophils # 4.65 10^3/uL (1.8-7.7); Neutrophils % 60.3 %; Nucleated Red Blood Cells % 0 %; Platelet Count 156 10^3/cmm (157-399); Red Blood Count 3.84 10^6/uL (3.85-5.65); Red Cell Distribution Width 15.2 % (12.1-15.1); White Blood Count 7.72 10^3/uL (3.29-11.43)
[2023-06-22 19:10] VITALS: BP 129/77; PULSE 81; RESP 14; O2SAT 95
[2023-06-22 19:27] LABS: Troponin(5th) Baseline < 6 ng/L (0-10)
[2023-06-22 19:35] LABS: Alanine Aminotransferase 7 U/L (0-33); Albumin Level 3.6 g/dL (3.5-5.2); Alkaline Phosphatase 119 U/L (35-105); Aspartate Amino Transferase 20 U/L (0-32); Blood Urea Nitrogen 6 mg/dL (6-20); Calcium 9.1 mg/dL (8.5-10.5); Carbon Dioxide 25 mmol/L (22-29); Globulin 2.8 g/dL (1.3-4.6); Glomerular Filtration Rate 234.5 mL/min (90-130); Glucose 100 mg/dL (65-115); NT Pro B Type Natriuretic Pept 68 pg/mL (0-125); Total Bilirubin 0.2 mg/dL (0.15-1.2); Total Protein 6.4 g/dL (6.6-8.7)
--- NOTE | 2023-06-22 20:11 | ED_ITS ---
HPI - Chest Pain General: Chief Complaint: Chest Pain Stated Complaint: SOB\Chest Pains Time Seen by Provider: 06/22/23 18:52 History of Present Illness: Patient presents to the ER with complaints of chest pain and shortness of breath. Patient states this started this morning. Patient has had multiple similar events in the past. Patient has a history of a PE. Patient is had a r ecent IVC filter placed in she is not on any blood thinners at this time. Patient does follow-up with pulmonology and cardiology. Patient's also has stage IV colon cancer. Patient's last dose of chemo was last week and patient had a filter placed approximately 3 weeks ago. Patient's oxygen is 97% on room air. Review of Systems General: Reports: 10 or more systems reviewed and unremarkable except in HPI and below PFSH ED PFSH: Medical History Bleeding per rectum Cancer related pain Chronic anticoagulation Colon cancer Colon cancer metastasized to liver Diverticulitis 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 Family History Other CAD (coronary artery disease) Cancer Hyperlipidemia Hypertension Lung disease Psychiatric illness Stroke Denies family history of Diabetes Clotting disorder Dementia Chronic kidney disease (CKD) Suicide Anesthesia complication Bleeding disorder Social History Smoking and tobacco/nicotine status: former use of tobacco/nicotine Quit status (tobacco/nicotine): has quit using Year quit tobacco: August 2022 Former quit date comment: smoked x 10 years Alcohol intake: never Physical Exam Const: COMMON NORMALS: no acute distress, average body habitus, patient oriented x3, no limitations, healthy appearing, alert and well nourished HENMT: COMMON NORMALS: normocephalic, atraumatic, hearing grossly normal bilaterally, external ears normal, Normal external nose present, moist oral mucous membranes and oropharynx normal HEAD & SCALP: normocephalic and atraumatic NOSE: Normal external nose present EXTERNAL EAR: Yes external ears normal Neck/C-Spine: COMMON NORMALS: full ROM, no lymphadenopathy, supple, no meningeal signs, no JVD and Thyroid normal THYROID: Thyroid normal Chest: COMMONS NORMALS: normal inspection of the chest and normal palpation of entire chest wall Resp: COMMON NORMALS: normal respiratory effort, No retractions, No use of accessory muscles and clear to auscultation bilaterally AUSCULTATION: clear to auscultation bilaterally Cardio: COMMON NORMALS: no JVD, regular rate, regular rhythm, S1 normal heart sound present, S2 normal heart sound present, No gallops present (Cardio), No clicks present (Cardio), No murmurs present (Cardio) and No rub (Cardio) RATE: regular rate RHYTHM: regular rhythm HEART SOUNDS: S1 normal heart sound present and S2 normal heart sound present GI: COMMON NORMALS: Normal to inspection, nondistended, normoactive bowel sounds present, Soft to palpation, non-tender, No hepatosplenomegaly present and no masses PALPATION: Yes Soft to palpation and Yes No hepatosplenomegaly present Neuro: COMMON NORMALS: patient oriented x3 SENSORIUM/ORIENTATION: Yes alert MENINGEAL SIGNS: Yes no meningeal signs Course Vital Signs: Vital signs: Vital Signs Temperature 97.7 F 06/22/23 18:24 Pulse Rate 79 06/22/23 21:00 Respiratory Rate 12 06/22/23 21:00 Blood Pressure 122/74 06/22/23 21:00 Pulse Oximetry 95 06/22/23 21:00 Oxygen Delivery Me thod Room Air 06/22/23 21:00 MDM - Chest Pain Medical Decision Making Patient presents to the ER with complaints of chest pain and shortness of breath. Patient was worked up in a standard cardiac fashion with serial EKGs a nd serial troponins. All of this was negative. Patient was given 2 doses of morphine for pain control which helped resolved the pain. Patient be discharged home. Differential Diagnosis Unlikely acute massive pulmonary embolism, acute respiratory failure, acute myocardial infarction, cardiac arrest or sudden cardiac Medical Records I reviewed the patient's medical records. Lab Data I reviewed the patient's lab results. 06/22/23 18:55 06/22/23 18:55 Radiology Impressions Chest X-Ray 06/22/23 18:18 IMPRESSION: Chronic changes in the retrocardiac left lower lobe and without acute findings. Laboratory Results WBC 7.72 10^3/uL (3.29-11.43) 06/22/23 18:55 RBC 3.84 10^6/uL (3.85-5.65) L 06/22/23 18:55 Hgb 10.70 g/dL (11.27-16.99) L 06/22/23 18:55 Hct 34.2 % (36-47) L 06/22/23 18:55 MCV 89.1 fl (85-98) 06/22/23 18:55 MCH 27.9 pg (27-33) 06/22/23 18:55 MCHC 31.3 g/dL (30-55) 06/22/23 18:55 RDW 15.2 % (12.1-15.1) H 06/22/23 18:55 Plt Count 156 10^3/cmm (157-399) L 06/22/23 18:55 MPV 10.1 fL (7.4-10.4) 06/22/23 18:55 Neut % (Auto) 60.3 % 06/22/23 18:55 Lymph % (Auto) 25.6 % 06/22/23 18:55 [place] % (Auto) 7.0 % 06/22/23 18:55 Eos % (Auto) 6.0 % 06/22/23 18:55 Baso % (Auto) 0.6 % 06/22/23 18:55 Neut # (Auto) 4.65 10^3/uL (1.8-7.7) 06/22/23 18:55 Lymph # (Auto) 2.0 10^3/uL (0.8-4.8) 06/22/23 18:55 [place] # (Auto) 0.5 10^3/uL (0.2-0.9) 06/22/23 18:55 Eos # (Auto) 0.5 10^3/uL (0.0-0.8) 06/22/23 18:55 Baso # (Auto) 0.1 10^3/uL (0.0-0.1) 06/22/23 18:55 Nucleated RBC % (auto) 0 % 06/22/23 18: Nucleated RBCs # 0.0 /100WBC 06/22/23 18:55 Sodium 137 mmol/L (136-145) 06/22/23 18:55 Potassium 3.8 mmol/L (3.5-5.1) 06/22/23 18:55 Chloride 99 mmol/L (98-107) 06/22/23 18:55 Carbon Dioxide 25 mmol/L (22-29) 06/22/23 18:55 Anion Gap 16.8 (5-19) 06/22/23 18:55 BUN 6 mg/dL (6-20) 06/22/23 18:55 Creatinine 0.3 mg/dL (0.5-0.9) L 06/22/23 18:55 GFR Calculation 234.5 mL/min (90-130) H 06/22/23 18:55 Glucose 100 mg/dL (65-115) 06/22/23 18:55 Calculated Osmolality 282 mOsm/kg (285-295) L 06/22/23 18:55 Calcium 9.1 mg/dL (8.5-10.5) 06/22/23 18:55 Total Bilirubin 0.2 mg/dL (0.15-1.2) 06/22/23 18:55 AST 20 U/L (0-32) 06/22/23 18:55 ALT 7 U/L (0-33) 06/22/23 18:55 Alkaline Phosphatase 119 U/L (35-105) H 06/22/23 18:55 Troponin T Baseline < 6 ng/L (0-10) 06/22/23 18:55 Troponin T 120 Minute 6.0 ng/L (0-10) 06/22/23 21:15 Delta Troponin T 0.57949 ABS# (0-10) 06/22/23 21:15 NT-Pro-B Natriuret Pep 68 pg/mL (0-125) 06/22/23 18:55 Total Protein 6.4 g/dL (6.6-8.7) L 06/22/23 18:55 Albumin 3.6 g/dL (3.5-5.2) 06/22/23 18:55 Globulin 2.8 g/dL (1.3-4.6) 06/22/23 18:55 All radiology interpretation(s) finalized by discharge EKG Data EKG 1: I personally reviewed and interpreted this EKG as follows: EKG interpretation date: 06/22/23 EKG interpretation time: 20:12 Prior EKG tracings: available for review Interpretation: EKG showed ventricular rate 76 bpm, WI interval 136, QRS duration 73, QTc of 424, sinus rhythm, no ST-T wave changes Discharge Plan Discharge Patient Disposition: Home Clinical Impression: Atypical chest pain Condition: Stable Prescriptions: No Action morphine 60 mg tablet extended release 60 mg PO Q12H 30 Days Qty: 60 0RF montelukast [Singulair] 10 mg tablet 10 mg PO QAM Qty: 30 2RF clonazepam 1 mg tablet 1 mg PO BID sennosides-docusate sodium [Senna with Docusate Sodium] 8.6-50 mg tablet 2 tab PO BID polyethylene glycol 3350 17 gram/dose powder 17 g PO DAILY morphine 15 mg tablet 15 mg PO .EVERY 4-6 HOURS PRN (Reason: pain) 15 Days Qty: 60 0RF potassium chloride 20 mEq tablet extended release 10 meq PO QAM albuterol sulfate 90 mcg/actuation HFA aerosol inhaler 2 inh inhalation Q8H PRN (Reason: shortness of breath or wheezing) Qty: 8.5 0RF venlafaxine 37.5 mg capsule,extended release 24hr 37.5 mg PO QAM lidocaine-prilocaine 2.5-2.5 % cream See Rx Instructions .ROUTE .COMPLEX Rx Instructions: Apply to port 30-45 minutes prior to port access clonazepam 0.5 mg tablet 1 mg PO BID PRN (Reason: SEVERE ANXIETY) morphine 15 mg tablet 15 mg PO Q4H PRN (Reason: pain) 15 Days Qty: 60 0RF Discharge Orders: Discharge ED (Routine); Ordered 06/22/23 Ordered By: Pelon León Referrals: Clarice Perez MD [Primary Care Provider] - 1 week Patient Instructions: Chest Pain (ED) Activity Restrictions/Additional Instructions: your work-up in ER was benign. It is felt that your chest pain is not cardiac in nature. Please follow-up with your family practice physician for further evaluation and treatment. If your chest pain worsens please Coding Level of Care Code ED Table Top Tile Setter for Alison Groves
--- NOTE | 2023-06-22 20:18 | ECG_ITS ---
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 Measurements Intervals [place] Rate: 76 P: 41 CA: 136 QRS: 37 QRSD: 73 T: 31 QT: 393 QTc: 444 Interpretive Statements SINUS RHYTHM Compared to ECG 06/22/2023 18:22:11 No significant changes Electronically Signed On 06-23-2023 0:48:35 RUFFLER by Stefani Gonzalez M.D. [id number]
[2023-06-22] MEDS: ondansetron 2 mg/ML SDV 2 mL 4 MG IVP (20:42)
[2023-06-22 20:53] VITALS: RESP 12; O2SAT 94
[2023-06-22] MEDS: morphine 4 mg/mL SDV 1 mL IVP (20:53)
[2023-06-22 20:57] VITALS: BP 117/73; PULSE 82; RESP 14; O2SAT 96
[2023-06-22 21:00] VITALS: BP 122/74; PULSE 79; RESP 12; O2SAT 95
[2023-06-22 21:29] LABS: Anion Gap 16.8 (5-19); Chloride 99 mmol/L (98-107); Osmolality Calculated 282 mOsm/kg (285-295); Potassium 3.8 mmol/L (3.5-5.1); Sodium 137 mmol/L (136-145)
[2023-06-22 21:51] LABS: Troponin 5 2HR Delta 0.00001 ABS# (0-10)
[2023-06-22 22:41] VITALS: BP 122/74; PULSE 79; RESP 12; TEMP 36.5; O2SAT 95
== END 2023-06-22 22:43 | disposition home or self-care (01) ==
PROVIDERS: Emergency Medicine; Emergency Provider Emergency Medicine; PCP Family Medicine
DX: R07.89 Other chest pain (principal); Z87.891 Personal history of nicotine dependence; Z85.038 Personal history of other malignant neoplasm of large intestine; Z85.05 Personal history of malignant neoplasm of liver
CPT/HCPCS: 71045; 80053; 83880; 84484; 85025; 93005; 96374; 96375; 99285; J1642; J2270; J2405

== ENCOUNTER 2023-06-23 18:33 | Emergency (ER) | payer MEDICAID, SELFPAY ==
[2023-06-23 18:40] VITALS: BP 117/83; PULSE 86; RESP 17; TEMP 37.2; O2SAT 96; BMI 20.5
[2023-06-23 19:09] VITALS: BP 133/73; PULSE 77; RESP 12; O2SAT 95; O2SAT 96
--- NOTE | 2023-06-23 19:26 | W.ED.ABDPA2 ---
HPI - Abdominal Pain General: Chief Complaint: Abdominal Pain Stated Complaint: abdomen pain Time Seen by Provider: 06/23/23 19:24 History of Present Illness: Patient presents to the ER with complaints of increased abdominal pain today. Patient was seen last night for increased upper abdominal/chest pain and worked up. It was noted then patient was unable to get her short acting morphine prescription filled because she had already used it up and insurance would not pay for it. Although she had a prescription in hand from the ER from earlier. Patient states this pain is more or less the same pain and she is already used her long-acting morphine and Klonopin and she is still in pain. Lab work was reviewed from last night. Review of Systems General: Reports: 10 or more systems reviewed and unremarkable except in HPI and below PFSH ED PFSH: Medical History Bleeding per rectum Cancer related pain Chronic anticoagulation Colon cancer Colon cancer metastasized to liver Diverticulitis 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 Family History Other CAD (coronary artery disease) Cancer Hyperlipidemia Hypertension Lung disease Psychiatric illness Stroke Denies family history of Diabetes Clotting disorder Dementia Chronic kidney disease (CKD) Suicide Anesthesia complication Bleeding disorder Social History Smoking and tobacco/nicotine status: former use of tobacco/nicotine Quit status (tobacco/nicotine): has quit using Year quit tobacco: August 2022 Former quit date comment: smoked x 10 years Alcohol intake: never Physical Exam Const: COMMON NORMALS: no acute distress, average body habitus, patient oriented x3, no limitations, healthy appearing, alert and well nourished HENMT: COMMON NORMALS: normocephalic, atraumatic, hearing grossly normal bilaterally, external ears normal, Normal external nose present, moist oral mucous membranes and oropharynx normal HEAD & SCALP: normocephalic and atraumatic NOSE: Normal external nose present EXTERNAL EAR: Yes external ears normal Neck/C-Spine: COMMON NORMALS: no JVD Chest: COMMONS NORMALS: normal inspection of the chest and normal palpation of entire chest wall Resp: COMMON NORMALS: normal respiratory effort, No retractions, No use of accessory muscles and clear to auscultation bilaterally AUSCULTATION: clear to auscultation bilaterally Cardio: COMMON NORMALS: no JVD, regular rate, regular rhythm, S1 normal heart sound present, S2 normal heart sound present, No gallops present (Cardio), No clicks present (Cardio), No murmurs present (Cardio) and No rub (Cardio) RATE: regular rate RHYTHM: regular rhythm HEART SOUNDS: S1 normal heart sound present and S2 normal heart sound present GI: COMMON NORMALS: Normal to inspection, nondistended, normoactive bowel sounds present, Soft to palpation, No hepatosplenomegaly present and no masses; negative for non-tender (Minimally diffusely tender) PALPATION: Yes Soft to palpation and Yes No hepatosplenomegaly present : COMMON NORMALS: Yes no CVA tenderness BLADDER/KIDNEY EXAM: Yes no CVA tenderness Back/Pelvis: COMMON NORMALS: no CVA tenderness Neuro: COMMON NORMALS: patient oriented x3 SENSORIUM/ORIENTATION: Yes alert Course Vital Signs: Vital signs: Vital Signs Temperature 98.9 F 06/23/23 18:40 Pulse Rate 77 06/23/23 19:09 Respiratory Rate 12 06/23/23 19:58 Blood Pressure 133/73 06/23/23 19:09 Pulse Oximetry 95 06/23/23 19:58 Oxygen Delivery Me thod Room Air 06/23/23 19:09 MDM - Abdominal Pain Medical Decision Making Patient has stage IV colon cancer and per previous record was noted to have ran out of her short acting morphine for her pain control but insurance will not fill it. Lab work was reviewed from her visit last night for chest pain. Patient was given half a milligram of Dilaudid and 4 mg of Zofran IM and pain has decreased from a 9 to a 6. Patient be discharged home to follow back up with her PCP on an as-needed basis. Differential Diagnosis Likely abdominal pain; Unlikely acute appendicitis, calculus of kidney, constipation, diverticulitis, endometriosis, gastroenteritis, pancreatitis or small bowel obstruction Medical Records I reviewed the patient's medical records. Lab Data I reviewed the patient's lab results. No radiology studies performed this visit Discharge Plan Discharge Patient Disposition: Home Clinical Impression: Abdominal pain Qualifiers: Abdominal location: unspecified location Qualified Code(s): R10.9 - Unspecified abdominal pain Condition: Stable Prescriptions: No Action morphine 60 mg tablet extended release 60 mg PO Q12H 30 Days Qty: 60 0RF montelukast [Singulair] 10 mg tablet 10 mg PO QAM Qty: 30 2RF clonazepam 1 mg tablet 1 mg PO BID sennosides-docusate sodium [Senna with Docusate Sodium] 8.6-50 mg tablet 2 tab PO BID polyethylene glycol 3350 17 gram/dose powder 17 g PO DAILY morphine 15 mg tablet 15 mg PO .EVERY 4-6 HOURS PRN (Reason: pain) 15 Days Qty: 60 0RF potassium chloride 20 mEq tablet extended release 10 meq PO QAM albuterol sulfate 90 mcg/actuation HFA aerosol inhaler 2 inh inhalation Q8H PRN (Reason: shortness of breath or wheezing) Qty: 8.5 0RF venlafaxine 37.5 mg capsule,extended release 24hr 37.5 mg PO QAM lidocaine-prilocaine 2.5-2.5 % cream See Rx Instructions .ROUTE .COMPLEX Rx Instructions: Apply to port 30-45 minutes prior to port access clonazepam 0.5 mg tablet 1 mg PO BID PRN (Reason: SEVERE ANXIETY) morphine 15 mg tablet 15 mg PO Q4H PRN (Reason: pain) 15 Days Qty: 60 0RF Discharge Orders: Discharge ED (Routine); Ordered 06/23/23 Ordered By: Pelon León Referrals: Clarice Perez MD [Primary Care Provider] - 1 week Patient Instructions: Abdominal Pain (ED) Activity Restrictions/Additional Instructions: Please continue take your pain medicine as previously prescribed. Please follow-up with your primary care physician for your chronic pain as you may need the dosing adjusted of your short and long-acting pain medicine to cover your pain better or get insurance to pay for it. Coding Level of Care Code ED Extract [facility] for [facility]
[2023-06-23 19:58] VITALS: RESP 12; O2SAT 95
[2023-06-23] MEDS: ondansetron 2 mg/ML SDV 2 mL 4 MG IM (19:58)
[2023-06-23] MEDS: HYDROmorphone 1 mg/mL INJ 1 mL 0.5 MG IM (19:58)
== END 2023-06-23 20:38 | disposition home or self-care (01) ==
PROVIDERS: Emergency Provider Emergency Medicine; PCP Family Medicine
DX: R10.10 Upper abdominal pain, unspecified (principal); Z87.891 Personal history of nicotine dependence; Z85.038 Personal history of other malignant neoplasm of large intestine; Z85.05 Personal history of malignant neoplasm of liver
CPT/HCPCS: 96372; 99284; J1170; J2405

== ENCOUNTER 2023-07-04 19:47 | Emergency (ER) | payer MEDICAID, SELFPAY ==
[2023-07-04 20:28] VITALS: BP 144/88; PULSE 113; RESP 20; TEMP 36.7; O2SAT 96; BMI 20.5
--- NOTE | 2023-07-04 20:45 | ED_ITS ---
HPI - Abdominal Pain General: Chief Complaint: Abdominal Pain Stated Complaint: ABD Pain\N\V Time Seen by Provider: 07/04/23 20:44 History of Present Illness: 53-year-old female comes in today with generalized abdominal pain. Patient has a history of metastatic colon cancer. Patient does have a colostomy and reports stool production. Patient appears chronically ill but nontoxic. Patient appears in moderate to severe pain. Patient reports pain medicine at home is not controlling her pain. Patient reports no fever but chills. Patient reports some difficulty with urination. Associated Symptoms: Reports chills; Denies constipation, diarrhea, fever(s), nausea and vomiting Review of Systems 2 General: Reports: 10 or more systems reviewed and unremarkable except in HPI and below Const: Reports: chills; Denies: fever(s) Card: Denies: chest pain Resp: Denies: dyspnea GI: Reports: abdominal pain; Denies: nausea, vomiting, diarrhea or constipation : Reports: difficulty voiding Musc: Denies: neck pain or back pain Skin/Breast: Denies: rash PFSH ED PFSH: Medical History Bleeding per rectum Cancer related pain Chronic anticoagulation Colon cancer Colon cancer metastasized to liver Diverticulitis 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 Family History Other CAD (coronary artery disease) Cancer Hyperlipidemia Hypertension Lung disease Psychiatric illness Stroke Denies family history of Diabetes Clotting disorder Dementia Chronic kidney disease (CKD) Suicide Anesthesia complication Bleeding disorder Social History Smoking and tobacco/nicotine status: former use of tobacco/nicotine Quit status (tobacco/nicotine): has quit using Year quit tobacco: August 2022 Former quit date comment: smoked x 10 years Alcohol intake: never Physical Exam Const: COMMON NORMALS: alert HENMT: COMMON NORMALS: normocephalic HEAD & SCALP: normocephalic MOUTH: Normal oral and palatal mucosa present Neck/C-Spine: COMMON NORMALS: no meningeal signs Resp: COMMON NORMALS: normal respiratory effort and clear to auscultation bilaterally AUSCULTATION: clear to auscultation bilaterally Cardio: COMMON NORMALS: regular rate and regular rhythm RATE: regular rate RHYTHM: regular rhythm GI: COMMON NORMALS: Soft to palpation AUSCULTATION: Yes normoactive bowel sounds PALPATION: Yes Soft to palpation and Yes Tenderness to palpation present (GI) (Nonlocalized) Back/Pelvis: COMMON NORMALS: thoracic and lumbar spine normal to inspection Extremity: COMMON NORMALS: full ROM Neuro: SENSORIUM/ORIENTATION: Yes alert MENINGEAL SIGNS: Yes no meningeal signs Skin: COMMON NORMALS: turgor normal GENERAL SKIN EXAM: turgor normal Course Vital Signs: Vital signs: Vital Signs Temperature 98.1 F 07/04/23 20:28 Pulse Rate 103 H 07/04/23 21:32 Respiratory Rate 16 07/04/23 21:32 Blood Pressure 137/95 07/04/23 21:32 Pulse Oximetry 91 07/04/23 21:32 Oxygen Delivery Me thod Room Air 07/04/23 21:32 MDM - Abdominal Pain Medical Decision Making 53-year-old female comes in today with complaints of poor control of abdominal pain related to cancer. Patient has oral medications at home but does not seem to control her pain. Patient appears nontoxic. Abdomen soft. Colostomy bag is intact centrally without any signs of redness or induration surrounding it. Bowel sounds are present. Vital signs are normal except for some mild elevation in pulse. Differential diagnosis includes bowel obstruction, cancer related pain, anxiety. Pain was relieved with 1 mg hydromorphone. Laboratory values were normal. Chest x-ray was unremarkable and abdominal films were unremarkable. Believe patient probably has breakthrough pain related to cancer. Recommend contacting primary care or specialist regarding further evaluation and treatment of pain. Patient reported understanding and agreed to plan. Lab Data 07/04/23 21:06 07/04/23 21:06 Labs/Radiology: Radiology Impressions Chest/Abdomen X-ray 07/04/23 20:48 IMPRESSION: 1. Negative for bowel dilation to indicate obstruction. 2. Left-sided Port-A-Cath with tip at the atrial caval junction. 3. Inferior vena cava filter. 4. Stent material seen over the left pelvis. 5. Right upper quadrant surgical clips. COMMENTS: For patients with an IVC filter, recommend assessment for a management plan for the patient's IVC filter. If there is no established management plan, recommend referral to an interventional clinician on a nonemergent basis for evaluation. Laboratory Results WBC 6.35 10^3/uL (3.29-11.43) 07/04/23 21:06 RBC 3.98 10^6/uL (3.85-5.65) 07/04/23 21:06 Hgb 11.30 g/dL (11.27-16.99) 07/04/23 21:06 Hct 34.9 % (36-47) L 07/04/23 21:06 MCV 87.7 fl (85-98) 07/04/23 21:06 MCH 28.4 pg (27-33) 07/04/23 21:06 MCHC 32.4 g/dL (30-55) 07/04/23 21:06 RDW 15.8 % (12.1-15.1) H 07/04/23 21:06 Plt Count 194 10^3/cmm (157-399) 07/04/23 21:06 MPV 9.3 fL (7.4-10.4) 07/04/23 21:06 Neut % (Auto) 55.0 % 07/04/23 21:06 Lymph % (Auto) 22.2 % 07/04/23 21:06 [place] % (Auto) 19.5 % 07/04/23 21:06 Eos % (Auto) 2.2 % 07/04/23 21:06 Baso % (Auto) 0.6 % 07/04/23 21:06 Neut # (Auto) 3.49 10^3/uL (1.8-7.7) 07/04/23 21:06 Lymph # (Auto) 1.4 10^3/uL (0.8-4.8) 07/04/23 21:06 [place] # (Auto) 1.2 10^3/uL (0.2-0.9) H 07/04/23 21:06 Eos # (Auto) 0.1 10^3/uL (0.0-0.8) 07/04/23 21:06 Baso # (Auto) 0.0 10^3/uL (0.0-0.1) 11/20/23 21:06 Nucleated RBC % (auto) 0 % 07/04/23 21:06 Nucleated RBCs # 0.0 /100WBC 07/04/23 21:06 Sodium 138 mmol/L (136-145) 07/04/23 21:06 Potassium 4.0 mmol/L (3.5-5.1) 07/04/23 21:06 Chloride 100 mmol/L (98-107) 07/04/23 21:06 Carbon Dioxide 27 mmol/L (22-29) 07/04/23 21:06 Anion Gap 15.0 (5-19) 07/04/23 21:06 BUN 6 mg/dL (6-20) 07/04/23 21:06 Creatinine 0.5 mg/dL (0.5-0.9) 07/04/23 21:06 GFR Calculation 130.1 mL/min (90-130) H 07/04/23 21:06 Glucose 103 mg/dL (65-115) 07/04/23 21:06 Calculated Osmolality 284 mOsm/kg (285-295) L 07/04/23 21:06 Calcium 9.4 mg/dL (8.5-10.5) 07/04/23 21:06 Total Bilirubin 0.4 mg/dL (0.15-1.2) 07/04/23 21:06 AST 19 U/L (0-32) 07/04/23 21:06 ALT 6 U/L (0-33) 07/04/23 21:06 Alkaline Phosphatase 148 U/L (35-105) H 07/04/23 21:06 Total Protein 6.8 g/dL (6.6-8.7) 07/04/23 21:06 Albumin 3.1 g/dL (3.5-5.2) L 07/04/23 21:06 Globulin 3.7 g/dL (1.3-4.6) 07/04/23 21:06 Urine Color Yellow (Yellow) 07/04/23 21:44 Urine Appearance Cloudy (CLEAR) A 07/04/23 21:44 Urine pH 9 (5-7) H 07/04/23 21:44 Ur Specific [place] 1.010 (1.005-1.030) 07/04/23 21:44 Urine Protein Neg (Negative) 07/04/23 21:44 Urine Glucose (UA) Norm (Normal) 07/04/23 21:44 Urine Ketones Negative (Negative) 07/04/23 21:44 Urine Blood Neg (Negative) 07/04/23 21:44 Urine Nitrate Negative (Negative) 07/04/23 21:44 Urine Bilirubin Neg (Negative) 07/04/23 21:44 Prot Sulfosalicylic Acd Negative (Negative) 07/04/23 21:44 Urine Urobilinogen Norm mg/dL (Negative) 07/04/23 21:44 Ur Leukocyte Esterase Negative (Negative) 07/04/23 21:44 Urine RBC 0-4 /hpf (0-2) H 07/04/23 21:44 Urine WBC 0-4 /hpf (0-5) H 07/04/23 21:44 Ur Squamous Epith Cells 0-4 /hpf (0-5) H 07/04/23 21:44 Amorphous Sediment 4+ /hpf 07/04/23 21:44 Urine Bacteria Trace /hpf (NONE) 07/04/23 21:44 All radiology interpretation(s) finalized by discharge Discharge Plan Discharge Patient Disposition: Home Clinical Impression: Cancer-related breakthrough pain Condition: Stable Prescriptions: No Action morphine 60 mg tablet extended release 60 mg PO Q12H 30 Days Qty: 60 0RF montelukast [Singulair] 10 mg tablet 10 mg PO QAM Qty: 30 2RF clonazepam 1 mg tablet 1 mg PO BID sennosides-docusate sodium [Senna with Docusate Sodium] 8.6-50 mg tablet 2 tab PO BID polyethylene glycol 3350 17 gram/dose powder 17 g PO DAILY morphine 15 mg tablet 15 mg PO .EVERY 4-6 HOURS PRN (Reason: pain) 15 Days Qty: 60 0RF potassium chloride 20 mEq tablet extended release 10 meq PO QAM albuterol sulfate 90 mcg/actuation HFA aerosol inhaler 2 inh inhalation Q8H PRN (Reason: shortness of breath or wheezing) Qty: 8.5 0RF venlafaxine 37.5 mg capsule,extended release 24hr 37.5 mg PO QAM lidocaine-prilocaine 2.5-2.5 % cream See Rx Instructions .ROUTE .COMPLEX Rx Instructions: Apply to port 30-45 minutes prior to port access clonazepam 0.5 mg tablet 1 mg PO BID PRN (Reason: SEVERE ANXIETY) morphine 15 mg tablet 15 mg PO Q4H PRN (Reason: pain) 15 Days Qty: 60 0RF Discharge Orders: Discharge ED (Routine); Ordered 07/04/23 Ordered By: James Maurer Referrals: Clarice Perez MD [Primary Care Provider] - Discharge Diet: Usual diet Discharge Activity: Increase activity as tolerated Patient Instructions: Cancer Pain (ED) Activity Restrictions/Additional Instructions: Follow-up with primary care or specialist regarding pain control. Return to ER for new concerns such as high fever or severe shortness of breath. Coding Level of Care Code ED Spa Director/[facility] for [facility]
--- NOTE | 2023-07-04 20:48 | XRR_ITS ---
PROCEDURE INFORMATION: Exam: XR Abdomen Exam date and time: 07/04/2023 8:52 PM Age: 53 years old Clinical indication: Abdominal pain; Acute; Prior surgery; Surgery date: 6+ months; Surgery type: Port pelvic stent ileostomy gb; Additional info: Abd pain TECHNIQUE: Imaging protocol: Radiologic exam of the abdomen. Views: 2 Views. Upright and supine views. COMPARISON: CT abdomen pelvis w con* [id number] 03/19/2023 10:32 PM FINDINGS: Tubes, catheters and devices: Left-sided Port-A-Cath with tip at the atrial caval junction. Gastrointestinal tract: Normal. No bowel dilation. Intraperitoneal space: Right upper quadrant surgical clips. Vasculature: Inferior vena cava filter. Stent material seen over the left pelvis. Bones/joints: Unremarkable for age. XR/XR acute abdomen series [id number] IMPRESSION: 1. Negative for bowel dilation to indicate obstruction. 2. Left-sided Port-A-Cath with tip at the atrial caval junction. 3. Inferior vena cava filter. 4. Stent material seen over the left pelvis. 5. Right upper quadrant surgical clips. COMMENTS: For patients with an IVC filter, recommend assessment for a management plan for the patient's IVC filter. If there is no established management plan, recommend referral to an interventional clinician on a nonemergent basis for evaluation.
[2023-07-04 21:10] LABS: Basophils % 0.6 %; Eosinophils # 0.1 10^3/uL (0.0-0.8); Eosinophils % 2.2 %; Hematocrit 34.9 % (36-47); Lymphocytes # 1.4 10^3/uL (0.8-4.8); Lymphocytes % 22.2 %; Mean Corpuscular HGB Conc 32.4 g/dL (30-55); Mean Corpuscular Hemoglobin 28.4 pg (27-33); Mean Corpuscular Volume 87.7 fl (85-98); Mean Platelet Volume 9.3 fL (7.4-10.4); Monocytes # 1.2 10^3/uL (0.2-0.9); Monocytes % 19.5 %; Neutrophils # 3.49 10^3/uL (1.8-7.7); Nucleated Red Blood Cells % 0 %; Platelet Count 194 10^3/cmm (157-399); Red Blood Count 3.98 10^6/uL (3.85-5.65); Red Cell Distribution Width 15.8 % (12.1-15.1); White Blood Count 6.35 10^3/uL (3.29-11.43)
[2023-07-04 21:22] VITALS: RESP 20
[2023-07-04] MEDS: HYDROmorphone 1 mg/mL INJ 1 mL IVP ×2 (21:22→23:09)
[2023-07-04 21:24] VITALS: BP 146/93; PULSE 98; RESP 22; O2SAT 93
[2023-07-04 21:26] LABS: Alanine Aminotransferase 6 U/L (0-33); Albumin Level 3.1 g/dL (3.5-5.2); Alkaline Phosphatase 148 U/L (35-105); Aspartate Amino Transferase 19 U/L (0-32); Blood Urea Nitrogen 6 mg/dL (6-20); Calcium 9.4 mg/dL (8.5-10.5); Carbon Dioxide 27 mmol/L (22-29); Chloride 100 mmol/L (98-107); Globulin 3.7 g/dL (1.3-4.6); Glomerular Filtration Rate 130.1 mL/min (90-130); Glucose 103 mg/dL (65-115); Osmolality Calculated 284 mOsm/kg (285-295); Sodium 138 mmol/L (136-145); Total Bilirubin 0.4 mg/dL (0.15-1.2); Total Protein 6.8 g/dL (6.6-8.7)
[2023-07-04 21:32] VITALS: BP 137/95; PULSE 103; RESP 16; O2SAT 91
[2023-07-04 22:05] LABS: Add Urine Microscopic? YES; Bilirubin Urine Neg (Negative); Blood Urine Neg (Negative); Glucose Urine UA Norm (Normal); Ketones Urine Negative (Negative); Leukocyte Esterase Urine Negative (Negative); Nitrate Urine Negative (Negative); Protein Urine Neg (Negative); RBC Urine 0-4 /hpf (0-2); Squamous Epithelial Cell Urine 0-4 /hpf (0-5); Sulfosalicylic Acid Urine Negative (Negative); Urine Appearance Cloudy (CLEAR); Urine Color Yellow (Yellow); Urobilinogen Urine Norm (Negative); WBC Urine 0-4 /hpf (0-5); pH Urine 9 (5-7)
[2023-07-04 22:06] LABS: Add Urine Culture? No; Amorphous Sediment Urine 4+ /hpf; Bacteria Urine TRACE /hpf
[2023-07-04 23:09] VITALS: RESP 22
[2023-07-04 23:37] VITALS: BP 127/91; PULSE 80; RESP 16
== END 2023-07-04 23:44 | disposition home or self-care (01) ==
PROVIDERS: Emergency Provider Nurse Practitioner Family; PCP Family Medicine
DX: G89.3 Neoplasm related pain (acute) (chronic) (principal); Z87.891 Personal history of nicotine dependence; Z85.038 Personal history of other malignant neoplasm of large intestine; Z85.05 Personal history of malignant neoplasm of liver
CPT/HCPCS: 74022; 80053; 81001; 85025; 96374; 96375; 96376; 99284; J1170; J1642

== ENCOUNTER 2023-07-06 14:34 | Outpatient (CLI) | payer MEDICAID, SELFPAY ==
[2023-07-06] MEDS: iohexol 350 mg/mL 500 mL Btl (per mL) PO (15:36)
--- NOTE | 2023-07-06 17:30 | CTR_ITS ---
PROCEDURE INFORMATION: Exam: CT Chest With Contrast; Diagnostic Exam date and time: 07/06/2023 3:54 PM Age: 53 years old Clinical indication: Abdominal pain; Generalized; Other: Chest/abd/vaginal and rectal area pain; Prior surgery; Surgery date: 6+ months; Surgery type: Port, gary filter, gb, colon, ostomy; Patient HX: HX of colon mets; Additional info: Compare to previous, please complete within 1 week so it will be completed prior TECHNIQUE: Imaging protocol: Diagnostic computed tomography of the chest with contrast. Radiation optimization: All CT scans at this facility use at least one of these dose optimization techniques: automated exposure control; mA and/or kV adjustment per patient size (includes targeted exams where dose is matched to clinical indication); or iterative reconstruction. Contrast material: OMNI 350; Contrast volume: 95 ml; Contrast route: INTRAVENOUS (IV); REPORTING DATA: Count of CT and Cardiac NM exams in prior 12 months: This patient has received 12 known CTs and 0 known cardiac nuclear medicine studies in the 12 months prior to the current study. COMPARISON: CT angio chest PE protcl [id number] 03/28/2023 7:11 PM RADIATION DOSE METRICS: Total DLP (mGy-cm): 459.31 FINDINGS: Lungs: Similar left lower lobe obstruction expansion of multiple lower lobe bronchi. Mild emphysematous changes. No new focal consolidation. Pleural spaces: No pneumothorax or pleural effusion. Heart: No cardiomegaly. No pericardial effusion. Lymph nodes: No enlarged lymph nodes. Vasculature: No aortic aneurysm. Bones/joints: No acute findings Soft tissues: No acute findings. PROCEDURE INFORMATION: Exam: CT Abdomen And Pelvis With Contrast Exam date and time: 07/06/2023 3:54 PM Age: 53 years old Clinical indication: Abdominal pain; Generalized; Other: Chest/abd/vaginal and rectal area pain; Prior surgery; Surgery date: 6+ months; Surgery type: Port, gary filter, gb, colon, ostomy; Patient HX: HX of colon mets; Additional info: Compare to previous, please complete within 1 week so it will be completed prior TECHNIQUE: Imaging protocol: Computed tomography of the abdomen and pelvis with contrast. Radiation optimization: All CT scans at this facility use at least one of these dose optimization techniques: automated exposure control; mA and/or kV adjustment per patient size (includes targeted exams where dose is matched to clinical indication); or iterative reconstruction. Contrast material: OMNI 350; Contrast volume: 95 ml; Contrast route: INTRAVENOUS (IV); REPORTING DATA: Count of CT and Cardiac NM exams in prior 12 months: This patient has received 12 known CTs and 0 known cardiac nuclear medicine studies in the 12 months prior to the current study. COMPARISON: CT abdomen pelvis w con* [id number] 03/19/2023 10:32 PM RADIATION DOSE METRICS: Total DLP (mGy-cm): 459.31 FINDINGS: Liver: New and enlarging hepatic lesions. Largest example 3.3 cm right hepatic lesion on series 3, image 53 previously measured 1.2 cm Gallbladder and bile ducts: Cholecystectomy. Pancreas: No ductal dilation. Spleen: No splenomegaly. Adrenal glands: No mass. Kidneys and ureters: Severe left-sided hydroureteronephrosis from the distal ureter just before the UVJ, no obstructing stone. Asymmetric nephrogram likely related. Left renal cysts. Stomach and bowel: No obstruction. Increased thickening of the distal colon between the endoluminal stent and ostomy such as on series 5, image 50. Appendix: No evidence of appendicitis. Intraperitoneal space: No free air. No significant fluid collection. Vasculature: No abdominal aortic aneurysm. IVC filter in place. Lymph nodes: 10 mm left periaortic lymph node on series 5, image 40. 2.3 cm right iliac necrotic node on series 5, image 57, sagittal image 21. Urinary bladder: Decompressed. Reproductive: Unremarkable as visualized. Bones/joints: Degenerative changes without acute findings. Soft tissues: Unremarkable. CT/CT chest abdpel w/*[id number] IMPRESSION: Similar left lower lobe airway obstruction. No new focal consolidation. IMPRESSION: Disease progression with new and increased hepatic lesions and abdominopelvic adenopathy. Indistinct soft tissue thickening about the colon between the endoluminal stent and ostomy, concerning for progression here as well. Severe left-sided hydroureteronephrosis extending from the distal ureter just before the UVJ. No obstructing stone.
== END 2023-07-06 14:35 | disposition home or self-care (01) ==
LOC: RAD 14:34
PROVIDERS: PCP Family Medicine; Visit Provider Internal Medicine Medical Oncology
DX: C18.9 Malignant neoplasm of colon, unspecified (principal); C78.7 Secondary malignant neoplasm of liver and intrahepatic bile duct; N13.30 Unspecified hydronephrosis
CPT/HCPCS: 71260; 74177; Q9967

== ENCOUNTER 2023-07-12 09:41 | Oncology outpatient (recurring) (ONCR) | payer MEDICAID, SELFPAY ==
[2023-07-12 09:57] VITALS: BP 155/97; PULSE 122; RESP 16; TEMP 37.1; O2SAT 93
[2023-07-12 10:32] LABS: Basophils # 0.1 10^3/uL (0.0-0.1); Basophils % 0.9 %; Eosinophils # 0.2 10^3/uL (0.0-0.8); Eosinophils % 1.7 %; Hematocrit 37.8 % (36-47); Lymphocytes # 2.4 10^3/uL (0.8-4.8); Lymphocytes % 24.1 %; Mean Corpuscular HGB Conc 31.2 g/dL (30-55); Mean Corpuscular Hemoglobin 27.5 pg (27-33); Mean Corpuscular Volume 88.1 fl (85-98); Mean Platelet Volume 9.3 fL (7.4-10.4); Monocytes # 0.9 10^3/uL (0.2-0.9); Neutrophils # 6.43 10^3/uL (1.8-7.7); Neutrophils % 63.9 %; Nucleated Red Blood Cells % 0 %; Platelet Count 280 10^3/cmm (157-399); Red Blood Count 4.29 10^6/uL (3.85-5.65); Red Cell Distribution Width 15.5 % (12.1-15.1); White Blood Count 10.05 10^3/uL (3.29-11.43)
[2023-07-12 10:47] LABS: Alanine Aminotransferase < 5 U/L (0-33); Albumin Level 3.6 g/dL (3.5-5.2); Alkaline Phosphatase 165 U/L (35-105); Anion Gap 17.1 (5-19); Aspartate Amino Transferase 17 U/L (0-32); Blood Urea Nitrogen 7 mg/dL (6-20); Carbon Dioxide 28 mmol/L (22-29); Chloride 95 mmol/L (98-107); Globulin 3.6 g/dL (1.3-4.6); Glomerular Filtration Rate 130.1 mL/min (90-130); Glucose 120 mg/dL (65-115); Osmolality Calculated 281 mOsm/kg (285-295); Potassium 4.1 mmol/L (3.5-5.1); Sodium 136 mmol/L (136-145); Total Bilirubin 0.3 mg/dL (0.15-1.2); Total Protein 7.2 g/dL (6.6-8.7)
== END 2023-07-14 23:59 | disposition home or self-care (01) ==
PROVIDERS: PCP Family Medicine; Visit Provider Internal Medicine Medical Oncology
DX: C18.9 Malignant neoplasm of colon, unspecified; Z45.2 Encounter for adjustment and management of vascular access device; R06.00 Dyspnea, unspecified; C78.7 Secondary malignant neoplasm of liver and intrahepatic bile duct; R11.0 Nausea; Z45.1 Encounter for adjustment and management of infusion pump; C18.7 Malignant neoplasm of sigmoid colon; Z51.11 Encounter for antineoplastic chemotherapy
CPT/HCPCS: 80053; 85025; 96523; J1642

== ENCOUNTER 2023-07-19 13:19 | Inpatient (IN) | payer MEDICAID, SELFPAY ==
[2023-07-19] VITALS (9 sets, daily range): BP systolic 151–155; BP diastolic 89–97; PULSE 85–98; RESP 16–18; TEMP 36.4–37.2; O2SAT 93–95; BMI 18.6
--- NOTE | 2023-07-19 14:01 | P.HP_ITS ---
Documented by User: John Bazzi heather Stubbs 07/19/23 14:53 Providers/Chief Complaint Admitting Physician: Laci Jaramillo MD Primary Care Provider: Clarice Perez MD Chief Complaint: Metastatic Colon Cancer / Fever History of Present Illness Patient is a 53-year-old female with a past medical history of colon cancer mets to the liver, anxiety, MDD, PE, diverticulitis who presents to the outpatient oncology clinic for follow-up visit with weakness, fever, and tachycardia. Patient will be admitted to the hospital for further medical management of fever, tachycardia, GI Bleed, and debility/weakness. Patient reports that she has developed a fever approximately 2 days ago reporting last temp at 101 oral. Reports increased weakness and can feel that she has a fast heart rate. She does complain of shortness of breath with cough, increased production of green sputum, and nasal congestion. Does report of some right side wall chest pain with inspiration and expiration. Does have a history of PE but denies similar symptoms. Has had nausea and vomiting for the past 2 days and describes emesis as clear/slightly yellow. Reports that she has not had a bowel movement in the past 4 days per colostomy bag but melena present. Denies any headaches states that she does have dizziness when she stands up and has severe pain that is not controlled by current pain medication regimen. Reports pain 10/10 on pain scale to lower bilateral abdomen. Patient reports that she does not have an appetite at this time and has not had a full healthy meal in over a week. States that she did try to eat some fish sticks approximately 2 days ago but only had two and was not able to keep the food down. Does report that she has brown-colored urine but denies Dysuria. Denies any aggravating or alleviating factors at this time. Recent laboratory work obtained while in oncology outpatient and noted for; sodium 135, chloride 91, alk phos 167 Review of Systems Narrative: Comprehensive 10 point ROS is negative except as noted in the corresponding HPI. Card: Reports: palpitations; Denies: chest pain Resp: Reports: dyspnea, productive cough, pain on inspiration and chest congestion; Denies: hemoptysis GI: Reports: abdominal pain, nausea, vomiting, constipation and hematochezia Neuro: Reports: weakness in extremities; Denies: headache(s) Medications/Allergies Home Medications Medication Instructions Recorded Confirmed Last Taken Type potassium chloride 20 mEq 10 meq PO QAM 02/22/23 07/19/23 06/20/23 History tablet,extended release albuterol sulfate 90 mcg/actuation 2 inh inhalation Q8H PRN shortness 02/24/23 07/19/23 07/17/23 Rx aerosol inhaler of breath or wheezing #8.5 grams clonazepam 1 mg tablet 1 mg PO BID 05/24/23 07/19/23 06/20/23 History venlafaxine 37.5 mg 37.5 mg PO QAM 05/26/23 07/19/23 06/20/23 History capsule,extended release 24 hr polyethylene glycol 3350 17 17 g PO DAILY 05/31/23 07/19/23 06/20/23 History gram/dose oral powder sennosides 8.6 mg-docusate sodium 2 tab PO BID 05/31/23 07/19/23 06/20/23 History 50 mg tablet (Senna with Docusate Sodium) montelukast 10 mg tablet 10 mg PO QAM #30 tabs 06/07/23 07/19/23 Unknown Rx (Singulair) clonazepam 0.5 mg tablet 1 mg PO BID PRN SEVERE ANXIETY 06/20/23 07/19/23 07/19/23 History ciprofloxacin HCl 500 mg tablet 500 mg PO BID 7 days #14 tabs 07/12/23 07/19/23 Unknown Rx lidocaine-prilocaine 2.5 %-2.5 % 1 applic topical .COMPLEX #30 grams 07/12/23 07/19/23 Unknown Rx topical cream metronidazole 500 mg tablet 500 mg PO TID 7 days #21 tabs 07/12/23 07/19/23 Unknown Rx morphine 30 mg immediate release 30 mg PO Q4H PRN pain 30 days #180 07/12/23 07/19/23 Unknown Rx tablet tabs morphine 60 mg tablet,extended 120 mg (2 x 60 mg) PO Q12H 30 days 07/12/23 07/19/23 Unknown Rx release #120 tabs diphenoxylate-atropine 2.5 2 tab PO QID PRN Diarrhea #60 tabs 07/14/23 07/19/23 Unknown Rx mg-0.025 mg tablet (Lomotil) lorazepam 1 mg tablet 0.5 - 1 mg (0.5 - 1 x 1 mg) PO Q6H 07/14/23 07/19/23 Unknown Rx PRN Severe Nausea #30 tabs ondansetron HCl 4 mg tablet 4 mg PO QID PRN Nausea/vomiting 07/14/23 07/19/23 Unknown Rx #30 tabs prochlorperazine maleate 10 mg 10 mg PO Q4H PRN Mild Nausea #30 07/14/23 07/19/23 Unknown Rx tablet (Compazine) tabs Allergies Allergy/AdvReac Type Severity Reaction Status Date / Time tramadol [From Ultra] Allergy ALGY-Anaphy Verified 07/19/23 09:08 laxis PFSH Acute PFSH: Medical History Psychiatric care Port-A-Cath in place Left chest wall 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 Family History Other CAD (coronary artery disease) Cancer Hyperlipidemia Hypertension Lung disease Psychiatric illness Stroke Denies family history of Diabetes Clotting disorder Dementia Chronic kidney disease (CKD) Suicide Anesthesia complication Bleeding disorder Social History Smoking and tobacco/nicotine status: former use of tobacco/nicotine Quit status (tobacco/nicotine): has quit using Year quit tobacco: August 2022 Former quit date comment: smoked x 10 years Alcohol intake: never Physical Exam Narrative: General: Alert, able to answer questions appropriately, pale, ill-appearing Neck: Supple Lymph: No lymphadenopathy Chest: Normal to inspection Respiratory: Shallow respiratory effort. No apparent distress. Clear lungs per auscultation Cardio: RRR, no murmurs, S1-S2 present. Bilateral radial and dorsalis pedal pulses 2+ GI: Left lower quadrant colostomy bag present with melena in bag. Medial past surgical incision. Abdominal pain on palpation 10/10 on pain scale. Active bowel sounds to RLQ, RUQ, LUQ. : Deferred Extremity: No apparent skin breakdown or wounds. Neuro: Alert oriented x 4. Data Other Labs: WBC 11.18, hemoglobin 12, hematocrit 38.4, platelet 422, sodium 135, chloride 91, alk phos 167 A&P Assessment and plan (1) Malignant neoplasm of sigmoid colon: Colostomy in place to left lower quadrant. Melena present in colostomy bag. Patient reports uncontrolled pain medication regimen at this time with recent increase in morphine to 120 mg every 12 hours as well as immediately release morphine 30 mg every 4 hours as needed with changes that occurred on 07/12/2023. Continue current pain medication regimen. Supplement with morphine IV 2 mg every 2 hours as needed. Zofran for nausea Ativan for anxiety (2) Fever: Reports recent temp yesterday of 101.0 oral. D5 NS at 125 mL/hr. Tylenol for fever (3) GI bleed: As per #1 CT abdomen pelvis with contrast for increased melena in colostomy bag. (4) Tachycardia: Telemetry (5) Upper respiratory infection, acute: Chest x-ray Blood culture and lactic acid level Respiratory panel. Oxygen therapy protocol per respiratory. Plan Plan as stated above. CBC, CMP, mag in AM. Pending urinalysis, respiratory panel, blood culture, lactate level. Will await chest x-ray and CT abdomen results. DVT prophylaxis: SCDs PPI prophylaxis: Protonix 40 mg IV twice daily CODE STATUS: Full code per patient and family request. In the event patient is unable to make decisions for herself, Vinayak (), will make decisions for patient. Coding Level of Care Code 98649 Diagnoses Malignant neoplasm of sigmoid colon C18.7 Fever R50.9 GI bleed K92.2 Tachycardia R00.0 Upper respiratory infection, acute J06.9 Time Spent (min) 49 Documented by User: Laci Jaramillo MD 07/19/23 15:38 Providers/Chief Complaint Chief Complaint: Metastatic Colon Cancer / Fever History of Present Illness Patient is a 53-year-old female with a past medical history of colon cancer mets to the liver, anxiety, MDD, PE with IVC filter who presents to the outpatient oncology clinic for follow-up visit with weakness, fever, and tachycardia. Patient will be admitted to the hospital for further medical management of fever, tachycardia, GI Bleed, and debility/weakness. Patient reports that she has developed a fever approximately 2 days ago reporting last temp at 101 oral. Reports increased weakness and can feel that she has a fast heart rate. She does complain of shortness of breath with cough, increased production of green sputum, and nasal congestion. Does report of some right side wall chest pain with inspiration and expiration. Does have a history of PE but denies similar symptoms. Has had nausea and vomiting for the past 2 days and describes emesis as clear/slightly yellow. Reports that she has not had a bowel movement in the past 4 days per colostomy bag but melena present. Denies any headaches states that she does have dizziness when she stands up and has severe pain that is not controlled by current pain medication regimen. Reports pain 10/10 on pain scale to lower bilateral abdomen. Patient reports that she does not have an appetite at this time and has not had a full healthy meal in over a week. States that she did try to eat some fish sticks approximately 2 days ago but only had two and was not able to keep the food down. Does report that she has brown-colored urine but denies Dysuria. Denies any aggravating or alleviating factors at this time. Recent laboratory work obtained while in oncology outpatient and noted for; sodium 135, chloride 91, alk phos 167 Medications/Allergies Home Medications Medication Instructions Recorded Confirmed Last Taken Type potassium chloride 20 mEq 10 meq PO QAM 02/22/23 07/19/23 06/20/23 History tablet,extended release albuterol sulfate 90 mcg/actuation 2 inh inhalation Q8H PRN shortness 02/24/23 07/19/23 07/17/23 Rx aerosol inhaler of breath or wheezing #8.5 grams clonazepam 1 mg tablet 1 mg PO BID 05/24/23 07/19/23 06/20/23 History venlafaxine 37.5 mg 37.5 mg PO QAM 05/26/23 07/19/23 06/20/23 History capsule,extended release 24 hr polyethylene glycol 3350 17 17 g PO DAILY 05/31/23 07/19/23 06/20/23 History gram/dose oral powder sennosides 8.6 mg-docusate sodium 2 tab PO BID 05/31/23 07/19/23 06/20/23 History 50 mg tablet (Senna with Docusate Sodium) montelukast 10 mg tablet 10 mg PO QAM #30 tabs 06/07/23 07/19/23 Unknown Rx (Singulair) clonazepam 0.5 mg tablet 1 mg PO BID PRN SEVERE ANXIETY 06/20/23 07/19/23 07/19/23 History ciprofloxacin HCl 500 mg tablet 500 mg PO BID 7 days #14 tabs 07/12/23 07/19/23 Unknown Rx lidocaine-prilocaine 2.5 %-2.5 % 1 applic topical .COMPLEX #30 grams 07/12/23 07/19/23 Unknown Rx topical cream metronidazole 500 mg tablet 500 mg PO TID 7 days #21 tabs 07/12/23 07/19/23 Unknown Rx morphine 30 mg immediate release 30 mg PO Q4H PRN pain 30 days #180 07/12/23 07/19/23 Unknown Rx tablet tabs morphine 60 mg tablet,extended 120 mg (2 x 60 mg) PO Q12H 30 days 07/12/23 07/19/23 Unknown Rx release #120 tabs diphenoxylate-atropine 2.5 2 tab PO QID PRN Diarrhea #60 tabs 07/14/23 07/19/23 Unknown Rx mg-0.025 mg tablet (Lomotil) lorazepam 1 mg tablet 0.5 - 1 mg (0.5 - 1 x 1 mg) PO Q6H 07/14/23 07/19/23 Unknown Rx PRN Severe Nausea #30 tabs ondansetron HCl 4 mg tablet 4 mg PO QID PRN Nausea/vomiting 07/14/23 07/19/23 Unknown Rx #30 tabs prochlorperazine maleate 10 mg 10 mg PO Q4H PRN Mild Nausea #30 07/14/23 07/19/23 Unknown Rx tablet (Compazine) tabs Allergies Allergy/AdvReac Type Severity Reaction Status Date / Time tramadol [From Ultram] Allergy ALGY-Anaphy Verified 07/19/23 09:08 laxis PFSH Acute PFSH: Medical History Psychiatric care Port-A-Cath in place Left chest wall 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 Family History Other CAD (coronary artery disease) Cancer Hyperlipidemia Hypertension Lung disease Psychiatric illness Stroke Denies family history of Diabetes Clotting disorder Dementia Chronic kidney disease (CKD) Suicide Anesthesia complication Bleeding disorder Social History Smoking and tobacco/nicotine status: former use of tobacco/nicotine Quit status (tobacco/nicotine): has quit using Year quit tobacco: August 2022 Former quit date comment: smoked x 10 years Alcohol intake: never Physical Exam Narrative: General: Alert, able to answer questions appropriately, pale, ill-appearing HEENT: Tongue coated. Mucous membranes dry. Neck: Supple Lymph: No lymphadenopathy Chest: Normal to inspection Respiratory: Shallow respiratory effort. No apparent distress. Clear lungs per auscultation Cardio: RRR, no murmurs, S1-S2 present. Bilateral radial and dorsalis pedal pulses 2+ GI: Left lower quadrant colostomy bag present with melena in bag. Medial past surgical incision. Abdominal pain on palpation 10/10 on pain scale. Active bowel sounds to RLQ, RUQ, LUQ. : Deferred Extremity: No apparent skin breakdown or wounds. Neuro: Alert oriented x 4. Data Other Labs: WBC 11.18, hemoglobin 12, hematocrit 38.4, platelet 422, sodium 135, chloride 91, alk phos 167 I have ordered blood cultures, chest x-ray, CT abdomen and pelvis with contrast, lactate level A&P Assessment and plan (1) Malignant neoplasm of sigmoid colon: Colostomy in place to left lower quadrant. Melena present in colostomy bag. Patient reports uncontrolled pain medication regimen at this time with recent increase in morphine to 120 mg every 12 hours as well as immediately release morphine 30 mg every 4 hours as needed with changes that occurred on 07/12/2023. Continue current pain medication regimen. Supplement with morphine IV 2 mg every 2 hours as needed for breakthrough pain Zofran for nausea Ativan for anxiety With her abdominal pain is difficult to tell if this is secondary to infection, malignancy, or other pathology. (2) Fever: Reports recent temp yesterday of 101.0 oral. D5 NS at 125 mL/hr. Tylenol for fever Blood cultures Empiric vancomycin and Zosyn considering malignancy, immune deficiency, port (3) GI bleed: (4) Tachycardia: (5) Upper respiratory infection, acute: Chest x-ray Blood culture and lactic acid level Respiratory panel. Oxygen therapy protocol per respiratory. DuoNeb every 6 hours as needed Plan Past history of pulmonary embolism, intolerant of anticoagulation secondary to b leeding, IVC filter was placed. Plan as stated above. CBC, CMP, mag in AM. Pending urinalysis, respiratory panel, blood culture, lactate level. Will await chest x-ray and CT abdomen results. DVT prophylaxis: SCDs PPI prophylaxis: Protonix 40 mg IV twice daily CODE STATUS: Full code per patient and family request. In the event patient is unable to make decisions for herself, Vinayak (), will make decisions for patient. Attestations Medical Necessity Statement*: 2 midnight stay for evaluation and treat ment of fever, tachycardia, abdominal pain, GI bleed in this patient with metastatic colon cancer. Diagnoses Malignant neoplasm of sigmoid colon C18.7 Fever R50.9 GI bleed K92.2 Tachycardia R00.0 Upper respiratory infection, acute J06.9 Time Spent (min) 49
[2023-07-19] MEDS: morphine 4 mg/mL SDV 1 mL 2 MG IV ×2 (14:22→16:20)
[2023-07-19] MEDS: sodium chloride 0.9% 1,000 ML 50 ML IV (14:24)
--- NOTE | 2023-07-19 14:35 | CTR_ITS ---
PROCEDURE INFORMATION: Exam: CT Abdomen And Pelvis With Contrast Exam date and time: 07/20/2023 5:55 AM Age: 53 years old Clinical indication: Abdominal pain TECHNIQUE: Imaging protocol: Computed tomography of the abdomen and pelvis with contrast. Radiation optimization: All CT scans at this facility use at least one of these dose optimization techniques: automated exposure control; mA and/or kV adjustment per patient size (includes targeted exams where dose is matched to clinical indication); or iterative reconstruction. Contrast material: OMNI 350; Contrast volume: 75 ml; Contrast route: INTRAVENOUS (IV); REPORTING DATA: Count of CT and Cardiac NM exams in prior 12 months: This patient has received 13 known CTs and 0 known cardiac nuclear medicine studies in the 12 months prior to the current study. COMPARISON: CT chest abdpel w/*[id number] 07/06/2023 3:54 PM RADIATION DOSE METRICS: Total DLP (mGy-cm): 376.92 FINDINGS: Tubes, catheters and devices: There is a stent within the thickened and irregular sigmoid colon, this stent is focally collapsed. Lungs: Left lower lobe bronchiectasis with mucous plugging. Liver: See Stomach and bowel finding. Gallbladder and bile ducts: Cholecystectomy. Pancreas: Normal. No ductal dilation. Spleen: Normal. No splenomegaly. Adrenal glands: Normal. No mass. Kidneys and ureters: Slightly increasing left and new right ureteropelvocaliectasis presumably related to the extensive neoplastic disease. There is stable uniform diminished function within the left kidney likely related to the obstruction as the left renal artery is widely patent in the left retroaortic renal vein is patent as well. Stomach and bowel: The colon is mildly distended with fluid (sees maximum diameter of the transverse colon 6 cm. The obstruction appears to be at the left lower quadrant colostomy site as bulky tumor extends upwards from the sigmoid colon to the colostomy site. The size of the tumor masses has increased since the prior examination. This tumor is extremely aggressive. The hepatic metastatic disease has advanced slightly as well. The largest hepatic mass is currently 3.3 cm in diameter versus 2.9 cm previously. Appendix: No evidence of appendicitis. Intraperitoneal space: Free fluid within the pelvis is unchanged. Vasculature: IVC filter. Lymph nodes: Marked bilateral ureteropelvocaliectasis is present, slightly increasing on the left and new on the right side. This is presumably related to neoplastic disease. There are extensive retroperitoneal and pelvic enlarged lymph nodes seen. The Urinary bladder: Unremarkable as visualized. Reproductive: Unremarkable as visualized. Bones/joints: Unremarkable. No acute fracture. Soft tissues: Unremarkable. Other findings: Prominent/borderline distended colon filled with fluid, partially obstructed at the colostomy site by progressive neoplastic disease. Testing CT/CT abdomen pelvis w con* [id number] IMPRESSION: Interval development of prominent/borderline distended colon filled with fluid, partially obstructed at the colostomy site by progressive neoplastic disease. The extremely aggressive neoplastic disease has progressed visibly since 07/06/2023. Increasing urinary obstructive changes. COMMENTS: For patients with an IVC filter, recommend assessment for a management plan for the patient's IVC filter. If there is no established management plan, recommend referral to an interventional clinician on a nonemergent basis for evaluation.
--- NOTE | 2023-07-19 14:35 | XRR_ITS ---
PROCEDURE INFORMATION: Exam: XR Chest Exam date and time: 07/19/2023 3:52 PM Age: 53 years old Clinical indication: Cough; Prior surgery; Surgery date: 6+ months; Surgery type: Port TECHNIQUE: Imaging protocol: Radiologic exam of the chest. Views: 1 view. COMPARISON: CT chest abdpel w/*[id number] 07/06/2023 3:54 PM FINDINGS: Tubes, catheters and devices: Chemotherapy infusion device enters from the left and terminates near the atrial caval junction. Lungs: Mild atelectasis at the medial left lung base is stable. Pleural spaces: Unremarkable. No pleural effusion. No pneumothorax. Heart/Mediastinum: Unremarkable. No cardiomegaly. Bones/joints: Unremarkable. XR/XR chest 1V portable [id number] IMPRESSION: No acute cardiopulmonary disease.
[2023-07-19] MEDS: dextrose 5%-sod chloride 0.9% 1,000 ML 125 ML IV ×2 (15:21→23:22)
[2023-07-19] MEDS: pantoprazole 40 mg SDV IVP (15:22)
[2023-07-19] MEDS: piperacillin-tazobactam 3.375 GM in sodium chloride 0.9% (plus) 50 ML IV ×2 (16:17→23:22)
[2023-07-19 17:45] LABS: Lactate (Lactic Acid level) 0.7 mmol/L (0.5-2.2)
[2023-07-19] MEDS: LORazepam 0.5 mg Tablet PO (17:47)
[2023-07-19] MEDS: morphine ER (12 HR) 30 mg tablet 120 MG PO (17:59)
[2023-07-19 19:06] LABS: Bilirubin Urine Neg (Negative); Blood Urine Neg (Negative); Glucose Urine UA Norm (Normal); Ketones Urine 2+ (Negative); Leukocyte Esterase Urine Negative (Negative); Nitrate Urine Negative (Negative); Protein Urine Neg (Negative); Urine Appearance Cloudy (CLEAR); Urine Color Yellow (Yellow); Urobilinogen Urine Norm (Negative); pH Urine 8 (5-7)
[2023-07-19 19:09] LABS: Add Urine Culture? No; Amorphous Sediment Urine 3+ /hpf; Bacteria Urine TRACE /hpf; Mucus Urine 1+ /hpf; RBC Urine 0-4 /hpf (0-2); Renal Epithelial Cells Urine RARE /hpf; Squamous Epithelial Cell Urine 0-4 /hpf (0-5); Transitional Epi Cells Urine 0-4 /hpf; WBC Urine 0-4 /hpf (0-5)
[2023-07-19 20:23] LABS: Adenovirus Not Detected (NOT DETECT); Chlamydia Pneumoniae Not Detected (NOT DETECT); Coronavirus 229E,HKU1,NL63,OC4 Not Detected (NOT DETECT); Human Metapneumovirus Not Detected (NOT DETECT); Human Rhinovirus/Enterovirus Not Detected (NOT DETECT); Influenza A Not Detected (NOT DETECT); Influenza A H1 Not Detected (NOT DETECT); Influenza A H1-2009 Not Detected (NOT DETECT); Influenza A H3 Not Detected (NOT DETECT); Influenza B Not Detected (NOT DETECT); Mycoplasma Pneumoniae Not Detected (NOT DETECT); Parainfluenza Virus Type 1 Not Detected (NOT DETECT); Parainfluenza Virus Type 2 Not Detected (NOT DETECT); Parainfluenza Virus Type 3 Not Detected (NOT DETECT); Parainfluenza Virus Type 4 Not Detected (NOT DETECT); Respiratory Syncytial Virus A Not Detected (NOT DETECT); Respiratory Syncytial Virus B Not Detected (NOT DETECT); SARS-COV-2 Not Detected (NOT DETECT)
[2023-07-19] MEDS: vancomycin 1,000 MG in sodium chloride 0.9% 250 ML 250 MG IV (20:29)
[2023-07-19] MEDS: morphine IR 15 mg Tablet 30 MG PO (23:19)
[2023-07-20] VITALS (20 sets, daily range): BP systolic 139–161; BP diastolic 78–93; PULSE 75–94; RESP 15–18; TEMP 36.4–36.9; O2SAT 93–98
[2023-07-20] MEDS: morphine 4 mg/mL SDV 1 mL 2 MG IV ×4 (02:52→20:23)
--- NOTE | 2023-07-20 03:37 | PC.NURSE ---
Dr. Isidro notified of patient c/o pain 03/24 with no relief from PRN morphine. PRN Dilaudid ordered. Patient went down to CT to have ordered CT completed. CT staff said that they are unable to use port for contrast. This RN attempted IV x2 and was unsuccessful. Patient brought back up to the floor to have other nurses attempt IV access.
[2023-07-20] MEDS: HYDROmorphone 1 mg/mL INJ 1 mL 0.4 MG IVP ×4 (04:07→19:35)
[2023-07-20 05:04] LABS: Basophils % 0.2 %; Hematocrit 34.9 % (36-47); Lymphocytes # 1.2 10^3/uL (0.8-4.8); Lymphocytes % 21.9 %; Mean Corpuscular HGB Conc 30.9 g/dL (30-55); Mean Corpuscular Hemoglobin 27.3 pg (27-33); Mean Corpuscular Volume 88.4 fl (85-98); Monocytes # 0.6 10^3/uL (0.2-0.9); Monocytes % 10.3 %; Neutrophils # 3.77 10^3/uL (1.8-7.7); Neutrophils % 67.2 %; Nucleated Red Blood Cells % 0 %; Platelet Count 328 10^3/cmm (157-399); Red Blood Count 3.95 10^6/uL (3.85-5.65); Red Cell Distribution Width 15.8 % (12.1-15.1); White Blood Count 5.61 10^3/uL (3.29-11.43)
[2023-07-20 05:24] LABS: Alanine Aminotransferase < 5 U/L (0-33); Albumin Level 3.1 g/dL (3.5-5.2); Alkaline Phosphatase 148 U/L (35-105); Anion Gap 13.4 (5-19); Aspartate Amino Transferase 15 U/L (0-32); Blood Urea Nitrogen 5 mg/dL (6-20); Calcium 9.2 mg/dL (8.5-10.5); Carbon Dioxide 29 mmol/L (22-29); Chloride 100 mmol/L (98-107); Globulin 3.5 g/dL (1.3-4.6); Glomerular Filtration Rate 105.4 mL/min (90-130); Glucose 123 mg/dL (65-115); Magnesium 2.4 mg/dL (1.7-2.3); Osmolality Calculated 285 mOsm/kg (285-295); Potassium 4.4 mmol/L (3.5-5.1); Sodium 138 mmol/L (136-145); Total Bilirubin 0.3 mg/dL (0.15-1.2); Total Protein 6.6 g/dL (6.6-8.7)
[2023-07-20] MEDS: LORazepam 0.5 mg Tablet PO ×3 (05:37→22:07)
[2023-07-20] MEDS: iohexol 350 mg/mL 500 mL Btl (per mL) IV (05:59)
[2023-07-20] MEDS: morphine IR 15 mg Tablet 30 MG PO ×2 (06:14→22:07)
[2023-07-20] MEDS: vancomycin 1,000 MG in sodium chloride 0.9% 250 ML 250 MG IV ×2 (07:14→19:33)
[2023-07-20] MEDS: piperacillin-tazobactam 3.375 GM in sodium chloride 0.9% (plus) 50 ML IV ×2 (07:15→15:18)
[2023-07-20] MEDS: dextrose 5%-sod chloride 0.9% 1,000 ML 125 ML IV ×3 (07:15→22:29)
[2023-07-20] MEDS: pantoprazole 40 mg SDV IVP ×2 (07:16→20:38)
[2023-07-20] MEDS: morphine ER (12 HR) 30 mg tablet 120 MG PO ×2 (08:26→17:08)
--- NOTE | 2023-07-20 10:10 | PC.CHAP ---
Pastoral Care Encounter/Spiritual Assessment Type of Contact [] Declined records management associate visit [] Patient/Family/Request visit [] Outpatient visit [] Follow-up visit [] Physician referral [] Code/Alert [x] Routine visit [] Staff referral [x] Actively dying [] Patient sleeping [] Family support [] [] Out of room [] Palliative care [] [] Receiving care in room [] Pre-surgical visit [] Trauma [] Long length of stay [] ICU visit [] Other: Relational/Emotional Strength [] Patient feels connected with others/family/visitors/staff [] Distress [x] Loneliness/isolation [] Abandonment Spirituality of Patient [] Person of Margaret [] Attends Pentecostal of their Margaret [] Believes in Prayer [] Reads Bible or Pentecostal materials [] There are Spiritual issues to be addressed Furniture Manager Interventions [x] Prayer [x] Active listening [] Non-anxious presence [x] Spiritual/emotional support [] Crisis/trauma care [] Spiritual counseling [] Bereavement support [] Provided bereavement packet [] Provided Bible/devotional materials [] Provided toy/stuffed animal, coloring book to patient or family member [] Provided Communion [] Anointing/Eldred [] Salvation [] Completed spiritual assessment [] Other: Impact on Illness or Injury [] Angry [] Fearful [] Anxious [] Often cries [] Exhaustion [] Unable to work [] Unable to attend moravian [] Unable to walk/stand [] Unable to read [] Unable to drive [] Unable to eat/drink [] Unable to sleep [] Unable to be with family [] Patient intubated [] Other: Summary prayer with this lady, she doesnt have long. Time spent with patient 15 min
--- NOTE | 2023-07-20 11:17 | P.PN_ITS ---
Subjective 2 Subjective: Judi reports her abdomen is still hurting. She has not had any vomiting. She is still nauseous. She still has some blood out of her ostomy. I have a meeting set with her and her to discuss her CT scan results around 1 PM. No fever or chills noted overnight. Medications: Reviewed: Yes Vitals/I&O/Wt Last Vital Signs Temp 97.9 F 07/20/23 08:00 Pulse 81 07/20/23 08:00 Resp 18 07/20/23 11:01 BP 155/89 07/20/23 08:00 Pulse Ox 95 07/20/23 08:12 O2 Del Method Room Air 07/20/23 08:12 07/19/23 07/20/23 07/20/23 22:59 06:59 14:59 Intake Total 1540 / 1540 1350 / 2890 1204.167 / 1204.167 Output Total 200 / 200 400 / 600 0 / 0 Balance 1340 / 1340 950 / 2290 1204.167 / 1204.167 Weight last 48 hrs Weight 51.738 kg Weight 49.243 kg Physical Exam 2 Narrative: General exam no distress, conversant Neck is supple Cardiovascular regular rhythm, no murmur Lungs clear Abdomen tender, globally. Few bowel sounds. Some blood in the ostomy. Extremities no cyanosis clubbing or edema Data 07/20/23 04:43 07/20/23 04:43 Micro: Microbiology 07/19/23 17:11 Blood Culture - Preliminary Blood SPECIMEN COLLECTED 07/19/23 17:06 Blood Culture - Preliminary Blood SPECIMEN COLLECTED A&P Assessment and plan (1) Malignant neoplasm of sigmoid colon: Colostomy in place to left lower quadrant. Slight amount of blood noted in the ostomy bag Continue current pain medication. Pain is better although still present. Morphine for breakthrough pain Zofran for nausea Ativan for anxiety CT scan has been completed. No obvious infection. There is concern that her malignancy of her sigmoid has become locally invasive to her ostomy and causing partial obstruction at her ostomy site. I will be visiting with her and her family regarding this this afternoon to determine whether the patient would want any further aggressive treatment, or potentially change to comfort/hospice (2) Fever: Reports fever prior to admission Continue D5 NS at 125 mL/hr. Tylenol for fever Blood cultures have been taken, negative to date Continue empiric vancomycin and Zosyn (3) GI bleed: As per #1 CT abdomen pelvis with contrast for increased melena in colostomy bag. This appears to be secondary to advancing malignancy CBC, BMP in the morning Hemoglobin decreased to 10.8 from 12.0. Likely combination between some small amount of blood loss, and hemodilution. (4) Tachycardia: Resolved, likely related to dehydration (5) Upper respiratory infection, acute: Chest x-ray negative Blood culture obtained and negative to date. Lactic acid level normal Respiratory panel. Oxygen therapy protocol per respiratory. DuoNeb every 6 hours as needed Plan Past history of pulmonary embolism, intolerant of anticoagulation secondary to bleeding, IVC filter was placed. DVT prophylaxis: SCDs PPI prophylaxis: Protonix 40 mg IV twice daily CODE STATUS: Full code per patient and family request. In the event patient is unable to make decisions for herself, Vinayak (), will make decisions for patient. Attestations 2 Medical Necessity Statement*: Needs continued hospitalization secondary to a colonic partial obstruction, discussing further treatment/life goals at 1 PM. Coding Level of Care Code Acute Code for Chg Fwd Diagnoses Malignant neoplasm of sigmoid colon C18.7 Fever R50.9 GI bleed K92.2 Tachycardia R00.0 Upper respiratory infection, acute J06.9
[2023-07-20] MEDS: ondansetron 2 mg/ML SDV 2 mL 4 MG IVP ×2 (13:33→17:35)
--- NOTE | 2023-07-20 23:15 | PC.NURSE ---
EMS here to transfer patient to [place].
--- NOTE | 2023-07-21 07:14 | PM.TDS ---
Transfer Summary Providers Date of Admission: 07/19/23 13:19 Date of Discharge/Transfer: 07/21/23 Attending Provider at Admission: Laci Jaramillo MD Attending Provider at Transfer: Laci Jaramillo MD Primary Care Provider: Clarice Perez MD Transfer Plans: Anticipated date of transfer: 07/21/23. Diagnoses at Discharge Discharge Diagnosis (1) Malignant neoplasm of sigmoid colon: Status: Acute (2) Fever: Status: Acute (3) GI bleed: Status: Acute (4) Tachycardia: Status: Acute (5) Upper respiratory infection, acute: Status: Acute Reason for Visit Reason for Visit Metastatic Colon Cancer / Fever Hospital Course Hospital Course Judi is a 53-year-old female with metastatic colon cancer was admitted on July 19. She was admitted as a direct admission from oncology clinic. The concern was increasing abdominal pain, history of temperature recorded at home, and recurrent nausea and inability to tolerate p.o. On admission she was placed on broad-spectrum antibiotics and blood cultures were drawn. She was hydrated secondary to dehydration. Initial lab, chest x-ray did not show any obvious cause of fever. CT scan of abdomen pelvis was ultimately done which demonstrated partial obstruction, from increasing growth of her colonic malignancy. The growth in her sigmoid area was locally growing into the area of her colostomy causing partial obstruction. She had previously seen a surgeon regarding her increasing problems and he did not feel comfortable performing operation here at our facility considering her past history of colonic stent, colorectal surgery, widespread malignancy. I discussed with the patient in detail her findings, and discussed palliative care, comfort care, and potentially transfer to tertiary care hospital for consideration of review of her findings with colorectal surgeon. I also discussed these options with her oncologist. She elected for transfer regarding opinion if alleviation of obstruction could occur, so potential second line treatment of her colonic malignancy could occur. I discussed her care with [facility] and they graciously excepted her care. She was transferred the night of July 22.'s please see exam done earlier that day. Patient and family were able to ask questions and agreed with the plan. Patient was stable at time of transfer. Physical Exam Narrative: See exam done earlier TS Data Studies Completed and Pending Pending at discharge Category Date Time Status Blood Culture Stat Lab 07/19/23 17:11 Results Completed Studies During Hospitalization Category Date Time Status CT abdomen pelvis w con* [id number] Routine Cat Scan 07/19/23 14:35 Completed XR chest 1V portable [id number] Routine Exams 07/19/23 14:35 Completed Laboratory Last Values WBC 5.61 10^3/uL (3.29-11.43) 07/20/23 04:43 RBC 3.95 10^6/uL (3.85-5.65) 07/20/23 04:43 Hgb 10.80 g/dL (11.27-16.99) L 07/20/23 04:43 Hct 34.9 % (36-47) L 07/20/23 04:43 MCV 88.4 fl (85-98) 07/20/23 04:43 MCH 27.3 pg (27-33) 07/20/23 04:43 MCHC 30.9 g/dL (30-55) 07/20/23 04:43 RDW 15.8 % (12.1-15.1) H 07/20/23 04:43 Plt Count 328 10^3/cmm (157-399) 07/20/23 04:43 MPV 9.0 fL (7.4-10.4) 07/20/23 04:43 Neut % (Auto) 67.2 % 07/20/23 04:43 Lymph % (Auto) 21.9 % 07/20/23 04:43 [place] % (Auto) 10.3 % 07/20/23 04:43 Eos % (Auto) 0.0 % 07/20/23 04:43 Baso % (Auto) 0.2 % 07/20/23 04:43 Neut # (Auto) 3.77 10^3/uL (1.8-7.7) 07/20/23 04:43 Lymph # (Auto) 1.2 10^3/uL (0.8-4.8) 07/20/23 04:43 [place] # (Auto) 0.6 10^3/uL (0.2-0.9) 07/20/23 04:43 Eos # (Auto) 0.0 10^3/uL (0.0-0.8) 07/20/23 04:43 Baso # (Auto) 0.0 10^3/uL (0.0-0.1) 07/20/23 04:43 Nucleated RBC % (auto) 0 % 07/20/23 04:43 Nucleated RBCs # 0.0 /100WBC 07/20/23 04:43 Sodium 138 mmol/L (136-145) 07/20/23 04:43 Potassium 4.4 mmol/L (3.5-5.1) 07/20/23 04:43 Chloride 100 mmol/L (98-107) 07/20/23 04:43 Carbon Dioxide 29 mmol/L (22-29) 07/20/23 04:43 Anion Gap 13.4 (5-19) 07/20/23 04:43 BUN 5 mg/dL (6-20) L 07/20/23 04:43 Creatinine 0.6 mg/dL (0.5-0.9) 07/20/23 04:43 GFR Calculation 105.4 mL/min (90-130) 07/20/23 04:43 Glucose 123 mg/dL (65-115) H 07/20/23 04:43 Calculated Osmolality 285 mOsm/kg (285-295) 07/20/23 04:43 Lactate 0.7 mmol/L (0.5-2.2) 07/19/23 17:06 Calcium 9.2 mg/dL (8.5-10.5) 07/20/23 04:43 Magnesium 2.4 mg/dL (1.7-2.3) H 07/20/23 04:43 Total Bilirubin 0.3 mg/dL (0.15-1.2) 07/20/23 04:43 AST 15 U/L (0-32) 07/20/23 04:43 ALT < 5 U/L (0-33) 07/20/23 04:43 Alkaline Phosphatase 148 U/L (35-105) H 07/20/23 04:43 Total Protein 6.6 g/dL (6.6-8.7) 07/20/23 04:43 Albumin 3.1 g/dL (3.5-5.2) L 07/20/23 04:43 Globulin 3.5 g/dL (1.3-4.6) 07/20/23 04:43 Urine Color Yellow (Yellow) 07/19/23 18:10 Urine Appearance Cloudy (CLEAR) A 07/19/23 18:10 Urine pH 8 (5-7) H 07/19/23 18:10 Ur Specific [place] 1.020 (1.005-1.030) 07/19/23 18:10 Urine Protein Neg (Negative) 07/19/23 18:10 Urine Glucose (UA) Norm (Normal) 07/19/23 18:10 Urine Ketones 2+ (Negative) H 07/19/23 18:10 Urine Blood Neg (Negative) 07/19/23 18:10 Urine Nitrate Negative (Negative) 07/19/23 18:10 Urine Bilirubin Neg (Negative) 07/19/23 18:10 Urine Urobilinogen Norm mg/dL (Negative) 07/19/23 18:10 Ur Leukocyte Esterase Negative (Negative) 07/19/23 18:10 Urine RBC 0-4 /hpf (0-2) H 07/19/23 18:10 Urine WBC 0-4 /hpf (0-5) H 07/19/23 18:10 Ur Squamous Epith Cells 0-4 /hpf (0-5) H 07/19/23 18:10 Ur Transition Epith Cell 0-4 /hpf 07/19/23 18:10 Ur Renal Epithelial Cell Rare /hpf 07/19/23 18:10 Amorphous Sediment 3+ /hpf 07/19/23 18:10 Urine Bacteria Trace /hpf (NONE) 07/19/23 18:10 Urine Mucus 1+ /hpf 07/19/23 18:10 Nasal Influ A H1 2008 PCR Not detected (NOT DETECT) 07/19/23 17:35 Adenovirus (PCR) Not detected (NOT DETECT) 07/19/23 17:35 C. pneumoniae DNA (PCR) Not detected (NOT DETECT) 07/19/23 17:35 Coronavirus 229E (PCR) Not detected (NOT DETECT) 07/19/23 17:35 Human Metapneumovir PCR Not detected (NOT DETECT) 07/19/23 17:35 Influenza A (H1) PCR Not detected (NOT DETECT) 07/19/23 17:35 Influenza A (H3) PCR Not detected (NOT DETECT) 07/19/23 17:35 Influenza Type A (PCR) Not detected (NOT DETECT) 07/19/23 17:35 Influenza Type B (PCR) Not detected (NOT DETECT) 07/19/23 17:35 M. pneumoniae (PCR) Not detected (NOT DETECT) 07/19/23 17:35 Parainfluenza 1 (PCR) Not detected (NOT DETECT) 07/19/23 17:35 Parainfluenza 2 (PCR) Not detected (NOT DETECT) 07/19/23 17:35 Parainfluenza 3 (PCR) Not detected (NOT DETECT) 07/19/23 17:35 Parainfluenza 4 (PCR) Not detected (NOT DETECT) 07/19/23 17:35 RSV Type A (PCR) Not detected (NOT DETECT) 07/19/23 17:35 RSV Type B (PCR) Not detected (NOT DETECT) 07/19/23 17:35 Entero/Rhino (PCR) Not detected (NOT DETECT) 07/19/23 17:35 SARS-CoV-2 (PCR) Not detected (NOT DETECT) 07/19/23 17:35 Radiology Impressions Abdomen/Pelvis CT 07/19/23 14:35 IMPRESSION: Interval development of prominent/borderline distended colon filled with fluid, partially obstructed at the colostomy site by progressive neoplastic disease. The extremely aggressive neoplastic disease has progressed visibly since 07/06/2023. Increasing urinary obstructive changes. COMMENTS: For patients with an IVC filter, recommend assessment for a management plan for the patient's IVC filter. If there is no established management plan, recommend referral to an interventional clinician on a nonemergent basis for evaluation. Chest X-Ray 07/19/23 14:35 IMPRESSION: No acute cardiopulmonary disease. Recent Clincial Data Last Vital Signs Temp 98.2 F 07/20/23 23:14 Pulse 80 07/20/23 23:14 Resp 18 07/20/23 23:14 BP 145/87 07/20/23 23:14 Pulse Ox 94 07/20/23 23:14 O2 Del Method Room Air 07/20/23 20:15 Vital Signs Temp Pulse Resp BP Pulse Ox O2 Del Method 07/20/23 23:14 98.2 F 80 18 145/87 94 07/20/23 22:07 18 94 07/20/23 20:23 17 94 07/20/23 20:15 80 18 94 Room Air 07/20/23 20:11 98.2 F 81 15 145/87 94 Room Air 07/20/23 20:00 98.4 F 80 17 144/84 94 Room Air 07/20/23 19:35 18 Intake & Output/Weight 12/05/23 07/20/23 07/21/23 07/22/23 06:59 06:59 06:59 06:59 Intake Total 2890 / 2890 3022.917 / 3022.917 Output Total 600 / 600 500 / 500 Balance 2290 / 2290 2522.917 / 2522.917 Weight 51.738 kg Vitals Last Vital Signs Temp 98.2 F 07/20/23 23:14 Pulse 80 07/20/23 23:14 Resp 18 07/20/23 23:14 BP 145/87 07/20/23 23:14 Pulse Ox 94 07/20/23 23:14 O2 Del Method Room Air 07/20/23 20:15 TS Medications Medications Discontinued Medications Acetaminophen (Acetaminophen 325 Mg Tablet) 650 mg PO Q6H PRN PRN Reason: Mild/Mod Pain Or Temp >/= 101 Albuterol/Ipratropium (Ipratropium-Albuterol 3 Ml Neb) 3 ml INHALATION Q6H PRN PRN Reason: SHORTNESS OF BREATH Hydromorphone HCl (Hydromorphone 1 Mg/Ml Inj 1 Ml) 0.4 mg IVP Q4H PRN PRN Reason: severe pain Last Admin: 07/20/23 19:35 Dose: 0.4 mg Sodium Chloride (Sodium Chloride 0.9%) 1,000 mls @ 50 mls/hr IV .Q20H [facility] Last Infusion: 07/19/23 19:00 Dose: Infused Dextrose/Sodium Chloride (Dextrose 5%-Sod Chloride 0.9%) 1,000 mls @ 125 mls/hr IV .Q8H [facility] Last Admin: 07/20/23 22:29 Dose: 125 mls/hr Vancomycin HCl / Sodium (Chloride) 250 mls @ 0 mls/hr [id number] PROTOCOL FABIOLA; Protocol Piperacillin Sod/Tazobactam (Sod / Sodium Chloride) 50 mls @ 0 mls/hr [id number] CONT FABIOLA; Protocol Piperacillin Sod/Tazobactam (Sod 3.375 gm/ Sodium Chloride) 50 mls @ 12.5 mls/hr IV Q8H [facility] Last Infusion: 07/20/23 19:28 Dose: Infused Vancomycin HCl 1,000 mg/ (Sodium Chloride) 250 mls @ 250 mls/hr IV Q12H [facility] Last Infusion: 07/20/23 20:55 Dose: Infused Iohexol (Iohexol 350 Mg/Ml 500 Ml Btl (Per Ml)) 0 ml IV ONCE ONE Stop: 07/20/23 05:59 Last Admin: 07/20/23 05:59 Dose: 75 ml Lorazepam (Lorazepam 0.5 Mg Tablet) 0.5 mg PO Q6H PRN PRN Reason: SEVERE NAUSEA Last Admin: 07/20/23 22:07 Dose: 0.5 mg Morphine Sulfate (Morphine Er (12 Hr) 30 Mg Tablet) 120 mg PO BID FABIOLA Last Admin: 07/20/23 17:08 Dose: 120 mg Morphine Sulfate (Morphine Ir 15 Mg Tablet) 30 mg PO Q4H PRN PRN Reason: SEVERE PAIN Last Admin: 07/20/23 22:07 Dose: 30 mg Morphine Sulfate (Morphine 4 Mg/Ml Sdv 1 Ml) 2 mg IV Q2H PRN PRN Reason: BREAKTHROUGH PAIN Last Admin: 07/20/23 20:23 Dose: 2 mg Ondansetron HCl (Ondansetron 2 Mg/Ml Sdv 2 Ml) 4 mg IVP Q4H PRN PRN Reason: MODERATE NAUSEA Last Admin: 07/20/23 17:35 Dose: 4 mg Pantoprazole Sodium (Pantoprazole 40 Mg Sdv) 40 mg IVP Q12H [facility] Last Admin: 07/20/23 20:38 Dose: 40 mg Prochlorperazine (Prochlorperazine 10 Mg Tablet) 10 mg PO Q8H PRN PRN Reason: MILD NAUSEA Allergies tramadol [From [facility]] Allergy (Verified 07/20/23 09:15) ALGY-Anaphylaxis Home Medications potassium chloride 20 mEq tablet,extended release 10 meq PO QAM 02/22/23 [History Confirmed 07/20/23] albuterol sulfate 90 mcg/actuation aerosol inhaler 2 inh inhalation Q8H PRN shortness of breath or wheezing #8.5 grams 02/24/23 [Rx Confirmed 07/20/23] clonazepam 1 mg tablet 1 mg PO BID 05/24/23 [History Confirmed 07/20/23] venlafaxine 37.5 mg capsule,extended release 24 hr 37.5 mg PO QAM 05/26/23 [History Confirmed 07/20/23] sennosides 8.6 mg-docusate sodium 50 mg tablet (Senna with Docusate Sodium) 2 tab PO BID 05/31/23 [History Confirmed 07/20/23] clonazepam 0.5 mg tablet 1 mg PO BID PRN SEVERE ANXIETY 06/20/23 [History Confirmed 07/20/23] lidocaine-prilocaine 2.5 %-2.5 % topical cream 1 applic topical .COMPLEX #30 grams 07/12/23 [Rx Confirmed 07/20/23] metronidazole 500 mg tablet 500 mg PO TID 7 days #21 tabs 07/12/23 [Rx Confirmed 07/20/23] morphine 30 mg immediate release tablet 30 mg PO Q4H PRN pain 30 days #180 tabs 07/12/23 [Rx Confirmed 07/20/23] morphine 60 mg tablet,extended release 120 mg (2 x 60 mg) PO Q12H 30 days #120 tabs 07/12/23 [Rx Confirmed 07/20/23] lorazepam 1 mg tablet 0.5 - 1 mg (0.5 - 1 x 1 mg) PO Q6H PRN Severe Nausea #30 tabs 07/14/23 [Rx Confirmed 07/20/23] ondansetron HCl 4 mg tablet 4 mg PO QID PRN Nausea/vomiting #30 tabs 07/14/23 [Rx Confirmed 07/19/23] prochlorperazine maleate 10 mg tablet (Compazine) 10 mg PO Q4H PRN Mild Nausea #30 tabs 07/14/23 [Rx Confirmed 07/20/23] magnesium hydroxide 400 mg/5 mL oral suspension (Milk of Magnesia) 15 ml PO DAILY PRN Constipation 07/20/23 [History Confirmed 07/20/23] Discharge Plan Discharge Patient Disposition: Xfer Short-Term Hosp Prescriptions: No Action lidocaine-prilocaine 2.5-2.5 % cream 1 applic topical .COMPLEX Qty: 30 1RF Rx Instructions: 1 applic topically 30-45 minutes prior to appointment, cover with cling wrap; morphine 60 mg tablet extended release 120 mg PO Q12H 30 Days Qty: 120 0RF morphine 30 mg tablet 30 mg PO Q4H PRN (Reason: pain) 30 Days Qty: 180 0RF metronidazole 500 mg tablet 500 mg PO TID 7 Days Qty: 21 0RF clonazepam 1 mg tablet 1 mg PO BID sennosides-docusate sodium [Senna with Docusate Sodium] 8.6-50 mg tablet 2 tab PO BID potassium chloride 20 mEq tablet extended release 10 meq PO QAM albuterol sulfate 90 mcg/actuation HFA aerosol inhaler 2 inh inhalation Q8H PRN (Reason: shortness of breath or wheezing) Qty: 8.5 0RF venlafaxine 37.5 mg capsule,extended release 24hr 37.5 mg PO QAM ondansetron HCl 4 mg Tablet 4 mg PO QID PRN (Reason: Nausea/vomiting) Qty: 30 3RF prochlorperazine maleate [Compazine] 10 mg tablet 10 mg PO Q4H PRN (Reason: Mild Nausea) Qty: 30 3RF lorazepam 1 mg tablet 0.5 - 1 mg PO Q6H PRN (Reason: Severe Nausea) Qty: 30 3RF clonazepam 0.5 mg tablet 1 mg PO BID PRN (Reason: SEVERE ANXIETY) Milk of Magnesia 400 mg/5 mL Suspension 15 ml PO DAILY PRN (Reason: Constipation) Discharge Orders: Transfer Out of Facility (Order); Ordered 07/20/23 Ordered By: Laci Jaramillo Patient Instructions: Opioid Safety Transfer Attestations Time Spent in Transfer Care: greater than 30 min Quality Metrics Clinical Quality Measures [ No reported AMI, CVA or VTE this stay] Coding Level of Care Code Acute Code for Chg Fwd Diagnoses Malignant neoplasm of sigmoid colon C18.7 Fever R50.9 GI bleed K92.2 Tachycardia R00.0 Upper respiratory infection, acute J06.9
== END 2023-07-20 23:15 | disposition short-term general hospital (02) | DRG 375 ==
PROVIDERS: Admitting Provider Internal Medicine; PCP Family Medicine; Visit Provider Internal Medicine
DX: C18.7 Malignant neoplasm of sigmoid colon (principal); C78.7 Secondary malignant neoplasm of liver and intrahepatic bile duct; K56.699 Other intestinal obstruction unspecified as to partial versus complete obstruction; K92.2 Gastrointestinal hemorrhage, unspecified; F41.9 Anxiety disorder, unspecified; F32.9 Major depressive disorder, single episode, unspecified; Z86.711 Personal history of pulmonary embolism; Z79.01 Long term (current) use of anticoagulants; Z93.3 Colostomy status; G89.3 Neoplasm related pain (acute) (chronic); Z87.891 Personal history of nicotine dependence; R00.0 Tachycardia, unspecified; J06.9 Acute upper respiratory infection, unspecified; E86.0 Dehydration
CPT/HCPCS: 36415; 36591; 71045; 74177; 80053; 81001; 83605; 83735; 85025; 87040; 87486; 87581; 87633; 96360; 96361; 96365; 96372; 96375; C9113; J1100; J1170; J2270; J2405; J2543; J3370; J7030; J7040; J7042; J7050; Q9967